=== PATIENT | male | born 1955 | race Caucasian/White ===

== ENCOUNTER → 2016-04-11 | Outpatient (CLI) | payer MEDICARE, MEDICAID ==
[2016-04-11 15:27] LABS: PROTHROMBIN TIME 29.2 SEC (11.4-15.4)
== END ==
LOC: OD 14:45
PROVIDERS: ATTEND Internal Medicine Nephrology
DX: I82.409 Acute embolism and thrombosis of unspecified deep veins of unspecified lower extremity (principal); Z86.711 Personal history of pulmonary embolism; Z92.29 Personal history of other drug therapy
CPT/HCPCS: 36415; 85610

== ENCOUNTER 2016-04-26 12:05 | Emergency (ER) | payer MEDICARE, MEDICAID ==
--- NOTE | 2016-04-26 12:10 | ER Document Report ---
ED Medical Screen (RME) - General Stated Complaint: BREATHING PROBLEM Time seen by provider: 12:09 Mode of Arrival: Wheelchair Information source: Patient Notes: 60-year-old male presents to ED for shortness of breath. He has a history of an enlarged heart with possible CHF. His father states he is noncompliant with his blood pressure cholesterol and diabetes medicine. And does not check his sugar as he is has been instructed to. I have greeted and performed a rapid initial assessment of this patient. A comprehensive ED assessment and evaluation of the patient, analysis of test results and completion of medical decision making process will be conducted by an additional ED providers. TRAVEL OUTSIDE OF THE [place] IN LAST 30 DAYS: No - Related Data Allergies/Adverse Reactions: amlodipine Allergy (Verified 01/04/16 07:57) benazepril [Benazepril] Allergy (Verified 01/04/16 07:57) clonidine Allergy (Verified 01/04/16 07:57) codeine [Codeine] Allergy (Verified 01/04/16 07:57) haloperidol [From Haldol] Allergy (Verified 01/04/16 07:57) minoxidil Allergy (Verified 01/04/16 07:57) nalbuphine Allergy (Verified 01/04/16 07:57) oxycodone Allergy (Verified 01/04/16 07:57) Penicillins Allergy (Verified 01/04/16 07:57) perphenazine Allergy (Verified 01/04/16 07:57) propoxyphene Allergy (Verified 01/04/16 07:57) Sulfa (Sulfonamide Antibiotics) Allergy (Verified 01/04/16 07:57) topiramate Allergy (Verified 01/04/16 07:57) trifluoperazine [From Stelazine] Allergy (Verified 01/04/16 07:57) Past Medical History - Past Medical History Cardiac Medical History: Reports: Hx Congestive Heart Failure, Hx Coronary Artery Disease, Hx DVT, Hx Hypercholesterolemia, Hx Hypertension, Hx Pulmonary Embolism Denies: Hx Atrial Fibrillation, Hx Heart Attack, Hx Peripheral Vascular Disease, Hx Heart Murmur Pulmonary Medical History: Reports: Hx Asthma, Hx COPD, Hx Pneumonia, Hx Sleep Apnea Denies: Hx Bronchitis, Hx Respiratory Failure, Hx Tuberculosis Neurological Medical History: Denies: Hx Cerebrovascular Accident, Hx Seizures Endocrine Medical History: Reports: Hx Diabetes Mellitus Type 2. Denies: Hx Graves' Disease, Hx Hyperthyroidism, Hx Hypothyroidism Malignancy Medical History: Denies Hx Leukemia, Denies Hx Lung Cancer GI Medical History: Reports: Hx Hiatal Hernia. Denies: Hx Crohn's Disease, Hx Gastroesophageal Reflux Disease, Hx Irritable Bowel, Hx Liver Failure, Hx Ulcer Musculoskeltal Medical History: Denies Hx Arthritis, Denies Hx Fibromyalgia, Denies Hx Muscular Dystrophy Psychiatric Medical History: Reports: Hx Anxiety, Hx Depression, Hx Post Traumatic Stress Disorder, Hx Schizophrenia Denies: Hx Bipolar Disorder Traumatic Medical History: Reports: Hx Fractures Infectious Medical History: Denies: Hx HIV Past Surgical History: Reports: Hx Abdominal Surgery - hernia repair, Hx Cardiac Catheterization - 30% blockage, Hx Genitourinary Surgery - VASECTOMY, Hx Herniorrhaphy, Hx Oral Surgery - TOOTH EXTRACTION, Hx Orthopedic Surgery - PLATE SCREWS DISC AND BONE GRAFT: NECK, Hx Tonsillectomy. Denies: Hx Appendectomy, Hx Bowel Surgery, Hx Cholecystectomy, Hx Colostomy, Hx Coronary Artery Bypass Graft, Hx Gastric Bypass Surgery, Hx Pacemaker - Immunizations Hx Diphtheria, Pertussis, Tetanus Vaccination: No
[2016-04-26] MEDS ORDERED: ASPIRIN 81 MG TABLET, CHEWABLE PO ONE (12:11)
--- NOTE | 2016-04-26 12:48 | ER Document Report ---
ED General - General Chief Complaint: Shortness Of Breath Stated Complaint: BREATHING PROBLEM Mode of Arrival: Wheelchair Notes: This is a 60-year-old male with history of schizophrenia, CHF, hypertension, hyperlipidemia, diabetes mellitus, history of PE on chronic anticoagulation who presents complaining of increased shortness of breath. He states that he ran out of his Bumex but did take 2 of his dad's Bumex tablets last night. Patient states he is most comfortable lying flat due to back problems and his very large abdominal girth. He has been able to lay flat. He denies any chest pain. No fever. No cough. He states he was feeling worse last night but is doing somewhat better today. TRAVEL OUTSIDE OF THE [place] IN LAST 30 DAYS: No - Related Data Allergies/Adverse Reactions: amlodipine Allergy (Verified 04/26/16 12:11) benazepril [Benazepril] Allergy (Verified 04/26/16 12:11) clonidine Allergy (Verified 04/26/16 12:11) codeine [Codeine] Allergy (Verified 04/26/16 12:11) haloperidol [From Haldol] Allergy (Verified 04/26/16 12:11) minoxidil Allergy (Verified 04/26/16 12:11) nalbuphine Allergy (Verified 04/26/16 12:11) oxycodone Allergy (Verified 04/26/16 12:11) Penicillins Allergy (Verified 04/26/16 12:11) perphenazine Allergy (Verified 04/26/16 12:11) propoxyphene Allergy (Verified 04/26/16 12:11) Sulfa (Sulfonamide Antibiotics) Allergy (Verified 04/26/16 12:11) topiramate Allergy (Verified 04/26/16 12:11) trifluoperazine [From Stelazine] Allergy (Verified 04/26/16 12:11) Past Medical History - General Information source: Patient - Social History Smoking Status: Unknown if Ever Smoked Frequency of alcohol use: None Drug Abuse: None Lives with: Alone - Father lives close by and checks on him Family History: Reviewed & Not Pertinent Patient has suicidal ideation: No Patient has homicidal ideation: No - Past Medical History Cardiac Medical History: Reports: Hx Congestive Heart Failure, Hx Coronary Artery Disease, Hx DVT, Hx Hypercholesterolemia, Hx Hypertension, Hx Pulmonary Embolism Denies: Hx Atrial Fibrillation, Hx Heart Attack, Hx Peripheral Vascular Disease, Hx Heart Murmur Pulmonary Medical History: Reports: Hx Asthma, Hx COPD, Hx Pneumonia, Hx Sleep Apnea Denies: Hx Bronchitis, Hx Respiratory Failure, Hx Tuberculosis Neurological Medical History: Denies: Hx Cerebrovascular Accident, Hx Seizures Endocrine Medical History: Reports: Hx Diabetes Mellitus Type 2. Denies: Hx Graves' Disease, Hx Hyperthyroidism, Hx Hypothyroidism Renal/ Medical History: Denies: Hx Peritoneal Dialysis Malignancy Medical History: Denies Hx Leukemia, Denies Hx Lung Cancer GI Medical History: Reports: Hx Hiatal Hernia. Denies: Hx Crohn's Disease, Hx Gastroesophageal Reflux Disease, Hx Irritable Bowel, Hx Liver Failure, Hx Ulcer Musculoskeltal Medical History: Denies Hx Arthritis, Denies Hx Fibromyalgia, Denies Hx Muscular Dystrophy Psychiatric Medical History: Reports: Hx Anxiety, Hx Depression, Hx Post Traumatic Stress Disorder, Hx Schizophrenia Denies: Hx Bipolar Disorder Traumatic Medical History: Reports: Hx Fractures Infectious Medical History: Denies: Hx HIV Past Surgical History: Reports: Hx Abdominal Surgery - hernia repair, Hx Cardiac Catheterization - 30% blockage, Hx Genitourinary Surgery - VASECTOMY, Hx Herniorrhaphy, Hx Oral Surgery - TOOTH EXTRACTION, Hx Orthopedic Surgery - PLATE SCREWS DISC AND BONE GRAFT: NECK, Hx Tonsillectomy. Denies: Hx Appendectomy, Hx Bowel Surgery, Hx Cholecystectomy, Hx Colostomy, Hx Coronary Artery Bypass Graft, Hx Gastric Bypass Surgery, Hx Pacemaker - Immunizations Hx Diphtheria, Pertussis, Tetanus Vaccination: No Hx Pneumococcal Vaccination: 04/07/09 Review of Systems - Review of Systems Constitutional: denies: Fever EENT: denies: Nose congestion Cardiovascular: denies: Syncope Respiratory: Short of breath Gastrointestinal: denies: Abdominal pain, Vomiting Genitourinary: denies: Flank pain Musculoskeletal: Leg swelling Hematologic/Lymphatic: Blood clots Neurological/Psychological: denies: Numbness, Tingling Physical Exam - Vital signs Vitals: Resp Pulse Ox 24 H 100 04/26/16 12:30 04/26/16 12:30 - General General appearance: Alert In distress: None - Morbidly obese male, smiling, lying completely flat on the stretcher with 100% oxygen saturation - HEENT Head: Normocephalic Pupils: PERRL Nasal: Normal Mouth/Lips: Normal Pharynx: Normal Neck: Normal - Respiratory Respiratory status: No respiratory distress Breath sounds: Normal - Cardiovascular Rhythm: Regular - Abdominal Inspection: Morbidly Obese Tenderness: Nontender - Extremities General upper extremity: Normal inspection General lower extremity: Edema - Neurological Neuro grossly intact: Yes Orientation: AAOx4 - Psychological Associated symptoms: Normal affect - Skin Skin Temperature: Warm Skin Moisture: Dry Skin Color: Normal Course - Re-evaluation Re-evalutation: 04/26/16 12:47 Pleasant obese male with history of multiple comorbidities who looks completely comfortable lying supine on the stretcher, oxygen saturations are surprisingly 100%. He does have history of PE but states he's been compliant with his Coumadin. He was out of the Bumex temporarily but did get 2 tablets last night of his father's medications. We will perform some screening laboratories and a chest x-ray. I anticipate discharge. - Vital Signs Vital signs: Temp Pulse Resp BP Pulse Ox 24 H 100 04/26/16 12:30 04/26/16 12:30 - Laboratory Result Diagrams: 04/26/16 12:50 04/26/16 12:50 Laboratory results interpreted by me: 04/26/16 04/26/16 04/26/16 12:50 12:50 12:50 RDW 14.6 H PT 18.9 H Glucose 183 H Albumin 3.3 L Discharge - Discharge Clinical Impression: Pulmonary vascular congestion Condition: Good Disposition: HOME, SELF-CARE Additional Instructions: follow up with your doctor as soon as possible. Prescriptions: Bumetanide [Bumex 1 mg Tablet] 1 mg PO BID #60 tablet
--- NOTE | 2016-04-26 13:00 | EKG REPORT ---
SEVERITY:- NORMAL ECG - SINUS RHYTHM : Confirmed by: Richard Go MD 26-Apr-2016 13:00:15
[2016-04-26 13:17] LABS: ABSOLUTE EOSINOPHILS # (AUTO) 0.3 10^3/uL (0.0-0.6); ABSOLUTE LYMPHOCYTES (AUTO) 1.5 10^3/uL (0.5-4.7); ABSOLUTE MONOCYTES (AUTO) 0.6 10^3/uL (0.1-1.4); ABSOLUTE NEUT (AUTO) 5.4 10^3/uL (1.7-8.2); BASOPHILS % (AUTO) 0.6 % (0-2); EOSINOPHILS % (AUTO) 3.3 % (0-6); HEMATOCRIT 40.6 % (37.9-51.0); HEMOGLOBIN 13.5 g/dL (13.5-17.0); HGB HCT DIFFERENCE -0.1; LYMPHOCYTES % (AUTO) 19.3 % (13-45); MEAN CORPUSCULAR HEMOGLOBIN 28.1 pg (27.0-33.4); MEAN CORPUSCULAR HGB CONC 33.1 g/dL (32.0-36.0); MEAN CORPUSCULAR VOLUME 85 fl (80-97); RED CELL DISTRIBUTION WIDTH 14.6 % (11.5-14.0); SEGMENTED NEUTROPHILS % (AUTO) 68.8 % (42-78); WHITE BLOOD COUNT 7.8 10^3/uL (4.0-10.5)
[2016-04-26 13:20] LABS: PARTIAL THROMBOPLASTIN TIME 33.9 SEC (23.5-35.8); PROTHROMBIN TIME 18.9 SEC (11.4-15.4)
[2016-04-26 13:35] LABS: ALANINE AMINOTRANSFERASE 35 U/L (21-72); ALBUMIN 3.3 g/dL (3.5-5.0); ALKALINE PHOSPHATASE 94 U/L (38-126); ANION GAP 10 (5-19); ASPARTATE AMINO TRANSFERASE 28 U/L (17-59); BILIRUBIN,TOTAL 0.5 mg/dL (0.2-1.3); BLOOD UREA NITROGEN 17 mg/dL (7-20); CALCIUM 9.1 mg/dL (8.4-10.2); CARBON DIOXIDE 27 mmol/L (22-30); CHLORIDE 102 mmol/L (98-107); CREATINE KINASE 64 U/L (55-170); CREATININE RESULT 0.66 mg/dL (0.52-1.25); GLUCOSE 183 mg/dL (75-110); MAGNESIUM 1.8 mg/dL (1.6-2.3); POTASSIUM 3.6 mmol/L (3.6-5.0); TOTAL PROTEIN 6.4 g/dL (6.3-8.2)
[2016-04-26 13:45] LABS: CREATINE KINASE MB 0.77 ng/mL (<4.55)
[2016-04-26 13:48] LABS: TROPONIN I < 0.012 ng/mL
[2016-04-26 15:39] VITALS: BP 126/74
== END 2016-04-26 15:40 | disposition home or self-care (01) ==
LOC: ER 12:05
DX: I11.0 Hypertensive heart disease with heart failure (principal); I50.9 Heart failure, unspecified; E11.9 Type 2 diabetes mellitus without complications; R09.89 Other specified symptoms and signs involving the circulatory and respiratory systems; I82.409 Acute embolism and thrombosis of unspecified deep veins of unspecified lower extremity; I26.99 Other pulmonary embolism without acute cor pulmonale; I25.10 Atherosclerotic heart disease of native coronary artery without angina pectoris; I10 Essential (primary) hypertension; J44.9 Chronic obstructive pulmonary disease, unspecified; J45.909 Unspecified asthma, uncomplicated; E66.01 Morbid (severe) obesity due to excess calories; Z79.01 Long term (current) use of anticoagulants; Z88.8 Allergy status to other drugs, medicaments and biological substances; Z88.5 Allergy status to narcotic agent; Z88.0 Allergy status to penicillin; Z88.2 Allergy status to sulfonamides; Z87.01 Personal history of pneumonia (recurrent)
CPT/HCPCS: 93005; 99285; 36415; 82553; 82550; 83735; 85025; 85610; 85730; 80053; 84484; 83880; 71020; 93010; A9270

== ENCOUNTER → 2016-07-30 | Outpatient (CLI) | payer MEDICARE, MEDICAID ==
[2016-07-30 15:19] LABS: PROTHROMBIN TIME 26.4 SEC (11.4-15.4)
[2016-07-30 15:50] LABS: ALANINE AMINOTRANSFERASE 43 U/L (21-72); ALKALINE PHOSPHATASE 130 U/L (38-126); ANION GAP 13 (5-19); ASPARTATE AMINO TRANSFERASE 25 U/L (17-59); BILIRUBIN,DIRECT 0.2 mg/dL (0.0-0.4); BILIRUBIN,TOTAL 0.5 mg/dL (0.2-1.3); BLOOD UREA NITROGEN 10 mg/dL (7-20); CALCIUM 9.4 mg/dL (8.4-10.2); CARBON DIOXIDE 29 mmol/L (22-30); CHLORIDE 97 mmol/L (98-107); CREATININE RESULT 0.72 mg/dL (0.52-1.25); GLUCOSE 282 mg/dL (75-110); POTASSIUM 3.5 mmol/L (3.6-5.0); SODIUM 139.1 mmol/L (137-145); TOTAL PROTEIN 7.2 g/dL (6.3-8.2)
== END ==
LOC: OD 13:49
PROVIDERS: ATTEND Internal Medicine Nephrology
DX: E11.9 Type 2 diabetes mellitus without complications (principal); E78.2 Mixed hyperlipidemia; Z86.711 Personal history of pulmonary embolism
CPT/HCPCS: 36415; 80053; 83036; 85610

== ENCOUNTER 2016-10-09 01:01 | Inpatient (IN) | payer MEDICARE, MEDICAID ==
[2016-10-09] MEDS ORDERED: DOXYCYCLINE HYCLATE INJ 100 MG VIAL IV ONE (06:32)
[2016-10-09] MEDS ORDERED: IPRATROPIUM/ALBUTEROL 0.5-2.5 MG/3 ML AMPUL NEB ONE ×2 (06:33→20:39)
[2016-10-09 07:14] LABS: VENOUS BLOOD BASE EXCESS -3.5 mmol/L; VENOUS BLOOD HCO3 19.2 mmol/L (20-32); VENOUS BLOOD PH 7.45 (7.30-7.42)
[2016-10-09 07:15] LABS: HEMATOCRIT 42.9 % (37.9-51.0); HEMOGLOBIN 14.3 g/dL (13.5-17.0); MEAN CORPUSCULAR HEMOGLOBIN 28.4 pg (27.0-33.4); MEAN CORPUSCULAR HGB CONC 33.3 g/dL (32.0-36.0); MEAN CORPUSCULAR VOLUME 85 fl (80-97); RED BLOOD COUNT 5.03 10^6/uL (4.35-5.55); RED CELL DISTRIBUTION WIDTH 14.4 % (11.5-14.0); WHITE BLOOD COUNT 17.8 10^3/uL (4.0-10.5)
[2016-10-09 07:33] LABS: BLOOD UREA NITROGEN 16 mg/dL (7-20); CALCIUM 9.1 mg/dL (8.4-10.2); CREATININE RESULT 0.77 mg/dL (0.52-1.25); GLUCOSE 132 mg/dL (75-110)
[2016-10-09 07:34] LABS: ANION GAP 12 (5-19); CARBON DIOXIDE 25 mmol/L (22-30); CHLORIDE 101 mmol/L (98-107); POTASSIUM 3.1 mmol/L (3.6-5.0); SODIUM 138.1 mmol/L (137-145)
[2016-10-09 07:36] LABS: BASOPHILS % (MANUAL) 1 % (0-2); EOSINOPHILS % (MANUAL) 0 % (0-6); LYMPHOCYTES % (MANUAL) 3 % (13-45); TOTAL CELLS COUNTED 100
[2016-10-09 07:42] LABS: ANISOCYTOSIS SLIGHT; PLATELET CLUMPS PRESENT; POIKILOCYTOSIS SLIGHT; POLYCHROMASIA SLIGHT; TARGET CELLS SLIGHT; TEAR DROP CELLS SLIGHT
[2016-10-09 07:43] LABS: BAND NEUTROPHILS % (MANUAL) 11 % (3-5)
[2016-10-09 07:54] LABS: PROTHROMBIN TIME 20.6 SEC (11.4-15.4)
[2016-10-09 07:55] LABS: PARTIAL THROMBOPLASTIN TIME 37.4 SEC (23.5-35.8)
--- NOTE | 2016-10-09 08:14 | EKG REPORT ---
SEVERITY:- OTHERWISE NORMAL ECG - SINUS TACHYCARDIA BORDERLINE RIGHT AXIS DEVIATION : Confirmed by: Richard Go MD 09-Oct-2016 08:13:50
--- NOTE | 2016-10-09 08:32 | RADIOLOGY REPORT (SQ) ---
EXAM DESCRIPTION: CHEST PA/LAT COMPLETED DATE/TIME: 10/09/2016 8:10 am REASON FOR STUDY: sob COMPARISON: 04/26/2016 EXAM PARAMETERS: NUMBER OF VIEWS: two views TECHNIQUE: Digital Frontal and Lateral radiographic views of the chest acquired. RADIATION DOSE: NA LIMITATIONS: Poor quality images. FINDINGS: LUNGS AND PLEURA: No opacities, masses or pneumothorax. No pleural effusion. MEDIASTINUM AND HILAR STRUCTURES: No masses or contour abnormalities. HEART AND VASCULAR STRUCTURES: Mild cardiomegaly. BONES: No acute findings. HARDWARE: Status post anterior fusion in the cervical spine. OTHER: No other significant finding. IMPRESSION: Mild cardiomegaly without evidence of acute cardiopulmonary disease. TECHNICAL DOCUMENTATION: JOB ID: [id number]- All Rights Reserved
[2016-10-09] MEDS ORDERED: VANCOMYCIN HCL INJ 1000 MG VIAL IV ONE (09:27)
[2016-10-09] MEDS ORDERED: AMPICILLIN SOD/SULBACTAM 3 GM VIAL IV ONE (09:27)
[2016-10-09] MEDS ORDERED: AZTREONAM INJ 1 GM VIAL IV ONE (09:27)
[2016-10-09] MEDS ORDERED: NORMAL SALINE 1000 ML 1,000 ML IV ONE (09:27)
[2016-10-09] MEDS ORDERED: POTASSIUM CHLORIDE 10 MEQ TABLET.SA PO ONE ×2 (09:30→16:00)
[2016-10-09] MEDS ORDERED: TEMAZEPAM 15 MG CAPSULE PO PRN (09:31)
[2016-10-09] MEDS ORDERED: OXYCODONE-ACETAMINOPHEN 5-325 MG TABLET PO PRN (09:31)
[2016-10-09] MEDS ORDERED: ONDANSETRON HCL INJ/PF 4 MG/2 ML SDV IV PRN (09:31)
--- NOTE | 2016-10-09 09:34 | ER Document Report ---
ED General - General Chief Complaint: fever, body aches, breathing difficulty Stated Complaint: BODY PAIN/CHILLS Time Seen by Provider: 10/09/16 06:10 TRAVEL OUTSIDE OF THE [place] IN LAST 30 DAYS: No - HPI Patient complains to provider of: Fever chills right leg pain Notes: Patient coming in for evaluation of fevers chills right leg pain. Patient states ongoing for approximately last 24 hours. Patient also states mild shortness of breath however did not wear CPAP at night prior to arrival. Patient is lying flat on 2 L her oxygen without any other difficulty or signs of acute respiratory distress. Patient is a diabetic states compliant with medication. Patient states redness is spreading from the right lower extremity from the ankle up to the mid thigh. States as a burning sensation. States subjective fevers not recorded T-max. - Related Data Allergies/Adverse Reactions: amlodipine Allergy (Verified 04/26/16 12:11) benazepril [Benazepril] Allergy (Verified 04/26/16 12:11) clonidine Allergy (Verified 04/26/16 12:11) codeine [Codeine] Allergy (Verified 04/26/16 12:11) haloperidol [From Haldol] Allergy (Verified 04/26/16 12:11) minoxidil Allergy (Verified 04/26/16 12:11) nalbuphine Allergy (Verified 04/26/16 12:11) oxycodone Allergy (Verified 04/26/16 12:11) Penicillins Allergy (Verified 04/26/16 12:11) perphenazine Allergy (Verified 04/26/16 12:11) propoxyphene Allergy (Verified 04/26/16 12:11) Sulfa (Sulfonamide Antibiotics) Allergy (Verified 04/26/16 12:11) topiramate Allergy (Verified 04/26/16 12:11) trifluoperazine [From Stelazine] Allergy (Verified 04/26/16 12:11) Past Medical History - Social History Smoking Status: Unknown if Ever Smoked Family History: Reviewed & Not Pertinent - Past Medical History Cardiac Medical History: Reports: Hx Congestive Heart Failure, Hx Coronary Artery Disease, Hx DVT, Hx Hypercholesterolemia, Hx Hypertension, Hx Pulmonary Embolism Denies: Hx Atrial Fibrillation, Hx Heart Attack, Hx Peripheral Vascular Disease, Hx Heart Murmur Pulmonary Medical History: Reports: Hx Asthma, Hx COPD, Hx Pneumonia, Hx Sleep Apnea Denies: Hx Bronchitis, Hx Respiratory Failure, Hx Tuberculosis Neurological Medical History: Denies: Hx Cerebrovascular Accident, Hx Seizures Endocrine Medical History: Reports: Hx Diabetes Mellitus Type 2. Denies: Hx Graves' Disease, Hx Hyperthyroidism, Hx Hypothyroidism Renal/ Medical History: Denies: Hx Peritoneal Dialysis Malignancy Medical History: Denies Hx Leukemia, Denies Hx Lung Cancer GI Medical History: Reports: Hx Hiatal Hernia. Denies: Hx Crohn's Disease, Hx Gastroesophageal Reflux Disease, Hx Irritable Bowel, Hx Liver Failure, Hx Ulcer Musculoskeltal Medical History: Denies Hx Arthritis, Denies Hx Fibromyalgia, Denies Hx Muscular Dystrophy Psychiatric Medical History: Reports: Hx Anxiety, Hx Depression, Hx Post Traumatic Stress Disorder, Hx Schizophrenia Denies: Hx Bipolar Disorder Traumatic Medical History: Reports: Hx Fractures Infectious Medical History: Denies: Hx HIV Past Surgical History: Reports: Hx Abdominal Surgery - hernia repair, Hx Cardiac Catheterization - 30% blockage, Hx Genitourinary Surgery - VASECTOMY, Hx Herniorrhaphy, Hx Oral Surgery - TOOTH EXTRACTION, Hx Orthopedic Surgery - PLATE SCREWS DISC AND BONE GRAFT: NECK, Hx Tonsillectomy. Denies: Hx Appendectomy, Hx Bowel Surgery, Hx Cholecystectomy, Hx Colostomy, Hx Coronary Artery Bypass Graft, Hx Gastric Bypass Surgery, Hx Pacemaker - Immunizations Hx Diphtheria, Pertussis, Tetanus Vaccination: No Hx Pneumococcal Vaccination: 04/07/09 Review of Systems - Review of Systems Constitutional: Chills, Fever EENT: No symptoms reported Cardiovascular: No symptoms reported Respiratory: No symptoms reported Gastrointestinal: No symptoms reported Genitourinary: No symptoms reported Male Genitourinary: No symptoms reported Musculoskeletal: Other - Erythema of the right lower extremity Skin: No symptoms reported Hematologic/Lymphatic: No symptoms reported Neurological/Psychological: No symptoms reported Physical Exam - Vital signs Vitals: Temp Pulse Resp BP Pulse Ox 98.8 F 116 H 20 198/89 H 94 10/09/16 02:05 10/09/16 02:05 10/09/16 02:05 10/09/16 02:05 10/09/16 02:05 Interpretation: Hypertensive, Tachycardic - General General appearance: Appears well, Alert - HEENT Head: Normocephalic, Atraumatic Eyes: Normal Pupils: PERRL - Respiratory Respiratory status: No respiratory distress Chest status: Nontender Breath sounds: Normal Chest palpation: Normal - Cardiovascular Rhythm: Regular Heart sounds: Normal auscultation Murmur: No - Abdominal Inspection: Normal Distension: No distension Bowel sounds: Normal Tenderness: Nontender Organomegaly: No organomegaly - Back Back: Normal, Nontender - Extremities General upper extremity: Normal inspection, Nontender, Normal color, Normal ROM , Normal temperature General lower extremity: Nontender, Normal color, Normal ROM, Normal temperature , Normal weight bearing. No: Normal inspection - Erythema to the right lower extremity consistent with cellulitis from the ankle above the knee., Zahira's sign - Neurological Neuro grossly intact: Yes Cognition: Normal Orientation: AAOx4 [place] Coma Scale Eye Opening: Spontaneous Chad Coma Scale Verbal: Oriented [place] Coma Scale Motor: Obeys Commands [place] Coma Scale Total: 15 Speech: Normal Motor strength normal: LUE, RUE, LLE, RLE Sensory: Normal - Psychological Associated symptoms: Normal affect, Normal mood - Skin Skin Temperature: Warm Skin Moisture: Dry Skin Color: Normal Course - Re-evaluation Re-evalutation: 10/09/16 14:05 Patient examinations consistent with cellulitis. Patient has elevated leukocytosis with bandemia. Concern is the patient is diabetic. Patient case was discussed with hospitalist will admit for further evaluation. - Vital Signs Vital signs: Temp Pulse Resp BP Pulse Ox 100.3 F 105 H 189 H 150/76 H 96 10/09/16 12:00 10/09/16 12:00 10/09/16 13:39 10/09/16 12:00 10/09/16 13:39 - Laboratory Result Diagrams: 10/09/16 06:58 10/09/16 06:58 Laboratory results interpreted by me: 10/09/16 10/09/16 10/09/16 06:58 06:58 06:58 WBC 17.8 H RDW 14.4 H Seg Neuts % (Manual) 79 H Band Neutrophils % 11 H Lymphocytes % (Manual) 3 L Abs Neuts (Manual) 16.0 H PT 20.6 H APTT 37.4 H VBG pH VBG pCO2 VBG HCO3 Potassium 3.1 L Glucose 132 H 10/09/16 06:58 WBC RDW Seg Neuts % (Manual) Band Neutrophils % Lymphocytes % (Manual) Abs Neuts (Manual) PT APTT VBG pH 7.45 H VBG pCO2 28.0 L VBG HCO3 19.2 L Potassium Glucose Discharge - Discharge Clinical Impression: Morbid obesity with BMI of 50.0-59.9, adult, History of pulmonary embolism, Cellulitis right lower extremity, Diabetes Condition: Good Disposition: ADMITTED INPATIENT Admitting Provider: Shanita Cordoba [facility] Unit Admitted: Telemetry
[2016-10-09] MEDS ORDERED: DEXTROSE 50%-WATER 25 GM/50 ML DISP.SYRIN IV PRN ×2 (09:39)
[2016-10-09] MEDS ORDERED: DEXTROSE 40% GEL 15 GM TUBE PO PRN ×2 (09:39)
[2016-10-09] MEDS ORDERED: GLUCAGON,HUMAN RECOMB 1 MG INJ IM PRN (09:39)
[2016-10-09] MEDS ORDERED: VANCOMYCIN HCL 0 MG in DEXTROSE 5%-WATER 250 ML IV NR (10:30)
[2016-10-09 11:54] LABS: PROTHROMBIN TIME 21.3 SEC (11.4-15.4)
--- NOTE | 2016-10-09 12:18 | PDOC H&P ---
History of Present Illness Admission Date/PCP: 10/09/16 09:34 Patient complains of: Right lower leg cellulitis History of Present Illness: KI DAVIS JR is a 60 year old male with past medical history of diabetes mellitus type 2, morbid obesity, lower extremity DVT, COPD, not on home oxygen, Schizophrenia, depression and lower extremity dermatitis. H with complaints of right lower extremity e [facility] redness and generalized body aches. He denies any fevers or chills. He states the erythema of the right lower extremity began 24 hours ago and has significantly worsened. He denies any trauma to the lower extremity. He has chronic venous stasis changes in both lower extremities as well as history of bilateral DVTs. He is presently on warfarin with subtherapeutic INR. He verbalizes no other complaints at the present time. He denies any shortness of breath or dyspnea. He denies any chest pain. Past Medical History Cardiac Medical History: Reports: Congestive Heart Failure, Coronary Artery Disease, DVT, Hyperlipidema, Hypertension, Pulmonary Embolism Denies: Atrial Fibrillation, Myocardial Infarction, Peripheral Vascular Disease, Heart Murmur Pulmonary Medical History: Reports: Asthma, Chronic Obstructive Pulmonary Disease (COPD), Pneumonia, Sleep Apnea Denies: Bronchitis, Respiratory Failure, Tuberculosis EENT Medical History: Reports: None Neurological Medical History: Denies: Seizures Endocrine Medical History: Reports: Diabetes Mellitus Type 2 Denies: Hyperthyroidism, Hypothyroidism Malignancy Medical History: Denies: Breast Cancer, Cervical Cancer, Leukemia, Lung Cancer, Ovarian Cancer GI Medical History: Reports: Hiatal Hernia Denies: Crohn's Disease, Gastroesophageal Reflux Disease Musculoskeltal Medical History: Denies: Arthritis, Fibromyalgia Psychiatric Medical History: Reports: Depression, Post Traumatic Stress Disorder Denies: Bipolar Disorder Traumatic Medical History: Reports: None Hematology: Reports: None Denies: Anemia, Hemophilia, Sickle Cell Disease Infectious Medical History: Reports: None Denies: HIV Past Surgical History Past Surgical History: Reports: Cardiac Catheterization - 30% blockage, Herniorrhaphy, Orthopedic Surgery - PLATE SCREWS DISC AND BONE GRAFT: NECK, Tonsillectomy Denies: Appendectomy, Cholecystectomy, Colostomy, Coronary Artery Bypass Graft, Gastric Bypass Surgery, Pacemaker Social History Information Source: Patient Lives with: Family Smoking Status: Never Smoker Frequency of Alcohol Use: Rare Hx Recreational Drug Use: No Hx Prescription Drug Abuse: No - Advance Directive Resuscitation Status: Full Code Surrogate healthcare decision maker:: Parents Family History Family History: DM, Hypertension Parental Family History Reviewed: Yes Children Family History Reviewed: Yes Sibling(s) Family History Reviewed.: Yes Medication/Allergy Home Medications: Aspirin [Aspirin EC] 81 mg PO BID 11/29/15 Calcium Carbonate/Vitamin D3 [Calcium 500-Vit D3 400 Tablet] 1 tab PO DAILY PRN 11/29/15 Metformin HCl [Metformin HCl ER] 1,000 mg PO BID 11/29/15 Ubidecarenone [Co Q-10] 10 mg PO DAILY 11/29/15 Vitamin B Complex [B Complex] 1 each PO DAILY 11/29/15 Diphenhydramine HCl [Wal-Dryl] 50 mg PO Q6 PRN 11/30/15 Fexofenadine HCl [Chloe] 180 mg PO DAILY 11/30/15 Fluticasone Propionate [Flonase Nasal [place] 50 Mcg/[place] 16 gm] 2 ea NASL DAILY PRN 11/30/15 Gluc 2Kcl/Chondr/[place] Hy/Hy AC [Glucosamine & Chondroitin Cap] 2 ea PO BID 11/29 [place]-3/Dha/Epa/Fish Oil [Fish Oil 1,000 mg Softgel] 2 cap PO BID 11/30/15 Cariprazine Hydrochloride [Vraylar] 3 mg PO DAILY 12/01/15 Citalopram Hydrobromide [Citalopram HBr] 20 mg PO DAILY 12/01/15 Potassium Chloride 20 meq PO BID 12/01/15 Bumetanide [Bumex 1 mg Tablet] 1 mg PO BID #60 tablet 12/04/15 Carvedilol [Coreg] 25 tab PO BID 01/02/16 Tumeric 1 tab PO DAILY 01/02/16 Warfarin Sodium 5 mg PO .TTHSS 01/02/16 Warfarin Sodium [Coumadin] 10 mg PO .MWF 01/02/16 Enoxaparin Sodium [Lovenox] 1 dose SQ BID 01/04/16 Bumetanide [Bumex 1 mg Tablet] 1 mg PO BID #60 tablet 04/26/16 Allergies/Adverse Reactions: amlodipine Allergy (Verified 04/26/16 12:11) benazepril [Benazepril] Allergy (Verified 04/26/16 12:11) clonidine Allergy (Verified 04/26/16 12:11) codeine [Codeine] Allergy (Verified 04/26/16 12:11) haloperidol [From Haldol] Allergy (Verified 04/26/16 12:11) minoxidil Allergy (Verified 04/26/16 12:11) nalbuphine Allergy (Verified 04/26/16 12:11) oxycodone Allergy (Verified 04/26/16 12:11) Penicillins Allergy (Verified 04/26/16 12:11) perphenazine Allergy (Verified 04/26/16 12:11) propoxyphene Allergy (Verified 04/26/16 12:11) Sulfa (Sulfonamide Antibiotics) Allergy (Verified 04/26/16 12:11) topiramate Allergy (Verified 04/26/16 12:11) trifluoperazine [From Stelazine] Allergy (Verified 04/26/16 12:11) Review of Systems Constitutional: PRESENT: chills Eyes: PRESENT: as per HPI Ears: ABSENT: hearing changes Cardiovascular: ABSENT: chest pain, dyspnea on exertion, edema, orthropnea, palpitations Respiratory: ABSENT: cough, hemoptysis Gastrointestinal: ABSENT: abdominal pain, constipation, diarrhea, hematemesis, hematochezia, nausea, vomiting Genitourinary: ABSENT: dysuria, hematuria Musculoskeletal: PRESENT: back pain Integumentary: PRESENT: erythema, lesions - bilateral lower extremities wounds and dermatitis, wounds Neurological: ABSENT: abnormal gait, abnormal speech, confusion, dizziness, focal weakness, syncope Psychiatric: ABSENT: anxiety, depression, homidical ideation, suicidal ideation Endocrine: ABSENT: cold intolerance, heat intolerance, polydipsia, polyuria Hematologic/Lymphatic: ABSENT: easy bleeding, easy bruising Physical Exam Vital Signs: Temp Pulse Resp BP Pulse Ox 98.0 F 94 9 L 148/80 H 97 10/09/16 10:19 10/09/16 10:19 10/09/16 10:19 10/09/16 10:19 10/09/16 10:19 General appearance: PRESENT: no acute distress, morbidly obese, well-developed, well-nourished Head exam: PRESENT: atraumatic, normocephalic Eye exam: PRESENT: conjunctiva pink, EOMI, PERRLA. ABSENT: scleral icterus Ear exam: PRESENT: normal external ear exam Mouth exam: PRESENT: moist, tongue midline Neck exam: ABSENT: carotid bruit, JVD, lymphadenopathy, thyromegaly Respiratory exam: PRESENT: clear to auscultation katie. ABSENT: rales, rhonchi, wheezes Cardiovascular exam: PRESENT: RRR. ABSENT: diastolic murmur, rubs, systolic murmur Pulses: PRESENT: normal carotid pulses, normal radial pulses Vascular exam: PRESENT: normal capillary refill GI/Abdominal exam: PRESENT: normal bowel sounds, soft Rectal exam: PRESENT: deferred Extremities exam: PRESENT: calf tenderness, full ROM, tenderness - anterior, +1 edema, +2 edema Musculoskeletal exam: PRESENT: ambulatory, full ROM - -year-old, tenderness Neurological exam: PRESENT: alert, awake, oriented to person, oriented to place , oriented to time, oriented to situation, CN II-XII grossly intact, other. ABSENT: motor sensory deficit Psychiatric exam: PRESENT: appropriate affect, normal mood. ABSENT: homicidal ideation, suicidal ideation Skin exam: PRESENT: dry, intact, warm. ABSENT: cyanosis, rash Results Impressions: Chest X-Ray 10/09/16 06:32 IMPRESSION: Mild cardiomegaly without evidence of acute cardiopulmonary disease. Assessment & Plan - Diagnosis (1) Cellulitis of right lower extremity Is this a current diagnosis for this admission?: YesPlan: Will start IV broad spectrum antibiotic coverage with Clindamycin and Vancomycin after blood cultures x 2 obtained (2) Leucocytosis Qualifiers: Leukocytosis type: bandemia Qualified Code(s): D72.825 - Bandemia Is this a current diagnosis for this admission?: YesPlan: Broad spectrum IV antibiotics, blood cultures x 2 and follow (3) Diabetes Qualifiers: Is this a current diagnosis for this admission?: YesPlan: Continue home medications and sliding scale coverage (4) Dyslipidemia Plan: Continue statin (5) Hypertension Qualifiers: Hypertension type: essential hypertension Qualified Code(s): I10 - Essential (primary) hypertension Plan: Continue antihypertensives (6) COPD (chronic obstructive pulmonary disease) Qualifiers: Emphysema type: unspecified Is this a current diagnosis for this admission?: YesPlan: Continue inhalers and nebulizer treatments (7) Diastolic CHF Qualifiers: Congestive heart failure chronicity: chronic Qualified Code(s): I50.32 - Chronic diastolic (congestive) heart failure Is this a current diagnosis for this admission?: YesPlan: Patient appears euvolemic. Will continue current medications (8) History of pulmonary embolism Is this a current diagnosis for this admission?: YesPlan: Continue warfarin will increase dose patient is not therapeutic (9) Morbid obesity with BMI of 50.0-59.9, adult Plan: Counseled (10) AUTUMN (obstructive sleep apnea) Is this a current diagnosis for this admission?: YesPlan: CPAP at HS and prn - Time Time Spent: 50 to 70 Minutes Critical Time spent with patient: 25-34 minutes Medications reviewed and adjusted accordingly: Yes Anticipated discharge: Home with Homehealth - Inpatient Certification Medical Necessity: Significant Comorbidiites Make Outpatient Treatment Too Risky , Need for IV Antibiotics, Risk of Complication if Not Cared For in Hospital
[2016-10-09] MEDS: ENOXAPARIN SODIUM INJ 40 MG/0.4 ML DISP.SYRIN SUBCUT SCH (12:44)
[2016-10-09] MEDS: DOCUSATE SODIUM 100 MG CAPSULE PO SCH ×2 (12:45→17:28)
[2016-10-09] MEDS ORDERED: CLINDAMYCIN 600 MG/D5W RTU 50 ML IV SCH (14:00)
[2016-10-09 14:08] LABS: PATH REVIEW PATHOLOGIST REVIEWED
[2016-10-09] MEDS: VANCOMYCIN HCL 2,000 MG in DEXTROSE 5%-WATER 500 ML IV SCH ×2 (15:39→21:36)
[2016-10-09] MEDS: ACETAMINOPHEN 325 MG TABLET PO PRN ×2 (15:39→21:37)
[2016-10-09] MEDS: CLINDAMYCIN 600 MG/D5W RTU 600 MG/50 ML RTUPB IV SCH (17:28)
[2016-10-09] MEDS ORDERED: IPRATROPIUM/ALBUTEROL 0.5-2.5 MG/3 ML AMPUL NEB PRN (20:36)
[2016-10-09] MEDS ORDERED: WARFARIN SODIUM 7.5 MG TABLET PO SCH (22:00)
[2016-10-09] MEDS: INSULIN LISPRO 100 UNIT/ML 3 ML VIAL SUBCUT PRN (22:36)
[2016-10-10] MEDS: CLINDAMYCIN 600 MG/D5W RTU 600 MG/50 ML RTUPB IV SCH ×3 (01:05→17:26)
[2016-10-10] MEDS: IPRATROPIUM/ALBUTEROL 0.5-2.5 MG/3 ML AMPUL NEB SCH ×4 (01:43→20:13)
[2016-10-10] MEDS: VANCOMYCIN HCL 2,000 MG in DEXTROSE 5%-WATER 500 ML IV SCH ×3 (05:13→21:13)
[2016-10-10 07:07] LABS: ABSOLUTE LYMPHOCYTES (AUTO) 0.7 10^3/uL (0.5-4.7); ABSOLUTE MONOCYTES (AUTO) 0.8 10^3/uL (0.1-1.4); ABSOLUTE NEUT (AUTO) 12.5 10^3/uL (1.7-8.2); BASOPHILS % (AUTO) 0.2 % (0-2); HEMATOCRIT 37.3 % (37.9-51.0); HEMOGLOBIN 12.5 g/dL (13.5-17.0); HGB HCT DIFFERENCE 0.2; LYMPHOCYTES % (AUTO) 5.3 % (13-45); MEAN CORPUSCULAR HEMOGLOBIN 28.4 pg (27.0-33.4); MEAN CORPUSCULAR HGB CONC 33.6 g/dL (32.0-36.0); MEAN CORPUSCULAR VOLUME 84 fl (80-97); MONOCYTES % (AUTO) 5.9 % (3-13); RED BLOOD COUNT 4.42 10^6/uL (4.35-5.55); RED CELL DISTRIBUTION WIDTH 14.9 % (11.5-14.0); SEGMENTED NEUTROPHILS % (AUTO) 88.6 % (42-78); WHITE BLOOD COUNT 14.1 10^3/uL (4.0-10.5)
[2016-10-10 07:26] LABS: ANION GAP 10 (5-19); BLOOD UREA NITROGEN 12 mg/dL (7-20); CALCIUM 8.5 mg/dL (8.4-10.2); CARBON DIOXIDE 24 mmol/L (22-30); CHLORIDE 98 mmol/L (98-107); CREATININE RESULT 0.83 mg/dL (0.52-1.25); GLUCOSE 175 mg/dL (75-110); MAGNESIUM 1.7 mg/dL (1.6-2.3); POTASSIUM 3.5 mmol/L (3.6-5.0); SODIUM 132.4 mmol/L (137-145)
[2016-10-10] MEDS: ACETAMINOPHEN 325 MG TABLET PO PRN ×2 (08:21→17:25)
[2016-10-10] MEDS: INSULIN LISPRO 100 UNIT/ML 3 ML VIAL SUBCUT PRN ×3 (08:21→22:00)
[2016-10-10] MEDS ORDERED: POTASSIUM CHLORIDE 10 MEQ TABLET.SA PO ONE (09:47)
[2016-10-10] MEDS ORDERED: (PENDING PHARMACY ID) (Citalopram Hydrobromide [Citalopram Hbr] 20 MG) PO SCH (10:00)
[2016-10-10] MEDS ORDERED: ENOXAPARIN SODIUM SQ SCH (10:00)
[2016-10-10] MEDS ORDERED: CARIPRAZINE HYDROCHLORIDE 3 MG PO SCH ×2 (10:00→13:00)
[2016-10-10] MEDS: ENOXAPARIN SODIUM INJ 40 MG/0.4 ML DISP.SYRIN SUBCUT SCH (10:03)
[2016-10-10] MEDS: DOCUSATE SODIUM 100 MG CAPSULE PO SCH ×2 (10:03→17:26)
--- NOTE | 2016-10-10 11:40 | PDOC PROGRESS REPORT ---
Subjective Progress Note for:: 10/10/16 Subjective:: Patient is seen on morning rounds. He is resting in bedside chair eating breakfast. He states he feels better than yesterday but is still having pain in the right lower leg and some low grade fevers. He denies any shortness of breath or chest pain. He denies any nausea, diarrhea or abdominal pain. He states he has chronic pain in his back but other than that has no other complaints. Physical Exam Vital Signs: Temp Pulse Resp BP Pulse Ox 102.5 F H 105 H 24 H 147/79 H 95 10/10/16 07:41 10/10/16 07:41 10/10/16 07:41 10/10/16 07:41 10/10/16 07:41 Intake & Output 10/09/16 10/10/16 10/11/16 06:59 06:59 06:59 Intake Total 1820 Output Total 650 Balance 1170 Weight 190.7 kg General appearance: PRESENT: no acute distress, morbidly obese, well-developed, well-nourished Head exam: PRESENT: atraumatic, normocephalic Eye exam: PRESENT: conjunctiva pink, EOMI, PERRLA. ABSENT: scleral icterus Ear exam: PRESENT: normal external ear exam Mouth exam: PRESENT: moist, tongue midline Neck exam: ABSENT: carotid bruit, JVD, lymphadenopathy, thyromegaly Respiratory exam: PRESENT: clear to auscultation katie, decreased breath sounds, symmetrical, unlabored Cardiovascular exam: PRESENT: RRR. ABSENT: diastolic murmur, rubs, systolic murmur Pulses: PRESENT: normal carotid pulses, normal radial pulses Vascular exam: PRESENT: normal capillary refill GI/Abdominal exam: PRESENT: normal bowel sounds, soft Rectal exam: PRESENT: deferred Extremities exam: PRESENT: calf tenderness, tenderness, +2 edema - right lower extremity, +1 left lower extremity Musculoskeletal exam: PRESENT: ambulatory, full ROM, tenderness Neurological exam: PRESENT: alert, awake, oriented to person, oriented to place , oriented to time, oriented to situation, CN II-XII grossly intact. ABSENT: motor sensory deficit Psychiatric exam: PRESENT: anxious Skin exam: PRESENT: erythema, rash - anterior shins, warm, other Results Laboratory Results: 10/10/16 06:27 10/10/16 06:27 10/10/16 10/10/16 06:27 06:27 WBC 14.1 H RBC 4.42 Hgb 12.5 L Hct 37.3 L MCV 84 MCH 28.4 MCHC 33.6 RDW 14.9 H Plt Count 168 Seg Neutrophils % 88.6 H Lymphocytes % 5.3 L Monocytes % 5.9 Eosinophils % 0.0 Basophils % 0.2 Absolute Neutrophils 12.5 H Absolute Lymphocytes 0.7 Absolute Monocytes 0.8 Absolute Eosinophils 0.0 Absolute Basophils 0.0 Sodium 132.4 L Potassium 3.5 L Chloride 98 Carbon Dioxide 24 Anion Gap 10 BUN 12 Creatinine 0.83 Est GFR ( Amer) > 60 Est GFR (Non-Af Amer) > 60 Glucose 175 H Calcium 8.5 Magnesium 1.7 Impressions: Chest X-Ray 10/09/16 06:32 IMPRESSION: Mild cardiomegaly without evidence of acute cardiopulmonary disease. Assessment & Plan - Diagnosis (1) Cellulitis of right lower extremity Is this a current diagnosis for this admission?: YesPlan: Continue current IV antibiotics. Bandemia has resolved. WBCs trending downward (2) Leucocytosis Qualifiers: Leukocytosis type: bandemia Qualified Code(s): D72.825 - Bandemia Is this a current diagnosis for this admission?: YesPlan: Broad spectrum IV antibiotics, blood cultures x 2 and follow (3) Diabetes Qualifiers: Is this a current diagnosis for this admission?: YesPlan: Continue home medications and sliding scale coverage (4) Dyslipidemia Plan: Continue statin (5) Hypertension Qualifiers: Hypertension type: essential hypertension Qualified Code(s): I10 - Essential (primary) hypertension Plan: Continue antihypertensives (6) COPD (chronic obstructive pulmonary disease) Qualifiers: Emphysema type: unspecified Is this a current diagnosis for this admission?: YesPlan: Continue inhalers and nebulizer treatments (7) Diastolic CHF Qualifiers: Congestive heart failure chronicity: chronic Qualified Code(s): I50.32 - Chronic diastolic (congestive) heart failure Is this a current diagnosis for this admission?: YesPlan: Patient appears euvolemic. Will continue current medications (8) History of pulmonary embolism Is this a current diagnosis for this admission?: YesPlan: Continue warfarin will increase dose patient is not therapeutic (9) Morbid obesity with BMI of 50.0-59.9, adult Plan: Counseled (10) AUTUMN (obstructive sleep apnea) Is this a current diagnosis for this admission?: YesPlan: CPAP at HS and prn - Time Time Spent with patient: 25-34 minutes Critical Time spent with patient: 15-24 minutes Medications reviewed and adjusted accordingly: Yes
[2016-10-10] MEDS ORDERED: DIPHENHYDRAMINE HCL 25 MG PO PRN (11:41)
[2016-10-10] MEDS ORDERED: CARVEDILOL 12.5 MG TABLET PO ONE ×2 (12:00→16:00)
[2016-10-10] MEDS ORDERED: BUMETANIDE 1 MG TABLET PO ONE ×2 (12:00→16:00)
[2016-10-10] MEDS ORDERED: DIPHENHYDRAMINE HCL 25 MG CAPSULE PO PRN (12:58)
[2016-10-10] MEDS: CITALOPRAM HYDROBROMIDE 20 MG TABLET PO SCH (15:13)
[2016-10-10] MEDS: METFORMIN HCL 500 MG TABLET PO SCH (15:14)
[2016-10-10] MEDS: GLIMEPIRIDE 1 MG TABLET PO SCH (17:24)
[2016-10-10] MEDS ORDERED: BUMETANIDE 1 MG TABLET PO SCH (18:00)
[2016-10-10] MEDS: NIFEDIPINE 30 MG TAB.ER.24 PO SCH (21:13)
[2016-10-10] MEDS: BUMETANIDE 1 MG TABLET PO SCH (21:15)
[2016-10-10] MEDS: WARFARIN SODIUM 7.5 MG TABLET PO SCH (21:15)
[2016-10-10] MEDS: CARVEDILOL 12.5 MG TABLET PO SCH (21:15)
[2016-10-10] MEDS ORDERED: (PENDING PHARMACY ID) (Nifedipine [Nifedipine Er] 90 MG) PO SCH (22:00)
[2016-10-11] MEDS: CLINDAMYCIN 600 MG/D5W RTU 600 MG/50 ML RTUPB IV SCH ×3 (01:29→17:10)
[2016-10-11] MEDS: IPRATROPIUM/ALBUTEROL 0.5-2.5 MG/3 ML AMPUL NEB SCH ×4 (02:11→20:46)
[2016-10-11 04:57] LABS: ABSOLUTE BASOPHILS # (AUTO) 0.1 10^3/uL (0.0-0.2); ABSOLUTE LYMPHOCYTES (AUTO) 1.1 10^3/uL (0.5-4.7); ABSOLUTE MONOCYTES (AUTO) 1.2 10^3/uL (0.1-1.4); BASOPHILS % (AUTO) 0.7 % (0-2); EOSINOPHILS % (AUTO) 0.1 % (0-6); HEMATOCRIT 36.1 % (37.9-51.0); HEMOGLOBIN 12.1 g/dL (13.5-17.0); HGB HCT DIFFERENCE 0.2; LYMPHOCYTES % (AUTO) 6.9 % (13-45); MEAN CORPUSCULAR HEMOGLOBIN 28.8 pg (27.0-33.4); MEAN CORPUSCULAR HGB CONC 33.6 g/dL (32.0-36.0); MEAN CORPUSCULAR VOLUME 86 fl (80-97); MONOCYTES % (AUTO) 7.6 % (3-13); RED CELL DISTRIBUTION WIDTH 14.8 % (11.5-14.0); SEGMENTED NEUTROPHILS % (AUTO) 84.7 % (42-78); WHITE BLOOD COUNT 15.4 10^3/uL (4.0-10.5)
[2016-10-11 05:13] LABS: ANION GAP 10 (5-19); BLOOD UREA NITROGEN 14 mg/dL (7-20); CALCIUM 8.7 mg/dL (8.4-10.2); CARBON DIOXIDE 26 mmol/L (22-30); CHLORIDE 97 mmol/L (98-107); CREATININE RESULT 0.91 mg/dL (0.52-1.25); GLUCOSE 140 mg/dL (75-110); POTASSIUM 4.2 mmol/L (3.6-5.0); SODIUM 132.7 mmol/L (137-145)
[2016-10-11] MEDS: VANCOMYCIN HCL 2,000 MG in DEXTROSE 5%-WATER 500 ML IV SCH ×3 (05:15→22:10)
[2016-10-11] MEDS: NIFEDIPINE 30 MG TAB.ER.24 PO SCH ×2 (09:17→22:10)
[2016-10-11] MEDS: CARVEDILOL 12.5 MG TABLET PO SCH ×2 (09:17→22:06)
[2016-10-11] MEDS: METFORMIN HCL 500 MG TABLET PO SCH ×2 (09:17→16:21)
[2016-10-11] MEDS: GLIMEPIRIDE 1 MG TABLET PO SCH ×2 (09:18→17:10)
[2016-10-11] MEDS: BUMETANIDE 1 MG TABLET PO SCH ×2 (09:22→22:06)
[2016-10-11] MEDS: DOCUSATE SODIUM 100 MG CAPSULE PO SCH ×2 (09:23→17:21)
[2016-10-11 09:25] LABS: PROTHROMBIN TIME 22.9 SEC (11.4-15.4)
[2016-10-11] MEDS ORDERED: (PENDING PHARMACY ID) (Brexpiprazole [Rexulti] 2 MG) PO SCH (10:00)
[2016-10-11] MEDS ORDERED: (PENDING PHARMACY ID) (Warfarin Sodium [Coumadin] 10 MG) PO SCH (10:00)
[2016-10-11] MEDS: INSULIN LISPRO 100 UNIT/ML 3 ML VIAL SUBCUT PRN ×2 (12:41→17:11)
[2016-10-11] MEDS: CITALOPRAM HYDROBROMIDE 20 MG TABLET PO SCH (12:41)
[2016-10-11] MEDS: NYSTATIN 500000 UNIT/5 ML UDCUP PO SCH ×3 (16:21→22:10)
--- NOTE | 2016-10-11 16:28 | PDOC PROGRESS REPORT ---
Subjective Progress Note for:: 10/11/16 Subjective:: Patient is seen on morning rounds. He is resting in bedside chair eating breakfast. He states he feels better than yesterday but is still having pain in the right lower leg and some low grade fevers. He denies any shortness of breath or chest pain. He denies any nausea, diarrhea or abdominal pain. He states he has chronic pain in his back but other than that has no other complaints. Physical Exam Vital Signs: Temp Pulse Resp BP Pulse Ox 100.6 F H 87 22 H 134/68 H 97 10/11/16 11:09 10/11/16 11:09 10/11/16 11:09 10/11/16 11:09 10/11/16 11:09 Intake & Output 10/10/16 10/11/16 10/12/16 06:59 06:59 06:59 Intake Total 1820 2880 Output Total 650 Balance 1170 2880 Weight 190.7 kg 192.4 kg General appearance: PRESENT: no acute distress, morbidly obese, well-developed, well-nourished Head exam: PRESENT: atraumatic, normocephalic Eye exam: PRESENT: conjunctiva pink, EOMI, PERRLA. ABSENT: scleral icterus Ear exam: PRESENT: normal external ear exam Mouth exam: PRESENT: moist, tongue midline Neck exam: ABSENT: carotid bruit, JVD, lymphadenopathy, thyromegaly Respiratory exam: PRESENT: clear to auscultation katie, symmetrical, unlabored. ABSENT: rales, rhonchi, wheezes Cardiovascular exam: PRESENT: RRR. ABSENT: diastolic murmur, rubs, systolic murmur Pulses: PRESENT: normal carotid pulses, normal radial pulses Vascular exam: PRESENT: other GI/Abdominal exam: PRESENT: normal bowel sounds, soft. ABSENT: distended, guarding, mass, organolmegaly, rebound, tenderness Rectal exam: PRESENT: deferred Extremities exam: PRESENT: full ROM. ABSENT: calf tenderness, clubbing, pedal edema Neurological exam: PRESENT: alert, awake, oriented to person, oriented to place , oriented to time, oriented to situation, CN II-XII grossly intact. ABSENT: motor sensory deficit Psychiatric exam: PRESENT: appropriate affect, normal mood. ABSENT: homicidal ideation, suicidal ideation Skin exam: PRESENT: dry, intact, warm. ABSENT: cyanosis, rash Results Laboratory Results: 10/11/16 04:22 10/11/16 04:22 10/11/16 10/11/16 04:22 04:22 WBC 15.4 H RBC 4.20 L Hgb 12.1 L Hct 36.1 L MCV 86 MCH 28.8 MCHC 33.6 RDW 14.8 H Plt Count 176 Seg Neutrophils % 84.7 H Lymphocytes % 6.9 L Monocytes % 7.6 Eosinophils % 0.1 Basophils % 0.7 Absolute Neutrophils 13.0 H Absolute Lymphocytes 1.1 Absolute Monocytes 1.2 Absolute Eosinophils 0.0 Absolute Basophils 0.1 Sodium 132.7 L Potassium 4.2 Chloride 97 L Carbon Dioxide 26 Anion Gap 10 BUN 14 Creatinine 0.91 Est GFR ( Amer) > 60 Est GFR (Non-Af Amer) > 60 Glucose 140 H Calcium 8.7 Impressions: Chest X-Ray 10/09/16 06:32 IMPRESSION: Mild cardiomegaly without evidence of acute cardiopulmonary disease. Assessment & Plan - Diagnosis (1) Cellulitis of right lower extremity Is this a current diagnosis for this admission?: YesPlan: Continue current IV antibiotics. Bandemia has resolved. WBCs trending downward (2) Leucocytosis Qualifiers: Leukocytosis type: bandemia Qualified Code(s): D72.825 - Bandemia Is this a current diagnosis for this admission?: YesPlan: Broad spectrum IV antibiotics, blood cultures x 2 and follow (3) Diabetes Qualifiers: Is this a current diagnosis for this admission?: YesPlan: Continue home medications and sliding scale coverage (4) Dyslipidemia Plan: Continue statin (5) Hypertension Qualifiers: Hypertension type: essential hypertension Qualified Code(s): I10 - Essential (primary) hypertension Plan: Continue antihypertensives (6) COPD (chronic obstructive pulmonary disease) Qualifiers: Emphysema type: unspecified Is this a current diagnosis for this admission?: YesPlan: Continue inhalers and nebulizer treatments (7) Diastolic CHF Qualifiers: Congestive heart failure chronicity: chronic Qualified Code(s): I50.32 - Chronic diastolic (congestive) heart failure Is this a current diagnosis for this admission?: YesPlan: Patient appears euvolemic. Will continue current medications (8) History of pulmonary embolism Is this a current diagnosis for this admission?: YesPlan: Continue warfarin will increase dose patient is not therapeutic (9) Morbid obesity with BMI of 50.0-59.9, adult Plan: Counseled (10) AUTUMN (obstructive sleep apnea) Is this a current diagnosis for this admission?: YesPlan: CPAP at HS and prn - Time Time Spent with patient: 25-34 minutes Critical Time spent with patient: 15-24 minutes Smoking Cessation Education: 3 to 10 minutes Medications reviewed and adjusted accordingly: Yes Anticipated discharge: Home - Inpatient Certification Based on my medical assessment, after consideration of the patient's comorbidities, presenting symptoms, or acuity I expect that the services needed warrant INPATIENT care.: Yes
[2016-10-11] MEDS: LACTOBACILLUS ACIDOPHILUS 250 MG TAB PO SCH (17:10)
[2016-10-11] MEDS ORDERED: WARFARIN SODIUM 5 MG TABLET PO SCH (22:00)
[2016-10-12] MEDS: CLINDAMYCIN 600 MG/D5W RTU 600 MG/50 ML RTUPB IV SCH ×3 (01:54→17:55)
[2016-10-12] MEDS: IPRATROPIUM/ALBUTEROL 0.5-2.5 MG/3 ML AMPUL NEB SCH ×4 (02:14→20:32)
[2016-10-12 05:31] LABS: ABSOLUTE BASOPHILS # (AUTO) 0.1 10^3/uL (0.0-0.2); ABSOLUTE EOSINOPHILS # (AUTO) 0.1 10^3/uL (0.0-0.6); ABSOLUTE MONOCYTES (AUTO) 1.1 10^3/uL (0.1-1.4); ABSOLUTE NEUT (AUTO) 9.3 10^3/uL (1.7-8.2); BASOPHILS % (AUTO) 0.5 % (0-2); EOSINOPHILS % (AUTO) 0.7 % (0-6); HEMOGLOBIN 11.5 g/dL (13.5-17.0); HGB HCT DIFFERENCE -0.5; LYMPHOCYTES % (AUTO) 8.6 % (13-45); MEAN CORPUSCULAR HEMOGLOBIN 27.9 pg (27.0-33.4); MEAN CORPUSCULAR HGB CONC 32.8 g/dL (32.0-36.0); MEAN CORPUSCULAR VOLUME 85 fl (80-97); MONOCYTES % (AUTO) 9.6 % (3-13); RED BLOOD COUNT 4.11 10^6/uL (4.35-5.55); SEGMENTED NEUTROPHILS % (AUTO) 80.6 % (42-78); WHITE BLOOD COUNT 11.5 10^3/uL (4.0-10.5)
[2016-10-12] MEDS: VANCOMYCIN HCL 2,000 MG in DEXTROSE 5%-WATER 500 ML IV SCH ×3 (06:13→21:49)
[2016-10-12] MEDS ORDERED: (PENDING PHARMACY ID) (Warfarin Sodium 7.5 MG) PO SCH (10:00)
[2016-10-12] MEDS: DOCUSATE SODIUM 100 MG CAPSULE PO SCH ×2 (10:04→17:56)
[2016-10-12] MEDS: CARVEDILOL 12.5 MG TABLET PO SCH ×2 (10:04→21:51)
[2016-10-12] MEDS: LACTOBACILLUS ACIDOPHILUS 250 MG TAB PO SCH ×2 (10:05→17:56)
[2016-10-12] MEDS: GLIMEPIRIDE 1 MG TABLET PO SCH ×2 (10:05→17:56)
[2016-10-12] MEDS: NYSTATIN 500000 UNIT/5 ML UDCUP PO SCH ×4 (10:05→21:49)
[2016-10-12] MEDS: NIFEDIPINE 30 MG TAB.ER.24 PO SCH ×2 (10:05→21:50)
[2016-10-12] MEDS: BUMETANIDE 1 MG TABLET PO SCH ×2 (10:07→21:50)
[2016-10-12] MEDS: METFORMIN HCL 500 MG TABLET PO SCH ×2 (10:09→16:56)
[2016-10-12] MEDS: CITALOPRAM HYDROBROMIDE 20 MG TABLET PO SCH (12:08)
[2016-10-12 15:07] LABS: CREATININE RESULT 1.01 mg/dL (0.52-1.25)
--- NOTE | 2016-10-12 16:00 | PDOC PROGRESS REPORT ---
Subjective Progress Note for:: 10/12/16 Subjective:: Patient is seen on morning rounds. He is resting in bedside chair eating breakfast. He states he feels better than yesterday but is still having pain in the right lower leg. He has not had any fevers overnight He denies any shortness of breath or chest pain. He denies any nausea, diarrhea or abdominal pain. He states he has chronic pain in his back but other than that has no other complaints. Physical Exam Vital Signs: Temp Pulse Resp BP Pulse Ox 98.0 F 86 19 127/62 H 98 10/12/16 15:13 10/12/16 15:13 10/12/16 15:13 10/12/16 15:13 10/12/16 15:13 Intake & Output 10/11/16 10/12/16 10/13/16 06:59 06:59 06:59 Intake Total 2880 2817 1080 Output Total 200 Balance 2880 2617 1080 Weight 192.4 kg 193.3 kg General appearance: PRESENT: no acute distress, morbidly obese, well-developed, well-nourished Head exam: PRESENT: atraumatic, normocephalic Eye exam: PRESENT: conjunctiva pink, EOMI, PERRLA. ABSENT: scleral icterus Ear exam: PRESENT: normal external ear exam Mouth exam: PRESENT: moist, tongue midline Neck exam: ABSENT: carotid bruit, JVD, lymphadenopathy, thyromegaly Respiratory exam: PRESENT: clear to auscultation katie. ABSENT: rales, rhonchi, wheezes Cardiovascular exam: PRESENT: RRR. ABSENT: diastolic murmur, rubs, systolic murmur Pulses: PRESENT: normal dorsalis pedis pul Vascular exam: PRESENT: normal capillary refill GI/Abdominal exam: PRESENT: normal bowel sounds, soft. ABSENT: distended, guarding, mass, organolmegaly, rebound, tenderness Rectal exam: PRESENT: deferred Extremities exam: PRESENT: full ROM. ABSENT: calf tenderness, clubbing, pedal edema Neurological exam: PRESENT: alert, awake, oriented to person, oriented to place , oriented to time, oriented to situation, CN II-XII grossly intact. ABSENT: motor sensory deficit Psychiatric exam: PRESENT: anxious Skin exam: PRESENT: erythema, rash - anterior bilateral rashes, warm Results Laboratory Results: 10/12/16 04:41 10/12/16 14:06 10/12/16 10/12/16 04:41 14:06 WBC 11.5 H RBC 4.11 L Hgb 11.5 L Hct 35.0 L MCV 85 MCH 27.9 MCHC 32.8 RDW 14.0 Plt Count 169 Seg Neutrophils % 80.6 H Lymphocytes % 8.6 L Monocytes % 9.6 Eosinophils % 0.7 Basophils % 0.5 Absolute Neutrophils 9.3 H Absolute Lymphocytes 1.0 Absolute Monocytes 1.1 Absolute Eosinophils 0.1 Absolute Basophils 0.1 Creatinine 1.01 Est GFR ( Amer) > 60 Est GFR (Non-Af Amer) > 60 Impressions: Chest X-Ray 10/09/16 06:32 IMPRESSION: Mild cardiomegaly without evidence of acute cardiopulmonary disease. Assessment & Plan - Diagnosis (1) Cellulitis of right lower extremity Is this a current diagnosis for this admission?: YesPlan: Continue current IV antibiotics. Bandemia has resolved. WBCs trending downward (2) Leucocytosis Qualifiers: Leukocytosis type: bandemia Qualified Code(s): D72.825 - Bandemia Is this a current diagnosis for this admission?: YesPlan: Resolving (3) Diabetes Qualifiers: Is this a current diagnosis for this admission?: YesPlan: Continue home medications and sliding scale coverage (4) Dyslipidemia Plan: Continue statin (5) Hypertension Qualifiers: Hypertension type: essential hypertension Qualified Code(s): I10 - Essential (primary) hypertension Plan: Continue antihypertensives (6) COPD (chronic obstructive pulmonary disease) Qualifiers: Emphysema type: unspecified Is this a current diagnosis for this admission?: YesPlan: Continue inhalers and nebulizer treatments (7) Diastolic CHF Qualifiers: Congestive heart failure chronicity: chronic Qualified Code(s): I50.32 - Chronic diastolic (congestive) heart failure Is this a current diagnosis for this admission?: YesPlan: Patient appears euvolemic. Will continue current medications (8) History of pulmonary embolism Is this a current diagnosis for this admission?: YesPlan: Continue warfarin will increase dose patient is not therapeutic (9) Morbid obesity with BMI of 50.0-59.9, adult Plan: Counseled (10) AUTUMN (obstructive sleep apnea) Is this a current diagnosis for this admission?: YesPlan: CPAP at HS and prn - Time Time Spent with patient: 25-34 minutes Critical Time spent with patient: 15-24 minutes Medications reviewed and adjusted accordingly: Yes Anticipated discharge: Home with Homehealth - Inpatient Certification Based on my medical assessment, after consideration of the patient's comorbidities, presenting symptoms, or acuity I expect that the services needed warrant INPATIENT care.: Yes
[2016-10-12] MEDS: INSULIN LISPRO 100 UNIT/ML 3 ML VIAL SUBCUT PRN (16:56)
[2016-10-12] MEDS: WARFARIN SODIUM 7.5 MG TABLET PO SCH (21:50)
[2016-10-12] MEDS: ACETAMINOPHEN 325 MG TABLET PO PRN (21:50)
[2016-10-13] MEDS: CLINDAMYCIN 600 MG/D5W RTU 600 MG/50 ML RTUPB IV SCH ×3 (01:15→18:36)
[2016-10-13] MEDS: IPRATROPIUM/ALBUTEROL 0.5-2.5 MG/3 ML AMPUL NEB SCH ×4 (02:23→19:57)
[2016-10-13] MEDS: VANCOMYCIN HCL 2,000 MG in DEXTROSE 5%-WATER 500 ML IV SCH (05:44)
[2016-10-13] MEDS: METFORMIN HCL 500 MG TABLET PO SCH ×2 (08:12→15:13)
[2016-10-13] MEDS: CARVEDILOL 12.5 MG TABLET PO SCH ×2 (09:45→22:26)
[2016-10-13] MEDS: NIFEDIPINE 30 MG TAB.ER.24 PO SCH ×2 (09:46→22:26)
[2016-10-13] MEDS: LACTOBACILLUS ACIDOPHILUS 250 MG TAB PO SCH ×2 (09:46→18:36)
[2016-10-13] MEDS: BUMETANIDE 1 MG TABLET PO SCH ×2 (09:46→22:26)
[2016-10-13] MEDS: NYSTATIN 500000 UNIT/5 ML UDCUP PO SCH ×4 (09:46→22:31)
[2016-10-13] MEDS: GLIMEPIRIDE 1 MG TABLET PO SCH ×2 (09:47→18:36)
[2016-10-13] MEDS: DOCUSATE SODIUM 100 MG CAPSULE PO SCH ×2 (09:48→18:37)
--- NOTE | 2016-10-13 10:00 | PDOC PROGRESS REPORT ---
Subjective Progress Note for:: 10/13/16 Subjective:: Patient is seen on morning rounds. He is resting in bedside chair eating breakfast. He states he slept well last night. He is still having some pain in right lower leg but it is improving. Leg is now draining some serous fluid from blisters. He has not had any fevers overnight He denies any shortness of breath or chest pain. He denies any nausea, diarrhea or abdominal pain. He states he has chronic pain in his back but other than that has no other complaints. Physical Exam Vital Signs: Temp Pulse Resp BP Pulse Ox 98.3 F 95 16 119/61 90 L 10/13/16 07:51 10/13/16 09:09 10/13/16 09:09 10/13/16 07:51 10/13/16 09:09 Intake & Output 10/12/16 10/13/16 10/14/16 06:59 06:59 06:59 Intake Total 2817 3130 Output Total 200 100 Balance 2617 3030 Weight 193.3 kg 196.4 kg General appearance: PRESENT: no acute distress, morbidly obese, well-developed, well-nourished Head exam: PRESENT: atraumatic, normocephalic Eye exam: PRESENT: conjunctiva pink, EOMI, PERRLA. ABSENT: scleral icterus Ear exam: PRESENT: normal external ear exam Mouth exam: PRESENT: moist, tongue midline Teeth exam: PRESENT: edentulous Neck exam: ABSENT: carotid bruit, JVD, lymphadenopathy, thyromegaly Respiratory exam: PRESENT: clear to auscultation katie. ABSENT: rales, rhonchi, wheezes Cardiovascular exam: PRESENT: RRR. ABSENT: diastolic murmur, rubs, systolic murmur Pulses: PRESENT: normal carotid pulses, normal radial pulses Vascular exam: PRESENT: normal capillary refill GI/Abdominal exam: PRESENT: normal bowel sounds, soft. ABSENT: distended, guarding, mass, organolmegaly, rebound, tenderness Rectal exam: PRESENT: deferred Extremities exam: PRESENT: full ROM. ABSENT: calf tenderness, clubbing, pedal edema Neurological exam: PRESENT: alert, awake, oriented to person, oriented to place , oriented to time, oriented to situation, CN II-XII grossly intact. ABSENT: motor sensory deficit Psychiatric exam: PRESENT: appropriate affect, normal mood. ABSENT: homicidal ideation, suicidal ideation Skin exam: PRESENT: dry, intact, warm. ABSENT: cyanosis, rash Results Laboratory Results: 10/12/16 04:41 10/12/16 14:06 10/12/16 14:06 Creatinine 1.01 Est GFR ( Amer) > 60 Est GFR (Non-Af Amer) > 60 Impressions: Chest X-Ray 10/09/16 06:32 IMPRESSION: Mild cardiomegaly without evidence of acute cardiopulmonary disease. Assessment & Plan - Diagnosis (1) Cellulitis of right lower extremity Is this a current diagnosis for this admission?: YesPlan: Continue current IV antibiotics. Bandemia has resolved. WBCs trending downward (2) Leucocytosis Qualifiers: Leukocytosis type: bandemia Qualified Code(s): D72.825 - Bandemia Is this a current diagnosis for this admission?: YesPlan: Resolving (3) Diabetes Qualifiers: Is this a current diagnosis for this admission?: YesPlan: Continue home medications and sliding scale coverage (4) Dyslipidemia Plan: Continue statin (5) Hypertension Qualifiers: Hypertension type: essential hypertension Qualified Code(s): I10 - Essential (primary) hypertension Plan: Continue antihypertensives (6) COPD (chronic obstructive pulmonary disease) Qualifiers: Emphysema type: unspecified Is this a current diagnosis for this admission?: Yes (7) Diastolic CHF Qualifiers: Congestive heart failure chronicity: chronic Qualified Code(s): I50.32 - Chronic diastolic (congestive) heart failure Is this a current diagnosis for this admission?: YesPlan: Patient appears euvolemic. Will continue current medications (8) History of pulmonary embolism Is this a current diagnosis for this admission?: YesPlan: Continue warfarin will increase dose patient is not therapeutic (9) Morbid obesity with BMI of 50.0-59.9, adult Plan: Counseled (10) AUTUMN (obstructive sleep apnea) Is this a current diagnosis for this admission?: YesPlan: CPAP at HS and prn - Time Time Spent with patient: 25-34 minutes Critical Time spent with patient: 15-24 minutes Medications reviewed and adjusted accordingly: Yes
[2016-10-13] MEDS: CITALOPRAM HYDROBROMIDE 20 MG TABLET PO SCH (11:49)
[2016-10-13] MEDS: VANCOMYCIN HCL 1,500 MG in DEXTROSE 5%-WATER 250 ML IV SCH (19:25)
[2016-10-13] MEDS: WARFARIN SODIUM 7.5 MG TABLET PO SCH (22:27)
[2016-10-14] MEDS: IPRATROPIUM/ALBUTEROL 0.5-2.5 MG/3 ML AMPUL NEB SCH ×4 (01:57→20:03)
[2016-10-14] MEDS: CLINDAMYCIN 600 MG/D5W RTU 600 MG/50 ML RTUPB IV SCH ×3 (02:31→17:14)
[2016-10-14] MEDS: VANCOMYCIN HCL 1,500 MG in DEXTROSE 5%-WATER 250 ML IV SCH ×3 (03:24→18:12)
[2016-10-14 06:49] LABS: HEMATOCRIT 34.6 % (37.9-51.0); HEMOGLOBIN 11.3 g/dL (13.5-17.0); HGB HCT DIFFERENCE -0.7; MEAN CORPUSCULAR HEMOGLOBIN 27.8 pg (27.0-33.4); MEAN CORPUSCULAR HGB CONC 32.6 g/dL (32.0-36.0); MEAN CORPUSCULAR VOLUME 85 fl (80-97); RED BLOOD COUNT 4.07 10^6/uL (4.35-5.55); RED CELL DISTRIBUTION WIDTH 14.5 % (11.5-14.0); WHITE BLOOD COUNT 15.5 10^3/uL (4.0-10.5)
[2016-10-14 06:55] LABS: PROTHROMBIN TIME 28.4 SEC (11.4-15.4)
[2016-10-14 06:56] LABS: ANION GAP 11 (5-19); BLOOD UREA NITROGEN 21 mg/dL (7-20); CALCIUM 8.4 mg/dL (8.4-10.2); CARBON DIOXIDE 22 mmol/L (22-30); CHLORIDE 93 mmol/L (98-107); CREATININE RESULT 0.88 mg/dL (0.52-1.25); GLUCOSE 130 mg/dL (75-110); POTASSIUM 3.8 mmol/L (3.6-5.0); SODIUM 126.3 mmol/L (137-145)
[2016-10-14 07:07] LABS: BAND NEUTROPHILS % (MANUAL) 4 % (3-5); BASOPHILS % (MANUAL) 0 % (0-2); EOSINOPHILS % (MANUAL) 0 % (0-6); LYMPHOCYTES % (MANUAL) 3 % (13-45); TOTAL CELLS COUNTED 100
[2016-10-14 07:11] LABS: TOXIC GRANULATION SLIGHT; TOXIC VACUOLATION PRESENT
[2016-10-14 07:12] LABS: ANISOCYTOSIS SLIGHT; HYPOCHROMASIA SLIGHT; POLYCHROMASIA SLIGHT
[2016-10-14] MEDS: METFORMIN HCL 500 MG TABLET PO SCH ×2 (08:52→17:14)
[2016-10-14] MEDS: GLIMEPIRIDE 1 MG TABLET PO SCH ×2 (10:09→17:15)
[2016-10-14] MEDS: DOCUSATE SODIUM 100 MG CAPSULE PO SCH ×2 (10:09→17:26)
[2016-10-14] MEDS: LACTOBACILLUS ACIDOPHILUS 250 MG TAB PO SCH ×2 (10:09→17:15)
[2016-10-14] MEDS: CARVEDILOL 12.5 MG TABLET PO SCH ×2 (10:09→21:17)
[2016-10-14] MEDS: NIFEDIPINE 30 MG TAB.ER.24 PO SCH ×2 (10:09→21:17)
[2016-10-14] MEDS: NYSTATIN 500000 UNIT/5 ML UDCUP PO SCH ×4 (10:09→21:18)
[2016-10-14] MEDS: CITALOPRAM HYDROBROMIDE 20 MG TABLET PO SCH (11:08)
[2016-10-14] MEDS ORDERED: CETIRIZINE 10 MG TABLET PO SCH (12:00)
[2016-10-14] MEDS ORDERED: FLUTICASONE NASAL SPRAY 50 MCG/SPRY 120 SPRAY/16 GM NASL SCH (12:00)
[2016-10-14] MEDS: CEFEPIME 2 GM/D5W RTU 2 GM/50 ML RTUPB IV SCH ×2 (14:57→23:02)
[2016-10-14] MEDS: ACETAMINOPHEN 325 MG TABLET PO PRN (14:59)
[2016-10-14] MEDS ORDERED: ONDANSETRON HCL INJ/PF 4 MG/2 ML SDV IV PRN (15:22)
[2016-10-14] MEDS ORDERED: TEMAZEPAM 15 MG CAPSULE PO PRN (15:23)
[2016-10-14] MEDS ORDERED: OXYCODONE-ACETAMINOPHEN 5-325 MG TABLET PO PRN (15:24)
--- NOTE | 2016-10-14 15:29 | PDOC PROGRESS REPORT ---
Subjective Progress Note for:: 10/14/16 Subjective:: Patient is seen on morning rounds. He is resting in bed on CPAP. He states he slept well last night. He is still having some pain in right lower leg but it is improving. Leg is now draining some serous fluid from blisters. He has not had any fevers overnight He denies any shortness of breath or chest pain. He denies any nausea, diarrhea or abdominal pain. He states he has chronic pain in his back but other than that has no other complaints. Physical Exam Vital Signs: Temp Pulse Resp BP Pulse Ox 98.3 F 81 18 143/69 H 96 10/14/16 11:35 10/14/16 14:00 10/14/16 14:00 10/14/16 11:35 10/14/16 14:00 Intake & Output 10/13/16 10/14/16 10/15/16 06:59 06:59 06:59 Intake Total 3130 5390 Output Total 100 2550 Balance 3030 2840 Weight 196.4 kg 196.4 kg General appearance: PRESENT: no acute distress, cooperative, morbidly obese, well-developed, well-nourished Head exam: PRESENT: atraumatic, normocephalic Eye exam: PRESENT: conjunctiva pink, EOMI, PERRLA. ABSENT: scleral icterus Ear exam: PRESENT: normal external ear exam Mouth exam: PRESENT: moist, tongue midline Neck exam: ABSENT: carotid bruit, JVD, lymphadenopathy, thyromegaly Respiratory exam: PRESENT: clear to auscultation katie, symmetrical, unlabored. ABSENT: rales, rhonchi, wheezes Cardiovascular exam: PRESENT: RRR. ABSENT: diastolic murmur, rubs, systolic murmur Pulses: PRESENT: normal carotid pulses, normal radial pulses Vascular exam: PRESENT: normal capillary refill GI/Abdominal exam: PRESENT: soft Rectal exam: PRESENT: deferred Extremities exam: PRESENT: full ROM, tenderness - +3 edema of left lower extremity, with blistered areas that are draining. Improvement of erythema an, other - Left lower extremity with several eschared areas of dermatitis and vesicles from edema that have burst and are draining.. ABSENT: calf tenderness , clubbing, pedal edema Musculoskeletal exam: PRESENT: tenderness Neurological exam: PRESENT: alert, awake, oriented to person, oriented to place , oriented to time, oriented to situation, CN II-XII grossly intact. ABSENT: motor sensory deficit Psychiatric exam: PRESENT: flat affect Skin exam: PRESENT: abrasion, erythema, skin tears, vesicles, other Results Laboratory Results: 10/14/16 05:43 10/14/16 05:43 10/14/16 10/14/16 05:43 05:43 WBC 15.5 H RBC 4.07 L Hgb 11.3 L Hct 34.6 L MCV 85 MCH 27.8 MCHC 32.6 RDW 14.5 H Plt Count 261 Seg Neutrophils % Not Reportable Lymphocytes % Not Reportable Monocytes % Not Reportable Eosinophils % Not Reportable Basophils % Not Reportable Absolute Neutrophils Not Reportable Absolute Lymphocytes Not Reportable Absolute Monocytes Not Reportable Absolute Eosinophils Not Reportable Absolute Basophils Not Reportable Sodium 126.3 L Potassium 3.8 Chloride 93 L Carbon Dioxide 22 Anion Gap 11 BUN 21 H Creatinine 0.88 Est GFR ( Amer) > 60 Est GFR (Non-Af Amer) > 60 Glucose 130 H Calcium 8.4 Impressions: Chest X-Ray 10/09/16 06:32 IMPRESSION: Mild cardiomegaly without evidence of acute cardiopulmonary disease. Assessment & Plan - Diagnosis (1) Cellulitis of right lower extremity Is this a current diagnosis for this admission?: YesPlan: Continue current IV antibiotics. Erythema has improved. Slight increase in leucocytosis today. Will continue IV antibiotics (2) Leucocytosis Qualifiers: Leukocytosis type: bandemia Qualified Code(s): D72.825 - Bandemia Is this a current diagnosis for this admission?: YesPlan: Bump up today after trending downward. Blood cultures are negative. Wound culture is pending (3) Diabetes Qualifiers: Is this a current diagnosis for this admission?: YesPlan: Continue home medications and sliding scale coverage (5) Hypertension Qualifiers: Hypertension type: essential hypertension Qualified Code(s): I10 - Essential (primary) hypertension (6) COPD (chronic obstructive pulmonary disease) Qualifiers: Emphysema type: unspecified Is this a current diagnosis for this admission?: Yes (7) Diastolic CHF Qualifiers: Congestive heart failure chronicity: chronic Qualified Code(s): I50.32 - Chronic diastolic (congestive) heart failure Is this a current diagnosis for this admission?: YesPlan: Patient appears euvolemic. Will continue current medications (8) History of pulmonary embolism Is this a current diagnosis for this admission?: YesPlan: Continue warfarin will increase dose patient is not therapeutic (9) Morbid obesity with BMI of 50.0-59.9, adult Plan: Counseled (10) AUTUMN (obstructive sleep apnea) Is this a current diagnosis for this admission?: YesPlan: CPAP at HS and prn (11) Anticoagulant long-term use Plan: On Warfarin. Hx DVTs and PE (12) Lower extremity deep venous thrombosis Qualifiers: Chronicity: chronic Laterality: bilateral Is this a current diagnosis for this admission?: YesPlan: Patient has history of bilateral lower extremity DVTs . He is anticoagulated on Warfarin with therapeutic INR (13) Hyponatremia Is this a current diagnosis for this admission?: YesPlan: Appears slightly hypovolemic secondary to infection and chronic diuretic therapy. Will hold Bumex today, recheck in am with serum osmolality - Time Time Spent with patient: 25-34 minutes Critical Time spent with patient: 15-24 minutes Medications reviewed and adjusted accordingly: Yes
[2016-10-14 18:28] LABS: CREATININE RESULT 0.94 mg/dL (0.52-1.25)
[2016-10-14] MEDS: MONTELUKAST SODIUM 10 MG TABLET PO SCH (21:18)
[2016-10-14] MEDS: WARFARIN SODIUM 7.5 MG TABLET PO SCH (21:18)
[2016-10-15] MEDS: CLINDAMYCIN 600 MG/D5W RTU 600 MG/50 ML RTUPB IV SCH ×3 (01:21→18:18)
[2016-10-15] MEDS: IPRATROPIUM/ALBUTEROL 0.5-2.5 MG/3 ML AMPUL NEB SCH ×4 (01:48→20:47)
[2016-10-15 04:53] LABS: ABSOLUTE BASOPHILS # (AUTO) 0.1 10^3/uL (0.0-0.2); ABSOLUTE EOSINOPHILS # (AUTO) 0.3 10^3/uL (0.0-0.6); ABSOLUTE LYMPHOCYTES (AUTO) 1.1 10^3/uL (0.5-4.7); ABSOLUTE MONOCYTES (AUTO) 1.4 10^3/uL (0.1-1.4); ABSOLUTE NEUT (AUTO) 12.8 10^3/uL (1.7-8.2); BASOPHILS % (AUTO) 0.8 % (0-2); EOSINOPHILS % (AUTO) 1.7 % (0-6); HEMATOCRIT 33.5 % (37.9-51.0); HEMOGLOBIN 11.3 g/dL (13.5-17.0); HGB HCT DIFFERENCE 0.4; LYMPHOCYTES % (AUTO) 6.9 % (13-45); MEAN CORPUSCULAR HEMOGLOBIN 28.1 pg (27.0-33.4); MEAN CORPUSCULAR HGB CONC 33.6 g/dL (32.0-36.0); MEAN CORPUSCULAR VOLUME 84 fl (80-97); MONOCYTES % (AUTO) 8.7 % (3-13); RED BLOOD COUNT 4.01 10^6/uL (4.35-5.55); RED CELL DISTRIBUTION WIDTH 14.7 % (11.5-14.0); SEGMENTED NEUTROPHILS % (AUTO) 81.9 % (42-78); WHITE BLOOD COUNT 15.6 10^3/uL (4.0-10.5)
[2016-10-15 05:06] LABS: ANION GAP 11 (5-19); BLOOD UREA NITROGEN 20 mg/dL (7-20); CALCIUM 8.6 mg/dL (8.4-10.2); CARBON DIOXIDE 23 mmol/L (22-30); CHLORIDE 95 mmol/L (98-107); CREATININE RESULT 0.95 mg/dL (0.52-1.25); GLUCOSE 108 mg/dL (75-110); POTASSIUM 4.1 mmol/L (3.6-5.0); SODIUM 128.6 mmol/L (137-145)
[2016-10-15] MEDS: NYSTATIN 500000 UNIT/5 ML UDCUP PO SCH ×4 (10:18→21:46)
[2016-10-15] MEDS: CARVEDILOL 12.5 MG TABLET PO SCH ×2 (10:41→21:35)
[2016-10-15] MEDS: GLIMEPIRIDE 1 MG TABLET PO SCH ×2 (10:41→18:19)
[2016-10-15] MEDS: NIFEDIPINE 30 MG TAB.ER.24 PO SCH ×2 (10:42→21:35)
[2016-10-15] MEDS: METFORMIN HCL 500 MG TABLET PO SCH (10:42)
[2016-10-15] MEDS: LACTOBACILLUS ACIDOPHILUS 250 MG TAB PO SCH ×2 (10:42→18:19)
[2016-10-15] MEDS: DOCUSATE SODIUM 100 MG CAPSULE PO SCH ×2 (10:44→18:15)
--- NOTE | 2016-10-15 11:54 | PDOC PROGRESS REPORT ---
Subjective Progress Note for:: 10/15/16 Subjective:: reason for visit: f/u cellulitis hospital course: per other's notes - "KI DAVIS JR is a 60 year old male with past medical history of diabetes mellitus type 2, morbid obesity, lower extremity DVT, COPD, not on home oxygen,Schizophrenia, depression and lower extremity dermatitis. H with complaints of right lower extremity e presents to [facility] emergency department redness and generalized body aches. He denies any fevers or chills. He states the erythema of the right lower extremity began 24 hours ago and has significantly worsened. He ( initially) denies any trauma to the lower extremity. He has chronic venous stasis changes in both lower extremities as well as history of bilateral DVTs. He is presently on warfarin with subtherapeutic INR. He verbalizes no other complaints at the present time. He denies any shortness of breath or dyspnea. He denies any chest pain." he was admitted and started on broad spectrum abx with little improvement, blisters continue to form and leg is weeping more with clear yellow, sticky fluid saturating the bed and dripping onto the floor when in dependent position. His mother confronted me in the [place] to inform me that his right foot fell through the floor of his home about a month ago leaving a deep scrape that he refused to seek treatment of, choosing instead to treat with soaks and salves at home until finally presenting to the ED this admit. he continues to c/o pain in the leg as sharp, stabbing in the calf radiating up in to his hip and down into his foot, better if left dangling, worse with palpation, constant and slightly worse than yesterday. ROS: all systems reviewed, see above, remaining systems negative. Physical Exam Vital Signs: Temp Pulse Resp BP Pulse Ox 99.0 F 82 18 146/70 H 95 10/15/16 07:28 10/15/16 09:20 10/15/16 09:20 10/15/16 07:28 10/15/16 09:20 Intake & Output 10/14/16 10/15/16 10/16/16 06:59 06:59 06:59 Intake Total 5390 2390 Output Total 2550 4150 Balance 2840 -1760 Weight 196.4 kg 183.6 kg General appearance: PRESENT: no acute distress, morbidly obese, well-developed, well-nourished Head exam: PRESENT: atraumatic, normocephalic Eye exam: PRESENT: EOMI. ABSENT: scleral icterus Mouth exam: PRESENT: moist, tongue midline Teeth exam: PRESENT: poor dentation Neck exam: PRESENT: full ROM. ABSENT: tracheal deviation Respiratory exam: PRESENT: crackles, rhonchi, unlabored, wheezes. ABSENT: accessory muscle use Cardiovascular exam: PRESENT: RRR, tachycardia Pulses: PRESENT: normal radial pulses Vascular exam: PRESENT: pallor - bilat feet GI/Abdominal exam: PRESENT: normal bowel sounds - massive pannus, soft. ABSENT : tenderness Extremities exam: PRESENT: clubbing. ABSENT: calf tenderness Musculoskeletal exam: PRESENT: ambulatory, full ROM Neurological exam: PRESENT: alert, awake, oriented to person, oriented to place , oriented to time Psychiatric exam: PRESENT: appropriate affect, normal mood Skin exam: PRESENT: rash - Right lower leg is encompassed with coalescing blisters and sloughing of skin with cool to the touch bright red erythema from top of foot to just below the knee, weeping clear yellow thin sticky fluid, no foul odor. right leg and calf a full 2-3cms larger than left., warm Results Laboratory Results: 10/15/16 04:11 10/15/16 04:11 10/14/16 10/15/16 10/15/16 17:53 04:11 04:11 WBC 15.6 H RBC 4.01 L Hgb 11.3 L Hct 33.5 L MCV 84 MCH 28.1 MCHC 33.6 RDW 14.7 H Plt Count 289 Seg Neutrophils % 81.9 H Lymphocytes % 6.9 L Monocytes % 8.7 Eosinophils % 1.7 Basophils % 0.8 Absolute Neutrophils 12.8 H Absolute Lymphocytes 1.1 Absolute Monocytes 1.4 Absolute Eosinophils 0.3 Absolute Basophils 0.1 Sodium 128.6 L Potassium 4.1 Chloride 95 L Carbon Dioxide 23 Anion Gap 11 BUN 20 Creatinine 0.94 0.95 Est GFR ( Amer) > 60 > 60 Est GFR (Non-Af Amer) > 60 > 60 Glucose 108 Serum Osmolality Calcium 8.6 Magnesium 2.0 C-Reactive Protein 10/15/16 10/15/16 04:11 04:11 WBC RBC Hgb Hct MCV MCH MCHC RDW Plt Count Seg Neutrophils % Lymphocytes % Monocytes % Eosinophils % Basophils % Absolute Neutrophils Absolute Lymphocytes Absolute Monocytes Absolute Eosinophils Absolute Basophils Sodium Potassium Chloride Carbon Dioxide Anion Gap BUN Creatinine Est GFR ( Amer) Est GFR (Non-Af Amer) Glucose Serum Osmolality 271 L Calcium Magnesium C-Reactive Protein 185.0 H culx's so far not helpful Impressions: Chest X-Ray 10/09/16 06:32 IMPRESSION: Mild cardiomegaly without evidence of acute cardiopulmonary disease. Status: Imported from PACS Assessment & Plan - Diagnosis (1) Cellulitis of right lower extremity Is this a current diagnosis for this admission?: YesPlan: this is his primary and most pressing problem and not really getting better with abx, worrisome for staph scalded skin syndrome given its appearance and apparent worsening. ck u/s leg for occlusive DVT given his hx and subTx INR at presentation. On review of the record, I do not see where we have documented actual clot in imaging, unclear how long he's been on warfarin. May need more advance imaging of the leg for deep tissue wound. trend CRP. (2) Diabetes Qualifiers: Diabetes mellitus type: type 2 Diabetes mellitus complication status: with circulatory complication Diabetes mellitus complication detail: with peripheral angiopathy without gangrene Diabetes mellitus watermaster insulin use: with watermaster use Qualified Code(s): E11.51 - Type 2 diabetes mellitus with diabetic peripheral angiopathy without gangrene; Z79.4 - termite renewal inspector (current) use of insulin Is this a current diagnosis for this admission?: YesPlan: continue current regimen but hold metformin in case we need CT of the leg with contrast (3) Hypertension Qualifiers: Hypertension type: essential hypertension Qualified Code(s): I10 - Essential (primary) hypertension Is this a current diagnosis for this admission?: YesPlan: not at goal, titrate regimen as needed to reach <125/85 (4) Hyponatremia Is this a current diagnosis for this admission?: YesPlan: slightly better today, continue to monitor (5) Anticoagulant long-term use Plan: therapeutic today, continue monitor INR. (6) COPD (chronic obstructive pulmonary disease) Qualifiers: Emphysema type: unspecified Is this a current diagnosis for this admission?: YesPlan: a little wheezing today, continue nebs (7) Diastolic CHF Qualifiers: Congestive heart failure chronicity: chronic Qualified Code(s): I50.32 - Chronic diastolic (congestive) heart failure Is this a current diagnosis for this admission?: Yes (8) History of pulmonary embolism Is this a current diagnosis for this admission?: Yes (10) AUTUMN (obstructive sleep apnea) Is this a current diagnosis for this admission?: Yes - Time Time Spent with patient: 35 or more minutes Medications reviewed and adjusted accordingly: Yes - Plan Summary Plan Summary: f/u venous dopplers and if continues to worsen then get ct leg with contrast and may need debridement if deep tissue wound noted
--- NOTE | 2016-10-15 11:57 | XCELERA REPORT ---
[address] [address] Lower Extremity Venous Evaluation Name: KI DAVIS VincentJR Age: 60 yrs Gender: Male : 1955 Patient Status: Inpatient Patient Location: 4N\S\[facility]\S\A Study Date: 10/15/2016 11:07 AM Procedure: Color flow and duplex imaging of the veins of the right lower extremity as well as the left Common Femoral vein. Reason For Study: Rt leg swelling, hx of remote DVT, subTx INR Ordering Physician: MICHELLE AVALOS Performed By: Bon Jackson Right Sided Venous Evaluation Normal vessel filling wall to wall, compression and augmentation as well as Colour flow down to the infrageniculate veins. Left Sided Venous Evaluation The left common femoral vein is fully compressible. Spontaneous and phasic flow is present in the left common femoral vein. Interpretation Summary No duplex evidence of DVT or obstruction in the right lower extremity nor in the left Common Femoral vein. : MICHELLE AVALOS > Christiano Camargo
[2016-10-15] MEDS: VANCOMYCIN HCL 1,250 MG in DEXTROSE 5%-WATER 250 ML IV SCH ×2 (13:02→21:35)
[2016-10-15] MEDS: FLUTICASONE NASAL SPRAY 50 MCG/SPRY 120 SPRAY/16 GM NASL SCH (13:11)
[2016-10-15] MEDS: CITALOPRAM HYDROBROMIDE 20 MG TABLET PO SCH (13:11)
[2016-10-15] MEDS: CETIRIZINE 10 MG TABLET PO SCH (13:11)
[2016-10-15] MEDS: CEFEPIME 2 GM/D5W RTU 2 GM/50 ML RTUPB IV SCH ×2 (13:11→23:46)
[2016-10-15] MEDS: ACETAMINOPHEN 325 MG TABLET PO PRN (15:45)
--- NOTE | 2016-10-15 18:30 | RADIOLOGY REPORT (SQ) ---
EXAM DESCRIPTION: CT RT LOWER EXTREMITY WITH COMPLETED DATE/TIME: 10/15/2016 6:10 pm REASON FOR STUDY: possible deep tissue infection, gangrene COMPARISON: None. TECHNIQUE: Axial imaging performed through the right lower extremity with reformatted coronal and sa gittal imaging windowed for bone and soft tissues. Images saved to PACS. 3D IMAGING: Were 3D images as MIP, SSD, or volume rendering performed at the work station? No All CT scanners at this facility use dose modulation, iterative reconstruction, and/or weight based d osing when appropriate to reduce radiation dose to as low as reasonably achievable (ALARA). [facility]: Dose Right [facility]: CareDose [facility]: Dose Right [facility]: Teradose 4D [facility]: [employer] LIMITATIONS: None. RADIATION DOSE: Up-to-date CT equipment and radiation dose reduction techniques were employed. CTDIv ol: 4.2 mGy. DLP: 287 mGy-cm. mGy. FINDINGS: SOFT TISSUES: There is superficial soft tissue stranding in the subcutaneous fat which cou ld represent edematous or inflammatory changes. There appears to be some associated skin thickening. The muscular fat and soft tissue planes appear well preserved. No obvious fluid collections are id entified. BONES: No acute fracture. No dislocation. No definite lytic areas or cortical erosions are identifi ed to suggest bony involvement by osteomyelitis. MINERALIZATION: Normal. OTHER: No other significant finding. IMPRESSION: There is superficial soft tissue stranding in the subcutaneous fat which could represent edematous or inflammatory changes. There appears to be some associated skin thickening. The appear ance is consistent with a cellulitis. No discrete fluid collections are identified to suggest an abs cess collection. Other findings as noted above TECHNICAL DOCUMENTATION: JOB ID: [id number] Quality ID # [id number]: Final reports with documentation of one or more dose reduction techniques (e.g., Au tomated exposure control, adjustment of the mA and/or kV according to patient size, use of iterative reconstruction technique) 2010 [employer]- All Rights Reserved
[2016-10-15] MEDS: MONTELUKAST SODIUM 10 MG TABLET PO SCH (21:35)
[2016-10-15] MEDS: BUMETANIDE 1 MG TABLET PO SCH (21:35)
[2016-10-15] MEDS: WARFARIN SODIUM 7.5 MG TABLET PO SCH (21:35)
[2016-10-16] MEDS: CLINDAMYCIN 600 MG/D5W RTU 600 MG/50 ML RTUPB IV SCH ×2 (01:30→09:59)
[2016-10-16] MEDS: IPRATROPIUM/ALBUTEROL 0.5-2.5 MG/3 ML AMPUL NEB SCH ×4 (02:22→19:40)
[2016-10-16 06:27] LABS: ABSOLUTE BASOPHILS # (AUTO) 0.1 10^3/uL (0.0-0.2); ABSOLUTE EOSINOPHILS # (AUTO) 0.2 10^3/uL (0.0-0.6); ABSOLUTE LYMPHOCYTES (AUTO) 0.9 10^3/uL (0.5-4.7); ABSOLUTE MONOCYTES (AUTO) 1.4 10^3/uL (0.1-1.4); ABSOLUTE NEUT (AUTO) 13.1 10^3/uL (1.7-8.2); BASOPHILS % (AUTO) 0.8 % (0-2); EOSINOPHILS % (AUTO) 1.1 % (0-6); HEMATOCRIT 34.3 % (37.9-51.0); HEMOGLOBIN 11.3 g/dL (13.5-17.0); HGB HCT DIFFERENCE -0.4; LYMPHOCYTES % (AUTO) 5.7 % (13-45); MEAN CORPUSCULAR HEMOGLOBIN 27.8 pg (27.0-33.4); MEAN CORPUSCULAR VOLUME 84 fl (80-97); MONOCYTES % (AUTO) 9.1 % (3-13); RED BLOOD COUNT 4.06 10^6/uL (4.35-5.55); RED CELL DISTRIBUTION WIDTH 14.5 % (11.5-14.0); SEGMENTED NEUTROPHILS % (AUTO) 83.3 % (42-78); WHITE BLOOD COUNT 15.8 10^3/uL (4.0-10.5)
[2016-10-16 06:54] LABS: ANION GAP 11 (5-19); BLOOD UREA NITROGEN 16 mg/dL (7-20); CALCIUM 8.4 mg/dL (8.4-10.2); CARBON DIOXIDE 24 mmol/L (22-30); CHLORIDE 99 mmol/L (98-107); CREATININE RESULT 0.95 mg/dL (0.52-1.25); GLUCOSE 69 mg/dL (75-110); POTASSIUM 4.4 mmol/L (3.6-5.0)
[2016-10-16 07:08] LABS: C-REACTIVE PROTEIN 161.9 mg/L (<10.0)
[2016-10-16] MEDS: BUMETANIDE 1 MG TABLET PO SCH ×2 (09:57→22:55)
[2016-10-16] MEDS: LACTOBACILLUS ACIDOPHILUS 250 MG TAB PO SCH ×2 (09:58→17:46)
[2016-10-16] MEDS: GLIMEPIRIDE 1 MG TABLET PO SCH ×2 (09:58→17:46)
[2016-10-16] MEDS: CARVEDILOL 12.5 MG TABLET PO SCH ×2 (09:58→22:55)
[2016-10-16] MEDS: DOCUSATE SODIUM 100 MG CAPSULE PO SCH ×2 (09:58→17:47)
[2016-10-16] MEDS: NIFEDIPINE 30 MG TAB.ER.24 PO SCH ×2 (09:58→22:55)
[2016-10-16] MEDS: NYSTATIN 500000 UNIT/5 ML UDCUP PO SCH ×4 (09:59→22:56)
[2016-10-16] MEDS: CEFEPIME 2 GM/D5W RTU 2 GM/50 ML RTUPB IV SCH (11:15)
--- NOTE | 2016-10-16 12:09 | PDOC PROGRESS REPORT ---
Subjective Progress Note for:: 10/16/16 Subjective:: reason for visit: f/u cellulitis hospital course: per other's notes - "KI DAVIS JR is a 60 year old male with past medical history of diabetes mellitus type 2, morbid obesity, lower extremity DVT, COPD, not on home oxygen,Schizophrenia, depression and lower extremity dermatitis. H with complaints of right lower extremity e presents to [facility] emergency department redness and generalized body aches. He denies any fevers or chills. He states the erythema of the right lower extremity began 24 hours ago and has significantly worsened. He ( initially) denies any trauma to the lower extremity. He has chronic venous stasis changes in both lower extremities as well as history of bilateral DVTs. He is presently on warfarin with subtherapeutic INR. He verbalizes no other complaints at the present time. He denies any shortness of breath or dyspnea. He denies any chest pain." he was admitted and started on broad spectrum abx with little improvement, blisters continue to form and leg is weeping more with clear yellow, sticky fluid saturating the bed and dripping onto the floor when in dependent position. His mother confronted me in the uriostegui to inform me that his right foot fell through the floor of his home about a month ago leaving a deep scrape that he refused to seek treatment of, choosing instead to treat with soaks and salves at home until finally presenting to the ED this admit. he continues to c/o pain in the leg as sharp, stabbing in the calf radiating up in to his hip and down into his foot, better if left dangling, worse with palpation, constant and slightly worse than yesterday. ROS: all systems reviewed, see above, remaining systems negative. Physical Exam Vital Signs: Temp Pulse Resp BP Pulse Ox 99.5 F 77 18 150/81 H 93 10/16/16 07:59 10/16/16 07:59 10/16/16 07:59 10/16/16 07:59 10/16/16 07:59 Intake & Output 10/15/16 10/16/16 10/17/16 06:59 06:59 06:59 Intake Total 2390 2590 Output Total 4150 3250 Balance -1760 -660 Weight 183.6 kg 186.5 kg General appearance: PRESENT: no acute distress, morbidly obese, well-developed, well-nourished Head exam: PRESENT: atraumatic, normocephalic Eye exam: PRESENT: EOMI. ABSENT: scleral icterus Mouth exam: PRESENT: moist, tongue midline Teeth exam: PRESENT: poor dentation Neck exam: PRESENT: full ROM. ABSENT: tracheal deviation Respiratory exam: PRESENT: crackles, rhonchi, unlabored, wheezes. ABSENT: accessory muscle use Cardiovascular exam: PRESENT: RRR, tachycardia Pulses: PRESENT: normal radial pulses Vascular exam: PRESENT: pallor - bilat feet GI/Abdominal exam: PRESENT: normal bowel sounds - massive pannus, soft. ABSENT : tenderness Extremities exam: PRESENT: clubbing. ABSENT: calf tenderness Musculoskeletal exam: PRESENT: ambulatory, full ROM Neurological exam: PRESENT: alert, awake, oriented to person, oriented to place , oriented to time Psychiatric exam: PRESENT: appropriate affect, normal mood Skin exam: PRESENT: rash - Right lower leg is encompassed with coalescing blisters and sloughing of skin with cool to the touch bright red erythema from top of foot to just below the knee, weeping clear yellow thin sticky fluid, no foul odor. right leg and calf a full 2-3cms larger than left., warm Results Laboratory Results: 10/16/16 05:56 10/16/16 05:56 10/16/16 10/16/16 05:56 05:56 WBC 15.8 H RBC 4.06 L Hgb 11.3 L Hct 34.3 L MCV 84 MCH 27.8 MCHC 33.0 RDW 14.5 H Plt Count 341 Seg Neutrophils % 83.3 H Lymphocytes % 5.7 L Monocytes % 9.1 Eosinophils % 1.1 Basophils % 0.8 Absolute Neutrophils 13.1 H Absolute Lymphocytes 0.9 Absolute Monocytes 1.4 Absolute Eosinophils 0.2 Absolute Basophils 0.1 Sodium 134.0 L Potassium 4.4 Chloride 99 Carbon Dioxide 24 Anion Gap 11 BUN 16 Creatinine 0.95 Est GFR ( Amer) > 60 Est GFR (Non-Af Amer) > 60 Glucose 69 L Calcium 8.4 C-Reactive Protein 161.9 H 10/13/16 10:35 Leg - Right Cellulitis Gram Stain - Final 10/13/16 10:35 Leg - Right Cellulitis Wound Culture - Final Skin Belkis Impressions: Lower Extremity CT 07/11/17 00:00 IMPRESSION: There is superficial soft tissue stranding in the subcutaneous fat which could represent edematous or inflammatory changes. There appears to be some associated skin thickening. The appearance is consistent with a cellulitis. No discrete fluid collections are identified to suggest an abscess collection. Other findings as noted above Assessment & Plan - Diagnosis (1) Cellulitis of right lower extremity Is this a current diagnosis for this admission?: YesPlan: this is his primary and most pressing problem and not really getting better with abx, worrisome for staph scalded skin syndrome given its appearance. u/s leg negative for occlusive DVT. On review of the record, I do not see where we have documented actual clot in imaging, unclear how long he's been on warfarin. ct of the leg neg deep tissue wound or abscess. trend CRP. will start "wet" dressings with aquacel qod to try and keep this skin sloughing off exposing the tissue under the dermis. (2) Hyponatremia Is this a current diagnosis for this admission?: YesPlan: slightly better again today, continue to monitor (3) Anticoagulant long-term use Plan: f/u INR in am (4) COPD (chronic obstructive pulmonary disease) Qualifiers: Emphysema type: unspecified Is this a current diagnosis for this admission?: YesPlan: a little better today, continue nebs (5) Diastolic CHF Qualifiers: Congestive heart failure chronicity: chronic Qualified Code(s): I50.32 - Chronic diastolic (congestive) heart failure Is this a current diagnosis for this admission?: Yes (6) History of pulmonary embolism Is this a current diagnosis for this admission?: Yes (8) AUTUMN (obstructive sleep apnea) Is this a current diagnosis for this admission?: Yes (9) Diabetes Qualifiers: Diabetes mellitus type: type 2 Diabetes mellitus complication status: with circulatory complication Diabetes mellitus complication detail: with peripheral angiopathy without gangrene Diabetes mellitus extermination supervisor insulin use: with group home use Qualified Code(s): E11.51 - Type 2 diabetes mellitus with diabetic peripheral angiopathy without gangrene; Z79.4 - assisted (current) use of insulin Is this a current diagnosis for this admission?: Yes (10) Hypertension Qualifiers: Hypertension type: essential hypertension Qualified Code(s): I10 - Essential (primary) hypertension Is this a current diagnosis for this admission?: Yes - Time Time Spent with patient: 15-24 minutes - Plan Summary Plan Summary: start more aggressive dressing changes and if no improvement will need transfer to higher level of care with active wound care consultative team.
[2016-10-16] MEDS: VANCOMYCIN HCL 1,250 MG in DEXTROSE 5%-WATER 250 ML IV SCH ×2 (12:15→22:55)
[2016-10-16 12:47] LABS: PROTHROMBIN TIME 30.9 SEC (11.4-15.4)
[2016-10-16] MEDS: CITALOPRAM HYDROBROMIDE 20 MG TABLET PO SCH (14:17)
[2016-10-16] MEDS: FLUTICASONE NASAL SPRAY 50 MCG/SPRY 120 SPRAY/16 GM NASL SCH (14:18)
[2016-10-16] MEDS: CETIRIZINE 10 MG TABLET PO SCH (14:18)
[2016-10-16] MEDS: ACETAMINOPHEN 325 MG TABLET PO PRN (20:53)
[2016-10-16 22:13] LABS: CREATININE RESULT 0.88 mg/dL (0.52-1.25)
[2016-10-16] MEDS: WARFARIN SODIUM 7.5 MG TABLET PO SCH (22:55)
[2016-10-16] MEDS: MONTELUKAST SODIUM 10 MG TABLET PO SCH (22:55)
[2016-10-17] MEDS: CEFEPIME 2 GM/D5W RTU 2 GM/50 ML RTUPB IV SCH ×2 (02:39→11:19)
[2016-10-17] MEDS: IPRATROPIUM/ALBUTEROL 0.5-2.5 MG/3 ML AMPUL NEB SCH ×4 (03:01→19:44)
[2016-10-17] MEDS: ACETAMINOPHEN 325 MG TABLET PO PRN (04:14)
[2016-10-17 05:00] LABS: ABSOLUTE BASOPHILS # (AUTO) 0.2 10^3/uL (0.0-0.2); ABSOLUTE EOSINOPHILS # (AUTO) 0.1 10^3/uL (0.0-0.6); ABSOLUTE LYMPHOCYTES (AUTO) 1.2 10^3/uL (0.5-4.7); ABSOLUTE MONOCYTES (AUTO) 1.4 10^3/uL (0.1-1.4); ABSOLUTE NEUT (AUTO) 11.2 10^3/uL (1.7-8.2); BASOPHILS % (AUTO) 1.4 % (0-2); EOSINOPHILS % (AUTO) 0.9 % (0-6); HEMATOCRIT 33.6 % (37.9-51.0); HEMOGLOBIN 10.9 g/dL (13.5-17.0); HGB HCT DIFFERENCE -0.9; LYMPHOCYTES % (AUTO) 8.4 % (13-45); MEAN CORPUSCULAR HEMOGLOBIN 27.7 pg (27.0-33.4); MEAN CORPUSCULAR HGB CONC 32.4 g/dL (32.0-36.0); MEAN CORPUSCULAR VOLUME 85 fl (80-97); MONOCYTES % (AUTO) 9.8 % (3-13); RED BLOOD COUNT 3.94 10^6/uL (4.35-5.55); RED CELL DISTRIBUTION WIDTH 14.9 % (11.5-14.0); SEGMENTED NEUTROPHILS % (AUTO) 79.5 % (42-78); WHITE BLOOD COUNT 14.1 10^3/uL (4.0-10.5)
[2016-10-17 05:24] LABS: ANION GAP 12 (5-19); BLOOD UREA NITROGEN 13 mg/dL (7-20); CALCIUM 8.3 mg/dL (8.4-10.2); CARBON DIOXIDE 25 mmol/L (22-30); CHLORIDE 100 mmol/L (98-107); CREATININE RESULT 0.99 mg/dL (0.52-1.25); GLUCOSE 90 mg/dL (75-110); POTASSIUM 4.3 mmol/L (3.6-5.0); SODIUM 137.3 mmol/L (137-145)
[2016-10-17 05:55] LABS: C-REACTIVE PROTEIN 161.5 mg/L (<10.0)
--- NOTE | 2016-10-17 11:14 | PDOC PROGRESS REPORT ---
Subjective Progress Note for:: 10/17/16 Subjective:: reason for visit: f/u cellulitis hospital course: per other's notes - "KI DAVIS JR is a 60 year old male with past medical history of diabetes mellitus type 2, morbid obesity, lower extremity DVT, COPD, not on home oxygen,Schizophrenia, depression and lower extremity dermatitis. H with complaints of right lower extremity e presents to [facility] emergency department redness and generalized body aches. He denies any fevers or chills. He states the erythema of the right lower extremity began 24 hours ago and has significantly worsened. He ( initially) denies any trauma to the lower extremity. He has chronic venous stasis changes in both lower extremities as well as history of bilateral DVTs. He is presently on warfarin with subtherapeutic INR. He verbalizes no other complaints at the present time. He denies any shortness of breath or dyspnea. He denies any chest pain." he was admitted and started on broad spectrum abx with little improvement, blisters continue to form and leg is weeping more with clear yellow, sticky fluid saturating the bed and dripping onto the floor when in dependent position. His mother confronted me in the uriostegui to inform me that his right foot fell through the floor of his home about a month ago leaving a deep scrape that he refused to seek treatment of, choosing instead to treat with soaks and salves at home until finally presenting to the ED this admit. he continues to c/o pain in the leg as sharp, stabbing in the calf radiating up in to his hip and down into his foot, better if left dangling, worse with palpation, constant and only slightly better than yesterday. ROS: all systems reviewed, see above, remaining systems negative. Physical Exam Vital Signs: Temp Pulse Resp BP Pulse Ox 99.4 F 81 18 147/71 H 96 10/17/16 08:00 10/17/16 08:00 10/17/16 08:00 10/17/16 08:00 10/17/16 08:00 Intake & Output 10/16/16 10/17/16 10/18/16 06:59 06:59 06:59 Intake Total 2590 2978 Output Total 3250 1000 Balance -660 1977 Weight 186.5 kg 186.5 kg General appearance: PRESENT: no acute distress, morbidly obese, well-developed, well-nourished Head exam: PRESENT: atraumatic, normocephalic Eye exam: PRESENT: EOMI. ABSENT: scleral icterus Mouth exam: PRESENT: moist, tongue midline Teeth exam: PRESENT: poor dentation Neck exam: PRESENT: full ROM. ABSENT: tracheal deviation Respiratory exam: PRESENT: crackles, unlabored, ABSENT: accessory muscle use, wheezes or rhonchi Cardiovascular exam: PRESENT: RRR, tachycardia Pulses: PRESENT: normal radial pulses Vascular exam: PRESENT: pallor - bilat feet GI/Abdominal exam: PRESENT: normal bowel sounds - massive pannus, soft. ABSENT : tenderness Extremities exam: PRESENT: clubbing. ABSENT: calf tenderness Musculoskeletal exam: PRESENT: ambulatory, full ROM Neurological exam: PRESENT: alert, awake, oriented to person, oriented to place , oriented to time Psychiatric exam: PRESENT: appropriate affect, normal mood Skin exam: PRESENT: rash - Right lower leg is encompassed with coalescing blisters and sloughing of skin with hot to the touch bright red erythema from top of foot to just below the knee, weeping clear yellow thin sticky fluid, no foul odor. right leg and calf a full 2-3cms larger than left., warm Results Laboratory Results: 10/17/16 04:46 10/17/16 04:46 10/16/16 10/17/16 10/17/16 21:47 04:46 04:46 WBC 14.1 H RBC 3.94 L Hgb 10.9 L Hct 33.6 L MCV 85 MCH 27.7 MCHC 32.4 RDW 14.9 H Plt Count 340 Seg Neutrophils % 79.5 H Lymphocytes % 8.4 L Monocytes % 9.8 Eosinophils % 0.9 Basophils % 1.4 Absolute Neutrophils 11.2 H Absolute Lymphocytes 1.2 Absolute Monocytes 1.4 Absolute Eosinophils 0.1 Absolute Basophils 0.2 Sodium 137.3 Potassium 4.3 Chloride 100 Carbon Dioxide 25 Anion Gap 12 BUN 13 Creatinine 0.88 0.99 Est GFR ( Amer) > 60 > 60 Est GFR (Non-Af Amer) > 60 > 60 Glucose 90 Calcium 8.3 L C-Reactive Protein 161.5 H 10/13/16 10:35 Leg - Right Cellulitis Gram Stain - Final 10/13/16 10:35 Leg - Right Cellulitis Wound Culture - Final Skin Belkis Impressions: Chest X-Ray 10/09/16 06:32 IMPRESSION: Mild cardiomegaly without evidence of acute cardiopulmonary disease. Lower Extremity CT 10/15/16 00:00 IMPRESSION: There is superficial soft tissue stranding in the subcutaneous fat which could represent edematous or inflammatory changes. There appears to be some associated skin thickening. The appearance is consistent with a cellulitis. No discrete fluid collections are identified to suggest an abscess collection. Other findings as noted above Assessment & Plan - Diagnosis (1) Cellulitis of right lower extremity Is this a current diagnosis for this admission?: YesPlan: this is his primary and most pressing problem and not really getting better with abx, worrisome for staph scalded skin syndrome given its appearance. u/s leg negative for occlusive DVT. ct of the leg neg deep tissue wound or abscess. trend CRP. continue "wet" dressings with algacite qod to try and keep this skin sloughing off and exposing the tissue under the dermis. if no improvement by tomorrow then may need transfer to facility with inpatient wound care and ID to help guide abx. (2) Hyponatremia Is this a current diagnosis for this admission?: Yes (4) COPD (chronic obstructive pulmonary disease) Qualifiers: Emphysema type: unspecified Is this a current diagnosis for this admission?: Yes (5) Diastolic CHF Qualifiers: Congestive heart failure chronicity: chronic Qualified Code(s): I50.32 - Chronic diastolic (congestive) heart failure Is this a current diagnosis for this admission?: Yes (6) History of pulmonary embolism Is this a current diagnosis for this admission?: Yes (8) AUTUMN (obstructive sleep apnea) Is this a current diagnosis for this admission?: Yes (9) Diabetes Qualifiers: Diabetes mellitus type: type 2 Diabetes mellitus complication status: with circulatory complication Diabetes mellitus complication detail: with peripheral angiopathy without gangrene Diabetes mellitus oysterman insulin use: with oysterman use Qualified Code(s): E11.51 - Type 2 diabetes mellitus with diabetic peripheral angiopathy without gangrene; Z79.4 - half-way (current) use of insulin Is this a current diagnosis for this admission?: Yes (10) Hypertension Qualifiers: Hypertension type: essential hypertension Qualified Code(s): I10 - Essential (primary) hypertension Is this a current diagnosis for this admission?: Yes - Time Time Spent with patient: 15-24 minutes
[2016-10-17] MEDS: LACTOBACILLUS ACIDOPHILUS 250 MG TAB PO SCH ×2 (11:19→17:08)
[2016-10-17] MEDS: GLIMEPIRIDE 1 MG TABLET PO SCH ×2 (11:20→17:08)
[2016-10-17] MEDS: CITALOPRAM HYDROBROMIDE 20 MG TABLET PO SCH (11:20)
[2016-10-17] MEDS: NIFEDIPINE 30 MG TAB.ER.24 PO SCH ×2 (11:20→21:41)
[2016-10-17] MEDS: CETIRIZINE 10 MG TABLET PO SCH (11:21)
[2016-10-17] MEDS: CARVEDILOL 12.5 MG TABLET PO SCH ×2 (11:21→21:41)
[2016-10-17] MEDS: BUMETANIDE 1 MG TABLET PO SCH ×2 (11:25→21:39)
[2016-10-17] MEDS: FLUTICASONE NASAL SPRAY 50 MCG/SPRY 120 SPRAY/16 GM NASL SCH (11:26)
[2016-10-17] MEDS: VANCOMYCIN HCL 1,250 MG in DEXTROSE 5%-WATER 250 ML IV SCH ×2 (11:26→21:41)
[2016-10-17] MEDS: NYSTATIN 500000 UNIT/5 ML UDCUP PO SCH ×4 (11:27→21:42)
[2016-10-17] MEDS: DOCUSATE SODIUM 100 MG CAPSULE PO SCH ×2 (11:27→17:08)
[2016-10-17 12:21] LABS: PROTHROMBIN TIME 29.4 SEC (11.4-15.4)
[2016-10-17] MEDS: MONTELUKAST SODIUM 10 MG TABLET PO SCH (21:40)
[2016-10-17] MEDS: WARFARIN SODIUM 7.5 MG TABLET PO SCH (21:40)
[2016-10-18] MEDS: CEFEPIME 2 GM/D5W RTU 2 GM/50 ML RTUPB IV SCH ×2 (00:58→11:31)
[2016-10-18] MEDS: IPRATROPIUM/ALBUTEROL 0.5-2.5 MG/3 ML AMPUL NEB SCH ×4 (01:59→19:58)
[2016-10-18 05:06] LABS: ABSOLUTE BASOPHILS # (AUTO) 0.1 10^3/uL (0.0-0.2); ABSOLUTE EOSINOPHILS # (AUTO) 0.1 10^3/uL (0.0-0.6); ABSOLUTE LYMPHOCYTES (AUTO) 1.3 10^3/uL (0.5-4.7); ABSOLUTE MONOCYTES (AUTO) 1.1 10^3/uL (0.1-1.4); ABSOLUTE NEUT (AUTO) 10.2 10^3/uL (1.7-8.2); BASOPHILS % (AUTO) 0.9 % (0-2); EOSINOPHILS % (AUTO) 1.1 % (0-6); HEMATOCRIT 32.6 % (37.9-51.0); HEMOGLOBIN 10.5 g/dL (13.5-17.0); HGB HCT DIFFERENCE -1.1; LYMPHOCYTES % (AUTO) 9.9 % (13-45); MEAN CORPUSCULAR HEMOGLOBIN 27.6 pg (27.0-33.4); MEAN CORPUSCULAR HGB CONC 32.4 g/dL (32.0-36.0); MEAN CORPUSCULAR VOLUME 85 fl (80-97); MONOCYTES % (AUTO) 8.3 % (3-13); RED BLOOD COUNT 3.82 10^6/uL (4.35-5.55); RED CELL DISTRIBUTION WIDTH 14.9 % (11.5-14.0); SEGMENTED NEUTROPHILS % (AUTO) 79.8 % (42-78); WHITE BLOOD COUNT 12.8 10^3/uL (4.0-10.5)
[2016-10-18] MEDS: LACTOBACILLUS ACIDOPHILUS 250 MG TAB PO SCH ×2 (09:28→17:42)
[2016-10-18] MEDS: CARVEDILOL 12.5 MG TABLET PO SCH ×2 (09:28→22:58)
[2016-10-18] MEDS: NIFEDIPINE 30 MG TAB.ER.24 PO SCH ×2 (09:28→22:58)
[2016-10-18] MEDS: VANCOMYCIN HCL 1,250 MG in DEXTROSE 5%-WATER 250 ML IV SCH ×2 (09:29→22:58)
[2016-10-18] MEDS: BUMETANIDE 1 MG TABLET PO SCH ×2 (09:29→22:58)
[2016-10-18] MEDS: GLIMEPIRIDE 1 MG TABLET PO SCH ×2 (09:29→17:42)
[2016-10-18] MEDS: DOCUSATE SODIUM 100 MG CAPSULE PO SCH ×2 (09:39→17:38)
[2016-10-18] MEDS: NYSTATIN 500000 UNIT/5 ML UDCUP PO SCH (09:39)
[2016-10-18] MEDS: CITALOPRAM HYDROBROMIDE 20 MG TABLET PO SCH (11:30)
[2016-10-18] MEDS: FLUTICASONE NASAL SPRAY 50 MCG/SPRY 120 SPRAY/16 GM NASL SCH (11:30)
[2016-10-18] MEDS: CETIRIZINE 10 MG TABLET PO SCH (11:31)
[2016-10-18 12:27] LABS: PROTHROMBIN TIME 26.6 SEC (11.4-15.4)
--- NOTE | 2016-10-18 13:41 | PDOC PROGRESS REPORT ---
Subjective Progress Note for:: 10/18/16 Subjective:: reason for visit: f/u cellulitis hospital course: per other's notes - "KI DAVIS JR is a 60 year old male with past medical history of diabetes mellitus type 2, morbid obesity, lower extremity DVT, COPD, not on home oxygen,Schizophrenia, depression and lower extremity dermatitis. H with complaints of right lower extremity e presents to [facility] emergency department redness and generalized body aches. He denies any fevers or chills. He states the erythema of the right lower extremity began 24 hours ago and has significantly worsened. He ( initially) denies any trauma to the lower extremity. He has chronic venous stasis changes in both lower extremities as well as history of bilateral DVTs. He is presently on warfarin with subtherapeutic INR. He verbalizes no other complaints at the present time. He denies any shortness of breath or dyspnea. He denies any chest pain." he was admitted and started on broad spectrum abx with little improvement, blisters continue to form and leg is weeping more with clear yellow, sticky fluid saturating the bed and dripping onto the floor when in dependent position. His mother confronted me in the uriostegui to inform me that his right foot fell through the floor of his home about a month ago leaving a deep scrape that he refused to seek treatment of, choosing instead to treat with soaks and salves at home until finally presenting to the ED this admit. he continues to c/o pain in the leg as sharp, stabbing in the calf radiating up in to his hip and down into his foot, worse with palpation, constant. his leg continues to weep, saturating several bandages per day with full thickness blisters covering most of the leg. ROS: all systems reviewed, see above, remaining systems negative. Physical Exam Vital Signs: Temp Pulse Resp BP Pulse Ox 99.1 F 89 16 139/65 H 96 10/18/16 08:00 10/18/16 08:00 10/18/16 08:00 10/18/16 08:00 10/18/16 08:00 Intake & Output 10/17/16 10/18/16 10/19/16 06:59 06:59 06:59 Intake Total 2978 3550 Output Total 1000 3025 Balance 1978 525 Weight 186.5 kg 195.6 kg General appearance: PRESENT: no acute distress, morbidly obese, well-developed, well-nourished Head exam: PRESENT: atraumatic, normocephalic Eye exam: PRESENT: EOMI. ABSENT: scleral icterus Mouth exam: PRESENT: moist, tongue midline Teeth exam: PRESENT: poor dentation Neck exam: PRESENT: full ROM. ABSENT: tracheal deviation Respiratory exam: PRESENT: crackles, unlabored, ABSENT: accessory muscle use, wheezes or rhonchi Cardiovascular exam: PRESENT: RRR, tachycardia Pulses: PRESENT: normal radial pulses Vascular exam: PRESENT: pallor - bilat feet GI/Abdominal exam: PRESENT: normal bowel sounds - massive pannus, soft. ABSENT : tenderness Extremities exam: PRESENT: clubbing. ABSENT: calf tenderness Musculoskeletal exam: PRESENT: ambulatory, full ROM Neurological exam: PRESENT: alert, awake, oriented to person, oriented to place , oriented to time Psychiatric exam: PRESENT: appropriate affect, normal mood Skin exam: PRESENT: rash - Right lower leg is encompassed with coalescing blisters and sloughing of skin with hot to the touch bright red erythema from top of foot to just below the knee, weeping clear yellow thin sticky fluid, no foul odor. right leg and calf a full 2-3cms larger than left., warm Results Laboratory Results: 10/18/16 04:05 10/17/16 04:46 10/18/16 10/18/16 04:05 04:05 WBC 12.8 H RBC 3.82 L Hgb 10.5 L Hct 32.6 L MCV 85 MCH 27.6 MCHC 32.4 RDW 14.9 H Plt Count 305 Seg Neutrophils % 79.8 H Lymphocytes % 9.9 L Monocytes % 8.3 Eosinophils % 1.1 Basophils % 0.9 Absolute Neutrophils 10.2 H Absolute Lymphocytes 1.3 Absolute Monocytes 1.1 Absolute Eosinophils 0.1 Absolute Basophils 0.1 C-Reactive Protein 155.0 H Impressions: Chest X-Ray 10/09/16 06:32 IMPRESSION: Mild cardiomegaly without evidence of acute cardiopulmonary disease. Lower Extremity CT 10/15/16 00:00 IMPRESSION: There is superficial soft tissue stranding in the subcutaneous fat which could represent edematous or inflammatory changes. There appears to be some associated skin thickening. The appearance is consistent with a cellulitis. No discrete fluid collections are identified to suggest an abscess collection. Other findings as noted above Assessment & Plan - Diagnosis (1) Cellulitis of right lower extremity Is this a current diagnosis for this admission?: YesPlan: this is his primary and most pressing problem and not really getting better with abx, worrisome for staph scalded skin syndrome given its appearance. u/s leg negative for occlusive DVT. ct of the leg neg deep tissue wound or abscess. trend CRP. apply UNNA boot or equivalent and monitor for response (2) Hyponatremia Is this a current diagnosis for this admission?: Yes (4) COPD (chronic obstructive pulmonary disease) Qualifiers: Emphysema type: unspecified Is this a current diagnosis for this admission?: Yes (5) Diastolic CHF Qualifiers: Congestive heart failure chronicity: chronic Qualified Code(s): I50.32 - Chronic diastolic (congestive) heart failure Is this a current diagnosis for this admission?: Yes (6) History of pulmonary embolism Is this a current diagnosis for this admission?: Yes (8) AUTUMN (obstructive sleep apnea) Is this a current diagnosis for this admission?: Yes (9) Diabetes Qualifiers: Diabetes mellitus type: type 2 Diabetes mellitus complication status: with circulatory complication Diabetes mellitus complication detail: with peripheral angiopathy without gangrene Diabetes mellitus penitentiary insulin use: with terminal makeup operator use Qualified Code(s): E11.51 - Type 2 diabetes mellitus with diabetic peripheral angiopathy without gangrene; Z79.4 - bed bug exterminator (current) use of insulin Is this a current diagnosis for this admission?: Yes (10) Hypertension Qualifiers: Hypertension type: essential hypertension Qualified Code(s): I10 - Essential (primary) hypertension Is this a current diagnosis for this admission?: Yes - Time Time Spent with patient: 35 or more minutes
[2016-10-18] MEDS: WARFARIN SODIUM 7.5 MG TABLET PO SCH (22:58)
[2016-10-18] MEDS: MONTELUKAST SODIUM 10 MG TABLET PO SCH (22:58)
[2016-10-19] MEDS: CEFEPIME 2 GM/D5W RTU 2 GM/50 ML RTUPB IV SCH ×3 (01:00→23:52)
[2016-10-19] MEDS: IPRATROPIUM/ALBUTEROL 0.5-2.5 MG/3 ML AMPUL NEB SCH ×4 (02:16→20:29)
[2016-10-19 05:21] LABS: ABSOLUTE BASOPHILS # (AUTO) 0.1 10^3/uL (0.0-0.2); ABSOLUTE EOSINOPHILS # (AUTO) 0.2 10^3/uL (0.0-0.6); ABSOLUTE MONOCYTES (AUTO) 0.7 10^3/uL (0.1-1.4); ABSOLUTE NEUT (AUTO) 8.4 10^3/uL (1.7-8.2); BASOPHILS % (AUTO) 0.9 % (0-2); EOSINOPHILS % (AUTO) 1.9 % (0-6); HEMATOCRIT 31.9 % (37.9-51.0); HEMOGLOBIN 10.8 g/dL (13.5-17.0); HGB HCT DIFFERENCE 0.5; LYMPHOCYTES % (AUTO) 9.6 % (13-45); MEAN CORPUSCULAR HEMOGLOBIN 28.4 pg (27.0-33.4); MEAN CORPUSCULAR HGB CONC 33.7 g/dL (32.0-36.0); MEAN CORPUSCULAR VOLUME 84 fl (80-97); MONOCYTES % (AUTO) 7.1 % (3-13); RED BLOOD COUNT 3.79 10^6/uL (4.35-5.55); SEGMENTED NEUTROPHILS % (AUTO) 80.5 % (42-78); WHITE BLOOD COUNT 10.4 10^3/uL (4.0-10.5)
[2016-10-19] MEDS: BUMETANIDE 1 MG TABLET PO SCH ×2 (10:53→22:03)
[2016-10-19] MEDS: CARVEDILOL 12.5 MG TABLET PO SCH ×2 (10:54→22:03)
[2016-10-19] MEDS: NIFEDIPINE 30 MG TAB.ER.24 PO SCH ×2 (10:55→22:03)
[2016-10-19] MEDS: LACTOBACILLUS ACIDOPHILUS 250 MG TAB PO SCH ×2 (10:55→17:06)
[2016-10-19] MEDS: GLIMEPIRIDE 1 MG TABLET PO SCH ×2 (10:55→17:07)
[2016-10-19] MEDS: VANCOMYCIN HCL 1,250 MG in DEXTROSE 5%-WATER 250 ML IV SCH ×2 (10:55→22:03)
[2016-10-19] MEDS: DOCUSATE SODIUM 100 MG CAPSULE PO SCH ×2 (11:08→17:09)
[2016-10-19] MEDS: CETIRIZINE 10 MG TABLET PO SCH (11:20)
[2016-10-19] MEDS: FLUTICASONE NASAL SPRAY 50 MCG/SPRY 120 SPRAY/16 GM NASL SCH (11:20)
[2016-10-19] MEDS: CITALOPRAM HYDROBROMIDE 20 MG TABLET PO SCH (11:20)
--- NOTE | 2016-10-19 11:40 | PDOC PROGRESS REPORT ---
Subjective Progress Note for:: 10/19/16 Subjective:: reason for visit: f/u cellulitis hospital course: per other's notes - "KI DAVIS JR is a 60 year old male with past medical history of diabetes mellitus type 2, morbid obesity, lower extremity DVT, COPD, not on home oxygen,Schizophrenia, depression and lower extremity dermatitis. H with complaints of right lower extremity e presents to [facility] emergency department redness and generalized body aches. He denies any fevers or chills. He states the erythema of the right lower extremity began 24 hours ago and has significantly worsened. He ( initially) denies any trauma to the lower extremity. He has chronic venous stasis changes in both lower extremities as well as history of bilateral DVTs. He is presently on warfarin with subtherapeutic INR. He verbalizes no other complaints at the present time. He denies any shortness of breath or dyspnea. He denies any chest pain." he was admitted and started on broad spectrum abx with little improvement, blisters continue to form and leg is weeping more with clear yellow, sticky fluid saturating the bed and dripping onto the floor when in dependent position. His mother confronted me in the uriostegui to inform me that his right foot fell through the floor of his home about a month ago leaving a deep scrape that he refused to seek treatment of, choosing instead to treat with soaks and salves at home until finally presenting to the ED this admit. he continues to c/o pain in the leg as sharp, stabbing in the calf radiating up in to his hip and down into his foot, worse with palpation, constant. his leg continues to weep, saturating several bandages per day with full thickness blisters covering most of the leg. a zinc impregnated bandage (varicex) applied yesterday afternoon by the nurse but overnight the patient states "it fell off" and nursing reports he "ripped it off" during the night. He tells me the nurse took it off last night. Bottom line is he wouldn't tolerate the dressing and so now covered in silvadine and wrapped in layers with kerlex, coban and junior wrap and currently dry and intact. he spike a fever last night to 101.8 but says he "didn't feel it" and he denies SOA, cough with phlegm, chest pain, dysuria, new rash. ROS: all systems reviewed, see above, remaining systems negative. Physical Exam Vital Signs: Temp Pulse Resp BP Pulse Ox 98.4 F 92 22 H 145/70 H 94 10/19/16 08:44 10/19/16 08:44 10/19/16 08:44 10/19/16 08:44 10/19/16 08:44 Intake & Output 10/18/16 10/19/16 10/20/16 06:59 06:59 06:59 Intake Total 3550 2653 Output Total 3025 3600 Balance 525 -947 Weight 195.6 kg 196.5 kg General appearance: PRESENT: no acute distress, morbidly obese, well-developed, well-nourished Head exam: PRESENT: atraumatic, normocephalic Eye exam: PRESENT: EOMI. ABSENT: scleral icterus Mouth exam: PRESENT: moist, tongue midline Teeth exam: PRESENT: poor dentation Neck exam: PRESENT: full ROM. ABSENT: tracheal deviation Respiratory exam: PRESENT: crackles, unlabored, ABSENT: accessory muscle use, wheezes or rhonchi Cardiovascular exam: PRESENT: RRR, no tachycardia Pulses: PRESENT: normal radial pulses Vascular exam: PRESENT: pallor - bilat feet GI/Abdominal exam: PRESENT: normal bowel sounds - massive pannus, soft. ABSENT : tenderness Extremities exam: PRESENT: clubbing. ABSENT: calf tenderness Musculoskeletal exam: PRESENT: ambulatory, full ROM Neurological exam: PRESENT: alert, awake, oriented to person, oriented to place , oriented to time Psychiatric exam: PRESENT: appropriate affect, normal mood Skin exam: PRESENT: rash - Right lower leg covered with bandage as per HPI Results Laboratory Results: 10/19/16 04:09 10/17/16 04:46 10/19/16 10/19/16 04:09 04:09 WBC 10.4 RBC 3.79 L Hgb 10.8 L Hct 31.9 L MCV 84 MCH 28.4 MCHC 33.7 RDW 15.0 H Plt Count 292 Seg Neutrophils % 80.5 H Lymphocytes % 9.6 L Monocytes % 7.1 Eosinophils % 1.9 Basophils % 0.9 Absolute Neutrophils 8.4 H Absolute Lymphocytes 1.0 Absolute Monocytes 0.7 Absolute Eosinophils 0.2 Absolute Basophils 0.1 C-Reactive Protein 76.9 H Impressions: Chest X-Ray 10/09/16 06:32 IMPRESSION: Mild cardiomegaly without evidence of acute cardiopulmonary disease. Lower Extremity CT 10/15/16 00:00 IMPRESSION: There is superficial soft tissue stranding in the subcutaneous fat which could represent edematous or inflammatory changes. There appears to be some associated skin thickening. The appearance is consistent with a cellulitis. No discrete fluid collections are identified to suggest an abscess collection. Other findings as noted above Assessment & Plan - Diagnosis (1) Fever Qualifiers: Fever type: unspecified Qualified Code(s): R50.9 - Fever, unspecified Is this a current diagnosis for this admission?: YesPlan: unclear source, possible drug effect from the abx but at risk for whole host of other sources and in spite of IV cefepime/vanc. will repeat blood cultures and urine culture, send stool for cdiff and ck cxr and monitor for recurrence (2) Cellulitis of right lower extremity Is this a current diagnosis for this admission?: YesPlan: intolerant of UNNA boot, will continue current dressing and IV abx and re-eval skin late friday. continue to trend crp and wbc's (3) Hyponatremia Is this a current diagnosis for this admission?: Yes (5) COPD (chronic obstructive pulmonary disease) Qualifiers: Emphysema type: unspecified Is this a current diagnosis for this admission?: Yes (6) Diastolic CHF Qualifiers: Congestive heart failure chronicity: chronic Qualified Code(s): I50.32 - Chronic diastolic (congestive) heart failure Is this a current diagnosis for this admission?: Yes (7) History of pulmonary embolism Is this a current diagnosis for this admission?: Yes (9) AUTUMN (obstructive sleep apnea) Is this a current diagnosis for this admission?: Yes (10) Diabetes Qualifiers: Diabetes mellitus type: type 2 Diabetes mellitus complication status: with circulatory complication Diabetes mellitus complication detail: with peripheral angiopathy without gangrene Diabetes mellitus emt intermediate insulin use: with jail use Qualified Code(s): E11.51 - Type 2 diabetes mellitus with diabetic peripheral angiopathy without gangrene; Z79.4 - snf (current) use of insulin Is this a current diagnosis for this admission?: Yes (11) Hypertension Qualifiers: Hypertension type: essential hypertension Qualified Code(s): I10 - Essential (primary) hypertension Is this a current diagnosis for this admission?: Yes - Time Time Spent with patient: 15-24 minutes
--- NOTE | 2016-10-19 12:32 | RADIOLOGY REPORT (SQ) ---
EXAM DESCRIPTION: CHEST SINGLE VIEW COMPLETED DATE/TIME: 10/19/2016 12:04 pm REASON FOR STUDY: fever COMPARISON: 10/09/2016. NUMBER OF VIEWS: One view. TECHNIQUE: Single frontal radiographic view of the chest acquired. LIMITATIONS: Limiting body habitus and portable technique. FINDINGS: LUNGS AND PLEURA: Vascular congestion. No definite developing consolidation. Minimal sub segmental atelectasis is suspected in the left base. MEDIASTINUM AND HILAR STRUCTURES: No masses. Contour normal. HEART AND VASCULAR STRUCTURES: Cardiac enlargement. BONES: Poorly assessed. HARDWARE: None in the chest. OTHER: No other significant finding. IMPRESSION: Cardiomegaly and vascular congestion. TECHNICAL DOCUMENTATION: JOB ID: [id number] [employer]- All Rights Reserved
[2016-10-19] MEDS: INSULIN LISPRO 100 UNIT/ML 3 ML VIAL SUBCUT PRN (17:06)
[2016-10-19] MEDS: WARFARIN SODIUM 7.5 MG TABLET PO SCH (22:02)
[2016-10-19] MEDS: MONTELUKAST SODIUM 10 MG TABLET PO SCH (22:03)
[2016-10-20] MEDS: IPRATROPIUM/ALBUTEROL 0.5-2.5 MG/3 ML AMPUL NEB SCH ×4 (02:35→20:48)
[2016-10-20 05:56] LABS: ABSOLUTE BASOPHILS # (AUTO) 0.1 10^3/uL (0.0-0.2); ABSOLUTE EOSINOPHILS # (AUTO) 0.2 10^3/uL (0.0-0.6); ABSOLUTE LYMPHOCYTES (AUTO) 1.1 10^3/uL (0.5-4.7); ABSOLUTE MONOCYTES (AUTO) 0.8 10^3/uL (0.1-1.4); ABSOLUTE NEUT (AUTO) 10.5 10^3/uL (1.7-8.2); BASOPHILS % (AUTO) 1.1 % (0-2); EOSINOPHILS % (AUTO) 1.9 % (0-6); HEMATOCRIT 33.8 % (37.9-51.0); HEMOGLOBIN 10.7 g/dL (13.5-17.0); HGB HCT DIFFERENCE -1.7; LYMPHOCYTES % (AUTO) 8.4 % (13-45); MEAN CORPUSCULAR HEMOGLOBIN 27.4 pg (27.0-33.4); MEAN CORPUSCULAR HGB CONC 31.7 g/dL (32.0-36.0); MEAN CORPUSCULAR VOLUME 86 fl (80-97); MONOCYTES % (AUTO) 6.4 % (3-13); RED BLOOD COUNT 3.92 10^6/uL (4.35-5.55); RED CELL DISTRIBUTION WIDTH 14.8 % (11.5-14.0); SEGMENTED NEUTROPHILS % (AUTO) 82.2 % (42-78); WHITE BLOOD COUNT 12.7 10^3/uL (4.0-10.5)
[2016-10-20] MEDS: DOCUSATE SODIUM 100 MG CAPSULE PO SCH ×2 (09:57→18:12)
[2016-10-20] MEDS ORDERED: FUROSEMIDE INJ/PF 100 MG/10 ML SDV IV ONE (11:15)
[2016-10-20] MEDS ORDERED: METHYLPREDNISOLONE INJ 125 MG/2 ML SDV IV ONE (11:15)
[2016-10-20 11:27] LABS: PROTHROMBIN TIME 24.4 SEC (11.4-15.4)
[2016-10-20 11:28] LABS: ARTERIAL BLOOD BASE EXCESS 3.5 mmol/L; ARTERIAL BLOOD O2 SATURATION 99.4 % (94-98)
--- NOTE | 2016-10-20 11:28 | RADIOLOGY REPORT (SQ) ---
EXAM DESCRIPTION: CHEST SINGLE VIEW COMPLETED DATE/TIME: 10/20/2016 11:12 am REASON FOR STUDY: dyspnea COMPARISON: 10/19/2016. NUMBER OF VIEWS: One view. TECHNIQUE: Single frontal radiographic view of the chest acquired. LIMITATIONS: None. FINDINGS: LUNGS AND PLEURA: No opacities, masses or pneumothorax. No pleural effusion. MEDIASTINUM AND HILAR STRUCTURES: No masses or contour abnormality. HEART AND VASCULATURE: Cardiac enlargement. Vascular congestion. BONES: No acute findings. HARDWARE: Hardware in the cervical spine. OTHER: No other significant finding. IMPRESSION: CARDIAC ENLARGEMENT. VASCULAR CONGESTION. NO CHANGE. TECHNICAL DOCUMENTATION: JOB ID: [id number] [employer]- All Rights Reserved
--- NOTE | 2016-10-20 11:29 | PDOC PROGRESS REPORT ---
Subjective Progress Note for:: 10/20/16 Subjective:: reason for visit: f/u cellulitis hospital course: per other's notes - "KI DAVIS JR is a 60 year old male with past medical history of diabetes mellitus type 2, morbid obesity, lower extremity DVT, COPD, not on home oxygen,Schizophrenia, depression and lower extremity dermatitis. H with complaints of right lower extremity e presents to [facility] emergency department redness and generalized body aches. He denies any fevers or chills. He states the erythema of the right lower extremity began 24 hours ago and has significantly worsened. He ( initially) denies any trauma to the lower extremity. He has chronic venous stasis changes in both lower extremities as well as history of bilateral DVTs. He is presently on warfarin with subtherapeutic INR. He verbalizes no other complaints at the present time. He denies any shortness of breath or dyspnea. He denies any chest pain." he was admitted and started on broad spectrum abx with little improvement, blisters continue to form and leg is weeping more with clear yellow, sticky fluid saturating the bed and dripping onto the floor when in dependent position. His mother confronted me in the uriostegui to inform me that his right foot fell through the floor of his home about a month ago leaving a deep scrape that he refused to seek treatment of, choosing instead to treat with soaks and salves at home until finally presenting to the ED this admit. he continues to c/o pain in the leg as sharp, stabbing in the calf radiating up in to his hip and down into his foot, worse with palpation, constant. his leg continues to weep, saturating several bandages per day with full thickness blisters covering most of the leg. a zinc impregnated bandage (varicex) applied 10/18 by the nurse but overnight the patient states "it fell off" and nursing reports he "ripped it off" during the night. He tells me the nurse took it off last night. Bottom line is he wouldn't tolerate the dressing and so now covered in silvadine and wrapped in layers with kerlex, coban and jorge wrap which remain dry and intact. he spike a fever 10/19 to 101.8 but says he "didn't feel it", repeat culxs still pending; stat cxr just showed cardiomegaly and vasc congestion. Morning of 10/20 around 10:30 he suddenly became very SOA with increased WOB that he states is because his nurse made him sit upright in the bed, he breathes better when lying flat. he has refused his scheduled nebs and refuses to come off his nasal bipap or get out of the bed for reasons that are not clear to me at this time. Nevertheless, rapid response called and I arrived to find him struggling to breathe, diaphoretic, hyperemic and panicked with sats on high flow O2 of only 71%. He was moved to the ICU and stat CXR shows worsening vascular congestion with developing pulm edema. He is resting much more comfortably on full mask BiPAP with FiO2 of only 40%, ceja placed with immediate release of 400ml and he already feels much better. he denies chest pain or palpitations, n/v/d. ROS: all systems reviewed, see above, remaining systems negative. Physical Exam Vital Signs: Temp Pulse Resp BP Pulse Ox 99.6 F 89 26 H 144/64 H 98 10/20/16 07:58 10/20/16 07:58 10/20/16 10:27 10/20/16 07:58 10/20/16 10:27 Intake & Output 10/19/16 10/20/16 10/21/16 06:59 06:59 06:59 Intake Total 2653 2360 Output Total 3600 2460 Balance -947 -100 Weight 196.5 kg 193.6 kg General appearance: PRESENT: mod acute resp distress, morbidly obese, well- developed, well-nourished Head exam: PRESENT: atraumatic, normocephalic Eye exam: PRESENT: EOMI. ABSENT: scleral icterus Mouth exam: PRESENT: moist, tongue midline Teeth exam: PRESENT: poor dentation Neck exam: PRESENT: full ROM. ABSENT: tracheal deviation Respiratory exam: PRESENT: rales at bases, increased WOB with accessory muscle use but no wheezes or rhonchi Cardiovascular exam: PRESENT: RRR, tachycardia sinus on monitor into the 110-120 's Pulses: PRESENT: normal radial pulses Vascular exam: PRESENT: pallor - bilat feet, 1-2+ asymmetric edema of the legs R >L GI/Abdominal exam: PRESENT: normal bowel sounds - massive pannus, soft. ABSENT : tenderness Extremities exam: PRESENT: clubbing. ABSENT: calf tenderness Musculoskeletal exam: PRESENT: ambulatory, full ROM Neurological exam: PRESENT: alert, awake, oriented to person, oriented to place , oriented to time Psychiatric exam: PRESENT: appropriate affect, normal mood Skin exam: PRESENT: rash - Right lower leg covered with bandage and JORGE wrap Results Laboratory Results: 10/20/16 04:52 10/17/16 04:46 10/20/16 10/20/16 04:52 04:52 WBC 12.7 H RBC 3.92 L Hgb 10.7 L Hct 33.8 L MCV 86 MCH 27.4 MCHC 31.7 L RDW 14.8 H Plt Count 329 Seg Neutrophils % 82.2 H Lymphocytes % 8.4 L Monocytes % 6.4 Eosinophils % 1.9 Basophils % 1.1 Absolute Neutrophils 10.5 H Absolute Lymphocytes 1.1 Absolute Monocytes 0.8 Absolute Eosinophils 0.2 Absolute Basophils 0.1 C-Reactive Protein 53.7 H Impressions: Lower Extremity CT 10/15/16 00:00 IMPRESSION: There is superficial soft tissue stranding in the subcutaneous fat which could represent edematous or inflammatory changes. There appears to be some associated skin thickening. The appearance is consistent with a cellulitis. No discrete fluid collections are identified to suggest an abscess collection. Other findings as noted above Chest X-Ray 10/19/16 00:00 IMPRESSION: Cardiomegaly and vascular congestion. Assessment & Plan - Diagnosis (1) Diastolic CHF Qualifiers: Congestive heart failure chronicity: acute on chronic Qualified Code (s): I50.33 - Acute on chronic diastolic (congestive) heart failure Is this a current diagnosis for this admission?: YesPlan: give dose of lasix, ceja for strict I/O's as daily weights unreliable given his massive bulk. review of the old record shows last echo 11/2015 with grade 2 diastolic dysfxn, mod LVH, RVD, DORCAS likely accounting for at least part of his chronic lymphedema. continue bumex and intermittent dosing of lasix prn (2) Fever Qualifiers: Fever type: unspecified Qualified Code(s): R50.9 - Fever, unspecified Is this a current diagnosis for this admission?: YesPlan: unclear source, possible drug effect from the abx but at risk for whole host of other sources and in spite of IV cefepime/vanc. repeat blood cultures and urine culture pending, send stool for cdiff. possibly related to atelectasis from the pulmonary edema (3) Cellulitis of right lower extremity Is this a current diagnosis for this admission?: YesPlan: intolerant of UNNA boot, will continue current dressing and IV abx and I will change dressing Friday. trend crp and wbc's improved as a whole, continue to monitor (4) Hyponatremia Is this a current diagnosis for this admission?: YesPlan: repeat now (5) Anticoagulant long-term use Plan: ck INR and continue warfarin (6) COPD (chronic obstructive pulmonary disease) Qualifiers: Emphysema type: unspecified Is this a current diagnosis for this admission?: YesPlan: he is very tight, will give a single dose of solumedrol and monitor, don't want to give scheduled due to his chronic edema but may have to if his resp status remains tenuous. ck stat ABG. (7) History of pulmonary embolism Is this a current diagnosis for this admission?: Yes (9) AUTUMN (obstructive sleep apnea) Is this a current diagnosis for this admission?: YesPlan: continue nocturnal BiPAP (10) Diabetes Qualifiers: Diabetes mellitus type: type 2 Diabetes mellitus complication status: with circulatory complication Diabetes mellitus complication detail: with peripheral angiopathy without gangrene Diabetes mellitus emt intermediate insulin use: with assisted use Qualified Code(s): E11.51 - Type 2 diabetes mellitus with diabetic peripheral angiopathy without gangrene; Z79.4 - senior care (current) use of insulin Is this a current diagnosis for this admission?: Yes (11) Hypertension Qualifiers: Hypertension type: essential hypertension Qualified Code(s): I10 - Essential (primary) hypertension Is this a current diagnosis for this admission?: Yes - Time Time Spent with patient: 35 or more minutes Medications reviewed and adjusted accordingly: Yes
[2016-10-20] MEDS: BUMETANIDE 1 MG TABLET PO SCH ×2 (11:30→22:22)
[2016-10-20] MEDS: NIFEDIPINE 30 MG TAB.ER.24 PO SCH ×2 (11:31→22:19)
[2016-10-20] MEDS: LACTOBACILLUS ACIDOPHILUS 250 MG TAB PO SCH ×2 (11:31→18:12)
[2016-10-20] MEDS: CARVEDILOL 12.5 MG TABLET PO SCH ×2 (11:31→22:19)
[2016-10-20] MEDS: GLIMEPIRIDE 1 MG TABLET PO SCH ×2 (11:31→18:12)
[2016-10-20] MEDS: CITALOPRAM HYDROBROMIDE 20 MG TABLET PO SCH (11:31)
[2016-10-20] MEDS: VANCOMYCIN HCL 1,250 MG in DEXTROSE 5%-WATER 250 ML IV SCH ×2 (11:32→22:19)
[2016-10-20] MEDS: CETIRIZINE 10 MG TABLET PO SCH (11:32)
[2016-10-20 11:33] LABS: ALANINE AMINOTRANSFERASE 51 U/L (21-72); ALBUMIN 2.9 g/dL (3.5-5.0); ALKALINE PHOSPHATASE 141 U/L (38-126); ANION GAP 9 (5-19); ASPARTATE AMINO TRANSFERASE 41 U/L (17-59); BILIRUBIN,DIRECT 0.6 mg/dL (0.0-0.4); BILIRUBIN,TOTAL 0.8 mg/dL (0.2-1.3); BLOOD UREA NITROGEN 13 mg/dL (7-20); CALCIUM 8.5 mg/dL (8.4-10.2); CARBON DIOXIDE 25 mmol/L (22-30); CHLORIDE 103 mmol/L (98-107); CREATININE RESULT 0.92 mg/dL (0.52-1.25); GLUCOSE 160 mg/dL (75-110); POTASSIUM 4.4 mmol/L (3.6-5.0); SODIUM 137.2 mmol/L (137-145); TOTAL PROTEIN 7.8 g/dL (6.3-8.2)
[2016-10-20] MEDS: FLUTICASONE NASAL SPRAY 50 MCG/SPRY 120 SPRAY/16 GM NASL SCH (11:33)
[2016-10-20] MEDS: INSULIN LISPRO 100 UNIT/ML 3 ML VIAL SUBCUT PRN ×2 (11:42→18:10)
[2016-10-20] MEDS: CEFEPIME 2 GM/D5W RTU 2 GM/50 ML RTUPB IV SCH (13:35)
--- NOTE | 2016-10-20 14:06 | EKG REPORT ---
SEVERITY:- BORDERLINE ECG - SINUS RHYTHM LOW VOLTAGE IN FRONTAL LEADS NONSPECIFIC ST-T CHANGES- INFERIOR LEADS : Confirmed by: Richard Go MD 20-Oct-2016 14:05:44
[2016-10-20 15:11] LABS: ARTERIAL BLOOD BASE EXCESS 2.3 mmol/L; ARTERIAL BLOOD O2 SATURATION 99.1 % (94-98)
--- NOTE | 2016-10-20 18:08 | PDOC CONSULTATION ---
Consultation Consult Date: 10/20/16 Attending physician:: MICHELLE AVALOS Consult reason:: resp failure History of Present Illness Admission Date/PCP: 10/09/16 09:34 History of Present Illness: KI DAVIS JR is a 60 year old male with past medical history of diabetes mellitus type 2, morbid obesity, lower extremity DVT, COPD, not on home oxygen, Schizophrenia, depression and lower extremity dermatitis. H with complaints of right lower extremity e presents to [facility] emergency department. He has chronic venous stasis changes in both lower extremities as well as history of bilateral DVTs. He ki been on warfarin with subtherapeutic INR. He is currently in ICU on BIPAP lethergic but responsive. Past Medical History Cardiac Medical History: Reports: Congestive Heart Failure, Coronary Artery Disease, DVT, Hyperlipidema, Hypertension, Pulmonary Embolism Denies: Atrial Fibrillation, Myocardial Infarction, Peripheral Vascular Disease, Heart Murmur Pulmonary Medical History: Reports: Asthma, Chronic Obstructive Pulmonary Disease (COPD), Pneumonia, Sleep Apnea Denies: Bronchitis, Respiratory Failure, Tuberculosis EENT Medical History: Reports: None Neurological Medical History: Denies: Seizures Endocrine Medical History: Reports: Diabetes Mellitus Type 2 Denies: Hyperthyroidism, Hypothyroidism Malignancy Medical History: Denies: Breast Cancer, Cervical Cancer, Leukemia, Lung Cancer, Ovarian Cancer GI Medical History: Reports: Hiatal Hernia Denies: Crohn's Disease, Gastroesophageal Reflux Disease Musculoskeltal Medical History: Denies: Arthritis, Fibromyalgia Psychiatric Medical History: Reports: Depression, Post Traumatic Stress Disorder Denies: Bipolar Disorder Traumatic Medical History: Reports: None Hematology: Reports: None Denies: Anemia, Hemophilia, Sickle Cell Disease Infectious Medical History: Reports: None Denies: HIV Past Surgical History Past Surgical History: Reports: Cardiac Catheterization - 30% blockage, Herniorrhaphy, Orthopedic Surgery - PLATE SCREWS DISC AND BONE GRAFT: NECK, Tonsillectomy Denies: Appendectomy, Cholecystectomy, Colostomy, Coronary Artery Bypass Graft, Gastric Bypass Surgery, Pacemaker Social History Information Source: Parent, [facility] Records Lives with: Family Smoking Status: Unknown if Ever Smoked Last Time Smoked: 2004 Passive smoke exposure as: Both Frequency of Alcohol Use: Rare Hx Recreational Drug Use: No Hx Prescription Drug Abuse: No Have you had any respiratory illnesses as a child?: No Have you been exposed to any sick contacts recently?: No Have you had any recent respiratory illnesses?: No Have you travelled outside of [place] in the past 12 months?: No - Advance Directive Resuscitation Status: Full Code Family History Family History: Reviewed & Not Pertinent Parental Family History Reviewed: No Children Family History Reviewed: No Sibling(s) Family History Reviewed.: No Medication/Allergy Home Medications: Aspirin [Aspirin 81 mg Chewable Tablet] 81 mg PO DAILY 10/10/16 Brexpiprazole [Rexulti] 2 mg PO DAILY 10/10/16 Bumetanide [Bumex 1 mg Tablet] 1 mg PO BID 10/10/16 Carvedilol [Coreg 25 mg Tablet] 25 mg PO Q12 10/10/16 Diphenhydramine HCl [Banophen] 25 mg PO Q6HP PRN 10/10/16 Glimepiride [Amaryl] 2 mg PO BID 10/10/16 Gluc/Andi-MSM#1/Vit C/[place]/Bor [Jgsbgjc-Valkr-Wfu Complex Cplt] 2 tab PO BID 09/21 Insulin Aspart [Novolog Flexpen] 0 unit SUBCUT .SLD SCALE 10/10/16 Ketoconazole [Ketoconazole] 1 applic TOP BIDP PRN 10/10/16 Metformin HCl [Glucophage] 1,000 mg PO BIDACBS 10/10/16 Nifedipine [Nifedipine ER] 90 mg PO Q12 10/10/16 [place]-3 Acid Ethyl Esters [Lovaza 1 gm Capsule] 2 gm PO BID 10/10/16 Turmeric Root Extract [Turmeric] 1,000 mg PO BID 10/10/16 Vitamin B Complex [B Complex] 1 cap PO BID 10/10/16 Warfarin Sodium [Coumadin 7.5 mg Tablet] 7.5 mg PO SUTUTHSA@1000 10/10/16 Warfarin Sodium [Coumadin] 10 mg PO MOWEFR@1000 10/10/16 Allergies/Adverse Reactions: amlodipine Allergy (Verified 04/26/16 12:11) benazepril [Benazepril] Allergy (Verified 04/26/16 12:11) clonidine Allergy (Verified 04/26/16 12:11) codeine [Codeine] Allergy (Verified 04/26/16 12:11) haloperidol [From Haldol] Allergy (Verified 04/26/16 12:11) minoxidil Allergy (Verified 04/26/16 12:11) nalbuphine Allergy (Verified 04/26/16 12:11) oxycodone Allergy (Verified 04/26/16 12:11) Penicillins Allergy (Verified 04/26/16 12:11) perphenazine Allergy (Verified 04/26/16 12:11) propoxyphene Allergy (Verified 04/26/16 12:11) Sulfa (Sulfonamide Antibiotics) Allergy (Verified 04/26/16 12:11) topiramate Allergy (Verified 04/26/16 12:11) trifluoperazine [From Stelazine] Allergy (Verified 04/26/16 12:11) Review of Systems ROS unobtainable: Due to mental status Physical Exam Vital Signs: Temp Pulse Resp BP Pulse Ox 99.6 F 89 17 144/64 H 96 10/20/16 07:58 10/20/16 07:58 10/20/16 11:58 10/20/16 07:58 10/20/16 11:58 Intake & Output 10/19/16 10/20/16 10/21/16 06:59 06:59 06:59 Intake Total 2653 2360 Output Total 3600 2460 Balance -947 -100 Weight 196.5 kg 193.6 kg General appearance: PRESENT: disheveled, mild distress, morbidly obese Head exam: PRESENT: atraumatic, normocephalic Eye exam: PRESENT: conjunctiva pale, EOMI Mouth exam: PRESENT: dry mucosa, neck supple, tongue midline Neck exam: ABSENT: carotid bruit, JVD, lymphadenopathy, thyromegaly Respiratory exam: PRESENT: decreased breath sounds, prolonged expiratory phas, rhonchi, symmetrical Cardiovascular exam: PRESENT: RRR, +S1, +S2 Pulses: PRESENT: normal radial pulses GI/Abdominal exam: PRESENT: diminished bowel sounds, soft. ABSENT: distended, guarding, mass, organolmegaly, rebound, tenderness Rectal exam: PRESENT: deferred Gentrourinary exam: PRESENT: indwelling catheter Musculoskeletal exam: PRESENT: normal inspection Neurological exam: PRESENT: awake Psychiatric exam: PRESENT: anxious Focused psych exam: PRESENT: restlessness Skin exam: PRESENT: dry, warm Results Laboratory Results: 10/20/16 04:52 10/20/16 11:05 10/20/16 10/20/16 10/20/16 04:52 04:52 11:05 WBC 12.7 H RBC 3.92 L Hgb 10.7 L Hct 33.8 L MCV 86 MCH 27.4 MCHC 31.7 L RDW 14.8 H Plt Count 329 Seg Neutrophils % 82.2 H Lymphocytes % 8.4 L Monocytes % 6.4 Eosinophils % 1.9 Basophils % 1.1 Absolute Neutrophils 10.5 H Absolute Lymphocytes 1.1 Absolute Monocytes 0.8 Absolute Eosinophils 0.2 Absolute Basophils 0.1 Carbonic Acid HCO3/H2CO3 Ratio ABG pH ABG pCO2 ABG pO2 ABG HCO3 ABG O2 Saturation ABG Base Excess FiO2 Sodium 137.2 Potassium 4.4 Chloride 103 Carbon Dioxide 25 Anion Gap 9 BUN 13 Creatinine 0.92 Est GFR ( Amer) > 60 Est GFR (Non-Af Amer) > 60 Glucose 160 H Calcium 8.5 Total Bilirubin 0.8 AST 41 ALT 51 Alkaline Phosphatase 141 H C-Reactive Protein 53.7 H Total Protein 7.8 Albumin 2.9 L 10/20/16 11:12 WBC RBC Hgb Hct MCV MCH MCHC RDW Plt Count Seg Neutrophils % Lymphocytes % Monocytes % Eosinophils % Basophils % Absolute Neutrophils Absolute Lymphocytes Absolute Monocytes Absolute Eosinophils Absolute Basophils Carbonic Acid 1.39 H HCO3/H2CO3 Ratio 20:1 ABG pH 7.41 ABG pCO2 46.3 H ABG pO2 198.2 H ABG HCO3 28.7 H ABG O2 Saturation 99.4 H ABG Base Excess 3.5 FiO2 50% Sodium Potassium Chloride Carbon Dioxide Anion Gap BUN Creatinine Est GFR ( Amer) Est GFR (Non-Af Amer) Glucose Calcium Total Bilirubin AST ALT Alkaline Phosphatase C-Reactive Protein Total Protein Albumin 10/20/16 11:05 Troponin I < 0.012 Impressions: Lower Extremity CT 10/15/16 00:00 IMPRESSION: There is superficial soft tissue stranding in the subcutaneous fat which could represent edematous or inflammatory changes. There appears to be some associated skin thickening. The appearance is consistent with a cellulitis. No discrete fluid collections are identified to suggest an abscess collection. Other findings as noted above Chest X-Ray 10/20/16 10:26 IMPRESSION: CARDIAC ENLARGEMENT. VASCULAR CONGESTION. NO CHANGE. Assessment & Plan - Diagnosis (1) Obesity hypoventilation syndrome Is this a current diagnosis for this admission?: YesPlan: NIPPV chronic vs tracheostomy (2) Diastolic CHF Qualifiers: Congestive heart failure chronicity: acute on chronic Qualified Code (s): I50.33 - Acute on chronic diastolic (congestive) heart failure Is this a current diagnosis for this admission?: Yes (3) History of pulmonary embolism Is this a current diagnosis for this admission?: Yes (4) Morbid obesity with BMI of 50.0-59.9, adult Is this a current diagnosis for this admission?: Yes (5) AUTUMN (obstructive sleep apnea) Is this a current diagnosis for this admission?: Yes - Time Critical Time spent with patient: 35 or more minutes - spoke with PCP,RN and family
[2016-10-20] MEDS: WARFARIN SODIUM 7.5 MG TABLET PO SCH (22:19)
[2016-10-20] MEDS: MONTELUKAST SODIUM 10 MG TABLET PO SCH (22:19)
[2016-10-21] MEDS: CEFEPIME 2 GM/D5W RTU 2 GM/50 ML RTUPB IV SCH (00:38)
[2016-10-21] MEDS: IPRATROPIUM/ALBUTEROL 0.5-2.5 MG/3 ML AMPUL NEB SCH ×4 (02:17→20:25)
[2016-10-21 04:34] LABS: ABSOLUTE BASOPHILS # (AUTO) 0.1 10^3/uL (0.0-0.2); ABSOLUTE MONOCYTES (AUTO) 0.6 10^3/uL (0.1-1.4); ABSOLUTE NEUT (AUTO) 9.9 10^3/uL (1.7-8.2); BASOPHILS % (AUTO) 0.5 % (0-2); HEMATOCRIT 32.2 % (37.9-51.0); HEMOGLOBIN 10.4 g/dL (13.5-17.0); LYMPHOCYTES % (AUTO) 8.5 % (13-45); MEAN CORPUSCULAR HEMOGLOBIN 27.7 pg (27.0-33.4); MEAN CORPUSCULAR HGB CONC 32.3 g/dL (32.0-36.0); MEAN CORPUSCULAR VOLUME 86 fl (80-97); MONOCYTES % (AUTO) 5.3 % (3-13); RED BLOOD COUNT 3.76 10^6/uL (4.35-5.55); RED CELL DISTRIBUTION WIDTH 14.9 % (11.5-14.0); SEGMENTED NEUTROPHILS % (AUTO) 85.7 % (42-78); WHITE BLOOD COUNT 11.5 10^3/uL (4.0-10.5)
[2016-10-21 04:40] LABS: ALANINE AMINOTRANSFERASE 45 U/L (21-72); ALBUMIN 2.9 g/dL (3.5-5.0); ALKALINE PHOSPHATASE 130 U/L (38-126); ANION GAP 8 (5-19); ASPARTATE AMINO TRANSFERASE 18 U/L (17-59); BILIRUBIN,DIRECT 0.4 mg/dL (0.0-0.4); BILIRUBIN,TOTAL 0.5 mg/dL (0.2-1.3); BLOOD UREA NITROGEN 20 mg/dL (7-20); C-REACTIVE PROTEIN 55.8 mg/L (<10.0); CALCIUM 8.5 mg/dL (8.4-10.2); CARBON DIOXIDE 29 mmol/L (22-30); CHLORIDE 103 mmol/L (98-107); CREATININE RESULT 0.89 mg/dL (0.52-1.25); GLUCOSE 137 mg/dL (75-110); MAGNESIUM 2.2 mg/dL (1.6-2.3); POTASSIUM 4.5 mmol/L (3.6-5.0); SODIUM 139.6 mmol/L (137-145); TOTAL PROTEIN 7.9 g/dL (6.3-8.2)
[2016-10-21 04:56] LABS: ARTERIAL BLOOD BASE EXCESS 3.9 mmol/L; ARTERIAL BLOOD O2 SATURATION 97.9 % (94-98)
--- NOTE | 2016-10-21 08:00 | RADIOLOGY REPORT (SQ) ---
EXAM DESCRIPTION: CHEST SINGLE VIEW COMPLETED DATE/TIME: 10/21/2016 7:02 am REASON FOR STUDY: resp fail COMPARISON: Chest x-ray 10/20/2016. EXAM PARAMETERS: NUMBER OF VIEWS: One view. TECHNIQUE: Single frontal radiographic view of the chest acquired. RADIATION DOSE: NA LIMITATIONS: Patient positioning. FINDINGS: LUNGS AND PLEURA: The costophrenic angles are partially excluded from the [id number]-[id number]-hkud. The patient's chin is partially obscuring the lung apices. There are bibasilar airspace opacities. No large pneumothorax. MEDIASTINUM AND HILAR STRUCTURES: Stable. HEART AND VASCULAR STRUCTURES: The heart is enlarged. There is vascular congestion. BONES: No acute findings. HARDWARE: Orthopedic hardware at the lower cervical spine. IMPRESSION: Cardiomegaly and vascular congestion. Bibasilar airspace opacities, may represent a com bination of pleural effusions and atelectasis or pneumonia. Followup chest x-ray with PA and lateral views recommended when patient condition's allows. RECOMMENDATIONS: Follow-up chest x-ray with PA and lateral views. TECHNICAL DOCUMENTATION: JOB ID: [id number]
[2016-10-21] MEDS ORDERED: SILVER SULFADIAZINE 1% CREAM 400 GM TP SCH (09:00)
[2016-10-21] MEDS ORDERED: PANTOT AC/MIN OIL/PET HY-PHL OINT 50 GM TOP SCH (09:00)
[2016-10-21] MEDS: GLIMEPIRIDE 1 MG TABLET PO SCH ×2 (10:43→17:36)
[2016-10-21] MEDS: NIFEDIPINE 30 MG TAB.ER.24 PO SCH ×2 (10:43→22:06)
[2016-10-21] MEDS: BUMETANIDE 1 MG TABLET PO SCH ×2 (10:47→22:07)
[2016-10-21] MEDS: CARVEDILOL 12.5 MG TABLET PO SCH ×2 (10:47→22:06)
[2016-10-21] MEDS: LACTOBACILLUS ACIDOPHILUS 250 MG TAB PO SCH ×2 (10:47→17:36)
[2016-10-21] MEDS: VANCOMYCIN HCL 1,250 MG in DEXTROSE 5%-WATER 250 ML IV SCH ×2 (10:48→22:09)
[2016-10-21] MEDS: DOCUSATE SODIUM 100 MG CAPSULE PO SCH ×2 (10:49→17:35)
[2016-10-21] MEDS: CITALOPRAM HYDROBROMIDE 20 MG TABLET PO SCH (14:02)
[2016-10-21] MEDS: CETIRIZINE 10 MG TABLET PO SCH (14:03)
[2016-10-21] MEDS: COLLAGENASE CLOSTRIDIUM HIST. OINT 30 GM TOP SCH (14:03)
[2016-10-21] MEDS: FLUTICASONE NASAL SPRAY 50 MCG/SPRY 120 SPRAY/16 GM NASL SCH (14:04)
--- NOTE | 2016-10-21 14:27 | PDOC PROGRESS REPORT ---
Subjective Progress Note for:: 10/21/16 Subjective:: reason for visit: f/u cellulitis, acute on chronic hypoxic and hypercapneic resp failure hospital course: per other's notes - "KI DAVIS JR is a 60 year old male with past medical history of diabetes mellitus type 2, morbid obesity, lower extremity DVT, COPD, not on home oxygen,Schizophrenia, depression and lower extremity dermatitis. H with complaints of right lower extremity e presents to [facility] emergency department redness and generalized body aches. He denies any fevers or chills. He states the erythema of the right lower extremity began 24 hours ago and has significantly worsened. He ( initially) denies any trauma to the lower extremity. He has chronic venous stasis changes in both lower extremities as well as history of bilateral DVTs. He is presently on warfarin with subtherapeutic INR. He verbalizes no other complaints at the present time. He denies any shortness of breath or dyspnea. He denies any chest pain." he was admitted and started on broad spectrum abx with little improvement, blisters continue to form and leg is weeping more with clear yellow, sticky fluid saturating the bed and dripping onto the floor when in dependent position. His mother confronted me in the uriostegui to inform me that his right foot fell through the floor of his home about a month ago leaving a deep scrape that he refused to seek treatment of, choosing instead to treat with soaks and salves at home until finally presenting to the ED this admit. he c/o pain in the leg as sharp, stabbing in the calf radiating up in to his hip and down into his foot, worse with palpation, constant. his leg continues to weep, saturating several bandages per day with full thickness blisters covering most of the leg. A zinc impregnated bandage (varicex) applied 10/18 by the nurse but overnight the patient states "it fell off" and nursing reports he "ripped it off" during the night. He tells me the nurse took it off last night. Bottom line is he wouldn't tolerate the dressing and so now covered in Santyl and wrapped in layers with tegasorb, coban and junior wrap which remain dry and intact. he spiked a fever 10/19 to 101.8 but says he "didn't feel it", repeat culxs of blood and urine show no growth; stat cxr just showed cardiomegaly and vasc congestion. Morning of 10/20 around 10:30 he suddenly became very SOA with increased WOB that he states is because his nurse made him sit upright in the bed, he "breathes better when lying flat". he has refused his scheduled nebs at times and refused to come off his nasal bipap or get out of the bed for reasons that are not clear to me. Nevertheless, rapid response called and I arrived to find him struggling to breathe, diaphoretic, hyperemic and panicked with sats on high flow O2 of only 71%. He was moved to the ICU and stat CXR showed worsening vascular congestion with developing pulm edema. he received IV lasix and diuresed about a liter of fluid. He is resting much more comfortably on full mask BiPAP with FiO2 of only 40%, ceja placed for strict I/O's. Dr Larson consulted and is recommending trach and home vent/NIPPV for his OHVS and AUTUMN. he denies chest pain or palpitations, n/v/d. states his leg itches and he wants the bandage off. I removed and debrided loose, necrotic epidermis revealing some underlying granuloma tissue but some of the tissue debrides too deeply and oozes blood. will need surgical consult for further, more controlled debridement. ROS: all systems reviewed, see above, remaining systems negative. Physical Exam Vital Signs: Temp Pulse Resp BP Pulse Ox 98.8 F 65 21 H 104/57 L 97 10/21/16 12:00 10/21/16 12:00 10/21/16 12:00 10/21/16 12:00 10/21/16 12:00 Intake & Output 10/20/16 10/21/16 10/22/16 06:59 06:59 06:59 Intake Total 2360 1715 420 Output Total 2460 6145 635 Balance -100 -1110 -215 Weight 193.6 kg 187.8 kg General appearance: PRESENT: no acute resp distress, morbidly obese, well- developed, well-nourished Head exam: PRESENT: atraumatic, normocephalic Eye exam: PRESENT: EOMI. ABSENT: scleral icterus Mouth exam: PRESENT: moist, tongue midline Teeth exam: PRESENT: poor dentation Neck exam: PRESENT: full ROM. ABSENT: tracheal deviation Respiratory exam: PRESENT: bipap mask in place, FiO2 35%, rales at bases, increased WOB with accessory muscle use but no wheezes or rhonchi Cardiovascular exam: PRESENT: RRR, no tachycardia sinus on monitor Pulses: PRESENT: normal radial pulses Vascular exam: PRESENT: pallor - bilat feet, 1-2+ asymmetric edema of the legs R >L GI/Abdominal exam: PRESENT: normal bowel sounds - massive pannus, soft. ABSENT : tenderness Extremities exam: PRESENT: clubbing. ABSENT: calf tenderness Musculoskeletal exam: PRESENT: ambulatory, full ROM Neurological exam: PRESENT: alert, awake, oriented to person, oriented to place , oriented to time Psychiatric exam: PRESENT: appropriate affect, normal mood Skin exam: PRESENT: rash - Right lower leg uncovered and epidermal layer removed with bandage exposing wet, heaped up yellow tissue some of which is easily removed with wet gauze revealing granulation tissue underneath, other more necrotic areas penetrate a bit deeper resulting in oozing of blood when removed prompting me to abort my attempts. Results Laboratory Results: 10/21/16 03:50 10/21/16 03:50 10/20/16 10/21/16 10/21/16 14:53 03:50 03:50 WBC 11.5 H RBC 3.76 L Hgb 10.4 L Hct 32.2 L MCV 86 MCH 27.7 MCHC 32.3 RDW 14.9 H Plt Count 347 Seg Neutrophils % 85.7 H Lymphocytes % 8.5 L Monocytes % 5.3 Eosinophils % 0.0 Basophils % 0.5 Absolute Neutrophils 9.9 H Absolute Lymphocytes 1.0 Absolute Monocytes 0.6 Absolute Eosinophils 0.0 Absolute Basophils 0.1 Carbonic Acid 1.45 H HCO3/H2CO3 Ratio 19:1 ABG pH 7.38 ABG pCO2 48.1 H ABG pO2 167.1 H ABG HCO3 28.0 H ABG O2 Saturation 99.1 H ABG Base Excess 2.3 FiO2 60% Sodium 139.6 Potassium 4.5 Chloride 103 Carbon Dioxide 29 Anion Gap 8 BUN 20 Creatinine 0.89 Est GFR ( Amer) > 60 Est GFR (Non-Af Amer) > 60 Glucose 137 H Calcium 8.5 Magnesium 2.2 Total Bilirubin 0.5 AST 18 ALT 45 Alkaline Phosphatase 130 H C-Reactive Protein 55.8 H Total Protein 7.9 Albumin 2.9 L 10/21/16 04:50 WBC RBC Hgb Hct MCV MCH MCHC RDW Plt Count Seg Neutrophils % Lymphocytes % Monocytes % Eosinophils % Basophils % Absolute Neutrophils Absolute Lymphocytes Absolute Monocytes Absolute Eosinophils Absolute Basophils Carbonic Acid 1.48 H HCO3/H2CO3 Ratio 20:1 ABG pH 7.40 ABG pCO2 49.2 H ABG pO2 108.5 H ABG HCO3 29.6 H ABG O2 Saturation 97.9 ABG Base Excess 3.9 FiO2 35% Sodium Potassium Chloride Carbon Dioxide Anion Gap BUN Creatinine Est GFR ( Amer) Est GFR (Non-Af Amer) Glucose Calcium Magnesium Total Bilirubin AST ALT Alkaline Phosphatase C-Reactive Protein Total Protein Albumin 10/19/16 12:40 Clean Catch Midstream Urine Culture - Final NO GROWTH 2 DAYS 10/20/16 10/20/16 10/20/16 11:05 16:48 22:52 Troponin I < 0.012 < 0.012 < 0.012 Impressions: Chest X-Ray 10/21/16 06:00 IMPRESSION: Cardiomegaly and vascular congestion. Bibasilar airspace opacities , may represent a combination of pleural effusions and atelectasis or pneumonia. Followup chest x-ray with PA and lateral views recommended when patient condition's allows. Assessment & Plan - Diagnosis (1) Obesity hypoventilation syndrome Is this a current diagnosis for this admission?: YesPlan: NIPPV under the direction of Dr Larson who believes he needs to stay in ICU until further notice. (2) Diastolic CHF Qualifiers: Congestive heart failure chronicity: acute on chronic Qualified Code (s): I50.33 - Acute on chronic diastolic (congestive) heart failure Is this a current diagnosis for this admission?: YesPlan: only midly better but not back to baseline; schedule lasix, continue ceja for strict I/O's as daily weights unreliable given his massive bulk. review of the old record shows last echo 11/2015 with grade 2 diastolic dysfxn, mod LVH, RVD, DORCAS likely accounting for at least part of his chronic lymphedema. (3) AUTUMN (obstructive sleep apnea) Is this a current diagnosis for this admission?: YesPlan: continue nocturnal BiPAP (4) Cellulitis of right lower extremity Is this a current diagnosis for this admission?: YesPlan: consult surgery for more effective debridement than I can provide; cover with Santyl and wrap with pressure bandage to help control lymphedema. (5) Anticoagulant long-term use Plan: continue warfarin and monitor INR daily; no evidence for recurrent thrombosis on u/s legs (6) COPD (chronic obstructive pulmonary disease) Qualifiers: Emphysema type: unspecified Is this a current diagnosis for this admission?: YesPlan: improved; given a single dose of solumedrol and improved but not back to baseline, don't want to give scheduled due to his chronic edema but may have to if his resp status remains tenuous. ABG shows compensated respiratory acidosis. (7) History of pulmonary embolism Is this a current diagnosis for this admission?: Yes (8) Morbid obesity with BMI of 50.0-59.9, adult Is this a current diagnosis for this admission?: Yes (9) Diabetes Qualifiers: Diabetes mellitus type: type 2 Diabetes mellitus complication status: with circulatory complication Diabetes mellitus complication detail: with peripheral angiopathy without gangrene Diabetes mellitus retirement insulin use: with retirement use Qualified Code(s): E11.51 - Type 2 diabetes mellitus with diabetic peripheral angiopathy without gangrene; Z79.4 - buttermaker continuous churn (current) use of insulin Is this a current diagnosis for this admission?: Yes (10) Hypertension Qualifiers: Hypertension type: essential hypertension Qualified Code(s): I10 - Essential (primary) hypertension Is this a current diagnosis for this admission?: Yes (11) Fever Qualifiers: Fever type: unspecified Qualified Code(s): R50.9 - Fever, unspecified Is this a current diagnosis for this admission?: Yes (12) Hyponatremia Is this a current diagnosis for this admission?: Yes - Time Time Spent with patient: 35 or more minutes Medications reviewed and adjusted accordingly: Yes
[2016-10-21] MEDS ORDERED: FUROSEMIDE INJ/PF 40 MG/4 ML SDV IV ONE (15:00)
[2016-10-21] MEDS ORDERED: FUROSEMIDE INJ/PF 40 MG/4 ML SDV IV SCH (22:00)
[2016-10-21] MEDS: WARFARIN SODIUM 7.5 MG TABLET PO SCH (22:06)
[2016-10-21] MEDS: MONTELUKAST SODIUM 10 MG TABLET PO SCH (22:07)
--- NOTE | 2016-10-21 22:38 | CONSULTATION REPORT E ---
Consultation Report NAME: KI DAVIS : 1955 AGE: 60Y DATE: 10/21/2016 607 A TO: RAFAEL HUIZAR M.D. FROM: JHONY HESTER M.D. Requesting Physician REFERRING PHYSICIAN: The patient is seen at the request of Dr. Larson. CHIEF COMPLAINT: Placement of tracheostomy tube. REPORT OF CONSULTATION: The patient is a 60-year-old white male, with history of morbid obesity, COPD, recent DVT on chronic Coumadin anticoagulation, schizophrenia, depression, who was admitted to the hospital with respiratory distress. He was brought from the floor to the intensive care unit over the weekend where he was found to have worsening pulmonary function. He is being supported by BiPAP. The patient's pulmonary function has improved with ventilatory support and diuretics and antimicrobial therapy. Past medical/surgical history, review of systems, and social history can all be found in his history and physical document as well as an extensive list of allergies. PHYSICAL EXAMINATION: GENERAL: The patient was examined in the intensive care unit on the morning of 10/21/2016. He was in no acute distress lying completely supine with a BiPAP in place. VITAL SIGNS: Stable. The patient was afebrile. NEUROLOGIC: The patient followed commands and was communicative. LUNGS: The pulmonary exam revealed rhonchi bilaterally. ABDOMEN: The abdomen is soft. No peritoneal signs. No rigidity. EXTREMITIES: The lower extremities are significant for chronic edema. DIAGNOSTIC DATA: Laboratory profile revealed white blood cell count of 11,000, hemoglobin of 10, electrolytes within normal limits. A chest x-ray portable upright revealed bilateral airspace disease with atelectasis versus pneumonia with some perihilar fullness. IMPRESSION: 1. Chronic obesity related hypoventilation syndrome with respiratory distress, clinically improved with diuretic therapy and BiPAP support. 2. Morbid obesity. 3. Schizophrenia. 4. History of DVT on Coumadin anticoagulation. DISCUSSION: At this point, the patient is not in need of endotracheal intubation. He does have multiple comorbidities, chronic, which put him at risk for further chronic pulmonary deterioration. Nonetheless, at this moment, I do not feel compelled to recommend interval tracheostomy.;Furthermore, I believe a discussion needs to be held with patient , and his support system, highlighting the demands and expectations involved in tracheostomy management. We will be available to follow the patient with you on an as needed basis. DICTATING PHYSICIAN: RAFAEL HUIZAR M.D. [id number] PHY#: [id number] ID: [id number] JOB#: [id number] ACCT: [id number] cc:RAFAEL HUIZAR M.D. > MTDD
[2016-10-22] MEDS: IPRATROPIUM/ALBUTEROL 0.5-2.5 MG/3 ML AMPUL NEB SCH ×2 (02:17→08:18)
[2016-10-22 04:38] LABS: ABSOLUTE BASOPHILS # (AUTO) 0.2 10^3/uL (0.0-0.2); ABSOLUTE EOSINOPHILS # (AUTO) 0.2 10^3/uL (0.0-0.6); ABSOLUTE LYMPHOCYTES (AUTO) 1.7 10^3/uL (0.5-4.7); ABSOLUTE MONOCYTES (AUTO) 1.2 10^3/uL (0.1-1.4); ABSOLUTE NEUT (AUTO) 8.3 10^3/uL (1.7-8.2); BASOPHILS % (AUTO) 1.5 % (0-2); EOSINOPHILS % (AUTO) 1.6 % (0-6); HEMATOCRIT 34.5 % (37.9-51.0); HEMOGLOBIN 11.4 g/dL (13.5-17.0); HGB HCT DIFFERENCE -0.3; LYMPHOCYTES % (AUTO) 14.8 % (13-45); MEAN CORPUSCULAR HEMOGLOBIN 27.9 pg (27.0-33.4); MEAN CORPUSCULAR VOLUME 85 fl (80-97); MONOCYTES % (AUTO) 10.5 % (3-13); RED BLOOD COUNT 4.08 10^6/uL (4.35-5.55); SEGMENTED NEUTROPHILS % (AUTO) 71.6 % (42-78); WHITE BLOOD COUNT 11.7 10^3/uL (4.0-10.5)
[2016-10-22 04:53] LABS: ALANINE AMINOTRANSFERASE 40 U/L (21-72); ALKALINE PHOSPHATASE 127 U/L (38-126); ANION GAP 10 (5-19); ASPARTATE AMINO TRANSFERASE 23 U/L (17-59); BILIRUBIN,DIRECT 0.4 mg/dL (0.0-0.4); BILIRUBIN,TOTAL 0.6 mg/dL (0.2-1.3); BLOOD UREA NITROGEN 19 mg/dL (7-20); CALCIUM 8.3 mg/dL (8.4-10.2); CARBON DIOXIDE 29 mmol/L (22-30); CHLORIDE 99 mmol/L (98-107); CREATININE RESULT 0.88 mg/dL (0.52-1.25); GLUCOSE 73 mg/dL (75-110); SODIUM 138.2 mmol/L (137-145); TOTAL PROTEIN 7.8 g/dL (6.3-8.2)
[2016-10-22 05:08] LABS: ARTERIAL BLOOD BASE EXCESS 10.6 mmol/L; ARTERIAL BLOOD O2 SATURATION 97.9 % (94-98)
--- NOTE | 2016-10-22 07:23 | RADIOLOGY REPORT (SQ) ---
EXAM DESCRIPTION: CHEST SINGLE VIEW COMPLETED DATE/TIME: 10/22/2016 7:02 am REASON FOR STUDY: resp failure COMPARISON: 10/21/2016. NUMBER OF VIEWS: One view. TECHNIQUE: Single frontal radiographic view of the chest acquired. LIMITATIONS: None. FINDINGS: LUNGS AND PLEURA: No opacities, masses or pneumothorax. No pleural effusion. MEDIASTINUM AND HILAR STRUCTURES: No masses or contour abnormality. HEART AND VASCULATURE: Cardiac enlargement. Vascular congestion. BONES: No acute findings. HARDWARE: Hardware in the cervical spine. OTHER: No other significant finding. IMPRESSION: NO CHANGE IN APPEARANCE OF THE CHEST. TECHNICAL DOCUMENTATION: JOB ID: [id number] [employer]- All Rights Reserved
[2016-10-22 07:40] LABS: PROTHROMBIN TIME 24.8 SEC (11.4-15.4)
[2016-10-22] MEDS ORDERED: BUMETANIDE INJ/PF 1 MG/4 ML SDV IV SCH (08:45)
[2016-10-22] MEDS: LACTOBACILLUS ACIDOPHILUS 250 MG TAB PO SCH ×2 (09:32→17:54)
[2016-10-22] MEDS: QUETIAPINE FUMARATE 25 MG TABLET PO SCH ×2 (09:32→17:55)
[2016-10-22] MEDS: GLIMEPIRIDE 1 MG TABLET PO SCH ×2 (09:32→17:56)
[2016-10-22] MEDS: NIFEDIPINE 30 MG TAB.ER.24 PO SCH ×2 (09:33→21:33)
[2016-10-22] MEDS: CARVEDILOL 12.5 MG TABLET PO SCH ×2 (09:33→23:00)
[2016-10-22] MEDS: DOCUSATE SODIUM 100 MG CAPSULE PO SCH ×2 (09:34→17:56)
[2016-10-22] MEDS: BUMETANIDE INJ/PF 1 MG/4 ML SDV IV SCH ×2 (09:34→21:33)
--- NOTE | 2016-10-22 10:05 | PDOC PROGRESS REPORT ---
Subjective Progress Note for:: 10/22/16 Subjective:: Is a follow-up visit for acute on chronic respiratory failure. The patient was seen at the bedside and states that his breathing is better with the mask. He states that he does not need it anymore. He tells me that he had 44 albuterol treatments over the course of 11 days prior to coming in. That this was absolutely too much albuterol and that this is what caused his breathing problem. He tells me that in his medical opinion he has had and that this has caused albuterol toxicity. Using any treatment whatsoever. I have tried to change out the medication to Atrovent or Xopenex alone and the patient has refused. Also tells me that his wound does not need to be dressed. He states that he does not need a trach and that he can breathe just fine. Note that he is telling me all of these things with bilevel Pap currently on. Noted that he has schizophrenia and that the patient is supposed to be taking antipsychotics. He states that he has been doing this as an outpatient. His nurse was gracious and telephoned his mother who states that he has not taken this medication in weeks. Denies any chest discomfort or worsening shortness of breath. Physical Exam Vital Signs: Temp Pulse Resp BP Pulse Ox 98.9 F 59 L 38 H 144/92 H 99 10/22/16 05:44 10/22/16 09:00 10/22/16 08:19 10/22/16 08:00 10/22/16 08:19 Intake & Output 10/21/16 10/22/16 10/23/16 06:59 06:59 06:59 Intake Total 1711 1718 Output Total 0652 0866 Balance -1110 -3039 Weight 187.8 kg 185.6 kg General: This is a well-developed, well-nourished morbidly obese white male resting in bed currently on bilevel Pap. Heart: Regular rate and rhythm no murmurs rubs or gallops. Lungs: Clear to auscultation anterior perspective. The patient has bilevel Pap in place. Abdomen: Obese, soft, nondistended. Extremities: No clubbing, cyanosis, or edema. 1+ peripheral pulses. Neuro: Awake, alert, speech is fluent. Cranial nerves are grossly intact. Skin: The patient has small ecchymoses on the right lower quadrant of the abdomen. The patient also has a right lower extremity wound. He has exfoliating dry skin on the back of his calf. On his [place] he has dermis which is now dry and composed of some sloughing skin. There is also skin that has not been unroofed. Results Laboratory Results: 10/22/16 04:13 10/22/16 04:13 10/22/16 10/22/16 10/22/16 04:13 04:13 04:50 WBC 11.7 H RBC 4.08 L Hgb 11.4 L Hct 34.5 L MCV 85 MCH 27.9 MCHC 33.0 RDW 15.0 H Plt Count 345 Seg Neutrophils % 71.6 Lymphocytes % 14.8 Monocytes % 10.5 Eosinophils % 1.6 Basophils % 1.5 Absolute Neutrophils 8.3 H Absolute Lymphocytes 1.7 Absolute Monocytes 1.2 Absolute Eosinophils 0.2 Absolute Basophils 0.2 Carbonic Acid 1.47 H HCO3/H2CO3 Ratio 24:1 ABG pH 7.48 H ABG pCO2 48.7 H ABG pO2 100.6 H ABG HCO3 35.5 H ABG O2 Saturation 97.9 ABG Base Excess 10.6 FiO2 30% Sodium 138.2 Potassium 4.0 Chloride 99 Carbon Dioxide 29 Anion Gap 10 BUN 19 Creatinine 0.88 Est GFR ( Amer) > 60 Est GFR (Non-Af Amer) > 60 Glucose 73 L Calcium 8.3 L Magnesium 2.0 Total Bilirubin 0.6 AST 23 ALT 40 Alkaline Phosphatase 127 H Total Protein 7.8 Albumin 3.0 L 10/19/16 12:40 Clean Catch Midstream Urine Culture - Final NO GROWTH 2 DAYS 10/20/16 10/20/16 10/20/16 11:05 16:48 22:52 Troponin I < 0.012 < 0.012 < 0.012 Impressions: Lower Extremity CT 10/15/16 00:00 IMPRESSION: There is superficial soft tissue stranding in the subcutaneous fat which could represent edematous or inflammatory changes. There appears to be some associated skin thickening. The appearance is consistent with a cellulitis. No discrete fluid collections are identified to suggest an abscess collection. Other findings as noted above Chest X-Ray 10/22/16 06:00 IMPRESSION: NO CHANGE IN APPEARANCE OF THE CHEST. Assessment & Plan - Diagnosis (1) Acute on chronic respiratory failure with hypoxemia Plan: Patient is currently on bilevel Pap. His respiratory failure is multifactorial from obesity hypoventilation syndrome, heart failure, underlying COPD. I have tried to reorder his nebulizer treatments of medications that are not albuterol. The patient is still refusing them. General surgery has been consulted for the possibility of a trach. Patient has already said that he will not agree to this despite telling the physics faculty member yesterday that he would agree to it (2) Leg wound, right Plan: The current antibiotics. We will try her best to continue wound care with Santyl and dressings as the patient will allow. (3) Obesity hypoventilation syndrome Is this a current diagnosis for this admission?: YesPlan: Point the patient likely needs a trach. However he is refusing this. (4) Diastolic CHF Qualifiers: Congestive heart failure chronicity: acute on chronic Qualified Code (s): I50.33 - Acute on chronic diastolic (congestive) heart failure Is this a current diagnosis for this admission?: YesPlan: Some reason the patient have both Bumex and Lasix ordered. This has been narrowed down to Bumex alone. We will continue to diuresis and see how he fares. (5) Morbid obesity with BMI of 50.0-59.9, adult Is this a current diagnosis for this admission?: YesPlan: 2 dietary changes is recommended. The patient's mother is under the impression that his antipsychotics are responsible for his obesity. Likely this can only account for few pounds. The patient's BMI is currently at 55 and not solely due to antipsychotics. Did be on a reduced calorie diet to exercise. (6) AUTUMN (obstructive sleep apnea) Is this a current diagnosis for this admission?: YesPlan: Receiving bilevel Pap. (7) Schizo-affective schizophrenia Plan: The patient has not been taking his antipsychotic medications. I have started Seroquel at 50 mg twice daily and will titrate up. - Time Time Spent with patient: 35 or more minutes - Inpatient Certification Based on my medical assessment, after consideration of the patient's comorbidities, presenting symptoms, or acuity I expect that the services needed warrant INPATIENT care.: Yes Medical Necessity: Significant Comorbidiites Make Outpatient Treatment Too Risky
--- NOTE | 2016-10-22 10:13 | PDOC PROGRESS REPORT ---
Subjective Progress Note for:: 10/21/16 Subjective:: Remains dependent on noninvasive pressure ventilation Physical Exam Vital Signs: Temp Pulse Resp BP Pulse Ox 98.1 F 75 14 113/67 97 10/21/16 08:00 10/21/16 08:11 10/21/16 08:00 10/21/16 08:00 10/21/16 08:00 Intake & Output 10/20/16 10/21/16 10/22/16 06:59 06:59 06:59 Intake Total 2360 1715 Output Total 2460 2825 135 Balance -100 -1110 -135 Weight 193.6 kg 187.8 kg General appearance: PRESENT: cooperative, disheveled, morbidly obese, well- nourished Head exam: PRESENT: atraumatic, normocephalic Eye exam: PRESENT: conjunctiva pale, EOMI Mouth exam: PRESENT: dry mucosa, neck supple Neck exam: ABSENT: carotid bruit, JVD, lymphadenopathy, thyromegaly Respiratory exam: PRESENT: decreased breath sounds, prolonged expiratory phas, rhonchi, symmetrical, wheezes Cardiovascular exam: PRESENT: RRR, +S1, +S2 Pulses: PRESENT: normal radial pulses GI/Abdominal exam: PRESENT: normal bowel sounds, soft. ABSENT: distended, guarding, mass, organolmegaly, rebound, tenderness Rectal exam: PRESENT: deferred Gentrourinary exam: PRESENT: indwelling catheter Extremities exam: PRESENT: +2 edema, other - Stasis disease bilaterally cellulitis right lower extremity Neurological exam: PRESENT: awake Psychiatric exam: PRESENT: flat affect Skin exam: PRESENT: dry, warm Results Laboratory Results: 10/21/16 03:50 10/21/16 03:50 10/20/16 10/20/16 10/20/16 11:05 11:12 14:53 WBC RBC Hgb Hct MCV MCH MCHC RDW Plt Count Seg Neutrophils % Lymphocytes % Monocytes % Eosinophils % Basophils % Absolute Neutrophils Absolute Lymphocytes Absolute Monocytes Absolute Eosinophils Absolute Basophils Carbonic Acid 1.39 H 1.45 H HCO3/H2CO3 Ratio 20:1 19:1 ABG pH 7.41 7.38 ABG pCO2 46.3 H 48.1 H ABG pO2 198.2 H 167.1 H ABG HCO3 28.7 H 28.0 H ABG O2 Saturation 99.4 H 99.1 H ABG Base Excess 3.5 2.3 FiO2 50% 60% Sodium 137.2 Potassium 4.4 Chloride 103 Carbon Dioxide 25 Anion Gap 9 BUN 13 Creatinine 0.92 Est GFR ( Amer) > 60 Est GFR (Non-Af Amer) > 60 Glucose 160 H Calcium 8.5 Magnesium Total Bilirubin 0.8 AST 41 ALT 51 Alkaline Phosphatase 141 H C-Reactive Protein Total Protein 7.8 Albumin 2.9 L 10/21/16 10/21/16 10/21/16 03:50 03:50 04:50 WBC 11.5 H RBC 3.76 L Hgb 10.4 L Hct 32.2 L MCV 86 MCH 27.7 MCHC 32.3 RDW 14.9 H Plt Count 347 Seg Neutrophils % 85.7 H Lymphocytes % 8.5 L Monocytes % 5.3 Eosinophils % 0.0 Basophils % 0.5 Absolute Neutrophils 9.9 H Absolute Lymphocytes 1.0 Absolute Monocytes 0.6 Absolute Eosinophils 0.0 Absolute Basophils 0.1 Carbonic Acid 1.48 H HCO3/H2CO3 Ratio 20:1 ABG pH 7.40 ABG pCO2 49.2 H ABG pO2 108.5 H ABG HCO3 29.6 H ABG O2 Saturation 97.9 ABG Base Excess 3.9 FiO2 35% Sodium 139.6 Potassium 4.5 Chloride 103 Carbon Dioxide 29 Anion Gap 8 BUN 20 Creatinine 0.89 Est GFR ( Amer) > 60 Est GFR (Non-Af Amer) > 60 Glucose 137 H Calcium 8.5 Magnesium 2.2 Total Bilirubin 0.5 AST 18 ALT 45 Alkaline Phosphatase 130 H C-Reactive Protein 55.8 H Total Protein 7.9 Albumin 2.9 L 10/20/16 10/20/16 10/20/16 11:05 16:48 22:52 Troponin I < 0.012 < 0.012 < 0.012 Impressions: Lower Extremity CT 10/15/16 00:00 IMPRESSION: There is superficial soft tissue stranding in the subcutaneous fat which could represent edematous or inflammatory changes. There appears to be some associated skin thickening. The appearance is consistent with a cellulitis. No discrete fluid collections are identified to suggest an abscess collection. Other findings as noted above Chest X-Ray 10/21/16 06:00 IMPRESSION: Cardiomegaly and vascular congestion. Bibasilar airspace opacities , may represent a combination of pleural effusions and atelectasis or pneumonia. Followup chest x-ray with PA and lateral views recommended when patient condition's allows. Assessment & Plan - Diagnosis (1) Obesity hypoventilation syndrome Is this a current diagnosis for this admission?: Yes (2) Diastolic CHF Qualifiers: Qualified Code(s): I50.33 - Acute on chronic diastolic (congestive) heart failure Is this a current diagnosis for this admission?: Yes (3) History of pulmonary embolism Is this a current diagnosis for this admission?: Yes (4) Morbid obesity with BMI of 50.0-59.9, adult Is this a current diagnosis for this admission?: Yes (5) AUTUMN (obstructive sleep apnea) Is this a current diagnosis for this admission?: Yes - Time Critical Time spent with patient: 35 or more minutes - 45 Minutes
--- NOTE | 2016-10-22 10:16 | PDOC PROGRESS REPORT ---
Subjective Progress Note for:: 10/22/16 Subjective:: Using his BiPAP intermittently Physical Exam Vital Signs: Temp Pulse Resp BP Pulse Ox 98.9 F 60 15 147/75 H 96 10/22/16 05:44 10/22/16 05:44 10/22/16 05:44 10/22/16 05:44 10/22/16 06:00 Intake & Output 10/21/16 10/22/16 10/23/16 06:59 06:59 06:59 Intake Total 1715 1711 Output Total 2718 2710 Balance -1110 -3039 Weight 187.8 kg 185.6 kg General appearance: PRESENT: no acute distress, disheveled, morbidly obese, well -developed Head exam: PRESENT: atraumatic, normocephalic Eye exam: PRESENT: conjunctiva pale, EOMI Mouth exam: PRESENT: moist, neck supple Neck exam: ABSENT: carotid bruit, JVD, lymphadenopathy, thyromegaly Respiratory exam: PRESENT: decreased breath sounds, prolonged expiratory phas, rhonchi, symmetrical Cardiovascular exam: PRESENT: RRR, +S1, +S2 Pulses: PRESENT: normal radial pulses GI/Abdominal exam: PRESENT: normal bowel sounds, soft. ABSENT: distended, guarding, mass, organolmegaly, rebound, tenderness Rectal exam: PRESENT: deferred Gentrourinary exam: PRESENT: indwelling catheter Extremities exam: PRESENT: +2 edema Neurological exam: PRESENT: awake Psychiatric exam: PRESENT: flat affect Skin exam: PRESENT: dry, warm Results Laboratory Results: 10/22/16 04:13 10/22/16 04:13 10/22/16 10/22/16 10/22/16 04:13 04:13 04:50 WBC 11.7 H RBC 4.08 L Hgb 11.4 L Hct 34.5 L MCV 85 MCH 27.9 MCHC 33.0 RDW 15.0 H Plt Count 345 Seg Neutrophils % 71.6 Lymphocytes % 14.8 Monocytes % 10.5 Eosinophils % 1.6 Basophils % 1.5 Absolute Neutrophils 8.3 H Absolute Lymphocytes 1.7 Absolute Monocytes 1.2 Absolute Eosinophils 0.2 Absolute Basophils 0.2 Carbonic Acid 1.47 H HCO3/H2CO3 Ratio 24:1 ABG pH 7.48 H ABG pCO2 48.7 H ABG pO2 100.6 H ABG HCO3 35.5 H ABG O2 Saturation 97.9 ABG Base Excess 10.6 FiO2 30% Sodium 138.2 Potassium 4.0 Chloride 99 Carbon Dioxide 29 Anion Gap 10 BUN 19 Creatinine 0.88 Est GFR ( Amer) > 60 Est GFR (Non-Af Amer) > 60 Glucose 73 L Calcium 8.3 L Magnesium 2.0 Total Bilirubin 0.6 AST 23 ALT 40 Alkaline Phosphatase 127 H Total Protein 7.8 Albumin 3.0 L 10/19/16 12:40 Clean Catch Midstream Urine Culture - Final NO GROWTH 2 DAYS 10/20/16 10/20/16 10/20/16 11:05 16:48 22:52 Troponin I < 0.012 < 0.012 < 0.012 Impressions: Lower Extremity CT 10/15/16 00:00 IMPRESSION: There is superficial soft tissue stranding in the subcutaneous fat which could represent edematous or inflammatory changes. There appears to be some associated skin thickening. The appearance is consistent with a cellulitis. No discrete fluid collections are identified to suggest an abscess collection. Other findings as noted above Chest X-Ray 10/22/16 06:00 IMPRESSION: NO CHANGE IN APPEARANCE OF THE CHEST. Assessment & Plan - Diagnosis (1) Obesity hypoventilation syndrome Is this a current diagnosis for this admission?: Yes (2) Diastolic CHF Qualifiers: Congestive heart failure chronicity: acute on chronic Qualified Code (s): I50.33 - Acute on chronic diastolic (congestive) heart failure Is this a current diagnosis for this admission?: Yes (3) History of pulmonary embolism Is this a current diagnosis for this admission?: Yes (4) Morbid obesity with BMI of 50.0-59.9, adult Is this a current diagnosis for this admission?: Yes (5) AUTUMN (obstructive sleep apnea) Is this a current diagnosis for this admission?: Yes (6) Acute on chronic respiratory failure with hypoxemia Is this a current diagnosis for this admission?: YesPlan: Continues to improve - Time Critical Time spent with patient: 25-34 minutes
[2016-10-22] MEDS: CITALOPRAM HYDROBROMIDE 20 MG TABLET PO SCH (11:47)
[2016-10-22] MEDS: CETIRIZINE 10 MG TABLET PO SCH (11:47)
[2016-10-22] MEDS: FLUTICASONE NASAL SPRAY 50 MCG/SPRY 120 SPRAY/16 GM NASL SCH (11:48)
[2016-10-22] MEDS: COLLAGENASE CLOSTRIDIUM HIST. OINT 30 GM TOP SCH (13:36)
[2016-10-22] MEDS: LEVALBUTEROL HCL NEB 0.63 MG/3 ML AMPUL NEB SCH ×2 (14:06→20:51)
[2016-10-22] MEDS: VANCOMYCIN HCL 1,250 MG in DEXTROSE 5%-WATER 250 ML IV SCH (17:54)
[2016-10-22] MEDS: MONTELUKAST SODIUM 10 MG TABLET PO SCH (21:33)
[2016-10-22] MEDS: WARFARIN SODIUM 7.5 MG TABLET PO SCH (21:33)
[2016-10-23] MEDS: LEVALBUTEROL HCL NEB 0.63 MG/3 ML AMPUL NEB SCH ×4 (01:42→21:18)
[2016-10-23] MEDS: VANCOMYCIN HCL 1,250 MG in DEXTROSE 5%-WATER 250 ML IV SCH ×2 (05:19→17:30)
--- NOTE | 2016-10-23 09:20 | PDOC PROGRESS REPORT ---
Subjective Progress Note for:: 10/23/16 Subjective:: Is a follow-up visit for acute on chronic respiratory failure. The patient was seen at the bedside and states that his breathing is better this morning. I reviewed the nursing notes from overnight it seems that the patient had to be placed back on bilevel Pap in the evening. He was uncooperative for certain treatment such as reverse Trendelenburg position, keeping his leg elevated on a pillow, moving over to a larger bed based on his body habitus. In speaking with the patient this morning he denies any chest pain or shortness of breath. He is able to tell me his medical history in quite some detail including date, time of day and prescribing physician with their names and locations. He insists that he does not need a trach and recalls the day in time that 2 different physicians came to speak with him about it. He also recalls the antipsychotic medication that he was on at home. He states he had been taking it. He is able to give me the name of the physician emergency room physician assistant psychologist who prescribed it. He states that he wants to get out of the ICU so that he can use the bedside commode. Physical Exam Vital Signs: Temp Pulse Resp BP Pulse Ox 97.6 F 72 20 136/80 H 93 10/23/16 07:46 10/23/16 07:46 10/23/16 07:46 10/23/16 07:46 10/23/16 07:46 Intake & Output 10/22/16 10/23/16 10/24/16 06:59 06:59 06:59 Intake Total 1711 1169 Output Total 3676 4454 480 Balance -3034 -4636 -480 Weight 185.6 kg 182.7 kg General: This is a well-developed, well-nourished morbidly obese white male resting in bed currently nasal cannula Heart: Regular rate and rhythm 2/6 MAIRA ANTONIA murmur rubs or gallops. Lungs: Clear to auscultation anterior perspective. The patient has occasional pursed lip breathing after prolonged conversation. Abdomen: Obese, soft, nondistended. Extremities: No clubbing, cyanosis. No edema in the left lower extremity. The right lower extremity has 1+ edema. 1+ peripheral pulses. Neuro: Awake, alert, oriented 3. Speech is fluent. Cranial nerves are grossly intact. Skin: The right lower extremity is dressed appropriately. Psych: Patient is quite pleasant this morning. He is cooperative with those things with which he agrees. The patient displays some understanding of his medical condition And certainly has good recall of events that has happened to him. His understanding of his disease process however is lacking. He still believes that he has albuterol toxicity and that is the reason why he cannot agree. He still subscribes to the idea that lying flat is better for his breathing despite multiple explanations that his weight is restricted to his breathing and that sitting up will allow better oxygenation. Results Laboratory Results: 10/22/16 04:13 10/22/16 04:13 10/20/16 10/20/16 10/20/16 11:05 16:48 22:52 Troponin I < 0.012 < 0.012 < 0.012 Impressions: Lower Extremity CT 10/15/16 00:00 IMPRESSION: There is superficial soft tissue stranding in the subcutaneous fat which could represent edematous or inflammatory changes. There appears to be some associated skin thickening. The appearance is consistent with a cellulitis. No discrete fluid collections are identified to suggest an abscess collection. Other findings as noted above Chest X-Ray 10/22/16 06:00 IMPRESSION: NO CHANGE IN APPEARANCE OF THE CHEST. Assessment & Plan - Diagnosis (1) Acute on chronic respiratory failure with hypoxemia Is this a current diagnosis for this admission?: YesPlan: Patient is currently on bilevel Pap. His respiratory failure is multifactorial from obesity hypoventilation syndrome, heart failure, underlying COPD. the patient is still refusing breathing treatments. Pulmonology is following. (2) Leg wound, right Plan: The current antibiotics. We will try her best to continue wound care with Santyl and dressings as the patient will allow. (3) Obesity hypoventilation syndrome Is this a current diagnosis for this admission?: YesPlan: the patient likely needs a trach. However he is refusing this. (4) Diastolic CHF Qualifiers: Congestive heart failure chronicity: acute on chronic Qualified Code (s): I50.33 - Acute on chronic diastolic (congestive) heart failure Is this a current diagnosis for this admission?: YesPlan: Continue Bumex as ordered.. He has diuresed 2.5 L overnight. (5) Morbid obesity with BMI of 50.0-59.9, adult Is this a current diagnosis for this admission?: YesPlan: 2 dietary changes is recommended. The patient's mother is under the impression that his antipsychotics are responsible for his obesity. Likely this can only account for few pounds. The patient's BMI is currently at 55 and not solely due to antipsychotics. Did be on a reduced calorie diet to exercise. (6) AUTUMN (obstructive sleep apnea) Is this a current diagnosis for this admission?: YesPlan: Receiving bilevel Pap. (7) Schizo-affective schizophrenia Plan: The patient has not been taking his antipsychotic medications. I have started Seroquel at 50 mg twice daily. Plans are to titrate up on this. The patient however does state that his father brought in his medication last night. I will need to verify this with the nursing staff in the pharmacy. If the patient has his medication here today we can simply restart that. Otherwise, I will need to titrate up the Seroquel today. Also, I am going to consult psychiatry to evaluate him for this capacity. The patient is oriented and certainly can give me times and dates as well as diagnoses and medications however he seems to lack insight in the core reason as to why he cannot breathe. I have concerns about making decisions for himself. - Time Time Spent with patient: 25-34 minutes - Inpatient Certification I certify that my determination is in accordance with my understanding of Medicare's requirements for reasonable and necessary INPATIENT services [42 CFR 412.3e].: Yes Medical Necessity: Need Close Monitoring Due to Risk of Patient Decompensation
[2016-10-23] MEDS: LACTOBACILLUS ACIDOPHILUS 250 MG TAB PO SCH ×2 (10:56→17:32)
[2016-10-23] MEDS: BREXPIPRAZOLE 2 MG PO SCH (10:56)
[2016-10-23] MEDS: GLIMEPIRIDE 1 MG TABLET PO SCH ×2 (10:56→17:32)
[2016-10-23] MEDS: CARVEDILOL 12.5 MG TABLET PO SCH ×2 (10:56→22:07)
[2016-10-23] MEDS: NIFEDIPINE 30 MG TAB.ER.24 PO SCH ×2 (10:57→21:42)
[2016-10-23] MEDS: BUMETANIDE INJ/PF 1 MG/4 ML SDV IV SCH ×2 (10:57→21:38)
[2016-10-23] MEDS: DOCUSATE SODIUM 100 MG CAPSULE PO SCH ×2 (10:58→17:28)
--- NOTE | 2016-10-23 11:17 | PDOC PROGRESS REPORT ---
Subjective Progress Note for:: 10/23/16 Subjective:: Using his BiPAP intermittently Physical Exam Vital Signs: Temp Pulse Resp BP Pulse Ox 98.5 F 59 L 19 144/78 H 95 10/23/16 04:00 10/23/16 01:43 10/23/16 06:30 10/23/16 05:56 10/23/16 06:30 Intake & Output 10/22/16 10/23/16 10/24/16 06:59 06:59 06:59 Intake Total 1711 1169 Output Total 4750 0777 Balance -3039 -7972 Weight 185.6 kg 182.7 kg General appearance: PRESENT: no acute distress, disheveled, morbidly obese, well -developed Head exam: PRESENT: atraumatic, normocephalic Eye exam: PRESENT: conjunctiva pink, EOMI Mouth exam: PRESENT: dry mucosa, neck supple, tongue midline Neck exam: ABSENT: carotid bruit, JVD, lymphadenopathy, thyromegaly Respiratory exam: PRESENT: decreased breath sounds, prolonged expiratory phas, rhonchi, unlabored Cardiovascular exam: PRESENT: RRR, +S1, +S2 Pulses: PRESENT: normal radial pulses GI/Abdominal exam: PRESENT: normal bowel sounds, soft. ABSENT: distended, guarding, mass, organolmegaly, rebound, tenderness Rectal exam: PRESENT: deferred Extremities exam: PRESENT: +2 edema Neurological exam: PRESENT: awake Psychiatric exam: PRESENT: normal mood Skin exam: PRESENT: dry, warm Results Laboratory Results: 10/22/16 04:13 10/22/16 04:13 10/20/16 10/20/16 10/20/16 11:05 16:48 22:52 Troponin I < 0.012 < 0.012 < 0.012 Impressions: Lower Extremity CT 10/15/16 00:00 IMPRESSION: There is superficial soft tissue stranding in the subcutaneous fat which could represent edematous or inflammatory changes. There appears to be some associated skin thickening. The appearance is consistent with a cellulitis. No discrete fluid collections are identified to suggest an abscess collection. Other findings as noted above Chest X-Ray 10/22/16 06:00 IMPRESSION: NO CHANGE IN APPEARANCE OF THE CHEST. Assessment & Plan - Diagnosis (1) Obesity hypoventilation syndrome Is this a current diagnosis for this admission?: YesPlan: NIPPV chronic vs tracheostomy (2) Diastolic CHF Qualifiers: Congestive heart failure chronicity: acute on chronic Qualified Code (s): I50.33 - Acute on chronic diastolic (congestive) heart failure Is this a current diagnosis for this admission?: Yes (3) History of pulmonary embolism Is this a current diagnosis for this admission?: Yes (4) Morbid obesity with BMI of 50.0-59.9, adult Is this a current diagnosis for this admission?: Yes (5) AUTUMN (obstructive sleep apnea) Is this a current diagnosis for this admission?: Yes (6) Acute on chronic respiratory failure with hypoxemia Is this a current diagnosis for this admission?: Yes - Time Critical Time spent with patient: 25-34 minutes
[2016-10-23] MEDS: COLLAGENASE CLOSTRIDIUM HIST. OINT 30 GM TOP SCH (13:59)
[2016-10-23] MEDS: CETIRIZINE 10 MG TABLET PO SCH (14:00)
[2016-10-23] MEDS: CITALOPRAM HYDROBROMIDE 20 MG TABLET PO SCH (14:00)
[2016-10-23] MEDS: FLUTICASONE NASAL SPRAY 50 MCG/SPRY 120 SPRAY/16 GM NASL SCH (14:01)
[2016-10-23] MEDS: WARFARIN SODIUM 7.5 MG TABLET PO SCH (21:42)
[2016-10-23] MEDS: MONTELUKAST SODIUM 10 MG TABLET PO SCH (21:43)
[2016-10-24] MEDS: LEVALBUTEROL HCL NEB 0.63 MG/3 ML AMPUL NEB SCH ×4 (02:41→20:14)
[2016-10-24 03:54] LABS: ARTERIAL BLOOD BASE EXCESS 9.6 mmol/L; ARTERIAL BLOOD O2 SATURATION 98.2 % (94-98)
[2016-10-24] MEDS: VANCOMYCIN HCL 1,250 MG in DEXTROSE 5%-WATER 250 ML IV SCH ×2 (06:15→18:36)
[2016-10-24 06:29] LABS: ANION GAP 9 (5-19); BLOOD UREA NITROGEN 16 mg/dL (7-20); CALCIUM 8.9 mg/dL (8.4-10.2); CARBON DIOXIDE 32 mmol/L (22-30); CHLORIDE 98 mmol/L (98-107); CREATININE RESULT 0.98 mg/dL (0.52-1.25); GLUCOSE 116 mg/dL (75-110); POTASSIUM 3.8 mmol/L (3.6-5.0); SODIUM 139.1 mmol/L (137-145)
[2016-10-24 06:36] LABS: ABSOLUTE BASOPHILS # (AUTO) 0.2 10^3/uL (0.0-0.2); ABSOLUTE EOSINOPHILS # (AUTO) 0.3 10^3/uL (0.0-0.6); ABSOLUTE LYMPHOCYTES (AUTO) 1.3 10^3/uL (0.5-4.7); ABSOLUTE MONOCYTES (AUTO) 0.8 10^3/uL (0.1-1.4); ABSOLUTE NEUT (AUTO) 5.6 10^3/uL (1.7-8.2); BASOPHILS % (AUTO) 2.1 % (0-2); EOSINOPHILS % (AUTO) 4.1 % (0-6); HEMATOCRIT 34.5 % (37.9-51.0); HEMOGLOBIN 11.5 g/dL (13.5-17.0); LYMPHOCYTES % (AUTO) 15.7 % (13-45); MEAN CORPUSCULAR HEMOGLOBIN 28.1 pg (27.0-33.4); MEAN CORPUSCULAR HGB CONC 33.2 g/dL (32.0-36.0); MEAN CORPUSCULAR VOLUME 85 fl (80-97); MONOCYTES % (AUTO) 9.3 % (3-13); RED BLOOD COUNT 4.08 10^6/uL (4.35-5.55); SEGMENTED NEUTROPHILS % (AUTO) 68.8 % (42-78); WHITE BLOOD COUNT 8.1 10^3/uL (4.0-10.5)
--- NOTE | 2016-10-24 09:11 | PDOC PROGRESS REPORT ---
Subjective Progress Note for:: 10/24/16 Subjective:: This a follow-up visit for acute on chronic respiratory failure. The patient was seen at the bedside and states that his breathing is better this morning. Patient had a good night overnight. No acute events. He denies any chest discomfort or current shortness of breath. He is ready to be transferred out of the ICU did not go because of that situation. He still is asking for bedside commode once he gets to his new room. Physical Exam Vital Signs: Temp Pulse Resp BP Pulse Ox 98.0 F 68 15 143/73 H 98 10/24/16 08:00 10/24/16 08:22 10/24/16 08:00 10/24/16 08:00 10/24/16 08:00 Intake & Output 10/23/16 10/24/16 10/25/16 06:59 06:59 06:59 Intake Total 1169 2462 Output Total 0884 5934 Balance -0867 -0230 Weight 182.7 kg 181.9 kg General: This is a well-developed, well-nourished morbidly obese white male resting in bed currently nasal cannula Heart: Regular rate and rhythm 2/6 MARIA ANTONIA murmur rubs or gallops. Lungs: Clear to auscultation anterior perspective. Abdomen: Obese, soft, nondistended. Extremities: No clubbing, cyanosis. No edema in the left lower extremity. The right lower extremity has 1+ edema. 1+ peripheral pulses. Neuro: Awake, alert, oriented 3. Speech is fluent. Cranial nerves are grossly intact. Skin: The right lower extremity is dressed appropriately. Psych: Unchanged. Cooperative and friendly. Poor insight into his disease pathology. Results Laboratory Results: 10/24/16 04:08 10/24/16 04:08 10/24/16 10/24/16 10/24/16 03:45 04:08 04:08 WBC 8.1 RBC 4.08 L Hgb 11.5 L Hct 34.5 L MCV 85 MCH 28.1 MCHC 33.2 RDW 15.0 H Plt Count 341 Seg Neutrophils % 68.8 Lymphocytes % 15.7 Monocytes % 9.3 Eosinophils % 4.1 Basophils % 2.1 H Absolute Neutrophils 5.6 Absolute Lymphocytes 1.3 Absolute Monocytes 0.8 Absolute Eosinophils 0.3 Absolute Basophils 0.2 Carbonic Acid 1.49 H HCO3/H2CO3 Ratio 23:1 ABG pH 7.46 H ABG pCO2 49.5 H ABG pO2 110.6 H ABG HCO3 34.7 H ABG O2 Saturation 98.2 H ABG Base Excess 9.6 FiO2 30% Sodium 139.1 Potassium 3.8 Chloride 98 Carbon Dioxide 32 H Anion Gap 9 BUN 16 Creatinine 0.98 Est GFR ( Amer) > 60 Est GFR (Non-Af Amer) > 60 Glucose 116 H Calcium 8.9 Magnesium 2.0 10/20/16 10/20/16 10/20/16 11:05 16:48 22:52 Troponin I < 0.012 < 0.012 < 0.012 Impressions: Lower Extremity CT 10/15/16 00:00 IMPRESSION: There is superficial soft tissue stranding in the subcutaneous fat which could represent edematous or inflammatory changes. There appears to be some associated skin thickening. The appearance is consistent with a cellulitis. No discrete fluid collections are identified to suggest an abscess collection. Other findings as noted above Chest X-Ray 10/22/16 06:00 IMPRESSION: NO CHANGE IN APPEARANCE OF THE CHEST. Assessment & Plan - Diagnosis (1) Acute on chronic respiratory failure with hypoxemia Is this a current diagnosis for this admission?: YesPlan: Patient is currently on bilevel Pap. His respiratory failure is multifactorial from obesity hypoventilation syndrome, heart failure, underlying COPD. the patient is still refusing breathing treatments. Pulmonology is following. (2) Leg wound, right Plan: The current antibiotics. The patient was cooperative with his dressing change yesterday and weaning off of his wound. (3) Obesity hypoventilation syndrome Is this a current diagnosis for this admission?: YesPlan: the patient likely needs a trach. However he is refusing this. (4) Diastolic CHF Qualifiers: Congestive heart failure chronicity: acute on chronic Qualified Code (s): I50.33 - Acute on chronic diastolic (congestive) heart failure Is this a current diagnosis for this admission?: YesPlan: Continue Bumex as ordered. The patient diuresed 5 L overnight. His kidneys seem to be tolerating diuresis quite well. Continue to monitor. (5) Morbid obesity with BMI of 50.0-59.9, adult Is this a current diagnosis for this admission?: YesPlan: 2 dietary changes is recommended. The patient's mother is under the impression that his antipsychotics are responsible for his obesity. Likely this can only account for few pounds. The patient's BMI is currently at 55 and not solely due to antipsychotics. Did be on a reduced calorie diet to exercise. (6) AUTUMN (obstructive sleep apnea) Is this a current diagnosis for this admission?: YesPlan: Receiving bilevel Pap. (7) Schizo-affective schizophrenia Plan: Continue home medications. These have been verified by the pharmacy. - Time Time Spent with patient: 25-34 minutes Anticipated discharge: Home - Inpatient Certification Medical Necessity: Need Close Monitoring Due to Risk of Patient Decompensation
[2016-10-24] MEDS: BREXPIPRAZOLE 2 MG PO SCH (09:41)
[2016-10-24] MEDS: CARVEDILOL 12.5 MG TABLET PO SCH ×2 (09:42→22:26)
[2016-10-24] MEDS: LACTOBACILLUS ACIDOPHILUS 250 MG TAB PO SCH ×2 (09:42→18:37)
[2016-10-24] MEDS: NIFEDIPINE 30 MG TAB.ER.24 PO SCH ×2 (09:42→22:25)
[2016-10-24] MEDS: GLIMEPIRIDE 1 MG TABLET PO SCH ×2 (09:42→18:38)
[2016-10-24] MEDS: BUMETANIDE INJ/PF 1 MG/4 ML SDV IV SCH ×2 (09:43→22:24)
[2016-10-24] MEDS: DOCUSATE SODIUM 100 MG CAPSULE PO SCH ×2 (09:43→18:39)
[2016-10-24] MEDS: COLLAGENASE CLOSTRIDIUM HIST. OINT 30 GM TOP SCH (12:22)
[2016-10-24] MEDS: CETIRIZINE 10 MG TABLET PO SCH (12:23)
[2016-10-24] MEDS: FLUTICASONE NASAL SPRAY 50 MCG/SPRY 120 SPRAY/16 GM NASL SCH (12:23)
[2016-10-24] MEDS: CITALOPRAM HYDROBROMIDE 20 MG TABLET PO SCH (12:23)
[2016-10-24] MEDS ORDERED: BUMETANIDE INJ/PF 1 MG/4 ML SDV ONE (22:22)
[2016-10-24] MEDS: WARFARIN SODIUM 7.5 MG TABLET PO SCH (22:25)
[2016-10-24] MEDS: MONTELUKAST SODIUM 10 MG TABLET PO SCH (22:25)
[2016-10-25] MEDS: LEVALBUTEROL HCL NEB 0.63 MG/3 ML AMPUL NEB SCH ×5 (01:40→22:39)
[2016-10-25 04:54] LABS: ABSOLUTE BASOPHILS # (AUTO) 0.1 10^3/uL (0.0-0.2); ABSOLUTE EOSINOPHILS # (AUTO) 0.3 10^3/uL (0.0-0.6); ABSOLUTE LYMPHOCYTES (AUTO) 1.3 10^3/uL (0.5-4.7); ABSOLUTE MONOCYTES (AUTO) 0.7 10^3/uL (0.1-1.4); ABSOLUTE NEUT (AUTO) 5.4 10^3/uL (1.7-8.2); BASOPHILS % (AUTO) 1.4 % (0-2); EOSINOPHILS % (AUTO) 3.6 % (0-6); HEMATOCRIT 34.4 % (37.9-51.0); HEMOGLOBIN 11.5 g/dL (13.5-17.0); HGB HCT DIFFERENCE 0.1; LYMPHOCYTES % (AUTO) 16.8 % (13-45); MEAN CORPUSCULAR HEMOGLOBIN 28.1 pg (27.0-33.4); MEAN CORPUSCULAR HGB CONC 33.5 g/dL (32.0-36.0); MEAN CORPUSCULAR VOLUME 84 fl (80-97); MONOCYTES % (AUTO) 9.1 % (3-13); RED CELL DISTRIBUTION WIDTH 14.9 % (11.5-14.0); SEGMENTED NEUTROPHILS % (AUTO) 69.1 % (42-78); WHITE BLOOD COUNT 7.9 10^3/uL (4.0-10.5)
[2016-10-25 05:17] LABS: ANION GAP 9 (5-19); BLOOD UREA NITROGEN 19 mg/dL (7-20); CALCIUM 8.8 mg/dL (8.4-10.2); CARBON DIOXIDE 31 mmol/L (22-30); CHLORIDE 98 mmol/L (98-107); CREATININE RESULT 0.85 mg/dL (0.52-1.25); GLUCOSE 86 mg/dL (75-110); POTASSIUM 3.8 mmol/L (3.6-5.0); SODIUM 138.1 mmol/L (137-145)
[2016-10-25] MEDS: VANCOMYCIN HCL 1,250 MG in DEXTROSE 5%-WATER 250 ML IV SCH ×2 (05:40→17:13)
[2016-10-25 06:44] LABS: ARTERIAL BLOOD BASE EXCESS 8.1 mmol/L
[2016-10-25] MEDS: NIFEDIPINE 30 MG TAB.ER.24 PO SCH ×2 (10:01→22:02)
[2016-10-25] MEDS: CARVEDILOL 12.5 MG TABLET PO SCH ×2 (10:02→22:02)
[2016-10-25] MEDS: DOCUSATE SODIUM 100 MG CAPSULE PO SCH ×2 (10:03→17:12)
[2016-10-25] MEDS: LACTOBACILLUS ACIDOPHILUS 250 MG TAB PO SCH ×2 (10:03→17:12)
[2016-10-25] MEDS: BREXPIPRAZOLE 2 MG PO SCH (10:03)
[2016-10-25] MEDS: GLIMEPIRIDE 1 MG TABLET PO SCH ×2 (10:03→17:13)
[2016-10-25] MEDS: CETIRIZINE 10 MG TABLET PO SCH (13:24)
[2016-10-25] MEDS: CITALOPRAM HYDROBROMIDE 20 MG TABLET PO SCH (13:25)
[2016-10-25] MEDS: BUMETANIDE INJ/PF 1 MG/4 ML SDV IV SCH ×2 (13:25→22:02)
[2016-10-25] MEDS: FLUTICASONE NASAL SPRAY 50 MCG/SPRY 120 SPRAY/16 GM NASL SCH (13:29)
--- NOTE | 2016-10-25 15:27 | PDOC PROGRESS REPORT ---
Subjective Progress Note for:: 10/25/16 Subjective:: This is a follow-up visit for acute on chronic respiratory failure. Patient has no complaints of morning other than Arambula catheter is getting to be irritating. He denies any chest pain or shortness of breath. Physical Exam Vital Signs: Temp Pulse Resp BP Pulse Ox 98.1 F 72 20 133/60 H 97 10/25/16 11:44 10/25/16 11:44 10/25/16 11:44 10/25/16 11:44 10/25/16 11:44 Intake & Output 10/24/16 10/25/16 10/26/16 06:59 06:59 06:59 Intake Total 2462 2130 903 Output Total 7605 2330 1500 Balance -5143 -200 -597 Weight 181.9 kg 182.7 kg General: This is a well-developed, well-nourished morbidly obese white male resting in bed currently nasal cannula Heart: Regular rate and rhythm 2/6 MARIA ANTONIA murmur rubs or gallops. Lungs: Clear to auscultation anterior perspective. The patient has occasional pursed lip breathing after prolonged conversation. Abdomen: Obese, soft, nondistended. Extremities: No clubbing, cyanosis. No edema in the left lower extremity. The right lower extremity has 1+ edema. 1+ peripheral pulses. Neuro: Awake, alert, oriented 3. Speech is fluent. Cranial nerves are grossly intact. Skin: The right lower extremity is dressed appropriately. Psych: Unchanged Results Laboratory Results: 10/25/16 03:57 10/25/16 03:57 10/25/16 10/25/16 10/25/16 03:57 03:57 06:25 WBC 7.9 RBC 4.10 L Hgb 11.5 L Hct 34.4 L MCV 84 MCH 28.1 MCHC 33.5 RDW 14.9 H Plt Count 361 Seg Neutrophils % 69.1 Lymphocytes % 16.8 Monocytes % 9.1 Eosinophils % 3.6 Basophils % 1.4 Absolute Neutrophils 5.4 Absolute Lymphocytes 1.3 Absolute Monocytes 0.7 Absolute Eosinophils 0.3 Absolute Basophils 0.1 Carbonic Acid 1.43 H HCO3/H2CO3 Ratio 23:1 ABG pH 7.46 H ABG pCO2 47.5 H ABG pO2 78.1 L ABG HCO3 33.0 H ABG O2 Saturation 96.0 ABG Base Excess 8.1 FiO2 ROOM AIR Sodium 138.1 Potassium 3.8 Chloride 98 Carbon Dioxide 31 H Anion Gap 9 BUN 19 Creatinine 0.85 Est GFR ( Amer) > 60 Est GFR (Non-Af Amer) > 60 Glucose 86 Calcium 8.8 10/19/16 13:20 Blood Blood Culture - Final NO GROWTH IN 5 DAYS 10/19/16 12:15 Blood Blood Culture - Final NO GROWTH IN 5 DAYS 10/20/16 10/20/16 10/20/16 11:05 16:48 22:52 Troponin I < 0.012 < 0.012 < 0.012 Impressions: Lower Extremity CT 10/15/16 00:00 IMPRESSION: There is superficial soft tissue stranding in the subcutaneous fat which could represent edematous or inflammatory changes. There appears to be some associated skin thickening. The appearance is consistent with a cellulitis. No discrete fluid collections are identified to suggest an abscess collection. Other findings as noted above Chest X-Ray 10/22/16 06:00 IMPRESSION: NO CHANGE IN APPEARANCE OF THE CHEST. Assessment & Plan - Diagnosis (1) Acute on chronic respiratory failure with hypoxemia Is this a current diagnosis for this admission?: YesPlan: Patient is currently on room air. his respiratory failure is multifactorial from obesity hypoventilation syndrome, heart failure, underlying COPD. the patient is still refusing breathing treatments. He is now refusing oxygen. Pulmonology is following. (2) Leg wound, right Plan: The current antibiotics. We will try her best to continue wound care with Santyl and dressings as the patient will allow. (3) Obesity hypoventilation syndrome Is this a current diagnosis for this admission?: YesPlan: the patient likely needs a trach. However he is refusing this. (4) Diastolic CHF Qualifiers: Congestive heart failure chronicity: acute on chronic Qualified Code (s): I50.33 - Acute on chronic diastolic (congestive) heart failure Is this a current diagnosis for this admission?: YesPlan: Continue Bumex as ordered. Change Bumex to p.o. (5) Morbid obesity with BMI of 50.0-59.9, adult Is this a current diagnosis for this admission?: YesPlan: 2 dietary changes is recommended. The patient's mother is under the impression that his antipsychotics are responsible for his obesity. Likely this can only account for few pounds. The patient's BMI is currently at 55 and not solely due to antipsychotics. Did be on a reduced calorie diet to exercise. (6) AUTUMN (obstructive sleep apnea) Is this a current diagnosis for this admission?: YesPlan: Receiving bilevel Pap. (7) Schizo-affective schizophrenia Plan: The patient has not been taking his antipsychotic medications. Continue antipsychotic. Psych consult was placed for evaluation of mental capacity. - Time Time Spent with patient: 15-24 minutes - Inpatient Certification Medical Necessity: Significant Comorbidiites Make Outpatient Treatment Too Risky
[2016-10-25] MEDS: COLLAGENASE CLOSTRIDIUM HIST. OINT 30 GM TOP SCH (17:12)
[2016-10-25] MEDS: WARFARIN SODIUM 7.5 MG TABLET PO SCH (22:02)
[2016-10-25] MEDS: MONTELUKAST SODIUM 10 MG TABLET PO SCH (22:02)
[2016-10-26] MEDS: VANCOMYCIN HCL 1,250 MG in DEXTROSE 5%-WATER 250 ML IV SCH ×2 (06:13→17:12)
[2016-10-26 07:44] LABS: CREATININE RESULT 0.81 mg/dL (0.52-1.25)
[2016-10-26] MEDS: LEVALBUTEROL HCL NEB 0.63 MG/3 ML AMPUL NEB SCH (08:48)
[2016-10-26] MEDS ORDERED: LEVALBUTEROL HCL NEB 0.63 MG/3 ML AMPUL NEB PRN (09:58)
[2016-10-26] MEDS: BUMETANIDE INJ/PF 1 MG/4 ML SDV IV SCH (10:55)
[2016-10-26] MEDS: CARVEDILOL 12.5 MG TABLET PO SCH ×2 (10:56→21:31)
[2016-10-26] MEDS: GLIMEPIRIDE 1 MG TABLET PO SCH ×2 (10:56→17:11)
[2016-10-26] MEDS: LACTOBACILLUS ACIDOPHILUS 250 MG TAB PO SCH ×2 (10:57→17:10)
[2016-10-26] MEDS: NIFEDIPINE 30 MG TAB.ER.24 PO SCH ×2 (10:57→21:30)
[2016-10-26] MEDS: DOCUSATE SODIUM 100 MG CAPSULE PO SCH ×2 (10:58→17:12)
[2016-10-26] MEDS: BREXPIPRAZOLE 2 MG PO SCH (11:02)
[2016-10-26] MEDS: FLUTICASONE NASAL SPRAY 50 MCG/SPRY 120 SPRAY/16 GM NASL SCH (11:14)
[2016-10-26] MEDS: CITALOPRAM HYDROBROMIDE 20 MG TABLET PO SCH (11:14)
[2016-10-26] MEDS: CETIRIZINE 10 MG TABLET PO SCH (11:15)
[2016-10-26] MEDS: COLLAGENASE CLOSTRIDIUM HIST. OINT 30 GM TOP SCH (13:33)
--- NOTE | 2016-10-26 15:47 | PDOC PROGRESS REPORT ---
Subjective Progress Note for:: 10/26/16 Subjective:: This is a follow-up visit for acute on chronic respiratory failure. No acute overnight. He denies any chest pain or shortness of breath. Physical Exam Vital Signs: Temp Pulse Resp BP Pulse Ox 98.3 F 60 24 H 148/61 H 95 10/26/16 11:09 10/26/16 14:00 10/26/16 11:09 10/26/16 11:09 10/26/16 11:09 Intake & Output 10/25/16 10/26/16 10/27/16 06:59 06:59 06:59 Intake Total 2130 3397 820 Output Total 2330 1500 Balance -200 1897 820 Weight 182.7 kg 181.4 kg General: This is a well-developed, well-nourished morbidly obese white male resting in bed currently on CPAP Heart: Regular rate and rhythm 2/6 MARIA ANTONIA murmur rubs or gallops. Lungs: Clear to auscultation anterior perspective. Abdomen: Obese, soft, nondistended. Extremities: No clubbing, cyanosis. Edema is resolved. 1+ peripheral pulses. Neuro: Awake, alert, oriented 3. Speech is fluent. Cranial nerves are grossly intact. Skin: The right lower extremity dressings are usp off.. Results Laboratory Results: 10/25/16 03:57 10/26/16 06:00 10/26/16 06:00 Creatinine 0.81 Est GFR ( Amer) > 60 Est GFR (Non-Af Amer) > 60 10/20/16 10/20/16 10/20/16 11:05 16:48 22:52 Troponin I < 0.012 < 0.012 < 0.012 Impressions: Lower Extremity CT 10/15/16 00:00 IMPRESSION: There is superficial soft tissue stranding in the subcutaneous fat which could represent edematous or inflammatory changes. There appears to be some associated skin thickening. The appearance is consistent with a cellulitis. No discrete fluid collections are identified to suggest an abscess collection. Other findings as noted above Chest X-Ray 10/22/16 06:00 IMPRESSION: NO CHANGE IN APPEARANCE OF THE CHEST. Assessment & Plan - Diagnosis (1) Acute on chronic respiratory failure with hypoxemia Is this a current diagnosis for this admission?: YesPlan: Patient is currently on room air. his respiratory failure is multifactorial from obesity hypoventilation syndrome, heart failure, underlying COPD. the patient is still refusing breathing treatments. He is now refusing oxygen. Pulmonology is following. (2) Leg wound, right Plan: The current antibiotics. We will try her best to continue wound care with Santyl and dressings as the patient will allow. (3) Obesity hypoventilation syndrome Is this a current diagnosis for this admission?: YesPlan: the patient likely needs a trach. However he is refusing this. (4) Diastolic CHF Qualifiers: Congestive heart failure chronicity: acute on chronic Qualified Code (s): I50.33 - Acute on chronic diastolic (congestive) heart failure Is this a current diagnosis for this admission?: YesPlan: Continue Bumex as ordered. (5) Morbid obesity with BMI of 50.0-59.9, adult Is this a current diagnosis for this admission?: YesPlan: 2 dietary changes is recommended. The patient's mother is under the impression that his antipsychotics are responsible for his obesity. Likely this can only account for few pounds. The patient's BMI is currently at 55 and not solely due to antipsychotics. Did be on a reduced calorie diet to exercise. (6) AUTUMN (obstructive sleep apnea) Is this a current diagnosis for this admission?: YesPlan: Receiving bilevel Pap. (7) Schizo-affective schizophrenia Plan: The patient has not been taking his antipsychotic medications. Continue antipsychotic. Psych consult was placed for evaluation of mental capacity. - Time Time Spent with patient: 15-24 minutes Anticipated discharge: SNF - Inpatient Certification Medical Necessity: Need Close Monitoring Due to Risk of Patient Decompensation
[2016-10-26] MEDS: BUMETANIDE 1 MG TABLET PO SCH (17:10)
[2016-10-26] MEDS: INSULIN LISPRO 100 UNIT/ML 3 ML VIAL SUBCUT PRN (17:19)
[2016-10-26] MEDS: MONTELUKAST SODIUM 10 MG TABLET PO SCH (21:30)
[2016-10-26] MEDS: WARFARIN SODIUM 7.5 MG TABLET PO SCH (21:31)
[2016-10-27] MEDS: VANCOMYCIN HCL 1,250 MG in DEXTROSE 5%-WATER 250 ML IV SCH (05:12)
[2016-10-27] MEDS: NIFEDIPINE 30 MG TAB.ER.24 PO SCH ×2 (09:34→21:11)
[2016-10-27] MEDS: CARVEDILOL 12.5 MG TABLET PO SCH ×2 (09:35→21:10)
[2016-10-27] MEDS: LACTOBACILLUS ACIDOPHILUS 250 MG TAB PO SCH ×2 (09:35→18:31)
[2016-10-27] MEDS: GLIMEPIRIDE 1 MG TABLET PO SCH ×2 (09:36→18:30)
[2016-10-27] MEDS: BREXPIPRAZOLE 2 MG PO SCH (09:38)
[2016-10-27] MEDS: BUMETANIDE 1 MG TABLET PO SCH ×2 (09:39→18:30)
[2016-10-27] MEDS: DOCUSATE SODIUM 100 MG CAPSULE PO SCH ×2 (09:40→18:32)
[2016-10-27] MEDS: FLUTICASONE NASAL SPRAY 50 MCG/SPRY 120 SPRAY/16 GM NASL SCH (12:23)
[2016-10-27] MEDS: COLLAGENASE CLOSTRIDIUM HIST. OINT 30 GM TOP SCH (12:24)
[2016-10-27] MEDS: CITALOPRAM HYDROBROMIDE 20 MG TABLET PO SCH (12:24)
[2016-10-27] MEDS: CETIRIZINE 10 MG TABLET PO SCH (12:24)
--- NOTE | 2016-10-27 13:19 | PDOC PROGRESS REPORT ---
Subjective Progress Note for:: 10/27/16 Subjective:: This is a follow-up visit for acute on chronic respiratory failure. No acute events overnight. He denies any chest pain or shortness of breath. Physical Exam Vital Signs: Temp Pulse Resp BP Pulse Ox 98.5 F 69 19 121/59 L 96 10/27/16 08:17 10/27/16 08:17 10/27/16 08:17 10/27/16 08:17 10/27/16 08:17 Intake & Output 10/26/16 10/27/16 10/28/16 06:59 06:59 06:59 Intake Total 3397 3852 Output Total 1500 Balance 1897 3852 Weight 181.4 kg 181.2 kg General: This is a well-developed, well-nourished morbidly obese white male resting in bed currently on CPAP Heart: Regular rate and rhythm 2/6 MARIA ANTONIA murmur rubs or gallops. Lungs: Clear to auscultation anterior perspective. Abdomen: Obese, soft, nondistended. Extremities: No clubbing, cyanosis. Edema is resolved. 1+ peripheral pulses. Neuro: Awake, alert, oriented 3. Speech is fluent. Cranial nerves are grossly intact. Skin: Dressings are rewrapped in the room. Results Laboratory Results: 10/25/16 03:57 10/26/16 06:00 10/20/16 10/20/16 10/20/16 11:05 16:48 22:52 Troponin I < 0.012 < 0.012 < 0.012 Impressions: Lower Extremity CT 10/15/16 00:00 IMPRESSION: There is superficial soft tissue stranding in the subcutaneous fat which could represent edematous or inflammatory changes. There appears to be some associated skin thickening. The appearance is consistent with a cellulitis. No discrete fluid collections are identified to suggest an abscess collection. Other findings as noted above Chest X-Ray 10/22/16 06:00 IMPRESSION: NO CHANGE IN APPEARANCE OF THE CHEST. Assessment & Plan - Diagnosis (1) Acute on chronic respiratory failure with hypoxemia Is this a current diagnosis for this admission?: YesPlan: his respiratory failure is multifactorial from obesity hypoventilation syndrome , heart failure, underlying COPD. the patient is still refusing breathing treatments. He is now refusing oxygen. Pulmonology is following. (2) Leg wound, right Plan: Change current antibiotics to clindamycin.. We will try her best to continue wound care with Santyl and dressings as the patient will allow. (3) Obesity hypoventilation syndrome Is this a current diagnosis for this admission?: YesPlan: the patient likely needs a trach. However he is refusing this. (4) Diastolic CHF Qualifiers: Congestive heart failure chronicity: acute on chronic Qualified Code (s): I50.33 - Acute on chronic diastolic (congestive) heart failure Is this a current diagnosis for this admission?: YesPlan: Continue Bumex as ordered. (5) Morbid obesity with BMI of 50.0-59.9, adult Is this a current diagnosis for this admission?: YesPlan: 2 dietary changes is recommended. The patient's mother is under the impression that his antipsychotics are responsible for his obesity. Likely this can only account for few pounds. The patient's BMI is currently at 55 and not solely due to antipsychotics. Did be on a reduced calorie diet to exercise. (6) AUTUMN (obstructive sleep apnea) Is this a current diagnosis for this admission?: YesPlan: Receiving bilevel Pap. (7) Schizo-affective schizophrenia Plan: The patient has not been taking his antipsychotic medications. Continue antipsychotic. Psych consult was placed for evaluation of mental capacity. - Time Time Spent with patient: 15-24 minutes Anticipated discharge: SNF Within: within 48 hours - Inpatient Certification Medical Necessity: Need Close Monitoring Due to Risk of Patient Decompensation
[2016-10-27] MEDS: CLINDAMYCIN HCL 150 MG CAPSULE PO SCH ×2 (14:10→21:10)
[2016-10-27] MEDS: INSULIN LISPRO 100 UNIT/ML 3 ML VIAL SUBCUT PRN (18:29)
[2016-10-27] MEDS: MONTELUKAST SODIUM 10 MG TABLET PO SCH (21:10)
[2016-10-27] MEDS: WARFARIN SODIUM 7.5 MG TABLET PO SCH (21:10)
[2016-10-28] MEDS: CLINDAMYCIN HCL 150 MG CAPSULE PO SCH ×2 (05:13→13:47)
[2016-10-28 08:24] LABS: PROTHROMBIN TIME 26.6 SEC (11.4-15.4)
[2016-10-28] MEDS: BREXPIPRAZOLE 2 MG PO SCH (09:50)
[2016-10-28] MEDS: NIFEDIPINE 30 MG TAB.ER.24 PO SCH (09:50)
[2016-10-28] MEDS: CARVEDILOL 12.5 MG TABLET PO SCH (09:50)
[2016-10-28] MEDS: GLIMEPIRIDE 1 MG TABLET PO SCH ×2 (09:51→17:38)
[2016-10-28] MEDS: LACTOBACILLUS ACIDOPHILUS 250 MG TAB PO SCH ×2 (09:51→17:38)
[2016-10-28] MEDS: DOCUSATE SODIUM 100 MG CAPSULE PO SCH ×2 (09:52→17:37)
[2016-10-28] MEDS: BUMETANIDE 1 MG TABLET PO SCH ×2 (09:52→17:38)
--- NOTE | 2016-10-28 11:20 | PDOC DISCHARGE SUMMARY ---
General - Admit/Disc Date/PCP Admission Date/Primary Care Provider: 10/09/16 09:34 Discharge Date: 10/28/16 - Discharge Diagnosis (1) Acute on chronic respiratory failure with hypoxemia Is this a current diagnosis for this admission?: Yes Summary: Resolved. Although the patient is at risk for bouncing back. We believe that he is in need of a trach because of his respiratory failure and obesity hypoventilation syndrome. However, the patient has respectfully declined. He was evaluated by the pulmonology service as well as the surgical service for this procedure. The patient has refused to continue any nebulizer treatments. Hopefully he will at least take his various inhalers that have been prescribed. 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 (2) Leg wound, right Summary: Continue wound care with Santyl and daily dressings. (3) Obesity hypoventilation syndrome Is this a current diagnosis for this admission?: Yes Summary: Weight loss through dietary changes is recommended. Management of pulmonary status as per #1. (4) Diastolic CHF Is this a current diagnosis for this admission?: Yes Summary: Continue diuresis. (5) Morbid obesity with BMI of 50.0-59.9, adult Is this a current diagnosis for this admission?: Yes Summary: Weight loss through dietary changes and exercise as tolerated. (6) AUTUMN (obstructive sleep apnea) Is this a current diagnosis for this admission?: Yes Summary: Continue nightly CPAP/bilevel Pap. (7) Schizo-affective schizophrenia Summary: Continue antipsychotic. (8) Generalized weakness Summary: The patient received physical therapy here. He will need continued physical therapy at the snf. - Additional Information Resuscitation Status: Full Code Discharge Diet: Diabetic - Plan probably contaminate you for gram-positive or gram-negative probably a contaminant so on the blood culture so okay of the blood cultures no is still has a mid Discharge Activity: Activity As Tolerated, Balance Activity w/Rest, Weigh Daily Home Medications: Aspirin [Aspirin 81 mg Chewable Tablet] 81 mg PO DAILY 10/10/16 Brexpiprazole [Rexulti] 2 mg PO DAILY 10/10/16 Bumetanide [Bumex 1 mg Tablet] 1 mg PO BID 10/10/16 Diphenhydramine HCl [Banophen] 25 mg PO Q6HP PRN 10/10/16 Glimepiride [Amaryl] 2 mg PO BID 10/10/16 Gluc/Andi-MSM#1/Vit C/[place]/Bor [Gqvctdk-Djfvb-BCP Complex Cplt] 2 tab PO BID 09/21 Insulin Aspart [Novolog Flexpen] 0 unit SUBCUT .SLD SCALE 10/10/16 Ketoconazole 1 applic TOP BIDP PRN 10/10/16 Metformin HCl [Glucophage] 1,000 mg PO BIDACBS 10/10/16 Nifedipine [Nifedipine ER] 90 mg PO Q12 10/10/16 [place]-3 Acid Ethyl Esters [Lovaza 1 gm Capsule] 2 gm PO BID 10/10/16 Turmeric/Turmeric Root Extract [Turmeric 500 mg Capsule] 1,000 mg PO BID Vitamin B Complex [B Complex] 1 cap PO BID 10/10/16 Carvedilol [Coreg 12.5 mg Tablet] 12.5 mg PO Q12 #60 tablet 10/28/16 Citalopram Hydrobromide [Celexa 20 mg Tablet] 20 mg PO NOON tablet 10/28/16 Clindamycin HCl [Cleocin 150 mg Capsule] 300 mg PO Q8 #21 capsule 10/28/16 Collagenase Clostridium Hist. [Santyl Ointment 30 gm] 1 applic TOP DAILY@1300 # 1 tube 10/28/16 Docusate Sodium [Colace 100 mg Capsule] 100 mg PO BID capsule 10/28/16 Fluticasone Propionate [Flonase Nasal [place] 50 Mcg/[place] 16 gm] 2 spray NASL NOON #1 spray.pump 10/28/16 Montelukast Sodium [Singulair 10 mg Tablet] 10 mg PO QHS #30 tablet 10/28/16 Warfarin Sodium [Coumadin 7.5 mg Tablet] 7.5 mg PO QHS 30 Days tablet 10/28/16 History of Present Illness History of Present Illness: HPI as per admitting physician: History of Present Illness Admission Date/PCP: 10/09/16 09:34 Patient complains of: Right lower leg cellulitis History of Present Illness: KI Vincent DAVIS JR is a 60 year old male with past medical history of diabetes mellitus type 2, morbid obesity, lower extremity DVT, COPD, not on home oxygen, Schizophrenia, depression and lower extremity dermatitis. H with complaints of right lower extremity e presents to [facility] emergency department redness and generalized body aches. He denies any fevers or chills. He states the erythema of the right lower extremity began 24 hours ago and has significantly worsened. He denies any trauma to the lower extremity. He has chronic venous stasis changes in both lower extremities as well as history of bilateral DVTs. He is presently on warfarin with subtherapeutic INR. He verbalizes no other complaints at the present time. He denies any shortness of breath or dyspnea. He denies any chest pain. Hospital course as per Dr. Odom: hospital course: per other's notes - "KI DAVIS JR is a 60 year old male with past medical history of diabetes mellitus type 2, morbid obesity, lower extremity DVT, COPD, not on home oxygen,Schizophrenia, depression and lower extremity dermatitis. H with complaints of right lower extremity e presents to [facility] emergency department redness and generalized body aches. He denies any fevers or chills. He states the erythema of the right lower extremity began 24 hours ago and has significantly worsened. He ( initially) denies any trauma to the lower extremity. He has chronic venous stasis changes in both lower extremities as well as history of bilateral DVTs. He is presently on warfarin with subtherapeutic INR. He verbalizes no other complaints at the present time. He denies any shortness of breath or dyspnea. He denies any chest pain." he was admitted and started on broad spectrum abx with little improvement, blisters continue to form and leg is weeping more with clear yellow, sticky fluid saturating the bed and dripping onto the floor when in dependent position. His mother confronted me in the uriostegui to inform me that his right foot fell through the floor of his home about a month ago leaving a deep scrape that he refused to seek treatment of, choosing instead to treat with soaks and salves at home until finally presenting to the ED this admit. he c/o pain in the leg as sharp, stabbing in the calf radiating up in to his hip and down into his foot, worse with palpation, constant. his leg continues to weep, saturating several bandages per day with full thickness blisters covering most of the leg. A zinc impregnated bandage (varicex) applied 10/18 by the nurse but overnight the patient states "it fell off" and nursing reports he "ripped it off" during the night. He tells me the nurse took it off last night. Bottom line is he wouldn't tolerate the dressing and so now covered in Santyl and wrapped in layers with tegasorb, coban and junior wrap which remain dry and intact. he spiked a fever 10/19 to 101.8 but says he "didn't feel it", repeat culxs of blood and urine show no growth; stat cxr just showed cardiomegaly and vasc congestion. Morning of 10/20 around 10:30 he suddenly became very SOA with increased WOB that he states is because his nurse made him sit upright in the bed, he "breathes better when lying flat". he has refused his scheduled nebs at times and refused to come off his nasal bipap or get out of the bed for reasons that are not clear to me. Nevertheless, rapid response called and I arrived to find him struggling to breathe, diaphoretic, hyperemic and panicked with sats on high flow O2 of only 71%. He was moved to the ICU and stat CXR showed worsening vascular congestion with developing pulm edema. he received IV lasix and diuresed about a liter of fluid. He is resting much more comfortably on full mask BiPAP with FiO2 of only 40%, ceja placed for strict I/O's. Dr Larson consulted and is recommending trach and home vent/NIPPV for his OHVS and AUTUMN. he denies chest pain or palpitations, n/v/d. states his leg itches and he wants the bandage off. I removed and debrided loose, necrotic epidermis revealing some underlying granuloma tissue but some of the tissue debrides too deeply and oozes blood. will need surgical consult for further, more controlled debridement. ROS: all systems reviewed, see above, remaining systems negative. Hospital Course Hospital Course: Continued hospital course: The patient was admitted to the hospital. Ultimately he was admitted to the ICU for acute on chronic respiratory failure. He required bilevel Pap. It was recommended that the patient undergo trach. However, he declined this. The patient also was not very cooperative about taking breathing treatments. He felt that the breathing treatments were the reason why he ended up in the hospital with respiratory distress in the first place. He stated that he had taken 44 breathing treatments over the period of 11 days and that this is why he could not breathe. The patient also declined being placed in reverse Trendelenburg to help with his respiratory status stating that he breathes much better in a supine position. The patient inevitably was able to be weaned off of bilevel Pap during the day. While here he received aggressive diuresis. Surgical consult was also placed for the possibility of trach but again the patient declined. It was noted that the patient was not taking his antipsychotic medications while here in the hospital. There is discrepancy as to whether or not he was taking it at all at home. The patient states that he was however his family has doubts about that. His father brought in his antipsychotic medication and the patient was provided with this for the last week of his stay here. He was able to be transitioned to [facility] level care. There he was maintained on nightly BiPAP. He did well working with physical therapy. He is currently stable and fit to be discharged to SNF. The patient prior to this was living alone in a home owned by his parents and next door to where his parents live. They were watching after him. His parents are in their 80s and at this point they feel it is unsafe for him to be in the home. They are in agreement with him going to rehab prior to going back home. Physical Exam Vital Signs: Temp Pulse Resp BP Pulse Ox 98.1 F 65 16 149/69 H 97 10/28/16 07:18 10/28/16 07:18 10/28/16 07:18 10/28/16 07:18 10/28/16 07:18 Intake & Output 10/27/16 10/28/16 10/29/16 06:59 06:59 06:59 Intake Total 3852 2996 Balance 3852 2996 Weight 181.2 kg 182.1 kg General: This is a well-developed, well-nourished morbidly obese white male resting in bed currently on CPAP Heart: Regular rate and rhythm 2/6 MARIA ANTONIA murmur rubs or gallops. Lungs: Clear to auscultation anterior perspective. Abdomen: Obese, soft, nondistended. Extremities: No clubbing, cyanosis. No edema. 1+ peripheral pulses. Neuro: Awake, alert, oriented 3. Speech is fluent. Cranial nerves are grossly intact. Skin: Dressings are slouched down and need to be rewrapped. But the wound looks clean and dry. Results Laboratory Results: 10/25/16 03:57 10/26/16 06:00 10/20/16 10/20/16 10/20/16 11:05 16:48 22:52 Troponin I < 0.012 < 0.012 < 0.012 Impressions: Lower Extremity CT 10/15/16 00:00 IMPRESSION: There is superficial soft tissue stranding in the subcutaneous fat which could represent edematous or inflammatory changes. There appears to be some associated skin thickening. The appearance is consistent with a cellulitis. No discrete fluid collections are identified to suggest an abscess collection. Other findings as noted above Chest X-Ray 10/22/16 06:00 IMPRESSION: NO CHANGE IN APPEARANCE OF THE CHEST. Qualifiers PATEINT BEING DISCHARGED WITH ANY OF THE FOLLOWING DIAGNOSIS?: No Plan Time Spent: Greater than 30 Minutes
[2016-10-28] MEDS: FLUTICASONE NASAL SPRAY 50 MCG/SPRY 120 SPRAY/16 GM NASL SCH (12:58)
[2016-10-28] MEDS: CETIRIZINE 10 MG TABLET PO SCH (12:58)
[2016-10-28] MEDS: CITALOPRAM HYDROBROMIDE 20 MG TABLET PO SCH (12:58)
[2016-10-28] MEDS: COLLAGENASE CLOSTRIDIUM HIST. OINT 30 GM TOP SCH (12:58)
--- NOTE | 2016-10-28 15:51 | PDOC PROGRESS REPORT ---
Subjective Progress Note for:: 10/24/16 Subjective:: doing well per patient Physical Exam Vital Signs: Temp Pulse Resp BP Pulse Ox 98.4 F 68 17 143/73 H 98 10/24/16 03:51 10/23/16 19:49 10/24/16 06:30 10/24/16 06:03 10/24/16 03:51 Intake & Output 10/23/16 10/24/16 10/25/16 06:59 06:59 06:59 Intake Total 1167 9412 Output Total 5391 1888 Balance -1459 -7176 Weight 182.7 kg 181.9 kg General appearance: PRESENT: no acute distress, cooperative, disheveled, morbidly obese, well-developed Head exam: PRESENT: atraumatic, normocephalic Eye exam: PRESENT: conjunctiva pale, EOMI Mouth exam: PRESENT: dry mucosa, neck supple, tongue midline Neck exam: ABSENT: carotid bruit, JVD, lymphadenopathy, thyromegaly Respiratory exam: PRESENT: decreased breath sounds, prolonged expiratory phas, rhonchi, symmetrical, unlabored Cardiovascular exam: PRESENT: RRR, +S1, +S2 Pulses: PRESENT: normal radial pulses GI/Abdominal exam: PRESENT: normal bowel sounds, soft. ABSENT: distended, guarding, mass, organolmegaly, rebound, tenderness Rectal exam: PRESENT: deferred Extremities exam: PRESENT: +2 edema Neurological exam: PRESENT: alert, awake Psychiatric exam: PRESENT: flat affect Skin exam: PRESENT: dry, warm Results Laboratory Results: 10/24/16 04:08 10/24/16 04:08 10/24/16 10/24/16 10/24/16 03:45 04:08 04:08 WBC 8.1 RBC 4.08 L Hgb 11.5 L Hct 34.5 L MCV 85 MCH 28.1 MCHC 33.2 RDW 15.0 H Plt Count 341 Seg Neutrophils % 68.8 Lymphocytes % 15.7 Monocytes % 9.3 Eosinophils % 4.1 Basophils % 2.1 H Absolute Neutrophils 5.6 Absolute Lymphocytes 1.3 Absolute Monocytes 0.8 Absolute Eosinophils 0.3 Absolute Basophils 0.2 Carbonic Acid 1.49 H HCO3/H2CO3 Ratio 23:1 ABG pH 7.46 H ABG pCO2 49.5 H ABG pO2 110.6 H ABG HCO3 34.7 H ABG O2 Saturation 98.2 H ABG Base Excess 9.6 FiO2 30% Sodium 139.1 Potassium 3.8 Chloride 98 Carbon Dioxide 32 H Anion Gap 9 BUN 16 Creatinine 0.98 Est GFR ( Amer) > 60 Est GFR (Non-Af Amer) > 60 Glucose 116 H Calcium 8.9 Magnesium 2.0 10/20/16 10/20/16 10/20/16 11:05 16:48 22:52 Troponin I < 0.012 < 0.012 < 0.012 Impressions: Lower Extremity CT 10/15/16 00:00 IMPRESSION: There is superficial soft tissue stranding in the subcutaneous fat which could represent edematous or inflammatory changes. There appears to be some associated skin thickening. The appearance is consistent with a cellulitis. No discrete fluid collections are identified to suggest an abscess collection. Other findings as noted above Chest X-Ray 10/22/16 06:00 IMPRESSION: NO CHANGE IN APPEARANCE OF THE CHEST. Assessment & Plan - Diagnosis (1) Obesity hypoventilation syndrome Is this a current diagnosis for this admission?: Yes (2) Diastolic CHF Qualifiers: Congestive heart failure chronicity: acute on chronic Qualified Code (s): I50.33 - Acute on chronic diastolic (congestive) heart failure Is this a current diagnosis for this admission?: Yes (3) History of pulmonary embolism Is this a current diagnosis for this admission?: Yes (4) Morbid obesity with BMI of 50.0-59.9, adult Is this a current diagnosis for this admission?: Yes (5) AUTUMN (obstructive sleep apnea) Is this a current diagnosis for this admission?: Yes (6) Acute on chronic respiratory failure with hypoxemia Is this a current diagnosis for this admission?: Yes
--- NOTE | 2016-10-28 15:52 | PDOC PROGRESS REPORT ---
Subjective Progress Note for:: 10/28/16 Subjective:: Electively wearing his BiPAP at this time Physical Exam Vital Signs: Temp Pulse Resp BP Pulse Ox 98.1 F 65 16 149/69 H 97 10/28/16 07:18 10/28/16 07:18 10/28/16 07:18 10/28/16 07:18 10/28/16 07:18 Intake & Output 10/27/16 10/28/16 10/29/16 06:59 06:59 06:59 Intake Total 3852 2996 Balance 3852 2996 Weight 181.2 kg 182.1 kg General appearance: PRESENT: no acute distress, cooperative, disheveled, morbidly obese, well-developed Head exam: PRESENT: atraumatic, normocephalic Eye exam: PRESENT: conjunctiva pale Mouth exam: PRESENT: dry mucosa, neck supple, tongue midline Neck exam: ABSENT: carotid bruit, JVD, lymphadenopathy, thyromegaly Respiratory exam: PRESENT: decreased breath sounds, prolonged expiratory phas, symmetrical Cardiovascular exam: PRESENT: RRR, +S1, +S2 Pulses: PRESENT: normal radial pulses GI/Abdominal exam: PRESENT: normal bowel sounds, soft. ABSENT: distended, guarding, mass, organolmegaly, rebound, tenderness Rectal exam: PRESENT: deferred Extremities exam: PRESENT: +2 edema Neurological exam: PRESENT: alert, awake Psychiatric exam: PRESENT: normal mood Skin exam: PRESENT: dry, warm Results Laboratory Results: 10/25/16 03:57 10/26/16 06:00 10/20/16 10/20/16 10/20/16 11:05 16:48 22:52 Troponin I < 0.012 < 0.012 < 0.012 Impressions: Lower Extremity CT 10/15/16 00:00 IMPRESSION: There is superficial soft tissue stranding in the subcutaneous fat which could represent edematous or inflammatory changes. There appears to be some associated skin thickening. The appearance is consistent with a cellulitis. No discrete fluid collections are identified to suggest an abscess collection. Other findings as noted above Chest X-Ray 10/22/16 06:00 IMPRESSION: NO CHANGE IN APPEARANCE OF THE CHEST. Assessment & Plan - Diagnosis (1) Obesity hypoventilation syndrome Is this a current diagnosis for this admission?: Yes (2) Diastolic CHF Qualifiers: Congestive heart failure chronicity: acute on chronic Qualified Code (s): I50.33 - Acute on chronic diastolic (congestive) heart failure Is this a current diagnosis for this admission?: Yes (3) History of pulmonary embolism Is this a current diagnosis for this admission?: Yes (4) Morbid obesity with BMI of 50.0-59.9, adult Is this a current diagnosis for this admission?: Yes (5) AUTUMN (obstructive sleep apnea) Is this a current diagnosis for this admission?: Yes (6) Acute on chronic respiratory failure with hypoxemia Is this a current diagnosis for this admission?: Yes
[2016-10-28 16:21] VITALS: BP 141/70
--- NOTE | 2016-10-28 19:53 | PSYCHOLOGICAL NOTE ---
Psych Note - Psych Note Psych Note: Note: This is a Capacity Evaluation Patient is a 60-year-old male who presented to the [facility] emergency department on 10/09/2016 via EMS for fever, chills, and lower right leg pain. He was subsequently admitted for cellulitis of right lower extremity, leukocytosis, diabetes mellitus type II, dyslipidemia, hypertension, chronic obstructive pulmonary disease, diastolic congestive heart failure, history of pulmonary embolism, morbid obesity with BMI 50.0-59.9 Adult, and obstructive sleep apnea. His current problem list included 26 items. Patients medical insurance is Medicaid. Patient resides at his parents mobile home, they live next door to him. Patients parents identified the home needing fixed and cleaned before patient can return to it. They note he fell through the floor and scraped his leg so there is a hole in the floor. Parents denied being payee, having power of contract attorney or guardianship over patient. They stated they have tried to avoid that and are now well into their 80s so are tending to their own medical issues. Parents noted patient is and his ex- and daughter reside in [place]. Review of chart revealed Patients medical history is positive for diabetes mellitus II, congestive heart failure, coronary artery disease, deep vein thrombosis lower extremities (history of bilateral, chronic venous stasis), hypercholesterolemia, hypertension, pulmonary embolism, asthma, chronic obstructive pulmonary disease (no home oxygen), pneumonia, sleep apnea, hiatal hernia (abdominal surgery/hernia repair), vasectomy, oral surgery, orthopedic surgery (plate, screws, disc, bone graft on neck), tonsillectomy, anxiety, depression, posttraumatic stress disorder, and schizophrenia. Home medications include a list of 16 with Rexulti 2MG daily being the only psychiatric medication. While in the hospital he has been administered 24 medications. Of that the psychiatric medications include Rexulti 2MG daily and Celexa 20MG daily. He has been coming to [facility] since 2010, many appointments were for labs or REQ. He did have a possible overdose 12/31/2013. At that time, the Behavioral Health gift consultant conducted psychiatric evaluations and it was noted his mother stated patient had been diagnosed with schizophrenia since age 20. Patient reported he has been hospitalized 67 times for experimental reasons, the last time was at [facility] 2 years ago. A capacity evaluation was requested by the hospitalist due to medical staff ( refused tracheotomy) and parents (living conditions in the home, not tending to his medical issue of diabetes via poor eating) concerns for patients ability to live independently and care for self. The role of a capacity evaluation is to assess and measure a Patients abstract/rational level of thinking, executive functioning/planning/sequencing, executive functioning/ switching, attention, orientation, safety/problem solving, memory, ability to complete daily living activities, and safety awareness. During the capacity evaluation patient presented calm and cooperative. He answered questions when addressed. He remained lying in bed until the clock drawing exercise at which point he could move himself from a lying position into a sitting position on the side of the bed. He appeared restless as evidenced by his shaking leg. He was alert and oriented to person, place, time, and circumstance. Mood was euthymic with congruent affect. Patient denied current suicidal / homicidal ideations and no statements or gestures were made regarding suicidal and homicidal intent or plan. He did not appear to be responding to internal stimuli as evidenced by fair eye contact, answering questions with appropriate responses, and staying on topic. Thought processes were linear, logical, organized, and abstract. Conversational speech was low in tone, and within normal limits for rate and prosody. Intellectual abilities were estimated within the average range. Insight, judgment, and impulse control were fair as evidenced by his knowledge of his medications and medical conditions. Patient correctly answered 9 of 11 orientation questions. He incorrectly answered date as the and day of the week as . He was a day off on each, however he has been in the hospital since 10/09/2016. Patient correctly answered 3 of 3 higher cortical abstract reasoning questions in which Patient is required to describe how two items are similar. These results suggested grossly intact abstract thinking abilities with the capacity to employ skills necessary to navigate the nuances of conversation and activities. Patient repeated the name of 3-common objects after examiner instruction, and could recall 2 of the 3 items after both 1 and 5-minute delays (car, [place], and then referenced a word from a latter task). He accurately spelled the word world forward but not backwards since he said [id number] however he recognized immediately that he mixed up the o and r. Patients problem solving for questions regarding personal safety or the safety of others was fair given he had 50% accuracy. He stated he would pull the plunger if he came home and found his bathroom flooding. He stated he would call 9-1-1 if he saw smoke coming from his neighbors house. The Patient was administered the Clock Drawing Test, a standardized and peer reviewed measure of dementia. He was given instructions to draw the face of a clock with all its numbers and place the hands at 10 minutes before 11. He rhett a medium [place] in the upper center portion of the page (portrait layout). He used anchor numbers starting with 12, 6, 3, and then 9. He then began putting in the other numbers starting with 1 and going clockwise. He put the hands at an appropriate position with one slightly longer than the other. He was quick to complete this task. He began before verbal instructions were concluded. In terms of his ability to complete tasks of everyday living (e.g., mobility, bathing, cooking, grocery shopping, taking medications appropriately, etc.), the clinician observed Patient position himself from a lying position to a sitting position. He stated he has been walking to the restroom and today walked down the hallway for physical therapy. He identified he had a rolling walker but had to hold it so it would not be in the way. Patient reported he can dress and bathe himself. He identified he takes showers at least twice a week, Saturdays and Wednesdays. Patient could manipulate a pen for the clock drawing (similar to eating utensil manipulation). 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 He stated he could cook for himself, identified the last thing he cooked was a microwavable sausage, egg and cheese croissant. He reported he often eats microwavable meals. Patient could provide medication names, often both the generic and name brand of the medication, what they were meant to treat, and was adamant he takes his medications everyday as prescribed. His parents reported patient is currently in debt, has no money in his bank, recently had his electricity shut off due to non-payment, and father paid the electricity bill. Impression: The Patient is a 60-year-old male with a history of Schizophrenia, which is considered a Serious Persistent Mental Illness (SPMI). He has been to the [facility] Emergency Department (ED) 5 times this year mainly for labs, once for breathing problems, and currently for cellulitis. Patient stated he was a heavy drinker ( drank a 6 pack of beer for breakfast, each day over the weekend would drink 25- 30 beers) until age 19 when he was prescribed Thorazine which took away his desire to drink. He reported taking Geodon from 1989 until last year when his doctor said he didnt need to take it any longer. He reported JEFE Hall at [facility] is his provider for medication management and he is currently prescribed Rexulti, an antidepressant that is also a mild antipsychotic. He talked about communist regimes and how it relates to the Bible and democracy when questioned about mental health. He stated mental health is about external forces. This language and perseverative thinking suggests managed delusions which are not interfering with his ability to care for self, and are often seen in medication compliant patients with Schizophrenia. Concerns center around his physical ability to care for self per parents reports of being in debt, falling through the floor of the home causing a hole in the floor and a scrape on patients leg which now has cellulitis, his unmanaged diabetes (per patient, parents, and lab work), and multiple medical issues. Overall, results of the current evaluation revealed good orientation to present and items of knowledge, abstract thinking patterns, fair memory, good sequencing , good organizational abilities, fair safety and problem solving, and an inability to complete own ADLs. He has a chronic mental health diagnosis of Schizophrenia that can be managed with medication. Subsequently, when medicated the patients insight, judgment, and impulse control are manageable and at a baseline where he can safely navigate his environment or make decisions that are in his best interest. It is with a reasonable degree of medical and clinical certainty, the Patient would benefit from a responsible and reliable payee to manage his medical, financial, legal, and personal affairs. His reported diagnosis of Schizophrenia along with multiple medical issues that are currently managed well, will likely deteriorate as he ages and negatively impact his overall abilities to manage independently and remain safe in his home. Thus, it is recommended the patient have In-Home Health to assist with everyday living and needs, and a responsible Payee to manage his finances. The following diagnoses are offered: DIAGNOSES: 1. 295.90 (F20.9) Schizophrenia 2. Cellulitis of lower right extremity 3. Leukocytosis 4. R/O Unspecified Neurocognitive Disorder RECOMMENDATIONS: 1. A responsible and reliable payee is recommended to manage the Patients financial affairs. 2. Continued psychiatric consultation with a provider is recommended to manage reported and documented Schizophrenia Disorder. 3. Head CT if possible given patients obesity and airway restriction. 4. Neurological consultation with a provider is recommended since prolonged use of medications utilized to treat SPMI can result in neurodegenerative processes, as well as Patients chronic and significant consumption of alcohol over time. 5. Patient would benefit from In-Home Health where he can maintain independence while ensuring his basic needs are being met. Consulted with Dr. Hirsch regarding this capacity evaluation and she is in agreement with the findings and recommendations.
== END 2016-10-28 18:30 | DRG 602 ==
LOC: ER 01:01 → EH 09:34 → UNDOADMIN 09:42 → EH 09:42 → 4N 11:47 → ICU 10-20 10:31 → 3N 10-24 16:28
PROVIDERS: ADMIT Family Medicine; ATTEND Family Medicine
PROC: 5A09357 Assistance with Respiratory Ventilation, Less than 24 Consecutive Hours, Continuous Positive Airway Pressure (ICD-10-PCS; principal; 2016-10-09)
PROC: 3E0F73Z Introduction of Anti-inflammatory into Respiratory Tract, Via Natural or Artificial Opening (ICD-10-PCS; 2016-10-09)
DX: L03.115 Cellulitis of right lower limb (principal); J96.21 Acute and chronic respiratory failure with hypoxia; I50.33 Acute on chronic diastolic (congestive) heart failure; E66.2 Morbid (severe) obesity with alveolar hypoventilation; Z68.43 Body mass index [BMI] 50.0-59.9, adult; E87.1 Hypo-osmolality and hyponatremia; I11.0 Hypertensive heart disease with heart failure; F25.9 Schizoaffective disorder, unspecified; E11.9 Type 2 diabetes mellitus without complications; J44.9 Chronic obstructive pulmonary disease, unspecified; I87.8 Other specified disorders of veins; R79.1 Abnormal coagulation profile; K44.9 Diaphragmatic hernia without obstruction or gangrene; F32.9 Major depressive disorder, single episode, unspecified; F43.10 Post-traumatic stress disorder, unspecified; E11.51 Type 2 diabetes mellitus with diabetic peripheral angiopathy without gangrene; F41.9 Anxiety disorder, unspecified; Z53.29 Procedure and treatment not carried out because of patient's decision for other reasons; Z86.718 Personal history of other venous thrombosis and embolism; Z79.82 Long term (current) use of aspirin; Z79.01 Long term (current) use of anticoagulants; Z79.4 Long term (current) use of insulin; Z79.899 Other long term (current) drug therapy; Z86.711 Personal history of pulmonary embolism; Z88.8 Allergy status to other drugs, medicaments and biological substances; Z88.6 Allergy status to analgesic agent; Z88.0 Allergy status to penicillin; Z88.2 Allergy status to sulfonamides; Z83.3 Family history of diabetes mellitus; Z82.49 Family history of ischemic heart disease and other diseases of the circulatory system
CPT/HCPCS: 36415; 71010; 71020; 80048; 80053; 80202; 82550; 82565; 82803; 82962; 83735; 83930; 84484; 85025; 85610; 85730; 86140; 87040; 87070; 87086; 87205; 93005; 93010; 93971; 94640; 94660; 96365; 99285; G8978-GP; G8979-GP; J0692; J1650; J1815; J1940; J2930; J3370; J3490; J7030; J7060; J7614; J7620

== ENCOUNTER → 2016-12-05 | Outpatient (CLI) | payer MEDICARE, MEDICAID ==
[2016-12-05 09:03] LABS: APPEARANCE,URINE CLEAR; BILIRUBIN,URINE NEGATIVE (NEGATIVE); GLUCOSE, URINE NEGATIVE (NEGATIVE); KETONES,URINE NEGATIVE (NEGATIVE); LEUKOCYTE ESTERASE,URINE TRACE (NEGATIVE); NITRITE,URINE NEGATIVE (NEGATIVE); PROTEIN,URINE NEGATIVE (NEGATIVE); URINE SPECIFIC GRAVITY 1.009; UROBILINOGEN,URINE NEGATIVE mg/dL (<2.0)
[2016-12-05 09:04] LABS: PROTHROMBIN TIME 13.4 SEC (11.4-15.4)
[2016-12-05 09:23] LABS: ALANINE AMINOTRANSFERASE 40 U/L (21-72); ALBUMIN 4.1 g/dL (3.5-5.0); ALKALINE PHOSPHATASE 96 U/L (38-126); ANION GAP 14 (5-19); ASPARTATE AMINO TRANSFERASE 27 U/L (17-59); BILIRUBIN,DIRECT 0.5 mg/dL (0.0-0.4); BILIRUBIN,TOTAL 0.8 mg/dL (0.2-1.3); BLOOD UREA NITROGEN 39 mg/dL (7-20); CALCIUM 10.1 mg/dL (8.4-10.2); CARBON DIOXIDE 33 mmol/L (22-30); CHLORIDE 94 mmol/L (98-107); CREATININE RESULT 1.23 mg/dL (0.52-1.25); Direct HDL 47 mg/dL (>40); GLUCOSE 138 mg/dL (75-110); POTASSIUM 3.4 mmol/L (3.6-5.0); SODIUM 140.6 mmol/L (137-145); TOTAL PROTEIN 8.1 g/dL (6.3-8.2); TRIGLYCERIDES 128 mg/dL (<150)
[2016-12-05 09:33] LABS: DIRECT LDL 107 mg/dL (<100)
[2016-12-06 11:40] LABS: CREATININE URINE 66.7 mg/dL (Not Estab.); MICROALBUMIN URINE 27.1 ug/mL (Not Estab.)
== END ==
LOC: OD 07:14
PROVIDERS: ATTEND Internal Medicine Nephrology
DX: E11.9 Type 2 diabetes mellitus without complications (principal); E78.2 Mixed hyperlipidemia; I82.409 Acute embolism and thrombosis of unspecified deep veins of unspecified lower extremity
CPT/HCPCS: 36415; 80053; 80061; 81001; 82043; 82570; 83036; 85610

== ENCOUNTER → 2016-12-11 | Outpatient (CLI) | payer MEDICARE, MEDICAID ==
[2016-12-11 15:56] LABS: PROTHROMBIN TIME 15.2 SEC (11.4-15.4)
== END ==
LOC: OD 14:45
PROVIDERS: ATTEND Internal Medicine Nephrology
DX: I82.409 Acute embolism and thrombosis of unspecified deep veins of unspecified lower extremity (principal); Z92.29 Personal history of other drug therapy; Z86.711 Personal history of pulmonary embolism
CPT/HCPCS: 36415; 85610

== ENCOUNTER → 2016-12-17 | Outpatient (CLI) | payer MEDICARE, MEDICAID ==
[2016-12-17 14:12] LABS: PROTHROMBIN TIME 18.3 SEC (11.4-15.4)
== END ==
LOC: OD 12:36
PROVIDERS: ATTEND Internal Medicine Nephrology
DX: I82.409 Acute embolism and thrombosis of unspecified deep veins of unspecified lower extremity (principal); Z86.711 Personal history of pulmonary embolism; Z92.29 Personal history of other drug therapy
CPT/HCPCS: 36415; 85610

== ENCOUNTER → 2016-12-17 | Outpatient (CLI) | payer MEDICARE, MEDICAID ==
--- NOTE | 2016-12-20 09:59 | XCELERA REPORT ---
[address] [address] Lower Extremity Arterial Evaluation Name: KI DAVIS JR Age: 61 yrs Gender: Male : 1955 Patient Status: Outpatient Patient Location: Study Date: 12/17/2016 10:05 AM Procedure: A color flow and duplex scan of the lower extremity arteries was performed bilaterally with velocity and waveform anaylsis. Reason For Study: ULCER Ordering Physician: EDGARDO BRO Performed By: Rosemarie Garcia Measurements and Calculations Right Left ANIMAL NURSE PSV 127.5 155.4 cm/sec Prox PFA PSV -84.4 93.2 cm/sec Prox SFA PSV 112.5 114.1 cm/sec Mid SFA PSV -105.3 -125.2 cm/sec Dist SFA PSV -75.5 cm/sec Prox Pop A PSV 36.2 95.4 cm/sec Dist MIKEY PSV 91.9 86.0 cm/sec Dist INSPECTOR [employer]CH[employer]ED [employer]S PSV 69.5 40.7 cm/sec Max Pedis PSV 84.7 86.9 cm/sec Right Side Arterial Evaluation Normal velocity and triphasic waveforms noted from the Common Femoral artery to the Anterior and Posterior Tibial arteries. Biphasic in the Dorsalis Pedis. 0-19% stenosis at the Dorsalis Pedis artery. Ankle Brachial index was not obtainable, the patient could not tolerate it. Left Side Arterial Evaluation Normal velocity and triphasic waveforms noted from the Common Femoral artery to the infrageniculate vessels. 0 % stenosis noted. Ankle Brachial index was Not done, the patient could not tolerate the pressure.. Interpretation Summary Mild hemodynamically significant lesions in the right lower extremity only, on duplex imaging, at rest. No hemodynamically significant lesions in the left lower extremity only, on duplex imaging, at rest. : EDGARDO BRO > Christiano Camargo
--- NOTE | 2016-12-20 10:01 | XCELERA REPORT ---
[address] [address] Lower Extremity Venous Evaluation Name: KI DAVIS Vincent JR Age: 61 yrs Gender: Male : 1955 Patient Status: Outpatient Patient Location: Study Date: 12/17/2016 10:40 AM Procedure: A bilateral duplex scan of the lower extremity veins was performed. The evaluation included responses to compression and other maneuvers with patient in the supine and standing positions to assess venous insufficiency. Reason For Study: ULCER Ordering Physician: EDGARDO BRO Performed By: Rosemarie Garcia Right Sided Venous Evaluation Deep venous system evaluatiion shows patent veins with no obstruction or significant reflux identified. Sapheno Femoral junction: no reflux. Femoral vein reflux: no reflux. Greater Saphenous vein, Proximal thigh: reflux: no reflux. Greater Saphenous vein, Distal thigh: reflux: no reflux. Greater Saphenous vein, Proximal below knee: reflux: no reflux. No significant Perforators identified. Left Sided Venous Evaluation Deep venous system evaluatiion shows patent veins with no obstruction or significant reflux identified. Sapheno Femoral junction: no reflux. Femoral vein reflux: no reflux. Greater Saphenous vein, Proximal thigh: reflux: no reflux. Greater Saphenous vein, Distal thigh: reflux: no reflux. Greater Saphenous vein, Proximal below knee: reflux: no reflux. No significant Perforators identified. Interpretation Summary No duplex evidence of DVT or obstruction in the bilateral lower extremities. No deep or superficial reflux identified, on evaluation. : EDGARDO BRO [place]
== END ==
LOC: SP 09:56
PROVIDERS: ATTEND Nurse Practitioner Family
DX: L97.212 Non-pressure chronic ulcer of right calf with fat layer exposed (principal)
CPT/HCPCS: 93925; 93970

== ENCOUNTER 2017-01-23 02:13 | Emergency (ER) | payer MEDICARE, MEDICAID ==
--- NOTE | 2017-01-23 04:38 | ER Document Report ---
ED Medical Screen (RME) - General Chief Complaint: Leg Pain Stated Complaint: RIGHT LEG PAIN Time Seen by Provider: 01/23/17 04:17 Notes: 61-year-old male, chief complaint of discomfort to his right lower leg, swelling to both legs, swelling to the abdomen, general shortness of breath for the past few days. Denies chest pain, fever. States he has had cellulitis of the lower extremity several times. Denies pain into the leg but states it is itchy and starting to become red. He is on Coumadin, has a history of PE and DVT, states he just had an ultrasound. TRAVEL OUTSIDE OF THE [place] IN LAST 30 DAYS: No - Related Data Allergies/Adverse Reactions: amlodipine Allergy (Verified 04/26/16 12:11) benazepril [Benazepril] Allergy (Verified 04/26/16 12:11) clonidine Allergy (Verified 04/26/16 12:11) codeine [Codeine] Allergy (Verified 04/26/16 12:11) haloperidol [From Haldol] Allergy (Verified 04/26/16 12:11) minoxidil Allergy (Verified 04/26/16 12:11) nalbuphine Allergy (Verified 04/26/16 12:11) oxycodone Allergy (Verified 04/26/16 12:11) Penicillins Allergy (Verified 04/26/16 12:11) perphenazine Allergy (Verified 04/26/16 12:11) propoxyphene Allergy (Verified 04/26/16 12:11) Sulfa (Sulfonamide Antibiotics) Allergy (Verified 04/26/16 12:11) topiramate Allergy (Verified 04/26/16 12:11) trifluoperazine [From Stelazine] Allergy (Verified 04/26/16 12:11) Past Medical History - Past Medical History Cardiac Medical History: Reports: Hx Congestive Heart Failure, Hx Coronary Artery Disease, Hx DVT, Hx Hypercholesterolemia, Hx Hypertension, Hx Pulmonary Embolism Denies: Hx Atrial Fibrillation, Hx Heart Attack, Hx Peripheral Vascular Disease, Hx Heart Murmur Pulmonary Medical History: Reports: Hx Asthma, Hx COPD, Hx Pneumonia, Hx Sleep Apnea Denies: Hx Bronchitis, Hx Respiratory Failure, Hx Tuberculosis Neurological Medical History: Denies: Hx Cerebrovascular Accident, Hx Seizures Endocrine Medical History: Reports: Hx Diabetes Mellitus Type 2. Denies: Hx Graves' Disease, Hx Hyperthyroidism, Hx Hypothyroidism Renal/ Medical History: Denies: Hx Peritoneal Dialysis Malignancy Medical History: Denies Hx Leukemia, Denies Hx Lung Cancer GI Medical History: Reports: Hx Hiatal Hernia. Denies: Hx Crohn's Disease, Hx Gastroesophageal Reflux Disease, Hx Irritable Bowel, Hx Liver Failure, Hx Pancreatitis, Hx Ulcer Musculoskeltal Medical History: Denies Hx Arthritis, Denies Hx Fibromyalgia, Denies Hx Muscular Dystrophy Psychiatric Medical History: Reports: Hx Anxiety, Hx Depression, Hx Post Traumatic Stress Disorder, Hx Schizophrenia Denies: Hx Bipolar Disorder Traumatic Medical History: Reports: Hx Fractures Infectious Medical History: Denies: Hx HIV Past Surgical History: Reports: Hx Abdominal Surgery - hernia repair, Hx Cardiac Catheterization - 30% blockage, Hx Genitourinary Surgery - VASECTOMY, Hx Herniorrhaphy, Hx Oral Surgery - TOOTH EXTRACTION, Hx Orthopedic Surgery - PLATE SCREWS DISC AND BONE GRAFT: NECK, Hx Tonsillectomy. Denies: Hx Appendectomy, Hx Bowel Surgery, Hx Cholecystectomy, Hx Colostomy, Hx Coronary Artery Bypass Graft, Hx Gastric Bypass Surgery, Hx Pacemaker - Immunizations Hx Diphtheria, Pertussis, Tetanus Vaccination: No Physical Exam - Vital signs Vitals: Temp Pulse Resp BP Pulse Ox 99.2 F 66 20 148/77 H 97 01/23/17 02:21 01/23/17 02:21 01/23/17 02:21 01/23/17 02:21 01/23/17 02:21 - Respiratory Respiratory status: No respiratory distress Breath sounds: No: Decreased air movement, Wheezing - Extremities General lower extremity: Other - Warty appearance to both lower extremities with what appears to be chronic edema, there is some erythema on the right leg with excoriations and papules. No tenderness noted. Course - Vital Signs Vital signs: Temp Pulse Resp BP Pulse Ox 99.2 F 66 20 148/77 H 97 01/23/17 02:21 01/23/17 02:21 01/23/17 02:21 01/23/17 02:21 01/23/17 02:21
--- NOTE | 2017-01-23 05:01 | RADIOLOGY REPORT (SQ) ---
EXAM DESCRIPTION: CHEST SINGLE VIEW COMPLETED DATE/TIME: 01/23/2017 4:53 am REASON FOR STUDY: shortness of breath COMPARISON: Chest x-ray 10/22/2016. EXAM PARAMETERS: NUMBER OF VIEWS: One view. TECHNIQUE: Single frontal radiographic view of the chest acquired. RADIATION DOSE: NA LIMITATIONS: None. FINDINGS: LUNGS AND PLEURA: No consolidation, pneumothorax or pleural effusion. MEDIASTINUM AND HILAR STRUCTURES: No masses. Contour normal. HEART AND VASCULAR STRUCTURES: The heart is limit in size. No overt vascular congestion. BONES: No acute findings. HARDWARE: Orthopedic hardware at the lower cervical spine. IMPRESSION: No acute radiographic finding in the chest. TECHNICAL DOCUMENTATION: JOB ID: [id number]
[2017-01-23 05:17] LABS: ABSOLUTE BASOPHILS # (AUTO) 0.2 10^3/uL (0.0-0.2); ABSOLUTE EOSINOPHILS # (AUTO) 0.3 10^3/uL (0.0-0.6); ABSOLUTE LYMPHOCYTES (AUTO) 2.1 10^3/uL (0.5-4.7); ABSOLUTE MONOCYTES (AUTO) 0.7 10^3/uL (0.1-1.4); ABSOLUTE NEUT (AUTO) 5.4 10^3/uL (1.7-8.2); BASOPHILS % (AUTO) 1.8 % (0-2); EOSINOPHILS % (AUTO) 3.2 % (0-6); HEMOGLOBIN 13.2 g/dL (13.5-17.0); HGB HCT DIFFERENCE 2.6; LYMPHOCYTES % (AUTO) 23.9 % (13-45); MEAN CORPUSCULAR HEMOGLOBIN 29.2 pg (27.0-33.4); MEAN CORPUSCULAR HGB CONC 35.9 g/dL (32.0-36.0); MEAN CORPUSCULAR VOLUME 82 fl (80-97); MONOCYTES % (AUTO) 8.3 % (3-13); RED BLOOD COUNT 4.53 10^6/uL (4.35-5.55); RED CELL DISTRIBUTION WIDTH 15.5 % (11.5-14.0); SEGMENTED NEUTROPHILS % (AUTO) 62.8 % (42-78); WHITE BLOOD COUNT 8.6 10^3/uL (4.0-10.5)
[2017-01-23 05:25] LABS: PROTHROMBIN TIME 21.3 SEC (11.4-15.4)
[2017-01-23 06:28] LABS: ALANINE AMINOTRANSFERASE 40 U/L (21-72); ALBUMIN 4.1 g/dL (3.5-5.0); ALKALINE PHOSPHATASE 80 U/L (38-126); ANION GAP 13 (5-19); ASPARTATE AMINO TRANSFERASE 23 U/L (17-59); BILIRUBIN,DIRECT 0.4 mg/dL (0.0-0.4); BILIRUBIN,TOTAL 0.5 mg/dL (0.2-1.3); BLOOD UREA NITROGEN 28 mg/dL (7-20); CALCIUM 10.3 mg/dL (8.4-10.2); CARBON DIOXIDE 32 mmol/L (22-30); CHLORIDE 95 mmol/L (98-107); CREATINE KINASE 86 U/L (55-170); CREATININE RESULT 1.16 mg/dL (0.52-1.25); GLUCOSE 95 mg/dL (75-110); SODIUM 139.6 mmol/L (137-145); TOTAL PROTEIN 7.7 g/dL (6.3-8.2)
[2017-01-23 06:29] LABS: POTASSIUM 2.8 mmol/L (3.6-5.0)
[2017-01-23] MEDS ORDERED: POTASSIUM CHLORIDE 10 MEQ TABLET.SA PO ONE (06:31)
[2017-01-23] MEDS ORDERED: POTASSI CL 20 MEQ/50 ML RIDER 20 MEQ/50 ML RTUPB IV SCH (06:32)
[2017-01-23 06:39] LABS: CREATINE KINASE MB 0.82 ng/mL (<4.55)
[2017-01-23 06:40] LABS: TROPONIN I < 0.012 ng/mL
[2017-01-23] MEDS ORDERED: CLINDAMYCIN 300 MG/D5W RTU 300 MG/50 ML RTUPB IV ONE (07:51)
--- NOTE | 2017-01-23 07:54 | ER Document Report ---
ED General - General Chief Complaint: Leg Pain Stated Complaint: RIGHT LEG PAIN Time Seen by Provider: 01/23/17 04:17 Mode of Arrival: Medic Information source: Patient Notes: 61 yr old male presents with complaints of right lower extremity edema. Pt noted to have hx of cellulitis, chf and dvt. Pt denies any fevers or chills. denies any nausea or vomiting. TRAVEL OUTSIDE OF THE [place] IN LAST 30 DAYS: No - HPI Onset: Yesterday Onset/Duration: Sudden Quality of pain: Achy Severity: Mild Pain Level: 1 Associated symptoms: Leg swelling Exacerbated by: Denies Relieved by: Denies Similar symptoms previously: Yes Recently seen / treated by doctor: Yes - Related Data Allergies/Adverse Reactions: amlodipine Allergy (Verified 04/26/16 12:11) benazepril [Benazepril] Allergy (Verified 04/26/16 12:11) clonidine Allergy (Verified 04/26/16 12:11) codeine [Codeine] Allergy (Verified 04/26/16 12:11) haloperidol [From Haldol] Allergy (Verified 04/26/16 12:11) minoxidil Allergy (Verified 04/26/16 12:11) nalbuphine Allergy (Verified 04/26/16 12:11) oxycodone Allergy (Verified 04/26/16 12:11) Penicillins Allergy (Verified 04/26/16 12:11) perphenazine Allergy (Verified 04/26/16 12:11) propoxyphene Allergy (Verified 04/26/16 12:11) Sulfa (Sulfonamide Antibiotics) Allergy (Verified 04/26/16 12:11) topiramate Allergy (Verified 04/26/16 12:11) trifluoperazine [From Stelazine] Allergy (Verified 04/26/16 12:11) Past Medical History - Social History Smoking Status: Never Smoker Cigarette use (# per day): No Chew tobacco use (# tins/day): No Smoking Education Provided: No Frequency of alcohol use: None Drug Abuse: None Family History: Reviewed & Not Pertinent Patient has suicidal ideation: No Patient has homicidal ideation: No - Past Medical History Cardiac Medical History: Reports: Hx Congestive Heart Failure, Hx Coronary Artery Disease, Hx DVT, Hx Hypercholesterolemia, Hx Hypertension, Hx Pulmonary Embolism Denies: Hx Atrial Fibrillation, Hx Heart Attack, Hx Peripheral Vascular Disease, Hx Heart Murmur Pulmonary Medical History: Reports: Hx Asthma, Hx COPD, Hx Pneumonia, Hx Sleep Apnea Denies: Hx Bronchitis, Hx Respiratory Failure, Hx Tuberculosis Neurological Medical History: Denies: Hx Cerebrovascular Accident, Hx Seizures Endocrine Medical History: Reports: Hx Diabetes Mellitus Type 2. Denies: Hx Graves' Disease, Hx Hyperthyroidism, Hx Hypothyroidism Renal/ Medical History: Denies: Hx Peritoneal Dialysis Malignancy Medical History: Denies Hx Leukemia, Denies Hx Lung Cancer GI Medical History: Reports: Hx Hiatal Hernia. Denies: Hx Crohn's Disease, Hx Gastroesophageal Reflux Disease, Hx Irritable Bowel, Hx Liver Failure, Hx Pancreatitis, Hx Ulcer Musculoskeltal Medical History: Denies Hx Arthritis, Denies Hx Fibromyalgia, Denies Hx Muscular Dystrophy Psychiatric Medical History: Reports: Hx Anxiety, Hx Depression, Hx Post Traumatic Stress Disorder, Hx Schizophrenia Denies: Hx Bipolar Disorder Traumatic Medical History: Reports: Hx Fractures Infectious Medical History: Denies: Hx HIV Past Surgical History: Reports: Hx Abdominal Surgery - hernia repair, Hx Cardiac Catheterization - 30% blockage, Hx Genitourinary Surgery - VASECTOMY, Hx Herniorrhaphy, Hx Oral Surgery - TOOTH EXTRACTION, Hx Orthopedic Surgery - PLATE SCREWS DISC AND BONE GRAFT: NECK, Hx Tonsillectomy. Denies: Hx Appendectomy, Hx Bowel Surgery, Hx Cholecystectomy, Hx Colostomy, Hx Coronary Artery Bypass Graft, Hx Gastric Bypass Surgery, Hx Pacemaker - Immunizations Hx Diphtheria, Pertussis, Tetanus Vaccination: No Hx Pneumococcal Vaccination: 04/07/09 Review of Systems - Review of Systems Notes: REVIEW OF SYSTEMS: CONSTITUTIONAL : Denies fever, chills, or sweats. Denies recent illness. EENT: Denies eye, ear, throat, or mouth pain or symptoms. Denies nasal or sinus congestion or discharge. Denies throat, tongue, or mouth swelling or difficulty swallowing. CARDIOVASCULAR: Denies chest pain. Denies palpitations or racing or irregular heart beat. admits to edema RESPIRATORY: Denies cough, cold, or chest congestion. Denies shortness of breath, difficulty breathing, or wheezing. GASTROINTESTINAL: Denies abdominal pain or distention. Denies nausea, vomiting , or diarrhea. Denies blood in vomitus, stools, or per rectum. Denies black, tarry stools. Denies constipation. GENITOURINARY: Denies difficulty urinating, painful urination, burning, frequency, blood in urine, or discharge. MUSCULOSKELETAL: bilateral lower extremity edema SKIN: admits to redness of the right anterior felton . HEMATOLOGIC : Denies easy bruising or bleeding. LYMPHATIC: Denies swollen, enlarged glands. NEUROLOGICAL: Denies confusion or altered mental status. Denies passing out or loss of consciousness. Denies dizziness or lightheadedness. Denies headache. Denies weakness or paralysis or loss of use of either side. Denies problems with gait or speech. Denies sensory loss, numbness, or tingling. Denies seizures. PSYCHIATRIC: Denies anxiety or stress. Denies depression, suicidal ideation, or homicidal ideation. ALL OTHER SYSTEMS REVIEWED AND NEGATIVE. Dictation was performed using [employer] voice recognition software PHYSICAL EXAMINATION: GENERAL: Well-appearing, well-nourished and in no acute distress. HEAD: Atraumatic, normocephalic. EYES: Pupils equal round and reactive to light, extraocular movements intact, sclera anicteric, conjunctiva are normal. ENT: Nares patent, oropharynx clear without exudates. Moist mucous membranes. NECK: Normal range of motion, supple without lymphadenopathy LUNGS: Breath sounds clear to auscultation bilaterally and equal. No wheezes rales or rhonchi. HEART: Regular rate and rhythm without murmurs ABDOMEN: Soft, nontender, nondistended abdomen. No guarding, no rebound. No masses appreciated. Musculoskeletal: bilateral lower extremity edema +3 , there is mild erythema of the anterior felton, no streaking no abscesses noted. NEUROLOGICAL: Cranial nerves grossly intact. Normal speech, normal gait. Normal sensory, motor exams PSYCH: Normal mood, normal affect. SKIN: Warm, Dry, normal turgor, no rashes or lesions noted. Physical Exam - Vital signs Vitals: Temp Pulse Resp BP Pulse Ox 99.2 F 66 20 148/77 H 97 01/23/17 02:21 01/23/17 02:21 01/23/17 02:21 01/23/17 02:21 01/23/17 02:21 Course - Re-evaluation Re-evalutation: 01/23/17 11:40 Patient has a history of hypokalemia, he already takes 20 milliequivalents of potassium. Ultrasound noted no signs of DVT, there is no significant sign of infection. Patient was given oral potassium and IV potassium and IV antibiotics , Doppler was negative. Patient will be treated as cellulitis and looks well at this time, however very strict return precautions have been provided since he has had a history of cellulitis requiring long-term admission and care After performing a Medical Screening Examination, I estimate there is LOW risk for OPEN FRACTURE, COMPARTMENT SYNDROME, TENDON RUPTURE, ACUTE NEUROVASCULAR INJURY, or RETAINED FOREIGN BODY, thus I consider the discharge disposition reasonable. Also, there is no evidence or peritonitis, sepsis, or toxicity. I have reevaluated this patient multiple times and no significant life threatening changes are noted. The patient and I have discussed the diagnosis and risks, and we agree with discharging home with close follow-up with the understanding that symptoms and presentations can change. We also discussed returning to the Emergency Department immediately if new or worsening symptoms occur. We have discussed the symptoms which are most concerning (e.g., changing or worsening pain, fever, numbness, weakness, cool or painful digits) that necessitate immediate return. - Vital Signs Vital signs: Temp Pulse Resp BP Pulse Ox 99.2 F 66 17 130/65 H 99 01/23/17 02:21 01/23/17 02:21 01/23/17 06:00 01/23/17 10:02 01/23/17 10:02 - Laboratory Result Diagrams: 01/23/17 05:00 01/23/17 06:02 Laboratory results interpreted by me: 01/23/17 01/23/17 01/23/17 05:00 05:00 06:02 Hgb 13.2 L Hct 37.0 L RDW 15.5 H PT 21.3 H Potassium 2.8 L* Chloride 95 L Carbon Dioxide 32 H BUN 28 H Calcium 10.3 H Critical Care Note - Critical Care Note Total time excluding time spent on procedures (mins): 34 Comments: 34 minutes of critical care time spent in direct contact evaluating and reevaluating the patient, treating symptoms, reviewing labs and studies and speaking with family and consultants excluding any procedures Discharge - Discharge Clinical Impression: Hypokalemia Cellulitis Qualifiers: Site of cellulitis: extremity Site of cellulitis of extremity: lower extremity Laterality: right Qualified Code(s): L03.115 - Cellulitis of right lower limb Condition: Stable Disposition: HOME, SELF-CARE Instructions: Edema, Peripheral ([facility]) Prescriptions: Clindamycin HCl 300 mg PO Q6 #40 capsule
[2017-01-23 13:18] VITALS: BP 148/71
--- NOTE | 2017-01-23 16:20 | XCELERA REPORT ---
[address] [address] Lower Extremity Venous Evaluation Name: KI DAVIS VincentJR Age: 61 yrs Gender: Male : 1955 Patient Status: Emergency Patient Location: ER Study Date: 01/23/2017 09:58 AM Procedure: Color flow and duplex imaging of the veins of the right lower extremity as well as the left Common Femoral vein. Reason For Study: right lower extremity Ordering Physician: HELENA ALCANTARA Performed By: Bon Jackson Right Sided Venous Evaluation Normal vessel filling wall to wall, compression and augmentation as well as Colour flow down to the infrageniculate veins. Left Sided Venous Evaluation The left common femoral vein is fully compressible. Spontaneous and phasic flow is present in the left common femoral vein. Interpretation Summary No duplex evidence of DVT or obstruction in the right lower extremity nor in the left Common Femoral vein. : HELENA ALCANTARA > Christiano Camargo
--- NOTE | 2017-01-23 20:25 | EKG REPORT ---
SEVERITY:- NORMAL ECG - SINUS RHYTHM : Confirmed by: Leticia Garcia MD 23-Jan-2017 20:24:36
== END 2017-01-23 13:22 | disposition home or self-care (01) ==
LOC: ER 02:13
DX: E87.6 Hypokalemia (principal); L03.115 Cellulitis of right lower limb; M79.604 Pain in right leg; I50.9 Heart failure, unspecified; I25.10 Atherosclerotic heart disease of native coronary artery without angina pectoris; E78.00 Pure hypercholesterolemia, unspecified; I11.0 Hypertensive heart disease with heart failure; E11.9 Type 2 diabetes mellitus without complications; Z86.718 Personal history of other venous thrombosis and embolism; Z86.711 Personal history of pulmonary embolism; Z88.2 Allergy status to sulfonamides; Z88.0 Allergy status to penicillin; Z88.6 Allergy status to analgesic agent
CPT/HCPCS: 93005; 99291; 96365; 96366; 96368; 36415; 87040; 82553; 82550; 83735; 85025; 85610; 87077; 80053; 84484; 85379; 83880; 93971 ×2; 71010; 93010; J3490; J3480; A9270; 87186

== ENCOUNTER 2017-02-15 19:17 | Emergency (ER) | payer MEDICARE, MEDICAID ==
[2017-02-15 19:50] LABS: PROTHROMBIN TIME 21.4 SEC (11.4-15.4)
[2017-02-15 19:52] LABS: ABSOLUTE BASOPHILS # (AUTO) 0.1 10^3/uL (0.0-0.2); ABSOLUTE EOSINOPHILS # (AUTO) 0.2 10^3/uL (0.0-0.6); ABSOLUTE LYMPHOCYTES (AUTO) 1.7 10^3/uL (0.5-4.7); ABSOLUTE MONOCYTES (AUTO) 0.7 10^3/uL (0.1-1.4); ABSOLUTE NEUT (AUTO) 5.1 10^3/uL (1.7-8.2); BASOPHILS % (AUTO) 0.9 % (0-2); EOSINOPHILS % (AUTO) 2.4 % (0-6); HEMATOCRIT 36.9 % (37.9-51.0); HEMOGLOBIN 12.7 g/dL (13.5-17.0); HGB HCT DIFFERENCE 1.2; LYMPHOCYTES % (AUTO) 21.5 % (13-45); MEAN CORPUSCULAR HEMOGLOBIN 28.5 pg (27.0-33.4); MEAN CORPUSCULAR HGB CONC 34.4 g/dL (32.0-36.0); MEAN CORPUSCULAR VOLUME 83 fl (80-97); MONOCYTES % (AUTO) 8.9 % (3-13); RED BLOOD COUNT 4.45 10^6/uL (4.35-5.55); RED CELL DISTRIBUTION WIDTH 15.2 % (11.5-14.0); SEGMENTED NEUTROPHILS % (AUTO) 66.3 % (42-78); WHITE BLOOD COUNT 7.7 10^3/uL (4.0-10.5)
[2017-02-15] MEDS ORDERED: ACETAMINOPHEN 325 MG TABLET PO ONE (20:01)
--- NOTE | 2017-02-15 20:03 | ER Document Report ---
ED Cardiac - General Chief Complaint: Chest Pressure Stated Complaint: CHEST PRESSURE,HEADACHE Time Seen by Provider: 02/15/17 19:21 Mode of Arrival: Medic Information source: Patient Notes: Patient states that he recently had his blood pressure medication changed and started taking lisinopril yesterday. She states that whenever he took his blood pressure medication today 2 PM that his blood pressure started to go up. States that his blood pressure around 2 PM systolically was 168 and then 3 hours later increased to 190/94. Patient states that around 5 PM he started to have some upper chest pressure, neck pain and headache pain. Patient denies any difficulty breathing. Patient did have some nausea. Patient without any vomiting or diarrhea. Patient states that he does take aspirin daily and his artery had aspirin today even though he does take Coumadin as well. Patient states that his chest pain presently is resolved. TRAVEL OUTSIDE OF THE [place] IN LAST 30 DAYS: No - HPI Patient complains to provider of: Chest pain. denies: Shortness of breath Was the onset of pain: Gradual Quality of pain: Pressure Chest pain radiation location: Neck Severity now: Mild Pain level currently: Denies Cardiac risk factors: Hypertension, Dyslipidemia Associated symptoms: Nausea/vomiting, Neck pain. denies: Back pain, Dizziness, Heartburn, Palpitations, Shortness of breath Exacerbated by: Denies Relieved by: Nothing Similar symptoms previously: No Recently seen / treated by doctor: No - Related Data Allergies/Adverse Reactions: amlodipine Allergy (Verified 02/16/17 00:57) benazepril [Benazepril] Allergy (Verified 02/16/17 00:57) clonidine Allergy (Verified 02/16/17 00:57) codeine [Codeine] Allergy (Verified 02/16/17 00:57) haloperidol [From Haldol] Allergy (Verified 02/16/17 00:57) minoxidil Allergy (Verified 02/16/17 00:57) nalbuphine Allergy (Verified 02/16/17 00:57) oxycodone Allergy (Verified 02/16/17 00:57) Penicillins Allergy (Verified 02/16/17 00:57) perphenazine Allergy (Verified 02/16/17 00:57) propoxyphene Allergy (Verified 02/16/17 00:57) Sulfa (Sulfonamide Antibiotics) Allergy (Verified 02/16/17 00:57) topiramate Allergy (Verified 02/16/17 00:57) trifluoperazine [From Stelazine] Allergy (Verified 02/16/17 00:57) Past Medical History - General Information source: Patient - Social History Smoking Status: Never Smoker Chew tobacco use (# tins/day): No Frequency of alcohol use: None Drug Abuse: None Occupation: none Lives with: Alone Family History: Reviewed & Not Pertinent - Past Medical History Cardiac Medical History: Reports: Hx Congestive Heart Failure, Hx Coronary Artery Disease, Hx DVT, Hx Hypercholesterolemia, Hx Hypertension, Hx Pulmonary Embolism Denies: Hx Atrial Fibrillation, Hx Heart Attack, Hx Peripheral Vascular Disease, Hx Heart Murmur Pulmonary Medical History: Reports: Hx Asthma, Hx COPD, Hx Pneumonia, Hx Sleep Apnea Denies: Hx Bronchitis, Hx Respiratory Failure, Hx Tuberculosis Neurological Medical History: Denies: Hx Cerebrovascular Accident, Hx Seizures Endocrine Medical History: Reports: Hx Diabetes Mellitus Type 2. Denies: Hx Graves' Disease, Hx Hyperthyroidism, Hx Hypothyroidism Renal/ Medical History: Denies: Hx Peritoneal Dialysis Malignancy Medical History: Denies Hx Leukemia, Denies Hx Lung Cancer GI Medical History: Reports: Hx Hiatal Hernia. Denies: Hx Crohn's Disease, Hx Gastroesophageal Reflux Disease, Hx Irritable Bowel, Hx Liver Failure, Hx Pancreatitis, Hx Ulcer Musculoskeltal Medical History: Denies Hx Arthritis, Denies Hx Fibromyalgia, Denies Hx Muscular Dystrophy Psychiatric Medical History: Reports: Hx Anxiety, Hx Depression, Hx Post Traumatic Stress Disorder, Hx Schizophrenia Denies: Hx Bipolar Disorder Traumatic Medical History: Reports: Hx Fractures Infectious Medical History: Denies: Hx HIV Past Surgical History: Reports: Hx Abdominal Surgery - hernia repair, Hx Cardiac Catheterization - 30% blockage, Hx Genitourinary Surgery - VASECTOMY, Hx Herniorrhaphy, Hx Oral Surgery - TOOTH EXTRACTION, Hx Orthopedic Surgery - PLATE SCREWS DISC AND BONE GRAFT: NECK, Hx Tonsillectomy. Denies: Hx Appendectomy, Hx Bowel Surgery, Hx Cholecystectomy, Hx Colostomy, Hx Coronary Artery Bypass Graft, Hx Gastric Bypass Surgery, Hx Pacemaker - Immunizations Hx Diphtheria, Pertussis, Tetanus Vaccination: No Hx Pneumococcal Vaccination: 04/07/09 Review of Systems - Review of Systems Constitutional: No symptoms reported. denies: Fever, Recent illness EENT: No symptoms reported Cardiovascular: Chest pain. denies: Syncope, Dizziness Respiratory: No symptoms reported. denies: Cough, Short of breath Gastrointestinal: Nausea. denies: Abdominal pain, Diarrhea, Vomiting Genitourinary: No symptoms reported Male Genitourinary: No symptoms reported Musculoskeletal: Neck pain. denies: Back pain Skin: No symptoms reported Hematologic/Lymphatic: No symptoms reported Neurological/Psychological: No symptoms reported Physical Exam - Vital signs Vitals: Temp Pulse Resp BP Pulse Ox 98.3 F 68 18 150/76 H 97 02/15/17 19:25 02/15/17 19:25 02/15/17 19:25 02/15/17 19:25 02/15/17 19:25 - General General appearance: Appears well, Alert In distress: None - HEENT Head: Normocephalic, Atraumatic Eyes: Normal Conjunctiva: Normal Pupils: PERRL Ears: Normal External canal: Normal Nasal: Normal Mouth/Lips: Normal Mucous membranes: Normal Pharynx: Normal. No: Erythema, Exudate Neck: Supple, Other - tenderness to neck. No: Lymphadenopathy, Meningismus - Respiratory Respiratory status: No respiratory distress Chest status: Nontender Breath sounds: Other - diminished bilat Chest palpation: Normal - Cardiovascular Rhythm: Regular Heart sounds: S1 appreciated, S2 appreciated Murmur: No - Abdominal Inspection: Morbidly Obese Distension: No distension Tenderness: Nontender - Back Back: Normal. No: CVA tenderness - Extremities General upper extremity: Normal inspection, Normal ROM General lower extremity: Edema, Normal ROM - Neurological Neuro grossly intact: Yes Cognition: Normal [place] Coma Scale Eye Opening: Spontaneous [place] Coma Scale Verbal: Oriented [place] Coma Scale Motor: Obeys Commands Chad Coma Scale Total: 15 - Psychological Associated symptoms: Normal affect, Normal mood - Skin Skin Temperature: Warm Skin Moisture: Dry Skin Color: Normal Course - Re-evaluation Re-evalutation: 02/15/17 21:06 Patient's blood pressure 145/81. Patient continues to deny any chest discomfort. Patient states that his headache pain is resolved at this time as well. 02/15/17 22:[address] Mccauley regarding patient presentation, discussed patient' s presentation, diagnostic tests as well as history. Recommends consultation with hospitalist for admission consideration. Consult with Dr. Downing who declines admitting patient at this time and request that a repeat troponin be performed. 02/15/17 23:25 Patient continues to deny any complaints at this time. Patient states his last heart catheterization was in 2009 and that they did not find any blockages. Patient states that he typically takes his Coumadin at midnight each night. 02/16/17 00:38 Patient continues to deny any chest discomfort or headache symptoms. Patient's blood pressure continues 139/79. Patient concerned that he may be having an adverse reaction to his lisinopril. Patient is concerned that he had an episode of diarrhea today that he attributes to his lisinopril and also is worried that his blood pressure medication initially because his blood pressure to go up although he has since had a normalized blood pressure this evening. Patient advised that these are not allergic reactions to blood pressure medications. Provider attempted to reassure patient as he had taken the blood pressure medication yesterday without any blood pressure/reaction concerns. Consulted with Dr. Mccauley regarding patient's concern and plan for discharge. Dr. Mccauley agrees with plan for discharge and advises follow-up with patient's primary doctor on Friday to discuss his hypertensive management. 02/16/17 00:51 The patient has atypical chest pain as the patient's chest pain is not suggestive of pulmonary embolus, cardiac ischemia, aortic dissection, or other serious etiology. Given the extremely low risk of these diagnoses for the test in evaluation for these possibilities does not appear to be indicated at this time. Patient has been instructed to return if the symptoms worsen or change in any way. - Vital Signs Vital signs: Temp Pulse Resp BP Pulse Ox 97.7 F 68 17 144/95 H 96 02/16/17 00:59 02/15/17 19:25 02/16/17 01:00 02/16/17 00:59 02/16/17 00:58 - Laboratory Result Diagrams: 02/15/17 19:25 02/15/17 20:55 Laboratory results interpreted by me: 02/15/17 02/15/17 02/15/17 19:25 19:25 20:55 Hgb 12.7 L Hct 36.9 L RDW 15.2 H PT 21.4 H Carbon Dioxide 31 H 02/16/17 00:38 Labs- Entire Visit 02/15/17 02/15/17 02/15/17 19:25 19:25 19:25 WBC 7.7 RBC 4.45 Hgb 12.7 L Hct 36.9 L MCV 83 MCH 28.5 MCHC 34.4 RDW 15.2 H Plt Count 213 Seg Neutrophils % 66.3 Lymphocytes % 21.5 Monocytes % 8.9 Eosinophils % 2.4 Basophils % 0.9 Absolute Neutrophils 5.1 Absolute Lymphocytes 1.7 Absolute Monocytes 0.7 Absolute Eosinophils 0.2 Absolute Basophils 0.1 PT 21.4 H INR 1.74 Sodium Cancelled Potassium Cancelled Chloride Cancelled Carbon Dioxide Cancelled Anion Gap Cancelled BUN Cancelled Creatinine Cancelled Est GFR ( Amer) Cancelled Est GFR (Non-Af Amer) Cancelled Glucose Cancelled Calcium Cancelled Magnesium Cancelled Total Bilirubin Cancelled Direct Bilirubin Cancelled Indirect Bilirubin Cancelled Neonat Total Bilirubin Cancelled AST Cancelled ALT Cancelled Alkaline Phosphatase Cancelled Creatine Kinase Cancelled CK-MB (CK-2) Troponin I NT-Pro-B Natriuret Pep Total Protein Cancelled Albumin Cancelled 02/15/17 02/15/17 02/15/17 19:25 19:55 20:55 WBC RBC Hgb Hct MCV MCH MCHC RDW Plt Count Seg Neutrophils % Lymphocytes % Monocytes % Eosinophils % Basophils % Absolute Neutrophils Absolute Lymphocytes Absolute Monocytes Absolute Eosinophils Absolute Basophils PT INR Sodium Cancelled 144.6 Potassium Cancelled 3.9 Chloride Cancelled 104 Carbon Dioxide Cancelled 31 H Anion Gap Cancelled 10 BUN Cancelled 19 Creatinine Cancelled 1.09 Est GFR ( Amer) Cancelled > 60 Est GFR (Non-Af Amer) Cancelled > 60 Glucose Cancelled 84 Calcium Cancelled 9.5 Magnesium Cancelled 2.1 Total Bilirubin Cancelled 0.5 Direct Bilirubin Cancelled 0.3 Indirect Bilirubin Cancelled Not Reportable Neonat Total Bilirubin Cancelled Not Reportable AST Cancelled 21 ALT Cancelled 36 Alkaline Phosphatase Cancelled 80 Creatine Kinase Cancelled 61 CK-MB (CK-2) 0.59 Troponin I < 0.012 NT-Pro-B Natriuret Pep Total Protein Cancelled 7.1 Albumin Cancelled 3.7 02/15/17 02/15/17 20:55 23:00 WBC RBC Hgb Hct MCV MCH MCHC RDW Plt Count Seg Neutrophils % Lymphocytes % Monocytes % Eosinophils % Basophils % Absolute Neutrophils Absolute Lymphocytes Absolute Monocytes Absolute Eosinophils Absolute Basophils PT INR Sodium Potassium Chloride Carbon Dioxide Anion Gap BUN Creatinine Est GFR ( Amer) Est GFR (Non-Af Amer) Glucose Calcium Magnesium Total Bilirubin Direct Bilirubin Indirect Bilirubin Neonat Total Bilirubin AST ALT Alkaline Phosphatase Creatine Kinase CK-MB (CK-2) Troponin I < 0.012 NT-Pro-B Natriuret Pep 249 Total Protein Albumin - Diagnostic Test Radiology reviewed: Reports reviewed - EKG Interpretation by Me EKG shows normal: Sinus rhythm Rate: Normal Discharge - Discharge Clinical Impression: Chest pressure Head ache Qualifiers: Headache type: unspecified Headache chronicity pattern: acute headache Intractability: not intractable Qualified Code(s): R51 - Headache Condition: Stable Disposition: HOME, SELF-CARE Instructions: Acetaminophen, Chest Pain of Unclear Cause ([facility]), Headache ([facility]) Additional Instructions: Return immediately for any new or worsening symptoms Followup with Rebeka tomorrow for recheck. She can advise you as far as adjusting her blood pressure medications then. Follow up with a director electronics for a recheck, call Friday for an appointment. Referrals: YOSI HIGHTOWER MD [ACTIVE STAFF] - Follow up tomorrow ISIS RAMOS MD [ACTIVE STAFF] - Follow up tomorrow
[2017-02-15 20:08] LABS: CREATINE KINASE MB 0.59 ng/mL (<4.55)
[2017-02-15 20:10] LABS: TROPONIN I < 0.012 ng/mL
--- NOTE | 2017-02-15 20:25 | RADIOLOGY REPORT (SQ) ---
EXAM DESCRIPTION: CT HEAD WITHOUT COMPLETED DATE/TIME: 02/15/2017 8:16 pm REASON FOR STUDY: [facility] COMPARISON: 07/29/2009 TECHNIQUE: Axial images acquired through the brain without intravenous contrast. Images reviewed wi th bone, brain and subdural windows. Images stored on PACS. All CT scanners at this facility use dose modulation, iterative reconstruction, and/or weight based d osing when appropriate to reduce radiation dose to as low as reasonably achievable (ALARA). [facility]: Dose Right [facility]: CareDose [facility]: Dose Right [facility]: Teradose 4D [facility]: [employer] RADIATION DOSE: Up-to-date CT equipment and radiation dose reduction techniques were employed. CTDIv ol: 64.6 mGy. DLP: 1292 mGy-cm.mGy. LIMITATIONS: None. FINDINGS: VENTRICLES: Prominent. CEREBRUM: No masses. No hemorrhage. No midline shift. Areas of low density in the white matter mos t likely due to chronic micro-vascular ischemic change. No evidence for acute infarction. CEREBELLUM: No masses. No hemorrhage. No alteration of density. No evidence for acute infarction. EXTRAAXIAL SPACES: Age-related involutional change. No fluid collections. No masses. ORBITS AND GLOBE: No intra- or extraconal masses. Normal contour of globe without masses. CALVARIUM: No fracture. PARANASAL SINUSES: No fluid or mucosal thickening. SOFT TISSUES: No mass or hematoma. OTHER: No other significant finding. IMPRESSION: CHRONIC CHANGES OF ATROPHY AND MICROVASCULAR ISCHEMIA. NO ACUTE PROCESS. EVIDENCE OF ACUTE STROKE: NO. TECHNICAL DOCUMENTATION: JOB ID: [id number] Quality ID # [id number]: Final reports with documentation of one or more dose reduction techniques (e.g., Au tomated exposure control, adjustment of the mA and/or kV according to patient size, use of iterative reconstruction technique) 2010 [employer]- All Rights Reserved
--- NOTE | 2017-02-15 20:52 | RADIOLOGY REPORT (SQ) ---
EXAM DESCRIPTION: CHEST PA/LAT COMPLETED DATE/TIME: 02/15/2017 8:35 pm REASON FOR STUDY: cp COMPARISON: 10/09/2016 EXAM PARAMETERS: NUMBER OF VIEWS: two views TECHNIQUE: Digital Frontal and Lateral radiographic views of the chest acquired. RADIATION DOSE: NA LIMITATIONS: none FINDINGS: LUNGS AND PLEURA: No opacities, masses or pneumothorax. No pleural effusion. MEDIASTINUM AND HILAR STRUCTURES: No masses or contour abnormalities. HEART AND VASCULAR STRUCTURES: Cardiomegaly with pulmonary vascular congestion. BONES: No acute findings. HARDWARE: Lower cervical ACDF hardware. OTHER: No other significant finding. IMPRESSION: Constellation of findings consistent with early CHF exacerbation. TECHNICAL DOCUMENTATION: JOB ID: [id number] [employer]- All Rights Reserved
--- NOTE | 2017-02-15 21:20 | EKG REPORT ---
SEVERITY:- NORMAL ECG - SINUS RHYTHM : Confirmed by: Richard Go MD 15-Feb-2017 21:19:54
[2017-02-15 22:04] LABS: ALANINE AMINOTRANSFERASE 36 U/L (21-72); ALBUMIN 3.7 g/dL (3.5-5.0); ALKALINE PHOSPHATASE 80 U/L (38-126); ANION GAP 10 (5-19); ASPARTATE AMINO TRANSFERASE 21 U/L (17-59); BILIRUBIN,DIRECT 0.3 mg/dL (0.0-0.4); BILIRUBIN,TOTAL 0.5 mg/dL (0.2-1.3); BLOOD UREA NITROGEN 19 mg/dL (7-20); CALCIUM 9.5 mg/dL (8.4-10.2); CARBON DIOXIDE 31 mmol/L (22-30); CHLORIDE 104 mmol/L (98-107); CREATINE KINASE 61 U/L (55-170); CREATININE RESULT 1.09 mg/dL (0.52-1.25); GLUCOSE 84 mg/dL (75-110); MAGNESIUM 2.1 mg/dL (1.6-2.3); POTASSIUM 3.9 mmol/L (3.6-5.0); SODIUM 144.6 mmol/L (137-145); TOTAL PROTEIN 7.1 g/dL (6.3-8.2)
[2017-02-15] MEDS ORDERED: WARFARIN SODIUM 7.5 MG TABLET PO ONE (23:24)
[2017-02-15] MEDS ORDERED: WARFARIN SODIUM 5 MG TABLET ONE (23:57)
[2017-02-15] MEDS ORDERED: WARFARIN SODIUM 2.5 MG TABLET ONE (23:58)
[2017-02-16 01:10] VITALS: BP 144/95
== END 2017-02-16 00:58 | disposition home or self-care (01) ==
LOC: ER 19:17
DX: R07.9 Chest pain, unspecified (principal); R51 Headache; R11.2 Nausea with vomiting, unspecified; M54.2 Cervicalgia; I50.9 Heart failure, unspecified; I25.10 Atherosclerotic heart disease of native coronary artery without angina pectoris; E78.00 Pure hypercholesterolemia, unspecified; E11.9 Type 2 diabetes mellitus without complications; J44.9 Chronic obstructive pulmonary disease, unspecified; Z88.0 Allergy status to penicillin; Z88.2 Allergy status to sulfonamides; Z86.718 Personal history of other venous thrombosis and embolism; Z86.711 Personal history of pulmonary embolism
CPT/HCPCS: 93005; 99285; 36415; 82553; 82550; 83735; 85025; 85610; 80053; 84484; 83880; 71020; 70450; 93010; A9270 ×3; J3490

== ENCOUNTER → 2017-03-13 | Outpatient (CLI) | payer MEDICARE, MEDICAID | LOC: OD 14:17 | PROVIDERS: ATTEND Internal Medicine Nephrology | DX: I82.409 Acute embolism and thrombosis of unspecified deep veins of unspecified lower extremity (principal); Z86.711 Personal history of pulmonary embolism; Z92.29 Personal history of other drug therapy | CPT/HCPCS: 36415; 85610 ==

== ENCOUNTER 2017-04-15 19:15 | Emergency (ER) | payer MEDICARE, MEDICAID ==
[2017-04-15 19:31] VITALS: BP 152/67
[2017-04-15] MEDS ORDERED: IPRATROPIUM/ALBUTEROL 0.5-2.5 MG/3 ML AMPUL NEB ONE (21:35)
[2017-04-15] MEDS ORDERED: PREDNISONE 20 MG TABLET PO ONE (21:35)
[2017-04-15] MEDS ORDERED: ALBUTEROL SULFATE 0.083% NEB 2.5 MG/3 ML AMPUL NEB SCH (21:50)
== END 2017-04-15 22:09 | disposition left against medical advice (07) ==
LOC: ER 19:15
DX: Z53.21 Procedure and treatment not carried out due to patient leaving prior to being seen by health care provider (principal)

== ENCOUNTER → 2017-05-13 | Outpatient (CLI) | payer MEDICARE, MEDICAID ==
[2017-05-13 10:41] LABS: ABSOLUTE BASOPHILS # (AUTO) 0.1 10^3/uL (0.0-0.2); ABSOLUTE EOSINOPHILS # (AUTO) 0.4 10^3/uL (0.0-0.6); ABSOLUTE LYMPHOCYTES (AUTO) 2.1 10^3/uL (0.5-4.7); ABSOLUTE MONOCYTES (AUTO) 0.7 10^3/uL (0.1-1.4); ABSOLUTE NEUT (AUTO) 4.6 10^3/uL (1.7-8.2); BASOPHILS % (AUTO) 0.9 % (0-2); EOSINOPHILS % (AUTO) 4.7 % (0-6); HEMATOCRIT 40.7 % (37.9-51.0); HEMOGLOBIN 13.7 g/dL (13.5-17.0); LYMPHOCYTES % (AUTO) 26.8 % (13-45); MEAN CORPUSCULAR HEMOGLOBIN 27.7 pg (27.0-33.4); MEAN CORPUSCULAR HGB CONC 33.7 g/dL (32.0-36.0); MEAN CORPUSCULAR VOLUME 83 fl (80-97); MONOCYTES % (AUTO) 9.2 % (3-13); PLATELET COUNT 264 10^3/uL (150-450); RED BLOOD COUNT 4.93 10^6/uL (4.35-5.55); SEGMENTED NEUTROPHILS % (AUTO) 58.4 % (42-78); TOTAL CELLS COUNTED % (AUTO) 100 %; WHITE BLOOD COUNT 7.8 10^3/uL (4.0-10.5)
[2017-05-13 10:48] LABS: APPEARANCE,URINE CLEAR; BILIRUBIN,URINE NEGATIVE (NEGATIVE); COLOR,URINE YELLOW; GLUCOSE, URINE NEGATIVE (NEGATIVE); KETONES,URINE NEGATIVE (NEGATIVE); LEUKOCYTE ESTERASE,URINE SMALL (NEGATIVE); NITRITE,URINE NEGATIVE (NEGATIVE); PROTEIN,URINE NEGATIVE (NEGATIVE); URINE SPECIFIC GRAVITY 1.008; UROBILINOGEN,URINE NEGATIVE mg/dL (<2.0)
[2017-05-13 11:01] LABS: ALANINE AMINOTRANSFERASE 31 U/L (21-72); ALBUMIN 4.6 g/dL (3.5-5.0); ALKALINE PHOSPHATASE 86 U/L (38-126); ANION GAP 14 (5-19); ASPARTATE AMINO TRANSFERASE 27 U/L (17-59); BILIRUBIN,DIRECT 0.2 mg/dL (0.0-0.4); BILIRUBIN,TOTAL 0.4 mg/dL (0.2-1.3); BLOOD UREA NITROGEN 32 mg/dL (7-20); CALCIUM 9.9 mg/dL (8.4-10.2); CARBON DIOXIDE 39 mmol/L (22-30); CHLORIDE 89 mmol/L (98-107); GLUCOSE 126 mg/dL (75-110); POTASSIUM 3.3 mmol/L (3.6-5.0); SODIUM 142.4 mmol/L (137-145); TOTAL PROTEIN 7.9 g/dL (6.3-8.2); TRIGLYCERIDES 163 mg/dL (<150)
[2017-05-13 11:12] LABS: DIRECT LDL 122 mg/dL (<100)
[2017-05-13 11:14] LABS: VLDL CHOLESTEROL 32.6 mg/dL (10-31)
[2017-05-14 13:39] LABS: CREATININE URINE 52.9 mg/dL (Not Estab.); MICROALBUMIN URINE 10.2 ug/mL (Not Estab.)
== END ==
LOC: OD 09:56
PROVIDERS: ATTEND Internal Medicine Nephrology
DX: E11.9 Type 2 diabetes mellitus without complications (principal); E78.2 Mixed hyperlipidemia; R80.9 Proteinuria, unspecified; Z86.711 Personal history of pulmonary embolism
CPT/HCPCS: 36415; 80053; 80061; 81001; 82043; 82570; 83036; 85025; 85610

== ENCOUNTER 2017-05-27 12:05 | Emergency (ER) | payer MEDICARE, MEDICAID ==
--- NOTE | 2017-05-27 12:58 | RADIOLOGY REPORT (SQ) ---
EXAM DESCRIPTION: CHEST SINGLE VIEW COMPLETED DATE/TIME: 05/27/2017 12:36 pm REASON FOR STUDY: SOB CHF COMPARISON: Chest films 02/15/2017, 01/23/2017, 10/20/2016, 11/29/2015 CT chest 11/29/2015 EXAM PARAMETERS: NUMBER OF VIEWS: One view. TECHNIQUE: Single frontal radiographic view of the chest acquired. RADIATION DOSE: NA LIMITATIONS: Obese patient, portable lordotic technique FINDINGS: LUNGS AND PLEURA: No opacities, masses or pneumothorax. No pleural effusion. MEDIASTINUM AND HILAR STRUCTURES: No masses. Contour normal. HEART AND VASCULAR STRUCTURES: Stable mild cardiomegaly. BONES: No acute findings. HARDWARE: Lower cervical fusion plate OTHER: No other significant finding. IMPRESSION: Cardiomegaly. No acute findings TECHNICAL DOCUMENTATION: JOB ID: [id number]- All Rights Reserved
[2017-05-27 13:03] LABS: ABSOLUTE BASOPHILS # (AUTO) 0.1 10^3/uL (0.0-0.2); ABSOLUTE EOSINOPHILS # (AUTO) 0.1 10^3/uL (0.0-0.6); ABSOLUTE LYMPHOCYTES (AUTO) 1.1 10^3/uL (0.5-4.7); ABSOLUTE MONOCYTES (AUTO) 0.5 10^3/uL (0.1-1.4); ABSOLUTE NEUT (AUTO) 4.8 10^3/uL (1.7-8.2); BASOPHILS % (AUTO) 0.9 % (0-2); EOSINOPHILS % (AUTO) 2.1 % (0-6); HEMATOCRIT 42.4 % (37.9-51.0); HEMOGLOBIN 14.2 g/dL (13.5-17.0); LYMPHOCYTES % (AUTO) 16.3 % (13-45); MEAN CORPUSCULAR HEMOGLOBIN 27.6 pg (27.0-33.4); MEAN CORPUSCULAR HGB CONC 33.5 g/dL (32.0-36.0); MEAN CORPUSCULAR VOLUME 82 fl (80-97); MONOCYTES % (AUTO) 7.6 % (3-13); PLATELET COUNT 257 10^3/uL (150-450); RED BLOOD COUNT 5.14 10^6/uL (4.35-5.55); RED CELL DISTRIBUTION WIDTH 16.6 % (11.5-14.0); SEGMENTED NEUTROPHILS % (AUTO) 73.1 % (42-78); TOTAL CELLS COUNTED % (AUTO) 100 %; WHITE BLOOD COUNT 6.6 10^3/uL (4.0-10.5)
[2017-05-27 13:08] LABS: INTERNATIONAL RATION (INR) 1.26; PROTHROMBIN TIME 16.6 SEC (11.4-15.4)
[2017-05-27 13:28] LABS: ANION GAP 14 (5-19); BLOOD UREA NITROGEN 21 mg/dL (7-20); CALCIUM 9.8 mg/dL (8.4-10.2); CARBON DIOXIDE 25 mmol/L (22-30); CHLORIDE 103 mmol/L (98-107); GLUCOSE 122 mg/dL (75-110); POTASSIUM 3.9 mmol/L (3.6-5.0); SODIUM 141.6 mmol/L (137-145)
[2017-05-27 13:37] LABS: NT PRO BNP 185 pg/mL (5-900); TROPONIN I < 0.012 ng/mL
[2017-05-27] MEDS ORDERED: ENOXAPARIN SODIUM INJ 150 MG/1 ML DISP.SYRIN SUBCUT ONE (13:46)
--- NOTE | 2017-05-27 13:52 | ER Document Report ---
ED General - General Chief Complaint: Shortness Of Breath Stated Complaint: DIFFICULTY BREATHING Time Seen by Provider: 05/27/17 12:11 Notes: 61-year-old man with COPD CHF and pulmonary embolus last diagnosed in 2006 currently on Coumadin presents with shortness of breath which was acute onset and resolved within 20 minutes. No chest process pain or pressure. Similar to past episodes. No change in leg swelling. Took an inhaler but that did not help. Brought in by EMS. EKG normal. Currently at baseline in terms of chronic shortness of breath. TRAVEL OUTSIDE OF THE [place] IN LAST 30 DAYS: No - Related Data Allergies/Adverse Reactions: amlodipine Allergy (Verified 02/16/17 00:57) benazepril [Benazepril] Allergy (Verified 02/16/17 00:57) clonidine Allergy (Verified 02/16/17 00:57) codeine [Codeine] Allergy (Verified 02/16/17 00:57) haloperidol [From Haldol] Allergy (Verified 02/16/17 00:57) minoxidil Allergy (Verified 02/16/17 00:57) nalbuphine Allergy (Verified 02/16/17 00:57) oxycodone Allergy (Verified 02/16/17 00:57) Penicillins Allergy (Verified 02/16/17 00:57) perphenazine Allergy (Verified 02/16/17 00:57) propoxyphene Allergy (Verified 02/16/17 00:57) Sulfa (Sulfonamide Antibiotics) Allergy (Verified 02/16/17 00:57) topiramate Allergy (Verified 02/16/17 00:57) trifluoperazine [From Stelazine] Allergy (Verified 02/16/17 00:57) Past Medical History - Social History Smoking Status: Former Smoker Chew tobacco use (# tins/day): No Drug Abuse: None Family History: Reviewed & Not Pertinent Patient has suicidal ideation: No Patient has homicidal ideation: No - Past Medical History Cardiac Medical History: Reports: Hx Congestive Heart Failure, Hx Coronary Artery Disease, Hx DVT, Hx Hypercholesterolemia, Hx Hypertension, Hx Pulmonary Embolism Denies: Hx Atrial Fibrillation, Hx Heart Attack, Hx Peripheral Vascular Disease, Hx Heart Murmur Pulmonary Medical History: Reports: Hx Asthma, Hx COPD, Hx Pneumonia, Hx Sleep Apnea Denies: Hx Bronchitis, Hx Respiratory Failure, Hx Tuberculosis Neurological Medical History: Denies: Hx Cerebrovascular Accident, Hx Seizures Endocrine Medical History: Reports: Hx Diabetes Mellitus Type 2. Denies: Hx Graves' Disease, Hx Hyperthyroidism, Hx Hypothyroidism Renal/ Medical History: Denies: Hx Peritoneal Dialysis Malignancy Medical History: Denies Hx Leukemia, Denies Hx Lung Cancer GI Medical History: Reports: Hx Hiatal Hernia. Denies: Hx Crohn's Disease, Hx Gastroesophageal Reflux Disease, Hx Irritable Bowel, Hx Liver Failure, Hx Pancreatitis, Hx Ulcer Musculoskeltal Medical History: Denies Hx Arthritis, Denies Hx Fibromyalgia, Denies Hx Muscular Dystrophy Psychiatric Medical History: Reports: Hx Anxiety, Hx Depression, Hx Post Traumatic Stress Disorder, Hx Schizophrenia Denies: Hx Bipolar Disorder Traumatic Medical History: Reports: Hx Fractures Infectious Medical History: Denies: Hx HIV Past Surgical History: Reports: Hx Abdominal Surgery - hernia repair, Hx Cardiac Catheterization - 30% blockage, Hx Genitourinary Surgery - VASECTOMY, Hx Herniorrhaphy, Hx Oral Surgery - TOOTH EXTRACTION, Hx Orthopedic Surgery - PLATE SCREWS DISC AND BONE GRAFT: NECK, Hx Tonsillectomy. Denies: Hx Appendectomy, Hx Bowel Surgery, Hx Cholecystectomy, Hx Colostomy, Hx Coronary Artery Bypass Graft, Hx Gastric Bypass Surgery, Hx Pacemaker - Immunizations Hx Diphtheria, Pertussis, Tetanus Vaccination: No Hx Pneumococcal Vaccination: 04/07/09 Review of Systems - Review of Systems Notes: REVIEW OF SYSTEMS GEN: Denies fever, chills, weight loss ENT: Denies sore throat, nasal discharge, ear pain EYES: Denies blurry vision, eye pain, discharge CV: Denies chest pain, palpitations, edema RESP: D illness of breath morbidly obese. G GI: Denies abdominal pain, nausea, vomiting, diarrhea MSK: Denies joint pain/swelling, edema, SKIN: Denies rash, skin lesions LYMPH: Denies swollen glands/lymph nodes NEURO: Denies headache, focal weakness or numbness, dizziness PSYCH: Denies depression, suicidal or homicidal ideation PHYSICAL EXAMINATION General: Chronic severe bilateral leg edema symmetric no acute distress, well- nourished Head: Atraumatic, normocephalic ENT: Mouth normal, oropharynx moist, no exudates or tonsillar enlargement Eyes: Conjunctiva normal, pupils equal, lids normal Neck: No JVD, supple, no guarding CVS: Normal rate, regular rhythm, no murmurs Resp: No resp distress, equal and normal breath sounds bilaterally GI: Nondistended, soft, no tenderness to palpation, no rebound or guarding Ext: No deformities, no edema, normal range of motion in upper and lower ext Back: No CVA or midline TTP Skin: No rash, warm Lymphatic: No lymphadeopathy noted Neuro: Awake, alert. Face symmetric. GCS 15. Physical Exam - Vital signs Vitals: Resp 18 05/27/17 12:05 Course - Re-evaluation Re-evalutation: 05/27/17 14:01 Acute shortness of breath in a patient with reactive airway disease CHF and history of PE. As well as morbid obesity. Clinical exam does not reveal cause. EKG is unchanged. Sent chest x-ray which is negative. BNP is also normal which makes heart failure less likely. Possible etiologies include baseline obesity and deconditioning versus small pulmonary embolus. Patient's INR is subtherapeutic. 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 Spoke with him and his primary Dr. Hightower who agreed to do Lovenox for a week increase Coumadin to 10 per day, and will get his labs checked on Friday. Even if he has a small pulmonary embolus he looks well I think is stable for discharge home. I have discussed with the patient there likely diagnosis, aftercare plan, follow-up plans and my usual and customary return precautions. They verbalized understanding of this. - Vital Signs Vital signs: Temp Pulse Resp BP Pulse Ox 18 05/27/17 12:05 - Laboratory Result Diagrams: 05/27/17 12:38 05/27/17 12:38 Laboratory results interpreted by me: 05/27/17 05/27/17 05/27/17 12:38 12:38 12:38 RDW 16.6 H PT 16.6 H BUN 21 H Glucose 122 H - Diagnostic Test Radiology reviewed: Image reviewed, Reports reviewed - EKG Interpretation by Me EKG shows normal: Sinus rhythm Rate: Normal When compared to previous EKG there are: No significant change Discharge - Discharge Clinical Impression: Shortness of breath Condition: Good Disposition: HOME, SELF-CARE Additional Instructions: We are treating her presumptively for a blood clot in your lung with Lovenox. Your Coumadin level was too low so please start taking 10 mg per day for the next week. Dr. Hightower would like you to have your blood checked on Friday and she will see you in the office after that. Prescriptions: Enoxaparin Sodium [Lovenox Inj 100 mg/1 ml Disp.syrin] 100 mg SUBCUT Q12 #14 disp.syrin Referrals: YOSI HIGHTOWER MD [ACTIVE STAFF] - Follow up in 3-5 days
[2017-05-27 15:51] VITALS: BP 156/91
--- NOTE | 2017-05-27 18:51 | EKG REPORT ---
SEVERITY:- ABNORMAL ECG - SINUS RHYTHM NONSPECIFIC ST-T CHANGES ANTEROSEPTAL LEADS. : Confirmed by: Richard Go MD 27-May-2017 18:50:50
== END 2017-05-27 15:51 | disposition home or self-care (01) ==
LOC: ER 12:05
DX: R06.02 Shortness of breath (principal); J44.9 Chronic obstructive pulmonary disease, unspecified; I50.9 Heart failure, unspecified; Z79.01 Long term (current) use of anticoagulants; Z86.711 Personal history of pulmonary embolism; Z87.891 Personal history of nicotine dependence
CPT/HCPCS: 93005; 99285; 96372; 36415; 85025; 85610; 85730; 80048; 84484; 83880; 71045; 93010; J3490

== ENCOUNTER → 2017-05-30 | Outpatient (CLI) | payer MEDICARE, MEDICAID ==
[2017-05-30 11:33] LABS: INTERNATIONAL RATION (INR) 1.36; PROTHROMBIN TIME 17.6 SEC (11.4-15.4)
== END ==
LOC: OD 10:42
PROVIDERS: ATTEND Internal Medicine Nephrology
DX: I82.409 Acute embolism and thrombosis of unspecified deep veins of unspecified lower extremity (principal); Z86.711 Personal history of pulmonary embolism
CPT/HCPCS: 36415; 85610

== ENCOUNTER → 2017-06-03 | Outpatient (CLI) | payer MEDICARE, MEDICAID ==
[2017-06-03 13:22] LABS: INTERNATIONAL RATION (INR) 2.21; PROTHROMBIN TIME 25.7 SEC (11.4-15.4)
== END ==
LOC: OD 12:37
PROVIDERS: ATTEND Internal Medicine Nephrology
DX: I82.409 Acute embolism and thrombosis of unspecified deep veins of unspecified lower extremity (principal); Z86.711 Personal history of pulmonary embolism
CPT/HCPCS: 36415; 85610

== ENCOUNTER → 2017-06-10 | Outpatient (CLI) | payer MEDICARE, MEDICAID ==
[2017-06-10 14:15] LABS: INTERNATIONAL RATION (INR) 2.21; PROTHROMBIN TIME 25.7 SEC (11.4-15.4)
== END ==
LOC: OD 13:10
PROVIDERS: ATTEND Internal Medicine Nephrology
DX: I82.409 Acute embolism and thrombosis of unspecified deep veins of unspecified lower extremity (principal); Z86.711 Personal history of pulmonary embolism
CPT/HCPCS: 36415; 85610

== ENCOUNTER → 2017-06-13 | Outpatient (CLI) | payer MEDICARE, MEDICAID ==
[2017-06-13 09:24] LABS: INTERNATIONAL RATION (INR) 1.45; PROTHROMBIN TIME 18.5 SEC (11.4-15.4)
== END ==
LOC: OD 08:34
PROVIDERS: ATTEND Internal Medicine Nephrology
DX: I82.409 Acute embolism and thrombosis of unspecified deep veins of unspecified lower extremity (principal); Z86.711 Personal history of pulmonary embolism
CPT/HCPCS: 36415; 85610

== ENCOUNTER 2017-06-17 07:38 | Emergency (ER) | payer MEDICAID, MEDICARE ==
[2017-06-17 08:02] LABS: ABSOLUTE BASOPHILS # (AUTO) 0.1 10^3/uL (0.0-0.2); ABSOLUTE EOSINOPHILS # (AUTO) 0.3 10^3/uL (0.0-0.6); ABSOLUTE MONOCYTES (AUTO) 0.7 10^3/uL (0.1-1.4); ABSOLUTE NEUT (AUTO) 5.9 10^3/uL (1.7-8.2); BASOPHILS % (AUTO) 0.8 % (0-2); EOSINOPHILS % (AUTO) 3.6 % (0-6); HEMATOCRIT 40.3 % (37.9-51.0); HEMOGLOBIN 13.3 g/dL (13.5-17.0); LYMPHOCYTES % (AUTO) 22.4 % (13-45); MEAN CORPUSCULAR HEMOGLOBIN 27.8 pg (27.0-33.4); MEAN CORPUSCULAR HGB CONC 33.2 g/dL (32.0-36.0); MEAN CORPUSCULAR VOLUME 84 fl (80-97); PLATELET COUNT 275 10^3/uL (150-450); RED BLOOD COUNT 4.79 10^6/uL (4.35-5.55); RED CELL DISTRIBUTION WIDTH 16.5 % (11.5-14.0); SEGMENTED NEUTROPHILS % (AUTO) 65.2 % (42-78); TOTAL CELLS COUNTED % (AUTO) 100 %
--- NOTE | 2017-06-17 08:14 | ER Document Report ---
ED General - General Chief Complaint: Shortness Of Breath Stated Complaint: SHORTNESS OF BREATH Time Seen by Provider: 06/17/17 07:43 Notes: Patient is a 61-year-old male who presents to the emergency department with a chief complaint of shortness of breath for the past 12 hours. Patient states that he stayed up all evening playing on the computer and he had shortness of breath which he feels got worse over the past 6 hours. He states that he did to his home Pro Air which helped but did not completely relieve his shortness of breath. EMS states that they gave albuterol, Atrovent and Solu-Medrol with significant improving in wheezing that they noted on their exam. He was satting 94% on room air now 99-100% At this time patient states that his shortness of breath is improved but he still does not feel at his baseline. Admits to shortness of breath, dyspnea on exertion but denies any chest pain, chest pressure. He admits to weight gain, shortness of breath, nonproductive dry cough. Past medical history significant for diabetes, hyperlipidemia, coronary disease , BiPAP for sleep apnea, PE in 2006 on Eliquis, DVT in the right leg, hypertension, COPD, CHF. States that he ran out of his home Bumex which she is taking 4 mg twice daily as well as his home Advair. Primary care is with Dr. Hightower and follows with Dr. Lorenzo for pulmonology TRAVEL OUTSIDE OF THE [place] IN LAST 30 DAYS: No - Related Data Allergies/Adverse Reactions: amlodipine Allergy (Verified 02/16/17 00:57) benazepril [Benazepril] Allergy (Verified 02/16/17 00:57) clonidine Allergy (Verified 02/16/17 00:57) codeine [Codeine] Allergy (Verified 02/16/17 00:57) haloperidol [From Haldol] Allergy (Verified 02/16/17 00:57) minoxidil Allergy (Verified 02/16/17 00:57) nalbuphine Allergy (Verified 02/16/17 00:57) oxycodone Allergy (Verified 02/16/17 00:57) Penicillins Allergy (Verified 02/16/17 00:57) perphenazine Allergy (Verified 02/16/17 00:57) propoxyphene Allergy (Verified 02/16/17 00:57) Sulfa (Sulfonamide Antibiotics) Allergy (Verified 02/16/17 00:57) topiramate Allergy (Verified 02/16/17 00:57) trifluoperazine [From Stelazine] Allergy (Verified 02/16/17 00:57) Past Medical History - Social History Smoking Status: Current Every Day Smoker Family History: Reviewed & Not Pertinent - Past Medical History Cardiac Medical History: Reports: Hx Congestive Heart Failure, Hx Coronary Artery Disease, Hx DVT, Hx Hypercholesterolemia, Hx Hypertension, Hx Pulmonary Embolism Denies: Hx Atrial Fibrillation, Hx Heart Attack, Hx Peripheral Vascular Disease, Hx Heart Murmur Pulmonary Medical History: Reports: Hx Asthma, Hx COPD, Hx Pneumonia, Hx Sleep Apnea Denies: Hx Bronchitis, Hx Respiratory Failure, Hx Tuberculosis Neurological Medical History: Denies: Hx Cerebrovascular Accident, Hx Seizures Endocrine Medical History: Reports: Hx Diabetes Mellitus Type 2. Denies: Hx Graves' Disease, Hx Hyperthyroidism, Hx Hypothyroidism Renal/ Medical History: Denies: Hx Peritoneal Dialysis Malignancy Medical History: Denies Hx Leukemia, Denies Hx Lung Cancer GI Medical History: Reports: Hx Hiatal Hernia. Denies: Hx Crohn's Disease, Hx Gastroesophageal Reflux Disease, Hx Irritable Bowel, Hx Liver Failure, Hx Pancreatitis, Hx Ulcer Musculoskeltal Medical History: Denies Hx Arthritis, Denies Hx Fibromyalgia, Denies Hx Muscular Dystrophy Psychiatric Medical History: Reports: Hx Anxiety, Hx Depression, Hx Post Traumatic Stress Disorder, Hx Schizophrenia Denies: Hx Bipolar Disorder Traumatic Medical History: Reports: Hx Fractures Infectious Medical History: Denies: Hx HIV Past Surgical History: Reports: Hx Abdominal Surgery - hernia repair, Hx Cardiac Catheterization - 30% blockage, Hx Genitourinary Surgery - VASECTOMY, Hx Herniorrhaphy, Hx Oral Surgery - TOOTH EXTRACTION, Hx Orthopedic Surgery - PLATE SCREWS DISC AND BONE GRAFT: NECK, Hx Tonsillectomy. Denies: Hx Appendectomy, Hx Bowel Surgery, Hx Cholecystectomy, Hx Colostomy, Hx Coronary Artery Bypass Graft, Hx Gastric Bypass Surgery, Hx Pacemaker - Immunizations Hx Diphtheria, Pertussis, Tetanus Vaccination: No Hx Pneumococcal Vaccination: 04/07/09 Review of Systems - Review of Systems Notes: REVIEW OF SYSTEMS: CONSTITUTIONAL : Denies fever, chills, or sweats. Denies recent illness. EENT: Denies eye, ear, throat, or mouth pain or symptoms. Denies nasal or sinus congestion or discharge. Denies throat, tongue, or mouth swelling or difficulty swallowing. CARDIOVASCULAR: Denies chest pain. Denies palpitations or racing or irregular heart beat. h/o b/l chronic Ankle edema. RESPIRATORY: See HPI Denies cough, cold, or chest congestion. GASTROINTESTINAL: Denies abdominal pain or distention. Denies nausea, vomiting , or diarrhea. Denies blood in vomitus, stools, or per rectum. Denies black, tarry stools. Denies constipation. GENITOURINARY: Denies difficulty urinating, painful urination, burning, frequency, blood in urine, or discharge. FEMALE GENITOURINARY: Denies vaginal bleeding, heavy or abnormal periods, irregular periods. Denies vaginal discharge or odor. MUSCULOSKELETAL: Denies any muscle spasms, difficulty walking, extremity pain SKIN: Denies rash, lesions or sores. HEMATOLOGIC : Denies easy bruising or bleeding. LYMPHATIC: Denies swollen, enlarged glands. NEUROLOGICAL: Denies confusion or altered mental status. Denies passing out or loss of consciousness. Denies dizziness or lightheadedness. Denies headache. Denies weakness or paralysis or loss of use of either side. Denies problems with gait or speech. Denies sensory loss, numbness, or tingling. Denies seizures. PSYCHIATRIC: Denies anxiety or stress. Denies depression, suicidal ideation, or homicidal ideation. ALL OTHER SYSTEMS REVIEWED AND NEGATIVE. Dictation was performed using [facility] voice recognition software Physical Exam - Vital signs Vitals: Temp Pulse Resp BP Pulse Ox 97.9 F 71 16 149/72 H 99 06/17/17 07:55 06/17/17 07:55 06/17/17 07:55 06/17/17 07:55 06/17/17 07:55 - Notes Notes: PHYSICAL EXAM GENERAL: Alert, interacts well. HEAD: Normocephalic, atraumatic. EYES: Pupils equal, round, and reactive to light. Extraocular movements intact. ENT: Oral mucosa moist, tongue midline. NECK: Full range of motion. Supple. Trachea midline. LUNGS: Bilateral expiratory wheezes without rales or rhonchi. No respiratory distress. HEART: Regular rate and rhythm. No murmurs, gallops, or rubs. ABDOMEN: Soft, obese, nondistended, nontender. No guarding, rebound, or rigidity.. Bowel sounds present in all 4 quadrants. EXTREMITIES: Moves all 4 extremities spontaneously. Bilateral chronic edema, radial and dorsalis pedis pulses 2/4 bilaterally. No cyanosis. NEUROLOGICAL: Alert and oriented x4. Normal speech. PSYCH: Normal affect, normal mood. SKIN: Warm, dry, normal turgor. No rashes or lesions noted. Course - Re-evaluation Re-evalutation: 06/17/17 08:49 Patient is a 61-year-old male who is hemodynamically stable, no acute distress and afebrile. Patient clinically improved after breathing treatment was ambulated he was tachypneic satting 94% on room air with audible wheezing. presentation is consistent with a COPD exacerbation. There is no evidence of pneumonia, vascular congestion on chest x-ray. BNP is stable. Troponin stable. No evidence of EKG changes. Low clinical suspicion for any ACS, PE given absence of tachycardia, chest pain, hypoxia. Patient to receive IV Lasix and DuoNeb and will ambulate again. 06/17/17 10:12 Patient states he feels much better after Lasix and DuoNeb treatment. Ambulated around the department satting 98% on room air without any evidence of tachycardia or tachypnea. given the patient has been out of his Bumex and unchanged clear on dose, did discuss with Dr. Hightower's office who states that they will follow-up with him today to set up a follow-up appointment to review his home medications. Did discuss with him to take 2 mg twice daily of Bumex at home and to touch base with Dr. Hightower's office upon discharge. Patient agrees with plan and is stable for discharge home - Vital Signs Vital signs: Temp Pulse Resp BP Pulse Ox 98.0 F 76 20 170/77 H 96 06/17/17 11:08 06/17/17 11:08 06/17/17 11:08 06/17/17 11:08 06/17/17 11:08 - Laboratory Result Diagrams: 06/17/17 07:09 06/17/17 07:09 Laboratory results interpreted by me: 06/17/17 06/17/17 07:09 07:09 Hgb 13.3 L RDW 16.5 H Glucose 139 H Direct Bilirubin 0.5 H Total Protein 8.3 H - Diagnostic Test Radiology reviewed: Image reviewed, Reports reviewed - EKG Interpretation by Me EKG shows normal: Sinus rhythm Rate: Normal Rhythm: NSR When compared to previous EKG there are: No significant change Discharge - Discharge Clinical Impression: Morbid obesity with BMI of 50.0-59.9, adult COPD (chronic obstructive pulmonary disease) Qualifiers: COPD type: unspecified COPD Qualified Code(s): J44.9 - Chronic obstructive pulmonary disease, unspecified CHF (congestive heart failure) Qualifiers: Heart failure type: unspecified Heart failure chronicity: chronic Qualified Code(s): I50.9 - Heart failure, unspecified Condition: Good Disposition: HOME, SELF-CARE Additional Instructions: Chronic Obstructive Lung Disease You have chronic obstructive lung disease (COPD). The symptoms come from emphysema (damage to small airways, with trapping of air in large sacks in the lung) and chronic bronchitis (repeated infection and damage to larger airways). The cause is almost always cigarette smoking, although dust exposure, asthma, and infections contribute. You should avoid fumes, dust, and smoke (especially tobacco smoke). Your condition will flare from time to time. There is no cure, but the symptoms can be treated. Bronchodilators (asthma medicine) are often helpful. Antibiotics help when infection is present. When shortness of breath is severe, we may prescribe cortisone medication. If medicine doesn't help enough, we can arrange for you to have an oxygen tank at home. Notify your doctor at once if sputum becomes thick, foul, or bloody, if you develop a fever or chest pain, or if your shortness of breath worsens. STEROID MEDICATION: You have been given an injection of or oral medicine of the cortisone/ steroid class. This medication is used to control inflammation or allergy. Sebastián t is usually only given for a short period of time, until the acute process subsides. There are usually no side effects from short-term use of cortisone-like medications. Some persons feel an increased sense of well-being and are not sleepy at bedtime. Long-term use of cortisone medications is best avoided, unless required for a severe condition. If your condition does not remit, or relapses after the course of corticosteroid medication, you should consult your physician. INHALED BRONCHODILATORS: You have received treatment(s) of and/or prescription for an inhaled bronchodilator -- a medication which stimulates the airways in the lung to dilate. This improves the flow of air in asthma, bronchitis, and emphysema. These medicines have some similarity to adrenaline, and can cause similar side effects: shakiness, racing heart, and a sense of nervousness. These side effects decrease with time. Contact your doctor if these side effects are severe. Do not over-use the medicine. Too-frequent use of the inhaler may make it ineffective. Call your doctor if the inhaler is not controlling your symptoms at the prescribed doses. FOLLOW-UP CARE: If you have been referred to a physician for follow-up care, call the physician s office for an appointment as you were instructed or within the next two days. If you experience worsening or a significant change in your symptoms, notify the physician immediately or return to the Emergency Department at any time for re-evaluation. Prescriptions: Prednisone [Deltasone 20 mg Tablet] 3 tab PO DAILY 5 Days tablet Referrals: YOSI HIGHTOWER MD [Primary Care Provider] - Follow up tomorrow
[2017-06-17 08:20] LABS: ALANINE AMINOTRANSFERASE 35 U/L (21-72); ALBUMIN 4.2 g/dL (3.5-5.0); ALKALINE PHOSPHATASE 76 U/L (38-126); ANION GAP 7 (5-19); ASPARTATE AMINO TRANSFERASE 27 U/L (17-59); BILIRUBIN,DIRECT 0.5 mg/dL (0.0-0.4); BILIRUBIN,TOTAL 0.5 mg/dL (0.2-1.3); BLOOD UREA NITROGEN 15 mg/dL (7-20); CALCIUM 9.3 mg/dL (8.4-10.2); CARBON DIOXIDE 30 mmol/L (22-30); CHLORIDE 105 mmol/L (98-107); CREATINE KINASE 63 U/L (55-170); GLUCOSE 139 mg/dL (75-110); POTASSIUM 3.9 mmol/L (3.6-5.0); SODIUM 142.4 mmol/L (137-145); TOTAL PROTEIN 8.3 g/dL (6.3-8.2)
[2017-06-17 08:22] LABS: APPEARANCE,URINE CLEAR; BILIRUBIN,URINE NEGATIVE (NEGATIVE); COLOR,URINE STRAW; GLUCOSE, URINE NEGATIVE (NEGATIVE); KETONES,URINE NEGATIVE (NEGATIVE); LEUKOCYTE ESTERASE,URINE NEGATIVE (NEGATIVE); NITRITE,URINE NEGATIVE (NEGATIVE); PROTEIN,URINE NEGATIVE (NEGATIVE); URINE SPECIFIC GRAVITY 1.004; UROBILINOGEN,URINE NEGATIVE mg/dL (<2.0)
[2017-06-17 08:32] LABS: CREATINE KINASE MB 0.87 ng/mL (<4.55); NT PRO BNP 249 pg/mL (5-900)
[2017-06-17 08:34] LABS: TROPONIN I < 0.012 ng/mL
--- NOTE | 2017-06-17 08:40 | RADIOLOGY REPORT (SQ) ---
EXAM DESCRIPTION: CHEST SINGLE VIEW COMPLETED DATE/TIME: 06/17/2017 8:32 am REASON FOR STUDY: cough, SOB COMPARISON: 05/27/2017 EXAM PARAMETERS: NUMBER OF VIEWS: One view. TECHNIQUE: Single frontal radiographic view of the chest acquired. RADIATION DOSE: NA LIMITATIONS: None. FINDINGS: LUNGS AND PLEURA: No opacities, masses or pneumothorax. No pleural effusion. MEDIASTINUM AND HILAR STRUCTURES: No masses. Contour normal. HEART AND VASCULAR STRUCTURES: Stable cardiomegaly BONES: No acute findings. HARDWARE: None in the chest. OTHER: No other significant finding. IMPRESSION: NO ACUTE RADIOGRAPHIC FINDING IN THE CHEST. Stable cardiomegaly. TECHNICAL DOCUMENTATION: JOB ID: [id number] [employer]- All Rights Reserved Reading location - IP/workstation name: [email or web address]
[2017-06-17] MEDS ORDERED: ALBUTEROL SULFATE 0.083% NEB 2.5 MG/3 ML AMPUL NEB ONE (08:42)
[2017-06-17] MEDS ORDERED: FUROSEMIDE INJ/PF 20 MG/2 ML SDV IV ONE (08:49)
[2017-06-17] MEDS ORDERED: IPRATROPIUM/ALBUTEROL 0.5-2.5 MG/3 ML AMPUL NEB ONE (09:24)
[2017-06-17 11:09] VITALS: BP 170/77
--- NOTE | 2017-06-17 12:43 | EKG REPORT ---
SEVERITY:- NORMAL ECG - SINUS RHYTHM : Confirmed by: Richard Go MD 17-Jun-2017 12:43:01
== END 2017-06-17 11:05 | disposition home or self-care (01) ==
LOC: ER 07:38
DX: J44.9 Chronic obstructive pulmonary disease, unspecified (principal); T48.6X6A Underdosing of antiasthmatics, initial encounter; I11.0 Hypertensive heart disease with heart failure; I50.9 Heart failure, unspecified; T50.1X6A Underdosing of loop [high-ceiling] diuretics, initial encounter; Z91.128 Patient's intentional underdosing of medication regimen for other reason; Z91.14 Patient's other noncompliance with medication regimen; R06.02 Shortness of breath; R05 Cough; E66.01 Morbid (severe) obesity due to excess calories; Z68.43 Body mass index [BMI] 50.0-59.9, adult; E11.9 Type 2 diabetes mellitus without complications; I25.10 Atherosclerotic heart disease of native coronary artery without angina pectoris; F17.200 Nicotine dependence, unspecified, uncomplicated; Z86.711 Personal history of pulmonary embolism; Z86.718 Personal history of other venous thrombosis and embolism; Z79.01 Long term (current) use of anticoagulants; Z88.8 Allergy status to other drugs, medicaments and biological substances; Z88.5 Allergy status to narcotic agent; Z88.0 Allergy status to penicillin; Z88.2 Allergy status to sulfonamides; Z87.01 Personal history of pneumonia (recurrent)
CPT/HCPCS: 93005; 94640 ×2; 99285; 96374; 36415; 82553; 82550; 85025; 80053; 81001; 84484; 83880; 71045; 93010; J1940; A9270 ×2; J7620

== ENCOUNTER 2017-06-19 21:11 | Emergency (ER) | payer MEDICARE, MEDICAID ==
[2017-06-19 21:51] LABS: APPEARANCE,URINE CLEAR; BILIRUBIN,URINE NEGATIVE (NEGATIVE); COLOR,URINE RED; GLUCOSE, URINE NEGATIVE (NEGATIVE); KETONES,URINE NEGATIVE (NEGATIVE); LEUKOCYTE ESTERASE,URINE NEGATIVE (NEGATIVE); NITRITE,URINE NEGATIVE (NEGATIVE); PROTEIN,URINE 30 mg/dL (NEGATIVE); URINE SPECIFIC GRAVITY 1.004; UROBILINOGEN,URINE NEGATIVE mg/dL (<2.0)
--- NOTE | 2017-06-19 21:57 | ER Document Report ---
ED GI/ - General Chief Complaint: Urinary Problem Stated Complaint: BLOOD IN URINE Time Seen by Provider: 06/19/17 21:30 Notes: Patient is a 61-year-old male that comes emergency department for chief complaint of hematuria. He also states that he has pain in his back, seems to be on both sides, this started today. He denies bleeding without urination, however the last 4 times he has urinated today he is seen blood. He is on Eliquis, he was started on this on Friday, previously he was on Coumadin, he states he has a DVT that he is being treated for currently. He denies any nausea vomiting, fever or chills. He denies any other complaints. Past medical history includes CAD, type 2 diabetes, PE. TRAVEL OUTSIDE OF THE [place] IN LAST 30 DAYS: No - Related Data Allergies/Adverse Reactions: amlodipine Allergy (Verified 02/16/17 00:57) benazepril [Benazepril] Allergy (Verified 02/16/17 00:57) clonidine Allergy (Verified 02/16/17 00:57) codeine [Codeine] Allergy (Verified 02/16/17 00:57) haloperidol [From Haldol] Allergy (Verified 02/16/17 00:57) minoxidil Allergy (Verified 02/16/17 00:57) nalbuphine Allergy (Verified 02/16/17 00:57) oxycodone Allergy (Verified 02/16/17 00:57) Penicillins Allergy (Verified 02/16/17 00:57) perphenazine Allergy (Verified 02/16/17 00:57) propoxyphene Allergy (Verified 02/16/17 00:57) Sulfa (Sulfonamide Antibiotics) Allergy (Verified 02/16/17 00:57) topiramate Allergy (Verified 02/16/17 00:57) trifluoperazine [From Stelazine] Allergy (Verified 02/16/17 00:57) Past Medical History - General Information source: Patient - Social History Smoking Status: Former Smoker Frequency of alcohol use: None Drug Abuse: None Lives with: Family Family History: Reviewed & Not Pertinent - Past Medical History Cardiac Medical History: Reports: Hx Congestive Heart Failure, Hx Coronary Artery Disease, Hx DVT, Hx Hypercholesterolemia, Hx Hypertension, Hx Pulmonary Embolism Denies: Hx Atrial Fibrillation, Hx Heart Attack, Hx Peripheral Vascular Disease, Hx Heart Murmur Pulmonary Medical History: Reports: Hx Asthma, Hx COPD, Hx Pneumonia, Hx Sleep Apnea Denies: Hx Bronchitis, Hx Respiratory Failure, Hx Tuberculosis Neurological Medical History: Denies: Hx Cerebrovascular Accident, Hx Seizures Endocrine Medical History: Reports: Hx Diabetes Mellitus Type 2. Denies: Hx Graves' Disease, Hx Hyperthyroidism, Hx Hypothyroidism Renal/ Medical History: Denies: Hx Peritoneal Dialysis Malignancy Medical History: Denies Hx Leukemia, Denies Hx Lung Cancer GI Medical History: Reports: Hx Hiatal Hernia. Denies: Hx Crohn's Disease, Hx Gastroesophageal Reflux Disease, Hx Irritable Bowel, Hx Liver Failure, Hx Pancreatitis, Hx Ulcer Musculoskeltal Medical History: Denies Hx Arthritis, Denies Hx Fibromyalgia, Denies Hx Muscular Dystrophy Psychiatric Medical History: Reports: Hx Anxiety, Hx Depression, Hx Post Traumatic Stress Disorder, Hx Schizophrenia Denies: Hx Bipolar Disorder Traumatic Medical History: Reports: Hx Fractures Infectious Medical History: Denies: Hx HIV Past Surgical History: Reports: Hx Abdominal Surgery - hernia repair, Hx Cardiac Catheterization - 30% blockage, Hx Genitourinary Surgery - VASECTOMY, Hx Herniorrhaphy, Hx Oral Surgery - TOOTH EXTRACTION, Hx Orthopedic Surgery - PLATE SCREWS DISC AND BONE GRAFT: NECK, Hx Tonsillectomy. Denies: Hx Appendectomy, Hx Bowel Surgery, Hx Cholecystectomy, Hx Colostomy, Hx Coronary Artery Bypass Graft, Hx Gastric Bypass Surgery, Hx Pacemaker - Immunizations Hx Diphtheria, Pertussis, Tetanus Vaccination: No Hx Pneumococcal Vaccination: 04/07/09 Review of Systems - Review of Systems Constitutional: No symptoms reported EENT: No symptoms reported Cardiovascular: See HPI Respiratory: No symptoms reported Gastrointestinal: See HPI Genitourinary: See HPI Male Genitourinary: See HPI Musculoskeletal: No symptoms reported Skin: No symptoms reported Hematologic/Lymphatic: No symptoms reported Neurological/Psychological: No symptoms reported Physical Exam - Vital signs Vitals: Resp Pulse Ox 22 H 96 06/19/17 21:21 06/19/17 21:21 Interpretation: Normal - General General appearance: Appears well, Alert In distress: None - HEENT Head: Normocephalic, Atraumatic Eyes: Normal Pupils: PERRL - Respiratory Respiratory status: Tachypnea. No: Respiratory distress Breath sounds: Decreased air movement - Cardiovascular Rhythm: Regular. No: Tachycardia Heart sounds: Normal auscultation, S1 appreciated, S2 appreciated Murmur: No - Abdominal Inspection: Normal Distension: No distension Bowel sounds: Normal Tenderness: Nontender. No: Tender, Guarding Organomegaly: No organomegaly - Genitourinary Inspection: Normal Tenderness: Nontender Cremasteric reflex: Normal Scrotum: Normal Notes: Ivone Goel RN present at bedside - Back Back: Normal, Nontender. No: Tender, CVA tenderness - Extremities General upper extremity: Normal inspection, Nontender, Normal color, Normal ROM , Normal temperature General lower extremity: Normal inspection, Nontender, Normal color, Normal ROM , Normal temperature, Normal weight bearing. No: Zahira's sign - Neurological Neuro grossly intact: Yes Cognition: Normal Orientation: AAOx4 [place] Coma Scale Eye Opening: Spontaneous [place] Coma Scale Verbal: Oriented [place] Coma Scale Motor: Obeys Commands [place] Coma Scale Total: 15 Speech: Normal Motor strength normal: LUE, RUE, LLE, RLE Sensory: Normal - Psychological Associated symptoms: Normal affect, Normal mood - Skin Skin Temperature: Warm Skin Moisture: Dry Skin Color: Normal Course - Re-evaluation Re-evalutation: Patient does have some tachypnea on exam, however he states his breathing is much better than before and he is currently being treated for it, evaluated a couple of days ago, declines evaluation for this. Abdomen soft, genital exam is unremarkable, patient is not hypotensive or tachycardic. No bleeding unless he urinates. Urine does show hematuria but no infection. CBC does not show concerning hemoglobin, chemistry shows normal renal functioning. CAT scan shows 9 mm right-sided proximal ureterolithiasis. Suggests that this is the cause of the hematuria. Discussed with patient, provided a copy of the report. Patient rarely has any pain, no vomiting, no fever, no infection evidence. However because of his bleeding, Eliquis use, and large stone urology was contacted for follow-up. I spoke with Dr. Gong, urology offset plate preparation supervisor, after discussion of the patient she recommends the patient follow up in the office tomorrow at [facility]. - Vital Signs Vital signs: Temp Pulse Resp BP Pulse Ox 97.2 F 21 H 165/91 H 96 06/20/17 00:45 06/20/17 00:00 06/19/17 23:31 06/19/17 23:18 - Laboratory Result Diagrams: 06/19/17 22:05 06/19/17 22:05 Laboratory results interpreted by me: 06/19/17 06/19/17 06/19/17 21:20 22:05 22:05 WBC 10.7 H Hgb 13.3 L RDW 16.5 H Absolute Neutrophils 8.3 H Glucose 194 H Urine Protein 30 H Urine Blood LARGE H Discharge - Discharge Clinical Impression: Flank pain, Ureterolithiasis Hematuria Qualifiers: Hematuria type: gross Qualified Code(s): R31.0 - Gross hematuria Condition: Stable Disposition: HOME, SELF-CARE Additional Instructions: Your blood counts do not suggest significant blood loss, however your workup shows a 9 mm kidney stone on the right side that his passing in the ureter. You must have close urology follow-up for evaluation and treatment of this. I spoke with Dr. Beltran soliz, please follow-up with [facility] , call tomorrow morning after 8 AM, see the number and details listed below. Return immediately if you worsen including worsening pain, fever of 100.4 or greater, uncontrolled vomiting, or any other concerning symptoms. [facility] [address] [place] , [facility] [address] Prescriptions: Morphine Sulfate [Morphine Ir 15 Mg Tablet] 15 mg PO Q4HP PRN #15 tablet PRN Reason: Docusate Sodium [Colace 100 mg Capsule] 100 mg PO DAILY #30 capsule Ondansetron [Zofran Odt 4 mg Tablet] 1 - 2 tab PO Q4H PRN #15 tab.rapdis PRN Reason: For Nausea/Vomiting
[2017-06-19 22:40] LABS: ALANINE AMINOTRANSFERASE 48 U/L (21-72); ALBUMIN 4.2 g/dL (3.5-5.0); ALKALINE PHOSPHATASE 65 U/L (38-126); ANION GAP 10 (5-19); ASPARTATE AMINO TRANSFERASE 25 U/L (17-59); BILIRUBIN,DIRECT 0.2 mg/dL (0.0-0.4); BILIRUBIN,TOTAL 0.3 mg/dL (0.2-1.3); BLOOD UREA NITROGEN 19 mg/dL (7-20); CARBON DIOXIDE 29 mmol/L (22-30); CHLORIDE 101 mmol/L (98-107); GLUCOSE 194 mg/dL (75-110); POTASSIUM 4.1 mmol/L (3.6-5.0); SODIUM 140.1 mmol/L (137-145); TOTAL PROTEIN 7.1 g/dL (6.3-8.2)
[2017-06-19 22:57] LABS: ABSOLUTE BASOPHILS # (AUTO) 0.1 10^3/uL (0.0-0.2); ABSOLUTE LYMPHOCYTES (AUTO) 1.7 10^3/uL (0.5-4.7); ABSOLUTE MONOCYTES (AUTO) 0.7 10^3/uL (0.1-1.4); ABSOLUTE NEUT (AUTO) 8.3 10^3/uL (1.7-8.2); BASOPHILS % (AUTO) 0.5 % (0-2); EOSINOPHILS % (AUTO) 0.4 % (0-6); HEMATOCRIT 39.9 % (37.9-51.0); HEMOGLOBIN 13.3 g/dL (13.5-17.0); LYMPHOCYTES % (AUTO) 15.7 % (13-45); MEAN CORPUSCULAR HEMOGLOBIN 27.8 pg (27.0-33.4); MEAN CORPUSCULAR HGB CONC 33.3 g/dL (32.0-36.0); MEAN CORPUSCULAR VOLUME 84 fl (80-97); MONOCYTES % (AUTO) 6.6 % (3-13); PLATELET COUNT 270 10^3/uL (150-450); RED BLOOD COUNT 4.78 10^6/uL (4.35-5.55); RED CELL DISTRIBUTION WIDTH 16.5 % (11.5-14.0); SEGMENTED NEUTROPHILS % (AUTO) 76.8 % (42-78); TOTAL CELLS COUNTED % (AUTO) 100 %; WHITE BLOOD COUNT 10.7 10^3/uL (4.0-10.5)
--- NOTE | 2017-06-19 23:32 | RADIOLOGY REPORT (SQ) ---
EXAM DESCRIPTION: CT LTD RENAL STONE PROTOCOL ON CLINICAL HISTORY: 61 years Male, flank pain, hematuria COMPARISON: None. TECHNIQUE: No contrast. Coronal and sagittal reformat. This exam was performed according to our departmental dose-optimization program, which includes automated exposure control, adjustment of the mA and/or kV according to patient size and/or use of iterative reconstruction technique. Limitation: As below. FINDINGS: 0.9 cm right ureteral pelvic junction stone with minimal right hydronephrosis. Moderate inflamed mesenteric fat of the mid abdomen, nonspecific. 3.3 cm right adrenal adenoma, -22HU. The anterolateral right upper quadrant is minimally clipped off the field of imaging due to body habitus. Mild disc desiccation and spondylosis. Small cholelithiasis. Normal appendix. Mild intervertebral wedging at the thoracolumbar junction levels. Unenhanced inferior chest, abdominopelvic structures, and musculoskeleton appear otherwise grossly unremarkable. Impression: 1. A 0.9 cm right UPJ stone with low-grade obstruction. 2. Cholelithiasis.
[2017-06-20 00:37] VITALS: BP 165/91
== END 2017-06-20 00:47 | disposition home or self-care (01) ==
LOC: ER 21:11
DX: N13.2 Hydronephrosis with renal and ureteral calculous obstruction (principal); R31.0 Gross hematuria; I25.10 Atherosclerotic heart disease of native coronary artery without angina pectoris; E11.9 Type 2 diabetes mellitus without complications; I82.409 Acute embolism and thrombosis of unspecified deep veins of unspecified lower extremity; I10 Essential (primary) hypertension; J44.9 Chronic obstructive pulmonary disease, unspecified; R06.82 Tachypnea, not elsewhere classified; Z88.8 Allergy status to other drugs, medicaments and biological substances; Z88.5 Allergy status to narcotic agent; Z88.0 Allergy status to penicillin; Z88.2 Allergy status to sulfonamides; Z88.6 Allergy status to analgesic agent; Z87.891 Personal history of nicotine dependence
CPT/HCPCS: 36415; 76380; 80053; 81001; 85025; 99284

== ENCOUNTER 2017-07-30 21:06 | Emergency (ER) | payer MEDICARE, MEDICAID ==
[2017-07-30] MEDS ORDERED: ASPIRIN 325 MG TABLET PO ONE (21:20)
[2017-07-30] MEDS ORDERED: NITROGLYCERIN 0.4 MG/TAB 25 TAB/BOTTLE SL PRN (21:20)
--- NOTE | 2017-07-30 21:21 | ER Document Report ---
ED Respiratory Problem - General Chief Complaint: Shortness Of Breath Stated Complaint: TROUBLE BREATHING Time Seen by Provider: 07/30/17 21:19 Notes: The patient is a 61-year-old male, past medical history CHF, COPD, PE (on Eliquiis), presents with 2 days of worsening shortness of breath and dyspnea on exertion. He is also noticing increased bilateral leg swelling. He had mild chest pain when he takes deep breaths, but this is unchanged for the past several months when he was diagnosed with a PE. He takes Bumex 2 mg twice a day. He denies cough, hemoptysis, fevers, nausea, vomiting, abdominal pain, calf pain, back pain or syncope. TRAVEL OUTSIDE OF THE [place] IN LAST 30 DAYS: No - Related Data Allergies/Adverse Reactions: amlodipine Allergy (Verified 02/16/17 00:57) benazepril [Benazepril] Allergy (Verified 02/16/17 00:57) clonidine Allergy (Verified 02/16/17 00:57) codeine [Codeine] Allergy (Verified 02/16/17 00:57) haloperidol [From Haldol] Allergy (Verified 02/16/17 00:57) minoxidil Allergy (Verified 02/16/17 00:57) nalbuphine Allergy (Verified 02/16/17 00:57) oxycodone Allergy (Verified 02/16/17 00:57) Penicillins Allergy (Verified 02/16/17 00:57) perphenazine Allergy (Verified 02/16/17 00:57) propoxyphene Allergy (Verified 02/16/17 00:57) Sulfa (Sulfonamide Antibiotics) Allergy (Verified 02/16/17 00:57) topiramate Allergy (Verified 02/16/17 00:57) trifluoperazine [From Stelazine] Allergy (Verified 02/16/17 00:57) Past Medical History - General Information source: Patient - Social History Smoking Status: Former Smoker - 40 year smoker, quit 2004 Family History: Reviewed & Not Pertinent - Past Medical History Cardiac Medical History: Reports: Hx Congestive Heart Failure, Hx Coronary Artery Disease, Hx DVT, Hx Hypercholesterolemia, Hx Hypertension, Hx Pulmonary Embolism Denies: Hx Atrial Fibrillation, Hx Heart Attack, Hx Peripheral Vascular Disease, Hx Heart Murmur Pulmonary Medical History: Reports: Hx Asthma, Hx COPD, Hx Pneumonia, Hx Sleep Apnea Denies: Hx Bronchitis, Hx Respiratory Failure, Hx Tuberculosis Neurological Medical History: Denies: Hx Cerebrovascular Accident, Hx Seizures Endocrine Medical History: Reports: Hx Diabetes Mellitus Type 2. Denies: Hx Graves' Disease, Hx Hyperthyroidism, Hx Hypothyroidism Renal/ Medical History: Denies: Hx Peritoneal Dialysis Malignancy Medical History: Denies Hx Leukemia, Denies Hx Lung Cancer GI Medical History: Reports: Hx Hiatal Hernia. Denies: Hx Crohn's Disease, Hx Gastroesophageal Reflux Disease, Hx Irritable Bowel, Hx Liver Failure, Hx Pancreatitis, Hx Ulcer Musculoskeltal Medical History: Denies Hx Arthritis, Denies Hx Fibromyalgia, Denies Hx Muscular Dystrophy Psychiatric Medical History: Reports: Hx Anxiety, Hx Depression, Hx Post Traumatic Stress Disorder, Hx Schizophrenia Denies: Hx Bipolar Disorder Traumatic Medical History: Reports: Hx Fractures Infectious Medical History: Denies: Hx HIV Past Surgical History: Reports: Hx Abdominal Surgery - hernia repair, Hx Cardiac Catheterization - 30% blockage, Hx Genitourinary Surgery - VASECTOMY, Hx Herniorrhaphy, Hx Oral Surgery - TOOTH EXTRACTION, Hx Orthopedic Surgery - PLATE SCREWS DISC AND BONE GRAFT: NECK, Hx Tonsillectomy. Denies: Hx Appendectomy, Hx Bowel Surgery, Hx Cholecystectomy, Hx Colostomy, Hx Coronary Artery Bypass Graft, Hx Gastric Bypass Surgery, Hx Pacemaker - Immunizations Hx Diphtheria, Pertussis, Tetanus Vaccination: No Hx Pneumococcal Vaccination: 04/07/09 Review of Systems - Review of Systems Notes: REVIEW OF SYSTEMS: CONSTITUTIONAL: -fevers, -chills EENT: -eye pain, -difficulty swallowing, -nasal congestion CARDIOVASCULAR: -chest pain, -syncope. RESPIRATORY: -cough, +SOB GASTROINTESTINAL: -abdominal pain, -nausea, -vomiting, -diarrhea GENITOURINARY: -dysuria, -hematuria MUSCULOSKELETAL: -back pain, -neck pain SKIN: -rash or skin lesions. HEMATOLOGIC: -easy bruising or bleeding. LYMPHATIC: -swollen, enlarged glands. NEUROLOGICAL: -altered mental status or loss of consciousness, -headache, - neurologic symptoms PSYCHIATRIC: -anxiety, -depression. ALL OTHER SYSTEMS REVIEWED AND NEGATIVE. Physical Exam - Vital signs Vitals: Pulse Ox 92 07/30/17 21:13 - Notes Notes: PHYSICAL EXAMINATION: GENERAL: Well-appearing, well-nourished and in no acute distress. HEAD: Atraumatic, normocephalic. EYES: Pupils equal round and reactive to light, extraocular movements intact, sclera anicteric, conjunctiva are normal. ENT: nares patent, oropharynx clear without exudates. Moist mucous membranes. NECK: Normal range of motion, supple without lymphadenopathy LUNGS: Speaking in full sentences, mild tachypnea, rales in bilateral bases. HEART: Regular rate and rhythm without murmurs ABDOMEN: Soft, nontender, normoactive bowel sounds. No guarding, no rebound. No masses appreciated. EXTREMITIES: 3+ pitting edema in bilateral legs NEUROLOGICAL: Cranial nerves grossly intact. Normal speech, normal gait. Normal sensory and motor exams. PSYCH: Normal mood, normal affect. SKIN: Warm, Dry, normal turgor, no rashes or lesions noted. Course - Re-evaluation Re-evalutation: Patient mildly tachypneic on arrival, but he was never hypoxic. His initial chest x-ray showed some pulmonary vascular congestion, but no overt CHF. CTA ordered due to his history of PEs, but this showed no evidence of a PE. It only showed a small pleural effusion. After 2 mg IV Bumex, he urinated a large amount and is feeling much better. He was ambulated without any hypoxia or increased work of breathing. Instructed patient to follow-up with his primary care physician tomorrow for recheck of his symptoms and possible adjustments of his medications. - Vital Signs Vital signs: Temp Pulse Resp BP Pulse Ox 23 H 183/99 H 95 07/30/17 21:16 07/30/17 21:16 07/30/17 21:16 - Laboratory Result Diagrams: 07/30/17 21:24 07/30/17 21:24 Laboratory results interpreted by me: 07/30/17 07/30/17 07/30/17 21:24 21:24 21:24 Hgb 13.3 L RDW 16.4 H APTT 36.4 H VBG HCO3 Sodium 146.4 H Carbon Dioxide 31 H Creatinine 1.26 H Est GFR (Non-Af Amer) 58 L 07/30/17 21:26 Hgb RDW APTT VBG HCO3 32.3 H Sodium Carbon Dioxide Creatinine Est GFR (Non-Af Amer) - Diagnostic Test Radiology reviewed: Image reviewed, Reports reviewed Radiology results interpreted by me: CXR: Cardiomegaly with pulmonary vascular congestion but no hill CHF. CTA Chest: - EKG Interpretation by Me EKG shows normal: Sinus rhythm, [place], Intervals, QRS Complexes, ST-T Waves Rate: Normal Discharge - Discharge Clinical Impression: Shortness of breath, Pulmonary vascular congestion Condition: Stable Disposition: HOME, SELF-CARE Additional Instructions: Take your blood pressure medications and nighttime Bumex when you get home. Follow-up with your primary care physician tomorrow for a recheck of your symptoms and to see if you need any medication adjustments. CAT scan did not show any evidence of a pulmonary embolism or pneumonia. Continue your Eliquis. SHORTNESS OF BREATH OR DYSPNEA: You were evaluated for shortness of breath, or dyspnea. Dyspnea has many causes, and some are more serious than others. Sometimes it's impossible to diagnose the cause of dyspnea with the tests that are available on an emergency basis. Based on our evaluation today, you do not need hospitalization now. We found no evidence of pneumonia, collapsed lung, blood clots in the lung, tumors , or heart failure. Causes of non-specific dyspnea can include asthma or bronchospasm, hyperventilation, emotional distress, heart disease, emphysema, fibrosis of the lung, and stiffness of the chest wall. In healthy individuals with a single episode, it's sometimes reasonable to do nothing but wait to see if the problem occurs again. Additional tests used to evaluate dyspnea can include cardiac stress testing, echocardiography, pulmonary function testing, CAT scan of the chest, bronchoscopy or pulmonary biopsy. Return if shortness of breath persists or worsens, or if you develop chest pain, fever, cough, confusion, or fainting. FOLLOW-UP CARE: If you have been referred to a physician for follow-up care, call the physician s office for an appointment as you were instructed or within the next two days. If you experience worsening or a significant change in your symptoms, notify the physician immediately or return to the Emergency Department at any time for re-evaluation. Congestive Heart Failure You have been diagnosed as having congestive heart failure (CHF). CHF occurs when the heart is unable to pump blood efficiently, leading to fluid buildup in the veins and lungs. Typical symptoms are swelling of the legs, shortness of breath on minor exertion, and fatigue. CHF is treated with salt restriction, medicine to eliminate excess water and salt from the body, and medication to help the heart contract more efficiently. Eliminate added salt and salty foods in your diet. Decrease your activity until excess fluid has been eliminated. It will also be helpful to raise the head of your bed so you can sleep more easily. Keep a daily record of your weight. This will help your physician monitor your progress. Once extra water has been eliminated, light aerobic exercise daily -- such as walking -- will be helpful (unless your physician has told you to restrict activity for other reasons). Be sure to follow up with the physician as instructed. Contact the doctor at once if you worsen in any way. Forms: Elevated Blood Pressure Referrals: YOSI HIGHTOWER MD [Primary Care Provider] - Follow up as needed
[2017-07-30 21:43] LABS: INTERNATIONAL RATION (INR) 1.02; PARTIAL THROMBOPLASTIN TIME 36.4 SEC (23.5-35.8); PROTHROMBIN TIME 13.9 SEC (11.4-15.4)
--- NOTE | 2017-07-30 21:45 | RADIOLOGY REPORT (SQ) ---
EXAM DESCRIPTION: CHEST SINGLE VIEW COMPLETED DATE/TIME: 07/30/2017 9:29 pm REASON FOR STUDY: SOB COMPARISON: 06/17/2017 EXAM PARAMETERS: NUMBER OF VIEWS: One view. TECHNIQUE: Single frontal radiographic view of the chest acquired. RADIATION DOSE: NA LIMITATIONS: None. FINDINGS: LUNGS AND PLEURA: No opacities, masses or pneumothorax. No pleural effusion. MEDIASTINUM AND HILAR STRUCTURES: No masses. Contour normal. HEART AND VASCULAR STRUCTURES: Cardiomegaly with mild pulmonary vascular congestion but no hill fail ure. BONES: No acute findings. HARDWARE: None in the chest. OTHER: No other significant finding. IMPRESSION: Cardiomegaly with pulmonary vascular congestion but no hill CHF. TECHNICAL DOCUMENTATION: JOB ID: [id number] [employer]- All Rights Reserved Reading location - IP/workstation name: [email or web address]
[2017-07-30 21:47] LABS: ABSOLUTE BASOPHILS # (AUTO) 0.1 10^3/uL (0.0-0.2); ABSOLUTE EOSINOPHILS # (AUTO) 0.3 10^3/uL (0.0-0.6); ABSOLUTE LYMPHOCYTES (AUTO) 1.6 10^3/uL (0.5-4.7); ABSOLUTE MONOCYTES (AUTO) 0.6 10^3/uL (0.1-1.4); ABSOLUTE NEUT (AUTO) 6.8 10^3/uL (1.7-8.2); BASOPHILS % (AUTO) 0.7 % (0-2); EOSINOPHILS % (AUTO) 3.2 % (0-6); HEMATOCRIT 40.5 % (37.9-51.0); HEMOGLOBIN 13.3 g/dL (13.5-17.0); MEAN CORPUSCULAR HEMOGLOBIN 27.4 pg (27.0-33.4); MEAN CORPUSCULAR HGB CONC 32.9 g/dL (32.0-36.0); MEAN CORPUSCULAR VOLUME 83 fl (80-97); MONOCYTES % (AUTO) 6.2 % (3-13); PLATELET COUNT 242 10^3/uL (150-450); RED BLOOD COUNT 4.86 10^6/uL (4.35-5.55); RED CELL DISTRIBUTION WIDTH 16.4 % (11.5-14.0); SEGMENTED NEUTROPHILS % (AUTO) 72.9 % (42-78); TOTAL CELLS COUNTED % (AUTO) 100 %; WHITE BLOOD COUNT 9.3 10^3/uL (4.0-10.5)
[2017-07-30 21:49] LABS: VENOUS BLOOD BASE EXCESS 5.1 mmol/L; VENOUS BLOOD HCO3 32.3 mmol/L (20-32); VENOUS BLOOD PCO2 59.2 mmHg (35-63); VENOUS BLOOD PH 7.36 (7.30-7.42)
[2017-07-30 21:55] LABS: ALANINE AMINOTRANSFERASE 32 U/L (21-72); ALBUMIN 4.3 g/dL (3.5-5.0); ALKALINE PHOSPHATASE 70 U/L (38-126); ANION GAP 13 (5-19); ASPARTATE AMINO TRANSFERASE 19 U/L (17-59); BILIRUBIN,DIRECT 0.3 mg/dL (0.0-0.4); BILIRUBIN,TOTAL 0.3 mg/dL (0.2-1.3); BLOOD UREA NITROGEN 15 mg/dL (7-20); CALCIUM 9.8 mg/dL (8.4-10.2); CARBON DIOXIDE 31 mmol/L (22-30); CHLORIDE 102 mmol/L (98-107); CREATINE KINASE 71 U/L (55-170); GLUCOSE 108 mg/dL (75-110); SODIUM 146.4 mmol/L (137-145); TOTAL PROTEIN 7.8 g/dL (6.3-8.2)
[2017-07-30] MEDS ORDERED: BUMETANIDE INJ/PF 1 MG/4 ML SDV IV ONE (22:00)
[2017-07-30 22:07] LABS: NT PRO BNP 406 pg/mL (5-900); TROPONIN I < 0.012 ng/mL
--- NOTE | 2017-07-30 22:46 | RADIOLOGY REPORT (SQ) ---
EXAM DESCRIPTION: CTA CHEST COMPLETED DATE/TIME: 07/30/2017 10:30 pm REASON FOR STUDY: Hx PE, worsening SOB COMPARISON: Chest x-ray 07/30/2017 TECHNIQUE: CT scan of the chest performed using helical scanning technique with dynamic intravenous contrast injection. Images reviewed with lung, soft tissue and bone windows. Reconstructed coronal and sagittal MPR images reviewed. Additional 3 dimensional post-processing performed to develop Maximal Intensity Projection images ([place] P). All images stored on PACS. All CT scanners at this facility use dose modulation, iterative reconstruction, and/or weight based d osing when appropriate to reduce radiation dose to as low as reasonably achievable (ALARA). [facility]: Dose Right [facility]: CareDose [facility]: Dose Right [facility]: Teradose 4D [facility]: Pro V&V CONTRAST TYPE AND DOSE: contrast/concentration: Isovue 370.00 mg/ml; Total Contrast Delivered: 100.0 ml; Total Saline Delivered: 40.0 ml Contrast bolus optimized for the pulmonary arteries. Not diagnostic for the aorta. RENAL FUNCTION: Creatinine 1.26 RADIATION DOSE: CT Rad equipment meets quality standard of care and radiation dose reduction techniq ues were employed. CTDIvol: 55.8 mGy. DLP: 1844 mGy-cm. . LIMITATIONS: None. FINDINGS: LUNGS AND PLEURA: Small right pleural effusion AORTA AND GREAT VESSELS: No aneurysm. Contrast bolus not optimized for the aorta. HEART: Cardiomegaly. No pericardial effusion. Moderate coronary artery calcifications. PULMONARY ARTERIES: No emboli visualized in the main pulmonary arteries or the segmental branches. HILAR AND MEDIASTINAL STRUCTURES: No identified masses or abnormal nodes. HARDWARE: None in the chest. UPPER ABDOMEN: Low-density 18 mm right adrenal nodule. THYROID AND OTHER SOFT TISSUES: No masses. No adenopathy. BONES: No acute or significant finding. 3D MIPS: Confirm above findings. OTHER: No other significant finding. IMPRESSION: 1. There is no evidence of pulmonary embolus. 2. Small right pleural effusion. 3. Small right adrenal nodule. This is stable compared to the CT renal stone dated 06/19/2017 COMMENT: Quality ID # [id number]: Final reports with documentation of one or more dose reduction techniques (e.g., Automated exposure control, adjustment of the mA and/or kV according to patient size, use of iterative reconstruction technique) TECHNICAL DOCUMENTATION: JOB ID: [id number]- All Rights Reserved Reading location - IP/workstation name: [email or web address]
[2017-07-30 23:23] VITALS: BP 156/88
--- NOTE | 2017-07-31 07:58 | EKG REPORT ---
SEVERITY:- BORDERLINE ECG - SINUS RHYTHM PROBABLE LEFT ATRIAL ABNORMALITY : Confirmed by: Richard Go MD 31-Jul-2017 07:58:04
== END 2017-07-30 23:30 | disposition home or self-care (01) ==
LOC: ER 21:06
DX: J44.9 Chronic obstructive pulmonary disease, unspecified (principal); J90 Pleural effusion, not elsewhere classified; I51.7 Cardiomegaly; R60.0 Localized edema; R06.02 Shortness of breath; R07.1 Chest pain on breathing; I25.10 Atherosclerotic heart disease of native coronary artery without angina pectoris; I10 Essential (primary) hypertension; E11.9 Type 2 diabetes mellitus without complications; Z86.711 Personal history of pulmonary embolism; Z79.01 Long term (current) use of anticoagulants; Z79.899 Other long term (current) drug therapy; Z87.01 Personal history of pneumonia (recurrent); Z88.2 Allergy status to sulfonamides; Z88.8 Allergy status to other drugs, medicaments and biological substances; Z88.5 Allergy status to narcotic agent; Z88.0 Allergy status to penicillin; Z87.891 Personal history of nicotine dependence; R09.89 Other specified symptoms and signs involving the circulatory and respiratory systems
CPT/HCPCS: 93005; 99285; 96374; 36415; 87040; 82550; 83605; 85025; 85610; 85730; 80053; 84484; 82803; 83880; 71045; 71275; 93010; A9270; J3490

== ENCOUNTER 2017-07-31 15:37 | Emergency (ER) | payer MEDICARE, MEDICAID ==
[2017-07-31 16:22] LABS: ABSOLUTE BASOPHILS # (AUTO) 0.1 10^3/uL (0.0-0.2); ABSOLUTE EOSINOPHILS # (AUTO) 0.3 10^3/uL (0.0-0.6); ABSOLUTE LYMPHOCYTES (AUTO) 1.1 10^3/uL (0.5-4.7); ABSOLUTE MONOCYTES (AUTO) 0.6 10^3/uL (0.1-1.4); ABSOLUTE NEUT (AUTO) 6.2 10^3/uL (1.7-8.2); EOSINOPHILS % (AUTO) 3.2 % (0-6); HEMATOCRIT 40.1 % (37.9-51.0); HEMOGLOBIN 13.5 g/dL (13.5-17.0); LYMPHOCYTES % (AUTO) 13.4 % (13-45); MEAN CORPUSCULAR HEMOGLOBIN 27.6 pg (27.0-33.4); MEAN CORPUSCULAR HGB CONC 33.6 g/dL (32.0-36.0); MEAN CORPUSCULAR VOLUME 82 fl (80-97); MONOCYTES % (AUTO) 7.7 % (3-13); PLATELET COUNT 241 10^3/uL (150-450); RED BLOOD COUNT 4.87 10^6/uL (4.35-5.55); RED CELL DISTRIBUTION WIDTH 16.4 % (11.5-14.0); SEGMENTED NEUTROPHILS % (AUTO) 74.7 % (42-78); TOTAL CELLS COUNTED % (AUTO) 100 %; WHITE BLOOD COUNT 8.3 10^3/uL (4.0-10.5)
--- NOTE | 2017-07-31 16:45 | ER Document Report ---
ED General - General Chief Complaint: Shortness Of Breath Stated Complaint: SHORTNESS OF BREATH Time Seen by Provider: 07/31/17 15:44 Mode of Arrival: Medic Information source: Patient, [facility] Records Notes: 61-year-old male history of CHF COPD who is not on oxygen at home presents with complaints of sensation that his nasal passages were swelling his tongue was swelling that his throat was swelling that his lungs were swelling just prior to arrival. Patient was seen here yesterday CTA was performed small pleural effusion was noted, patient states he felt fine but then the swelling happened all of a sudden today which has since now resolved. Patient currently is asymptomatic satting 96% on room air while laying flat TRAVEL OUTSIDE OF THE [place] IN LAST 30 DAYS: No - HPI Onset: Just prior to arrival Onset/Duration: Sudden Quality of pain: No pain Severity: Mild Pain Level: Denies Context: Patient notes he began hyperventilating when the symptoms occurred Associated symptoms: Shortness of breath Exacerbated by: Denies Relieved by: Denies Similar symptoms previously: Yes Recently seen / treated by doctor: Yes - Related Data Allergies/Adverse Reactions: amlodipine Allergy (Verified 02/16/17 00:57) benazepril [Benazepril] Allergy (Verified 02/16/17 00:57) clonidine Allergy (Verified 02/16/17 00:57) codeine [Codeine] Allergy (Verified 02/16/17 00:57) haloperidol [From Haldol] Allergy (Verified 02/16/17 00:57) minoxidil Allergy (Verified 02/16/17 00:57) nalbuphine Allergy (Verified 02/16/17 00:57) oxycodone Allergy (Verified 02/16/17 00:57) Penicillins Allergy (Verified 02/16/17 00:57) perphenazine Allergy (Verified 02/16/17 00:57) propoxyphene Allergy (Verified 02/16/17 00:57) Sulfa (Sulfonamide Antibiotics) Allergy (Verified 02/16/17 00:57) topiramate Allergy (Verified 02/16/17 00:57) trifluoperazine [From Stelazine] Allergy (Verified 02/16/17 00:57) Past Medical History - Social History Smoking Status: Former Smoker Cigarette use (# per day): No Chew tobacco use (# tins/day): No Smoking Education Provided: No Frequency of alcohol use: None Drug Abuse: None Family History: Reviewed & Not Pertinent Patient has suicidal ideation: No Patient has homicidal ideation: No - Past Medical History Cardiac Medical History: Reports: Hx Congestive Heart Failure, Hx Coronary Artery Disease, Hx DVT, Hx Hypercholesterolemia, Hx Hypertension, Hx Pulmonary Embolism Denies: Hx Atrial Fibrillation, Hx Heart Attack, Hx Peripheral Vascular Disease, Hx Heart Murmur Pulmonary Medical History: Reports: Hx Asthma, Hx COPD, Hx Pneumonia, Hx Sleep Apnea Denies: Hx Bronchitis, Hx Respiratory Failure, Hx Tuberculosis Neurological Medical History: Denies: Hx Cerebrovascular Accident, Hx Seizures Endocrine Medical History: Reports: Hx Diabetes Mellitus Type 2. Denies: Hx Graves' Disease, Hx Hyperthyroidism, Hx Hypothyroidism Renal/ Medical History: Denies: Hx Peritoneal Dialysis Malignancy Medical History: Denies Hx Leukemia, Denies Hx Lung Cancer GI Medical History: Reports: Hx Hiatal Hernia. Denies: Hx Crohn's Disease, Hx Gastroesophageal Reflux Disease, Hx Irritable Bowel, Hx Liver Failure, Hx Pancreatitis, Hx Ulcer Musculoskeltal Medical History: Denies Hx Arthritis, Denies Hx Fibromyalgia, Denies Hx Muscular Dystrophy Psychiatric Medical History: Reports: Hx Anxiety, Hx Depression, Hx Post Traumatic Stress Disorder, Hx Schizophrenia Denies: Hx Bipolar Disorder Traumatic Medical History: Reports: Hx Fractures Infectious Medical History: Denies: Hx HIV Past Surgical History: Reports: Hx Abdominal Surgery - hernia repair, Hx Cardiac Catheterization - 30% blockage, Hx Genitourinary Surgery - VASECTOMY, Hx Herniorrhaphy, Hx Oral Surgery - TOOTH EXTRACTION, Hx Orthopedic Surgery - PLATE SCREWS DISC AND BONE GRAFT: NECK, Hx Tonsillectomy. Denies: Hx Appendectomy, Hx Bowel Surgery, Hx Cholecystectomy, Hx Colostomy, Hx Coronary Artery Bypass Graft, Hx Gastric Bypass Surgery, Hx Pacemaker - Immunizations Hx Diphtheria, Pertussis, Tetanus Vaccination: No Hx Pneumococcal Vaccination: 04/07/09 Review of Systems - Review of Systems Notes: REVIEW OF SYSTEMS: CONSTITUTIONAL : Denies fever, chills, or sweats. Denies recent illness. EENT: Denies eye, ear, throat, or mouth pain or symptoms. Denies nasal or sinus congestion or discharge. Denies throat, tongue, or mouth swelling or difficulty swallowing. CARDIOVASCULAR: Denies chest pain. Denies palpitations or racing or irregular heart beat. Denies ankle edema. RESPIRATORY: Admits to shortness of breath difficulty breathing. GASTROINTESTINAL: Denies abdominal pain or distention. Denies nausea, vomiting , or diarrhea. Denies blood in vomitus, stools, or per rectum. Denies black, tarry stools. Denies constipation. GENITOURINARY: Denies difficulty urinating, painful urination, burning, frequency, blood in urine, or discharge. MUSCULOSKELETAL: Denies back or neck pain or stiffness. Denies joint pain or swelling. SKIN: Denies rash, lesions or sores. HEMATOLOGIC : Denies easy bruising or bleeding. LYMPHATIC: Denies swollen, enlarged glands. NEUROLOGICAL: Denies confusion or altered mental status. Denies passing out or loss of consciousness. Denies dizziness or lightheadedness. Denies headache. Denies weakness or paralysis or loss of use of either side. Denies problems with gait or speech. Denies sensory loss, numbness, or tingling. Denies seizures. PSYCHIATRIC: Denies anxiety or stress. Denies depression, suicidal ideation, or homicidal ideation. ALL OTHER SYSTEMS REVIEWED AND NEGATIVE. Dictation was performed using [employer] voice recognition software PHYSICAL EXAMINATION: GENERAL: Morbidly obese male in no acute distress resting comfortably satting well HEAD: Atraumatic, normocephalic. EYES: Pupils equal round and reactive to light, extraocular movements intact, sclera anicteric, conjunctiva are normal. ENT: Nares patent, oropharynx clear without exudates. Moist mucous membranes. NECK: Normal range of motion, supple without lymphadenopathy LUNGS: Breath sounds clear to auscultation bilaterally and equal. No wheezes rales or rhonchi. HEART: Regular rate and rhythm without murmurs ABDOMEN: Soft, nontender, nondistended abdomen. No guarding, no rebound. No masses appreciated. Musculoskeletal: Normal range of motion, no pitting or edema. No cyanosis. NEUROLOGICAL: Cranial nerves grossly intact. Normal speech, normal gait. Normal sensory, motor exams PSYCH: Normal mood, normal affect. SKIN: Warm, Dry, normal turgor, no rashes or lesions noted. Physical Exam - Vital signs Vitals: BP 157/83 H 07/31/17 15:47 Course - Re-evaluation Re-evalutation: 07/31/17 16:45 Patient is absolutely no distress, his symptoms are more consistent with a panic attack, I do not believe he has swelling of his lungs or his airway at this time, 08/01/17 08:46 Pt lab work imaging noted no changes since yesterday, he had a cta chest at that time , he was satting 95% while on the visit here , will dc home to ofllow up with his own pcp. After performing a Medical Screening Examination, I estimate there is LOW risk for ACUTE CORONARY SYNDROME, PULMONARY EMBOLI, RESPIRATORY FAILURE, SEPSIS OR MENINGITIS, thus I consider the discharge disposition reasonable. I have reevaluated this patient multiple times and no significant life threatening changes are noted. The patient and I have discussed the diagnosis and risks, and we agree with discharging home with close follow-up. We also discussed returning to the Emergency Department immediately if new or worsening symptoms occur. We have discussed the symptoms which are most concerning (e.g., changing or worsening pain, trouble swallowing or breathing, neck stiffness, fever) that necessitate immediate return. - Vital Signs Vital signs: Temp Pulse Resp BP Pulse Ox 97.8 F 71 20 165/84 H 93 07/31/17 18:11 07/31/17 18:11 07/31/17 18:11 07/31/17 18:11 07/31/17 18:11 - Laboratory Result Diagrams: 07/31/17 16:06 07/31/17 16:06 Laboratory results interpreted by me: 07/31/17 07/31/17 16:06 16:06 RDW 16.4 H Carbon Dioxide 31 H Glucose 158 H - Diagnostic Test Radiology reviewed: Image reviewed - chest xray 2 view noted no new changes, Reports reviewed Discharge - Discharge Clinical Impression: Dyspnea Qualifiers: Dyspnea type: unspecified Qualified Code(s): R06.00 - Dyspnea, unspecified Diastolic CHF Qualifiers: Heart failure chronicity: chronic Qualified Code(s): I50.32 - Chronic diastolic (congestive) heart failure Condition: Stable Disposition: HOME, SELF-CARE Instructions: Dyspnea, Nonspecific ([facility]) Referrals: YOSI HIGHTOWER MD [Primary Care Provider] - Follow up tomorrow
--- NOTE | 2017-07-31 16:47 | RADIOLOGY REPORT (SQ) ---
EXAM DESCRIPTION: CHEST SINGLE VIEW COMPLETED DATE/TIME: 07/31/2017 4:39 pm REASON FOR STUDY: dyspnea COMPARISON: 07/30/2017. NUMBER OF VIEWS: One view. TECHNIQUE: Single frontal radiographic view of the chest acquired. LIMITATIONS: None. FINDINGS: LUNGS AND PLEURA: No opacities, masses or pneumothorax. No pleural effusion. MEDIASTINUM AND HILAR STRUCTURES: No masses or contour abnormality. HEART AND VASCULATURE: Cardiac enlargement. Mild vascular congestion. BONES: No acute findings. HARDWARE: Hardware in the cervical spine. OTHER: No other significant finding. IMPRESSION: CARDIAC ENLARGEMENT. MILD VASCULAR CONGESTION. NO CHANGE FROM THE PRIOR STUDY. TECHNICAL DOCUMENTATION: JOB ID: [id number] [employer]- All Rights Reserved Reading location - IP/workstation name: [email or web address]
[2017-07-31 16:56] LABS: ALANINE AMINOTRANSFERASE 23 U/L (21-72); ALBUMIN 4.2 g/dL (3.5-5.0); ALKALINE PHOSPHATASE 74 U/L (38-126); ANION GAP 14 (5-19); ASPARTATE AMINO TRANSFERASE 19 U/L (17-59); BILIRUBIN,DIRECT 0.4 mg/dL (0.0-0.4); BILIRUBIN,TOTAL 0.5 mg/dL (0.2-1.3); BLOOD UREA NITROGEN 16 mg/dL (7-20); CALCIUM 9.7 mg/dL (8.4-10.2); CARBON DIOXIDE 31 mmol/L (22-30); CHLORIDE 100 mmol/L (98-107); CREATINE KINASE 69 U/L (55-170); GLUCOSE 158 mg/dL (75-110); POTASSIUM 3.9 mmol/L (3.6-5.0); TOTAL PROTEIN 7.4 g/dL (6.3-8.2)
[2017-07-31 17:07] LABS: NT PRO BNP 335 pg/mL (5-900)
[2017-07-31 17:13] LABS: TROPONIN I < 0.012 ng/mL
[2017-07-31 17:26] LABS: APPEARANCE,URINE CLEAR; BILIRUBIN,URINE NEGATIVE (NEGATIVE); COLOR,URINE YELLOW; GLUCOSE, URINE NEGATIVE (NEGATIVE); KETONES,URINE NEGATIVE (NEGATIVE); LEUKOCYTE ESTERASE,URINE NEGATIVE (NEGATIVE); NITRITE,URINE NEGATIVE (NEGATIVE); PROTEIN,URINE NEGATIVE (NEGATIVE); URINE SPECIFIC GRAVITY 1.009; UROBILINOGEN,URINE NEGATIVE mg/dL (<2.0)
[2017-07-31 18:12] VITALS: BP 165/84
--- NOTE | 2017-07-31 18:56 | EKG REPORT ---
SEVERITY:- NORMAL ECG - SINUS RHYTHM : Confirmed by: Richard Go MD 31-Jul-2017 18:55:50
== END 2017-07-31 18:13 | disposition home or self-care (01) ==
LOC: ER 15:37
DX: I50.32 Chronic diastolic (congestive) heart failure (principal); R06.00 Dyspnea, unspecified; J44.9 Chronic obstructive pulmonary disease, unspecified; R22.0 Localized swelling, mass and lump, head; Z87.891 Personal history of nicotine dependence; I25.10 Atherosclerotic heart disease of native coronary artery without angina pectoris; I10 Essential (primary) hypertension; E11.9 Type 2 diabetes mellitus without complications
CPT/HCPCS: 36415; 71045; 80053; 81001; 82550; 82553; 83880; 84484; 85025; 93005; 93010; 99285

== ENCOUNTER → 2017-08-07 | Outpatient (CLI) | payer MEDICARE, MEDICAID ==
--- NOTE | 2017-08-07 10:47 | RADIOLOGY REPORT (SQ) ---
EXAM DESCRIPTION: CT ABD/PELVIS COMBO COMPLETED DATE/TIME: 08/07/2017 10:01 am REASON FOR STUDY: HEMATURIA (R31.29) R31.29 OTHER MICROSCOPIC HEMATURIA COMPARISON: CT angio chest 11/29/2015, 08/02/2017 CT abdomen pelvis 06/19/2017 TECHNIQUE: CT scan of the abdomen and pelvis performed with and without intravenous contrast, and wi thout oral contrast. Contrasted imaging performed helical scanning technique and dynamic intravenous contrast injection. Images reviewed with lung, soft tissue, and bone windows. Reconstructed coronal a nd sagittal MPR images reviewed. Delayed images for evaluation of the urinary system also acquired. A ll images stored on PACS. All CT scanners at this facility use dose modulation, iterative reconstruction, and/or weight based d osing when appropriate to reduce radiation dose to as low as reasonably achievable (ALARA). [facility]: Dose Right [facility]: CareDose [facility]: Dose Right [facility]: Teradose 4D [facility]: [employer] CONTRAST TYPE AND DOSE: contrast/concentration: Isovue 370.00 mg/ml; Total Contrast Delivered: 100.0 ml; Total Saline Delivered: 72.0 ml RENAL FUNCTION: Creatinine 0.9 RADIATION DOSE: CT Rad equipment meets quality standard of care and radiation dose reduction techniq ues were employed. CTDIvol: 27.0 - 31.6 mGy. DLP: 5064 mGy-cm. . LIMITATIONS: Large patient FINDINGS: NON-CONTRASTED IMAGIN mm right lower pole intrarenal stone, lower pole. Calculus rissa ures 600 Hounsfield units in density. There are calcified gallstones without gallbladder wall thickening or pericholecystic fluid. POST-CONTRASTED IMAGING: LOWER CHEST: Small hiatal hernia. Moderate cardiomegaly. LIVER: Normal size. No masses. No dilated ducts. SPLEEN: Normal size. No focal lesions. PANCREAS: No masses. No significant calcifications. No adjacent inflammation or peripancreatic fluid collections. Pancreatic duct not dilated. GALLBLADDER: Calcified gallstones. No gallbladder wall thickening or pericholecystic fluid. ADRENAL GLANDS: 3.5 x 2.5 cm benign fatty density right adrenal nodule similar compared to previous s tudies. Left adrenal gland unremarkable RIGHT KIDNEY AND URETER: No solid masses. 8 mm right lower pole intrarenal nonobstructive stone, 60 0 Hounsfield units in density No hydronephrosis or hydroureter. LEFT KIDNEY AND URETER: No solid masses. No significant calcifications. No hydronephrosis or hydr oureter. AORTA AND VESSELS: No aneurysm. No dissection. Renal arteries, SMA, celiac without stenosis. RETROPERITONEUM: No retroperitoneal adenopathy, hemorrhage or masses. BOWEL AND PERITONEAL CAVITY: No masses or inflammatory changes. No free fluid or peritoneal masses. APPENDIX: Normal. PELVIS: No mass. No free fluid. Normal bladder. ABDOMINAL WALL: No masses. No hernias. BONES: No significant or acute findings. OTHER: No other significant finding. IMPRESSION: 8 mm right lower pole intrarenal nonobstructive kidney stone. Gallstones without gallbladder wall thickening or pericholecystic fluid. Benign 3.5 cm fatty right adrenal tumor TECHNICAL DOCUMENTATION: JOB ID: [id number] Quality ID # [id number]: Final reports with documentation of one or more dose reduction techniques (e.g., Au tomated exposure control, adjustment of the mA and/or kV according to patient size, use of iterative reconstruction technique) 2010 [employer]- All Rights Reserved Reading location - IP/workstation name: [email or web address]
== END ==
LOC: RAD 08:42
PROVIDERS: ATTEND Urology
DX: N20.0 Calculus of kidney (principal); K80.80 Other cholelithiasis without obstruction
CPT/HCPCS: 74178; 82565

== ENCOUNTER → 2017-08-07 | Outpatient (CLI) | payer MEDICARE, MEDICAID ==
[2017-08-07 13:26] LABS: ALBUMIN 4.5 g/dL (3.5-5.0); ANION GAP 14 (5-19); ASPARTATE AMINO TRANSFERASE 24 U/L (17-59); BLOOD UREA NITROGEN 14 mg/dL (7-20); CARBON DIOXIDE 30 mmol/L (22-30); CHLORIDE 101 mmol/L (98-107); GLUCOSE 175 mg/dL (75-110); SODIUM 145.2 mmol/L (137-145)
[2017-08-07 13:27] LABS: ALANINE AMINOTRANSFERASE 35 U/L (21-72); ALKALINE PHOSPHATASE 80 U/L (38-126); BILIRUBIN,DIRECT 0.4 mg/dL (0.0-0.4); BILIRUBIN,TOTAL 0.7 mg/dL (0.2-1.3); TOTAL PROTEIN 8.3 g/dL (6.3-8.2)
[2017-08-08 11:40] LABS: CREATININE URINE 41.9 mg/dL (Not Estab.)
== END ==
LOC: OD 12:10
PROVIDERS: ATTEND Internal Medicine Nephrology
DX: E11.9 Type 2 diabetes mellitus without complications (principal); E87.6 Hypokalemia; N28.9 Disorder of kidney and ureter, unspecified; E78.2 Mixed hyperlipidemia
CPT/HCPCS: 36415; 80053; 82043; 82570; 83036

== ENCOUNTER 2017-08-30 10:21 | Emergency (ER) | payer MEDICARE, MEDICAID ==
--- NOTE | 2017-08-30 10:48 | ER Document Report ---
ED Medical Screen (RME) - General Chief Complaint: Leg Swelling Stated Complaint: SWELLING OF RIGHT LEG Time Seen by Provider: 08/30/17 10:42 Notes: RAPID MEDICAL EVALUATION DISCLOSURE I have seen this patient as part of a Rapid Medical Evaluation and, if applicable, placed any initially appropriate orders. The patient will be seen and fully evaluated, including a full history and physical exam, by a provider ( in Main ED or Fast Track) when a room becomes available. 61-year-old male here with complaints of right leg swelling and redness that has been ongoing for the past 3 months but progressively worsening. He reports fevers of 101 Fahrenheit. He denies any drainage. He reports that his outpatient white blood cell count was 19,000. He denies being on antibiotics for this. EXAM Mild right leg erythema TRAVEL OUTSIDE OF THE [place] IN LAST 30 DAYS: No - Related Data Allergies/Adverse Reactions: benztropine [From Cogentin] Allergy (Verified 08/30/17 10:42) codeine [Codeine] Allergy (Verified 08/30/17 10:42) Penicillins Allergy (Verified 08/30/17 10:42) Past Medical History - Past Medical History Cardiac Medical History: Reports: Hx Congestive Heart Failure, Hx Coronary Artery Disease, Hx DVT, Hx Hypercholesterolemia, Hx Hypertension, Hx Pulmonary Embolism Denies: Hx Atrial Fibrillation, Hx Heart Attack, Hx Peripheral Vascular Disease, Hx Heart Murmur Pulmonary Medical History: Reports: Hx Asthma, Hx COPD, Hx Pneumonia, Hx Sleep Apnea Denies: Hx Bronchitis, Hx Respiratory Failure, Hx Tuberculosis Neurological Medical History: Denies: Hx Cerebrovascular Accident, Hx Seizures Endocrine Medical History: Reports: Hx Diabetes Mellitus Type 2. Denies: Hx Graves' Disease, Hx Hyperthyroidism, Hx Hypothyroidism Renal/ Medical History: Denies: Hx Peritoneal Dialysis Malignancy Medical History: Denies Hx Leukemia, Denies Hx Lung Cancer GI Medical History: Reports: Hx Hiatal Hernia. Denies: Hx Crohn's Disease, Hx Gastroesophageal Reflux Disease, Hx Irritable Bowel, Hx Liver Failure, Hx Pancreatitis, Hx Ulcer Musculoskeltal Medical History: Denies Hx Arthritis, Denies Hx Fibromyalgia, Denies Hx Muscular Dystrophy Psychiatric Medical History: Reports: Hx Anxiety, Hx Depression, Hx Post Traumatic Stress Disorder, Hx Schizophrenia Denies: Hx Bipolar Disorder Traumatic Medical History: Reports: Hx Fractures Infectious Medical History: Denies: Hx HIV Past Surgical History: Reports: Hx Abdominal Surgery - hernia repair, Hx Cardiac Catheterization - 30% blockage, Hx Genitourinary Surgery - VASECTOMY, Hx Herniorrhaphy, Hx Oral Surgery - TOOTH EXTRACTION, Hx Orthopedic Surgery - PLATE SCREWS DISC AND BONE GRAFT: NECK, Hx Tonsillectomy. Denies: Hx Appendectomy, Hx Bowel Surgery, Hx Cholecystectomy, Hx Colostomy, Hx Coronary Artery Bypass Graft, Hx Gastric Bypass Surgery, Hx Pacemaker - Immunizations Hx Diphtheria, Pertussis, Tetanus Vaccination: No Physical Exam - Vital signs Vitals: Temp Pulse Resp BP Pulse Ox 98.4 F 86 22 H 159/78 H 95 08/30/17 10:27 08/30/17 10:27 08/30/17 10:27 08/30/17 10:27 08/30/17 10:27 Course - Vital Signs Vital signs: Temp Pulse Resp BP Pulse Ox 98.4 F 86 22 H 159/78 H 95 08/30/17 10:27 08/30/17 10:27 08/30/17 10:27 08/30/17 10:27 08/30/17 10:27
--- NOTE | 2017-08-30 11:20 | ER Document Report ---
ED Extremity Problem, Lower - General Chief Complaint: Leg Swelling Stated Complaint: SWELLING OF RIGHT LEG Time Seen by Provider: 08/30/17 10:42 Notes: Chief complaint: Right leg swelling History of complain:( obtained from-patient) 61 years old male with chronic history of stasis dermatosis of both lower extremity, with thickening of the skin, repeated episodes of cellulitis presents today with redness and warmth and episode of fever. He was on antibiotic recently for an abdominal cyst which was discontinued a week ago. The cyst has completely healed. He also has a history of congestive heart failure currently has no shortness of breath no chest pain. Denies any current fever chills Onset: Gradual Severity: Mild to moderate Quality: Dull Context: History of congestive heart failure and stasis dermatosis Exacerbating factor and relieving factors: Sitting for a long time increases the swelling, laying down in the morning is less. REVIEW OF SYSTEMS: CONSTITUTIONAL : Denies fever, chills, or sweats. Denies recent illness. EENT: Denies eye, ear, throat, or mouth pain or symptoms. Denies nasal or sinus congestion or discharge. Denies throat, tongue, or mouth swelling or difficulty swallowing. CARDIOVASCULAR: Denies chest pain. Denies palpitations or racing or irregular heart beat. Denies ankle edema. RESPIRATORY: Denies cough, cold, or chest congestion. Denies shortness of breath, difficulty breathing, or wheezing. GASTROINTESTINAL: Denies distention. Denies nausea, vomiting, or diarrhea. Denies blood in vomitus, stools, or per rectum. Denies black, tarry stools. Denies constipation. GENITOURINARY: Denies difficulty urinating, painful urination, burning, frequency, blood in urine, or discharge. FEMALE GENITOURINARY: Denies vaginal bleeding, heavy or abnormal periods, irregular periods. Denies vaginal discharge or odor. MUSCULOSKELETAL: Denies back or neck pain or stiffness. Denies joint pain or swelling. SKIN: Denies rash, lesions or sores. HEMATOLOGIC : Denies easy bruising or bleeding. LYMPHATIC: Denies swollen, enlarged glands. NEUROLOGICAL: Denies confusion or altered mental status. Denies passing out or loss of consciousness. Denies dizziness or lightheadedness. Denies headache. Denies weakness or paralysis or loss of use of either side. Denies problems with gait or speech. Denies sensory loss, numbness, or tingling. Denies seizures. PSYCHIATRIC: Denies anxiety or stress. Denies depression, suicidal ideation, or homicidal ideation. ALL OTHER SYSTEMS REVIEWED AND NEGATIVE. PHYSICAL EXAMINATION: GENERAL: Well-appearing, well-nourished and in no acute distress. Morbid obesity HEAD: Atraumatic, normocephalic. EYES: Pupils equal round and reactive to light, extraocular movements intact, conjunctiva are normal. ENT: Nares patent, oropharynx clear without exudates. Moist mucous membranes. NECK: Normal range of motion, supple without lymphadenopathy LUNGS: Breath sounds clear to auscultation bilaterally and equal. No wheezes rales or rhonchi. HEART: Regular rate and rhythm without murmurs ABDOMEN: Soft, nontender, nondistended abdomen. No guarding, no rebound. No masses appreciated. Examination of genitals-deferred Musculoskeletal: Examination of both lower extremities, shows stasis dermatosis with irregular thickened skin. Almost appeared like elephantiasis, with chronic lymphedema. Right lower leg has scattered erythema which is warm to touch. Nontender. No pitting edema noted. NEUROLOGICAL: Cranial nerves grossly intact. Normal speech, normal gait. Normal sensory, motor exams PSYCH: Normal mood, normal affect. SKIN: Warm, Dry, normal turgor, no rashes or lesions noted. Dictation was performed using [employer] voice recognition software TRAVEL OUTSIDE OF THE [place] IN LAST 30 DAYS: No - Related Data Allergies/Adverse Reactions: benztropine [From Cogentin] Allergy (Verified 08/30/17 10:42) codeine [Codeine] Allergy (Verified 08/30/17 10:42) Penicillins Allergy (Verified 08/30/17 10:42) Past Medical History - Social History Smoking Status: Never Smoker Chew tobacco use (# tins/day): No Frequency of alcohol use: None Drug Abuse: None Family History: Reviewed & Not Pertinent Patient has suicidal ideation: No Patient has homicidal ideation: No - Past Medical History Cardiac Medical History: Reports: Hx Congestive Heart Failure, Hx Coronary Artery Disease, Hx DVT, Hx Hypercholesterolemia, Hx Hypertension, Hx Pulmonary Embolism Denies: Hx Atrial Fibrillation, Hx Heart Attack, Hx Peripheral Vascular Disease, Hx Heart Murmur Pulmonary Medical History: Reports: Hx Asthma, Hx COPD, Hx Pneumonia, Hx Sleep Apnea Denies: Hx Bronchitis, Hx Respiratory Failure, Hx Tuberculosis Neurological Medical History: Denies: Hx Cerebrovascular Accident, Hx Seizures Endocrine Medical History: Reports: Hx Diabetes Mellitus Type 2. Denies: Hx Graves' Disease, Hx Hyperthyroidism, Hx Hypothyroidism Renal/ Medical History: Denies: Hx Peritoneal Dialysis Malignancy Medical History: Denies Hx Leukemia, Denies Hx Lung Cancer GI Medical History: Reports: Hx Hiatal Hernia. Denies: Hx Crohn's Disease, Hx Gastroesophageal Reflux Disease, Hx Irritable Bowel, Hx Liver Failure, Hx Pancreatitis, Hx Ulcer Musculoskeltal Medical History: Denies Hx Arthritis, Denies Hx Fibromyalgia, Denies Hx Muscular Dystrophy Psychiatric Medical History: Reports: Hx Anxiety, Hx Depression, Hx Post Traumatic Stress Disorder, Hx Schizophrenia Denies: Hx Bipolar Disorder Traumatic Medical History: Reports: Hx Fractures Infectious Medical History: Denies: Hx HIV Past Surgical History: Reports: Hx Abdominal Surgery - hernia repair, Hx Cardiac Catheterization - 30% blockage, Hx Genitourinary Surgery - VASECTOMY, Hx Herniorrhaphy, Hx Oral Surgery - TOOTH EXTRACTION, Hx Orthopedic Surgery - PLATE SCREWS DISC AND BONE GRAFT: NECK, Hx Tonsillectomy. Denies: Hx Appendectomy, Hx Bowel Surgery, Hx Cholecystectomy, Hx Colostomy, Hx Coronary Artery Bypass Graft, Hx Gastric Bypass Surgery, Hx Pacemaker - Immunizations Hx Diphtheria, Pertussis, Tetanus Vaccination: No Hx Pneumococcal Vaccination: 04/07/09 Review of Systems - Review of Systems Notes: Dictated Physical Exam - Vital signs Vitals: Temp Pulse Resp BP Pulse Ox 98.4 F 86 22 H 159/78 H 95 08/30/17 10:27 08/30/17 10:27 08/30/17 10:27 08/30/17 10:27 08/30/17 10:27 - Notes Notes: Dictated Course - Vital Signs Vital signs: Temp Pulse Resp BP Pulse Ox 98.4 F 86 22 H 159/78 H 95 08/30/17 10:27 08/30/17 10:27 08/30/17 10:27 08/30/17 10:27 08/30/17 10:27 - Laboratory Result Diagrams: 08/30/17 11:44 08/30/17 11:44 Laboratory results interpreted by me: 08/30/17 08/30/17 11:44 11:44 Hgb 13.4 L RDW 16.6 H Glucose 157 H Discharge - Discharge Clinical Impression: Cellulitis of right lower extremity, Morbid obesity with BMI of 50.0-59.9, adult, Stasis dermatitis of both legs Condition: Fair Instructions: Cellulitis ([facility]) Prescriptions: Ciprofloxacin HCl [Cipro 500 mg Tablet] 500 mg PO BID #20 tablet Referrals: YOSI HIGHTOWER MD [Primary Care Provider] - Follow up as needed
[2017-08-30 12:15] LABS: ABSOLUTE BASOPHILS # (AUTO) 0.1 10^3/uL (0.0-0.2); ABSOLUTE EOSINOPHILS # (AUTO) 0.2 10^3/uL (0.0-0.6); ABSOLUTE MONOCYTES (AUTO) 0.7 10^3/uL (0.1-1.4); ABSOLUTE NEUT (AUTO) 5.4 10^3/uL (1.7-8.2); BASOPHILS % (AUTO) 0.7 % (0-2); EOSINOPHILS % (AUTO) 2.8 % (0-6); HEMATOCRIT 40.3 % (37.9-51.0); HEMOGLOBIN 13.4 g/dL (13.5-17.0); LYMPHOCYTES % (AUTO) 14.1 % (13-45); MEAN CORPUSCULAR HEMOGLOBIN 27.9 pg (27.0-33.4); MEAN CORPUSCULAR HGB CONC 33.3 g/dL (32.0-36.0); MEAN CORPUSCULAR VOLUME 84 fl (80-97); MONOCYTES % (AUTO) 9.1 % (3-13); PLATELET COUNT 252 10^3/uL (150-450); RED BLOOD COUNT 4.81 10^6/uL (4.35-5.55); RED CELL DISTRIBUTION WIDTH 16.6 % (11.5-14.0); SEGMENTED NEUTROPHILS % (AUTO) 73.3 % (42-78); TOTAL CELLS COUNTED % (AUTO) 100 %; WHITE BLOOD COUNT 7.3 10^3/uL (4.0-10.5)
[2017-08-30 12:28] LABS: ANION GAP 10 (5-19); BLOOD UREA NITROGEN 18 mg/dL (7-20); CALCIUM 9.8 mg/dL (8.4-10.2); CARBON DIOXIDE 28 mmol/L (22-30); CHLORIDE 103 mmol/L (98-107); GLUCOSE 157 mg/dL (75-110); POTASSIUM 3.9 mmol/L (3.6-5.0); SODIUM 141.3 mmol/L (137-145)
[2017-08-30 14:54] VITALS: BP 145/88
== END 2017-08-30 14:50 | disposition home or self-care (01) ==
LOC: ER 10:21
DX: L03.115 Cellulitis of right lower limb (principal); I87.2 Venous insufficiency (chronic) (peripheral); E66.01 Morbid (severe) obesity due to excess calories; Z68.43 Body mass index [BMI] 50.0-59.9, adult; I25.10 Atherosclerotic heart disease of native coronary artery without angina pectoris; I10 Essential (primary) hypertension; J44.9 Chronic obstructive pulmonary disease, unspecified; E11.9 Type 2 diabetes mellitus without complications; Z88.8 Allergy status to other drugs, medicaments and biological substances; Z88.5 Allergy status to narcotic agent; Z88.0 Allergy status to penicillin
CPT/HCPCS: 36415; 80048; 85025; 87040; 99283

== ENCOUNTER → 2017-09-10 | Outpatient (CLI) | payer MEDICARE, MEDICAID ==
[2017-09-10 10:17] LABS: INTERNATIONAL RATION (INR) 1.04; PROTHROMBIN TIME 14.1 SEC (11.4-15.4)
[2017-09-10 10:32] LABS: CHOLESTEROL 187.68 mg/dL (0-200); TRIGLYCERIDES 129 mg/dL (<150)
[2017-09-10 10:44] LABS: DIRECT LDL 102 mg/dL (<100)
[2017-09-12 17:27] LABS: RENIN ACTIVITY 0.735 ng/mL/hr (0.167-5.38)
[2017-09-12 18:37] LABS: NORMETANEPHRINE 126 pg/mL (0-145)
[2017-09-13 15:18] LABS: METANEPHRINE <10 pg/mL (0-62)
== END ==
LOC: OD 09:04
PROVIDERS: ATTEND Internal Medicine Nephrology
DX: I82.409 Acute embolism and thrombosis of unspecified deep veins of unspecified lower extremity (principal); I10 Essential (primary) hypertension; E78.2 Mixed hyperlipidemia; D35.01 Benign neoplasm of right adrenal gland; Z86.711 Personal history of pulmonary embolism
CPT/HCPCS: 36415; 80061; 82088; 82533; 83835; 84244; 85610

== ENCOUNTER 2017-10-31 00:04 | Emergency (ER) | payer MEDICARE, MEDICAID ==
[2017-10-31 01:32] LABS: ABSOLUTE BASOPHILS # (AUTO) 0.1 10^3/uL (0.0-0.2); ABSOLUTE EOSINOPHILS # (AUTO) 0.2 10^3/uL (0.0-0.6); ABSOLUTE LYMPHOCYTES (AUTO) 1.3 10^3/uL (0.5-4.7); ABSOLUTE MONOCYTES (AUTO) 0.7 10^3/uL (0.1-1.4); ABSOLUTE NEUT (AUTO) 7.7 10^3/uL (1.7-8.2); BASOPHILS % (AUTO) 0.5 % (0-2); EOSINOPHILS % (AUTO) 2.1 % (0-6); HEMATOCRIT 39.2 % (37.9-51.0); HEMOGLOBIN 13.2 g/dL (13.5-17.0); LYMPHOCYTES % (AUTO) 12.7 % (13-45); MEAN CORPUSCULAR HEMOGLOBIN 28.1 pg (27.0-33.4); MEAN CORPUSCULAR HGB CONC 33.6 g/dL (32.0-36.0); MEAN CORPUSCULAR VOLUME 84 fl (80-97); PLATELET COUNT 250 10^3/uL (150-450); RED BLOOD COUNT 4.69 10^6/uL (4.35-5.55); SEGMENTED NEUTROPHILS % (AUTO) 77.7 % (42-78); TOTAL CELLS COUNTED % (AUTO) 100 %; WHITE BLOOD COUNT 9.9 10^3/uL (4.0-10.5)
[2017-10-31 01:36] LABS: INTERNATIONAL RATION (INR) 0.99; PROTHROMBIN TIME 13.6 SEC (11.4-15.4)
[2017-10-31 01:38] LABS: APPEARANCE,URINE CLEAR; BILIRUBIN,URINE NEGATIVE (NEGATIVE); COLOR,URINE STRAW; GLUCOSE, URINE NEGATIVE (NEGATIVE); KETONES,URINE NEGATIVE (NEGATIVE); LEUKOCYTE ESTERASE,URINE NEGATIVE (NEGATIVE); NITRITE,URINE NEGATIVE (NEGATIVE); PROTEIN,URINE NEGATIVE (NEGATIVE); URINE SPECIFIC GRAVITY 1.004; UROBILINOGEN,URINE NEGATIVE mg/dL (<2.0)
--- NOTE | 2017-10-31 01:43 | RADIOLOGY REPORT (SQ) ---
EXAM DESCRIPTION: XR CHEST 2 VIEWS COMPLETED DATE/TME: 10/31/2017 00:00 CLINICAL HISTORY: sob COMPARISON: 07/21/2017 FINDINGS: Frontal and lateral views of the chest. Megaly. Pulmonary vascular congestion. No large effusion or pneumothorax. Leads overlie the chest. Postoperative change partially visualized of the cervical spine. Degenerative change of the spine. Upper abdominal soft tissues are unremarkable. IMPRESSION: 1. Cardia megaly with pulmonary vascular congestion.
[2017-10-31 01:46] LABS: ALANINE AMINOTRANSFERASE 27 U/L (21-72); ALBUMIN 4.1 g/dL (3.5-5.0); ALKALINE PHOSPHATASE 100 U/L (38-126); ANION GAP 15 (5-19); ASPARTATE AMINO TRANSFERASE 16 U/L (17-59); BILIRUBIN,DIRECT 0.3 mg/dL (0.0-0.4); BILIRUBIN,TOTAL 0.4 mg/dL (0.2-1.3); BLOOD UREA NITROGEN 15 mg/dL (7-20); CALCIUM 9.3 mg/dL (8.4-10.2); CARBON DIOXIDE 26 mmol/L (22-30); CHLORIDE 104 mmol/L (98-107); CREATINE KINASE 62 U/L (55-170); GLUCOSE 96 mg/dL (75-110); POTASSIUM 4.3 mmol/L (3.6-5.0); SODIUM 144.5 mmol/L (137-145); TOTAL PROTEIN 7.4 g/dL (6.3-8.2)
[2017-10-31] MEDS ORDERED: BUMETANIDE INJ/PF 1 MG/4 ML SDV IV ONE (02:01)
--- NOTE | 2017-10-31 02:02 | ER Document Report ---
ED General - General Chief Complaint: Shortness Of Breath Stated Complaint: SHORTNESS OF BREATH Time Seen by Provider: 10/31/17 01:41 Mode of Arrival: Ambulatory Information source: Patient Notes: 61-year-old male with congestive heart failure, COPD, coronary artery disease, hyperlipidemia, hypertension, diabetes presents with complaint of shortness of breath with exertion, increased leg swelling that started this evening. Patient states that he walked to his mother's house for dinner and became very short of breath and lightheaded. Patient states that he felt like he was going to pass out but did not. He states he ate dinner and felt better but the shortness of breath returned. Patient does take Bumex 2 mg daily. He has not missed any of his medications. He denies any chest pain, nausea, diaphoresis. TRAVEL OUTSIDE OF THE [place] IN LAST 30 DAYS: No - HPI Onset: Just prior to arrival Onset/Duration: Sudden Quality of pain: No pain Associated symptoms: Shortness of breath. denies: Chest pain, Nausea, Sweating Exacerbated by: Movement Relieved by: Remaining still Similar symptoms previously: Yes Recently seen / treated by doctor: Yes - Related Data Allergies/Adverse Reactions: benztropine [From Cogentin] Allergy (Verified 08/30/17 10:42) codeine [Codeine] Allergy (Verified 08/30/17 10:42) Penicillins Allergy (Verified 08/30/17 10:42) Past Medical History - General Information source: Patient - Social History Smoking Status: Never Smoker Frequency of alcohol use: None Drug Abuse: None Lives with: Alone Family History: Reviewed & Not Pertinent - Past Medical History Cardiac Medical History: Reports: Hx Congestive Heart Failure, Hx Coronary Artery Disease, Hx DVT, Hx Hypercholesterolemia, Hx Hypertension, Hx Pulmonary Embolism Denies: Hx Atrial Fibrillation, Hx Heart Attack, Hx Peripheral Vascular Disease, Hx Heart Murmur Pulmonary Medical History: Reports: Hx Asthma, Hx COPD, Hx Pneumonia, Hx Sleep Apnea Denies: Hx Bronchitis, Hx Respiratory Failure, Hx Tuberculosis Neurological Medical History: Denies: Hx Cerebrovascular Accident, Hx Seizures Endocrine Medical History: Reports: Hx Diabetes Mellitus Type 2. Denies: Hx Graves' Disease, Hx Hyperthyroidism, Hx Hypothyroidism Renal/ Medical History: Denies: Hx Peritoneal Dialysis Malignancy Medical History: Denies Hx Leukemia, Denies Hx Lung Cancer GI Medical History: Reports: Hx Hiatal Hernia. Denies: Hx Crohn's Disease, Hx Gastroesophageal Reflux Disease, Hx Irritable Bowel, Hx Liver Failure, Hx Pancreatitis, Hx Ulcer Musculoskeletal Medical History: Denies Hx Arthritis, Denies Hx Fibromyalgia, Denies Hx Muscular Dystrophy Psychiatric Medical History: Reports: Hx Anxiety, Hx Depression, Hx Post Traumatic Stress Disorder, Hx Schizophrenia Denies: Hx Bipolar Disorder Traumatic Medical History: Reports: Hx Fractures Infectious Medical History: Denies: Hx HIV Past Surgical History: Reports: Hx Abdominal Surgery - hernia repair, Hx Cardiac Catheterization - 30% blockage, Hx Genitourinary Surgery - VASECTOMY, Hx Herniorrhaphy, Hx Oral Surgery - TOOTH EXTRACTION, Hx Orthopedic Surgery - PLATE SCREWS DISC AND BONE GRAFT: NECK, Hx Tonsillectomy. Denies: Hx Appendectomy, Hx Bowel Surgery, Hx Cholecystectomy, Hx Colostomy, Hx Coronary Artery Bypass Graft, Hx Gastric Bypass Surgery, Hx Pacemaker - Immunizations Hx Diphtheria, Pertussis, Tetanus Vaccination: No Hx Pneumococcal Vaccination: 04/07/09 Review of Systems - Review of Systems Constitutional: denies: Fever, Weakness EENT: denies: Blurred vision Cardiovascular: Dizziness, Lightheaded. denies: Chest pain Respiratory: Short of breath. denies: Cough Gastrointestinal: Abdomen distended Genitourinary: denies: Flank pain Male Genitourinary: No symptoms reported Musculoskeletal: No symptoms reported Skin: No symptoms reported Hematologic/Lymphatic: No symptoms reported Neurological/Psychological: denies: Weakness, Lost consciousness -: Yes All other systems reviewed and negative Physical Exam - Vital signs Vitals: Resp Pulse Ox 15 96 10/31/17 00:38 10/31/17 00:38 - Notes Notes: PHYSICAL EXAMINATION: GENERAL: Morbidly obese ,well-appearing, well-nourished and in no acute distress. HEAD: Atraumatic, normocephalic. EYES: Pupils equal round and reactive to light, extraocular movements intact, sclera anicteric, conjunctiva are normal. ENT: Nares patent, oropharynx clear without exudates. Moist mucous membranes. NECK: Normal range of motion, supple without lymphadenopathy LUNGS: Diminished breath sounds HEART: Regular rate and rhythm without murmurs ABDOMEN: Soft, nontender, nondistended abdomen. No guarding, no rebound. No masses appreciated. Musculoskeletal: Normal range of motion, 2 + edema. No cyanosis. NEUROLOGICAL: Cranial nerves grossly intact. Normal speech, normal gait. Normal sensory, motor exams PSYCH: Normal mood, normal affect. SKIN: Warm, Dry, normal turgor, no rashes or lesions noted. Course - Re-evaluation Re-evalutation: 10/31/17 05:15 Laboratory 10/31/17 10/31/17 10/31/17 00:39 00:39 00:39 WBC 9.9 RBC 4.69 Hgb 13.2 L Hct 39.2 MCV 84 MCH 28.1 MCHC 33.6 RDW 16.0 H Plt Count 250 Seg Neutrophils % 77.7 Lymphocytes % 12.7 L Monocytes % 7.0 Eosinophils % 2.1 Basophils % 0.5 Absolute Neutrophils 7.7 Absolute Lymphocytes 1.3 Absolute Monocytes 0.7 Absolute Eosinophils 0.2 Absolute Basophils 0.1 PT 13.6 INR 0.99 VBG pH VBG pCO2 VBG HCO3 VBG Base Excess Sodium 144.5 Potassium 4.3 Chloride 104 Carbon Dioxide 26 Anion Gap 15 BUN 15 Creatinine 1.26 H Est GFR ( Amer) > 60 Est GFR (Non-Af Amer) 58 L Glucose 96 Calcium 9.3 Total Bilirubin 0.4 Direct Bilirubin 0.3 Neonat Total Bilirubin Not Reportable Neonat Direct Bilirubin Not Reportable Neonat Indirect Bili Not Reportable AST 16 L ALT 27 Alkaline Phosphatase 100 Creatine Kinase 62 CK-MB (CK-2) Troponin I NT-Pro-B Natriuret Pep Total Protein 7.4 Albumin 4.1 Urine Color Urine Appearance Urine pH Ur Specific [place] Urine Protein Urine Glucose (UA) Urine Ketones Urine Blood Urine Nitrite Urine Bilirubin Urine Urobilinogen Ur Leukocyte Esterase Urine WBC (Auto) Urine Mucus (Auto) Urine Ascorbic Acid 10/31/17 10/31/17 10/31/17 00:39 00:39 00:39 WBC RBC Hgb Hct MCV MCH MCHC RDW Plt Count Seg Neutrophils % Lymphocytes % Monocytes % Eosinophils % Basophils % Absolute Neutrophils Absolute Lymphocytes Absolute Monocytes Absolute Eosinophils Absolute Basophils PT INR VBG pH VBG pCO2 VBG HCO3 VBG Base Excess Sodium Potassium Chloride Carbon Dioxide Anion Gap BUN Creatinine Est GFR ( Amer) Est GFR (Non-Af Amer) Glucose Calcium Total Bilirubin Direct Bilirubin Neonat Total Bilirubin Neonat Direct Bilirubin Neonat Indirect Bili AST ALT Alkaline Phosphatase Creatine Kinase CK-MB (CK-2) 0.77 Troponin I < 0.012 NT-Pro-B Natriuret Pep 144 Total Protein Albumin Urine Color STRAW Urine Appearance CLEAR Urine pH 7.0 Ur Specific [place] 1.004 Urine Protein NEGATIVE Urine Glucose (UA) NEGATIVE Urine Ketones NEGATIVE Urine Blood NEGATIVE Urine Nitrite NEGATIVE Urine Bilirubin NEGATIVE Urine Urobilinogen NEGATIVE Ur Leukocyte Esterase NEGATIVE Urine WBC (Auto) 1 Urine Mucus (Auto) RARE Urine Ascorbic Acid NEGATIVE 10/31/17 03:30 WBC RBC Hgb Hct MCV MCH MCHC RDW Plt Count Seg Neutrophils % Lymphocytes % Monocytes % Eosinophils % Basophils % Absolute Neutrophils Absolute Lymphocytes Absolute Monocytes Absolute Eosinophils Absolute Basophils PT INR VBG pH 7.38 VBG pCO2 49.4 VBG HCO3 28.6 VBG Base Excess 2.7 Sodium Potassium Chloride Carbon Dioxide Anion Gap BUN Creatinine Est GFR ( Amer) Est GFR (Non-Af Amer) Glucose Calcium Total Bilirubin Direct Bilirubin Neonat Total Bilirubin Neonat Direct Bilirubin Neonat Indirect Bili AST ALT Alkaline Phosphatase Creatine Kinase CK-MB (CK-2) Troponin I NT-Pro-B Natriuret Pep Total Protein Albumin Urine Color Urine Appearance Urine pH Ur Specific [place] Urine Protein Urine Glucose (UA) Urine Ketones Urine Blood Urine Nitrite Urine Bilirubin Urine Urobilinogen Ur Leukocyte Esterase Urine WBC (Auto) Urine Mucus (Auto) Urine Ascorbic Acid Chest X-Ray 10/31/17 00:00 IMPRESSION: 1. Cardia megaly with pulmonary vascular congestion. Chest/Abdomen CTA 10/31/17 02:51 IMPRESSION: 1. No pulmonary embolus identified. 2. Hepatic steatosis. 3. Coronary artery atherosclerosis. This exam was performed according to our departmental dose-optimization program, which includes automated exposure control, adjustment of the mA and/or kV according to patient size and/or use of iterative reconstruction technique. 61-year-old morbidly obese male with congestive heart failure presents with complaint of increasing shortness of breath and leg swelling that started just prior to arrival. Upon arrival vitals reviewed and within normal limits. Patient is not hypoxic or in respiratory distress. Patient did receive 2 mg of Bumex IV and has had a large amount of urinary output. Chest x-ray does show cardiomegaly with pulmonary vascular congestion. CTA was obtained and showed no evidence of PE. I did discuss admission of the patient with hospitalist who agrees that she sees no reason or advantage for admission at this time. Patient has a normal blood gas, BNP and cardiac enzymes. He is not requiring additional oxygen. Patient was advised to cut down on his fluid and Patient provided the opportunity to ask questions, and express concerns. Discharge instructions discussed. Patient is agreeable with discharge home. Return indications explained and discussed with the patient who displays understanding. Patient encouraged to return to the emergency department immediately with any concerns. Salt intake. Patient does have an upcoming appointment with Dr. Rubi on November 03 at 3 PM. 10/31/17 12:56 - Vital Signs Vital signs: Temp Pulse Resp BP Pulse Ox 14 139/79 H 95 10/31/17 04:00 10/31/17 01:01 10/31/17 04:00 - Laboratory Result Diagrams: 10/31/17 00:39 10/31/17 00:39 Laboratory results interpreted by me: 10/31/17 10/31/17 00:39 00:39 Hgb 13.2 L RDW 16.0 H Lymphocytes % 12.7 L Creatinine 1.26 H Est GFR (Non-Af Amer) 58 L AST 16 L - Diagnostic Test Radiology reviewed: Image reviewed, Reports reviewed Discharge - Discharge Clinical Impression: Morbid obesity with BMI of 50.0-59.9, adult, Obesity hypoventilation syndrome Dyspnea Qualifiers: Dyspnea type: dyspnea on exertion Qualified Code(s): R06.09 - Other forms of dyspnea CHF (congestive heart failure) Qualifiers: Heart failure type: unspecified Heart failure chronicity: chronic Qualified Code(s): I50.9 - Heart failure, unspecified Condition: Good Disposition: HOME, SELF-CARE Instructions: Congestive Heart Failure ([facility]), Dyspnea, Nonspecific ([facility]) Additional Instructions: Please keep your already scheduled appointment with Dr. Rubi Friday. Please limit your fluid intake. Please limit foods that are high in salt. Please return with any concerns. Forms: Elevated Blood Pressure Referrals: YOSI HIGHTOWER MD [Primary Care Provider] - Follow up as needed
[2017-10-31 02:19] LABS: CREATINE KINASE MB 0.77 ng/mL (<4.55)
[2017-10-31 02:20] LABS: TROPONIN I < 0.012 ng/mL
[2017-10-31 03:44] LABS: VENOUS BLOOD BASE EXCESS 2.7 mmol/L; VENOUS BLOOD HCO3 28.6 mmol/L (20-32); VENOUS BLOOD PCO2 49.4 mmHg (35-63); VENOUS BLOOD PH 7.38 (7.30-7.42)
[2017-10-31 04:36] VITALS: BP 139/79
--- NOTE | 2017-10-31 04:55 | RADIOLOGY REPORT (SQ) ---
EXAM DESCRIPTION: CT CHEST ANGIOGRAPHY WITH IV CONTRAST COMPLETED DATE/TME: 10/31/2017 02:51 CLINICAL HISTORY: sob COMPARISON: 07/30/2017 TECHNIQUE: CTA of the chest obtained following the uncomplicated intravenous administration of 100 mL Isovue-370. 3-D/MIP reformatted images of the chest available for evaluation. DLP: 1886.18 mGycm FINDINGS: Chest: Pulmonary arteries: Contrast bolus is adequate.No filling defects identified in the pulmonary arteries to suggest pulmonary embolus. Thyroid:No abnormalities of the visualized thyroid. Great Vessels:Great vessels have normal anatomic configuration. Thoracic Aorta: Atherosclerotic calcification of the thoracic aorta. Heart: Coronary artery atherosclerosis. No pericardial effusion or cardiomegaly. Lymph Nodes:No enlarged mediastinal lymph nodes identified. Esophagus:No abnormalities of the esophagus identified. Other:No additional findings. Lungs:No alveolar or interstitial airspace opacities identified. Pleura:No pleural effusion or pneumothorax. Trachea/Airways:No abnormalities of the visualized trachea or airways. Bones:No destructive osseous lesions. Degenerative change of the spine. Upper Abdomen:Limited images of the upper abdomen demonstrate no definite abnormalities of visualized portions of the pancreas, spleen, or kidneys. 3.0 cm lipid rich right adrenal adenoma is stable. Decreased density throughout the liver. IMPRESSION: 1. No pulmonary embolus identified. 2. Hepatic steatosis. 3. Coronary artery atherosclerosis. This exam was performed according to our departmental dose-optimization program, which includes automated exposure control, adjustment of the mA and/or kV according to patient size and/or use of iterative reconstruction technique.
--- NOTE | 2017-10-31 09:17 | EKG REPORT ---
SEVERITY:- BORDERLINE ECG - SINUS RHYTHM ATRIAL PREMATURE COMPLEX PROBABLE LEFT ATRIAL ABNORMALITY : Confirmed by: Leticia Garcia MD 31-Oct-2017 09:16:55
== END 2017-10-31 05:34 | disposition home or self-care (01) ==
LOC: ER 00:04
DX: I11.0 Hypertensive heart disease with heart failure (principal); I50.9 Heart failure, unspecified; E66.2 Morbid (severe) obesity with alveolar hypoventilation; Z68.43 Body mass index [BMI] 50.0-59.9, adult; I25.10 Atherosclerotic heart disease of native coronary artery without angina pectoris; K76.0 Fatty (change of) liver, not elsewhere classified; I51.7 Cardiomegaly; J44.9 Chronic obstructive pulmonary disease, unspecified; R14.0 Abdominal distension (gaseous); R09.89 Other specified symptoms and signs involving the circulatory and respiratory systems; E11.9 Type 2 diabetes mellitus without complications; R06.09 Other forms of dyspnea; R06.02 Shortness of breath; R42 Dizziness and giddiness; Z88.0 Allergy status to penicillin; Z88.8 Allergy status to other drugs, medicaments and biological substances; Z88.5 Allergy status to narcotic agent; Z79.899 Other long term (current) drug therapy
CPT/HCPCS: 93005; 99285; 96374; 36415; 82553; 82550; 85025; 85610; 80053; 81001; 84484; 82803; 83880; 71046; 71275; 93010; J3490

== ENCOUNTER 2017-12-07 17:27 | Emergency (ER) | payer MEDICARE, MEDICAID ==
--- NOTE | 2017-12-07 18:07 | ER Document Report ---
ED Medical Screen (RME) - General Chief Complaint: Weakness Stated Complaint: WEAKNESS Time Seen by Provider: 12/07/17 17:56 TRAVEL OUTSIDE OF THE [place] IN LAST 30 DAYS: No - HPI Notes: 12/07/17 18:06 Patient is morbidly obese complaining of weakness along with multiple other complaints - Related Data Allergies/Adverse Reactions: benztropine [From Cogentin] Allergy (Verified 08/30/17 10:42) codeine [Codeine] Allergy (Verified 08/30/17 10:42) Penicillins Allergy (Verified 08/30/17 10:42) Past Medical History - Social History Chew tobacco use (# tins/day): No Frequency of alcohol use: None Drug Abuse: None - Past Medical History Cardiac Medical History: Reports: Hx Congestive Heart Failure, Hx Coronary Artery Disease, Hx DVT, Hx Hypercholesterolemia, Hx Hypertension, Hx Pulmonary Embolism Denies: Hx Atrial Fibrillation, Hx Heart Attack, Hx Peripheral Vascular Disease, Hx Heart Murmur Pulmonary Medical History: Reports: Hx Asthma, Hx COPD, Hx Pneumonia, Hx Sleep Apnea Denies: Hx Bronchitis, Hx Respiratory Failure, Hx Tuberculosis Neurological Medical History: Denies: Hx Cerebrovascular Accident, Hx Seizures Endocrine Medical History: Reports: Hx Diabetes Mellitus Type 2. Denies: Hx Graves' Disease, Hx Hyperthyroidism, Hx Hypothyroidism Renal/ Medical History: Denies: Hx Peritoneal Dialysis Malignancy Medical History: Denies Hx Leukemia, Denies Hx Lung Cancer GI Medical History: Reports: Hx Hiatal Hernia. Denies: Hx Crohn's Disease, Hx Gastroesophageal Reflux Disease, Hx Irritable Bowel, Hx Liver Failure, Hx Pancreatitis, Hx Ulcer Musculoskeltal Medical History: Denies Hx Arthritis, Denies Hx Fibromyalgia, Denies Hx Muscular Dystrophy Psychiatric Medical History: Reports: Hx Anxiety, Hx Depression, Hx Post Traumatic Stress Disorder, Hx Schizophrenia Denies: Hx Bipolar Disorder Traumatic Medical History: Reports: Hx Fractures Infectious Medical History: Denies: Hx HIV Past Surgical History: Reports: Hx Abdominal Surgery - hernia repair, Hx Cardiac Catheterization - 30% blockage, Hx Genitourinary Surgery - VASECTOMY, Hx Herniorrhaphy, Hx Oral Surgery - TOOTH EXTRACTION, Hx Orthopedic Surgery - PLATE SCREWS DISC AND BONE GRAFT: NECK, Hx Tonsillectomy. Denies: Hx Appendectomy, Hx Bowel Surgery, Hx Cholecystectomy, Hx Colostomy, Hx Coronary Artery Bypass Graft, Hx Gastric Bypass Surgery, Hx Pacemaker - Immunizations Hx Diphtheria, Pertussis, Tetanus Vaccination: No Review of Systems - Review of Systems Constitutional: Weakness Physical Exam - Vital signs Vitals: Temp Pulse Resp BP Pulse Ox 97.8 F 72 16 182/76 H 96 12/07/17 17:34 12/07/17 17:34 12/07/17 17:34 12/07/17 17:34 12/07/17 17:34 - HEENT Head: Normocephalic Eyes: Normal - Cardiovascular Rhythm: Regular Heart sounds: Normal auscultation Course - Vital Signs Vital signs: Temp Pulse Resp BP Pulse Ox 97.8 F 72 16 182/76 H 96 18 17:34 12/07/17 17:34 12/07/17 17:34 12/07/17 17:34 12/07/17 17:34 Doctor's Discharge - Discharge Referrals: YOSI HIGHTOWER MD [Primary Care Provider] - Follow up as needed
[2017-12-07 18:43] LABS: ABSOLUTE BASOPHILS # (AUTO) 0.1 10^3/uL (0.0-0.2); ABSOLUTE EOSINOPHILS # (AUTO) 0.2 10^3/uL (0.0-0.6); ABSOLUTE LYMPHOCYTES (AUTO) 1.2 10^3/uL (0.5-4.7); ABSOLUTE MONOCYTES (AUTO) 0.7 10^3/uL (0.1-1.4); ABSOLUTE NEUT (AUTO) 6.2 10^3/uL (1.7-8.2); BASOPHILS % (AUTO) 0.7 % (0-2); EOSINOPHILS % (AUTO) 1.9 % (0-6); HEMATOCRIT 41.6 % (37.9-51.0); HEMOGLOBIN 14.2 g/dL (13.5-17.0); LYMPHOCYTES % (AUTO) 13.9 % (13-45); MEAN CORPUSCULAR HEMOGLOBIN 28.6 pg (27.0-33.4); MEAN CORPUSCULAR VOLUME 84 fl (80-97); MONOCYTES % (AUTO) 8.9 % (3-13); PLATELET COUNT 232 10^3/uL (150-450); RED BLOOD COUNT 4.96 10^6/uL (4.35-5.55); SEGMENTED NEUTROPHILS % (AUTO) 74.6 % (42-78); TOTAL CELLS COUNTED % (AUTO) 100 %; WHITE BLOOD COUNT 8.3 10^3/uL (4.0-10.5)
[2017-12-07 18:52] LABS: INTERNATIONAL RATION (INR) 0.97; PROTHROMBIN TIME 13.4 SEC (11.4-15.4)
[2017-12-07 19:08] LABS: ALANINE AMINOTRANSFERASE 26 U/L (21-72); ALBUMIN 4.2 g/dL (3.5-5.0); ALKALINE PHOSPHATASE 96 U/L (38-126); ANION GAP 13 (5-19); ASPARTATE AMINO TRANSFERASE 26 U/L (17-59); BILIRUBIN,DIRECT 0.4 mg/dL (0.0-0.4); BILIRUBIN,TOTAL 0.5 mg/dL (0.2-1.3); BLOOD UREA NITROGEN 19 mg/dL (7-20); CALCIUM 9.7 mg/dL (8.4-10.2); CARBON DIOXIDE 30 mmol/L (22-30); CHLORIDE 96 mmol/L (98-107); CREATINE KINASE 70 U/L (55-170); GLUCOSE 158 mg/dL (75-110); LIPASE 337.2 U/L (23-300); POTASSIUM 3.5 mmol/L (3.6-5.0); SODIUM 139.2 mmol/L (137-145); TOTAL PROTEIN 8.1 g/dL (6.3-8.2)
--- NOTE | 2017-12-07 19:11 | EKG REPORT ---
SEVERITY:- ABNORMAL ECG - SINUS RHYTHM LEO, CONSIDER BIATRIAL ABNORMALITIES : Confirmed by: Richard Go MD 07-Dec-2017 19:10:36
[2017-12-07 19:20] LABS: CREATINE KINASE MB 0.63 ng/mL (<4.55); NT PRO BNP 69 pg/mL (5-900)
[2017-12-07 19:20] LABS: APPEARANCE,URINE SLIGHTLY-CLOUDY; BILIRUBIN,URINE NEGATIVE (NEGATIVE); COLOR,URINE YELLOW; GLUCOSE, URINE NEGATIVE (NEGATIVE); KETONES,URINE NEGATIVE (NEGATIVE); LEUKOCYTE ESTERASE,URINE LARGE (NEGATIVE); NITRITE,URINE NEGATIVE (NEGATIVE); PROTEIN,URINE NEGATIVE (NEGATIVE); URINE SPECIFIC GRAVITY 1.005; UROBILINOGEN,URINE NEGATIVE mg/dL (<2.0)
[2017-12-07 19:21] LABS: TROPONIN I < 0.012 ng/mL
--- NOTE | 2017-12-07 19:35 | ER Document Report ---
ED General - General Chief Complaint: Weakness Stated Complaint: WEAKNESS Time Seen by Provider: 12/07/17 17:56 Mode of Arrival: Stretcher Information source: Patient Notes: 62-year-old male patient presents to the emergency department stating he feels weaker than normal. Pt was started on Metolazone 2 days ago and since patient stated that he feels as though he is "more swollen than normal." Patient states he usually walks 30 yards to his parents house, and can normally make the walk with out issues. Patient stated in the last few days he has had to make multiple stops while walking and gets short of breath upon exertion. Patient is also complaining of bilateral flank pain and right upper quadrant pain, has a history of kidney stones and gallstones. Patient denies nausea, vomiting, diarrhea, fever, or URI symptoms. Patient denies smoking, illicit drugs, EtOH. Patient is very soft-spoken and at times during questioning and exam begins to cry. Patient denies the crying is due to pain states he just feels weak. TRAVEL OUTSIDE OF THE [place] IN LAST 30 DAYS: No - Related Data Allergies/Adverse Reactions: benztropine [From Cogentin] Allergy (Verified 12/07/17 19:42) codeine [Codeine] Allergy (Verified 12/07/17 19:42) Penicillins Allergy (Verified 12/07/17 19:42) Past Medical History - General Information source: Patient - Social History Smoking Status: Former Smoker Chew tobacco use (# tins/day): No Frequency of alcohol use: None Drug Abuse: None Lives with: Alone Family History: Reviewed & Not Pertinent Patient has suicidal ideation: No Patient has homicidal ideation: No - Past Medical History Cardiac Medical History: Reports: Hx Congestive Heart Failure, Hx Coronary Artery Disease, Hx DVT, Hx Hypercholesterolemia, Hx Hypertension, Hx Pulmonary Embolism Denies: Hx Atrial Fibrillation, Hx Heart Attack, Hx Peripheral Vascular Disease, Hx Heart Murmur Pulmonary Medical History: Reports: Hx Asthma, Hx COPD, Hx Pneumonia, Hx Sleep Apnea Denies: Hx Bronchitis, Hx Respiratory Failure, Hx Tuberculosis Neurological Medical History: Denies: Hx Cerebrovascular Accident, Hx Seizures Endocrine Medical History: Reports: Hx Diabetes Mellitus Type 2. Denies: Hx Graves' Disease, Hx Hyperthyroidism, Hx Hypothyroidism Renal/ Medical History: Denies: Hx Peritoneal Dialysis Malignancy Medical History: Denies Hx Leukemia, Denies Hx Lung Cancer GI Medical History: Reports: Hx Hiatal Hernia. Denies: Hx Crohn's Disease, Hx Gastroesophageal Reflux Disease, Hx Irritable Bowel, Hx Liver Failure, Hx Pancreatitis, Hx Ulcer Musculoskeletal Medical History: Denies Hx Arthritis, Denies Hx Fibromyalgia, Denies Hx Muscular Dystrophy Psychiatric Medical History: Reports: Hx Anxiety, Hx Depression, Hx Post Traumatic Stress Disorder, Hx Schizophrenia Denies: Hx Bipolar Disorder Traumatic Medical History: Reports: Hx Fractures Infectious Medical History: Denies: Hx HIV Past Surgical History: Reports: Hx Abdominal Surgery - hernia repair, Hx Cardiac Catheterization - 30% blockage, Hx Genitourinary Surgery - VASECTOMY, Hx Herniorrhaphy, Hx Oral Surgery - TOOTH EXTRACTION, Hx Orthopedic Surgery - PLATE SCREWS DISC AND BONE GRAFT: NECK, Hx Tonsillectomy. Denies: Hx Appendectomy, Hx Bowel Surgery, Hx Cholecystectomy, Hx Colostomy, Hx Coronary Artery Bypass Graft, Hx Gastric Bypass Surgery, Hx Pacemaker - Immunizations Hx Diphtheria, Pertussis, Tetanus Vaccination: No Hx Pneumococcal Vaccination: 04/07/09 Review of Systems - Review of Systems Constitutional: See HPI EENT: No symptoms reported Cardiovascular: See HPI Respiratory: See HPI Gastrointestinal: See HPI. denies: Abdomen distended Genitourinary: denies: Burning, Dysuria, Frequency, Hematuria Male Genitourinary: No symptoms reported Musculoskeletal: See HPI Skin: See HPI Hematologic/Lymphatic: See HPI Neurological/Psychological: See HPI Physical Exam - Vital signs Vitals: Temp Pulse Resp BP Pulse Ox 97.8 F 72 16 182/76 H 96 12/07/17 17:34 12/07/17 17:34 12/07/17 17:34 12/07/17 17:34 12/07/17 17:34 - Notes Notes: GENERAL: Alert, interacts well. No acute distress. HEAD: Normocephalic, atraumatic. EYES: Pupils equal, round, and reactive to light. Extraocular movements intact. ENT: Oral mucosa moist, tongue midline. NECK: Full range of motion. Supple. Trachea midline. LUNGS: Clear to auscultation bilaterally, no wheezes, rales, or rhonchi. No respiratory distress while lying in hospital bed. HEART: Regular rate and rhythm. No murmur ABDOMEN: Soft, non-tender. Non-distended. Bowel sounds present in all 4 quadrants. No CVA tenderness. No Schilling sign tenderness. EXTREMITIES: Moves all 4 extremities spontaneously. BACK: no cervical, thoracic, lumbar midline tenderness. No saddle anesthesia, normal distal neurovascular exam. NEUROLOGICAL: Alert and oriented x3. Normal speech. - Extremities Ankle: Edema Foot: Edema - Psychological Associated symptoms: Depressed - Skin Skin Temperature: Warm Skin Moisture: Dry Skin Color: Normal Skin Turgor: Edematous Irregularity with: Swelling. negative: Tenderness, Warmth, Weeping Course - Re-evaluation Re-evalutation: Abdominal exam benign. Patient denies any pain upon palpation all 4 quadrants. No CVA tenderness. urinalysis reveal urinary tract infection, will treat for same. Patient able to sit on the edge of bed and stand without respiratory issues. Reviewed lab results with patient patient understands need for follow- up with primary care within 24-48 hours. Return precautions given. - Vital Signs Vital signs: Temp Pulse Resp BP Pulse Ox 98.1 F 74 20 143/72 H 97 12/07/17 20:41 12/07/17 20:30 12/07/17 20:30 12/07/17 20:30 12/07/17 20:30 - Laboratory Result Diagrams: 12/07/17 18:30 12/07/17 18:30 Laboratory results interpreted by me: 12/07/17 12/07/17 12/07/17 18:30 18:30 18:55 RDW 16.0 H Potassium 3.5 L Chloride 96 L Glucose 158 H Lipase 337.2 H Ur Leukocyte Esterase LARGE H Discharge - Discharge Clinical Impression: Weakness, Hypokalemia Urinary tract infection Qualifiers: Urinary tract infection type: acute cystitis Hematuria presence: without hematuria Qualified Code(s): N30.00 - Acute cystitis without hematuria Condition: Stable Disposition: HOME, SELF-CARE Additional Instructions: Your workup shows mild low potassium. You have been supplemented with potassium in the emergency department. Your urine shows signs of infection, he will be treated with a medication called Keflex. Take as prescribed. Should you develop fever, vomiting, or any other concerning symptoms please return to the emergency department. Follow-up with primary care within 24 hours. Prescriptions: Cephalexin Monohydrate [Keflex 500 mg Capsule] 500 mg PO BID 5 Days #10 capsule Referrals: YOSI HIGHTOWER MD [Primary Care Provider] - Follow up as needed
--- NOTE | 2017-12-07 20:00 | RADIOLOGY REPORT (SQ) ---
EXAM DESCRIPTION: CHEST SINGLE VIEW COMPLETED DATE/TIME: 12/07/2017 7:38 pm REASON FOR STUDY: CHF COMPARISON: 10/31/2017 NUMBER OF VIEWS: One view. TECHNIQUE: Single frontal radiographic view of the chest acquired. LIMITATIONS: None. FINDINGS: LUNGS AND PLEURA: Unchanged mild vascular congestion. No developing infiltrates. No pneu mothorax or significant pleural fluid. MEDIASTINUM AND HILAR STRUCTURES: Stable contours. HEART AND VASCULAR STRUCTURES: Cardiac enlargement. BONES: No acute findings. HARDWARE: None in the chest. OTHER: No other significant finding. IMPRESSION: Unchanged cardiomegaly with vascular congestion. TECHNICAL DOCUMENTATION: JOB ID: [id number] Charge Payment- All Rights Reserved Reading location - IP/workstation name: [email or web address]
[2017-12-07] MEDS ORDERED: POTASSIUM CHLORIDE 10 MEQ CAPSULE.ER PO ONE (20:14)
[2017-12-07 20:32] VITALS: BP 143/72
== END 2017-12-07 20:52 | disposition home or self-care (01) ==
LOC: ER 17:27
DX: N30.00 Acute cystitis without hematuria (principal); E87.6 Hypokalemia; I11.0 Hypertensive heart disease with heart failure; I50.9 Heart failure, unspecified; E11.9 Type 2 diabetes mellitus without complications; R53.1 Weakness; J44.9 Chronic obstructive pulmonary disease, unspecified; I25.10 Atherosclerotic heart disease of native coronary artery without angina pectoris; Z88.8 Allergy status to other drugs, medicaments and biological substances; Z88.5 Allergy status to narcotic agent; Z88.0 Allergy status to penicillin; Z87.891 Personal history of nicotine dependence
CPT/HCPCS: 93005; 99285; 36415; 82553; 82550; 83690; 85025; 85610; 80053; 81001; 84484; 83880; 71045; 93010; A9270

== ENCOUNTER → 2018-01-09 | Outpatient (CLI) | payer MEDICARE, MEDICAID ==
[2018-01-09 11:34] LABS: PROTHROMBIN TIME 13.7 SEC (11.4-15.4)
== END ==
LOC: OD 10:35
PROVIDERS: ATTEND Internal Medicine Nephrology
DX: I82.409 Acute embolism and thrombosis of unspecified deep veins of unspecified lower extremity (principal); Z86.711 Personal history of pulmonary embolism
CPT/HCPCS: 36415; 85610

== ENCOUNTER → 2018-01-13 | Outpatient (CLI) | payer MEDICARE, MEDICAID ==
[2018-01-13 17:44] LABS: ABSOLUTE EOSINOPHILS # (AUTO) 0.2 10^3/uL (0.0-0.6); ABSOLUTE LYMPHOCYTES (AUTO) 1.3 10^3/uL (0.5-4.7); ABSOLUTE MONOCYTES (AUTO) 0.6 10^3/uL (0.1-1.4); ABSOLUTE NEUT (AUTO) 4.3 10^3/uL (1.7-8.2); BASOPHILS % (AUTO) 0.8 % (0-2); EOSINOPHILS % (AUTO) 2.5 % (0-6); HEMATOCRIT 38.9 % (37.9-51.0); HEMOGLOBIN 13.1 g/dL (13.5-17.0); LYMPHOCYTES % (AUTO) 19.9 % (13-45); MEAN CORPUSCULAR HEMOGLOBIN 28.2 pg (27.0-33.4); MEAN CORPUSCULAR HGB CONC 33.6 g/dL (32.0-36.0); MEAN CORPUSCULAR VOLUME 84 fl (80-97); MONOCYTES % (AUTO) 9.3 % (3-13); PLATELET COUNT 208 10^3/uL (150-450); RED BLOOD COUNT 4.64 10^6/uL (4.35-5.55); RED CELL DISTRIBUTION WIDTH 14.9 % (11.5-14.0); SEGMENTED NEUTROPHILS % (AUTO) 67.5 % (42-78); TOTAL CELLS COUNTED % (AUTO) 100 %; WHITE BLOOD COUNT 6.4 10^3/uL (4.0-10.5)
[2018-01-13 17:48] LABS: APPEARANCE,URINE CLEAR; BILIRUBIN,URINE NEGATIVE (NEGATIVE); COLOR,URINE YELLOW; GLUCOSE, URINE NEGATIVE (NEGATIVE); KETONES,URINE NEGATIVE (NEGATIVE); LEUKOCYTE ESTERASE,URINE NEGATIVE (NEGATIVE); NITRITE,URINE NEGATIVE (NEGATIVE); PROTEIN,URINE NEGATIVE (NEGATIVE); UROBILINOGEN,URINE NEGATIVE mg/dL (<2.0)
[2018-01-13 17:53] LABS: URINE SPECIFIC GRAVITY 1.016
[2018-01-13 17:59] LABS: ALANINE AMINOTRANSFERASE 28 U/L (21-72); ALBUMIN 3.6 g/dL (3.5-5.0); ALKALINE PHOSPHATASE 88 U/L (38-126); ANION GAP 5 (5-19); ASPARTATE AMINO TRANSFERASE 20 U/L (17-59); BILIRUBIN,DIRECT 0.3 mg/dL (0.0-0.4); BILIRUBIN,TOTAL 0.4 mg/dL (0.2-1.3); BLOOD UREA NITROGEN 23 mg/dL (7-20); CALCIUM 9.1 mg/dL (8.4-10.2); CARBON DIOXIDE 30 mmol/L (22-30); CHLORIDE 105 mmol/L (98-107); CHOLESTEROL 177.31 mg/dL (0-200); GLUCOSE 170 mg/dL (75-110); POTASSIUM 4.7 mmol/L (3.6-5.0); SODIUM 139.8 mmol/L (137-145); TOTAL PROTEIN 6.8 g/dL (6.3-8.2); TRIGLYCERIDES 133 mg/dL (<150)
[2018-01-13 18:10] LABS: DIRECT LDL 124 mg/dL (<100)
[2018-01-15 12:38] LABS: CREATININE URINE 88.6 mg/dL (Not Estab.); MICROALBUMIN URINE 30.5 ug/mL (Not Estab.)
== END ==
LOC: OD 17:03
PROVIDERS: ATTEND Internal Medicine Nephrology
DX: E11.9 Type 2 diabetes mellitus without complications (principal); E78.2 Mixed hyperlipidemia; R80.9 Proteinuria, unspecified
CPT/HCPCS: 36415; 80053; 80061; 81001; 82043; 82570; 83036; 85025

== ENCOUNTER 2018-01-14 20:36 | Emergency (ER) | payer MEDICARE, MEDICAID ==
[2018-01-14] MEDS ORDERED: BUMETANIDE INJ/PF 1 MG/4 ML SDV IV ONE (21:28)
[2018-01-14 21:59] LABS: ABSOLUTE BASOPHILS # (AUTO) 0.1 10^3/uL (0.0-0.2); ABSOLUTE EOSINOPHILS # (AUTO) 0.2 10^3/uL (0.0-0.6); ABSOLUTE LYMPHOCYTES (AUTO) 1.6 10^3/uL (0.5-4.7); ABSOLUTE MONOCYTES (AUTO) 0.7 10^3/uL (0.1-1.4); ABSOLUTE NEUT (AUTO) 5.4 10^3/uL (1.7-8.2); BASOPHILS % (AUTO) 0.9 % (0-2); HEMATOCRIT 38.6 % (37.9-51.0); HEMOGLOBIN 13.1 g/dL (13.5-17.0); LYMPHOCYTES % (AUTO) 19.7 % (13-45); MEAN CORPUSCULAR HEMOGLOBIN 28.4 pg (27.0-33.4); MEAN CORPUSCULAR HGB CONC 33.8 g/dL (32.0-36.0); MEAN CORPUSCULAR VOLUME 84 fl (80-97); MONOCYTES % (AUTO) 9.1 % (3-13); PLATELET COUNT 233 10^3/uL (150-450); RED CELL DISTRIBUTION WIDTH 15.1 % (11.5-14.0); SEGMENTED NEUTROPHILS % (AUTO) 67.3 % (42-78); TOTAL CELLS COUNTED % (AUTO) 100 %
[2018-01-14 22:13] LABS: ALANINE AMINOTRANSFERASE 34 U/L (21-72); ALKALINE PHOSPHATASE 86 U/L (38-126); ANION GAP 10 (5-19); ASPARTATE AMINO TRANSFERASE 30 U/L (17-59); BILIRUBIN,DIRECT 0.2 mg/dL (0.0-0.4); BILIRUBIN,TOTAL 0.5 mg/dL (0.2-1.3); BLOOD UREA NITROGEN 19 mg/dL (7-20); CARBON DIOXIDE 31 mmol/L (22-30); CHLORIDE 99 mmol/L (98-107); CREATINE KINASE 92 U/L (55-170); GLUCOSE 153 mg/dL (75-110); POTASSIUM 3.6 mmol/L (3.6-5.0); SODIUM 139.5 mmol/L (137-145); TOTAL PROTEIN 7.6 g/dL (6.3-8.2)
[2018-01-14 22:13] LABS: VENOUS BLOOD BASE EXCESS 4.2 mmol/L; VENOUS BLOOD HCO3 28.4 mmol/L (20-32); VENOUS BLOOD PCO2 40.8 mmHg (35-63); VENOUS BLOOD PH 7.46 (7.30-7.42)
[2018-01-14 22:26] LABS: CREATINE KINASE MB 1.32 ng/mL (<4.55); NT PRO BNP 592 pg/mL (5-900); TROPONIN I < 0.012 ng/mL
--- NOTE | 2018-01-14 22:53 | RADIOLOGY REPORT (SQ) ---
EXAM DESCRIPTION: XR CHEST 2 VIEWS COMPLETED DATE/TME: 01/14/2018 21:28 CLINICAL HISTORY: 62 years Male, sob COMPARISON: 9.2.18. CR October 31, 2017, July 31, 2017. CT report October 31 2016, November 29, 2015. FINDINGS: Adequate lung volume, prominent interstitium, pulmonary vascular congestion, normal cardiac silhouette, moderate vertebral height loss at the thoracolumbar junction, and spinal hardware. Stable. IMPRESSION: No acute cardiopulmonary findings.
--- NOTE | 2018-01-15 00:32 | ER Document Report ---
ED General - General Chief Complaint: Chest Pain Stated Complaint: CHEST PAIN Time Seen by Provider: 01/14/18 20:55 TRAVEL OUTSIDE OF THE [place] IN LAST 30 DAYS: No - HPI Patient complains to provider of: Shortness of breath chest pain Notes: Patient coming in for shortness of breath and chest pain. When asked to identify the area pain patient points to the epigastric region of the stomach. Patient states that he is on Bumex however for the last few days has not been taking the Bumex. Patient not give a good reason was able to explain why he did not take it. Patient otherwise is lying flat resting comfortably. Patient states he feels like he is full of fluid. Denies any fevers chills nausea vomiting diarrhea. States history of PE states he has been compliant with his Eliquis - Related Data Allergies/Adverse Reactions: benztropine [From Cogentin] Allergy (Verified 12/07/17 19:42) codeine [Codeine] Allergy (Verified 12/07/17 19:42) Penicillins Allergy (Verified 12/07/17 19:42) Past Medical History - Social History Smoking Status: Never Smoker Frequency of alcohol use: None Drug Abuse: None Family History: Reviewed & Not Pertinent Patient has suicidal ideation: No Patient has homicidal ideation: No - Past Medical History Cardiac Medical History: Reports: Hx Congestive Heart Failure, Hx Coronary Artery Disease, Hx DVT, Hx Hypercholesterolemia, Hx Hypertension, Hx Pulmonary Embolism Denies: Hx Atrial Fibrillation, Hx Heart Attack, Hx Peripheral Vascular Disease, Hx Heart Murmur Pulmonary Medical History: Reports: Hx Asthma, Hx COPD, Hx Pneumonia, Hx Sleep Apnea Denies: Hx Bronchitis, Hx Respiratory Failure, Hx Tuberculosis Neurological Medical History: Denies: Hx Cerebrovascular Accident, Hx Seizures Endocrine Medical History: Reports: Hx Diabetes Mellitus Type 2. Denies: Hx Graves' Disease, Hx Hyperthyroidism, Hx Hypothyroidism Renal/ Medical History: Denies: Hx Peritoneal Dialysis Malignancy Medical History: Denies Hx Leukemia, Denies Hx Lung Cancer GI Medical History: Reports: Hx Hiatal Hernia. Denies: Hx Crohn's Disease, Hx Gastroesophageal Reflux Disease, Hx Irritable Bowel, Hx Liver Failure, Hx Pancreatitis, Hx Ulcer Musculoskeletal Medical History: Denies Hx Arthritis, Denies Hx Fibromyalgia, Denies Hx Muscular Dystrophy Psychiatric Medical History: Reports: Hx Anxiety, Hx Depression, Hx Post Traumatic Stress Disorder, Hx Schizophrenia Denies: Hx Bipolar Disorder Traumatic Medical History: Reports: Hx Fractures Infectious Medical History: Denies: Hx HIV Past Surgical History: Reports: Hx Abdominal Surgery - hernia repair, Hx Cardiac Catheterization - 30% blockage, Hx Genitourinary Surgery - VASECTOMY, Hx Herniorrhaphy, Hx Oral Surgery - TOOTH EXTRACTION, Hx Orthopedic Surgery - PLATE SCREWS DISC AND BONE GRAFT: NECK, Hx Tonsillectomy. Denies: Hx Appendectomy, Hx Bowel Surgery, Hx Cholecystectomy, Hx Colostomy, Hx Coronary Artery Bypass Graft, Hx Gastric Bypass Surgery, Hx Pacemaker - Immunizations Hx Diphtheria, Pertussis, Tetanus Vaccination: No Hx Pneumococcal Vaccination: 04/07/09 Review of Systems - Review of Systems Constitutional: No symptoms reported EENT: No symptoms reported Cardiovascular: No symptoms reported Respiratory: Short of breath Gastrointestinal: Abdominal pain Genitourinary: No symptoms reported Male Genitourinary: No symptoms reported Musculoskeletal: No symptoms reported Skin: No symptoms reported Hematologic/Lymphatic: No symptoms reported Neurological/Psychological: No symptoms reported -: Yes All other systems reviewed and negative Physical Exam - Vital signs Vitals: Temp Pulse Resp BP Pulse Ox 98.7 F 73 18 157/77 H 97 01/14/18 20:48 01/14/18 20:48 01/14/18 20:48 01/14/18 20:48 01/14/18 20:48 Interpretation: Normal - General General appearance: Appears well, Alert - HEENT Head: Normocephalic, Atraumatic Eyes: Normal Pupils: PERRL - Respiratory Respiratory status: No respiratory distress Chest status: Nontender Breath sounds: Normal Chest palpation: Normal - Cardiovascular Rhythm: Regular Heart sounds: Normal auscultation Murmur: No - Abdominal Inspection: Normal, Morbidly Obese Distension: No distension Bowel sounds: Normal Tenderness: Tender - Mild epigastric tenderness. No: McBurney's point, Schilling' s sign, Guarding, Rebound Organomegaly: No organomegaly - Back Back: Normal, Nontender - Extremities General upper extremity: Normal inspection, Nontender, Normal color, Normal ROM , Normal temperature General lower extremity: Normal inspection, Nontender, Normal color, Normal ROM , Normal temperature, Normal weight bearing. No: Zahira's sign - Neurological Neuro grossly intact: Yes Cognition: Normal Orientation: AAOx4 Chad Coma Scale Eye Opening: Spontaneous Waucoma Coma Scale Verbal: Oriented Chad Coma Scale Motor: Obeys Commands Chad Coma Scale Total: 15 Speech: Normal Motor strength normal: LUE, RUE, LLE, RLE Sensory: Normal - Psychological Associated symptoms: Normal affect, Normal mood - Skin Skin Temperature: Warm Skin Moisture: Dry Skin Color: Normal Course - Re-evaluation Re-evalutation: 01/15/18 04:07 Patient was given a dose of Bumex IV laboratory studies repeat troponins not show any signs of cardiac ischemia or cardiac damage. Patient feeling much better after good diuresis. States patient to be compliant with all of his medications. Patient states understanding patient was discharged home follow- up primary care physician. The patient has atypical chest pain as the patient' s chest pain is not suggestive of pulmonary embolus, cardiac ischemia, aortic dissection, or other serious etiology. Given the extremely low risk of these diagnoses further testing and evaluation for these possibilities does not appear to be indicated at this time. The patient has been instructed to return if the symptoms worsen or change in any way. The patient presents with abdominal pain without signs of peritonitis or other life-threatening or serious etiology. The patient appears stable for discharge and has been instructed to return immediately if the symptoms worsen in any way, or in 8- 12hr if not improved for re-evaluation. The patient has been instructed to return if the symptoms worsen or change in any way. - Vital Signs Vital signs: Temp Pulse Resp BP Pulse Ox 98.3 F 66 18 178/78 H 96 01/15/18 00:52 01/15/18 00:52 01/14/18 20:48 01/15/18 00:52 01/15/18 00:52 - Laboratory Result Diagrams: 01/14/18 21:45 01/14/18 21:45 Laboratory results interpreted by me: 01/14/18 01/14/18 01/14/18 21:45 21:45 22:05 Hgb 13.1 L RDW 15.1 H VBG pH 7.46 H Carbon Dioxide 31 H Glucose 153 H Discharge - Discharge Clinical Impression: Morbid obesity with BMI of 50.0-59.9, adult, Chest heaviness, Anticoagulant long-term use, Non compliance with medical treatment, Epigastric pain CHF (congestive heart failure) Qualifiers: Heart failure type: unspecified Heart failure chronicity: unspecified Qualified Code(s): I50.9 - Heart failure, unspecified Dyspnea Qualifiers: Dyspnea type: unspecified Qualified Code(s): R06.00 - Dyspnea, unspecified Condition: Good Disposition: HOME, SELF-CARE Instructions: Abdominal Pain ([facility]), Chest Pain of Unclear Cause ([facility]), Dyspnea , Nonspecific ([facility]) Additional Instructions: Please take your medications as previously prescribed. Laboratory studies today show no signs of fluid within your lungs no signs of heart strain heart attack no signs of infection. I will highly recommend that you follow-up with your primary care physician. Take all your medications as previously prescribed.
[2018-01-15 00:53] VITALS: BP 178/78
--- NOTE | 2018-01-15 06:48 | EKG REPORT ---
SEVERITY:- NORMAL ECG - SINUS RHYTHM : Confirmed by: Leticia Garcia MD 15-Jan-2018 06:47:42
== END 2018-01-15 00:53 | disposition home or self-care (01) ==
LOC: ER 20:36
DX: E66.01 Morbid (severe) obesity due to excess calories (principal); R07.9 Chest pain, unspecified; R06.02 Shortness of breath; R06.00 Dyspnea, unspecified; R10.13 Epigastric pain; I50.9 Heart failure, unspecified; I25.10 Atherosclerotic heart disease of native coronary artery without angina pectoris; E78.00 Pure hypercholesterolemia, unspecified; I11.0 Hypertensive heart disease with heart failure; Z79.01 Long term (current) use of anticoagulants; Z88.6 Allergy status to analgesic agent; Z88.0 Allergy status to penicillin; I25.2 Old myocardial infarction; Z86.718 Personal history of other venous thrombosis and embolism; Z68.43 Body mass index [BMI] 50.0-59.9, adult; Z91.14 Patient's other noncompliance with medication regimen
CPT/HCPCS: 93005; 99285; 96374; 36415; 82553; 82550; 83690; 85025; 80053; 84484; 82803; 83880; 71046; 93010; J3490

== ENCOUNTER 2018-01-18 20:56 | Emergency (ER) | payer MEDICARE, MEDICAID ==
--- NOTE | 2018-01-18 22:32 | RADIOLOGY REPORT (SQ) ---
XR CHEST 1 VIEW HISTORY: shortness of breath. COMPARISON: 12/07/2017 FINDINGS/IMPRESSION: Cardiomegaly with pulmonary vascular congestion. Query pulmonary edema. Lungs are clear. No large pleural effusions.
[2018-01-18 23:11] LABS: APPEARANCE,URINE CLEAR; BILIRUBIN,URINE NEGATIVE (NEGATIVE); COLOR,URINE YELLOW; GLUCOSE, URINE NEGATIVE (NEGATIVE); KETONES,URINE NEGATIVE (NEGATIVE); LEUKOCYTE ESTERASE,URINE TRACE (NEGATIVE); NITRITE,URINE NEGATIVE (NEGATIVE); PROTEIN,URINE NEGATIVE (NEGATIVE); URINE SPECIFIC GRAVITY 1.005; UROBILINOGEN,URINE NEGATIVE mg/dL (<2.0)
[2018-01-18 23:18] LABS: ABSOLUTE BASOPHILS # (AUTO) 0.1 10^3/uL (0.0-0.2); ABSOLUTE EOSINOPHILS # (AUTO) 0.1 10^3/uL (0.0-0.6); ABSOLUTE LYMPHOCYTES (AUTO) 1.5 10^3/uL (0.5-4.7); ABSOLUTE MONOCYTES (AUTO) 0.7 10^3/uL (0.1-1.4); ABSOLUTE NEUT (AUTO) 5.8 10^3/uL (1.7-8.2); BASOPHILS % (AUTO) 0.7 % (0-2); EOSINOPHILS % (AUTO) 1.8 % (0-6); HEMATOCRIT 40.7 % (37.9-51.0); HEMOGLOBIN 13.8 g/dL (13.5-17.0); LYMPHOCYTES % (AUTO) 18.4 % (13-45); MEAN CORPUSCULAR HEMOGLOBIN 28.5 pg (27.0-33.4); MEAN CORPUSCULAR VOLUME 84 fl (80-97); MONOCYTES % (AUTO) 8.8 % (3-13); PLATELET COUNT 262 10^3/uL (150-450); RED BLOOD COUNT 4.86 10^6/uL (4.35-5.55); RED CELL DISTRIBUTION WIDTH 15.2 % (11.5-14.0); SEGMENTED NEUTROPHILS % (AUTO) 70.3 % (42-78); TOTAL CELLS COUNTED % (AUTO) 100 %; WHITE BLOOD COUNT 8.2 10^3/uL (4.0-10.5)
[2018-01-18 23:41] LABS: ALANINE AMINOTRANSFERASE 26 U/L (21-72); ALBUMIN 3.9 g/dL (3.5-5.0); ALKALINE PHOSPHATASE 94 U/L (38-126); ANION GAP 6 (5-19); ASPARTATE AMINO TRANSFERASE 23 U/L (17-59); BILIRUBIN,DIRECT 0.3 mg/dL (0.0-0.4); BILIRUBIN,TOTAL 0.5 mg/dL (0.2-1.3); BLOOD UREA NITROGEN 21 mg/dL (7-20); CALCIUM 9.4 mg/dL (8.4-10.2); CARBON DIOXIDE 31 mmol/L (22-30); CHLORIDE 102 mmol/L (98-107); GLUCOSE 137 mg/dL (75-110); POTASSIUM 3.7 mmol/L (3.6-5.0); SODIUM 139.3 mmol/L (137-145); TOTAL PROTEIN 7.7 g/dL (6.3-8.2)
[2018-01-18] MEDS ORDERED: BUMETANIDE INJ/PF 1 MG/4 ML SDV IV ONE (23:45)
[2018-01-19] MEDS ORDERED: ALBUTEROL SULFATE 0.083% NEB 2.5 MG/3 ML AMPUL NEB ONE (00:06)
--- NOTE | 2018-01-19 00:22 | ER Document Report ---
ED General - General Chief Complaint: Breathing Difficulty Stated Complaint: SHORTNESS OF BREATH Time Seen by Provider: 01/18/18 22:16 Notes: 62-year-old male with a history of congestive heart failure presents the emergency department complaining of a 2-day history of dyspnea on exertion, extreme shortness of breath when walking, feeling like he is full of fluid for the past 2 days and centralized substernal chest pain that started this evening. Patient states he just feels full and like there is a lot of pressure. Patient states he was seen here 2 days ago, given Bumex and urinated over a gallon while in the emergency department and then was discharged home, states he started feeling badly again yesterday. He does not track his weight at home , does not know if he is gained any weight. States he feels better when laying flat. Has not missed his Bumex or his metolazone. Patient does have a history of DVT and PE. Still taking Eliquis. History of PE is remote. TRAVEL OUTSIDE OF THE [place] IN LAST 30 DAYS: No - Related Data Allergies/Adverse Reactions: benztropine [From Cogentin] Allergy (Verified 12/07/17 19:42) codeine [Codeine] Allergy (Verified 12/07/17 19:42) Penicillins Allergy (Verified 12/07/17 19:42) Past Medical History - General Information source: Patient - Social History Smoking Status: Former Smoker Chew tobacco use (# tins/day): No Frequency of alcohol use: None Drug Abuse: None Family History: Reviewed & Not Pertinent - Past Medical History Cardiac Medical History: Reports: Hx Congestive Heart Failure, Hx Coronary Artery Disease, Hx DVT, Hx Hypercholesterolemia, Hx Hypertension, Hx Pulmonary Embolism Denies: Hx Atrial Fibrillation, Hx Heart Attack, Hx Peripheral Vascular Disease, Hx Heart Murmur Pulmonary Medical History: Reports: Hx Asthma, Hx COPD, Hx Pneumonia, Hx Sleep Apnea Denies: Hx Bronchitis, Hx Respiratory Failure, Hx Tuberculosis Neurological Medical History: Denies: Hx Cerebrovascular Accident, Hx Seizures Endocrine Medical History: Reports: Hx Diabetes Mellitus Type 2. Denies: Hx Graves' Disease, Hx Hyperthyroidism, Hx Hypothyroidism Renal/ Medical History: Denies: Hx Peritoneal Dialysis Malignancy Medical History: Denies Hx Leukemia, Denies Hx Lung Cancer GI Medical History: Reports: Hx Hiatal Hernia. Denies: Hx Crohn's Disease, Hx Gastroesophageal Reflux Disease, Hx Irritable Bowel, Hx Liver Failure, Hx Pancreatitis, Hx Ulcer Musculoskeletal Medical History: Denies Hx Arthritis, Denies Hx Fibromyalgia, Denies Hx Muscular Dystrophy Psychiatric Medical History: Reports: Hx Anxiety, Hx Depression, Hx Post Traumatic Stress Disorder, Hx Schizophrenia Denies: Hx Bipolar Disorder Traumatic Medical History: Reports: Hx Fractures Infectious Medical History: Denies: Hx HIV Past Surgical History: Reports: Hx Abdominal Surgery - hernia repair, Hx Cardiac Catheterization - 30% blockage, Hx Genitourinary Surgery - VASECTOMY, Hx Herniorrhaphy, Hx Oral Surgery - TOOTH EXTRACTION, Hx Orthopedic Surgery - PLATE SCREWS DISC AND BONE GRAFT: NECK, Hx Tonsillectomy. Denies: Hx Appendectomy, Hx Bowel Surgery, Hx Cholecystectomy, Hx Colostomy, Hx Coronary Artery Bypass Graft, Hx Gastric Bypass Surgery, Hx Pacemaker - Immunizations Hx Diphtheria, Pertussis, Tetanus Vaccination: No Hx Pneumococcal Vaccination: 04/07/09 Review of Systems - Review of Systems Constitutional: See HPI, Weakness EENT: No symptoms reported Cardiovascular: See HPI Respiratory: See HPI Gastrointestinal: No symptoms reported Musculoskeletal: See HPI, Leg swelling, Ankle swelling Skin: No symptoms reported -: Yes All other systems reviewed and negative Physical Exam - Vital signs Vitals: Temp Pulse Resp BP Pulse Ox 98.3 F 81 18 172/75 H 97 01/18/18 21:17 01/18/18 21:17 01/18/18 21:17 01/18/18 21:17 01/18/18 21:17 Interpretation: Hypertensive - Notes Notes: GENERAL: Alert, interacts well. No acute distress. Morbidly obese, lying flat in the bed. HEAD: Normocephalic, atraumatic EYES: Pupils equal, round and reactive to light, extraocular movements intact. ENT: Oral mucosa moist, tongue midline. NECK: Full range of motion, supple, trachea midline. LUNGS: Diffuse expiratory wheezing, no rales or rhonchi, no respiratory distress , no tachypnea. HEART: Regular rate and rhythm, no murmurs, gallops, rubs. ABDOMEN: Soft, nontender, nondistended, bowel sounds present in all 4 quadrants. EXTREMITIES: Moves all 4 extremities spontaneously, right leg is larger than the left leg, chronically thickened skin, woody edema as well and is 1+ pitting edema bilaterally, no erythema, no evidence of cellulitis, radial and dorsalis pedis pulses 2/4 bilaterally. No cyanosis. NEUROLOGICAL: Alert and oriented x3, normal speech. PSYCH: Normal mood, normal affect. SKIN: Warm, Dry. Course - Re-evaluation Re-evalutation: 01/19/18 01:27 CBC unremarkable, CMP shows slightly elevated BUN and slightly elevated glucose at 137, cardiac enzymes negative, proBNP at 78 points away from active heart failure, urinalysis shows trace leukocyte esterase, 2 WBCs, no symptoms of urinary tract infection, chest x-ray shows pulmonary vascular congestion, query pulmonary edema. No large pleural effusions. After breathing treatments lungs are clear, patient was ambulated around the emergency department without any difficulty, lowest his oxygen saturation went was 94% on room air, heart rate did go up to 122 but normalized as soon as he sat back down. Patient still states that he has quite a bit of shortness of breath though I cannot reproduce this. Patient will have a CT angiogram of the chest performed given his continued complaints of shortness of breath and his history of PE and chronic DVT. 01/19/18 04:19 CT of the chest reveals no acute process, there is a 3 cm right adrenal adenoma only needs routine follow-up. Patient has urinated quite a bit, is feeling better, still oxygenating well, currently sitting up on the side of the bed without any difficulty. Patient will be discharged home. 01/19/18 04:19 - Vital Signs Vital signs: Temp Pulse Resp BP Pulse Ox 98.3 F 81 8 L 148/81 H 97 01/18/18 21:17 01/18/18 21:17 01/19/18 03:00 01/19/18 04:00 01/19/18 04:01 - Laboratory Result Diagrams: 01/18/18 23:03 01/18/18 23:03 Laboratory results interpreted by me: 01/18/18 01/18/18 01/18/18 23:00 23:03 23:03 RDW 15.2 H Carbon Dioxide 31 H BUN 21 H Glucose 137 H Ur Leukocyte Esterase TRACE H - EKG Interpretation by Me Additional EKG results interpreted by me: 01/19/18 04:20 EKG shows sinus rhythm at a rate of 80, normal normal intervals, no ST segment elevate no T wave inversions per my interpretation. Discharge - Discharge Clinical Impression: BAKER (dyspnea on exertion), Morbid obesity with BMI of 60.0-69.9, adult Condition: Stable Disposition: HOME, SELF-CARE Additional Instructions: Tonight we gave you an extra dose of your Bumex. Please consider weighing yourself every day to track your weights. Please discuss with Dr. Hightower your concerns that you may need to take your metolazone more than 3 times a week. Please also track how your weight does with a 2 L fluid restriction. Referrals: YOSI HIGHTOWER MD [Primary Care Provider] - Follow up as needed
[2018-01-19 00:34] LABS: CREATINE KINASE MB 0.97 ng/mL (<4.55)
[2018-01-19 00:36] LABS: TROPONIN I < 0.012 ng/mL
--- NOTE | 2018-01-19 03:05 | RADIOLOGY REPORT (SQ) ---
EXAM DESCRIPTION: CT CHEST ANGIOGRAPHY WITHOUT THEN WITH IV CONTRAST COMPLETED DATE/TME: 01/19/2018 01:19 CLINICAL HISTORY: 62 years Male, SOB, h/o PE, eval PE Comparison: None. Technique: IV contrast. Coronal and sagittal reformat. 3d reconstruction. This exam was performed according to our departmental dose-optimization program, which includes automated exposure control, adjustment of the mA and/or kV according to patient size and/or use of iterative reconstruction technique.[facility]: Dose Right [facility]: CareDose [facility]: Dose Right [facility]: Teradose 4D [facility]: Smart [place] LIMITATIONS: Quality of pulmonary arteriogram: Suboptimal. Findings: No pulmonary embolus. No right ventricular strain. Ectatic pulmonary outflow tract. Clear lungs. Hepatic steatosis. 3 cm right adrenal adenoma, no routine follow-up imaging recommended. Coronary arterial calcification. Atherosclerosis. Degenerative disc disease. Inferior neck, axillae, mediastinum, airway, lymphatics, heart, vasculature, upper abdomen, and musculoskeleton appear otherwise unremarkable. Impression: No pulmonary embolus. No acute cardiopulmonary findings.
[2018-01-19 04:14] VITALS: BP 148/81
--- NOTE | 2018-01-19 07:57 | EKG REPORT ---
SEVERITY:- NORMAL ECG - SINUS RHYTHM : Confirmed by: Richard Go MD 19-Jan-2018 07:57:21
== END 2018-01-19 04:52 | disposition home or self-care (01) ==
LOC: ER 20:56
DX: R06.00 Dyspnea, unspecified (principal); I50.9 Heart failure, unspecified; R07.9 Chest pain, unspecified; Z79.01 Long term (current) use of anticoagulants; Z79.899 Other long term (current) drug therapy; Z87.891 Personal history of nicotine dependence; I25.10 Atherosclerotic heart disease of native coronary artery without angina pectoris; I10 Essential (primary) hypertension; J44.9 Chronic obstructive pulmonary disease, unspecified; E11.9 Type 2 diabetes mellitus without complications; E66.01 Morbid (severe) obesity due to excess calories; Z68.44 Body mass index [BMI] 60.0-69.9, adult; Z86.718 Personal history of other venous thrombosis and embolism; Z86.711 Personal history of pulmonary embolism
CPT/HCPCS: 93005; 94640; 99285; 96374; 36415; 82553; 82550; 85025; 80053; 81001; 84484; 83880; 71045; 71275; 93010; J3490; A9270

== ENCOUNTER 2018-04-27 04:16 | Emergency (ER) | payer MEDICARE, MEDICAID ==
[2018-04-27] MEDS ORDERED: ASPIRIN 81 MG TABLET, CHEWABLE PO ONE (04:44)
[2018-04-27] MEDS ORDERED: ALBUTEROL SULFATE 0.083% NEB 2.5 MG/3 ML AMPUL NEB ONE (04:55)
[2018-04-27 05:00] LABS: ABSOLUTE BASOPHILS # (AUTO) 0.1 10^3/uL (0.0-0.2); ABSOLUTE EOSINOPHILS # (AUTO) 0.2 10^3/uL (0.0-0.6); ABSOLUTE LYMPHOCYTES (AUTO) 1.7 10^3/uL (0.5-4.7); ABSOLUTE MONOCYTES (AUTO) 0.7 10^3/uL (0.1-1.4); ABSOLUTE NEUT (AUTO) 6.6 10^3/uL (1.7-8.2); BASOPHILS % (AUTO) 0.6 % (0-2); HEMATOCRIT 40.3 % (37.9-51.0); HEMOGLOBIN 13.7 g/dL (13.5-17.0); LYMPHOCYTES % (AUTO) 18.9 % (13-45); MEAN CORPUSCULAR HEMOGLOBIN 29.1 pg (27.0-33.4); MEAN CORPUSCULAR HGB CONC 34.1 g/dL (32.0-36.0); MEAN CORPUSCULAR VOLUME 85 fl (80-97); MONOCYTES % (AUTO) 7.4 % (3-13); PLATELET COUNT 257 10^3/uL (150-450); RED BLOOD COUNT 4.71 10^6/uL (4.35-5.55); RED CELL DISTRIBUTION WIDTH 15.5 % (11.5-14.0); SEGMENTED NEUTROPHILS % (AUTO) 71.1 % (42-78); TOTAL CELLS COUNTED % (AUTO) 100 %; WHITE BLOOD COUNT 9.2 10^3/uL (4.0-10.5)
[2018-04-27 05:06] LABS: INTERNATIONAL RATION (INR) 1.01; PROTHROMBIN TIME 13.8 SEC (11.4-15.4)
[2018-04-27 05:14] LABS: VENOUS BLOOD BASE EXCESS 1.4 mmol/L; VENOUS BLOOD HCO3 26.1 mmol/L (20-32); VENOUS BLOOD PCO2 41.3 mmHg (35-63); VENOUS BLOOD PH 7.42 (7.30-7.42)
[2018-04-27 05:19] LABS: ALANINE AMINOTRANSFERASE 35 U/L (21-72); ALBUMIN 4.4 g/dL (3.5-5.0); ALKALINE PHOSPHATASE 90 U/L (38-126); ANION GAP 10 (5-19); ASPARTATE AMINO TRANSFERASE 24 U/L (17-59); BILIRUBIN,DIRECT 0.3 mg/dL (0.0-0.4); BILIRUBIN,TOTAL 0.6 mg/dL (0.2-1.3); BLOOD UREA NITROGEN 13 mg/dL (7-20); CALCIUM 9.8 mg/dL (8.4-10.2); CARBON DIOXIDE 29 mmol/L (22-30); CHLORIDE 100 mmol/L (98-107); CREATINE KINASE 65 U/L (55-170); GLUCOSE 150 mg/dL (75-110); POTASSIUM 3.9 mmol/L (3.6-5.0); SODIUM 138.9 mmol/L (137-145); TOTAL PROTEIN 7.6 g/dL (6.3-8.2)
[2018-04-27 05:26] LABS: CREATINE KINASE MB 0.55 ng/mL (<4.55); NT PRO BNP 208 pg/mL (5-900)
[2018-04-27 05:49] LABS: TROPONIN I < 0.012 ng/mL
[2018-04-27 05:53] LABS: APPEARANCE,URINE CLEAR; BILIRUBIN,URINE NEGATIVE (NEGATIVE); COLOR,URINE YELLOW; GLUCOSE, URINE NEGATIVE (NEGATIVE); KETONES,URINE NEGATIVE (NEGATIVE); LEUKOCYTE ESTERASE,URINE NEGATIVE (NEGATIVE); NITRITE,URINE NEGATIVE (NEGATIVE); PROTEIN,URINE NEGATIVE (NEGATIVE); URINE SPECIFIC GRAVITY 1.006; UROBILINOGEN,URINE NEGATIVE mg/dL (<2.0)
--- NOTE | 2018-04-27 05:59 | RADIOLOGY REPORT (SQ) ---
EXAM DESCRIPTION: XR CHEST 1 VIEW COMPLETED DATE/TME: 04/27/2018 04:44 CLINICAL HISTORY: 62 years Male, CP COMPARISON: January 30, 2018. CTA, January 19, 2018. NUMBER OF VIEWS/TECHNIQUE: 1/AP FINDINGS: Increased lung volume, prominent interstitium, mildly enlarged cardiac silhouette, atherosclerosis, and cervical spinal hardware. IMPRESSION: Mild cardiac enlargement.
--- NOTE | 2018-04-27 06:39 | ER Document Report ---
ED General - General TRAVEL OUTSIDE OF THE [place] IN LAST 30 DAYS: No <HEIDY SMITH - Last Filed: 04/27/18 07:07> <MARTÍN PEREZ - Last Filed: 04/27/18 07:44> - General Chief Complaint: Chest Pain > 30 Stated Complaint: CHEST PAIN Time Seen by Provider: 04/27/18 04:21 Primary Care Provider: YOSI HIGHTOWER MD [Primary Care Provider] - Follow up as needed Notes: Patient is a 62-year-old male presents to the emergency department via EMS chief complaint chest heaviness, forehead pressure and respiratory distress. Patient states around 1800 hrs. last evening he developed a pressure in his forehead and a heaviness in the center of his chest. Patient states at that time he realized that he was more short of breath. Patient states he was walking around his house. Patient states around 3:00 in the morning he checked his blood pressure and it was 170/75 which is why he and inevitably called 911. EMS gave the patient 324 mg of aspirin and 4 sublingual nitroglycerin. Patient states that has not helped the pressure in his chest at all. States he feels as though it is hard to take a deep breath. Patient is admitting to a generalized cough and congestion for the last couple of days, denying fever. Patient is morbidly obese at 195 kg Past medical history: Congestive heart failure, hypertension, diabetes, COPD Medications: Metolazone, Bumex, hydralazine, clonidine, albuterol, Symbicort Allergies: Codeine, penicillin (HEIDY SMITH) - Related Data Allergies/Adverse Reactions: benztropine [From Cogentin] Allergy (Verified 12/07/17 19:42) codeine [Codeine] Allergy (Verified 12/07/17 19:42) Penicillins Allergy (Verified 12/07/17 19:42) Past Medical History - General Information source: Patient - Social History Smoking Status: Unknown if Ever Smoked Family History: Reviewed & Not Pertinent Patient has suicidal ideation: No Patient has homicidal ideation: No - Past Medical History Cardiac Medical History: Reports: Hx Congestive Heart Failure, Hx Coronary Artery Disease, Hx DVT, Hx Hypercholesterolemia, Hx Hypertension, Hx Pulmonary Embolism Denies: Hx Atrial Fibrillation, Hx Heart Attack, Hx Peripheral Vascular Disease, Hx Heart Murmur Pulmonary Medical History: Reports: Hx Asthma, Hx COPD, Hx Pneumonia, Hx Sleep Apnea Denies: Hx Bronchitis, Hx Respiratory Failure, Hx Tuberculosis Neurological Medical History: Denies: Hx Cerebrovascular Accident, Hx Seizures Endocrine Medical History: Reports: Hx Diabetes Mellitus Type 2. Denies: Hx Gr aves' Disease, Hx Hyperthyroidism, Hx Hypothyroidism Renal/ Medical History: Denies: Hx Peritoneal Dialysis Malignancy Medical History: Denies Hx Leukemia, Denies Hx Lung Cancer GI Medical History: Reports: Hx Hiatal Hernia. Denies: Hx Crohn's Disease, Hx Gastroesophageal Reflux Disease, Hx Irritable Bowel, Hx Liver Failure, Hx Pancreatitis, Hx Ulcer Musculoskeletal Medical History: Denies Hx Arthritis, Denies Hx Fibromyalgia, Denies Hx Muscular Dystrophy Psychiatric Medical History: Reports: Hx Anxiety, Hx Depression, Hx Post Traumatic Stress Disorder, Hx Schizophrenia Denies: Hx Bipolar Disorder Traumatic Medical History: Reports: Hx Fractures Infectious Medical History: Denies: Hx HIV Past Surgical History: Reports: Hx Abdominal Surgery - hernia repair, Hx Cardiac Catheterization - 30% blockage, Hx Genitourinary Surgery - VASECTOMY, Hx Herniorrhaphy, Hx Oral Surgery - TOOTH EXTRACTION, Hx Orthopedic Surgery - PLATE SCREWS DISC AND BONE GRAFT: NECK, Hx Tonsillectomy. Denies: Hx Appendectomy, Hx Bowel Surgery, Hx Cholecystectomy, Hx Colostomy, Hx Coronary Artery Bypass Graft, Hx Gastric Bypass Surgery, Hx Pacemaker - Immunizations Hx Diphtheria, Pertussis, Tetanus Vaccination: No Hx Pneumococcal Vaccination: 04/07/09 <HEIDY SMITH - Last Filed: 04/27/18 07:07> Review of Systems - Review of Systems Constitutional: See HPI EENT: See HPI Cardiovascular: See HPI Respiratory: See HPI Gastrointestinal: No symptoms reported Genitourinary: No symptoms reported Male Genitourinary: No symptoms reported Musculoskeletal: No symptoms reported Skin: No symptoms reported Hematologic/Lymphatic: No symptoms reported Neurological/Psychological: See HPI <HEIDY SMITH - Last Filed: 04/27/18 07:07> Physical Exam <HEIDY SMITH - Last Filed: 04/27/18 07:07> - Vital signs Vitals: Temp Resp Pulse Ox 97.6 F 22 H 100 04/27/18 04:26 04/27/18 04:26 04/27/18 04:26 - Notes Notes: GENERAL: Morbidly obese alert, interacts well. Tachypneic HEAD: Normocephalic, atraumatic. No frontal or maxillary sinus tenderness EYES: Pupils equal, round, and reactive to light. Extraocular movements intact. ENT: Oral mucosa moist, tongue midline. Nares patent, TM's intact, nonerythematous, nonbulging bilaterally. Pharynx nonerythematous, no palatal petechiae or exudate noted NECK: Full range of motion. Supple. Trachea midline. LUNGS: Diminished to auscultation bilaterally, no discernible wheezes, rales, or rhonchi. Tachypneic HEART: Regular rate and rhythm. No murmur ABDOMEN: Obese soft, non-tender. Non-distended. Bowel sounds present in all 4 quadrants. EXTREMITIES: Moves all 4 extremities spontaneously. Nonpitting edema noted to bilateral calves, normal radial and dorsalis pedis pulses bilaterally. No cyanosis. BACK: no cervical, thoracic, lumbar midline tenderness. No saddle anesthesia, normal distal neurovascular exam. NEUROLOGICAL: Alert and oriented x3. Normal speech. cranial nerves II through XII grossly intact PSYCH: Normal affect, normal mood. SKIN: Warm, dry, normal turgor. No rashes or lesions noted. (HEIDY SMITH) Course - Laboratory Result Diagrams: 04/27/18 04:45 04/27/18 04:45 <HEIDY SMITH - Last Filed: 04/27/18 07:07> - Laboratory Result Diagrams: 04/27/18 04:45 04/27/18 04:45 <MARTÍN PEREZ - Last Filed: 04/27/18 07:44> - Re-evaluation Re-evalutation: 04/27/18 06:33 Upon initial examination patient is lying supine in lot. He does appear to be tachypneic and the excess abdominal weight does appear to be pressing on his chest. Patient states he is unable to sit with his legs elevated due to a previous back injury. States he can sit on the side of the bed if needed but has to lay flat if he is in a hospital bed. Discussed with patient that he appears to be tachypneic while laying flat and he states it is harder to breathe. Patient was sat on the edge of the bed. Pulse ox is 98% but patient does continue to appear tachypneic. Patient states he typically uses BiPAP at night or when he lays flat. Patient is requesting to lay flat again due to his chronic back pain. Discussed placing the patient on BiPAP if he must lay flat in the emergency room. Patient agrees. Patient was given albuterol treatments and placed on BiPAP. After reassessment of the patient's lung sounds do appear to be less diminished in all roper. Patient's chest x-ray reveals no signs of pneumonia, pneumothorax, rib fracture. Patient states he overall feels better after albuterol treatments. Patient is now complaining of generalized pressure And his entire head and in lateral aspects bilaterally in his neck. Patient states "it feels like when my carotids were blocked." In attempting to ask the patient about his history he states that he had "carotid Roto-Rooter" but is unable to tell me when or where. At this time patient is denying any chest pain/pressure/heaviness. States after albuterol treatments his respiratory distress has decreased. His only complaint at this time is generalized head pressure "all over" and pressure on bilateral lateral neck. Discussed case with Dr. Calderón who recommends CTA head and neck. EKG shows sinus rhythm at a rate of 70, QTc 458, no ST segment elevations or depressions noted. 04/27/18 06:50 Patient's labs show no signs of leukocytosis, no signs of anemia, no signs of electrolyte abnormalities, patient's venous blood gas is within normal limits. Patient's urine shows no signs of infection. Patient continues to states he no longer has any chest tightness after breathing treatments and states that his breathing is better overall. (VIRGIE SMITH) 04/27/18 07:43 CTA head/neck unremarkable. Vitals acceptable Pt has no new concerns or complaints and is feeling well. Pt stable for discharge. (MARTÍN PEREZ) - Vital Signs Vital signs: Temp Pulse Resp BP Pulse Ox 97.6 F 61 20 150/75 H 95 04/27/18 07:34 04/27/18 07:34 04/27/18 07:34 04/27/18 07:34 04/27/18 07:34 - Laboratory Laboratory results interpreted by me: 04/27/18 04/27/18 04/27/18 04:45 04:45 05:05 RDW 15.5 H Glucose 150 H Urine Blood MODERATE H Discharge <HEIDY SMITH - Last Filed: 04/27/18 07:07> <CHRISMARTÍN KAPOOR - Last Filed: 04/27/18 07:44> - Discharge Clinical Impression: Shortness of breath, Morbid obesity with BMI of 50.0-59.9, adult, AUTUMN (obstructive sleep apnea), Tachypnea Condition: Stable Disposition: HOME, SELF-CARE Instructions: Sinusitis ([facility]), Upper Respiratory Illness ([facility]) Additional Instructions: As we discussed you have been seen and treated in the emergency department for your generalized shortness of breath, and chest pressure. Your labs revealed no signs of abnormalities. Your chest x-ray reveals no signs of pneumonia. You should use [id number] Tylenol Motrin for your generalized headaches and take prescription nasal sprays for your sinus congestion. Please also take [id number] Coricidin HBP. It is a cold medicines specifically for people with high blood pressure like yourself. Please follow-up with your primary care provider in the next 24-48 hours. Please return to the emergency room for any other concerning symptoms. Prescriptions: Mometasone Furoate [Nasonex] 2 spray NS Q12 #1 spray.pump Referrals: YOSI HIGHTOWER MD [Primary Care Provider] - Follow up as needed
[2018-04-27] MEDS ORDERED: ACETAMINOPHEN 325 MG TABLET PO ONE (06:41)
--- NOTE | 2018-04-27 07:03 | EKG REPORT ---
SEVERITY:- NORMAL ECG - SINUS RHYTHM : Confirmed by: Ying Rubi 27-Apr-2018 07:02:40
--- NOTE | 2018-04-27 07:14 | RADIOLOGY REPORT (SQ) ---
EXAM DESCRIPTION: CT NECK ANGIOGRAPHY WITHOUT THEN WITH IV CONTRAST, CT HEAD ANGIOGRAPHY WITHOUT THEN WITH IV CONTRAST COMPLETED DATE/TME: 04/27/2018 04:55 CLINICAL HISTORY: 62 years Male, headache, pressure Comparison: February 15, 2017. Technique: IV contrast. Coronal and sagittal reformat. 3d reconstruction. This exam was performed according to our departmental dose-optimization program, which includes automated exposure control, adjustment of the mA and/or kV according to patient size and/or use of iterative reconstruction technique. [facility]: Dose Right [facility]: CareDose [facility]: Dose Right [facility]: Teradose 4D [facility]: VoloMetrix LIMITATIONS: None Findings: CTA, head: Intact [place]. Diminutive right A1 anterior cerebral artery segmental variant. No aneurysm. No occlusion. No enhancement abnormality. CTA, neck: Intact carotid and vertebral arterial system. Atherosclerosis includes mural calcification and tortuosity of the right vertebral artery and basilar artery. No internal carotid arterial stenosis/occlusion based on NASCET (or similar) criteria.No vasculitides. CT head without contrast: Moderate white matter microangiopathy, mild parenchymal volume loss, atherosclerosis. No mass, mass effect, or midline shift. No hemorrhage or infarct. Minimal right inferior maxillary mucosal thickening. Else, intact cranium. Other: Coronary arterial calcification. Mild bilateral cervical and buccal lymphadenopathy. Atherosclerotic vascular disease. Anterior C6-C7 hardware fusion. Impression: No acute findings.
--- NOTE | 2018-04-27 07:14 | RADIOLOGY REPORT (SQ) ---
EXAM DESCRIPTION: CT NECK ANGIOGRAPHY WITHOUT THEN WITH IV CONTRAST, CT HEAD ANGIOGRAPHY WITHOUT THEN WITH IV CONTRAST COMPLETED DATE/TME: 04/27/2018 04:55 CLINICAL HISTORY: 62 years Male, headache, pressure Comparison: February 15, 2017. Technique: IV contrast. Coronal and sagittal reformat. 3d reconstruction. This exam was performed according to our departmental dose-optimization program, which includes automated exposure control, adjustment of the mA and/or kV according to patient size and/or use of iterative reconstruction technique. [facility]: Dose Right [facility]: CareDose [facility]: Dose Right [facility]: Teradose 4D [facility]: Enpirion LIMITATIONS: None Findings: CTA, head: Intact [place]. Diminutive right A1 anterior cerebral artery segmental variant. No aneurysm. No occlusion. No enhancement abnormality. CTA, neck: Intact carotid and vertebral arterial system. Atherosclerosis includes mural calcification and tortuosity of the right vertebral artery and basilar artery. No internal carotid arterial stenosis/occlusion based on NASCET (or similar) criteria.No vasculitides. CT head without contrast: Moderate white matter microangiopathy, mild parenchymal volume loss, atherosclerosis. No mass, mass effect, or midline shift. No hemorrhage or infarct. Minimal right inferior maxillary mucosal thickening. Else, intact cranium. Other: Coronary arterial calcification. Mild bilateral cervical and buccal lymphadenopathy. Atherosclerotic vascular disease. Anterior C6-C7 hardware fusion. Impression: No acute findings.
[2018-04-27 07:35] VITALS: BP 150/75
== END 2018-04-27 07:55 | disposition home or self-care (01) ==
LOC: ER 04:16
DX: R06.82 Tachypnea, not elsewhere classified (principal); G47.33 Obstructive sleep apnea (adult) (pediatric); E66.01 Morbid (severe) obesity due to excess calories; Z68.43 Body mass index [BMI] 50.0-59.9, adult; R07.9 Chest pain, unspecified; I50.9 Heart failure, unspecified; I11.0 Hypertensive heart disease with heart failure; J44.9 Chronic obstructive pulmonary disease, unspecified; Z79.899 Other long term (current) drug therapy
CPT/HCPCS: 93005; 94640; 99285; 36415; 82553; 82550; 85025; 85610; 80053; 81001; 84484; 82803; 83880; 71045; 70496; 70498; 93010; 94660; A9270 ×2

== ENCOUNTER → 2018-05-04 | Outpatient (CLI) | payer MEDICARE, MEDICAID ==
[2018-05-04 16:29] LABS: ABSOLUTE BASOPHILS # (AUTO) 0.1 10^3/uL (0.0-0.2); ABSOLUTE EOSINOPHILS # (AUTO) 0.1 10^3/uL (0.0-0.6); ABSOLUTE LYMPHOCYTES (AUTO) 1.3 10^3/uL (0.5-4.7); ABSOLUTE MONOCYTES (AUTO) 0.7 10^3/uL (0.1-1.4); ABSOLUTE NEUT (AUTO) 5.5 10^3/uL (1.7-8.2); BASOPHILS % (AUTO) 0.7 % (0-2); EOSINOPHILS % (AUTO) 1.9 % (0-6); HEMATOCRIT 40.9 % (37.9-51.0); HEMOGLOBIN 14.3 g/dL (13.5-17.0); MEAN CORPUSCULAR HEMOGLOBIN 29.3 pg (27.0-33.4); MEAN CORPUSCULAR HGB CONC 35.1 g/dL (32.0-36.0); MEAN CORPUSCULAR VOLUME 83 fl (80-97); MONOCYTES % (AUTO) 8.9 % (3-13); PLATELET COUNT 274 10^3/uL (150-450); RED CELL DISTRIBUTION WIDTH 15.3 % (11.5-14.0); SEGMENTED NEUTROPHILS % (AUTO) 71.5 % (42-78); TOTAL CELLS COUNTED % (AUTO) 100 %; WHITE BLOOD COUNT 7.7 10^3/uL (4.0-10.5)
[2018-05-04 16:40] LABS: ALANINE AMINOTRANSFERASE 38 U/L (21-72); ALBUMIN 4.6 g/dL (3.5-5.0); ALKALINE PHOSPHATASE 94 U/L (38-126); ANION GAP 10 (5-19); ASPARTATE AMINO TRANSFERASE 27 U/L (17-59); BILIRUBIN,DIRECT 0.2 mg/dL (0.0-0.4); BILIRUBIN,TOTAL 0.5 mg/dL (0.2-1.3); BLOOD UREA NITROGEN 26 mg/dL (7-20); CALCIUM 9.8 mg/dL (8.4-10.2); CARBON DIOXIDE 31 mmol/L (22-30); CHLORIDE 97 mmol/L (98-107); GLUCOSE 188 mg/dL (75-110); POTASSIUM 3.8 mmol/L (3.6-5.0); SODIUM 137.9 mmol/L (137-145); TOTAL PROTEIN 7.7 g/dL (6.3-8.2)
== END ==
LOC: OD 14:59
PROVIDERS: ATTEND Internal Medicine Nephrology
DX: I10 Essential (primary) hypertension (principal); E78.2 Mixed hyperlipidemia; E11.9 Type 2 diabetes mellitus without complications; D64.9 Anemia, unspecified
CPT/HCPCS: 36415; 80053; 83036; 85025

== ENCOUNTER 2018-06-05 16:09 | Emergency (ER) | payer MEDICARE, MEDICAID ==
--- NOTE | 2018-06-05 16:47 | ER Document Report ---
ED Medical Screen (RME) - General Chief Complaint: Shortness Of Breath Stated Complaint: DIFFICULTY BREATHING Time Seen by Provider: 06/05/18 16:41 Primary Care Provider: YOSI HIGHTOWER MD [Primary Care Provider] - Follow up as needed Notes: Patient says he has been having difficulty breathing since about 1:30 PM today. He had done some light activity prior to the onset of his symptoms. He is noticed swelling of his ankles has increased during this past week. He has a history of congestive heart failure. Also has a history of pulmonary embolus in 2004 and another one in 2006. He was on Coumadin for many years but switched to Eliquis about a year or so ago. History of COPD. Denies any chest pains. Denies fever. TRAVEL OUTSIDE OF THE [place] IN LAST 30 DAYS: No - Related Data Allergies/Adverse Reactions: benztropine [From Cogentin] Allergy (Verified 12/07/17 19:42) codeine [Codeine] Allergy (Verified 12/07/17 19:42) Penicillins Allergy (Verified 12/07/17 19:42) Past Medical History - Social History Chew tobacco use (# tins/day): No Frequency of alcohol use: None Drug Abuse: None - Past Medical History Cardiac Medical History: Reports: Hx Congestive Heart Failure, Hx Coronary Artery Disease, Hx DVT, Hx Hypercholesterolemia, Hx Hypertension, Hx Pulmonary Embolism Denies: Hx Atrial Fibrillation, Hx Heart Attack, Hx Peripheral Vascular Disease, Hx Heart Murmur Pulmonary Medical History: Reports: Hx Asthma, Hx COPD, Hx Pneumonia, Hx Sleep Apnea Denies: Hx Bronchitis, Hx Respiratory Failure, Hx Tuberculosis Neurological Medical History: Denies: Hx Cerebrovascular Accident, Hx Seizures Endocrine Medical History: Reports: Hx Diabetes Mellitus Type 2. Denies: Hx Graves' Disease, Hx Hyperthyroidism, Hx Hypothyroidism Renal/ Medical History: Denies: Hx Peritoneal Dialysis Malignancy Medical History: Denies Hx Leukemia, Denies Hx Lung Cancer GI Medical History: Reports: Hx Hiatal Hernia. Denies: Hx Crohn's Disease, Hx Gastroesophageal Reflux Disease, Hx Irritable Bowel, Hx Liver Failure, Hx Pancreatitis, Hx Ulcer Musculoskeltal Medical History: Denies Hx Arthritis, Denies Hx Fibromyalgia, Denies Hx Muscular Dystrophy Psychiatric Medical History: Reports: Hx Anxiety, Hx Depression, Hx Post Traumatic Stress Disorder, Hx Schizophrenia Denies: Hx Bipolar Disorder Traumatic Medical History: Reports: Hx Fractures Infectious Medical History: Denies: Hx HIV Past Surgical History: Reports: Hx Abdominal Surgery - hernia repair, Hx Cardiac Catheterization - 30% blockage, Hx Genitourinary Surgery - VASECTOMY, Hx Herniorrhaphy, Hx Oral Surgery - TOOTH EXTRACTION, Hx Orthopedic Surgery - PLATE SCREWS DISC AND BONE GRAFT: NECK, Hx Tonsillectomy. Denies: Hx Appendectomy, Hx Bowel Surgery, Hx Cholecystectomy, Hx Colostomy, Hx Coronary Artery Bypass Graft, Hx Gastric Bypass Surgery, Hx Pacemaker - Immunizations Hx Diphtheria, Pertussis, Tetanus Vaccination: No Physical Exam - Vital signs Vitals: Temp Pulse Resp BP Pulse Ox 99.0 F 83 24 H 167/85 H 96 06/05/18 16:17 06/05/18 16:17 06/05/18 16:17 06/05/18 16:17 06/05/18 16:17 Course - Vital Signs Vital signs: Temp Pulse Resp BP Pulse Ox 99.0 F 83 24 H 167/85 H 96 06/05/18 16:17 06/05/18 16:17 06/05/18 16:17 06/05/18 16:17 06/05/18 16:17 Doctor's Discharge - Discharge Referrals: YOSI HIGHTOWER MD [Primary Care Provider] - Follow up as needed
[2018-06-05 17:11] LABS: ABSOLUTE BASOPHILS # (AUTO) 0.1 10^3/uL (0.0-0.2); ABSOLUTE EOSINOPHILS # (AUTO) 0.2 10^3/uL (0.0-0.6); ABSOLUTE LYMPHOCYTES (AUTO) 1.1 10^3/uL (0.5-4.7); ABSOLUTE MONOCYTES (AUTO) 0.6 10^3/uL (0.1-1.4); ABSOLUTE NEUT (AUTO) 8.1 10^3/uL (1.7-8.2); BASOPHILS % (AUTO) 1.2 % (0-2); EOSINOPHILS % (AUTO) 2.2 % (0-6); HEMATOCRIT 41.7 % (37.9-51.0); HEMOGLOBIN 14.4 g/dL (13.5-17.0); LYMPHOCYTES % (AUTO) 10.9 % (13-45); MEAN CORPUSCULAR HEMOGLOBIN 29.2 pg (27.0-33.4); MEAN CORPUSCULAR HGB CONC 34.5 g/dL (32.0-36.0); MEAN CORPUSCULAR VOLUME 85 fl (80-97); MONOCYTES % (AUTO) 6.2 % (3-13); PLATELET COUNT 248 10^3/uL (150-450); RED BLOOD COUNT 4.92 10^6/uL (4.35-5.55); RED CELL DISTRIBUTION WIDTH 15.2 % (11.5-14.0); SEGMENTED NEUTROPHILS % (AUTO) 79.5 % (42-78); TOTAL CELLS COUNTED % (AUTO) 100 %; WHITE BLOOD COUNT 10.2 10^3/uL (4.0-10.5)
[2018-06-05 17:16] LABS: APPEARANCE,URINE CLEAR; BILIRUBIN,URINE NEGATIVE (NEGATIVE); COLOR,URINE STRAW; GLUCOSE, URINE NEGATIVE (NEGATIVE); KETONES,URINE NEGATIVE (NEGATIVE); LEUKOCYTE ESTERASE,URINE NEGATIVE (NEGATIVE); NITRITE,URINE NEGATIVE (NEGATIVE); PROTEIN,URINE NEGATIVE (NEGATIVE); URINE SPECIFIC GRAVITY 1.006; UROBILINOGEN,URINE NEGATIVE mg/dL (<2.0)
[2018-06-05 17:19] LABS: INTERNATIONAL RATION (INR) 0.93; PROTHROMBIN TIME 12.9 SEC (11.4-15.4)
[2018-06-05 17:32] LABS: ALANINE AMINOTRANSFERASE 35 U/L (21-72); ALBUMIN 4.4 g/dL (3.5-5.0); ALKALINE PHOSPHATASE 99 U/L (38-126); ANION GAP 12 (5-19); ASPARTATE AMINO TRANSFERASE 23 U/L (17-59); BILIRUBIN,DIRECT 0.2 mg/dL (0.0-0.4); BILIRUBIN,TOTAL 0.4 mg/dL (0.2-1.3); BLOOD UREA NITROGEN 24 mg/dL (7-20); CALCIUM 10.2 mg/dL (8.4-10.2); CARBON DIOXIDE 31 mmol/L (22-30); CHLORIDE 98 mmol/L (98-107); GLUCOSE 206 mg/dL (75-110); SODIUM 140.9 mmol/L (137-145); TOTAL PROTEIN 7.8 g/dL (6.3-8.2)
--- NOTE | 2018-06-05 17:44 | RADIOLOGY REPORT (SQ) ---
EXAM DESCRIPTION: CHEST 2 VIEWS COMPLETED DATE/TIME: 06/05/2018 5:18 pm REASON FOR STUDY: Difficulty breathing and shortness of breath COMPARISON: 04/27/2018 TECHNIQUE: Frontal and lateral radiographic views of the chest acquired. NUMBER OF VIEWS: Two view. LIMITATIONS: None. FINDINGS: LUNGS AND PLEURA: No pneumothorax. No consolidation or pleural effusion. MEDIASTINUM AND HILAR STRUCTURES: Stable. HEART AND VASCULAR STRUCTURES: Stable. BONES: No acute findings. HARDWARE: None in the chest. OTHER: No other significant finding. IMPRESSION: NO ACUTE FINDINGS. TECHNICAL DOCUMENTATION: JOB ID: [id number] All Rights Reserved Reading location - IP/workstation name: [email or web address]
[2018-06-05 17:56] LABS: NT PRO BNP 212 pg/mL (5-900)
[2018-06-05 18:08] LABS: TROPONIN I < 0.012 ng/mL
[2018-06-05] MEDS ORDERED: IPRATROPIUM/ALBUTEROL 0.5-2.5 MG/3 ML AMPUL NEB ONE (20:01)
--- NOTE | 2018-06-05 20:03 | ER Document Report ---
ED Respiratory Problem - General Chief Complaint: Shortness Of Breath Stated Complaint: DIFFICULTY BREATHING Time Seen by Provider: 06/05/18 16:41 Primary Care Provider: YOSI HIGHTOWER MD [Primary Care Provider] - Follow up as needed Notes: Patient is a 62-year-old male that comes to the patient shortness of breath. He states that he has had difficulty getting his breath ever since he cleaned out of the freezer earlier this evening. It is worse with exertion. He denies any pain including chest pain. Denies fever or chills. He does have some increased lower extremity swelling bilaterally, he does have a history of CHF, he is on Bumex. He does have a history of COPD well, uses inhalers, does not wear home oxygen. He also has a history of pulmonary embolism, he is currently on Eliquis. He reports compliance with all his medications. He does admit to increased salt intake recently. TRAVEL OUTSIDE OF THE [place] IN LAST 30 DAYS: No - Related Data Allergies/Adverse Reactions: benztropine [From Cogentin] Allergy (Verified 12/07/17 19:42) codeine [Codeine] Allergy (Verified 12/07/17 19:42) Penicillins Allergy (Verified 12/07/17 19:42) Past Medical History - General Information source: Patient - Social History Smoking Status: Former Smoker Chew tobacco use (# tins/day): No Frequency of alcohol use: None Drug Abuse: None Lives with: Family Family History: Reviewed & Not Pertinent Patient has suicidal ideation: No Patient has homicidal ideation: No - Past Medical History Cardiac Medical History: Reports: Hx Congestive Heart Failure, Hx Coronary Artery Disease, Hx DVT, Hx Hypercholesterolemia, Hx Hypertension, Hx Pulmonary Embolism Denies: Hx Atrial Fibrillation, Hx Heart Attack, Hx Peripheral Vascular Disease, Hx Heart Murmur Pulmonary Medical History: Reports: Hx Asthma, Hx COPD, Hx Pneumonia, Hx Sleep Apnea Denies: Hx Bronchitis, Hx Respiratory Failure, Hx Tuberculosis Neurological Medical History: Denies: Hx Cerebrovascular Accident, Hx Seizures Endocrine Medical History: Reports: Hx Diabetes Mellitus Type 2. Denies: Hx Graves' Disease, Hx Hyperthyroidism, Hx Hypothyroidism Renal/ Medical History: Denies: Hx Peritoneal Dialysis Malignancy Medical History: Denies Hx Leukemia, Denies Hx Lung Cancer GI Medical History: Reports: Hx Hiatal Hernia. Denies: Hx Crohn's Disease, Hx Gastroesophageal Reflux Disease, Hx Irritable Bowel, Hx Liver Failure, Hx Pancreatitis, Hx Ulcer Musculoskeletal Medical History: Denies Hx Arthritis, Denies Hx Fibromyalgia, Denies Hx Muscular Dystrophy Psychiatric Medical History: Reports: Hx Anxiety, Hx Depression, Hx Post Traumatic Stress Disorder, Hx Schizophrenia Denies: Hx Bipolar Disorder Traumatic Medical History: Reports: Hx Fractures Infectious Medical History: Denies: Hx HIV Past Surgical History: Reports: Hx Abdominal Surgery - hernia repair, Hx Cardiac Catheterization - 30% blockage, Hx Genitourinary Surgery - VASECTOMY, Hx Herniorrhaphy, Hx Oral Surgery - TOOTH EXTRACTION, Hx Orthopedic Surgery - PLATE SCREWS DISC AND BONE GRAFT: NECK, Hx Tonsillectomy. Denies: Hx Appendectomy, Hx Bowel Surgery, Hx Cholecystectomy, Hx Colostomy, Hx Coronary Artery Bypass Graft, Hx Gastric Bypass Surgery, Hx Pacemaker - Immunizations Hx Diphtheria, Pertussis, Tetanus Vaccination: No Hx Pneumococcal Vaccination: 04/07/09 Review of Systems - Review of Systems Constitutional: No symptoms reported EENT: No symptoms reported Cardiovascular: No symptoms reported Respiratory: See HPI Gastrointestinal: No symptoms reported Genitourinary: No symptoms reported Male Genitourinary: No symptoms reported Musculoskeletal: No symptoms reported Skin: No symptoms reported Hematologic/Lymphatic: No symptoms reported Neurological/Psychological: No symptoms reported Physical Exam - Vital signs Vitals: Temp Pulse Resp BP Pulse Ox 99.0 F 83 24 H 167/85 H 96 06/05/18 16:17 06/05/18 16:17 06/05/18 16:17 06/05/18 16:17 06/05/18 16:17 - Notes Notes: GENERAL: Alert, interacts well. No acute distress. HEAD: Normocephalic, atraumatic. EYES: Pupils equal, round, and reactive to light. Extraocular movements intact. ENT: Oral mucosa moist, tongue midline. Oropharynx unremarkable. Airway patent. Nares patent, no nasal septal hematoma, TM's intact. NECK: Full range of motion. Supple. Trachea midline. LUNGS: Patient does have expiratory wheezes heard throughout. Still hear good lung sounds. No rales or rhonchi noted. Patient speaking in full sentences and is not in distress on my evaluation. HEART: Regular rate and rhythm. No murmur ABDOMEN: Soft, non-tender. Non-distended. Bowel sounds present in all 4 quadrants. GENITOURINARY: Deferred EXTREMITIES: Lower extremity showing 2+ pitting edema bilaterally, skin is woody, no abnormal rhythm or heat, no weeping fluid, normal distal neurovascular exam. Upper extremities unremarkable. BACK: no cervical, thoracic, lumbar midline tenderness. No saddle anesthesia, normal distal neurovascular exam. NEUROLOGICAL: Alert and oriented x3. Normal speech. [cranial nerves II through XII grossly intact]. PSYCH: Normal affect, normal mood. SKIN: Warm, dry, normal turgor. No rashes or lesions noted. Course - Re-evaluation Re-evalutation: Patient is a morbidly obese 62-year-old male with a history of COPD, CHF, and pulmonary embolism. No fever or cough suggesting pneumonia, no chest pain, he is not tachycardic and he is currently on Eliquis, he does have expiratory wheezes on exam. He has no tachypnea, signs of distress, or hypoxia. Chest x- ray unremarkable, BNP is not elevated. Appears to have some right heart failure with swelling of the lower extremities although this could be chronic venous insufficiency. Blood pressure was rechecked and unremarkable. Troponin negative. Remaining workup unremarkable. After 1 DuoNeb treatment the small amount of wheezing completely resolved. Patient was given a dose of IV Bumex after discussion. I did discuss steroids at home for COPD exacerbation but this was declined, I feel this is reasonable given his very mild wheezing on presentation and him having access to treatments at home. Patient ambulates without difficulty or hypoxia. Patient will be discharged with close follow-up instructions and return precautions which were discussed in detail. Patient states satisfaction and agreement with plan. - Vital Signs Vital signs: Temp Pulse Resp BP Pulse Ox 98.1 F 83 16 154/89 H 97 06/05/18 21:02 06/05/18 16:17 06/05/18 21:02 06/05/18 21:02 06/05/18 21:02 - Laboratory Result Diagrams: 06/05/18 16:58 06/05/18 16:58 Laboratory results interpreted by me: 06/05/18 06/05/18 16:58 16:58 RDW 15.2 H Seg Neutrophils % 79.5 H Lymphocytes % 10.9 L Carbon Dioxide 31 H BUN 24 H Glucose 206 H Discharge - Discharge Clinical Impression: Shortness of breath, Bilateral lower extremity edema Condition: Stable Disposition: HOME, SELF-CARE Additional Instructions: Your workup does not show any concerning findings, there is no noted fluid in your lungs, on exam you had some wheezing which went away with the DuoNeb treatment. You have been given a dose of Bumex IV for your lower external swelling. Reduce salt in your diet, elevate your legs, continue current medications, follow-up very closely with your primary care provider. Return if you worsen including return to worsening difficulty breathing, fever, pain in your chest, or any other concerning symptoms. Referrals: YOSI HIGHTOWER MD [Primary Care Provider] - Follow up as needed
[2018-06-05] MEDS ORDERED: BUMETANIDE INJ/PF 1 MG/4 ML SDV IV ONE (20:46)
[2018-06-05 21:07] VITALS: BP 154/89
--- NOTE | 2018-06-05 22:08 | EKG REPORT ---
SEVERITY:- NORMAL ECG - SINUS RHYTHM : Confirmed by: Ying Rubi 05-Jun-2018 22:07:37
== END 2018-06-05 21:15 | disposition home or self-care (01) ==
LOC: ER 16:09
DX: R60.0 Localized edema (principal); R06.02 Shortness of breath; J44.9 Chronic obstructive pulmonary disease, unspecified; Z86.711 Personal history of pulmonary embolism; Z79.01 Long term (current) use of anticoagulants; Z87.891 Personal history of nicotine dependence; I50.9 Heart failure, unspecified; I25.10 Atherosclerotic heart disease of native coronary artery without angina pectoris; I11.0 Hypertensive heart disease with heart failure; E11.9 Type 2 diabetes mellitus without complications
CPT/HCPCS: 93005; 94640; 99285; 96374; 36415; 82553; 85025; 85610; 80053; 81001; 84484; 83880; 71046; 93010; J3490; A9270; J7620

== ENCOUNTER 2018-06-26 08:05 | Day surgery (SDC) | payer MEDICARE, MEDICAID ==
[2018-06-26] MEDS ORDERED: PROPOFOL INJ 200 MG/20 ML VIAL IV ONE ×2 (08:24→10:40)
[2018-06-26 11:24] VITALS: BP 169/82
--- NOTE | 2018-06-26 11:31 | Operative Report ---
Operative Report DATE OF SURGERY: 06/26/18 Operative Report: The risks, benefits and alternatives of the procedure including the risk of bleeding, perforation requiring surgery have been explained to the patient in detail and informed consent has been obtained. The patient is taken back to the endoscopy suite and placed in a left, lateral decubital position. Timeout was called. Propofol medication is administered. A rectal examination is done which did not reveal any masses, tears or fissures. An Olympus videoscope was introduced into the patient's rectum. It is carefully advanced all the way to the cecum. Cecum was identified by the usual anatomical landmarks including the ileocecal valve as well as appendiceal office. Photodocumentation was obtained. Scope was then sequentially pulled back via the various segments of the colon including the ascending colon, hepatic flexure, transverse colon, splenic flexure, descending colon and finally into the rectosigmoid portions of the colon. Retroflexion maneuver was performed. PREOPERATIVE DIAGNOSIS: Personal history of polyp POSTOPERATIVE DIAGNOSIS: Small cecal polyp that was removed via biopsy forceps. Internal hemorrhoids OPERATION: Colonoscopy with biopsy SURGEON: MARYANN RAMIRES ANESTHESIA: LMAC TISSUE REMOVED OR ALTERED: As noted above. COMPLICATIONS: None. ESTIMATED BLOOD LOSS: None. INTRAOPERATIVE FINDINGS: As noted above. PROCEDURE: Patient tolerated the procedure well. No immediate postprocedure comp occasions are noted. Patient discharged in good condition. Discharge date 06/26/2018. Discharge diet: Regular. Discharge activity: Regular. 2-3-week follow-up to discuss findings. 3-5-year surveillance colonoscopy depending on the pathology of the polyp. Patient is instructed call the office or proceed to the emergency room should there be any further proximal questions. We will wait on the pathology.
== END 2018-06-26 11:44 | disposition home or self-care (01) ==
LOC: OROUT 08:05
PROVIDERS: ATTEND Internal Medicine Gastroenterology
DX: Z12.11 Encounter for screening for malignant neoplasm of colon (principal); D12.0 Benign neoplasm of cecum; K64.8 Other hemorrhoids; Z86.010 Personal history of colon polyps; F17.210 Nicotine dependence, cigarettes, uncomplicated; I10 Essential (primary) hypertension; E11.9 Type 2 diabetes mellitus without complications; I25.2 Old myocardial infarction; R01.1 Cardiac murmur, unspecified; E66.01 Morbid (severe) obesity due to excess calories; Z68.43 Body mass index [BMI] 50.0-59.9, adult
CPT/HCPCS: 45380; 82962; 88305 ×2; J2704; 811

== ENCOUNTER 2018-08-11 08:14 | Day surgery (SDC) | payer MEDICARE, MEDICAID ==
[~2018-08-11 08:14] MED LIST: BUPIVACAINE HCL 0.75% INJ/PF (7.5 MG/1 ML) 10 ML SDV OD PRN; CHONDR SU A NA/HYALUR INTRAOC KIT (SURGICARE) ONE; EPINEPHRINE INJ/PF 1 MG/1 ML AMPULE ONE; KETOROLAC TROMETHAMINE 0.45% 4 DROP/0.4 ML DROPERETTE OD PRN; LIDOCAINE 1% INJ-PF (10 MG/ML) 30 ML SDV ONE; LIDOCAINE 4% INJ/PF (40 MG/ML) 5 ML AMPUL OD PRN
[2018-08-11] MEDS: CYCLOPENTOLATE 0.2%/PHENYLEPHRINE 1% OPH SOLN 2 ML OD PRN ×3 (09:05→09:32)
[2018-08-11] MEDS: TROPICAMIDE 1% OPH SOLN 3 ML OD PRN ×3 (09:05→09:32)
[2018-08-11] MEDS: BESIFLOXACIN HCL 0.6% OPH SUSP 5 ML BOTTLE OD PRN ×4 (09:06→10:17)
[2018-08-11] MEDS: TETRACAINE HCL 0.5% OPH SOLN 0.6 ML DROPERETTE OD PRN ×2 (09:07→09:33)
[2018-08-11] MEDS ORDERED: MIDAZOLAM 2 MG/2 ML INJ ONE (09:20)
[2018-08-11] MEDS ORDERED: FENTANYL CITRATE INJ/PF 100 MCG/2 ML AMPUL ONE (09:20)
[2018-08-11] MEDS: DORZOLAMIDE HCL 2%/TIMOLOL MALEAT 0.5% OPH SOLN 10 ML OD PRN ×2 (10:05→10:17)
--- NOTE | 2018-08-11 10:49 | [facility] DISCHARGE SUMMARY E ---
[facility] Discharge Summary NAME: KI DAVIS JR AGE: 62Y ADMITTED: 08/11/2018 DISCHARGED: FINAL DIAGNOSIS: Cataract, right eye. PROCEDURE PERFORMED: Phacoemulsification with posterior chamber intraocular lens, right eye. HOSPITAL COURSE: The patient is a 62-year-old gentleman who underwent uneventful cataract extraction with intraocular lens implant, right eye, on 08/11/2018. He will be discharged to home. He is instructed to resume preoperative medications; to take Tylenol as needed for discomfort; to keep his eye shielded; to use Durezol, Prolensa, and Besivance at 3 p.m. and 8 p.m.; to follow up in my office in 1 day. DICTATING PHYSICIAN: OSCAR ROUSE M.D. [id number] PHY#: [id number] ID: [id number] JOB#: [id number] ACCT: [id number] cc:OSCAR ROUSE M.D. >
--- NOTE | 2018-08-11 10:53 | [facility] OPERATIVE REPORT E ---
[facility] Operative Report NAME: KI DAVIS JR AGE: 62Y DATE OF SURGERY: 08/11/2018 ROOM: PREOPERATIVE DIAGNOSIS: Cataract, right eye. POSTOPERATIVE DIAGNOSIS: Cataract, right eye. PROCEDURE PERFORMED: Phacoemulsification with posterior chamber intraocular lens, right eye. SURGEON: OSCAR ROSUE M.D. ANESTHESIA: Topical with MAC. INDICATIONS FOR SURGERY: Glare and difficulty driving at night. PROCEDURE: The patient was brought to the operating room and placed on the operating table. Topical anesthesia was administered. This consisted of instrument wipe pledgets soaked in a solution of 4% Xylocaine mixed with 0.75% Marcaine in a 1:2 ratio. A 2 x 1 cm pledget was placed in the superior fornix. A 1 x 1 cm pledget was placed in the inferior fornix. The eye was patched shut for 5 minutes. The patch and pledgets were removed. The eye was sterilely prepped and draped in the usual manner. A lid speculum was placed in the eye. A 4-0 black silk suture was placed around the superior and inferior rectus muscles to use as traction. A conjunctival peritomy was made at the 10 o'clock position. Hemostasis was attained with bipolar cautery. A posterior limbal groove was created using a crescent knife and dissected anteriorly towards the cornea. A sharp point blade was used to create a paracentesis site at the 2 o'clock position. A 2.4 mm keratome was used to enter the anterior chamber through the groove. Then 0.5 mL of 1% nonpreserved lidocaine was injected into the anterior chamber. Viscoelastic was injected into the anterior chamber. . An anterior capsulotomy was performed using Utrata forceps in a capsulorrhexis fashion. Hydrodissection and hydrodelineation were performed. Phacoemulsification was performed in a [id number] technique. Total phaco time 41 seconds. Following this, the I/A unit was used to remove residual cortex. Viscoelastic was injected into the capsular bag. Intraocular lens model [id number], 20.5 diopters, serial number [id number] was placed in the capsular bag. The I/A unit was used to remove residual viscoelastic. The wound was seen to be watertight under high and low pressure and no sutures were placed. The 4-0 black silk sutures and lid speculum were removed. The eye was shielded after Besivance drops were placed. The patient tolerated the procedure well and was sent to the recovery room in good condition. A drop of Cosopt was placed in the eye at the end of surgery. DICTATING PHYSICIAN: OSCAR ROUSE M.D. [id number] PHY#: [id number] ID: [id number] JOB#: [id number] ACCT: [id number] cc:OSCAR ROUSE M.D. > MTDD
== END 2018-08-11 11:10 | disposition home or self-care (01) ==
LOC: SC 08:14
PROVIDERS: ATTEND Ophthalmology
DX: H25.813 Combined forms of age-related cataract, bilateral (principal); H35.363 Drusen (degenerative) of macula, bilateral; E11.9 Type 2 diabetes mellitus without complications; G47.30 Sleep apnea, unspecified; E66.01 Morbid (severe) obesity due to excess calories; Z68.43 Body mass index [BMI] 50.0-59.9, adult; Z88.5 Allergy status to narcotic agent; Z88.0 Allergy status to penicillin; Z88.8 Allergy status to other drugs, medicaments and biological substances; Z86.711 Personal history of pulmonary embolism; Z79.82 Long term (current) use of aspirin; Z79.01 Long term (current) use of anticoagulants; Z79.4 Long term (current) use of insulin; Z79.899 Other long term (current) drug therapy; Z79.51 Long term (current) use of inhaled steroids
CPT/HCPCS: 66984; 82962; V2632; J2250; J3490 ×4; A9270; J0171; J3010; 142

== ENCOUNTER 2018-08-17 17:44 | Emergency (ER) | payer MEDICARE, MEDICAID ==
[2018-08-17] MEDS ORDERED: ASPIRIN 81 MG TABLET, CHEWABLE PO ONE (18:13)
--- NOTE | 2018-08-17 18:15 | ER Document Report ---
ED Medical Screen (RME) - General Chief Complaint: Breathing Difficulty Stated Complaint: DIFFICULTY BREATHING Time Seen by Provider: 08/17/18 18:12 Primary Care Provider: YOSI HIGHTOWER MD [Primary Care Provider] - Follow up as needed Mode of Arrival: Wheelchair Information source: Patient Notes: 62-year-old male presented to ED for complaint of extreme shortness of breath hard to get his breath worse when he walks talks or eats. He is a 448 pound male who has a history of pulmonary emboli and is on Eliquis coronary artery disease cholesterol high blood pressure and diabetes. He is a former smoker but does not smoke any or more. He has had a bone graft in his neck. He states he had a heart catheterization and they states he had no blockage in any of his arteries. He states he quit taking all of his blood pressure medications because he had to use a nursing school and he did not need them so he quit taking them. He states he was not recommended by the doctor to stop he decided to stop drinking itself. I have greeted and performed a rapid initial assessment of this patient. A comprehensive ED assessment and evaluation of the patient, analysis of test results and completion of medical decision making process will be conducted by an additional ED providers. Dictation of this chart was performed using voice recognition software; therefore, there may be some unintended grammatical errors. TRAVEL OUTSIDE OF THE [place] IN LAST 30 DAYS: No - Related Data Allergies/Adverse Reactions: benztropine [From Cogentin] Allergy (Severe, Verified 08/17/18 17:53) Anaphylaxis codeine [Codeine] Allergy (Severe, Verified 08/17/18 17:53) HYPERACTIVE Penicillins Allergy (Mild, Verified 08/17/18 17:53) RASH Past Medical History - Social History Chew tobacco use (# tins/day): No Frequency of alcohol use: None Drug Abuse: None - Past Medical History Cardiac Medical History: Reports: Hx Congestive Heart Failure, Hx DVT, Hx Hypercholesterolemia, Hx Hypertension, Hx Pulmonary Embolism Denies: Hx Atrial Fibrillation, Hx Coronary Artery Disease, Hx Heart Attack, Hx Peripheral Vascular Disease, Hx Heart Murmur Pulmonary Medical History: Reports: Hx Asthma, Hx COPD, Hx Pneumonia, Hx Sleep Apnea Denies: Hx Bronchitis, Hx Respiratory Failure, Hx Tuberculosis Neurological Medical History: Denies: Hx Cerebrovascular Accident, Hx Seizures Endocrine Medical History: Reports: Hx Diabetes Mellitus Type 2. Denies: Hx Graves' Disease, Hx Hyperthyroidism, Hx Hypothyroidism Renal/ Medical History: Denies: Hx Peritoneal Dialysis Malignancy Medical History: Denies Hx Leukemia, Denies Hx Lung Cancer GI Medical History: Reports: Hx Hiatal Hernia. Denies: Hx Crohn's Disease, Hx Gastroesophageal Reflux Disease, Hx Hepatitis, Hx Irritable Bowel, Hx Liver Failure, Hx Pancreatitis, Hx Ulcer Musculoskeltal Medical History: Reports Hx Arthritis, Denies Hx Fibromyalgia, Denies Hx Muscular Dystrophy, Denies Hx Systemic Lupus Erythematosus Psychiatric Medical History: Reports: Hx Anxiety, Hx Depression, Hx Post Traumatic Stress Disorder, Hx Schizophrenia Denies: Hx Bipolar Disorder Traumatic Medical History: Reports: Hx Fractures Infectious Medical History: Denies: Hx Hepatitis, Hx HIV Past Surgical History: Reports: Hx Abdominal Surgery - hernia repair, Hx Cardiac Catheterization - 30% blockage, Hx Genitourinary Surgery - VASECTOMY, Hx Herniorrhaphy, Hx Oral Surgery - TOOTH EXTRACTION, Hx Orthopedic Surgery - PLATE SCREWS DISC AND BONE GRAFT: NECK, Hx Tonsillectomy. Denies: Hx Appendectomy, Hx Bowel Surgery, Hx Cholecystectomy, Hx Colostomy, Hx Coronary Artery Bypass Graft, Hx Gastric Bypass Surgery, Hx Open Heart Surgery, Hx Pacemaker - Immunizations Hx Diphtheria, Pertussis, Tetanus Vaccination: No Physical Exam - Vital signs Vitals: Temp Pulse Resp BP Pulse Ox 99.2 F 73 24 H 174/152 H 97 08/17/18 17:53 08/17/18 17:53 08/17/18 17:53 08/17/18 17:53 08/17/18 17:53 Course - Vital Signs Vital signs: Temp Pulse Resp BP Pulse Ox 99.2 F 73 24 H 174/152 H 97 08/17/18 17:53 08/17/18 17:53 08/17/18 17:53 08/17/18 17:53 08/17/18 17:53 Doctor's Discharge - Discharge Referrals: YOSI HIGHTOWER MD [Primary Care Provider] - Follow up as needed
--- NOTE | 2018-08-17 18:36 | RADIOLOGY REPORT (SQ) ---
EXAM DESCRIPTION: CHEST 2 VIEWS COMPLETED DATE/TIME: 08/17/2018 6:25 pm REASON FOR STUDY: short of breath hard to get breath COMPARISON: 06/05/2018. EXAM PARAMETERS: NUMBER OF VIEWS: two views TECHNIQUE: Digital Frontal and Lateral radiographic views of the chest acquired. RADIATION DOSE: NA LIMITATIONS: none FINDINGS: LUNGS AND PLEURA: No opacities, masses or pneumothorax. No pleural effusion. MEDIASTINUM AND HILAR STRUCTURES: No masses or contour abnormalities. HEART AND VASCULAR STRUCTURES: Heart upper limits of normal size. No evidence for failure. BONES: No acute findings. HARDWARE: Hardware in the cervical spine. OTHER: No other significant finding. IMPRESSION: NO ACUTE RADIOGRAPHIC FINDING IN THE CHEST. TECHNICAL DOCUMENTATION: JOB ID: [id number] [employer]- All Rights Reserved Reading location - IP/workstation name: [email or web address]
[2018-08-17 18:50] LABS: ABSOLUTE BASOPHILS # (AUTO) 0.1 10^3/uL (0.0-0.2); ABSOLUTE EOSINOPHILS # (AUTO) 0.2 10^3/uL (0.0-0.6); ABSOLUTE LYMPHOCYTES (AUTO) 1.3 10^3/uL (0.5-4.7); ABSOLUTE MONOCYTES (AUTO) 0.6 10^3/uL (0.1-1.4); ABSOLUTE NEUT (AUTO) 5.3 10^3/uL (1.7-8.2); BASOPHILS % (AUTO) 0.7 % (0-2); EOSINOPHILS % (AUTO) 2.4 % (0-6); HEMATOCRIT 44.3 % (37.9-51.0); HEMOGLOBIN 14.7 g/dL (13.5-17.0); LYMPHOCYTES % (AUTO) 17.8 % (13-45); MEAN CORPUSCULAR HEMOGLOBIN 28.4 pg (27.0-33.4); MEAN CORPUSCULAR HGB CONC 33.1 g/dL (32.0-36.0); MEAN CORPUSCULAR VOLUME 86 fl (80-97); MONOCYTES % (AUTO) 8.2 % (3-13); PLATELET COUNT 232 10^3/uL (150-450); RED BLOOD COUNT 5.16 10^6/uL (4.35-5.55); RED CELL DISTRIBUTION WIDTH 15.4 % (11.5-14.0); SEGMENTED NEUTROPHILS % (AUTO) 70.9 % (42-78); TOTAL CELLS COUNTED % (AUTO) 100 %; WHITE BLOOD COUNT 7.4 10^3/uL (4.0-10.5)
--- NOTE | 2018-08-17 18:58 | EKG REPORT ---
SEVERITY:- NORMAL ECG - SINUS RHYTHM : Confirmed by: Richard Go MD 17-Aug-2018 18:57:07
[2018-08-17 19:10] LABS: ALANINE AMINOTRANSFERASE 40 U/L (21-72); ALBUMIN 3.9 g/dL (3.5-5.0); ALKALINE PHOSPHATASE 103 U/L (38-126); ANION GAP 9 (5-19); ASPARTATE AMINO TRANSFERASE 21 U/L (17-59); BILIRUBIN,DIRECT 0.3 mg/dL (0.0-0.4); BILIRUBIN,TOTAL 0.4 mg/dL (0.2-1.3); BLOOD UREA NITROGEN 19 mg/dL (7-20); CALCIUM 9.9 mg/dL (8.4-10.2); CARBON DIOXIDE 30 mmol/L (22-30); CHLORIDE 102 mmol/L (98-107); GLUCOSE 193 mg/dL (75-110); LIPASE 255.8 U/L (23-300); POTASSIUM 4.5 mmol/L (3.6-5.0); SODIUM 141.4 mmol/L (137-145); TOTAL PROTEIN 7.2 g/dL (6.3-8.2)
[2018-08-17 19:38] LABS: CREATINE KINASE MB 0.85 ng/mL (<4.55); NT PRO BNP 270 pg/mL (5-900); TROPONIN I < 0.012 ng/mL
[2018-08-17 21:38] LABS: APPEARANCE,URINE SLIGHTLY-CLOUDY; BILIRUBIN,URINE NEGATIVE (NEGATIVE); COLOR,URINE YELLOW; GLUCOSE, URINE NEGATIVE (NEGATIVE); KETONES,URINE NEGATIVE (NEGATIVE); LEUKOCYTE ESTERASE,URINE SMALL (NEGATIVE); NITRITE,URINE NEGATIVE (NEGATIVE); PROTEIN,URINE NEGATIVE (NEGATIVE); URINE SPECIFIC GRAVITY 1.015; UROBILINOGEN,URINE NEGATIVE mg/dL (<2.0)
--- NOTE | 2018-08-17 21:59 | ER Document Report ---
ED General - General Chief Complaint: Breathing Difficulty Stated Complaint: DIFFICULTY BREATHING Time Seen by Provider: 08/17/18 18:12 Primary Care Provider: YOSI HIGHTOWER MD [Primary Care Provider] - Follow up as needed Mode of Arrival: Wheelchair Notes: Patient is a 62-year-old male who presents with complaint of dyspnea. Says is been gradually worsening over the last several weeks. He does admit that he is gained more weight the last 6 months. He is currently well over 400 pounds. Denies any chest pain. No fevers. He is a diabetic. He says he cut back on his insulin mix he feels that he does not need it anymore. Sugar today was 197. He says that he considers this a good number being that he just ate before coming in. Patient also says he decrease his Bumex. He says he reads about his medications online and does not like some of the side effects and feels that he does not need as much Bumex as he was on. He denies any fevers. He does see a family physician. Patient does live next door to his parents. His parents said that he comes over and visits every day. They said that when he walks over the house he becomes short of breath. Patient has chronic edema in his lower extremities which she says fluctuates. TRAVEL OUTSIDE OF THE [place] IN LAST 30 DAYS: No - Related Data Allergies/Adverse Reactions: benztropine [From Cogentin] Allergy (Severe, Verified 08/17/18 17:53) Anaphylaxis codeine [Codeine] Allergy (Severe, Verified 08/17/18 17:53) HYPERACTIVE Penicillins Allergy (Mild, Verified 08/17/18 17:53) RASH Past Medical History - General Information source: Patient - Social History Smoking Status: Former Smoker Chew tobacco use (# tins/day): No Frequency of alcohol use: None Drug Abuse: None Family History: Reviewed & Not Pertinent Patient has suicidal ideation: No Patient has homicidal ideation: No - Past Medical History Cardiac Medical History: Reports: Hx Congestive Heart Failure, Hx DVT, Hx Hypercholesterolemia, Hx Hypertension, Hx Pulmonary Embolism Denies: Hx Atrial Fibrillation, Hx Coronary Artery Disease, Hx Heart Attack, Hx Peripheral Vascular Disease, Hx Heart Murmur Pulmonary Medical History: Reports: Hx Asthma, Hx COPD, Hx Pneumonia, Hx Sleep Apnea Denies: Hx Bronchitis, Hx Respiratory Failure, Hx Tuberculosis Neurological Medical History: Denies: Hx Cerebrovascular Accident, Hx Seizures Endocrine Medical History: Reports: Hx Diabetes Mellitus Type 2. Denies: Hx Graves' Disease, Hx Hyperthyroidism, Hx Hypothyroidism Renal/ Medical History: Denies: Hx Peritoneal Dialysis Malignancy Medical History: Denies Hx Leukemia, Denies Hx Lung Cancer GI Medical History: Reports: Hx Hiatal Hernia. Denies: Hx Crohn's Disease, Hx Gastroesophageal Reflux Disease, Hx Hepatitis, Hx Irritable Bowel, Hx Liver Fa ilure, Hx Pancreatitis, Hx Ulcer Musculoskeletal Medical History: Reports Hx Arthritis, Denies Hx Fibromyalgia, Denies Hx Muscular Dystrophy, Denies Hx Systemic Lupus Erythematosus Psychiatric Medical History: Reports: Hx Anxiety, Hx Depression, Hx Post Traumatic Stress Disorder, Hx Schizophrenia Denies: Hx Bipolar Disorder Traumatic Medical History: Reports: Hx Fractures Infectious Medical History: Denies: Hx Hepatitis, Hx HIV Past Surgical History: Reports: Hx Abdominal Surgery - hernia repair, Hx Cardiac Catheterization - 30% blockage, Hx Genitourinary Surgery - VASECTOMY, Hx Herniorrhaphy, Hx Oral Surgery - TOOTH EXTRACTION, Hx Orthopedic Surgery - PLATE SCREWS DISC AND BONE GRAFT: NECK, Hx Tonsillectomy. Denies: Hx Appendectomy, Hx Bowel Surgery, Hx Cholecystectomy, Hx Colostomy, Hx Coronary Artery Bypass Graft, Hx Gastric Bypass Surgery, Hx Open Heart Surgery, Hx Pacemaker - Immunizations Hx Diphtheria, Pertussis, Tetanus Vaccination: No Hx Pneumococcal Vaccination: 04/07/09 Review of Systems - Review of Systems Notes: My Normal Review Basic REVIEW OF SYSTEMS: CONSTITUTIONAL : Denies fever, chills, or sweats. Denies recent illness. EENT: Denies eye, ear, throat, or mouth pain or symptoms. Denies nasal or sinus congestion. CARDIOVASCULAR: Denies chest pain. RESPIRATORY: Dyspnea GASTROINTESTINAL: Denies abdominal pain. Denies nausea, vomiting, or diarrhea. GENITOURINARY: Denies difficulty urinating, painful urination, burning, frequency, or blood in urine. MUSCULOSKELETAL: Denies neck or back pain or joint pain or swelling. SKIN: Denies rash or skin lesions. NEUROLOGICAL: Denies altered mental status or loss of consciousness. Denies headache. Denies weakness or paralysis or loss of use of either side. Denies problems with gait or speech. Denies sensory or motor loss. ALL OTHER SYSTEMS REVIEWED AND NEGATIVE. Physical Exam - Vital signs Vitals: Temp Pulse Resp BP Pulse Ox 99.2 F 73 24 H 174/152 H 97 08/17/18 17:53 08/17/18 17:53 08/17/18 17:53 08/17/18 17:53 08/17/18 17:53 - Notes Notes: General Appearance: Well nourished, alert, cooperative, no acute distress, no obvious discomfort. Vitals: reviewed, See vital signs table. Eyes: PERRL, EOMI, Conjuctiva clear Mouth: No decreasd moisture Lungs: No wheezing, No rales, No rhonci, No accessory muscle use, good air exchange bilaterally. Heart: Normal rate, Regular rythm, No murmur, no rub Abdomen: Normal BS, soft, No rigidity, No abdominal tenderness, No guarding, no rebound Extremities: good pulses in all extremities, no swelling or tenderness in the extremities, patient's legs have signs of chronic edema. He has hardening of the skin from previous cellulitis. He has firmness from chronic edema. Skin: warm, dry, appropriate color, no rash Neuro: speech clear, oriented x 3, normal affect, responds appropriately to questions. Course - Re-evaluation Re-evalutation: 08/19/18 04:05 I suspect the patient's dyspnea is related to the fact that he is so overweight. He admits that he has gained significant amount of weight last couple months and his parents also admit the same thing. He said that he has been sitting on a computer most the day and not getting any exercise. He denies any chest pain. He denies being diaphoretic. I do not think that his dyspnea is related to coronary disease I think is more related to the fact that he is extremely overweight. I informed him and his parents that he needs to start exercising. I informed him that he should start taking his medications as prescribed. I encouraged him to return to ER immediately if he has any chest pain or worsening difficulty breathing or if he feels that he is worsening in any way. Patient agrees with plan and will be discharged home. Dictation of this chart was performed using voice recognition software; therefore, there may be some unintended grammatical errors. - Vital Signs Vital signs: Temp Pulse Resp BP Pulse Ox 99.2 F 73 29 H 149/66 H 95 08/17/18 17:53 08/17/18 17:53 08/17/18 22:02 08/17/18 22:02 08/17/18 22:02 - Laboratory Result Diagrams: 08/17/18 18:30 08/17/18 18:30 Laboratory results interpreted by me: 08/17/18 08/17/18 08/17/18 18:30 18:30 21:10 RDW 15.4 H Glucose 193 H Urine Blood SMALL H Ur Leukocyte Esterase SMALL H - EKG Interpretation by Me Additional EKG results interpreted by me: 08/17/18 21:58 EKG is reviewed and interpreted by me. EKG shows sinus rhythm with a rate of [address] segment elevation or depression. No ischemic T wave inversions. MO interval, QRS duration, QT intervals are within normal range. Old EKG for comparison is from June 05, 2018. Discharge - Discharge Clinical Impression: Morbid obesity with BMI of 50.0-59.9, adult Dyspnea Qualifiers: Dyspnea type: unspecified Qualified Code(s): R06.00 - Dyspnea, unspecified Condition: Good Disposition: HOME, SELF-CARE Additional Instructions: Your laboratory evaluation is unremarkable. I suspect that your shortness of breath is related to you being very obese. You really must lose weight. Losing weight will lead to improvements in your blood sugar as well as improvements in your shortness of breath. You should still have a low threshold to return to the ER if you have chest pain, fevers, or worsening difficulty breathing. Please follow-up with your doctor within a week to discuss your medication regimen to discuss weight loss plans as well. Referrals: YOSI HIGHTOWER MD [Primary Care Provider] - Follow up as needed
[2018-08-18 04:47] VITALS: BP 149/66
== END 2018-08-17 22:10 | disposition home or self-care (01) ==
LOC: ER 17:44
DX: E66.01 Morbid (severe) obesity due to excess calories (principal); Z68.43 Body mass index [BMI] 50.0-59.9, adult; J44.9 Chronic obstructive pulmonary disease, unspecified; I11.0 Hypertensive heart disease with heart failure; I50.9 Heart failure, unspecified; T50.1X6A Underdosing of loop [high-ceiling] diuretics, initial encounter; Z91.128 Patient's intentional underdosing of medication regimen for other reason; E11.9 Type 2 diabetes mellitus without complications; T38.3X6A Underdosing of insulin and oral hypoglycemic [antidiabetic] drugs, initial encounter; Z88.8 Allergy status to other drugs, medicaments and biological substances; Z88.5 Allergy status to narcotic agent; Z88.0 Allergy status to penicillin; Z87.891 Personal history of nicotine dependence; Z86.711 Personal history of pulmonary embolism
CPT/HCPCS: 93005; 99285; 36415; 82553; 83690; 85025; 80053; 81001; 84484; 83880; 71046; 93010; A9270

== ENCOUNTER 2018-08-20 14:13 | Emergency (ER) | payer MEDICARE, MEDICAID ==
[2018-08-20] MEDS ORDERED: ALBUTEROL SULFATE 0.083% NEB 2.5 MG/3 ML AMPUL NEB ONE (14:32)
--- NOTE | 2018-08-20 14:34 | ER Document Report ---
ED Medical Screen (RME) - General Chief Complaint: Breathing Difficulty Stated Complaint: DIFFICULTY BREATHING Time Seen by Provider: 08/20/18 14:31 Primary Care Provider: YOSI HIGHTOWER MD [Primary Care Provider] - Follow up as needed Mode of Arrival: Wheelchair Information source: Patient Notes: Morbidly obese 62-year-old male patient presents to ED for severe shortness of breath. He states he had cataract surgery a week ago and is been in bed 20 hours a day because he has been sleeping. He states he was seen here on Friday night for similar symptoms and has continued to be in the bed. Patient has a history of elevated blood pressure. His blood pressure is elevated now. Lung sounds are diminished. Labs chest x-ray and albuterol nebulizer ordered I have greeted and performed a rapid initial assessment of this patient. A comprehensive ED assessment and evaluation of the patient, analysis of test results and completion of medical decision making process will be conducted by an additional ED providers. Dictation of this chart was performed using voice recognition software; therefore, there may be some unintended grammatical errors. TRAVEL OUTSIDE OF THE [place] IN LAST 30 DAYS: No - Related Data Allergies/Adverse Reactions: benztropine [From Cogentin] Allergy (Severe, Verified 08/20/18 14:14) Anaphylaxis codeine [Codeine] Allergy (Severe, Verified 08/20/18 14:14) HYPERACTIVE Penicillins Allergy (Mild, Verified 08/20/18 14:14) RASH Past Medical History - Past Medical History Cardiac Medical History: Reports: Hx Congestive Heart Failure, Hx DVT, Hx Hypercholesterolemia, Hx Hypertension, Hx Pulmonary Embolism Denies: Hx Atrial Fibrillation, Hx Coronary Artery Disease, Hx Heart Attack, Hx Peripheral Vascular Disease, Hx Heart Murmur Pulmonary Medical History: Reports: Hx Asthma, Hx COPD, Hx Pneumonia, Hx Sleep Apnea Denies: Hx Bronchitis, Hx Respiratory Failure, Hx Tuberculosis Neurological Medical History: Denies: Hx Cerebrovascular Accident, Hx Seizures Endocrine Medical History: Reports: Hx Diabetes Mellitus Type 2. Denies: Hx Graves' Disease, Hx Hyperthyroidism, Hx Hypothyroidism Renal/ Medical History: Denies: Hx Peritoneal Dialysis Malignancy Medical History: Denies Hx Leukemia, Denies Hx Lung Cancer GI Medical History: Reports: Hx Hiatal Hernia. Denies: Hx Crohn's Disease, Hx Gastroesophageal Reflux Disease, Hx Hepatitis, Hx Irritable Bowel, Hx Liver Failure, Hx Pancreatitis, Hx Ulcer Musculoskeltal Medical History: Reports Hx Arthritis, Denies Hx Fibromyalgia, Denies Hx Muscular Dystrophy, Denies Hx Systemic Lupus Erythematosus Psychiatric Medical History: Reports: Hx Anxiety, Hx Depression, Hx Post Traumatic Stress Disorder, Hx Schizophrenia Denies: Hx Bipolar Disorder Traumatic Medical History: Reports: Hx Fractures Infectious Medical History: Denies: Hx Hepatitis, Hx HIV Past Surgical History: Reports: Hx Abdominal Surgery - hernia repair, Hx Cardiac Catheterization - 30% blockage, Hx Genitourinary Surgery - VASECTOMY, Hx Herniorrhaphy, Hx Oral Surgery - TOOTH EXTRACTION, Hx Orthopedic Surgery - PLATE SCREWS DISC AND BONE GRAFT: NECK, Hx Tonsillectomy. Denies: Hx Appendectomy, Hx Bowel Surgery, Hx Cholecystectomy, Hx Colostomy, Hx Coronary Artery Bypass Graft, Hx Gastric Bypass Surgery, Hx Open Heart Surgery, Hx Pacemaker - Immunizations Hx Diphtheria, Pertussis, Tetanus Vaccination: No Physical Exam - Vital signs Vitals: Temp Pulse Resp BP Pulse Ox 98.2 F 87 20 176/89 H 97 08/20/18 14:20 08/20/18 14:20 08/20/18 14:20 08/20/18 14:20 08/20/18 14:20 Course - Vital Signs Vital signs: Temp Pulse Resp BP Pulse Ox 98.2 F 87 20 176/89 H 97 08/20/18 14:20 08/20/18 14:20 08/20/18 14:20 08/20/18 14:20 08/20/18 14:20 Doctor's Discharge - Discharge Referrals: YOSI HIGHTOWER MD [Primary Care Provider] - Follow up as needed
--- NOTE | 2018-08-20 14:56 | ER Document Report ---
ED Respiratory Problem - General Chief Complaint: Breathing Difficulty Stated Complaint: DIFFICULTY BREATHING Time Seen by Provider: 08/20/18 14:31 Primary Care Provider: YOSI HIGHTOWER MD [Primary Care Provider] - Follow up as needed Mode of Arrival: Wheelchair Notes: This is a morbidly obese 62-year-old male complaining of worsening shortness of breath as he describes as having a (hyperventilation episode). Patient states that he has a large heart but this is not a "enlarged heart". 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 Once again of note patient is morbidly obese 62-year-old male. States that he stopped all of his medication recently because he had cataract surgery. He was on significant amount of diuretic medication as well as Ranexa. States that he has felt better since getting off of the medication. Was seen here 2 days ago for the same thing. Nothing was found abnormal at that particular visit. Patient's elderly mother and father are in the room. Patient's mother is concerned because he is laying to flat in the bed. Patient is followed by Dr. Rubi's office for cardiology, Dr. Chang office for pulmonology. States that the shortness of breath is worse with with exertion but he feels better l aying completely flat. Currently his vital signs are normal. TRAVEL OUTSIDE OF THE [place] IN LAST 30 DAYS: No - HPI Patient complains to provider of: Short of breath Onset: Yesterday Duration: Better Initiating Event: Exertion Severity: Mild Pain Level: Denies Context: Hx CHF - Related Data Allergies/Adverse Reactions: benztropine [From Cogentin] Allergy (Severe, Verified 08/20/18 14:14) Anaphylaxis codeine [Codeine] Allergy (Severe, Verified 08/20/18 14:14) HYPERACTIVE Penicillins Allergy (Mild, Verified 08/20/18 14:14) RASH Past Medical History - General Information source: Patient - Social History Smoking Status: Former Smoker Frequency of alcohol use: None Drug Abuse: None Lives with: Family Family History: Reviewed & Not Pertinent Patient has suicidal ideation: No Patient has homicidal ideation: No - Past Medical History Cardiac Medical History: Reports: Hx Congestive Heart Failure, Hx DVT, Hx Hypercholesterolemia, Hx Hypertension, Hx Pulmonary Embolism Denies: Hx Atrial Fibrillation, Hx Coronary Artery Disease, Hx Heart Attack, Hx Peripheral Vascular Disease, Hx Heart Murmur Pulmonary Medical History: Reports: Hx Asthma, Hx COPD, Hx Pneumonia, Hx Sleep Apnea Denies: Hx Bronchitis, Hx Respiratory Failure, Hx Tuberculosis Neurological Medical History: Denies: Hx Cerebrovascular Accident, Hx Seizures Endocrine Medical History: Reports: Hx Diabetes Mellitus Type 2. Denies: Hx Graves' Disease, Hx Hyperthyroidism, Hx Hypothyroidism Renal/ Medical History: Denies: Hx Peritoneal Dialysis Malignancy Medical History: Denies Hx Leukemia, Denies Hx Lung Cancer GI Medical History: Reports: Hx Hiatal Hernia. Denies: Hx Crohn's Disease, Hx Gastroesophageal Reflux Disease, Hx Hepatitis, Hx Irritable Bowel, Hx Liver Failure, Hx Pancreatitis, Hx Ulcer Musculoskeletal Medical History: Reports Hx Arthritis, Denies Hx Fibromyalgia, Denies Hx Muscular Dystrophy, Denies Hx Systemic Lupus Erythematosus Psychiatric Medical History: Reports: Hx Anxiety, Hx Depression, Hx Post Traumatic Stress Disorder, Hx Schizophrenia Denies: Hx Bipolar Disorder Traumatic Medical History: Reports: Hx Fractures Infectious Medical History: Denies: Hx Hepatitis, Hx HIV Past Surgical History: Reports: Hx Abdominal Surgery - hernia repair, Hx Cardiac Catheterization - 30% blockage, Hx Genitourinary Surgery - VASECTOMY, Hx Herniorrhaphy, Hx Oral Surgery - TOOTH EXTRACTION, Hx Orthopedic Surgery - PLATE SCREWS DISC AND BONE GRAFT: NECK, Hx Tonsillectomy. Denies: Hx Appendectomy, Hx Bowel Surgery, Hx Cholecystectomy, Hx Colostomy, Hx Coronary Artery Bypass Graft, Hx Gastric Bypass Surgery, Hx Open Heart Surgery, Hx Pacemaker - Immunizations Hx Diphtheria, Pertussis, Tetanus Vaccination: No Hx Pneumococcal Vaccination: 04/07/09 Review of Systems - Review of Systems Notes: Constitutional: denies: Chills, Diaphoresis, Fever, Malaise, Weakness EENT: denies: Eye discharge, Blurred vision, Tearing, Double vision, Nose congestion, Nose discharge, Throat swelling, Mouth pain Cardiovascular: denies: Palpitations, Heart racing, Orthopnea, +Dyspnea, -Chest pain Respiratory: denies: Cough, Hurts to breathe, Wheezing, +Shortness of breath Gastrointestinal: denies: Abdominal pain, Diarrhea, Nausea, Vomiting, Black stools, bright red blood in stool Genitourinary: denies: Burning, Dysuria, Discharge, Frequency, Flank pain, Hematuria Musculoskeletal: denies: Joint pain, Joint swelling, Muscle pain, Muscle stiffness, back pain Hematologic/Lymphatic: denies: Anemia, Easy bleeding, Easy bruising, Blood clots Neurological/Psychological: denies: Confusion, Dementia, Depression, Loss of consciousness Skin: No lesions, no masses, no skin breakdown, no abscesses Physical Exam - Vital signs Vitals: Temp Pulse Resp BP Pulse Ox 98.2 F 87 20 176/89 H 97 08/20/18 14:20 08/20/18 14:20 08/20/18 14:20 08/20/18 14:20 08/20/18 14:20 Interpretation: Normal - Notes Notes: Orbitally obese 62-year-old male - General General appearance: Appears well, Alert - HEENT Head: Normocephalic, Atraumatic Eyes: Normal Pupils: PERRL Neck: Supple, Other - No JVD. No subcutaneous emphysema - Respiratory Respiratory status: No respiratory distress Chest status: Nontender Breath sounds: Normal Chest palpation: Normal - Cardiovascular Rhythm: Regular Heart sounds: Normal auscultation Murmur: No - Abdominal Inspection: Normal Distension: No distension Bowel sounds: Normal Tenderness: Nontender Organomegaly: No organomegaly - Back Back: Normal, Nontender - Extremities General upper extremity: Normal inspection, Nontender, Normal color, Normal ROM, Normal temperature General lower extremity: Normal inspection, Nontender, Edema - 1+ pitting edema to the bilateral anterior tibias. There is no significant edema to the feet., Normal color, Normal ROM, Normal temperature. No: Zahira's sign - Neurological Neuro grossly intact: Yes Cognition: Normal Orientation: AAOx4 Chad Coma Scale Eye Opening: Spontaneous Chad Coma Scale Verbal: Oriented Hamel Coma Scale Motor: Obeys Commands Chad Coma Scale Total: 15 Speech: Normal Motor strength normal: LUE, RUE, LLE, RLE Sensory: Normal - Psychological Associated symptoms: Normal affect, Normal mood - Skin Skin Temperature: Warm Skin Moisture: Dry Skin Color: Normal Course - Re-evaluation Re-evalutation: 08/20/18 18:14 Laboratory 08/20/18 08/20/18 08/20/18 15:00 15:00 15:00 WBC 7.9 RBC 4.90 Hgb 14.0 Hct 41.8 MCV 85 MCH 28.5 MCHC 33.5 RDW 15.5 H Plt Count 218 Seg Neutrophils % 78.0 Lymphocytes % 13.3 Monocytes % 6.0 Eosinophils % 2.0 Basophils % 0.7 Absolute Neutrophils 6.2 Absolute Lymphocytes 1.1 Absolute Monocytes 0.5 Absolute Eosinophils 0.2 Absolute Basophils 0.1 Sodium 139.8 Potassium 3.9 Chloride 101 Carbon Dioxide 32 H Anion Gap 7 BUN 17 Creatinine 0.86 Est GFR ( Amer) > 60 Est GFR (Non-Af Amer) > 60 Glucose 238 H Calcium 9.4 Total Bilirubin 0.6 Direct Bilirubin 0.3 Neonat Total Bilirubin Not Reportable Neonat Direct Bilirubin Not Reportable Neonat Indirect Bili Not Reportable AST 26 ALT 45 Alkaline Phosphatase 96 Troponin I NT-Pro-B Natriuret Pep 229 Total Protein 6.7 Albumin 3.7 08/20/18 15:00 WBC RBC Hgb Hct MCV MCH MCHC RDW Plt Count Seg Neutrophils % Lymphocytes % Monocytes % Eosinophils % Basophils % Absolute Neutrophils Absolute Lymphocytes Absolute Monocytes Absolute Eosinophils Absolute Basophils Sodium Potassium Chloride Carbon Dioxide Anion Gap BUN Creatinine Est GFR ( Amer) Est GFR (Non-Af Amer) Glucose Calcium Total Bilirubin Direct Bilirubin Neonat Total Bilirubin Neonat Direct Bilirubin Neonat Indirect Bili AST ALT Alkaline Phosphatase Troponin I < 0.012 NT-Pro-B Natriuret Pep Total Protein Albumin Chest X-Ray 08/20/18 14:31 IMPRESSION: Cardiomegaly without acute abnormality of the lungs in frontal projection. Long discussion had with patient with regards to his morbid obesity. Patient realizes he has a major problem. Was on weight loss plan before. 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 I did speak with Dr. Rubi who is seeing him with cardiology. He states that he can actually see the patient tomorrow if he would like to come in. Dr. Rubi is also an obesity specialist as well as a er registrar. I have advised the patient that a lot of his respiratory problems seem to be from his abdominal obesity and that he will likely benefit from losing approximately 200 pounds. This will require a lot of work and commitment and the care of a physician. Patient is willing to give this a try again. At this time his labs do not reveal that he is in congestive heart failure. He does have cardiomegaly but this is old. His EKG is normal. His labs are completely unremarkable. I feel comfortable discharging at this time in stable condition. - Vital Signs Vital signs: Temp Pulse Resp BP Pulse Ox 98.2 F 87 13 140/76 H 96 08/20/18 14:20 08/20/18 14:20 08/20/18 15:11 08/20/18 15:11 08/20/18 15:11 - Laboratory Result Diagrams: 08/20/18 15:00 08/20/18 15:00 Laboratory results interpreted by me: 08/20/18 08/20/18 15:00 15:00 RDW 15.5 H Carbon Dioxide 32 H Glucose 238 H - EKG Interpretation by Me EKG shows normal: Sinus rhythm, Robins, Intervals, QRS Complexes, ST-T Waves Rate: Normal When compared to previous EKG there are: No significant change Additional EKG results interpreted by me: 08/20/18 15:02 Normal EKG Discharge - Discharge Clinical Impression: Dyspnea Qualifiers: Dyspnea type: other forms of dyspnea Qualified Code(s): R06.09 - Other forms of dyspnea Obesity Qualifiers: Obesity type: unspecified obesity type Obesity classification: adult class 3 (BMI >= 40) Serious obesity comorbidity presence: with serious comorbidity Body mass index: BMI 50.0-59.9 Qualified Code(s): E66.01 - Morbid (severe) obesity due to excess calories; Z68.43 - Body mass index (BMI) 50-59.9, adult Condition: Good Disposition: HOME, SELF-CARE Instructions: Dyspnea, Nonspecific ([facility]) Additional Instructions: Please follow-up with Dr. Rubi and discuss weight loss options at this time. Return for worsening symptoms or concerns. Referrals: YOSI HIGHTOWER MD [Primary Care Provider] - Follow up as needed
[2018-08-20 15:15] VITALS: BP 140/76
[2018-08-20 15:24] LABS: ABSOLUTE BASOPHILS # (AUTO) 0.1 10^3/uL (0.0-0.2); ABSOLUTE EOSINOPHILS # (AUTO) 0.2 10^3/uL (0.0-0.6); ABSOLUTE LYMPHOCYTES (AUTO) 1.1 10^3/uL (0.5-4.7); ABSOLUTE MONOCYTES (AUTO) 0.5 10^3/uL (0.1-1.4); ABSOLUTE NEUT (AUTO) 6.2 10^3/uL (1.7-8.2); BASOPHILS % (AUTO) 0.7 % (0-2); HEMATOCRIT 41.8 % (37.9-51.0); LYMPHOCYTES % (AUTO) 13.3 % (13-45); MEAN CORPUSCULAR HEMOGLOBIN 28.5 pg (27.0-33.4); MEAN CORPUSCULAR HGB CONC 33.5 g/dL (32.0-36.0); MEAN CORPUSCULAR VOLUME 85 fl (80-97); PLATELET COUNT 218 10^3/uL (150-450); RED CELL DISTRIBUTION WIDTH 15.5 % (11.5-14.0); TOTAL CELLS COUNTED % (AUTO) 100 %; WHITE BLOOD COUNT 7.9 10^3/uL (4.0-10.5)
--- NOTE | 2018-08-20 15:34 | RADIOLOGY REPORT (SQ) ---
EXAM DESCRIPTION: CHEST SINGLE VIEW COMPLETED DATE/TIME: 08/20/2018 3:19 pm REASON FOR STUDY: Short of breath history of COPD COMPARISON: 08/17/2018 EXAM PARAMETERS: NUMBER OF VIEWS: One view. TECHNIQUE: Single frontal radiographic view of the chest acquired. RADIATION DOSE: NA LIMITATIONS: None. FINDINGS: LUNGS AND PLEURA: No opacities, masses or pneumothorax. No pleural effusion. MEDIASTINUM AND HILAR STRUCTURES: No masses. Contour normal. HEART AND VASCULAR STRUCTURES: Cardiomegaly. BONES: No acute findings. HARDWARE: None in the chest. OTHER: No other significant finding. IMPRESSION: Cardiomegaly without acute abnormality of the lungs in frontal projection. TECHNICAL DOCUMENTATION: JOB ID: [id number] [employer]- All Rights Reserved Reading location - IP/workstation name: [email or web address]
[2018-08-20 15:43] LABS: ALANINE AMINOTRANSFERASE 45 U/L (21-72); ALBUMIN 3.7 g/dL (3.5-5.0); ALKALINE PHOSPHATASE 96 U/L (38-126); ANION GAP 7 (5-19); ASPARTATE AMINO TRANSFERASE 26 U/L (17-59); BILIRUBIN,DIRECT 0.3 mg/dL (0.0-0.4); BILIRUBIN,TOTAL 0.6 mg/dL (0.2-1.3); BLOOD UREA NITROGEN 17 mg/dL (7-20); CALCIUM 9.4 mg/dL (8.4-10.2); CARBON DIOXIDE 32 mmol/L (22-30); CHLORIDE 101 mmol/L (98-107); GLUCOSE 238 mg/dL (75-110); POTASSIUM 3.9 mmol/L (3.6-5.0); SODIUM 139.8 mmol/L (137-145); TOTAL PROTEIN 6.7 g/dL (6.3-8.2)
--- NOTE | 2018-08-21 07:44 | EKG REPORT ---
SEVERITY:- NORMAL ECG - SINUS RHYTHM : Confirmed by: Richard Go MD 21-Aug-2018 07:43:05
== END 2018-08-20 19:37 | disposition home or self-care (01) ==
LOC: ER 14:13
DX: E66.01 Morbid (severe) obesity due to excess calories (principal); Z68.43 Body mass index [BMI] 50.0-59.9, adult; I11.9 Hypertensive heart disease without heart failure; J44.9 Chronic obstructive pulmonary disease, unspecified; R06.02 Shortness of breath; E11.9 Type 2 diabetes mellitus without complications; Z88.8 Allergy status to other drugs, medicaments and biological substances; Z88.5 Allergy status to narcotic agent; Z88.0 Allergy status to penicillin; Z87.891 Personal history of nicotine dependence; Z86.711 Personal history of pulmonary embolism; Z86.718 Personal history of other venous thrombosis and embolism
CPT/HCPCS: 93005; 94640; 99284; 36415; 85025; 80053; 84484; 83880; 71045; 93010; A9270

== ENCOUNTER 2018-09-12 15:26 | Inpatient (IN) | payer MEDICARE, MEDICAID ==
--- NOTE | 2018-09-12 16:46 | ER Document Report ---
ED Medical Screen (RME) - General Chief Complaint: Breathing Difficulty Stated Complaint: SHORTNESS OF BREATH Time Seen by Provider: 09/12/18 16:29 Primary Care Provider: YOSI HIGHTOWER MD [Primary Care Provider] - Follow up as needed Notes: Patient is a morbidly obese 62-year-old male presents to the emergency department for generalized respiratory distress. Patient initially states he stopped his Klonopin 4 weeks ago and his Rexulti 1 week ago. States he thinks he is "withdrawing." Patient then glanced to state that he feels as though he was hyperventilating and both of his feet and hands are more swollen than normal. Patient's father is in the room who then goes on to state that the patient has more respiratory distress upon exertion which is been going on for the last year. Patient continues to change his story back and forth between respiratory distress, hyperventilating, currently feeling fine, chest pain. Patient's elderly father is in the room stating the patient has had respiratory distress for a year" nobody can figure out what is going on." Patient is morbidly obese in a wheelchair unable to walk. GENERAL: Alert, interacts well. No acute distress. EXTREMITIES: Moves all 4 extremities spontaneously. edema noted bilateral lower extremities. I have greeted and performed a rapid initial assessment of this patient. A comprehensive ED assessment and evaluation of the patient, analysis of test results and completion of the medical decision making process will be conducted by additional ED providers. This medical record was dictated with voice recognizing software. There may be grammatical, syntax errors that are unintended. TRAVEL OUTSIDE OF THE [place] IN LAST 30 DAYS: No - Related Data Allergies/Adverse Reactions: benztropine [From Cogentin] Allergy (Severe, Verified 09/12/18 15:27) Anaphylaxis codeine [Codeine] Allergy (Severe, Verified 09/12/18 15:27) HYPERACTIVE Penicillins Allergy (Mild, Verified 09/12/18 15:27) RASH Past Medical History - Social History Frequency of alcohol use: None Drug Abuse: None - Past Medical History Cardiac Medical History: Reports: Hx Congestive Heart Failure, Hx DVT, Hx Hypercholesterolemia, Hx Hypertension, Hx Pulmonary Embolism Denies: Hx Atrial Fibrillation, Hx Coronary Artery Disease, Hx Heart Attack, Hx Peripheral Vascular Disease, Hx Heart Murmur Pulmonary Medical History: Reports: Hx Asthma, Hx COPD, Hx Pneumonia, Hx Sleep Apnea Denies: Hx Bronchitis, Hx Respiratory Failure, Hx Tuberculosis Neurological Medical History: Denies: Hx Cerebrovascular Accident, Hx Seizures Endocrine Medical History: Reports: Hx Diabetes Mellitus Type 2. Denies: Hx Graves' Disease, Hx Hyperthyroidism, Hx Hypothyroidism Renal/ Medical History: Denies: Hx Peritoneal Dialysis Malignancy Medical History: Denies Hx Leukemia, Denies Hx Lung Cancer GI Medical History: Reports: Hx Hiatal Hernia. Denies: Hx Crohn's Disease, Hx Gastroesophageal Reflux Disease, Hx Hepatitis, Hx Irritable Bowel, Hx Liver Failure, Hx Pancreatitis, Hx Ulcer Musculoskeltal Medical History: Reports Hx Arthritis, Denies Hx Fibromyalgia, Denies Hx Muscular Dystrophy, Denies Hx Systemic Lupus Erythematosus Psychiatric Medical History: Reports: Hx Anxiety, Hx Depression, Hx Post Traumatic Stress Disorder, Hx Schizophrenia Denies: Hx Bipolar Disorder Traumatic Medical History: Reports: Hx Fractures Infectious Medical History: Denies: Hx Hepatitis, Hx HIV Past Surgical History: Reports: Hx Abdominal Surgery - hernia repair, Hx Cardiac Catheterization - 30% blockage, Hx Genitourinary Surgery - VASECTOMY, Hx Herniorrhaphy, Hx Oral Surgery - TOOTH EXTRACTION, Hx Orthopedic Surgery - PLATE SCREWS DISC AND BONE GRAFT: NECK, Hx Tonsillectomy. Denies: Hx Appendectomy, Hx Bowel Surgery, Hx Cholecystectomy, Hx Colostomy, Hx Coronary Artery Bypass Graft, Hx Gastric Bypass Surgery, Hx Open Heart Surgery, Hx Pacemaker - Immunizations Hx Diphtheria, Pertussis, Tetanus Vaccination: No Physical Exam - Vital signs Vitals: Temp Pulse Resp BP Pulse Ox 98.1 F 111 H 28 H 143/91 H 96 09/12/18 15:29 09/12/18 15:29 09/12/18 15:29 09/12/18 15:29 09/12/18 15:29 Course - Vital Signs Vital signs: Temp Pulse Resp BP Pulse Ox 98.1 F 111 H 28 H 143/91 H 96 09/12/18 15:29 09/12/18 15:29 09/12/18 15:29 09/12/18 15:29 09/12/18 15:29 Doctor's Discharge - Discharge Referrals: YOSI HIGHTOWER MD [Primary Care Provider] - Follow up as needed
--- NOTE | 2018-09-12 17:50 | RADIOLOGY REPORT (SQ) ---
EXAM DESCRIPTION: CHEST 2 VIEWS COMPLETED DATE/TIME: 09/12/2018 5:30 pm REASON FOR STUDY: SOB COMPARISON: 08/20/2018 EXAM PARAMETERS: NUMBER OF VIEWS: two views TECHNIQUE: Digital Frontal and Lateral radiographic views of the chest acquired. RADIATION DOSE: NA LIMITATIONS: none FINDINGS: LUNGS AND PLEURA: Minimal diffuse interstitial pulmonary opacity. MEDIASTINUM AND HILAR STRUCTURES: No masses or contour abnormalities. HEART AND VASCULAR STRUCTURES: Cardiomegaly. BONES: No acute findings. HARDWARE: None in the chest. OTHER: No other significant finding. IMPRESSION: Minimal diffuse interstitial pulmonary opacity, likely edema in the setting of cardiomeg tasneem. There is no focal airspace opacity. TECHNICAL DOCUMENTATION: JOB ID: [id number] [employer]- All Rights Reserved Reading location - IP/workstation name: [email or web address]
[2018-09-12 18:02] LABS: ABSOLUTE BASOPHILS # (AUTO) 0.1 10^3/uL (0.0-0.2); ABSOLUTE EOSINOPHILS # (AUTO) 0.1 10^3/uL (0.0-0.6); ABSOLUTE LYMPHOCYTES (AUTO) 0.8 10^3/uL (0.5-4.7); ABSOLUTE MONOCYTES (AUTO) 0.7 10^3/uL (0.1-1.4); EOSINOPHILS % (AUTO) 0.6 % (0-6); HEMATOCRIT 38.6 % (37.9-51.0); HEMOGLOBIN 13.2 g/dL (13.5-17.0); LYMPHOCYTES % (AUTO) 8.5 % (13-45); MEAN CORPUSCULAR HEMOGLOBIN 28.8 pg (27.0-33.4); MEAN CORPUSCULAR HGB CONC 34.3 g/dL (32.0-36.0); MEAN CORPUSCULAR VOLUME 84 fl (80-97); MONOCYTES % (AUTO) 7.1 % (3-13); PLATELET COUNT 321 10^3/uL (150-450); RED BLOOD COUNT 4.59 10^6/uL (4.35-5.55); SEGMENTED NEUTROPHILS % (AUTO) 82.8 % (42-78); TOTAL CELLS COUNTED % (AUTO) 100 %; WHITE BLOOD COUNT 9.7 10^3/uL (4.0-10.5)
[2018-09-12 18:22] LABS: ALANINE AMINOTRANSFERASE 24 U/L (21-72); ALBUMIN 3.4 g/dL (3.5-5.0); ALKALINE PHOSPHATASE 102 U/L (38-126); ANION GAP 12 (5-19); ASPARTATE AMINO TRANSFERASE 15 U/L (17-59); BILIRUBIN,DIRECT 0.4 mg/dL (0.0-0.4); BILIRUBIN,TOTAL 0.5 mg/dL (0.2-1.3); BLOOD UREA NITROGEN 33 mg/dL (7-20); CALCIUM 9.2 mg/dL (8.4-10.2); CARBON DIOXIDE 29 mmol/L (22-30); CHLORIDE 92 mmol/L (98-107); GLUCOSE 390 mg/dL (75-110); POTASSIUM 4.7 mmol/L (3.6-5.0); SODIUM 132.9 mmol/L (137-145); TOTAL PROTEIN 6.6 g/dL (6.3-8.2)
[2018-09-12 18:33] LABS: NT PRO BNP 798 pg/mL (5-900); TROPONIN I < 0.012 ng/mL
[2018-09-12] MEDS ORDERED: FUROSEMIDE INJ/PF 40 MG/4 ML SDV IV ONE (18:43)
--- NOTE | 2018-09-12 19:17 | ER Document Report ---
ED General - General Chief Complaint: Breathing Difficulty Stated Complaint: SHORTNESS OF BREATH Time Seen by Provider: 09/12/18 16:29 Primary Care Provider: YOSI HIGHTOWER MD [Primary Care Provider] - Follow up as needed Notes: Patient is a 62-year-old male with CHF, and history of PE that presents to the emergency department for chief complaint of shortness of breath and difficulty breathing. Patient reports that this is been progressing over the past few weeks, he states he was recently taking off of his diuretics including metolazone, and reduced on his Bumex, and taken off his spironolactone he is not sure why he was taken off these medicines he thinks they are just try to be weaned off. He denies having any associated chest pain. He states he can now only walk 5 to 10 feet without getting severely short of breath. He was out with family today, and got to the point where he decided come back to the emergency department. He was seen recently in the past few weeks, and was discharged home from the emergency department. He states that his legs seem like they are more swollen than usual and feels that his hands are swollen as well, which is more than usual, he states that his legs are typically swollen to a degree, but it has been worse. Past Medical History: Bipolar disorder, chronic kidney disease, CHF, history of PE, on Eliquis, obstructive sleep apnea Past Surgical History: Left heart catheterization, without stenting or intervention Social History: Denies tobacco, alcohol or illicit drug use. Family History: Reviewed and noncontributory for presenting illness Allergies: Reviewed, see documented allergy list. REVIEW OF SYSTEMS: Other than noted above, the 12 point review of systems was reviewed with the patient and were negative, all pertinent findings are included in the HPI. PHYSICAL EXAMINATION: Vital signs reviewed, nursing noted reviewed. GENERAL: Morbidly obese male, appears to be in a degree of respiratory distress, increased work of breathing, conversationally dyspneic HEAD: Atraumatic, normocephalic. EYES: Eyes appear normal, extraocular movements intact, sclera anicteric, conjunctiva are normal. ENT: nares patent, oropharynx clear without exudates. Moist mucous membranes. NECK: Normal range of motion, supple without lymphadenopathy LUNGS: Diminished lung sounds throughout all lung roper, conversational dyspnea, mild degree of respiratory distress. HEART: Regular rate and rhythm without murmurs ABDOMEN: Soft, obese, nontender, normoactive bowel sounds. No rebound, guarding, or rigidity. No masses appreciated. EXTREMITIES: Nontender, good range of motion, diffuse bilateral lower extremity edema, to the proximal tibias, 3+. NEUROLOGICAL: No focal neurological deficits. Moves all extremities spontaneously Motor and sensory grossly intact on exam. PSYCH: Normal mood, normal affect. SKIN: Warm, Dry, normal turgor, no rashes or lesions noted on exposed skin TRAVEL OUTSIDE OF THE [place] IN LAST 30 DAYS: No - Related Data Allergies/Adverse Reactions: benztropine [From Cogentin] Allergy (Severe, Verified 09/12/18 15:27) Anaphylaxis codeine [Codeine] Allergy (Severe, Verified 09/12/18 15:27) HYPERACTIVE Penicillins Allergy (Mild, Verified 09/12/18 15:27) RASH Past Medical History - Social History Smoking Status: Former Smoker Frequency of alcohol use: None Drug Abuse: None Family History: Reviewed & Not Pertinent Patient has suicidal ideation: No Patient has homicidal ideation: No - Past Medical History Cardiac Medical History: Reports: Hx Congestive Heart Failure, Hx DVT, Hx Hypercholesterolemia, Hx Hypertension, Hx Pulmonary Embolism Denies: Hx Atrial Fibrillation, Hx Coronary Artery Disease, Hx Heart Attack, Hx Peripheral Vascular Disease, Hx Heart Murmur Pulmonary Medical History: Reports: Hx Asthma, Hx COPD, Hx Pneumonia, Hx Sleep Apnea Denies: Hx Bronchitis, Hx Respiratory Failure, Hx Tuberculosis Neurological Medical History: Denies: Hx Cerebrovascular Accident, Hx Seizures Endocrine Medical History: Reports: Hx Diabetes Mellitus Type 2. Denies: Hx Graves' Disease, Hx Hyperthyroidism, Hx Hypothyroidism Renal/ Medical History: Denies: Hx Peritoneal Dialysis Malignancy Medical History: Denies Hx Leukemia, Denies Hx Lung Cancer GI Medical History: Reports: Hx Hiatal Hernia. Denies: Hx Crohn's Disease, Hx Gastroesophageal Reflux Disease, Hx Hepatitis, Hx Irritable Bowel, Hx Liver Failure, Hx Pancreatitis, Hx Ulcer Musculoskeletal Medical History: Reports Hx Arthritis, Denies Hx Fibromyalgia, Denies Hx Muscular Dystrophy, Denies Hx Systemic Lupus Erythematosus Psychiatric Medical History: Reports: Hx Anxiety, Hx Depression, Hx Post Traumatic Stress Disorder, Hx Schizophrenia Denies: Hx Bipolar Disorder Traumatic Medical History: Reports: Hx Fractures Infectious Medical History: Denies: Hx Hepatitis, Hx HIV Past Surgical History: Reports: Hx Abdominal Surgery - hernia repair, Hx Cardiac Catheterization - 30% blockage, Hx Genitourinary Surgery - VASECTOMY, Hx Herniorrhaphy, Hx Oral Surgery - TOOTH EXTRACTION, Hx Orthopedic Surgery - PLATE SCREWS DISC AND BONE GRAFT: NECK, Hx Tonsillectomy. Denies: Hx Appendectomy, Hx Bowel Surgery, Hx Cholecystectomy, Hx Colostomy, Hx Coronary Artery Bypass Graft, Hx Gastric Bypass Surgery, Hx Open Heart Surgery, Hx Pacemaker - Immunizations Hx Diphtheria, Pertussis, Tetanus Vaccination: No Hx Pneumococcal Vaccination: 04/07/09 Physical Exam - Vital signs Vitals: Temp Pulse Resp BP Pulse Ox 98.1 F 111 H 28 H 143/91 H 96 09/12/18 15:29 09/12/18 15:29 09/12/18 15:29 09/12/18 15:29 09/12/18 15:29 Course - Re-evaluation Re-evalutation: Patient seen and examined vital signs reviewed. Laboratory data and imaging were ordered as appropriate for the patient's presenting symptoms and complaint, with consideration of any critical or life threatening conditions that may be associated with their obtained history and exam as noted above. Patient was treated with Lasix, 40 mg, and placed on BiPAP Results were reviewed when available and demonstrated chest x-ray demonstrated pulmonary edema, patient was in acute renal failure, with mild hyponatremia, in my opinion this is likely secondary to volume overload, and caused by cardiorenal syndrome type II, and therefore the patient does need diuretics to improve his overall renal dysfunction. The patient was re-evaluated and was improved on BiPAP, stating he felt much more comfortable from a respiratory standpoint. His UA came back, signs of possible urinary tract infection, will add for culture, patient was asymptomatic, therefore will hold on antibiotics at this time, and leave that decision up to the admitting team. Evaluation was most consistent with acute on chronic CHF, pulmonary edema, acute renal failure Results were discussed with the patient at this point after careful consideration I feel that that patient should be admitted to the hospital. This was discussed with the patient that it is in the best interest for their care to be admitted for further evaluation and management. Patient agreed with this plan of care. A call was placed to the admitted physician, Dr. Downing who graciously accepted the patient onto their service. *Note is created using voice recognition software and may contain spelling, syntax or grammatical errors. Laboratory 09/12/18 09/12/18 09/12/18 17:45 17:45 17:45 WBC 9.7 RBC 4.59 Hgb 13.2 L Hct 38.6 MCV 84 MCH 28.8 MCHC 34.3 RDW 15.0 H Plt Count 321 Seg Neutrophils % 82.8 H Lymphocytes % 8.5 L Monocytes % 7.1 Eosinophils % 0.6 Basophils % 1.0 Absolute Neutrophils 8.0 Absolute Lymphocytes 0.8 Absolute Monocytes 0.7 Absolute Eosinophils 0.1 Absolute Basophils 0.1 Sodium 132.9 L Potassium 4.7 Chloride 92 L Carbon Dioxide 29 Anion Gap 12 BUN 33 H Creatinine 1.96 H Est GFR ( Amer) 42 L Est GFR (Non-Af Amer) 35 L Glucose 390 H Calcium 9.2 Total Bilirubin 0.5 Direct Bilirubin 0.4 Neonat Total Bilirubin Not Reportable Neonat Direct Bilirubin Not Reportable Neonat Indirect Bili Not Reportable AST 15 L ALT 24 Alkaline Phosphatase 102 Troponin I < 0.012 NT-Pro-B Natriuret Pep 798 Total Protein 6.6 Albumin 3.4 L TSH 09/12/18 17:45 WBC RBC Hgb Hct MCV MCH MCHC RDW Plt Count Seg Neutrophils % Lymphocytes % Monocytes % Eosinophils % Basophils % Absolute Neutrophils Absolute Lymphocytes Absolute Monocytes Absolute Eosinophils Absolute Basophils Sodium Potassium Chloride Carbon Dioxide Anion Gap BUN Creatinine Est GFR ( Amer) Est GFR (Non-Af Amer) Glucose Calcium Total Bilirubin Direct Bilirubin Neonat Total Bilirubin Neonat Direct Bilirubin Neonat Indirect Bili AST ALT Alkaline Phosphatase Troponin I NT-Pro-B Natriuret Pep Total Protein Albumin TSH 0.88 Chest X-Ray 09/12/18 16:41 IMPRESSION: Minimal diffuse interstitial pulmonary opacity, likely edema in the setting of cardiomegaly. There is no focal airspace opacity. - Vital Signs Vital signs: Temp Pulse Resp BP Pulse Ox 98.1 F 111 H 21 H 143/91 H 97 09/12/18 15:29 09/12/18 15:29 09/12/18 19:50 09/12/18 15:29 09/12/18 19:50 - Laboratory Result Diagrams: 09/12/18 17:45 09/12/18 17:45 Laboratory results interpreted by me: 09/12/18 09/12/18 09/12/18 17:45 17:45 21:09 Hgb 13.2 L RDW 15.0 H Seg Neutrophils % 82.8 H Lymphocytes % 8.5 L ABG pO2 61.8 L ABG HCO3 29.7 H ABG Total CO2 31.0 H ABG O2 Saturation 92.5 L Sodium 132.9 L Chloride 92 L BUN 33 H Creatinine 1.96 H Est GFR ( Amer) 42 L Est GFR (Non-Af Amer) 35 L Glucose 390 H AST 15 L Albumin 3.4 L Urine Protein Urine Blood Ur Leukocyte Esterase 09/12/18 21:12 Hgb RDW Seg Neutrophils % Lymphocytes % ABG pO2 ABG HCO3 ABG Total CO2 ABG O2 Saturation Sodium Chloride BUN Creatinine Est GFR ( Amer) Est GFR (Non-Af Amer) Glucose AST Albumin Urine Protein 30 H Urine Blood SMALL H Ur Leukocyte Esterase LARGE H - EKG Interpretation by Me Additional EKG results interpreted by me: EKG demonstrates sinus rhythm with a ventricular rate of 77 bpm, normal axis, normal intervals, no evidence of acute ischemia, there is no ST elevation, EKG is compared with one from 08/20/2018, without significant change. Discharge - Discharge Clinical Impression: Acute kidney injury, Morbid obesity with BMI of 50.0-59.9, adult, AUTUMN (obstructive sleep apnea) Pulmonary edema Qualifiers: Chronicity: acute Qualified Code(s): J81.0 - Acute pulmonary edema Condition: Stable Disposition: ADMITTED OBSERVATION Admitting Provider: Chang (Hospitalist) Unit Admitted: Telemetry Referrals: YOSI HIGHTOWER MD [Primary Care Provider] - Follow up as needed
[2018-09-12 21:30] LABS: APPEARANCE,URINE CLOUDY; BILIRUBIN,URINE NEGATIVE (NEGATIVE); GLUCOSE, URINE NEGATIVE (NEGATIVE); KETONES,URINE NEGATIVE (NEGATIVE); LEUKOCYTE ESTERASE,URINE LARGE (NEGATIVE); NITRITE,URINE NEGATIVE (NEGATIVE); PROTEIN,URINE 30 mg/dL (NEGATIVE); URINE SPECIFIC GRAVITY 1.013; UROBILINOGEN,URINE NEGATIVE mg/dL (<2.0)
[2018-09-12 21:31] LABS: COLOR,URINE YELLOW
[2018-09-12 21:33] LABS: ARTERIAL BLOOD H2CO3 1.32 mmol/L (1.05-1.35); ARTERIAL BLOOD HCO3 29.7 mmol/L (20-24); ARTERIAL BLOOD O2 SATURATION 92.5 % (94-98); ARTERIAL BLOOD PCO2 43.9 mmHg (35-45); ARTERIAL BLOOD PH 7.45 (7.35-7.45); ARTERIAL BLOOD PO2 61.8 mmHg (80-100)
[2018-09-12 21:42] LABS: ARTERIAL BLOOD FIO2 24%
--- NOTE | 2018-09-12 21:56 | EKG REPORT ---
SEVERITY:- NORMAL ECG - SINUS RHYTHM : Confirmed by: Richard Go MD 12-Sep-2018 21:55:34
[2018-09-12] MEDS ORDERED: ACETAMINOPHEN 325 MG TABLET PO PRN (22:12)
[2018-09-12] MEDS ORDERED: IPRATROPIUM/ALBUTEROL 0.5-2.5 MG/3 ML AMPUL NEB PRN (22:12)
[2018-09-12] MEDS ORDERED: INSULIN ASPART 9 UNIT SUBCUT SCH (22:45)
[2018-09-12] MEDS ORDERED: AZITHROMYCIN INJ 500 MG VIAL IV ONE (22:53)
[2018-09-12] MEDS: CEFTRIAXONE 1 GM/D5W RTU 1 GM/50 ML RTUPB IV SCH (23:00)
[2018-09-12] MEDS: AZITHROMYCIN 500 MG in DEXTROSE 5%-WATER 250 ML IV SCH (23:28)
[2018-09-12] MEDS: CARVEDILOL 12.5 MG TABLET PO SCH (23:31)
[2018-09-13] MEDS: IPRATROPIUM/ALBUTEROL 0.5-2.5 MG/3 ML AMPUL NEB SCH ×3 (01:14→15:33)
[2018-09-13 04:24] LABS: ABSOLUTE EOSINOPHILS # (AUTO) 0.1 10^3/uL (0.0-0.6); ABSOLUTE LYMPHOCYTES (AUTO) 0.8 10^3/uL (0.5-4.7); ABSOLUTE MONOCYTES (AUTO) 0.9 10^3/uL (0.1-1.4); ABSOLUTE NEUT (AUTO) 8.2 10^3/uL (1.7-8.2); BASOPHILS % (AUTO) 0.5 % (0-2); HEMATOCRIT 35.2 % (37.9-51.0); LYMPHOCYTES % (AUTO) 7.9 % (13-45); MEAN CORPUSCULAR HEMOGLOBIN 28.9 pg (27.0-33.4); MEAN CORPUSCULAR HGB CONC 34.2 g/dL (32.0-36.0); MEAN CORPUSCULAR VOLUME 84 fl (80-97); MONOCYTES % (AUTO) 8.7 % (3-13); PLATELET COUNT 305 10^3/uL (150-450); RED BLOOD COUNT 4.17 10^6/uL (4.35-5.55); RED CELL DISTRIBUTION WIDTH 14.8 % (11.5-14.0); SEGMENTED NEUTROPHILS % (AUTO) 81.9 % (42-78); TOTAL CELLS COUNTED % (AUTO) 100 %
[2018-09-13 04:37] LABS: ANION GAP 11 (5-19); BLOOD UREA NITROGEN 34 mg/dL (7-20); CALCIUM 8.8 mg/dL (8.4-10.2); CARBON DIOXIDE 30 mmol/L (22-30); CHLORIDE 94 mmol/L (98-107); GLUCOSE 301 mg/dL (75-110); POTASSIUM 4.1 mmol/L (3.6-5.0); SODIUM 135.1 mmol/L (137-145)
[2018-09-13] MEDS: HEPARIN SOD (PORCINE) 5,000 UNIT/ML 1 ML SYRINGE SUBCUT SCH ×2 (05:09→13:17)
--- NOTE | 2018-09-13 06:05 | PDOC H&P ---
History of Present Illness Admission Date/PCP: 09/12/18 22:30 YOSI HIGHTOWER MD Patient complains of: Shortness of breath History of Present Illness: KI DAVIS JR is a 62 year old male with a past medical history of diabetes, congestive heart failure, DVT on Eliquis, schizophrenia, morbid obesity will evaluate for metabolic cause with evaluation of thyroid function and dietitian consultation, hypoventilation syndrome and obstructive sleep apnea. He presents with several days of shortness of breath with wheeze and a nonproductive cough prompting him to seek evaluation in the emergency room where he is found to have acute renal failure, urinary tract infection and atypical pneumonia with global wheeze, tachypnea, retractions with hypoxia with a PO2 of 61. He is started on oxygen, BiPAP and referred to the hospitalist for admission. He denies infectious contacts. Medications recently changed include a reduction of Bumex and Aldactone. Past Medical History Cardiac Medical History: Reports: Congestive Heart Failure, DVT, Hyperlipidema, Hypertension, Pulmonary Embolism Denies: Atrial Fibrillation, Coronary Artery Disease, Myocardial Infarction, Peripheral Vascular Disease, Heart Murmur Pulmonary Medical History: Reports: Asthma, Bronchitis, Chronic Obstructive Pulmonary Disease (COPD), Pneumonia, Sleep Apnea Denies: Respiratory Failure, Tuberculosis Neurological Medical History: Denies: Seizures Endocrine Medical History: Reports: Diabetes Mellitus Type 2 Denies: Hyperthyroidism, Hypothyroidism Renal/ Medical History: Denies: End Stage Renal Disease Malignancy Medical History: Denies: Breast Cancer, Cervical Cancer, Leukemia, Lung Cancer, Ovarian Cancer GI Medical History: Reports: Hiatal Hernia Denies: Cirrhosis, Crohn's Disease, Gastroesophageal Reflux Disease, Hepatitis Musculoskeltal Medical History: Reports: Arthritis Denies: Fibromyalgia Psychiatric Medical History: Reports: Depression, Post Traumatic Stress Disorder, Schizoaffective Disorder Denies: Alcohol Dependency, Bipolar Disorder, Tobacco Dependency Hematology: Denies: Anemia, Hemophilia, Sickle Cell Disease, Bleeding Tendencies Infectious Medical History: Denies: HIV Past Surgical History Past Surgical History: Reports: Cardiac Catheterization - 30% blockage, Herniorrhaphy, Orthopedic Surgery - PLATE SCREWS DISC AND BONE GRAFT: NECK, Tonsillectomy Denies: Appendectomy, Cholecystectomy, Colostomy, Coronary Artery Bypass Graft, Gastric Bypass Surgery, Pacemaker Social History Information Source: Patient Smoking Status: Former Smoker Frequency of Alcohol Use: Rare Hx Recreational Drug Use: No Drugs: None Hx Prescription Drug Abuse: No - Advance Directive Resuscitation Status: Full Code Family History Family History: COPD, Hypertension Parental Family History Reviewed: Yes Children Family History Reviewed: Yes Sibling(s) Family History Reviewed.: Yes Medication/Allergy Home Medications: Bumetanide [Bumex 1 mg Tablet] 1 mg PO BID 10/10/16 Insulin Aspart [Novolog Flexpen] 9 unit SUBCUT .SLD SCALE 10/10/16 Kenney-3 Acid Ethyl Esters [Lovaza 1 gm Capsule] 2 gm PO BID 10/10/16 Turmeric/Turmeric Root Extract [Turmeric 500 mg Capsule] 1,000 mg PO BID 10/10/16 Vitamin B Complex [B Complex] 1 cap PO BID 10/10/16 Citalopram Hydrobromide [Celexa 20 mg Tablet] 20 mg PO NOON tablet 10/28/16 Ubidecarenone [Coq-10] 400 mg PO DAILY 08/30/17 Apixaban [Eliquis 5 mg Tablet] 5 mg PO BID 06/26/18 Aspirin [Ecotrin 81 mg EC Tablet] 81 mg PO DAILY 06/26/18 Albuterol Sulfate [Proair Hfa Inhalation Aerosol 8.5 gm Mdi] 1 puff IH Q4 PRN 08/07/18 Budesonide/Formoterol Fumarate [Symbicort Hfa 160-4.5 Mcg Inhaler 6 gm] 2 puff IH Q12 08/07/18 Carvedilol [Coreg 12.5 mg Tablet] 25 mg PO Q12 08/07/18 Potassium Chloride 20 meq PO BID 08/07/18 Allergies/Adverse Reactions: benztropine [From Cogentin] Allergy (Severe, Verified 09/12/18 15:27) Anaphylaxis codeine [Codeine] Allergy (Severe, Verified 09/12/18 15:27) HYPERACTIVE Penicillins Allergy (Mild, Verified 09/12/18 15:27) RASH Review of Systems ROS unobtainable: Due to mental status - Patient answers affirmatively to all questions and felt to be an unreliable historian Physical Exam Vital Signs: Temp Pulse Resp BP Pulse Ox 100.4 F 81 12 148/81 H 95 09/13/18 01:09 09/13/18 02:00 09/13/18 04:00 09/13/18 01:09 09/13/18 04:00 Intake & Output 09/11/18 09/12/18 09/13/18 11:59 11:59 11:59 Intake Total 300 Balance 300 Weight 193.1 kg General appearance: PRESENT: cooperative, disheveled, morbidly obese Head exam: PRESENT: atraumatic, normocephalic Eye exam: PRESENT: conjunctiva pink, EOMI, PERRLA. ABSENT: scleral icterus Ear exam: PRESENT: normal external ear exam Mouth exam: PRESENT: moist, tongue midline Neck exam: ABSENT: carotid bruit, JVD, lymphadenopathy, thyromegaly Respiratory exam: PRESENT: accessory muscle use, crackles, prolonged expiratory phas, retraction, symmetrical, tachypnea, wheezes. ABSENT: rhonchi Cardiovascular exam: PRESENT: RRR. ABSENT: diastolic murmur, rubs, systolic murmur Pulses: PRESENT: normal dorsalis pedis pul Vascular exam: PRESENT: normal capillary refill GI/Abdominal exam: PRESENT: normal bowel sounds, soft. ABSENT: distended, guarding, mass, organolmegaly, rebound, tenderness Rectal exam: PRESENT: deferred Extremities exam: PRESENT: +1 edema. ABSENT: calf tenderness, clubbing, pedal edema, tenderness Neurological exam: PRESENT: alert, awake, oriented to person, oriented to place, oriented to time, oriented to situation, CN II-XII grossly intact. ABSENT: motor sensory deficit Psychiatric exam: PRESENT: appropriate affect, normal mood. ABSENT: homicidal ideation, suicidal ideation Skin exam: PRESENT: dry, intact, warm. ABSENT: cyanosis, rash Results Laboratory Results: 09/13/18 03:40 09/13/18 03:40 09/12/18 09/12/18 09/12/18 17:45 17:45 17:45 WBC 9.7 RBC 4.59 Hgb 13.2 L Hct 38.6 MCV 84 MCH 28.8 MCHC 34.3 RDW 15.0 H Plt Count 321 Seg Neutrophils % 82.8 H Lymphocytes % 8.5 L Monocytes % 7.1 Eosinophils % 0.6 Basophils % 1.0 Absolute Neutrophils 8.0 Absolute Lymphocytes 0.8 Absolute Monocytes 0.7 Absolute Eosinophils 0.1 Absolute Basophils 0.1 Carbonic Acid HCO3/H2CO3 Ratio ABG pH ABG pCO2 ABG pO2 ABG HCO3 ABG O2 Saturation ABG Base Excess FiO2 Sodium 132.9 L Potassium 4.7 Chloride 92 L Carbon Dioxide 29 Anion Gap 12 BUN 33 H Creatinine 1.96 H Est GFR ( Amer) 42 L Est GFR (Non-Af Amer) 35 L Glucose 390 H Calcium 9.2 Total Bilirubin 0.5 AST 15 L ALT 24 Alkaline Phosphatase 102 Total Protein 6.6 Albumin 3.4 L TSH 0.88 Urine Color Urine Appearance Urine pH Ur Specific [place] Urine Protein Urine Glucose (UA) Urine Ketones Urine Blood Urine Nitrite Ur Leukocyte Esterase Urine WBC (Auto) Urine RBC (Auto) 09/12/18 09/12/18 09/13/18 21:09 21:12 03:40 WBC 10.0 RBC 4.17 L Hgb 12.0 L Hct 35.2 L MCV 84 MCH 28.9 MCHC 34.2 RDW 14.8 H Plt Count 305 Seg Neutrophils % 81.9 H Lymphocytes % 7.9 L Monocytes % 8.7 Eosinophils % 1.0 Basophils % 0.5 Absolute Neutrophils 8.2 Absolute Lymphocytes 0.8 Absolute Monocytes 0.9 Absolute Eosinophils 0.1 Absolute Basophils 0.0 Carbonic Acid 1.32 HCO3/H2CO3 Ratio 22:1 ABG pH 7.45 ABG pCO2 43.9 ABG pO2 61.8 L ABG HCO3 29.7 H ABG O2 Saturation 92.5 L ABG Base Excess 5.0 FiO2 24% Sodium Potassium Chloride Carbon Dioxide Anion Gap BUN Creatinine Est GFR ( Amer) Est GFR (Non-Af Amer) Glucose Calcium Total Bilirubin AST ALT Alkaline Phosphatase Total Protein Albumin TSH Urine Color YELLOW Urine Appearance CLOUDY Urine pH 5.0 Ur Specific [place] 1.013 Urine Protein 30 H Urine Glucose (UA) NEGATIVE Urine Ketones NEGATIVE Urine Blood SMALL H Urine Nitrite NEGATIVE Ur Leukocyte Esterase LARGE H Urine WBC (Auto) >182 Urine RBC (Auto) 13 09/13/18 03:40 WBC RBC Hgb Hct MCV MCH MCHC RDW Plt Count Seg Neutrophils % Lymphocytes % Monocytes % Eosinophils % Basophils % Absolute Neutrophils Absolute Lymphocytes Absolute Monocytes Absolute Eosinophils Absolute Basophils Carbonic Acid HCO3/H2CO3 Ratio ABG pH ABG pCO2 ABG pO2 ABG HCO3 ABG O2 Saturation ABG Base Excess FiO2 Sodium 135.1 L Potassium 4.1 Chloride 94 L Carbon Dioxide 30 Anion Gap 11 BUN 34 H Creatinine 1.69 H Est GFR ( Amer) 50 L Est GFR (Non-Af Amer) 41 L Glucose 301 H Calcium 8.8 Total Bilirubin AST ALT Alkaline Phosphatase Total Protein Albumin TSH Urine Color Urine Appearance Urine pH Ur Specific [place] Urine Protein Urine Glucose (UA) Urine Ketones Urine Blood Urine Nitrite Ur Leukocyte Esterase Urine WBC (Auto) Urine RBC (Auto) 09/12/18 17:45 Troponin I < 0.012 NT-Pro-B Natriuret Pep 798 Impressions: Chest X-Ray 09/12/18 16:41 IMPRESSION: Minimal diffuse interstitial pulmonary opacity, likely edema in the setting of cardiomegaly. There is no focal airspace opacity. Assessment and Plan - Diagnosis (1) Atypical pneumonia Is this a current diagnosis for this admission?: Yes Plan: Pneumonia care set deployed, azithromycin and Rocephin initiated. Albuterol and Atrovent, incentive spirometry and BiPAP. Follow-up CBC and blood culture (2) Urinary tract infection Is this a current diagnosis for this admission?: Yes Plan: Rocephin initiated follow-up CBC blood and urine culture (3) Acute renal failure Is this a current diagnosis for this admission?: Yes Plan: Somewhat prerenal, cautiously resume diuretics. Consider 2D echo, follow-up chemistry (4) Morbid obesity with alveolar hypoventilation Is this a current diagnosis for this admission?: Yes Plan: Avoid sedation, BiPAP while sleeping (5) Schizo-affective schizophrenia Is this a current diagnosis for this admission?: Yes Plan: Multiple nursing complaints of inappropriate innuendo and chatter. Patient warned this behavior would not be tolerated. Resume outpatient regiment with antipsychotic PRN - Time Time Spent with patient: 35 or more minutes - Inpatient Certification Medical Necessity: Need Close Monitoring Due to Risk of Patient Decompensation
[2018-09-13] MEDS: ASPIRIN 81 MG TABLET, ENT COATED PO SCH (09:42)
[2018-09-13] MEDS: APIXABAN 5 MG TABLET PO SCH ×2 (09:42→17:36)
[2018-09-13] MEDS: CARVEDILOL 12.5 MG TABLET PO SCH ×2 (09:43→21:33)
[2018-09-13] MEDS: ARIPIPRAZOLE 5 MG TABLET PO SCH (09:43)
[2018-09-13] MEDS: BUMETANIDE 1 MG TABLET PO SCH ×2 (09:43→17:36)
[2018-09-13] MEDS ORDERED: CEFTRIAXONE 1 GM/D5W RTU 1 GM/50 ML RTUPB IV SCH (10:00)
[2018-09-13] MEDS: FLUTICASONE/VILANTEROL 200-25 MCG/DOSE IH SCH (10:08)
[2018-09-13] MEDS: CITALOPRAM HYDROBROMIDE 20 MG TABLET PO SCH (12:17)
[2018-09-13] MEDS ORDERED: DEXTROSE 40% GEL 15 GM TUBE PO PRN ×2 (16:47)
[2018-09-13] MEDS ORDERED: DEXTROSE 50%-WATER 25 GM/50 ML DISP.SYRIN IV PRN ×2 (16:47)
[2018-09-13] MEDS ORDERED: GLUCAGON,HUMAN RECOMB 1 MG INJ IM PRN (16:47)
[2018-09-13] MEDS ORDERED: FLUTICASONE/VILANTEROL 200-25 MCG/DOSE IH SCH (17:00)
[2018-09-13] MEDS ORDERED: INSULIN LISPRO 100 UNIT/ML 3 ML VIAL SUBCUT ONE (17:30)
[2018-09-13] MEDS: CALCIUM CARBONATE 250 MG/VITAMIN D3 125 UNIT TABLET PO SCH (17:36)
[2018-09-13] MEDS: POTASSIUM CHLORIDE 10 MEQ CAPSULE.ER PO SCH (17:36)
[2018-09-13] MEDS ORDERED: CEFTRIAXONE 1 GM/D5W RTU 1 GM/50 ML RTUPB IV ONE (17:44)
[2018-09-13] MEDS ORDERED: ZIPRASIDONE HCL 60 MG CAPSULE PO ONE (17:46)
[2018-09-13] MEDS: ZIPRASIDONE HCL 60 MG CAPSULE PO SCH (17:54)
[2018-09-13] MEDS: CEFTRIAXONE 1 GM/D5W RTU 1 GM/50 ML RTUPB IV SCH (17:55)
[2018-09-13] MEDS ORDERED: (PENDING PHARMACY ID) (Vitamin B Complex [Vitamin B Complex] 1 EACH) PO SCH (18:00)
[2018-09-13] MEDS ORDERED: APIXABAN 5 MG TABLET PO SCH (18:00)
--- NOTE | 2018-09-13 18:29 | PDOC PROGRESS REPORT ---
Subjective Progress Note for:: 09/13/18 Subjective:: KI DAVIS JR is a 62 year old male with a past medical history of diabetes, congestive heart failure, DVT on Eliquis, schizophrenia, morbid obesity, hypoventilation syndrome and obstructive sleep apnea who was admitted 09/12/2018 with atypical pneumonia, urinary tract infection. Patient was seen on morning rounds. He was found sitting up to the edge of the bed comfortably on room air. He reports that he is feeling much better as compared to yesterday with decrease dyspnea, orthopnea, and dependent edema. He further denies fever, chills, chest pain, palpitations, cough, abdominal pain, nausea and vomiting. He has no specific questions or concerns at this time. Nursing advises the patient is insulin-dependent; insulin order set with hypoglycemia protocol placed. Reason For Visit: PNEUMONIA,UTI Physical Exam Vital Signs: Temp Pulse Resp BP Pulse Ox 98.3 F 79 18 126/79 H 95 09/13/18 16:00 09/13/18 16:00 09/13/18 16:00 09/13/18 16:00 09/13/18 16:00 Intake & Output 09/12/18 09/13/18 09/14/18 06:59 06:59 06:59 Intake Total 1125 1602 Output Total 600 Balance 525 1602 Weight 193.1 kg General appearance: PRESENT: no acute distress, disheveled, morbidly obese, well-developed, well-nourished Head exam: PRESENT: atraumatic, normocephalic Eye exam: PRESENT: conjunctiva pink, EOMI, PERRLA. ABSENT: scleral icterus Ear exam: PRESENT: normal external ear exam Mouth exam: PRESENT: moist, tongue midline Neck exam: ABSENT: carotid bruit, JVD, lymphadenopathy, thyromegaly Respiratory exam: PRESENT: clear to auscultation katie, decreased breath sounds - Throughout; secondary to body habitus and poor inspiratory effort, prolonged expiratory phas, symmetrical, unlabored. ABSENT: rales, rhonchi, wheezes Cardiovascular exam: PRESENT: RRR. ABSENT: diastolic murmur, rubs, systolic murmur Pulses: PRESENT: normal dorsalis pedis pul Vascular exam: PRESENT: normal capillary refill GI/Abdominal exam: PRESENT: normal bowel sounds, soft. ABSENT: distended, guarding, mass, organolmegaly, rebound, tenderness Rectal exam: PRESENT: deferred Extremities exam: PRESENT: full ROM, pedal edema - +1 bilaterally. ABSENT: calf tenderness, clubbing Neurological exam: PRESENT: alert, awake, oriented to person, oriented to place, oriented to time, oriented to situation, CN II-XII grossly intact. ABSENT: motor sensory deficit Psychiatric exam: PRESENT: normal mood, unusual affect. ABSENT: homicidal ideation, suicidal ideation Skin exam: PRESENT: dry, intact, warm. ABSENT: cyanosis, rash Results Laboratory Results: 09/13/18 03:40 09/13/18 03:40 09/12/18 09/12/18 09/12/18 17:45 17:45 21:09 WBC RBC Hgb Hct MCV MCH MCHC RDW Plt Count Seg Neutrophils % Lymphocytes % Monocytes % Eosinophils % Basophils % Absolute Neutrophils Absolute Lymphocytes Absolute Monocytes Absolute Eosinophils Absolute Basophils Carbonic Acid 1.32 HCO3/H2CO3 Ratio 22:1 ABG pH 7.45 ABG pCO2 43.9 ABG pO2 61.8 L ABG HCO3 29.7 H ABG O2 Saturation 92.5 L ABG Base Excess 5.0 FiO2 24% Sodium 132.9 L Potassium 4.7 Chloride 92 L Carbon Dioxide 29 Anion Gap 12 BUN 33 H Creatinine 1.96 H Est GFR ( Amer) 42 L Est GFR (Non-Af Amer) 35 L Glucose 390 H Calcium 9.2 Total Bilirubin 0.5 AST 15 L ALT 24 Alkaline Phosphatase 102 Total Protein 6.6 Albumin 3.4 L TSH 0.88 Urine Color Urine Appearance Urine pH Ur Specific [place] Urine Protein Urine Glucose (UA) Urine Ketones Urine Blood Urine Nitrite Ur Leukocyte Esterase Urine WBC (Auto) Urine RBC (Auto) 09/12/18 09/13/18 09/13/18 21:12 03:40 03:40 WBC 10.0 RBC 4.17 L Hgb 12.0 L Hct 35.2 L MCV 84 MCH 28.9 MCHC 34.2 RDW 14.8 H Plt Count 305 Seg Neutrophils % 81.9 H Lymphocytes % 7.9 L Monocytes % 8.7 Eosinophils % 1.0 Basophils % 0.5 Absolute Neutrophils 8.2 Absolute Lymphocytes 0.8 Absolute Monocytes 0.9 Absolute Eosinophils 0.1 Absolute Basophils 0.0 Carbonic Acid HCO3/H2CO3 Ratio ABG pH ABG pCO2 ABG pO2 ABG HCO3 ABG O2 Saturation ABG Base Excess FiO2 Sodium 135.1 L Potassium 4.1 Chloride 94 L Carbon Dioxide 30 Anion Gap 11 BUN 34 H Creatinine 1.69 H Est GFR ( Amer) 50 L Est GFR (Non-Af Amer) 41 L Glucose 301 H Calcium 8.8 Total Bilirubin AST ALT Alkaline Phosphatase Total Protein Albumin TSH Urine Color YELLOW Urine Appearance CLOUDY Urine pH 5.0 Ur Specific [place] 1.013 Urine Protein 30 H Urine Glucose (UA) NEGATIVE Urine Ketones NEGATIVE Urine Blood SMALL H Urine Nitrite NEGATIVE Ur Leukocyte Esterase LARGE H Urine WBC (Auto) >182 Urine RBC (Auto) 13 09/12/18 17:45 Troponin I < 0.012 NT-Pro-B Natriuret Pep 798 Impressions: Chest X-Ray 09/12/18 16:41 IMPRESSION: Minimal diffuse interstitial pulmonary opacity, likely edema in the setting of cardiomegaly. There is no focal airspace opacity. Assessment and Plan - Diagnosis (1) Atypical pneumonia Is this a current diagnosis for this admission?: Yes Plan: Patient is admitted to the medical floor on continuous cardiac telemetry. Blood and sputum cultures are pending. Empirically placed on IV azithromycin and Rocephin. Supplemental oxygen BiPAP as needed. Scheduled and as needed nebulizer treatments. Mucinex twice daily. Incentive spirometer and flutter valve to bedside. (2) Acute renal failure Is this a current diagnosis for this admission?: Yes Plan: Baseline creatinine of 0.86; admitted with a creatinine of 1.96. This is improved slightly to 1.69. Acute renal failure likely secondary to CHF exacerbation. Will optimize cardiac medications as below. Daily weights with strict I&O's. Daily chemistries. Avoid nephrotoxic medications as able. (3) Urinary tract infection Is this a current diagnosis for this admission?: Yes Plan: Urine culture has no growth at 1 day. Continue IV Rocephin. (4) Schizo-affective schizophrenia Is this a current diagnosis for this admission?: Yes Plan: Continue home dose Celexa and Geodon. Continue Abilify. (5) Morbid obesity with BMI of 50.0-59.9, adult Is this a current diagnosis for this admission?: Yes Plan: Dietary discretion is advised. He is placed on a cardiac and consistent carb diet. Registered dietitian is consulted. (6) Morbid obesity with alveolar hypoventilation Is this a current diagnosis for this admission?: Yes Plan: TSH is normal. Avoid sedation, BiPAP while sleeping - Time Time Spent with patient: 15-24 minutes Medications reviewed and adjusted accordingly: Yes Anticipated discharge: Home Within: within 72 hours
[2018-09-13] MEDS: AZITHROMYCIN 500 MG in DEXTROSE 5%-WATER 250 ML IV SCH (21:32)
[2018-09-13] MEDS: NIFEDIPINE 30 MG TAB.ER.24 PO SCH (21:32)
[2018-09-13] MEDS: INSULIN LISPRO 100 UNIT/ML 3 ML VIAL SUBCUT SCH (21:34)
[2018-09-13] MEDS: HYDRALAZINE HCL 50 MG TABLET PO SCH (21:34)
[2018-09-13] MEDS ORDERED: CARVEDILOL 12.5 MG TABLET PO SCH (22:00)
[2018-09-13] MEDS: FLUTICASONE NASAL SPRAY 50 MCG/SPRY 120 SPRAY/16 GM NASL SCH (23:18)
[2018-09-14] MEDS: IPRATROPIUM/ALBUTEROL 0.5-2.5 MG/3 ML AMPUL NEB SCH ×4 (00:08→23:46)
[2018-09-14 05:14] LABS: HEMATOCRIT 35.4 % (37.9-51.0); HEMOGLOBIN 11.9 g/dL (13.5-17.0); MEAN CORPUSCULAR HEMOGLOBIN 28.3 pg (27.0-33.4); MEAN CORPUSCULAR HGB CONC 33.6 g/dL (32.0-36.0); MEAN CORPUSCULAR VOLUME 84 fl (80-97); PLATELET COUNT 316 10^3/uL (150-450); RED CELL DISTRIBUTION WIDTH 14.8 % (11.5-14.0); WHITE BLOOD COUNT 8.3 10^3/uL (4.0-10.5)
[2018-09-14 05:36] LABS: ANION GAP 9 (5-19); BLOOD UREA NITROGEN 25 mg/dL (7-20); CALCIUM 8.7 mg/dL (8.4-10.2); CARBON DIOXIDE 31 mmol/L (22-30); CHLORIDE 98 mmol/L (98-107); GLUCOSE 261 mg/dL (75-110); POTASSIUM 4.3 mmol/L (3.6-5.0); SODIUM 137.9 mmol/L (137-145)
[2018-09-14] MEDS: INSULIN LISPRO 100 UNIT/ML 3 ML VIAL SUBCUT SCH ×4 (08:24→22:19)
[2018-09-14] MEDS: CALCIUM CARBONATE 250 MG/VITAMIN D3 125 UNIT TABLET PO SCH ×2 (09:15→17:24)
[2018-09-14] MEDS: ASPIRIN 81 MG TABLET, ENT COATED PO SCH (09:15)
[2018-09-14] MEDS: MULTIVITAMIN TABLET PO SCH (09:15)
[2018-09-14] MEDS: POTASSIUM CHLORIDE 10 MEQ CAPSULE.ER PO SCH ×2 (09:15→17:23)
[2018-09-14] MEDS: HYDRALAZINE HCL 50 MG TABLET PO SCH ×2 (09:15→22:17)
[2018-09-14] MEDS: APIXABAN 5 MG TABLET PO SCH ×2 (09:16→17:23)
[2018-09-14] MEDS: BUMETANIDE 1 MG TABLET PO SCH ×2 (09:16→17:23)
[2018-09-14] MEDS: NIFEDIPINE 30 MG TAB.ER.24 PO SCH ×2 (09:16→22:17)
[2018-09-14] MEDS: ARIPIPRAZOLE 5 MG TABLET PO SCH (09:17)
[2018-09-14] MEDS: CARVEDILOL 12.5 MG TABLET PO SCH ×2 (09:17→22:18)
[2018-09-14] MEDS: FLUTICASONE NASAL SPRAY 50 MCG/SPRY 120 SPRAY/16 GM NASL SCH ×2 (09:18→22:28)
[2018-09-14] MEDS: FLUTICASONE/VILANTEROL 200-25 MCG/DOSE IH SCH (09:19)
[2018-09-14] MEDS: CITALOPRAM HYDROBROMIDE 20 MG TABLET PO SCH (12:00)
--- NOTE | 2018-09-14 13:41 | PDOC PROGRESS REPORT ---
Subjective Progress Note for:: 09/14/18 Subjective:: KI DAVIS JR is a 62 year old male with a past medical history of diabetes, congestive heart failure, DVT on Eliquis, schizophrenia, morbid obesity, hypoventilation syndrome and obstructive sleep apnea who was admitted 09/12/2018 with atypical pneumonia, urinary tract infection. Patient was seen on morning rounds. He was found sitting up to the edge of the bed comfortably on room air. He reports that he is feeling much better and asks about timing for discharge to home. He denies fever, chills, chest pain, palpitations, dyspnea, orthopnea, cough, abdominal pain, nausea and vomiting. He does continue to have BLE edema. He reports he has been ambulating in the halls without difficulty. He has no other questions or concerns at this time. No concerns per nursing. Reason For Visit: PNEUMONIA,UTI Physical Exam Vital Signs: Temp Pulse Resp BP Pulse Ox 99.0 F 81 18 153/71 H 99 09/14/18 12:00 09/14/18 12:00 09/14/18 12:00 09/14/18 12:00 09/14/18 12:00 Intake & Output 09/13/18 09/14/18 09/15/18 06:59 06:59 06:59 Intake Total 1125 2672 Output Total 600 Balance 525 2672 Weight 193.1 kg 195.9 kg General appearance: PRESENT: no acute distress, disheveled, morbidly obese, well-developed, well-nourished Head exam: PRESENT: atraumatic, normocephalic Eye exam: PRESENT: conjunctiva pink, EOMI, PERRLA. ABSENT: scleral icterus Mouth exam: PRESENT: moist, tongue midline Neck exam: ABSENT: carotid bruit, JVD, lymphadenopathy, thyromegaly Respiratory exam: PRESENT: clear to auscultation katie, decreased breath sounds - Throughout; secondary to body habitus and poor respiratory effort, prolonged expiratory phas, symmetrical, unlabored. ABSENT: rales, rhonchi, wheezes Cardiovascular exam: PRESENT: RRR. ABSENT: diastolic murmur, rubs, systolic murmur Pulses: PRESENT: normal dorsalis pedis pul Vascular exam: PRESENT: normal capillary refill GI/Abdominal exam: PRESENT: normal bowel sounds, soft. ABSENT: distended, guarding, mass, organolmegaly, rebound, tenderness Rectal exam: PRESENT: deferred Extremities exam: PRESENT: full ROM, pedal edema - +1 bilaterally. ABSENT: calf tenderness, clubbing Neurological exam: PRESENT: alert, awake, oriented to person, oriented to place, oriented to time, oriented to situation, CN II-XII grossly intact. ABSENT: motor sensory deficit Psychiatric exam: PRESENT: normal mood, unusual affect. ABSENT: homicidal ideation, suicidal ideation Skin exam: PRESENT: dry, intact, warm. ABSENT: cyanosis, rash Results Laboratory Results: 09/14/18 04:01 09/14/18 04:01 09/14/18 09/14/18 04:01 04:01 WBC 8.3 RBC 4.20 L Hgb 11.9 L Hct 35.4 L MCV 84 MCH 28.3 MCHC 33.6 RDW 14.8 H Plt Count 316 Sodium 137.9 Potassium 4.3 Chloride 98 Carbon Dioxide 31 H Anion Gap 9 BUN 25 H Creatinine 1.50 H Est GFR ( Amer) 57 L Est GFR (Non-Af Amer) 47 L Glucose 261 H Calcium 8.7 09/12/18 22:29 Clean Catch Midstream Urine Culture - Final NO GROWTH 2 DAYS 09/12/18 17:45 Troponin I < 0.012 NT-Pro-B Natriuret Pep 798 Impressions: Chest X-Ray 09/12/18 16:41 IMPRESSION: Minimal diffuse interstitial pulmonary opacity, likely edema in the setting of cardiomegaly. There is no focal airspace opacity. Assessment and Plan - Diagnosis (1) Atypical pneumonia Is this a current diagnosis for this admission?: Yes Plan: Improved; patient denies symptoms; ambulatory on room air, WBCs are normal, and afebrile (T-max 99.2 last 24 hours). Sputum culture is pending; patient states he does not have a productive cough. Blood cultures negative at 24 hours. Patient is admitted to the medical floor on continuous cardiac telemetry. Empirically placed on IV azithromycin and Rocephin; Rocephin is discontinued today and IV azithromycin changed to p.o. Supplemental oxygen BiPAP as needed. Scheduled and as needed nebulizer treatments. Mucinex twice daily. Incentive spirometer and flutter valve to bedside. (2) Acute renal failure Is this a current diagnosis for this admission?: Yes Plan: Baseline creatinine of 0.86; admitted with a creatinine of 1.96. Continues to improve; Cr 1.96-> 1.69-> 1.50 Acute renal failure likely secondary to CHF exacerbation. Will optimize cardiac medications as below. Daily weights with strict I&O's. Daily chemistries. Avoid nephrotoxic medications as able. (3) Urinary tract infection Is this a current diagnosis for this admission?: Yes Plan: Ruled out. Final urine culture has no growth IV Rocephin is discontinued. (4) Schizo-affective schizophrenia Is this a current diagnosis for this admission?: Yes Plan: Continue home dose Celexa and Geodon. Continue Abilify. (5) Morbid obesity with BMI of 50.0-59.9, adult Is this a current diagnosis for this admission?: Yes Plan: Dietary discretion is advised. He is placed on a cardiac and consistent carb diet. Registered dietitian is consulted. (6) Morbid obesity with alveolar hypoventilation Is this a current diagnosis for this admission?: Yes Plan: TSH is normal. Avoid sedation, BiPAP while sleeping - Time Time Spent with patient: 15-24 minutes Medications reviewed and adjusted accordingly: Yes Anticipated discharge: Home Within: within 24 hours - Pending creatinine; ARMEN nearly resolved.
[2018-09-14] MEDS: ZIPRASIDONE HCL 60 MG CAPSULE PO SCH (17:25)
[2018-09-14] MEDS: AZITHROMYCIN 250 MG TABLET PO SCH (22:17)
[2018-09-15 06:03] LABS: ANION GAP 7 (5-19); BLOOD UREA NITROGEN 20 mg/dL (7-20); CALCIUM 9.2 mg/dL (8.4-10.2); CARBON DIOXIDE 34 mmol/L (22-30); CHLORIDE 100 mmol/L (98-107); GLUCOSE 161 mg/dL (75-110); POTASSIUM 4.2 mmol/L (3.6-5.0); SODIUM 140.7 mmol/L (137-145)
[2018-09-15 06:05] LABS: HEMATOCRIT 40.4 % (37.9-51.0); HEMOGLOBIN 13.7 g/dL (13.5-17.0); MEAN CORPUSCULAR HEMOGLOBIN 28.7 pg (27.0-33.4); MEAN CORPUSCULAR VOLUME 84 fl (80-97); PLATELET COUNT 273 10^3/uL (150-450); RED BLOOD COUNT 4.79 10^6/uL (4.35-5.55); WHITE BLOOD COUNT 7.3 10^3/uL (4.0-10.5)
[2018-09-15] MEDS: IPRATROPIUM/ALBUTEROL 0.5-2.5 MG/3 ML AMPUL NEB SCH ×3 (07:32→23:53)
[2018-09-15] MEDS: INSULIN LISPRO 100 UNIT/ML 3 ML VIAL SUBCUT SCH ×4 (08:28→21:16)
[2018-09-15] MEDS: MULTIVIT-STRESS FORMULA/ZINC TABLET PO SCH (09:17)
[2018-09-15] MEDS: NIFEDIPINE 30 MG TAB.ER.24 PO SCH ×2 (09:17→21:14)
[2018-09-15] MEDS: ASPIRIN 81 MG TABLET, ENT COATED PO SCH (09:18)
[2018-09-15] MEDS: CALCIUM CARBONATE 250 MG/VITAMIN D3 125 UNIT TABLET PO SCH ×2 (09:18→17:27)
[2018-09-15] MEDS: FLUTICASONE NASAL SPRAY 50 MCG/SPRY 120 SPRAY/16 GM NASL SCH ×2 (09:18→21:15)
[2018-09-15] MEDS: POTASSIUM CHLORIDE 10 MEQ CAPSULE.ER PO SCH ×2 (09:18→17:27)
[2018-09-15] MEDS: HYDRALAZINE HCL 50 MG TABLET PO SCH ×2 (09:18→21:15)
[2018-09-15] MEDS: BUMETANIDE 1 MG TABLET PO SCH ×2 (09:19→17:28)
[2018-09-15] MEDS: FLUTICASONE/VILANTEROL 200-25 MCG/DOSE IH SCH (09:19)
[2018-09-15] MEDS: CARVEDILOL 12.5 MG TABLET PO SCH ×2 (09:19→21:14)
[2018-09-15] MEDS: MULTIVITAMIN TABLET PO SCH (09:19)
[2018-09-15] MEDS: APIXABAN 5 MG TABLET PO SCH ×2 (09:20→17:28)
[2018-09-15] MEDS: ARIPIPRAZOLE 5 MG TABLET PO SCH (09:20)
[2018-09-15] MEDS: CITALOPRAM HYDROBROMIDE 20 MG TABLET PO SCH (12:23)
--- NOTE | 2018-09-15 15:14 | PDOC PROGRESS REPORT ---
Subjective Progress Note for:: 09/15/18 Subjective:: 62 year old male with a past medical history of diabetes, congestive heart failure, DVT on Eliquis, schizophrenia, morbid obesity, hypoventilation syndrome and obstructive sleep apnea who was admitted 09/12/2018 with atypical pneumonia, urinary tract infection. Patient was seen on morning rounds. He was found sitting up to the edge of the bed comfortably on room air. He reports that he is feeling much better and asks about timing for discharge to home. He denies fever, chills, chest pain, palpitations, dyspnea, orthopnea, cough, abdominal pain, nausea and vomiting. He does continue to have BLE edema. He reports he has been ambulating in the halls without difficulty. He has no other questions or concerns at this time. No concerns per nursing. 09/15/[id number]-yqzh-old male with history of morbid obesity with hypoventilation syndrome and obstructive sleep apnea, DVT on Eliquis, schizophrenia, congestive heart failure, diabetes mellitus admitted on 09/12/2018 with atypical pneumonia and UTI. Patient is comfortable in the bed using the CPAP machine. Requesting physical therapy and home health. Other than that he said he is doing well. Reason For Visit: PNEUMONIA,UTI Physical Exam Vital Signs: Temp Pulse Resp BP Pulse Ox 98.3 F 66 16 134/72 H 100 09/15/18 12:00 09/15/18 12:00 09/15/18 12:00 09/15/18 12:00 09/15/18 12:00 Intake & Output 09/14/18 09/15/18 09/16/18 06:59 06:59 06:59 Intake Total 2672 1400 Balance 2672 1400 Weight 195.9 kg 194.7 kg General appearance: PRESENT: morbidly obese Head exam: PRESENT: atraumatic Eye exam: PRESENT: PERRLA Mouth exam: PRESENT: dry mucosa Teeth exam: PRESENT: poor dentation Neck exam: ABSENT: carotid bruit, JVD, lymphadenopathy, thyromegaly Respiratory exam: PRESENT: decreased breath sounds Cardiovascular exam: PRESENT: RRR. ABSENT: diastolic murmur, rubs, systolic murmur GI/Abdominal exam: PRESENT: normal bowel sounds, soft. ABSENT: distended, guarding, mass, organolmegaly, rebound, tenderness Rectal exam: PRESENT: deferred Extremities exam: PRESENT: other - Chronic changes in the lower extremities present. Neurological exam: PRESENT: alert, awake, oriented to person, oriented to place, oriented to time, oriented to situation, CN II-XII grossly intact. ABSENT: motor sensory deficit Psychiatric exam: PRESENT: appropriate affect, normal mood. ABSENT: homicidal ideation, suicidal ideation Results Laboratory Results: 09/15/18 05:34 09/15/18 05:34 09/15/18 09/15/18 05:34 05:34 WBC 7.3 RBC 4.79 Hgb 13.7 Hct 40.4 MCV 84 MCH 28.7 MCHC 34.0 RDW 15.0 H Plt Count 273 Sodium 140.7 Potassium 4.2 Chloride 100 Carbon Dioxide 34 H Anion Gap 7 BUN 20 Creatinine 1.36 H Est GFR ( Amer) > 60 Est GFR (Non-Af Amer) 53 L Glucose 161 H Calcium 9.2 09/12/18 17:45 Troponin I < 0.012 NT-Pro-B Natriuret Pep 798 Impressions: Chest X-Ray 09/12/18 16:41 IMPRESSION: Minimal diffuse interstitial pulmonary opacity, likely edema in the setting of cardiomegaly. There is no focal airspace opacity. Assessment and Plan - Diagnosis (1) Atypical pneumonia Is this a current diagnosis for this admission?: Yes Plan: Improved; patient denies symptoms; ambulatory on room air, WBCs are normal, and afebrile (T-max 99.2 last 24 hours). Sputum culture is pending; patient states he does not have a productive cough. Blood cultures negative at 24 hours. Patient is admitted to the medical floor on continuous cardiac telemetry. Empirically placed on IV azithromycin and Rocephin; Rocephin is discontinued today and IV azithromycin changed to p.o. Supplemental oxygen BiPAP as needed. Scheduled and as needed nebulizer treatments. Mucinex twice daily. Incentive spirometer and flutter valve to bedside. 09/14/2018-morbidly obese male comfortably in the bed CPAP. WBC count is 7300 within normal limits. T-max is 98.3. Blood cultures are negative urine cultures are negative. Plan is to continue incentive spirometry and flutter valve therapy, scheduled and as needed nebulizations. (2) Acute renal failure Is this a current diagnosis for this admission?: Yes Plan: Baseline creatinine of 0.86; admitted with a creatinine of 1.96. Continues to improve; Cr 1.96-> 1.69-> 1.50 Acute renal failure likely secondary to CHF exacerbation. Will optimize cardiac medications as below. Daily weights with strict I&O's. Daily chemistries. Avoid nephrotoxic medications as able. 09/15/2018-patient admitted with acute renal failure and baseline creatinine is around 0.8 at the time of admission it was 1.96. Latest creatinine is 1.36 continue to improve. Acute renal failure may be secondary to prerenal causes. Requested the nurse to document strict input output chart. (3) Urinary tract infection Is this a current diagnosis for this admission?: Yes Plan: Ruled out. Final urine culture has no growth IV Rocephin is discontinued. 09/15/2018-UTI is resolved urine cultures are negative. (4) Schizo-affective schizophrenia Is this a current diagnosis for this admission?: Yes Plan: Continue home dose Celexa and Geodon. Continue Abilify. 09/15/2018-patient has history of schizoaffective disorder presently on Celexa and Geodon and Abilify. (5) Morbid obesity with BMI of 50.0-59.9, adult Is this a current diagnosis for this admission?: Yes Plan: Dietary discretion is advised. He is placed on a cardiac and consistent carb diet. Registered dietitian is consulted. 09/15/2018-patient's BMI is 58. Diet exercise weight loss lifestyle modifications are discussed with the patient. (6) Morbid obesity with alveolar hypoventilation Is this a current diagnosis for this admission?: Yes Plan: TSH is normal. Avoid sedation, BiPAP while sleeping 09/15/2018-patient is presently using BiPAP while sleeping. Plan is to continue the same with treatment.
[2018-09-15] MEDS: OMEGA-3 ACID ETHYL ESTERS 1 GM CAPSULE PO SCH (17:27)
[2018-09-15] MEDS: ZIPRASIDONE HCL 60 MG CAPSULE PO SCH (17:28)
[2018-09-15] MEDS: AZITHROMYCIN 250 MG TABLET PO SCH (21:15)
[2018-09-15] MEDS ORDERED: DIPHENHYDRAMINE HCL 25 MG CAPSULE PO SCH (22:00)
[2018-09-15] MEDS ORDERED: (PENDING PHARMACY ID) (Difluprednate [Durezol] 1 DROP) OD SCH (22:00)
[2018-09-16] MEDS: IPRATROPIUM/ALBUTEROL 0.5-2.5 MG/3 ML AMPUL NEB SCH (07:47)
[2018-09-16] MEDS: INSULIN LISPRO 100 UNIT/ML 3 ML VIAL SUBCUT SCH ×2 (08:20→12:35)
[2018-09-16] MEDS: NIFEDIPINE 30 MG TAB.ER.24 PO SCH (09:33)
[2018-09-16] MEDS: OMEGA-3 ACID ETHYL ESTERS 1 GM CAPSULE PO SCH (09:34)
[2018-09-16] MEDS: FLUTICASONE NASAL SPRAY 50 MCG/SPRY 120 SPRAY/16 GM NASL SCH (09:34)
[2018-09-16] MEDS: HYDRALAZINE HCL 50 MG TABLET PO SCH (09:35)
[2018-09-16] MEDS: CARVEDILOL 12.5 MG TABLET PO SCH (09:35)
[2018-09-16] MEDS: POTASSIUM CHLORIDE 10 MEQ CAPSULE.ER PO SCH (09:35)
[2018-09-16] MEDS: FLUTICASONE/VILANTEROL 200-25 MCG/DOSE IH SCH (09:35)
[2018-09-16] MEDS: ASPIRIN 81 MG TABLET, ENT COATED PO SCH (09:35)
[2018-09-16] MEDS: MULTIVIT-STRESS FORMULA/ZINC TABLET PO SCH (09:36)
[2018-09-16] MEDS: BUMETANIDE 1 MG TABLET PO SCH (09:36)
[2018-09-16] MEDS: MULTIVITAMIN TABLET PO SCH (09:36)
[2018-09-16] MEDS: APIXABAN 5 MG TABLET PO SCH (09:36)
[2018-09-16] MEDS: CALCIUM CARBONATE 250 MG/VITAMIN D3 125 UNIT TABLET PO SCH (09:36)
[2018-09-16] MEDS: ARIPIPRAZOLE 5 MG TABLET PO SCH (09:36)
--- NOTE | 2018-09-16 12:20 | PDOC DISCHARGE SUMMARY ---
General - Admit/Disc Date/PCP Admission Date/Primary Care Provider: 09/13/18 12:32 YOSI HIGHTOWER MD Discharge Date: 09/16/18 - Discharge Diagnosis (1) Atypical pneumonia Is this a current diagnosis for this admission?: Yes Summary: Improved; patient denies symptoms; ambulatory on room air, WBCs are normal, and afebrile (T-max 99.2 last 24 hours). Sputum culture is pending; patient states he does not have a productive cough. Blood cultures negative at 24 hours. Patient is admitted to the medical floor on continuous cardiac telemetry. Empirically placed on IV azithromycin and Rocephin; Rocephin is discontinued today and IV azithromycin changed to p.o. Supplemental oxygen BiPAP as needed. Scheduled and as needed nebulizer treatments. Mucinex twice daily. Incentive spirometer and flutter valve to bedside. 09/14/2018-morbidly obese male comfortably in the bed CPAP. WBC count is 7300 within normal limits. T-max is 98.3. Blood cultures are negative urine cultures are negative. Plan is to continue incentive spirometry and flutter valve therapy, scheduled and as needed nebulizations. 09/16/[id number]-gbhk-old male morbidly obese admitted with atypical pneumonia and h e has also has obesity associated hypoventilation syndrome he is still on CPAP. WBC count is 7.3 today stable. Pulse oxes are 2% on room air. Patient is going home on levo floxacillin 400 mg p.o. daily for 5 days. Patient is advised to follow-up with her primary care physician and also with the telecom network manager as an outpatient. The cultures are negative during the hospital stay. (2) Acute renal failure Is this a current diagnosis for this admission?: Yes Summary: Baseline creatinine of 0.86; admitted with a creatinine of 1.96. Continues to improve; Cr 1.96-> 1.69-> 1.50 Acute renal failure likely secondary to CHF exacerbation. Will optimize cardiac medications as below. Daily weights with strict I&O's. Daily chemistries. Avoid nephrotoxic medications as able. 09/15/2018-patient admitted with acute renal failure and baseline creatinine is around 0.8 at the time of admission it was 1.96. Latest creatinine is 1.36 continue to improve. Acute renal failure may be secondary to prerenal causes. Requested the nurse to document strict input output chart. 09/16/2018-patient was admitted with acute renal failure, baseline creatinine is around 0.8. Latest creatinine is 1.36 continue to show recovery. We will plan is to repeat the labs tomorrow but the patient is expressing desire to go home today. (3) Urinary tract infection Is this a current diagnosis for this admission?: Yes Summary: Ruled out. Final urine culture has no growth IV Rocephin is discontinued. 09/15/2018-UTI is resolved urine cultures are negative. (4) Schizo-affective schizophrenia Is this a current diagnosis for this admission?: Yes Summary: Continue home dose Celexa and Geodon. Continue Abilify. 09/15/2018-patient has history of schizoaffective disorder presently on Celexa and Geodon and Abilify. 09/16/2018-patient has history of seizure affective disorder presently on Celexa, Geodon and Abilify patient was advised to continue those medications except Celexa and follow-up with psychiatrist as an outpatient. (5) Morbid obesity with BMI of 50.0-59.9, adult Is this a current diagnosis for this admission?: Yes (6) Morbid obesity with alveolar hypoventilation Is this a current diagnosis for this admission?: Yes - Additional Information Resuscitation Status: Full Code Discharge Diet: Diabetic Discharge Activity: Activity As Tolerated Prescriptions: Levofloxacin 500 mg PO DAILY #5 ml Home Medications: Albuterol Sulfate [Proair HFA Inhalation Aerosol 8.5 gm MDI] 1 puff IH Q4HP PRN 09/13/18 Apixaban [Eliquis 5 mg Tablet] 5 mg PO BID 09/13/18 Aspirin [Ecotrin] 81 mg PO DAILY 09/13/18 Budesonide/Formoterol Fumarate [Symbicort HFA 160-4.5 mcg Inhaler 6 gm] 2 puff IH Q12 09/13/18 Bumetanide [Bumex 1 mg Tablet] 1 tab PO DAILY 09/13/18 Calcium Carbonate/Vitamin D3 [Calcium 500-Vit D3 400 Tablet] 1 each PO BID 09/13/18 Carvedilol [Coreg 25 mg Tablet] 1 tab PO Q12 09/13/18 Citalopram Hydrobromide [Celexa 20 mg Tablet] 20 mg PO DAILY 09/13/18 Difluprednate [Durezol] 1 drop OD QHS 09/13/18 Diphenhydramine HCl [Benadryl 25 mg Capsule] 25 mg PO QHS 09/13/18 Fluticasone Propionate [Flonase Nasal [place] 50 Mcg/[place] 16 gm] 2 sprays NASL Q12 09/13/18 Hydralazine HCl [Apresoline 50 mg Tablet] 50 mg PO Q12 09/13/18 Insulin Aspart [Novolog Insulin (Aspart) 100 unit/mL] 0 unit SUBCUT .SLD SCALE 09/13/18 Multivitamin [Tab-A-Landry (Multiple Vitamin) Tablet] 1 tab PO DAILY 09/13/18 Nepafenac [Ilevro] 1 drop OD DAILY 09/13/18 Nifedipine [Nifedipine ER] 90 mg PO Q12 09/13/18 [place]-3 Acid Ethyl Esters [Lovaza 1 gm Capsule] 3 gm PO BID 09/13/18 Potassium Chloride [Klor-Con 10 Meq Capsule ER] 30 meq PO BID 09/13/18 Vitamin B Complex 1 each PO BID 09/13/18 Ziprasidone HCl [Geodon 60 mg Capsule] 60 mg PO WSUPPER 09/13/18 Apixaban [Eliquis 5 mg Tablet] 2.5 mg PO BID tablet 09/16/18 Aspirin [Ecotrin 81 mg EC Tablet] 81 mg PO DAILY tabec 09/16/18 Bumetanide [Bumex 1 mg Tablet] 1 mg PO BID tablet 09/16/18 Levofloxacin 500 mg PO DAILY #5 ml 09/16/18 History of Present Illness History of Present Illness: KI DAVIS is a 62 year old male 62 year old male with a past medical history of diabetes, congestive heart failure, DVT on Eliquis, schizophrenia, morbid obesity will evaluate for metabol ic cause with evaluation of thyroid function and dietitian consultation, hypoventilation syndrome and obstructive sleep apnea. He presents with several days of shortness of breath with wheeze and a nonproductive cough prompting him to seek evaluation in the emergency room where he is found to have acute renal failure, urinary tract infection and atypical pneumonia with global wheeze, tachypnea, retractions with hypoxia with a PO2 of 61. He is started on oxygen, BiPAP and referred to the hospitalist for admission. He denies infectious contacts. Medications recently changed include a reduction of Bumex and Aldactone. Hospital Course Hospital Course: 32-year-old male with history of morbid obesity, hypoventilation syndrome admitted with atypical pneumonia and UTI UTI was ruled out he was treated with azithromycin presently afebrile pulse ox on room air is 100% no complications during the hospital stay patient requested for PT and home health does services are provided dietary consult also provided because of morbid obesity patient is expressing desire to go home today I strongly advised him to follow-up with primary care physician in 1 to 2 weeks time and also with the telecom network manager and psychiatrist to adjust her medications. Physical Exam Vital Signs: Temp Pulse Resp BP Pulse Ox 98.0 F 70 24 H 147/77 H 100 09/16/18 08:00 09/16/18 08:00 09/16/18 08:00 09/16/18 08:00 09/16/18 08:00 Intake & Output 09/15/18 09/16/18 09/17/18 06:59 06:59 06:59 Intake Total 1400 1868 Balance 1400 1868 Weight 194.7 kg 198.8 kg General appearance: PRESENT: morbidly obese Head exam: PRESENT: atraumatic Eye exam: PRESENT: PERRLA Mouth exam: PRESENT: moist, tongue midline Neck exam: ABSENT: carotid bruit, JVD, lymphadenopathy, thyromegaly Respiratory exam: PRESENT: decreased breath sounds Cardiovascular exam: PRESENT: RRR. ABSENT: diastolic murmur, rubs, systolic mur mur GI/Abdominal exam: PRESENT: normal bowel sounds, soft. ABSENT: distended, guarding, mass, organolmegaly, rebound, tenderness Rectal exam: PRESENT: deferred Extremities exam: PRESENT: full ROM. ABSENT: calf tenderness, clubbing, pedal edema Neurological exam: PRESENT: alert, awake, oriented to person, oriented to place, oriented to time, oriented to situation, CN II-XII grossly intact. ABSENT: motor sensory deficit Psychiatric exam: PRESENT: appropriate affect, normal mood. ABSENT: homicidal ideation, suicidal ideation Results Laboratory Results: 09/15/18 05:34 09/15/18 05:34 09/12/18 17:45 Troponin I < 0.012 NT-Pro-B Natriuret Pep 798 Impressions: Chest X-Ray 09/12/18 16:41 IMPRESSION: Minimal diffuse interstitial pulmonary opacity, likely edema in the setting of cardiomegaly. There is no focal airspace opacity. Qualifiers - * PATIENT BEING DISCHARGED WITH ANY OF THE FOLLOWING DIAGNOSIS: No VTE patient discharged on overlapping Therapy?: No Acute Heart Failure - Is this a Heart Failure Patient?: No
[2018-09-16] MEDS: CITALOPRAM HYDROBROMIDE 20 MG TABLET PO SCH (12:32)
[2018-09-16 12:46] VITALS: BP 125/66
== END 2018-09-16 13:19 | disposition home health service (06) | DRG 194 ==
LOC: ER 15:26 → EH 22:30 → 5 09-13 00:50 → OBSVTOIN 09-13 12:32
PROVIDERS: ADMIT Internal Medicine; ATTEND Internal Medicine
DX: J18.9 Pneumonia, unspecified organism (principal); Z68.43 Body mass index [BMI] 50.0-59.9, adult; E66.2 Morbid (severe) obesity with alveolar hypoventilation; N17.9 Acute kidney failure, unspecified; N39.0 Urinary tract infection, site not specified; E11.9 Type 2 diabetes mellitus without complications; F25.9 Schizoaffective disorder, unspecified; I11.0 Hypertensive heart disease with heart failure; I50.9 Heart failure, unspecified; J44.9 Chronic obstructive pulmonary disease, unspecified; Z79.01 Long term (current) use of anticoagulants; Z86.718 Personal history of other venous thrombosis and embolism; Z87.891 Personal history of nicotine dependence; Z79.4 Long term (current) use of insulin; Z79.82 Long term (current) use of aspirin; Z79.899 Other long term (current) drug therapy; Z88.0 Allergy status to penicillin; Z88.6 Allergy status to analgesic agent; Z88.8 Allergy status to other drugs, medicaments and biological substances
CPT/HCPCS: 36415; 71046; 80048; 80053; 81001; 82803; 82962; 83880; 84443; 84484; 85025; 85027; 87040; 87086; 93005; 93010; 94660; 96365; 96366; 96368; 96375; 99291; G0378; J0456; J0696; J1644; J1815; J1940; J3490; J7060; J7620

== ENCOUNTER 2018-10-05 14:28 | Emergency (ER) | payer MEDICARE, MEDICAID ==
--- NOTE | 2018-10-05 15:08 | RADIOLOGY REPORT (SQ) ---
EXAM DESCRIPTION: CHEST SINGLE VIEW COMPLETED DATE/TIME: 10/05/2018 2:48 pm REASON FOR STUDY: SOB COMPARISON: 09/12/2018 NUMBER OF VIEWS: One view. TECHNIQUE: Single frontal radiographic view of the chest acquired. LIMITATIONS: None. FINDINGS: LUNGS AND PLEURA: No opacities, masses or pneumothorax. No pleural effusion. MEDIASTINUM AND HILAR STRUCTURES: No masses or contour abnormality. HEART AND VASCULATURE: Cardiac enlargement. Vascular congestion. BONES: No acute findings. HARDWARE: None in the chest. OTHER: No other significant finding. IMPRESSION: CARDIAC ENLARGEMENT. VASCULAR CONGESTION. TECHNICAL DOCUMENTATION: JOB ID: [id number] [employer]- All Rights Reserved Reading location - IP/workstation name: [email or web address]
[2018-10-05 15:13] LABS: ABSOLUTE EOSINOPHILS # (AUTO) 0.3 10^3/uL (0.0-0.6); ABSOLUTE LYMPHOCYTES (AUTO) 0.9 10^3/uL (0.5-4.7); ABSOLUTE MONOCYTES (AUTO) 0.5 10^3/uL (0.1-1.4); ABSOLUTE NEUT (AUTO) 3.8 10^3/uL (1.7-8.2); BASOPHILS % (AUTO) 0.8 % (0-2); EOSINOPHILS % (AUTO) 4.7 % (0-6); HEMATOCRIT 35.8 % (37.9-51.0); HEMOGLOBIN 12.1 g/dL (13.5-17.0); LYMPHOCYTES % (AUTO) 17.3 % (13-45); MEAN CORPUSCULAR HEMOGLOBIN 28.8 pg (27.0-33.4); MEAN CORPUSCULAR HGB CONC 33.8 g/dL (32.0-36.0); MEAN CORPUSCULAR VOLUME 85 fl (80-97); MONOCYTES % (AUTO) 8.4 % (3-13); PLATELET COUNT 195 10^3/uL (150-450); RED CELL DISTRIBUTION WIDTH 15.6 % (11.5-14.0); SEGMENTED NEUTROPHILS % (AUTO) 68.8 % (42-78); TOTAL CELLS COUNTED % (AUTO) 100 %; WHITE BLOOD COUNT 5.5 10^3/uL (4.0-10.5)
[2018-10-05 15:35] LABS: ALANINE AMINOTRANSFERASE 39 U/L (21-72); ALBUMIN 3.8 g/dL (3.5-5.0); ALKALINE PHOSPHATASE 94 U/L (38-126); ANION GAP 6 (5-19); ASPARTATE AMINO TRANSFERASE 25 U/L (17-59); BILIRUBIN,DIRECT 0.3 mg/dL (0.0-0.4); BILIRUBIN,TOTAL 0.5 mg/dL (0.2-1.3); BLOOD UREA NITROGEN 17 mg/dL (7-20); CALCIUM 8.7 mg/dL (8.4-10.2); CARBON DIOXIDE 33 mmol/L (22-30); CHLORIDE 100 mmol/L (98-107); GLUCOSE 182 mg/dL (75-110); POTASSIUM 3.5 mmol/L (3.6-5.0); SODIUM 139.3 mmol/L (137-145); TOTAL PROTEIN 7.4 g/dL (6.3-8.2)
[2018-10-05 15:41] LABS: APPEARANCE,URINE CLEAR; BILIRUBIN,URINE NEGATIVE (NEGATIVE); COLOR,URINE STRAW; GLUCOSE, URINE NEGATIVE (NEGATIVE); KETONES,URINE NEGATIVE (NEGATIVE); LEUKOCYTE ESTERASE,URINE NEGATIVE (NEGATIVE); NITRITE,URINE NEGATIVE (NEGATIVE); PROTEIN,URINE NEGATIVE (NEGATIVE); URINE SPECIFIC GRAVITY 1.005; UROBILINOGEN,URINE NEGATIVE mg/dL (<2.0)
[2018-10-05 16:04] LABS: CREATINE KINASE 92 U/L (55-170)
[2018-10-05 16:18] LABS: NT PRO BNP 306 pg/mL (5-900)
[2018-10-05 16:19] LABS: TROPONIN I < 0.012 ng/mL
--- NOTE | 2018-10-05 16:39 | ER Document Report ---
Entered by AJITH SHARMA SCRIBE 10/05/18 1604 Acting as scribe for:JENNIFER JARA MD ED General - General Chief Complaint: Shortness Of Breath Stated Complaint: BREATHING PROBLEM Time Seen by Provider: 10/05/18 15:25 Primary Care Provider: YOSI HIGHTOWER MD [Primary Care Provider] - Follow up as needed Notes: Patient is a 62-year-old male presenting to the emergency department complaining of shortness of breath. Patient states that today he went to take a routine pulmonary function test. Patient states that he was diagnosed with bronchitis, ear infection, and a sore throat. Patient states that he was recently taking Rexulti and Klonopin, but he was taken off of them 2 months ago. Patient states that he has a prescription for Bumex, he takes 1 mg at midnight and 3 mg at noon. The patient is asking for an IV dose of Lasix. He comes here looking for that to solve his respiratory problems. He states that is what he usually gets and it helps. He was taken off Lasix sometime ago and takes Bumex daily. TRAVEL OUTSIDE OF THE [place] IN LAST 30 DAYS: No - Related Data Allergies/Adverse Reactions: benztropine [From Cogentin] Allergy (Severe, Verified 09/12/18 15:27) Anaphylaxis codeine [Codeine] Allergy (Severe, Verified 09/12/18 15:27) HYPERACTIVE Penicillins Allergy (Mild, Verified 09/12/18 15:27) RASH Past Medical History - General Information source: Patient - Social History Smoking Status: Former Smoker Cigarette use (# per day): No Chew tobacco use (# tins/day): No Frequency of alcohol use: None Drug Abuse: None Family History: COPD, Hypertension Patient has suicidal ideation: No Patient has homicidal ideation: No - Past Medical History Cardiac Medical History: Reports: Hx Congestive Heart Failure, Hx DVT, Hx Hypercholesterolemia, Hx Hypertension, Hx Pulmonary Embolism Pulmonary Medical History: Reports: Hx Asthma, Hx Bronchitis, Hx COPD, Hx Pneumonia, Hx Sleep Apnea Endocrine Medical History: Reports: Hx Diabetes Mellitus Type 2 GI Medical History: Reports: Hx Hiatal Hernia Musculoskeletal Medical History: Reports Hx Arthritis Psychiatric Medical History: Reports: Hx Anxiety, Hx Depression, Hx Post Traumatic Stress Disorder, Hx Schizoaffective Disorder, Hx Schizophrenia Traumatic Medical History: Reports: Hx Fractures Past Surgical History: Reports: Hx Abdominal Surgery - hernia repair, Hx Cardiac Catheterization - 30% blockage, Hx Genitourinary Surgery - VASECTOMY, Hx He rniorrhaphy, Hx Oral Surgery - TOOTH EXTRACTION, Hx Orthopedic Surgery - PLATE SCREWS DISC AND BONE GRAFT: NECK, Hx Tonsillectomy - Immunizations Hx Diphtheria, Pertussis, Tetanus Vaccination: No Hx Pneumococcal Vaccination: 04/07/09 Review of Systems - Review of Systems Constitutional: No symptoms reported EENT: No symptoms reported Cardiovascular: No symptoms reported Respiratory: See HPI, Short of breath Gastrointestinal: No symptoms reported Genitourinary: No symptoms reported Male Genitourinary: No symptoms reported Musculoskeletal: No symptoms reported Skin: No symptoms reported Hematologic/Lymphatic: No symptoms reported Neurological/Psychological: No symptoms reported -: Yes All other systems reviewed and negative Physical Exam - Vital signs Vitals: Pulse Ox 93 10/05/18 14:34 - Notes Notes: Physical Exam: General: Alert, morbidly obese. HEENT: Normocephalic. Atraumatic. PERRL. Extraocular movements intact. Posterior pharynx has some erythema, and slight edema to the uvula. The TMs are unremarkable appearing, however there is a fair amount of wax occluding the view for the most part on both sides. Neck: Supple. Non-tender. Respiratory:Faint expiratory wheezes, patient states that it is from his bronchitis. Cardiovascular: Regular rate and rhythm. Abdominal: Normal Inspection. Non-tender. No distension. Normal Bowel Sounds. Back: Non-tender. No deformity or step off. Extremities: Moves all four extremities. Upper extremities: Normal inspection. Normal ROM. Lower extremities: Lower extremities have chronic edema. Right lower extremity has more edema present. Bottom of patient's feet are black from walking around barefoot. Normal ROM. Neurological: Normal cognition. AAOx4. Normal speech. Psychological: Normal affect. Normal Mood. Skin: Warm. Dry. Normal color. Course - Re-evaluation Re-evalutation: 10/05/18 16:55 The patient's BNP is not elevated. Reviewing his lab work it never is. The patient's creatinine is around his baseline. I think it would be difficult to convince the patient he is okay to go home without giving him a dose of Lasix so he will be given a 20 mg dose of Lasix IV and discharged home. - Vital Signs Vital signs: Temp Pulse Resp BP Pulse Ox 98.1 F 143/66 H 93 10/05/18 16:01 10/05/18 16:01 10/05/18 14:34 - Laboratory Result Diagrams: 10/05/18 15:01 10/05/18 15:01 Laboratory results interpreted by me: 10/05/18 10/05/18 15:01 15:01 RBC 4.20 L Hgb 12.1 L Hct 35.8 L RDW 15.6 H Potassium 3.5 L Carbon Dioxide 33 H Glucose 182 H - Diagnostic Test Radiology reviewed: Image reviewed, Reports reviewed - Portable chest x-ray and this 440 pound patient is read as cardiomegaly with pulmonary vascular congestion. His BNP is actually quite low and I suspect the pulmonary vascular congestion read is related to his chest diameter and not due to engorged blood vessels. Discharge - Discharge Clinical Impression: Bronchitis, Sore throat, Earache Condition: Stable Disposition: HOME, SELF-CARE Additional Instructions: Bronchitis You have acute bronchitis. This disease is an infection or inflammation of the air passageways in your lungs. Symptoms usually include cough, low grade fever, shortness of breath, and wheezing. The cough usually persists for a couple of weeks. Most cases of bronchitis get better without antibiotics. We prescribe antibiotics when we believe bacteria are damaging your airways, or if there's high risk the bronchitis will worsen into pneumonia. Increase your fluid intake. A cool mist humidifier may make your lungs more comfortable. An expectorant (cough medicine that loosens phlegm) can help. If you smoke, STOP!!! Recovery from bronchitis can be somewhat slow, but you should see improvement within a day or two. Repeated episodes of bronchitis may result in lung damage -- for example, chronic bronchitis, recurrent pneumonias, or emphysema. Call the doctor if you develop increasing fever, shortness of breath, chest pain, bloody sputum, or otherwise worsen. If you have not improved at all after several days, contact the physician. Take the medications that were prescribed to you today in addition to your regular medications. Get plenty of rest. Follow-up with your doctor if not improving. RETURN TO THE EMERGENCY ROOM IF ANY NEW OR WORSENING SYMPTOMS. Referrals: YOSI HIGHTOWER MD [Primary Care Provider] - Follow up as needed Scribe Attestation: 10/05/18 16:57 I personally performed the services described in the documentation, reviewed and edited the documentation which was dictated to the scribe in my presence, and it accurately records my words and actions. I personally performed the services described in the documentation, reviewed and edited the documentation which was dictated to the scribe in my presence, and it accurately records my words and actions.
[2018-10-05] MEDS ORDERED: FUROSEMIDE INJ/PF 20 MG/2 ML SDV IV ONE (16:47)
[2018-10-05 17:33] VITALS: BP 151/86
--- NOTE | 2018-10-06 00:40 | EKG REPORT ---
SEVERITY:- NORMAL ECG - SINUS RHYTHM : Confirmed by: Ying Rubi 06-Oct-2018 00:39:13
== END 2018-10-05 17:30 | disposition home or self-care (01) ==
LOC: ER 14:28
DX: J40 Bronchitis, not specified as acute or chronic (principal); J02.9 Acute pharyngitis, unspecified; H92.09 Otalgia, unspecified ear; I50.9 Heart failure, unspecified; E66.01 Morbid (severe) obesity due to excess calories; E78.00 Pure hypercholesterolemia, unspecified; I11.0 Hypertensive heart disease with heart failure; E11.9 Type 2 diabetes mellitus without complications; Z88.0 Allergy status to penicillin; Z86.718 Personal history of other venous thrombosis and embolism; Z88.6 Allergy status to analgesic agent
CPT/HCPCS: 93005; 99285; 96374; 36415; 82550; 85025; 80053; 81001; 84484; 83880; 71045; 93010; J1940

== ENCOUNTER → 2018-10-14 | Outpatient (CLI) | payer MEDICARE, MEDICAID ==
[2018-10-14 15:48] LABS: ABSOLUTE BASOPHILS # (AUTO) 0.1 10^3/uL (0.0-0.2); ABSOLUTE EOSINOPHILS # (AUTO) 0.2 10^3/uL (0.0-0.6); ABSOLUTE LYMPHOCYTES (AUTO) 1.4 10^3/uL (0.5-4.7); ABSOLUTE MONOCYTES (AUTO) 0.4 10^3/uL (0.1-1.4); ABSOLUTE NEUT (AUTO) 4.7 10^3/uL (1.7-8.2); BASOPHILS % (AUTO) 0.8 % (0-2); EOSINOPHILS % (AUTO) 2.8 % (0-6); HEMATOCRIT 39.6 % (37.9-51.0); HEMOGLOBIN 13.3 g/dL (13.5-17.0); LYMPHOCYTES % (AUTO) 20.6 % (13-45); MEAN CORPUSCULAR HEMOGLOBIN 28.7 pg (27.0-33.4); MEAN CORPUSCULAR HGB CONC 33.7 g/dL (32.0-36.0); MEAN CORPUSCULAR VOLUME 85 fl (80-97); MONOCYTES % (AUTO) 6.6 % (3-13); PLATELET COUNT 230 10^3/uL (150-450); RED BLOOD COUNT 4.65 10^6/uL (4.35-5.55); RED CELL DISTRIBUTION WIDTH 16.4 % (11.5-14.0); SEGMENTED NEUTROPHILS % (AUTO) 69.2 % (42-78); TOTAL CELLS COUNTED % (AUTO) 100 %; WHITE BLOOD COUNT 6.7 10^3/uL (4.0-10.5)
[2018-10-14 15:48] LABS: APPEARANCE,URINE CLEAR; BILIRUBIN,URINE NEGATIVE (NEGATIVE); COLOR,URINE YELLOW; GLUCOSE, URINE NEGATIVE (NEGATIVE); KETONES,URINE NEGATIVE (NEGATIVE); LEUKOCYTE ESTERASE,URINE TRACE (NEGATIVE); NITRITE,URINE NEGATIVE (NEGATIVE); PROTEIN,URINE NEGATIVE (NEGATIVE); URINE SPECIFIC GRAVITY 1.006; UROBILINOGEN,URINE NEGATIVE mg/dL (<2.0)
[2018-10-14 16:14] LABS: ALANINE AMINOTRANSFERASE 31 U/L (21-72); ALBUMIN 4.1 g/dL (3.5-5.0); ALKALINE PHOSPHATASE 89 U/L (38-126); ANION GAP 8 (5-19); ASPARTATE AMINO TRANSFERASE 22 U/L (17-59); BILIRUBIN,DIRECT 0.3 mg/dL (0.0-0.4); BILIRUBIN,TOTAL 0.6 mg/dL (0.2-1.3); BLOOD UREA NITROGEN 20 mg/dL (7-20); CALCIUM 8.9 mg/dL (8.4-10.2); CARBON DIOXIDE 30 mmol/L (22-30); CHLORIDE 103 mmol/L (98-107); CHOLESTEROL 187.89 mg/dL (0-200); GLUCOSE 123 mg/dL (75-110); SODIUM 141.4 mmol/L (137-145); TRIGLYCERIDES 146 mg/dL (<150)
[2018-10-14 16:25] LABS: DIRECT LDL 119 mg/dL (<100)
[2018-10-16 12:36] LABS: CREATININE URINE 24.1 mg/dL (Not Estab.); MICROALBUMIN URINE 18.1 ug/mL (Not Estab.)
== END ==
LOC: OD 14:32
PROVIDERS: ATTEND Internal Medicine Nephrology
DX: E11.9 Type 2 diabetes mellitus without complications (principal); I10 Essential (primary) hypertension; R80.9 Proteinuria, unspecified
CPT/HCPCS: 36415; 80053; 80061; 81001; 82043; 82570; 83036; 85025

== ENCOUNTER 2019-02-20 16:36 | Emergency (ER) | payer MEDICARE, MEDICAID ==
--- NOTE | 2019-02-20 16:42 | ER Document Report ---
ED Medical Screen (RME) - General Chief Complaint: Low Back Pain Stated Complaint: BLOOD IN URINE,LOW BACK PAIN Time Seen by Provider: 02/20/19 16:41 Primary Care Provider: YOSI HIGHTOWER MD [Primary Care Provider] - Follow up as needed Mode of Arrival: Ambulatory Information source: Patient Notes: 63-year-old male with history of kidney stones presents today with complaints of bilateral low back pain. Also reports blood in urine. Reports he does have a history of kidney stone which is 9 mm and his urologist will not do anything about it. Patient complains of pain with void. Denies fever vomiting diarrhea. I have greeted and performed a rapid initial assessment of this patient. A comprehensive ED assessment and evaluation of the patient, analysis of test results and completion of the medical decision making process will be conducted by additional ED providers. Dictation of this chart was performed using voice recognition software; therefore, there may be some unintended grammatical errors. TRAVEL OUTSIDE OF THE [place] IN LAST 30 DAYS: No - Related Data Allergies/Adverse Reactions: benztropine [From Cogentin] Allergy (Severe, Verified 09/12/18 15:27) Anaphylaxis codeine [Codeine] Allergy (Severe, Verified 09/12/18 15:27) HYPERACTIVE Penicillins Allergy (Mild, Verified 09/12/18 15:27) RASH Past Medical History - Past Medical History Cardiac Medical History: Reports: Hx Congestive Heart Failure, Hx DVT, Hx Hypercholesterolemia, Hx Hypertension, Hx Pulmonary Embolism Denies: Hx Atrial Fibrillation, Hx Coronary Artery Disease, Hx Heart Attack, Hx Peripheral Vascular Disease, Hx Heart Murmur Pulmonary Medical History: Reports: Hx Asthma, Hx Bronchitis, Hx COPD, Hx Pneumonia, Hx Sleep Apnea Denies: Hx Respiratory Failure, Hx Tuberculosis Neurological Medical History: Denies: Hx Cerebrovascular Accident, Hx Seizures, Hx Parkinson's Disease Endocrine Medical History: Reports: Hx Diabetes Mellitus Type 2. Denies: Hx Gr aves' Disease, Hx Hyperthyroidism, Hx Hypothyroidism Renal/ Medical History: Denies: Hx Benign Prostatic Hyperplasia, Hx End Stage Renal Disease, Hx Kidney Stones, Hx Peritoneal Dialysis Malignancy Medical History: Denies Hx Leukemia, Denies Hx Lung Cancer GI Medical History: Reports: Hx Hiatal Hernia. Denies: Hx Cirrhosis, Hx Crohn's Disease, Hx Gastroesophageal Reflux Disease, Hx Hepatitis, Hx Irritable Bowel, Hx Liver Failure, Hx Pancreatitis, Hx Ulcer Musculoskeltal Medical History: Reports Hx Arthritis, Denies Hx Fibromyalgia, Denies Hx Multiple Sclerosis, Denies Hx Muscular Dystrophy, Denies Hx Systemic Lupus Erythematosus Psychiatric Medical History: Reports: Hx Anxiety, Hx Depression, Hx Post Traumatic Stress Disorder, Hx Schizoaffective Disorder, Hx Schizophrenia Denies: Hx Bipolar Disorder Traumatic Medical History: Reports: Hx Fractures Infectious Medical History: Denies: Hx Hepatitis, Hx HIV Past Surgical History: Reports: Hx Abdominal Surgery - hernia repair, Hx Cardiac Catheterization - 30% blockage, Hx Genitourinary Surgery - VASECTOMY, Hx Herniorrhaphy, Hx Oral Surgery - TOOTH EXTRACTION, Hx Orthopedic Surgery - PLATE SCREWS DISC AND BONE GRAFT: NECK, Hx Tonsillectomy. Denies: Hx Appendectomy, Hx Bowel Surgery, Hx Cholecystectomy, Hx Colostomy, Hx Coronary Artery Bypass Graft, Hx Gastric Bypass Surgery, Hx Open Heart Surgery, Hx Pacemaker - Immunizations Hx Diphtheria, Pertussis, Tetanus Vaccination: No Doctor's Discharge - Discharge Referrals: YOSI HIGHTOWER MD [Primary Care Provider] - Follow up as needed
[2019-02-20 17:31] LABS: ABSOLUTE BASOPHILS # (AUTO) 0.1 10^3/uL (0.0-0.2); ABSOLUTE EOSINOPHILS # (AUTO) 0.5 10^3/uL (0.0-0.6); ABSOLUTE LYMPHOCYTES (AUTO) 1.5 10^3/uL (0.5-4.7); ABSOLUTE MONOCYTES (AUTO) 0.5 10^3/uL (0.1-1.4); BASOPHILS % (AUTO) 1.1 % (0-2); HEMATOCRIT 42.5 % (37.9-51.0); HEMOGLOBIN 14.5 g/dL (13.5-17.0); LYMPHOCYTES % (AUTO) 19.5 % (13-45); MEAN CORPUSCULAR HEMOGLOBIN 30.5 pg (27.0-33.4); MEAN CORPUSCULAR HGB CONC 34.1 g/dL (32.0-36.0); MEAN CORPUSCULAR VOLUME 90 fl (80-97); PLATELET COUNT 237 10^3/uL (150-450); RED BLOOD COUNT 4.74 10^6/uL (4.35-5.55); RED CELL DISTRIBUTION WIDTH 14.4 % (11.5-14.0); SEGMENTED NEUTROPHILS % (AUTO) 65.4 % (42-78); TOTAL CELLS COUNTED % (AUTO) 100 %; WHITE BLOOD COUNT 7.6 10^3/uL (4.0-10.5)
[2019-02-20 17:59] LABS: ALBUMIN 4.3 g/dL (3.5-5.0); ALKALINE PHOSPHATASE 92 U/L (38-126); ANION GAP 11 (5-19); ASPARTATE AMINO TRANSFERASE 24 U/L (17-59); BILIRUBIN,DIRECT 0.2 mg/dL (0.0-0.4); BILIRUBIN,TOTAL 0.4 mg/dL (0.2-1.3); BLOOD UREA NITROGEN 25 mg/dL (7-20); CALCIUM 9.6 mg/dL (8.4-10.2); CARBON DIOXIDE 29 mmol/L (22-30); CHLORIDE 99 mmol/L (98-107); GLUCOSE 377 mg/dL (75-110); TOTAL PROTEIN 7.9 g/dL (6.3-8.2)
--- NOTE | 2019-02-20 18:05 | ER Document Report ---
ED General - General Chief Complaint: Flank Pain Stated Complaint: BLOOD IN URINE,LOW BACK PAIN Time Seen by Provider: 02/20/19 16:41 Primary Care Provider: YOSI HIGHTOWER MD [Primary Care Provider] - Follow up in 3-5 days DANNY GREWAL MD [NO LOCAL MD] - Follow up as needed AJITH JENKINS MD [[facility]] - Follow up as needed Mode of Arrival: Ambulatory Notes: 63-year-old male with past medical history of kidney stones presents with bilateral flank pain and hematuria that started yesterday. Patient states he has "a little" nausea/vomiting. Patient states he was seen by urologist in [place] multiple times. Patient states he has a 9 mm kidney stone that the urologist will do nothing about. Patient denies fevers, chills, abdominal pain, diarrhea, constipation, dysuria. Patient is requesting a referral to a different urologist. TRAVEL OUTSIDE OF THE [place] IN LAST 30 DAYS: No - Related Data Allergies/Adverse Reactions: benztropine [From Cogentin] Allergy (Severe, Verified 02/20/19 16:48) Anaphylaxis codeine [Codeine] Allergy (Severe, Verified 02/20/19 16:48) HYPERACTIVE Penicillins Allergy (Mild, Verified 02/20/19 16:48) RASH Home Medications: nifedipine. geodon. eliquis. benadryl. celexa. unknown BP medications. bumex. multivitamin. b complex. asa 81. omega 3 fatty acids. glucosamine chondrotion. coq10. adair. vitamin d. dandelion Past Medical History - General Information source: Patient - Social History Smoking Status: Former Smoker Chew tobacco use (# tins/day): No Frequency of alcohol use: None Drug Abuse: None Family History: COPD, Hypertension Patient has suicidal ideation: No Patient has homicidal ideation: No - Past Medical History Cardiac Medical History: Reports: Hx Congestive Heart Failure, Hx DVT, Hx Hypercholesterolemia, Hx Hypertension, Hx Pulmonary Embolism Denies: Hx Atrial Fibrillation, Hx Coronary Artery Disease, Hx Heart Attack, Hx Peripheral Vascular Disease, Hx Heart Murmur Pulmonary Medical History: Reports: Hx Asthma, Hx Bronchitis, Hx COPD, Hx Pneumonia, Hx Sleep Apnea Denies: Hx Respiratory Failure, Hx Tuberculosis Neurological Medical History: Denies: Hx Cerebrovascular Accident, Hx Seizures, Hx Parkinson's Disease Endocrine Medical History: Reports: Hx Diabetes Mellitus Type 2. Denies: Hx Graves' Disease, Hx Hyperthyroidism, Hx Hypothyroidism Renal/ Medical History: Denies: Hx Benign Prostatic Hyperplasia, Hx End Stage Renal Disease, Hx Kidney Stones, Hx Peritoneal Dialysis Malignancy Medical History: Denies Hx Leukemia, Denies Hx Lung Cancer GI Medical History: Reports: Hx Hiatal Hernia. Denies: Hx Cirrhosis, Hx Crohn's Disease, Hx Gastroesophageal Reflux Disease, Hx Hepatitis, Hx Irritable Bowel, Hx Liver Failure, Hx Pancreatitis, Hx Ulcer Musculoskeletal Medical History: Reports Hx Arthritis, Denies Hx Fibromyalgia, D enies Hx Multiple Sclerosis, Denies Hx Muscular Dystrophy, Denies Hx Systemic Lupus Erythematosus Psychiatric Medical History: Reports: Hx Anxiety, Hx Depression, Hx Post Trau matic Stress Disorder, Hx Schizoaffective Disorder, Hx Schizophrenia Denies: Hx Bipolar Disorder Traumatic Medical History: Reports: Hx Fractures Infectious Medical History: Denies: Hx Hepatitis, Hx HIV Past Surgical History: Reports: Hx Abdominal Surgery - hernia repair, Hx Cardiac Catheterization - 30% blockage, Hx Genitourinary Surgery - VASECTOMY, Hx Herniorrhaphy, Hx Oral Surgery - TOOTH EXTRACTION, Hx Orthopedic Surgery - PLATE SCREWS DISC AND BONE GRAFT: NECK, Hx Tonsillectomy. Denies: Hx Appendectomy, Hx Bowel Surgery, Hx Cholecystectomy, Hx Colostomy, Hx Coronary Artery Bypass Graft, Hx Gastric Bypass Surgery, Hx Open Heart Surgery, Hx Pacemaker - Immunizations Hx Diphtheria, Pertussis, Tetanus Vaccination: No Hx Pneumococcal Vaccination: 04/07/09 Review of Systems - Review of Systems Notes: Constitutional: Negative for fever. HENT: Negative for sore throat. Eyes: Negative for visual changes. Cardiovascular: Negative for chest pain. Respiratory: Negative for shortness of breath. Gastrointestinal: Positive for flank pain. Negative for abdominal pain or diarrhea. Genitourinary: Positive for hematuria. Negative for dysuria. Musculoskeletal: Negative for back pain. Skin: Negative for rash. Neurological: Negative for headaches, weakness or numbness. 10 point ROS negative except as marked above and in HPI. Physical Exam - Vital signs Vitals: Temp Pulse Resp BP Pulse Ox 98.2 F 77 32 H 188/79 H 98 02/20/19 16:38 02/20/19 16:38 02/20/19 16:38 02/20/19 16:38 02/20/19 16:38 - Notes Notes: GENERAL: Well-appearing, well-nourished and in no acute distress. Morbidly obese. HEAD: Atraumatic, normocephalic. EYES: Extraocular movements intact, sclera anicteric, conjunctiva are normal. NECK: Normal range of motion, supple without lymphadenopathy or JVD. LUNGS: Breath sounds clear to auscultation bilaterally and equal. No wheezes ra les or rhonchi. Currently on home O2. HEART: Regular rate and rhythm without murmurs, rubs or gallops. ABDOMEN: Soft, nontender. No guarding, no rebound. No masses appreciated. No CVA tenderness bilaterally. EXTREMITIES: Normal range of motion, no pitting or edema. No clubbing or cyanosis. NEUROLOGICAL: Cranial nerves II through XII grossly intact. Normal speech, normal gait. PSYCH: Normal mood, normal affect. SKIN: Warm, Dry, normal turgor, no rashes or lesions noted. Course - Re-evaluation Re-evalutation: 02/20/19 63-year-old male with bilateral flank pain and hematuria. Patient has a history of kidney stones. CT abdomen/pelvis without contrast was ordered to rule out kidney stones. Nontoxic in appearance well-appearing no acute distress abdomen soft nontender. No CVA tenderness bilaterally. 02/20/19 19:[address] Gutierrez, attending, who states to have pt follow up with urologist outpatient. Discussed CT results with pt and pt's father at bedside. Pt offered referral to urologist at [facility]. Pt would like to be referred to both. Return precautions discussed/given. All questions/concerns addressed prior to discharge. - Vital Signs Vital signs: Temp Pulse Resp BP Pulse Ox 98.2 F 77 22 H 188/79 H 96 02/20/19 16:38 02/20/19 16:38 02/20/19 18:06 02/20/19 16:38 02/20/19 18:06 - Laboratory Result Diagrams: 02/20/19 17:20 02/20/19 17:20 Laboratory results interpreted by me: 02/20/19 02/20/19 02/20/19 17:20 17:20 17:20 RDW 14.4 H Eos % (Auto) 7.0 H BUN 25 H Glucose 377 H POC Glucose Urine Protein 30 H Urine Glucose (UA) 150 H Urine Blood LARGE H Ur Leukocyte Esterase TRACE H 02/20/19 17:25 RDW Eos % (Auto) BUN Glucose POC Glucose 366 H Urine Protein Urine Glucose (UA) Urine Blood Ur Leukocyte Esterase Discharge - Discharge Clinical Impression: Flank pain Hematuria Qualifiers: Hematuria type: unspecified type Qualified Code(s): R31.9 - Hematuria, unspecified Condition: Stable Disposition: HOME, SELF-CARE Instructions: Flank Pain ([facility]), Hematuria ([facility]) Additional Instructions: Please follow up with urologist as referred. Follow up with your primary care doctor in 3-5 days. Return to ER for any worsening symptoms, including fever, worsening blood in urine, pain when urinating, not being able to urinate, or any other worsening symptoms. Referrals: YOSI HIGHTOWER MD [Primary Care Provider] - Follow up in 3-5 days DANNY GREWAL MD [NO LOCAL MD] - Follow up as needed AJITH JENKINS MD [[facility]] - Follow up as needed
[2019-02-20 18:12] LABS: APPEARANCE,URINE SLIGHTLY-CLOUDY; BILIRUBIN,URINE NEGATIVE (NEGATIVE); COLOR,URINE YELLOW; GLUCOSE, URINE 150 mg/dL (NEGATIVE); KETONES,URINE NEGATIVE (NEGATIVE); LEUKOCYTE ESTERASE,URINE TRACE (NEGATIVE); NITRITE,URINE NEGATIVE (NEGATIVE); PROTEIN,URINE 30 mg/dL (NEGATIVE); URINE SPECIFIC GRAVITY 1.011; UROBILINOGEN,URINE NEGATIVE mg/dL (<2.0)
--- NOTE | 2019-02-20 18:53 | RADIOLOGY REPORT (SQ) ---
EXAM DESCRIPTION: CT ABDOMEN NO ORAL OR IV COMPLETED DATE/TIME: 02/20/2019 6:05 pm REASON FOR STUDY: flank pain, hematuria, dysuria, hx kidney stone COMPARISON: None. TECHNIQUE: CT scan of the abdomen performed without intravenous contrast and without oral contrast. Images reviewed with lung, soft tissue, and bone windows. Reconstructed coronal and sagittal MPR im ages reviewed. All images stored on PACS. All CT scanners at this facility use dose modulation, iterative reconstruction, and/or weight based d osing when appropriate to reduce radiation dose to as low as reasonably achievable (ALARA). [facility]: Dose Right [facility]: CareDose [facility]: Dose Right [facility]: Teradose 4D [facility]: Smart rPath RADIATION DOSE: CT Rad equipment meets quality standard of care and radiation dose reduction techniq ues were employed. CTDIvol: 30.0 mGy. DLP: 1725 mGy-cm.mGy. LIMITATIONS: None. FINDINGS: LOWER CHEST: No significant findings. No nodules or infiltrates. NONCONTRASTED LIVER, SPLEEN, ADRENALS: Evaluation limited by lack of IV contrast. No identified sign ificant masses. PANCREAS: No masses. No peripancreatic inflammatory changes. GALLBLADDER: No identified stones by CT criteria. No inflammatory changes to suggest cholecystitis. RIGHT KIDNEY AND URETER: No suspicious masses. Assessment limited by lack of IV contrast. No signif icant calcifications. No hydronephrosis or hydroureter. LEFT KIDNEY AND URETER: No suspicious masses. Assessment limited by lack of IV contrast. No signifi cant calcifications. No hydronephrosis or hydroureter. AORTA AND RETROPERITONEUM: No aneurysm. No retroperitoneal masses or adenopathy. BOWEL AND PERITONEAL CAVITY: No obvious masses or inflammatory changes. No free fluid. APPENDIX: Normal. ABDOMINAL WALL: No abdominal wall hernias. BONES: No significant findings. OTHER: No other significant finding. IMPRESSION: NO SIGNIFICANT OR ACUTE ABDOMINAL PROCESS. TECHNICAL DOCUMENTATION: JOB ID: [id number] Quality ID # [id number]: Final reports with documentation of one or more dose reduction techniques (e.g., Au tomated exposure control, adjustment of the mA and/or kV according to patient size, use of iterative reconstruction technique) 2010 [employer]- All Rights Reserved Reading location - IP/workstation name: [email or web address]
[2019-02-20 19:52] VITALS: BP 162/78
== END 2019-02-20 20:02 | disposition home or self-care (01) ==
LOC: ER 16:36
DX: R10.9 Unspecified abdominal pain (principal); R31.9 Hematuria, unspecified; R11.2 Nausea with vomiting, unspecified; M54.5 Low back pain; I50.9 Heart failure, unspecified; E78.00 Pure hypercholesterolemia, unspecified; I11.0 Hypertensive heart disease with heart failure; E11.9 Type 2 diabetes mellitus without complications; Z86.711 Personal history of pulmonary embolism; Z86.718 Personal history of other venous thrombosis and embolism; Z88.0 Allergy status to penicillin; Z79.01 Long term (current) use of anticoagulants; Z88.6 Allergy status to analgesic agent
CPT/HCPCS: 36415; 74150; 80053; 81001; 82962; 85025; 99284

== ENCOUNTER 2019-04-08 21:56 | Emergency (ER) | payer MEDICARE, MEDICAID ==
[2019-04-08] MEDS ORDERED: PREDNISONE 20 MG TABLET PO ONE (22:57)
[2019-04-08] MEDS ORDERED: IPRATROPIUM/ALBUTEROL 0.5-2.5 MG/3 ML AMPUL NEB ONE (22:57)
--- NOTE | 2019-04-08 23:01 | ER Document Report ---
ED Medical Screen (RME) - General Chief Complaint: Shortness Of Breath Stated Complaint: DIFFICULTY BREATHING Time Seen by Provider: 04/08/19 22:57 Primary Care Provider: YOSI HIGHTOWER MD [Primary Care Provider] - Follow up as needed Mode of Arrival: Wheelchair Information source: Patient Notes: Patient presents complaining of difficulty breathing this evening that has started to improve. Patient does report dyspnea on exertion but states that his symptoms improve if he is able to rest. Patient denies any fever, cough or chest pain. Patient does report a history of asthma, COPD, and hypertension. Patient does wear oxygen as needed at home. I have greeted and performed a rapid initial assessment of this patient. A comprehensive ED assessment and evaluation of the patient, analysis of test results and completion of the medical decision making process will be conducted by additional ED providers. TRAVEL OUTSIDE OF THE [place] IN LAST 30 DAYS: No - Related Data Allergies/Adverse Reactions: benztropine [From Cogentin] Allergy (Severe, Verified 04/08/19 22:51) Anaphylaxis codeine [Codeine] Allergy (Severe, Verified 04/08/19 22:51) HYPERACTIVE Penicillins Allergy (Mild, Verified 04/08/19 22:51) RASH Past Medical History - Past Medical History Cardiac Medical History: Reports: Hx Congestive Heart Failure, Hx DVT, Hx Hypercholesterolemia, Hx Hypertension, Hx Pulmonary Embolism Denies: Hx Atrial Fibrillation, Hx Coronary Artery Disease, Hx Heart Attack, Hx Peripheral Vascular Disease, Hx Heart Murmur Pulmonary Medical History: Reports: Hx Asthma, Hx Bronchitis, Hx COPD, Hx Pneumo chantel, Hx Sleep Apnea Denies: Hx Respiratory Failure, Hx Tuberculosis Neurological Medical History: Denies: Hx Cerebrovascular Accident, Hx Seizures, Hx Parkinson's Disease Endocrine Medical History: Reports: Hx Diabetes Mellitus Type 2. Denies: Hx Graves' Disease, Hx Hyperthyroidism, Hx Hypothyroidism Renal/ Medical History: Denies: Hx Benign Prostatic Hyperplasia, Hx End Stage Renal Disease, Hx Kidney Stones, Hx Peritoneal Dialysis Malignancy Medical History: Denies Hx Leukemia, Denies Hx Lung Cancer GI Medical History: Reports: Hx Hiatal Hernia. Denies: Hx Cirrhosis, Hx Crohn's Disease, Hx Gastroesophageal Reflux Disease, Hx Hepatitis, Hx Irritable Bowel, Hx Liver Failure, Hx Pancreatitis, Hx Ulcer Musculoskeltal Medical History: Reports Hx Arthritis, Denies Hx Fibromyalgia, Denies Hx Multiple Sclerosis, Denies Hx Muscular Dystrophy, Denies Hx Systemic Lupus Erythematosus Psychiatric Medical History: Reports: Hx Anxiety, Hx Depression, Hx Post Traumatic Stress Disorder, Hx Schizoaffective Disorder, Hx Schizophrenia Denies: Hx Bipolar Disorder Traumatic Medical History: Reports: Hx Fractures Infectious Medical History: Denies: Hx Hepatitis, Hx HIV Past Surgical History: Reports: Hx Abdominal Surgery - hernia repair, Hx Cardiac Catheterization - 30% blockage, Hx Genitourinary Surgery - VASECTOMY, Hx Herniorrhaphy, Hx Oral Surgery - TOOTH EXTRACTION, Hx Orthopedic Surgery - PLATE SCREWS DISC AND BONE GRAFT: NECK, Hx Tonsillectomy. Denies: Hx Appendectomy, Hx Bowel Surgery, Hx Cholecystectomy, Hx Colostomy, Hx Coronary Artery Bypass Graft, Hx Gastric Bypass Surgery, Hx Open Heart Surgery, Hx Pacemaker - Immunizations Hx Diphtheria, Pertussis, Tetanus Vaccination: No Physical Exam - Vital signs Vitals: Temp Pulse Resp BP Pulse Ox 97.8 F 90 17 154/77 H 99 04/08/19 22:16 04/08/19 22:16 04/08/19 22:16 04/08/19 22:16 04/08/19 22:16 - Respiratory Respiratory status: No respiratory distress. No: Tachypnea Breath sounds: Wheezing Course - Vital Signs Vital signs: Temp Pulse Resp BP Pulse Ox 97.8 F 90 17 154/77 H 99 04/08/19 22:16 04/08/19 22:16 04/08/19 22:16 04/08/19 22:16 04/08/19 22:16 Doctor's Discharge - Discharge Referrals: YOSI HIGHTOWER MD [Primary Care Provider] - Follow up as needed
[2019-04-08 23:23] LABS: ABSOLUTE BASOPHILS # (AUTO) 0.1 10^3/uL (0.0-0.2); ABSOLUTE EOSINOPHILS # (AUTO) 0.5 10^3/uL (0.0-0.6); ABSOLUTE LYMPHOCYTES (AUTO) 1.6 10^3/uL (0.5-4.7); ABSOLUTE MONOCYTES (AUTO) 0.6 10^3/uL (0.1-1.4); ABSOLUTE NEUT (AUTO) 6.2 10^3/uL (1.7-8.2); BASOPHILS % (AUTO) 0.7 % (0-2); EOSINOPHILS % (AUTO) 5.1 % (0-6); HEMATOCRIT 42.8 % (37.9-51.0); HEMOGLOBIN 14.7 g/dL (13.5-17.0); LYMPHOCYTES % (AUTO) 17.5 % (13-45); MEAN CORPUSCULAR HEMOGLOBIN 30.1 pg (27.0-33.4); MEAN CORPUSCULAR HGB CONC 34.3 g/dL (32.0-36.0); MEAN CORPUSCULAR VOLUME 88 fl (80-97); MONOCYTES % (AUTO) 6.7 % (3-13); PLATELET COUNT 225 10^3/uL (150-450); RED BLOOD COUNT 4.87 10^6/uL (4.35-5.55); TOTAL CELLS COUNTED % (AUTO) 100 %; WHITE BLOOD COUNT 8.9 10^3/uL (4.0-10.5)
[2019-04-08 23:42] LABS: ALBUMIN 4.4 g/dL (3.5-5.0); ALKALINE PHOSPHATASE 100 U/L (38-126); ANION GAP 12 (5-19); ASPARTATE AMINO TRANSFERASE 24 U/L (17-59); BILIRUBIN,DIRECT 0.3 mg/dL (0.0-0.4); BILIRUBIN,TOTAL 0.4 mg/dL (0.2-1.3); BLOOD UREA NITROGEN 32 mg/dL (7-20); CALCIUM 9.8 mg/dL (8.4-10.2); CARBON DIOXIDE 29 mmol/L (22-30); CHLORIDE 97 mmol/L (98-107); GLUCOSE 181 mg/dL (75-110); POTASSIUM 3.8 mmol/L (3.6-5.0); TOTAL PROTEIN 8.1 g/dL (6.3-8.2)
[2019-04-08 23:54] LABS: NT PRO BNP 76 pg/mL (<125); TROPONIN I < 0.012 ng/mL
--- NOTE | 2019-04-09 00:48 | RADIOLOGY REPORT (SQ) ---
EXAM DESCRIPTION: XR CHEST 2 VIEWS COMPLETED DATE/TME: 04/08/2019 22:58 CLINICAL HISTORY: 63 years, Male, sob COMPARISON: None. NUMBER OF VIEWS: TECHNIQUE: LIMITATIONS: None. FINDINGS: There may be cephalization of pulmonary blood flow, raising the possibility of mild pulmonary vascular congestion. The heart is normal in size. No evidence of pulmonary infiltrate or pleural effusion. There are postoperative changes in the lower cervical spine. IMPRESSION: Possible mild pulmonary vascular congestion. copyright 2010 [employer]- All Rights Reserved
--- NOTE | 2019-04-09 05:12 | ER Document Report ---
ED General - General Chief Complaint: Shortness Of Breath Stated Complaint: DIFFICULTY BREATHING Time Seen by Provider: 04/08/19 22:57 Primary Care Provider: MALDONADO GARCIA MD [Primary Care Provider] - Follow up as needed Mode of Arrival: Wheelchair TRAVEL OUTSIDE OF THE [place] IN LAST 30 DAYS: No - Related Data Allergies/Adverse Reactions: benztropine [From Cogentin] Allergy (Severe, Verified 04/08/19 22:51) Anaphylaxis codeine [Codeine] Allergy (Severe, Verified 04/08/19 22:51) HYPERACTIVE Penicillins Allergy (Mild, Verified 04/08/19 22:51) RASH Past Medical History - General Information source: Patient - Social History Smoking Status: Former Smoker Frequency of alcohol use: None Drug Abuse: None Lives with: Family Family History: COPD, Hypertension Patient has suicidal ideation: No Patient has homicidal ideation: No - Past Medical History Cardiac Medical History: Reports: Hx Congestive Heart Failure, Hx DVT, Hx Hypercholesterolemia, Hx Hypertension, Hx Pulmonary Embolism Pulmonary Medical History: Reports: Hx Asthma, Hx Bronchitis, Hx COPD, Hx Pneumonia, Hx Sleep Apnea EENT Medical History: Reports: None Neurological Medical History: Reports: None Endocrine Medical History: Reports: Hx Diabetes Mellitus Type 2 Renal/ Medical History: Reports: None Malignancy Medical History: Reports None GI Medical History: Reports: None, Hx Hiatal Hernia Musculoskeletal Medical History: Reports Hx Arthritis Skin Medical History: Reports None Psychiatric Medical History: Reports: Hx Anxiety, Hx Depression, Hx Post Traumatic Stress Disorder, Hx Schizoaffective Disorder, Hx Schizophrenia Traumatic Medical History: Reports: Hx Fractures Infectious Medical History: Reports: None Past Surgical History: Reports: Hx Abdominal Surgery - hernia repair, Hx Cardiac Catheterization - 30% blockage, Hx Genitourinary Surgery - VASECTOMY, Hx Herniorrhaphy, Hx Oral Surgery - TOOTH EXTRACTION, Hx Orthopedic Surgery - PLATE SCREWS DISC AND BONE GRAFT: NECK, Hx Tonsillectomy - Immunizations Hx Diphtheria, Pertussis, Tetanus Vaccination: No Hx Pneumococcal Vaccination: 04/07/09 Review of Systems - Review of Systems Constitutional: No symptoms reported EENT: No symptoms reported Cardiovascular: No symptoms reported Respiratory: Short of breath Gastrointestinal: No symptoms reported Genitourinary: No symptoms reported Male Genitourinary: No symptoms reported Musculoskeletal: No symptoms reported Skin: No symptoms reported Hematologic/Lymphatic: No symptoms reported Neurological/Psychological: No symptoms reported -: Yes All other systems reviewed and negative Physical Exam - Vital signs Vitals: Temp Pulse Resp BP Pulse Ox 97.8 F 90 17 154/77 H 99 04/08/19 22:16 04/08/19 22:16 04/08/19 22:16 04/08/19 22:16 04/08/19 22:16 Interpretation: Normal Notes: O2 sat 98% pulse 94 blood pressure 147/82 after walking back to the room respirations were 28 to begin with and went down to 20 - General General appearance: Appears well, Alert - HEENT Head: Normocephalic, Atraumatic Eyes: Normal Pupils: PERRL - Respiratory Respiratory status: No respiratory distress Chest status: Nontender Breath sounds: Normal Chest palpation: Normal - Cardiovascular Rhythm: Regular Heart sounds: Normal auscultation Murmur: No - Abdominal Inspection: Normal Distension: No distension Bowel sounds: Normal Tenderness: Nontender Organomegaly: No organomegaly - Back Back: Normal, Nontender - Extremities General upper extremity: Normal inspection, Nontender, Normal color, Normal ROM, Normal temperature General lower extremity: Normal inspection, Nontender, Normal color, Normal ROM, Normal temperature, Normal weight bearing. No: Zahira's sign - Neurological Neuro grossly intact: Yes Cognition: Normal Orientation: AAOx4 Avella Coma Scale Eye Opening: Spontaneous Avella Coma Scale Verbal: Oriented Chad Coma Scale Motor: Obeys Commands Chad Coma Scale Total: 15 Speech: Normal Motor strength normal: LUE, RUE, LLE, RLE Sensory: Normal - Psychological Associated symptoms: Normal affect, Normal mood - Skin Skin Temperature: Warm Skin Moisture: Dry Skin Color: Normal Course - Re-evaluation Re-evalutation: 04/09/19 10:51 Discussed labs chest x-ray with Dr. Osei. He did go in and examined the patient before patient was discharged. Patient is a known schizophrenic with history of CHF morbidly obese. Patient has been to the emergency room for similar symptoms multiple times. Dr. Osei agreed patient could be discharged home. - Vital Signs Vital signs: Temp Pulse Resp BP Pulse Ox 98.8 F 97 20 147/82 H 98 04/09/19 02:19 04/09/19 05:17 04/09/19 05:17 04/09/19 05:17 04/09/19 05:17 - Laboratory Result Diagrams: 04/08/19 23:05 04/08/19 23:05 Laboratory results interpreted by me: 04/08/19 23:05 Chloride 97 L BUN 32 H Glucose 181 H - Diagnostic Test Radiology reviewed: Image reviewed, Reports reviewed Discharge - Discharge Clinical Impression: Morbid obesity with BMI of 50.0-59.9, adult, dyspnea after large meal Condition: Stable Disposition: HOME, SELF-CARE Additional Instructions: You were seen today for shortness of breath difficulty breathing after you ate for cheeseburgers at [employer]. He states he did not eat the bread. He states as the evening has progressed the dyspnea has gotten much better he does get very short of breath when you exert yourself. You state this is relieved when you rest. You denied any fevers cough or chest pain. You do have an extensive history that would cause you to be short of breath when you walk or eat a lot of food at 1 time. Please call your primary doctor to follow-up in the morning. Please decrease your intake of cheeseburgers at one time. FOLLOW-UP CARE: If you have been referred to a physician for follow-up care, call the physicians office for an appointment as you were instructed or within the next two days. If you experience worsening or a significant change in your symptoms, notify the physician immediately or return to the Emergency Department at any time for re-evaluation. Forms: Elevated Blood Pressure Referrals: MALDONADO GARCIA MD [Primary Care Provider] - Follow up as needed
[2019-04-09 05:18] VITALS: BP 147/82
== END 2019-04-09 05:23 | disposition home or self-care (01) ==
LOC: ER 21:56
DX: J44.9 Chronic obstructive pulmonary disease, unspecified (principal); E66.01 Morbid (severe) obesity due to excess calories; Z68.43 Body mass index [BMI] 50.0-59.9, adult; R06.02 Shortness of breath; E11.9 Type 2 diabetes mellitus without complications; I10 Essential (primary) hypertension; Z87.01 Personal history of pneumonia (recurrent); Z87.891 Personal history of nicotine dependence; Z86.711 Personal history of pulmonary embolism; Z86.718 Personal history of other venous thrombosis and embolism; Z87.892 Personal history of anaphylaxis; Z88.8 Allergy status to other drugs, medicaments and biological substances; Z88.6 Allergy status to analgesic agent; Z88.5 Allergy status to narcotic agent; Z88.0 Allergy status to penicillin
CPT/HCPCS: 36415; 71046; 80053; 83880; 84484; 85025; 99285

== ENCOUNTER 2019-05-05 19:43 | Emergency (ER) | payer MEDICARE, MEDICAID ==
--- NOTE | 2019-05-05 20:14 | ER Document Report ---
ED Medical Screen (RME) - General Chief Complaint: Shortness Of Breath Stated Complaint: CHEST PAIN,NAUSEA Time Seen by Provider: 05/05/19 20:03 Primary Care Provider: MALDONADO GARCIA MD [Primary Care Provider] - Follow up as needed Mode of Arrival: Wheelchair Information source: Patient Notes: 63-year-old male patient with multiple comorbidities presenting to the emergency department complaints of chest pain and elevated blood pressure. That he had some chest pressure a few days ago so he decided to stop taking few of his blood pressure medications because he read up on them and they had side effects of "heart stopping capabilities". Patient reports that he doubled up on 1 of his other blood pressure medications which worked for the last few days however today his blood pressure has elevated significantly. Patient reports he is having "heart spasms". He states this feels like a pressure in the middle of his chest. He does report a history of multiple cardiac issues although patient reports he does not have a primary care provider or a labor contract analyst at this time. He does report that he is with the [facility]. Patient does say that he is seen by a psychiatrist. Heart sounds S1-S2 present, normal rate, normal rhythm. Lung sounds clear and equal bilaterally. I have greeted and performed a rapid initial assessment of this patient. A comprehensive ED assessment and evaluation of the patient, analysis of test results and completion of the medical decision making process will be conducted by additional ED providers. I have specifically instructed the patient or family members with the patient to immediately return to any nursing staff should anything change in the patient's condition or with their chief complaint. TRAVEL OUTSIDE OF THE [place] IN LAST 30 DAYS: No - Related Data Allergies/Adverse Reactions: benztropine [From Cogentin] Allergy (Severe, Verified 04/08/19 22:51) Anaphylaxis codeine [Codeine] Allergy (Severe, Verified 04/08/19 22:51) HYPERACTIVE Penicillins Allergy (Mild, Verified 04/08/19 22:51) RASH Past Medical History - Past Medical History Cardiac Medical History: Reports: Hx Congestive Heart Failure, Hx DVT, Hx Hypercholesterolemia, Hx Hypertension, Hx Pulmonary Embolism Denies: Hx Atrial Fibrillation, Hx Coronary Artery Disease, Hx Heart Attack, Hx Peripheral Vascular Disease, Hx Heart Murmur Pulmonary Medical History: Reports: Hx Asthma, Hx Bronchitis, Hx COPD, Hx Pneumonia, Hx Sleep Apnea Denies: Hx Respiratory Failure, Hx Tuberculosis Neurological Medical History: Denies: Hx Cerebrovascular Accident, Hx Seizures, Hx Parkinson's Disease Endocrine Medical History: Reports: Hx Diabetes Mellitus Type 2. Denies: Hx Graves' Disease, Hx Hyperthyroidism, Hx Hypothyroidism Renal/ Medical History: Denies: Hx Benign Prostatic Hyperplasia, Hx End Stage Renal Disease, Hx Kidney Stones, Hx Peritoneal Dialysis Malignancy Medical History: Denies Hx Leukemia, Denies Hx Lung Cancer GI Medical History: Reports: Hx Hiatal Hernia. Denies: Hx Cirrhosis, Hx Crohn's Disease, Hx Gastroesophageal Reflux Disease, Hx Hepatitis, Hx Irritable Bowel, Hx Liver Failure, Hx Pancreatitis, Hx Ulcer Musculoskeltal Medical History: Reports Hx Arthritis, Denies Hx Fibromyalgia, Denies Hx Multiple Sclerosis, Denies Hx Muscular Dystrophy, Denies Hx Systemic Lupus Erythematosus Psychiatric Medical History: Reports: Hx Anxiety, Hx Depression, Hx Post Traumatic Stress Disorder, Hx Schizoaffective Disorder, Hx Schizophrenia Denies: Hx Bipolar Disorder Traumatic Medical History: Reports: Hx Fractures Infectious Medical History: Denies: Hx Hepatitis, Hx HIV Past Surgical History: Reports: Hx Abdominal Surgery - hernia repair, Hx Cardiac Catheterization - 30% blockage, Hx Genitourinary Surgery - VASECTOMY, Hx Herniorrhaphy, Hx Oral Surgery - TOOTH EXTRACTION, Hx Orthopedic Surgery - PLATE SCREWS DISC AND BONE GRAFT: NECK, Hx Tonsillectomy. Denies: Hx Appendectomy, Hx Bowel Surgery, Hx Cholecystectomy, Hx Colostomy, Hx Coronary Artery Bypass Graft, Hx Gastric Bypass Surgery, Hx Open Heart Surgery, Hx Pacemaker - Immunizations Hx Diphtheria, Pertussis, Tetanus Vaccination: No Physical Exam - Vital signs Vitals: Temp Pulse Resp BP Pulse Ox 98.1 F 62 14 185/96 H 97 05/05/19 20:03 05/05/19 20:03 05/05/19 20:03 05/05/19 20:03 05/05/19 20:03 Course - Vital Signs Vital signs: Temp Pulse Resp BP Pulse Ox 98.1 F 62 14 185/96 H 97 05/05/19 20:03 05/05/19 20:03 05/05/19 20:03 05/05/19 20:03 05/05/19 20:03 Doctor's Discharge - Discharge Referrals: MALDONADO GARCIA MD [Primary Care Provider] - Follow up as needed
--- NOTE | 2019-05-05 20:41 | RADIOLOGY REPORT (SQ) ---
XR CHEST 1 VIEW CLINICAL STATEMENT: chest pain COMPARISON: 04/08/2019 FINDINGS: Heart is moderately enlarged. Aorta is within normal limits. There is no focal lung consolidation or pleural effusion. No evidence of pulmonary edema or pneumothorax. IMPRESSION: No acute cardiopulmonary disease.
--- NOTE | 2019-05-05 21:20 | ER Document Report ---
ED General - General Chief Complaint: Shortness Of Breath Stated Complaint: CHEST PAIN,NAUSEA Time Seen by Provider: 05/05/19 20:03 Primary Care Provider: MALDONADO GARCIA MD [EMERITUS] - Follow up as needed Mode of Arrival: Wheelchair Information source: Patient TRAVEL OUTSIDE OF THE [place] IN LAST 30 DAYS: No - HPI Onset: Other - over the last 4 days Onset/Duration: Gradual Quality of pain: Pressure, Throbbing Severity: Mild Pain Level: 1 Context: patient says he stopped taking 2 of his blood pressure medications since he read they can cause your heart to stop Associated symptoms: Other - palpitations Exacerbated by: Denies Relieved by: Denies Similar symptoms previously: Yes - many times Recently seen / treated by doctor: Yes - has been seen in this ER for various reasons recently Notes: 63 year old male with a history of Schizophrenia, PE/DVT on Eliquis, DM, CHF, Obesity here for 4 days of chest pain which he says started when he stopped taking 2 of his blood pressure medications. The patient says he stopped taking the 2 blood pressure medications since he read on [employer] they can cause your heart to stop. The patient says his heart has been racing some and he has noticed his blood pressure has been high as well. The patient denies fevers, sweats, radiation of chest pain, vomiting, shortness of breath, cough but he has had some nausea and chills. The patient says he had a stress test which was normal in the last [address]ber [address]. Go. The patient says he had a cath about 10 years ago which showed no significant CAD. - Related Data Allergies/Adverse Reactions: benztropine [From Cogentin] Allergy (Severe, Verified 04/08/19 22:51) Anaphylaxis codeine [Codeine] Allergy (Severe, Verified 04/08/19 22:51) HYPERACTIVE Penicillins Allergy (Mild, Verified 04/08/19 22:51) RASH Past Medical History - General Information source: Patient - Social History Smoking Status: Former Smoker Frequency of alcohol use: None Drug Abuse: None Family History: COPD, Hypertension Patient has suicidal ideation: No Patient has homicidal ideation: No - Past Medical History Cardiac Medical History: Reports: Hx Congestive Heart Failure, Hx DVT, Hx Hypercholesterolemia, Hx Hypertension, Hx Pulmonary Embolism Denies: Hx Atrial Fibrillation, Hx Coronary Artery Disease, Hx Heart Attack, Hx Peripheral Vascular Disease, Hx Heart Murmur Pulmonary Medical History: Reports: Hx Asthma, Hx Bronchitis, Hx COPD, Hx Pneumonia, Hx Sleep Apnea Denies: Hx Respiratory Failure, Hx Tuberculosis Neurological Medical History: Denies: Hx Cerebrovascular Accident, Hx Seizures, Hx Parkinson's Disease Endocrine Medical History: Reports: Hx Diabetes Mellitus Type 2. Denies: Hx Graves' Disease, Hx Hyperthyroidism, Hx Hypothyroidism Renal/ Medical History: Denies: Hx Benign Prostatic Hyperplasia, Hx End Stage Renal Disease, Hx Kidney Stones, Hx Peritoneal Dialysis Malignancy Medical History: Denies Hx Leukemia, Denies Hx Lung Cancer GI Medical History: Reports: Hx Hiatal Hernia. Denies: Hx Cirrhosis, Hx Crohn's Disease, Hx Gastroesophageal Reflux Disease, Hx Hepatitis, Hx Irritable Bowel, Hx Liver Failure, Hx Pancreatitis, Hx Ulcer Musculoskeletal Medical History: Reports Hx Arthritis, Denies Hx Fibromyalgia, Denies Hx Multiple Sclerosis, Denies Hx Muscular Dystrophy, Denies Hx Systemic Lupus Erythematosus Psychiatric Medical History: Reports: Hx Anxiety, Hx Depression, Hx Post Traumatic Stress Disorder, Hx Schizoaffective Disorder, Hx Schizophrenia Denies: Hx Bipolar Disorder Traumatic Medical History: Reports: Hx Fractures Infectious Medical History: Denies: Hx Hepatitis, Hx HIV Past Surgical History: Reports: Hx Abdominal Surgery - hernia repair, Hx Cardiac Catheterization - 30% blockage, Hx Genitourinary Surgery - VASECTOMY, Hx Herniorrhaphy, Hx Oral Surgery - TOOTH EXTRACTION, Hx Orthopedic Surgery - PLATE SCREWS DISC AND BONE GRAFT: NECK, Hx Tonsillectomy. Denies: Hx Appendectomy, Hx Bowel Surgery, Hx Cholecystectomy, Hx Colostomy, Hx Coronary Artery Bypass Graft, Hx Gastric Bypass Surgery, Hx Open Heart Surgery, Hx Pacemaker - Immunizations Hx Diphtheria, Pertussis, Tetanus Vaccination: No Hx Pneumococcal Vaccination: 04/07/09 Review of Systems - Review of Systems Constitutional: No symptoms reported EENT: No symptoms reported Cardiovascular: Chest pain, Palpitations, Heart racing Respiratory: No symptoms reported Gastrointestinal: No symptoms reported Genitourinary: No symptoms reported Physical Exam - Vital signs Vitals: Temp Pulse Resp BP Pulse Ox 98.1 F 62 14 185/96 H 97 05/05/19 20:03 05/05/19 20:03 05/05/19 20:03 05/05/19 20:03 05/05/19 20:03 - Notes Notes: GENERAL: Obese but otherwise well-appearing and in no acute distress. HEAD: Atraumatic, normocephalic. EYES: Pupils equal round and reactive to light, extraocular movements intact, sclera anicteric, conjunctiva are normal. ENT: Nares patent, oropharynx clear without exudates. Moist mucous membranes. NECK: Normal range of motion, supple without lymphadenopathy or JVD. LUNGS: Breath sounds clear to auscultation bilaterally and equal. No wheezes rales or rhonchi. HEART: Regular rate and rhythm without murmurs, rubs or gallops. ABDOMEN: Soft, nontender, normoactive bowel sounds. No guarding, no rebound. No masses appreciated. EXTREMITIES: Normal range of motion, no pitting or edema. No clubbing or cyanosis. NEUROLOGICAL: Cranial nerves II through XII grossly intact. Normal speech, normal gait. PSYCH: Normal mood, normal affect. Patient is slightly tangential in his thoughts. SKIN: Warm, Dry, normal turgor, no rashes or lesions noted. Course - Re-evaluation Re-evalutation: 05/05/19 23:22 The patient is here for chest pain for 4 days. He tells me he has had a negative stress test in the last 3 years. Patient also tells me he stopped taking 2 of his blood pressure medications since he read online they could stop his heart. I explained that he needs to take his BP meds as prescribed and he needs to follow up with his PCP and [facility]. Patient's chest pain does not sound concerning for ACS based on his description. Patient told to have a repeat outpatient stress test nonetheless. Patient's Trop and EKG unremarkable. - Vital Signs Vital signs: Temp Pulse Resp BP Pulse Ox 98.1 F 62 14 150/99 H 97 05/05/19 20:03 05/05/19 20:03 05/05/19 21:59 05/05/19 21:12 05/05/19 22:35 - Laboratory Result Diagrams: 05/05/19 21:53 05/05/19 21:53 Laboratory results interpreted by me: 05/05/19 05/05/19 05/05/19 21:53 21:53 21:53 RDW 14.1 H Carbon Dioxide 31 H Glucose 141 H NT-Pro-B Natriuret Pep 302 H - EKG Interpretation by Me EKG shows normal: Sinus rhythm, [place], Intervals, QRS Complexes, ST-T Waves Rate: Normal Discharge - Discharge Clinical Impression: Chest pain Qualifiers: Chest pain type: unspecified Qualified Code(s): R07.9 - Chest pain, unspecified Hypertension Qualifiers: Hypertension type: unspecified Qualified Code(s): I10 - Essential (primary) hypertension Condition: Stable Disposition: HOME, SELF-CARE Instructions: Chest Pain of Unclear Cause ([facility]), High Blood Pressure ([facility]) Additional Instructions: Follow up with your primary care doctor and with your software consultant and tell them about your ER visit today for chest pains. You and your doctors should go over your blood pressure medications to decide which are best for you. You and your doctors should also consider having a repeat cardiac stress test. Referrals: MALDONADO GARCIA MD [EMERITUS] - Follow up as needed
[2019-05-05 22:13] LABS: ABSOLUTE BASOPHILS # (AUTO) 0.1 10^3/uL (0.0-0.2); ABSOLUTE EOSINOPHILS # (AUTO) 0.3 10^3/uL (0.0-0.6); ABSOLUTE LYMPHOCYTES (AUTO) 1.1 10^3/uL (0.5-4.7); ABSOLUTE MONOCYTES (AUTO) 0.6 10^3/uL (0.1-1.4); ABSOLUTE NEUT (AUTO) 5.6 10^3/uL (1.7-8.2); BASOPHILS % (AUTO) 0.7 % (0-2); EOSINOPHILS % (AUTO) 4.3 % (0-6); HEMATOCRIT 40.2 % (37.9-51.0); HEMOGLOBIN 13.9 g/dL (13.5-17.0); MEAN CORPUSCULAR HEMOGLOBIN 30.5 pg (27.0-33.4); MEAN CORPUSCULAR HGB CONC 34.5 g/dL (32.0-36.0); MEAN CORPUSCULAR VOLUME 88 fl (80-97); MONOCYTES % (AUTO) 7.4 % (3-13); PLATELET COUNT 190 10^3/uL (150-450); RED BLOOD COUNT 4.55 10^6/uL (4.35-5.55); RED CELL DISTRIBUTION WIDTH 14.1 % (11.5-14.0); SEGMENTED NEUTROPHILS % (AUTO) 73.6 % (42-78); TOTAL CELLS COUNTED % (AUTO) 100 %; WHITE BLOOD COUNT 7.6 10^3/uL (4.0-10.5)
[2019-05-05 22:34] LABS: ALBUMIN 4.2 g/dL (3.5-5.0); ALKALINE PHOSPHATASE 93 U/L (38-126); ANION GAP 10 (5-19); ASPARTATE AMINO TRANSFERASE 27 U/L (17-59); BILIRUBIN,DIRECT 0.3 mg/dL (0.0-0.4); BILIRUBIN,TOTAL 0.4 mg/dL (0.2-1.3); BLOOD UREA NITROGEN 19 mg/dL (7-20); CALCIUM 9.3 mg/dL (8.4-10.2); CARBON DIOXIDE 31 mmol/L (22-30); CHLORIDE 99 mmol/L (98-107); GLUCOSE 141 mg/dL (75-110); POTASSIUM 3.9 mmol/L (3.6-5.0); TOTAL PROTEIN 7.9 g/dL (6.3-8.2)
[2019-05-05 22:47] LABS: NT PRO BNP 302 pg/mL (<125)
[2019-05-05 22:57] LABS: TROPONIN I < 0.012 ng/mL
[2019-05-06 00:23] VITALS: BP 187/94
--- NOTE | 2019-05-06 09:20 | EKG REPORT ---
SEVERITY:- NORMAL ECG - SINUS RHYTHM : Confirmed by: Ying Rubi 06-May-2019 09:18:46
== END 2019-05-06 00:23 | disposition home or self-care (01) ==
LOC: ER 19:43
DX: R07.9 Chest pain, unspecified (principal); I11.0 Hypertensive heart disease with heart failure; I50.9 Heart failure, unspecified; R06.02 Shortness of breath; R11.0 Nausea; E66.9 Obesity, unspecified; R11.10 Vomiting, unspecified; Z87.891 Personal history of nicotine dependence; J44.9 Chronic obstructive pulmonary disease, unspecified; E11.9 Type 2 diabetes mellitus without complications
CPT/HCPCS: 36415; 71045; 80053; 83880; 84484; 85025; 93005; 93010; 99285

== ENCOUNTER 2019-05-20 02:26 | Emergency (ER) | payer MEDICARE, MEDICAID ==
[2019-05-20] MEDS ORDERED: ALBUTEROL SULFATE 0.083% NEB 2.5 MG/3 ML AMPUL NEB ONE (03:10)
--- NOTE | 2019-05-20 03:10 | ER Document Report ---
ED General - General Chief Complaint: Shortness Of Breath Stated Complaint: SHORTNESS OF BREATH Time Seen by Provider: 05/20/19 03:05 Mode of Arrival: Medic Information source: Patient TRAVEL OUTSIDE OF THE [place] IN LAST 30 DAYS: No - HPI Onset: This morning Onset/Duration: Sudden Quality of pain: No pain Severity: Moderate Pain Level: Denies Associated symptoms: Nonproductive cough, Shortness of breath, Sweating, Other - wheezing Exacerbated by: Other - patient thinks Amlodipine caused the symptoms Relieved by: Other - Duoneb and Solumedrol from EMS Similar symptoms previously: Yes - when he previously took Amlodipine Recently seen / treated by doctor: Yes Notes: 63 year old male with a history of Morbid Obesity, Schizophrenia, PE/DVT, CHF, ATUUMN, COPD on 3L O2 at home and Bipap at night brought in by EMS for shortness of breath and increased work of breathing which the patient says started shortly after taking Amlodipine. The patient says he has had this reaction to Amlodipine in the past and he tells me he needed to be hospitalized in the ICU when he had his last bad reaction to that medication. The patient tells me he recently started back on Amlodipine due to poorly controlled blood pressure. The patient denies recent fevers, chills, productive cough. The patient apparenty was somew hat hypoxic and wheezing a fair amount with EMS. EMS administered nebs and Solumedrol and the patient says he improved and EMS thought his work of breathing improved as well. The patient never had a rash. - Related Data Allergies/Adverse Reactions: benztropine [From Cogentin] Allergy (Severe, Verified 04/08/19 22:51) Anaphylaxis codeine [Codeine] Allergy (Severe, Verified 04/08/19 22:51) HYPERACTIVE Penicillins Allergy (Mild, Verified 04/08/19 22:51) RASH Past Medical History - General Information source: Patient - Social History Smoking Status: Former Smoker Frequency of alcohol use: None Drug Abuse: None Lives with: Family Family History: COPD, Hypertension Patient has suicidal ideation: No Patient has homicidal ideation: No - Past Medical History Cardiac Medical History: Reports: Hx Congestive Heart Failure, Hx DVT, Hx Hypercholesterolemia, Hx Hypertension, Hx Pulmonary Embolism Denies: Hx Atrial Fibrillation, Hx Coronary Artery Disease, Hx Heart Attack, Hx Peripheral Vascular Disease, Hx Heart Murmur Pulmonary Medical History: Reports: Hx Asthma, Hx Bronchitis, Hx COPD, Hx Pneumonia, Hx Sleep Apnea Denies: Hx Respiratory Failure, Hx Tuberculosis Neurological Medical History: Denies: Hx Cerebrovascular Accident, Hx Seizures, Hx Parkinson's Disease Endocrine Medical History: Reports: Hx Diabetes Mellitus Type 2. Denies: Hx Graves' Disease, Hx Hyperthyroidism, Hx Hypothyroidism Renal/ Medical History: Denies: Hx Benign Prostatic Hyperplasia, Hx End Stage Renal Disease, Hx Kidney Stones, Hx Peritoneal Dialysis Malignancy Medical History: Denies Hx Leukemia, Denies Hx Lung Cancer GI Medical History: Reports: Hx Hiatal Hernia. Denies: Hx Cirrhosis, Hx Crohn's Disease, Hx Gastroesophageal Reflux Disease, Hx Hepatitis, Hx Irritable Bowel, Hx Liver Failure, Hx Pancreatitis, Hx Ulcer Musculoskeletal Medical History: Reports Hx Arthritis, Denies Hx Fibromyalgia, Denies Hx Multiple Sclerosis, Denies Hx Muscular Dystrophy, Denies Hx Systemic Lupus Erythematosus Psychiatric Medical History: Reports: Hx Anxiety, Hx Depression, Hx Post Traumatic Stress Disorder, Hx Schizoaffective Disorder, Hx Schizophrenia Denies: Hx Bipolar Disorder Traumatic Medical History: Reports: Hx Fractures Infectious Medical History: Denies: Hx Hepatitis, Hx HIV Past Surgical History: Reports: Hx Abdominal Surgery - hernia repair, Hx Cardiac Catheterization - 30% blockage, Hx Genitourinary Surgery - VASECTOMY, Hx Herniorrhaphy, Hx Oral Surgery - TOOTH EXTRACTION, Hx Orthopedic Surgery - PLATE SCREWS DISC AND BONE GRAFT: NECK, Hx Tonsillectomy. Denies: Hx Appendectomy, Hx Bowel Surgery, Hx Cholecystectomy, Hx Colostomy, Hx Coronary Artery Bypass Graft, Hx Gastric Bypass Surgery, Hx Open Heart Surgery, Hx Pacemaker - Immunizations Hx Diphtheria, Pertussis, Tetanus Vaccination: No Hx Pneumococcal Vaccination: 04/07/09 Review of Systems - Review of Systems Constitutional: No symptoms reported EENT: No symptoms reported Cardiovascular: No symptoms reported Respiratory: Cough, Short of breath, Wheezing Gastrointestinal: No symptoms reported Genitourinary: No symptoms reported Male Genitourinary: No symptoms reported Musculoskeletal: No symptoms reported Skin: Other - sweating Hematologic/Lymphatic: No symptoms reported Neurological/Psychological: No symptoms reported -: Yes All other systems reviewed and negative Physical Exam - Vital signs Vitals: Pulse Ox 100 05/20/19 02:33 - Notes Notes: GENERAL: Morbidly Obese, Chronically ill-appearing, well-nourished and in no acute distress. HEAD: Atraumatic, normocephalic. EYES: Pupils equal round and reactive to light, extraocular movements intact, sclera anicteric, conjunctiva are normal. ENT: TMs normal, nares patent, oropharynx clear without exudates. Moist mucous membranes. NECK: Normal range of motion, supple without lymphadenopathy or JVD. LUNGS: Mild diffuse wheezing. No rales or rhonchi. No increased work of breathing. HEART: Regular rate and rhythm without murmurs, rubs or gallops. ABDOMEN: Soft, nontender, normoactive bowel sounds. No guarding, no rebound. No masses appreciated. EXTREMITIES: Normal range of motion, no pitting or edema. No clubbing or cyano sis. NEUROLOGICAL: Cranial nerves II through XII grossly intact. Normal speech, normal gait. PSYCH: Normal mood, normal affect. SKIN: Warm, Dry, normal turgor, no rashes or lesions noted. Course - Re-evaluation Re-evalutation: 05/20/19 06:01 The patient was short of breath and had audible wheezing. The patient says his symptoms started after taking Amlodipine and he claims these symptoms have happened to him before when taking Amlodipine. The patient unlikely had an allergic reaction but it would be hard to know since the patient was treated with Solumedrol prior to ER arrival. The patient has many reasons to be short of breath since he has COPD, CHF, AUTUMN and he is morbidly obese. Patient felt better after treatment with EMS and in the ER. Patient had an unremarkable blood gas and clear chest xray and he is not desating on his home O2 requirement of 3L. Patient has bipap at home so he requested bipap while he was here in the ER. Patient is safe for outpatient follow up. - Vital Signs Vital signs: Temp Pulse Resp BP Pulse Ox 98.4 F 20 164/80 H 98 05/20/19 02:37 05/20/19 03:36 05/20/19 04:01 05/20/19 04:01 - Laboratory Result Diagrams: 05/20/19 02:55 05/20/19 02:55 Laboratory results interpreted by me: 05/20/19 05/20/19 05/20/19 02:55 02:55 02:55 RDW 14.2 H Potassium 3.5 L Carbon Dioxide 32 H Glucose 286 H Urine Protein 100 H Urine Glucose (UA) >=500 H - Diagnostic Test Radiology reviewed: Image reviewed, Reports reviewed - EKG Interpretation by Me EKG shows normal: Sinus rhythm, Sabin, Intervals, QRS Complexes Rate: Normal Rhythm: NSR When compared to previous EKG there are: No significant change Discharge - Discharge Clinical Impression: Shortness of breath COPD (chronic obstructive pulmonary disease) Qualifiers: COPD type: unspecified COPD Qualified Code(s): J44.9 - Chronic obstructive pulmonary disease, unspecified Condition: Stable Disposition: HOME, SELF-CARE Instructions: Chronic Obstructive Lung Disease ([facility]) Additional Instructions: Use your Nebulizer Treatments, Bipap, and Oxygen at home as needed. Follow up with your primary care doctor and tell him/her about your ER visit. If you feel that you are having adverse reactions to Amlodipine, stop taking this medication and speak with your primary care doctor about an alternate blood pressure medication.
[2019-05-20 03:15] LABS: ABSOLUTE EOSINOPHILS # (AUTO) 0.4 10^3/uL (0.0-0.6); ABSOLUTE LYMPHOCYTES (AUTO) 1.7 10^3/uL (0.5-4.7); ABSOLUTE MONOCYTES (AUTO) 0.6 10^3/uL (0.1-1.4); ABSOLUTE NEUT (AUTO) 5.3 10^3/uL (1.7-8.2); BASOPHILS % (AUTO) 0.6 % (0-2); EOSINOPHILS % (AUTO) 4.6 % (0-6); HEMATOCRIT 40.6 % (37.9-51.0); HEMOGLOBIN 13.9 g/dL (13.5-17.0); LYMPHOCYTES % (AUTO) 21.3 % (13-45); MEAN CORPUSCULAR HGB CONC 34.2 g/dL (32.0-36.0); MEAN CORPUSCULAR VOLUME 88 fl (80-97); MONOCYTES % (AUTO) 7.3 % (3-13); PLATELET COUNT 215 10^3/uL (150-450); RED BLOOD COUNT 4.63 10^6/uL (4.35-5.55); RED CELL DISTRIBUTION WIDTH 14.2 % (11.5-14.0); SEGMENTED NEUTROPHILS % (AUTO) 66.2 % (42-78); TOTAL CELLS COUNTED % (AUTO) 100 %
[2019-05-20 03:22] LABS: APPEARANCE,URINE SLIGHTLY-CLOUDY; BILIRUBIN,URINE NEGATIVE (NEGATIVE); COLOR,URINE YELLOW; GLUCOSE, URINE >=500 mg/dL (NEGATIVE); KETONES,URINE NEGATIVE (NEGATIVE); LEUKOCYTE ESTERASE,URINE NEGATIVE (NEGATIVE); NITRITE,URINE NEGATIVE (NEGATIVE); PROTEIN,URINE 100 mg/dL (NEGATIVE); URINE SPECIFIC GRAVITY 1.005; UROBILINOGEN,URINE NEGATIVE mg/dL (<2.0)
[2019-05-20 03:29] LABS: ALKALINE PHOSPHATASE 87 U/L (38-126); ANION GAP 9 (5-19); ASPARTATE AMINO TRANSFERASE 22 U/L (17-59); BILIRUBIN,DIRECT 0.3 mg/dL (0.0-0.4); BILIRUBIN,TOTAL 0.4 mg/dL (0.2-1.3); BLOOD UREA NITROGEN 19 mg/dL (7-20); CALCIUM 9.7 mg/dL (8.4-10.2); CARBON DIOXIDE 32 mmol/L (22-30); CHLORIDE 99 mmol/L (98-107); GLUCOSE 286 mg/dL (75-110); POTASSIUM 3.5 mmol/L (3.6-5.0); TOTAL PROTEIN 7.6 g/dL (6.3-8.2)
[2019-05-20 04:01] LABS: NT PRO BNP 103 pg/mL (<125)
[2019-05-20 04:03] LABS: TROPONIN I < 0.012 ng/mL
--- NOTE | 2019-05-20 04:09 | RADIOLOGY REPORT (SQ) ---
Chest one view on 05/20/2019 3:52 AM CLINICAL INDICATION: Shortness of breath COMPARISON: 05/05/2019 FINDINGS: Heart is upper limits normal for size. The lungs are clear. Hilar and mediastinal contours are within normal limits. Pulmonary vascularity is within normal limits. IMPRESSION: No acute disease.
[2019-05-20 05:43] LABS: VENOUS BLOOD BASE EXCESS 2.3 mmol/L; VENOUS BLOOD HCO3 29.2 mmol/L (20-32); VENOUS BLOOD PCO2 54.9 mmHg (35-63); VENOUS BLOOD PH 7.34 (7.30-7.42)
[2019-05-20 07:02] VITALS: BP 193/88
--- NOTE | 2019-05-20 09:05 | EKG REPORT ---
SEVERITY:- BORDERLINE ECG - SINUS RHYTHM NONSPECIFIC ST-T CHANGES LATERAL LEADS, NEW CHANGE SINCE 05/05/19 EKG, CLINICAL CORRELATION NEEDED. : Confirmed by: Richard Go MD 20-May-2019 07:09:49
== END 2019-05-20 06:51 | disposition home or self-care (01) ==
LOC: ER 02:26
DX: J44.9 Chronic obstructive pulmonary disease, unspecified (principal); E66.01 Morbid (severe) obesity due to excess calories; I11.0 Hypertensive heart disease with heart failure; I50.9 Heart failure, unspecified; R06.02 Shortness of breath; R61 Generalized hyperhidrosis; R05 Cough; E11.9 Type 2 diabetes mellitus without complications; G47.33 Obstructive sleep apnea (adult) (pediatric); Z99.89 Dependence on other enabling machines and devices; Z99.81 Dependence on supplemental oxygen; Z88.6 Allergy status to analgesic agent; Z88.5 Allergy status to narcotic agent; Z88.0 Allergy status to penicillin; Z87.891 Personal history of nicotine dependence; Z87.01 Personal history of pneumonia (recurrent)
CPT/HCPCS: 36415; 71045; 80053; 81001; 82803; 83880; 84484; 85025; 93005; 93010; 94640; 94660; 99285

== ENCOUNTER 2019-06-13 04:12 | Emergency (ER) | payer MEDICARE, MEDICAID ==
[2019-06-13] MEDS ORDERED: HYDRALAZINE HCL INJ/PF 20 MG/1 ML SDV IV ONE (08:01)
[2019-06-13 10:39] VITALS: BP 171/86
--- NOTE | 2019-06-13 14:18 | ER Document Report ---
Entered by WILFREDO HAWK SCRIBE 06/13/19 0642 Acting as scribe for:NIMCO STEELE MD ED Blood Pressure Problem - General Chief Complaint: Blood Pressure Problem Stated Complaint: HIGH BLOOD PRESSURE Time Seen by Provider: 06/13/19 06:41 Primary Care Provider: MARILOU MASON DO [Primary Care Provider] - Follow up as needed Mode of Arrival: Ambulatory Information source: Patient Notes: This 63 year old schizophrenic male patient presents to the emergency department today for complaints of elevated blood pressures. 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 Patient states after this "experiment" concluded he was put on 50 mg of losartan but it had a "reverse effect", stating that 50 mg of losartan once daily is "raising his blood pressure". Patient is an incredibly poor historian so history is limited. TRAVEL OUTSIDE OF THE [place] IN LAST 30 DAYS: No - Related Data Allergies/Adverse Reactions: benztropine [From Cogentin] Allergy (Severe, Verified 04/08/19 22:51) Anaphylaxis codeine [Codeine] Allergy (Severe, Verified 04/08/19 22:51) HYPERACTIVE Penicillins Allergy (Mild, Verified 04/08/19 22:51) RASH Past Medical History - General Information source: Patient - Social History Smoking Status: Never Smoker Cigarette use (# per day): No Chew tobacco use (# tins/day): No Frequency of alcohol use: None Drug Abuse: None Family History: COPD, Hypertension Patient has suicidal ideation: No Patient has homicidal ideation: No - Past Medical History Cardiac Medical History: Reports: Hx Congestive Heart Failure, Hx DVT, Hx Hypercholesterolemia, Hx Hypertension, Hx Pulmonary Embolism Pulmonary Medical History: Reports: Hx Asthma, Hx Bronchitis, Hx COPD, Hx Pneumonia, Hx Sleep Apnea Endocrine Medical History: Reports: Hx Diabetes Mellitus Type 2 GI Medical History: Reports: Hx Hiatal Hernia Musculoskeletal Medical History: Reports Hx Arthritis Psychiatric Medical History: Reports: Hx Anxiety, Hx Depression, Hx Post Traumatic Stress Disorder, Hx Schizoaffective Disorder, Hx Schizophrenia Traumatic Medical History: Reports: Hx Fractures Past Surgical History: Reports: Hx Abdominal Surgery - hernia repair, Hx Cardiac Catheterization - 30% blockage, Hx Genitourinary Surgery - VASECTOMY, Hx Herniorrhaphy, Hx Oral Surgery - TOOTH EXTRACTION, Hx Orthopedic Surgery - PLATE SCREWS DISC AND BONE GRAFT: NECK, Hx Tonsillectomy - Immunizations Hx Diphtheria, Pertussis, Tetanus Vaccination: No Hx Pneumococcal Vaccination: 04/07/09 Review of Systems - Review of Systems Constitutional: See HPI, Other - elevated blood pressures EENT: No symptoms reported Cardiovascular: denies: Chest pain Respiratory: denies: Short of breath Gastrointestinal: No symptoms reported Genitourinary: No symptoms reported Male Genitourinary: No symptoms reported Musculoskeletal: No symptoms reported Skin: No symptoms reported Hematologic/Lymphatic: No symptoms reported Neurological/Psychological: No symptoms reported -: Yes All other systems reviewed and negative Physical Exam - Vital signs Vitals: Temp Pulse Resp BP Pulse Ox 98.3 F 81 22 H 192/102 H 96 06/13/19 04:47 06/13/19 04:47 06/13/19 04:47 06/13/19 04:47 06/13/19 04:47 - Notes Notes: Physical Exam: General: Alert, morbidly obese, non-toxic appearing. HEENT: Normocephalic. Atraumatic. PERRL. Extraocular movements intact. Oropharynx clear. Neck: Supple. Non-tender. Respiratory: No respiratory distress. Distant breath sounds due to body habitus. Clear and equal breath sounds bilaterally. Cardiovascular: Regular rate and rhythm. Abdominal: Morbidly obese. No distension. Normal Bowel Sounds. Back: No gross abnormalities. Extremities: Moves all four extremities. Upper extremities: Normal inspection. Normal ROM. Lower extremities: Normal inspection. No edema. Normal ROM. Neurological: Normal cognition. AAOx4. Normal speech. Psychological: At baseline Skin: Warm. Dry. Normal color. Course - Re-evaluation Re-evalutation: 06/13/19 14:14 Patient alert and oriented showing no signs of acute distress patient's blood pressure has improved after IV hydralazine. Patient is placed on antihypertensive medication lisinopril/HCTZ to further control his hypertension. - Vital Signs Vital signs: Temp Pulse Resp BP Pulse Ox 98.7 F 81 18 171/86 H 95 06/13/19 07:33 06/13/19 04:47 06/13/19 07:33 06/13/19 10:30 06/13/19 09:01 Discharge - Discharge Clinical Impression: Hypertension, Morbid obesity with BMI of 50.0-59.9, adult Disposition: HOME, SELF-CARE Prescriptions: Lisinopril/Hydrochlorothiazide [Lisinopril-Hctz 20-25 mg Tab] 1 each PO DAILY #30 tablet Forms: Elevated Blood Pressure Referrals: MARILOU MASON DO [Primary Care Provider] - Follow up as needed I personally performed the services described in the documentation, reviewed and edited the documentation which was dictated to the scribe in my presence, and it accurately records my words and actions.
== END 2019-06-13 10:40 | disposition home or self-care (01) ==
LOC: ER 04:12
DX: I10 Essential (primary) hypertension (principal); Z79.899 Other long term (current) drug therapy; E66.01 Morbid (severe) obesity due to excess calories; Z68.43 Body mass index [BMI] 50.0-59.9, adult; J44.9 Chronic obstructive pulmonary disease, unspecified; E11.9 Type 2 diabetes mellitus without complications; Z87.892 Personal history of anaphylaxis; Z88.8 Allergy status to other drugs, medicaments and biological substances; Z88.6 Allergy status to analgesic agent; Z88.5 Allergy status to narcotic agent; Z88.0 Allergy status to penicillin
CPT/HCPCS: 99283; 96374; J0360

== ENCOUNTER 2019-06-15 13:11 | Emergency (ER) | payer MEDICARE, MEDICAID ==
--- NOTE | 2019-06-15 14:15 | ER Document Report ---
ED Medical Screen (RME) - General Chief Complaint: Possible Kidney Stone Stated Complaint: POSSIBLE KIDNEY STONE Time Seen by Provider: 06/15/19 14:12 Primary Care Provider: MARILOU MASON DO [Primary Care Provider] - Follow up as needed Mode of Arrival: Ambulatory Information source: Patient Notes: 63-year-old male presented to ED for complaint of possible kidney stones. He states Dr. Mullins sent him straight over to the hospital to get a CT but he did not give you a paper an order for the CT. States he saw Dr. Link last week and was told to go to the ER in a week and get a CT. I have greeted and performed a rapid initial assessment of this patient. A comprehensive ED assessment and evaluation of the patient, analysis of test results and completion of medical decision making process will be conducted by an additional ED providers. TRAVEL OUTSIDE OF THE [place] IN LAST 30 DAYS: No - Related Data Allergies/Adverse Reactions: benztropine [From Cogentin] Allergy (Severe, Verified 06/15/19 14:08) Anaphylaxis codeine [Codeine] Allergy (Severe, Verified 06/15/19 14:08) HYPERACTIVE Penicillins Allergy (Mild, Verified 06/15/19 14:08) RASH Past Medical History - Past Medical History Cardiac Medical History: Reports: Hx Congestive Heart Failure, Hx DVT, Hx Hypercholesterolemia, Hx Hypertension, Hx Pulmonary Embolism Denies: Hx Atrial Fibrillation, Hx Coronary Artery Disease, Hx Heart Attack, Hx Peripheral Vascular Disease, Hx Heart Murmur Pulmonary Medical History: Reports: Hx Asthma, Hx Bronchitis, Hx COPD, Hx Pneumonia, Hx Sleep Apnea Denies: Hx Respiratory Failure, Hx Tuberculosis Neurological Medical History: Denies: Hx Cerebrovascular Accident, Hx Seizures, Hx Parkinson's Disease Endocrine Medical History: Reports: Hx Diabetes Mellitus Type 2. Denies: Hx Graves' Disease, Hx Hyperthyroidism, Hx Hypothyroidism Renal/ Medical History: Denies: Hx Benign Prostatic Hyperplasia, Hx End Stage Renal Disease, Hx Kidney Stones, Hx Peritoneal Dialysis Malignancy Medical History: Denies Hx Leukemia, Denies Hx Lung Cancer GI Medical History: Reports: Hx Hiatal Hernia. Denies: Hx Cirrhosis, Hx Crohn's Disease, Hx Gastroesophageal Reflux Disease, Hx Hepatitis, Hx Irritable Bowel, Hx Liver Failure, Hx Pancreatitis, Hx Ulcer Musculoskeltal Medical History: Reports Hx Arthritis, Denies Hx Fibromyalgia, Denies Hx Multiple Sclerosis, Denies Hx Muscular Dystrophy, Denies Hx Systemic Lupus Erythematosus Psychiatric Medical History: Reports: Hx Anxiety, Hx Depression, Hx Post Traumatic Stress Disorder, Hx Schizoaffective Disorder, Hx Schizophrenia Denies: Hx Bipolar Disorder Traumatic Medical History: Reports: Hx Fractures Infectious Medical History: Denies: Hx Hepatitis, Hx HIV Past Surgical History: Reports: Hx Abdominal Surgery - hernia repair, Hx Cardiac Catheterization - 30% blockage, Hx Genitourinary Surgery - VASECTOMY, Hx Herniorrhaphy, Hx Oral Surgery - TOOTH EXTRACTION, Hx Orthopedic Surgery - PLATE SCREWS DISC AND BONE GRAFT: NECK, Hx Tonsillectomy. Denies: Hx Appendectomy, Hx Bowel Surgery, Hx Cholecystectomy, Hx Colostomy, Hx Coronary Artery Bypass Graft, Hx Gastric Bypass Surgery, Hx Open Heart Surgery, Hx Pacemaker - Immunizations Hx Diphtheria, Pertussis, Tetanus Vaccination: No Physical Exam - Vital signs Vitals: Temp Pulse Resp BP Pulse Ox 98.0 F 76 18 211/102 H 94 06/15/19 13:17 06/15/19 13:17 06/15/19 13:17 06/15/19 13:17 06/15/19 13:17 Course - Vital Signs Vital signs: Temp Pulse Resp BP Pulse Ox 98.0 F 76 18 211/102 H 94 06/15/19 13:17 06/15/19 13:17 06/15/19 13:17 06/15/19 13:17 06/15/19 13:17 Doctor's Discharge - Discharge Referrals: MARILOU MASON, [Primary Care Provider] - Follow up as needed
[2019-06-15] MEDS ORDERED: CLONIDINE HCL 0.1 MG TABLET PO ONE (14:54)
--- NOTE | 2019-06-15 14:58 | ER Document Report ---
ED General - General Chief Complaint: Possible Kidney Stone Stated Complaint: POSSIBLE KIDNEY STONE Time Seen by Provider: 06/15/19 14:12 Primary Care Provider: MARILOU MASON DO [NO LOCAL MD] - Follow up as needed Mode of Arrival: Ambulatory TRAVEL OUTSIDE OF THE [place] IN LAST 30 DAYS: No - HPI Notes: Patient is a 63-year-old male with a history of hypertension presents complaining of having a 9 mm kidney stone unsure of which side and requesting CT scan. Patient states that he was sent by Dr. Link, urology, for CT scan as he has a follow-up later this week with him to get the stone taken care of. Patient states that on occasion he does notice some hematuria. He does have bilateral low back pain, but always has back pain and is not sure if this is stone related or not. Patient states that the pain is otherwise bearable. He is able to eat and drink without difficulty. He is having normal bowel movements. No other concerns or complaints. Patient states that he does take his blood pressure medicine at midnight every day. He was restarted on new blood pressure medicine 2 days ago from the ED. Denies any headache, fever, URI, sore throat, chest pain, palpitations, syncope, cough, shortness of breath, wheeze, dyspnea, abdominal pain, nausea/vomiting/diarrhea, urinary retention, dysuria, loss of control of bowel or bladder, numbness/tingling, saddle anesthesia, muscle paralysis/weakness, or rash. - Related Data Allergies/Adverse Reactions: benztropine [From Cogentin] Allergy (Severe, Verified 06/15/19 14:08) Anaphylaxis codeine [Codeine] Allergy (Severe, Verified 06/15/19 14:08) HYPERACTIVE Penicillins Allergy (Mild, Verified 06/15/19 14:08) RASH Past Medical History - General Information source: Patient - Social History Smoking Status: Former Smoker Family History: COPD, Hypertension Patient has suicidal ideation: No Patient has homicidal ideation: No - Past Medical History Cardiac Medical History: Reports: Hx Congestive Heart Failure, Hx DVT, Hx Hypercholesterolemia, Hx Hypertension, Hx Pulmonary Embolism Denies: Hx Atrial Fibrillation, Hx Coronary Artery Disease, Hx Heart Attack, Hx Peripheral Vascular Disease, Hx Heart Murmur Pulmonary Medical History: Reports: Hx Asthma, Hx Bronchitis, Hx COPD, Hx Pneumonia, Hx Sleep Apnea Denies: Hx Respiratory Failure, Hx Tuberculosis Neurological Medical History: Denies: Hx Cerebrovascular Accident, Hx Seizures, Hx Parkinson's Disease Endocrine Medical History: Reports: Hx Diabetes Mellitus Type 2. Denies: Hx Graves' Disease, Hx Hyperthyroidism, Hx Hypothyroidism Renal/ Medical History: Denies: Hx Benign Prostatic Hyperplasia, Hx End Stage Renal Disease, Hx Kidney Stones, Hx Peritoneal Dialysis Malignancy Medical History: Denies Hx Leukemia, Denies Hx Lung Cancer GI Medical History: Reports: Hx Hiatal Hernia. Denies: Hx Cirrhosis, Hx Crohn's Disease, Hx Gastroesophageal Reflux Disease, Hx Hepatitis, Hx Irritable Bowel, Hx Liver Failure, Hx Pancreatitis, Hx Ulcer Musculoskeletal Medical History: Reports Hx Arthritis, Denies Hx Fibromyalgia, Denies Hx Multiple Sclerosis, Denies Hx Muscular Dystrophy, Denies Hx Systemic Lupus Erythematosus Psychiatric Medical History: Reports: Hx Anxiety, Hx Depression, Hx Post Traumatic Stress Disorder, Hx Schizoaffective Disorder, Hx Schizophrenia Denies: Hx Bipolar Disorder Traumatic Medical History: Reports: Hx Fractures Infectious Medical History: Denies: Hx Hepatitis, Hx HIV Past Surgical History: Reports: Hx Abdominal Surgery - hernia repair, Hx Cardiac Catheterization - 30% blockage, Hx Genitourinary Surgery - VASECTOMY, Hx Herniorrhaphy, Hx Oral Surgery - TOOTH EXTRACTION, Hx Orthopedic Surgery - PLATE SCREWS DISC AND BONE GRAFT: NECK, Hx Tonsillectomy. Denies: Hx Appendectomy, Hx Bowel Surgery, Hx Cholecystectomy, Hx Colostomy, Hx Coronary Artery Bypass Graft, Hx Gastric Bypass Surgery, Hx Open Heart Surgery, Hx Pacemaker - Immunizations Hx Diphtheria, Pertussis, Tetanus Vaccination: No Hx Pneumococcal Vaccination: 04/07/09 Review of Systems - Review of Systems -: Yes All other systems reviewed and negative Physical Exam - Vital signs Vitals: Temp Pulse Resp BP Pulse Ox 98.0 F 76 18 211/102 H 94 06/15/19 13:17 06/15/19 13:17 06/15/19 13:17 06/15/19 13:17 06/15/19 13:17 - Notes Notes: PHYSICAL EXAMINATION: GENERAL: Well-appearing, well-nourished and in no acute distress. HEAD: Atraumatic, normocephalic. EYES: Pupils equal round and reactive to light, extraocular movements intact, sclera anicteric, conjunctiva are normal. ENT: Nares patent and without discharge. oropharynx clear without exudates. No tonsilar hypertrophy or erythema. Moist mucous membranes. NECK: Normal range of motion, supple without lymphadenopathy LUNGS: Breath sounds clear to auscultation bilaterally and equal. No wheezes rales or rhonchi. HEART: Regular rate and rhythm without murmurs, rubs, gallops. ABDOMEN: Soft, nontender, nondistended abdomen. No guarding, no rebound. Normal bowel sounds present. No CVA tenderness bilaterally. Morbid obesity. Musculoskeletal: FROM to passive/active. Strength 5+/5. Extremities: No cyanosis, clubbing, or edema b/l. Peripheral pulses 2+. Capillary refill less than 3 seconds. NEUROLOGICAL: Normal speech, normal gait. PSYCH: Normal mood, normal affect. SKIN: Warm, Dry, normal turgor, no rashes or lesions noted. Course - Re-evaluation Re-evalutation: 06/15/19 16:28 Patient is an afebrile, well-hydrated, 63-year-old male who presents to the ED with b/l back pain, suspect benign. Vitals are acceptable. PE is otherwise unremarkable for any focal neurological deficits. Labs/imaging unremarkable aside from gallstones (pt currently asymptomatic). Pt's abd is soft and non- tender. He has no significant tachycardia, tachypnea, or hypoxia. He is nontoxic-appearing and is tolerating p.o. without difficulties. There are no signs of infection. No other red flag symptoms noted. No other labs or imaging warranted at this time based on H&P. Low suspicion for acute appendicitis, bowel obstruction, acute cholecystitis, perforated diverticulitis, incarcerated hernia, pancreatitis, perforated ulcer, peritonitis, sepsis, testicular torsion, meningitis, fracture, expanding/ruptured AAA, cauda equina syndrome, epidural mass lesion/abscess, herniated disc causing severe spinal stenosis, or other systemic infection at this time. Patient is aware that his condition can change from initial presentation and that he needs monitor symptoms closely for any acute changes. BP precautions reviewed. Pt given one dose of clonidine here. Conservative measures otherwise for symptoms. Recheck with your PCM in 3-5 days. Schedule consult with general surgery. Return to the ED with any worsening/concerning symptoms otherwise as reviewed discharge. Patient is in agreement. - Vital Signs Vital signs: Temp Pulse Resp BP Pulse Ox 98.0 F 76 18 175/109 H 94 06/15/19 13:17 06/15/19 13:17 06/15/19 13:17 06/15/19 16:01 06/15/19 13:17 - Laboratory Result Diagrams: 06/15/19 15:10 06/15/19 15:10 Laboratory results interpreted by me: 06/15/19 06/15/19 15:10 15:10 RDW 14.3 H Carbon Dioxide 32 H BUN 24 H Glucose 216 H Calcium 11.6 H Discharge - Discharge Clinical Impression: Bilateral back pain Qualifiers: Back pain location: low back pain Chronicity: unspecified Sciatica presence: without sciatica Qualified Code(s): M54.5 - Low back pain Condition: Stable Disposition: HOME, SELF-CARE Additional Instructions: Rest, Ice Tylenol/ibuprofen as needed Light stretches daily Strength exercises as able Moist heat and massage may help Monitor blood pressure daily and continue taking blood pressure medications as directed. Low-sodium/low-fat diet F/u with your PCP in 3-5 days for a recheck Consider consult(s) with Orthopedics/physical therapy for ongoing/worsening symptoms Schedule appointment with general surgery for further evaluation and management of your gallstones Return to the ED with any worsening symptoms and/or development of fever, headache, chest pain, palpitations, syncope, shortness of breath, trouble breathing, abdominal pain, n/v/d, blood in stool/urine, loss of control of bowel/bladder, urinary retention, muscle weakness/paralysis, saddle anesthesia, numbness/tingling, or other worsening symptoms that are concerning to you. Forms: Elevated Blood Pressure Referrals: MARILOU MASON DO [NO LOCAL MD] - Follow up as needed CHRIS MCCULLOUGH MD [ACTIVE STAFF] - Follow up as needed
[2019-06-15 15:16] LABS: APPEARANCE,URINE CLEAR; BILIRUBIN,URINE NEGATIVE (NEGATIVE); COLOR,URINE YELLOW; GLUCOSE, URINE NEGATIVE (NEGATIVE); KETONES,URINE NEGATIVE (NEGATIVE); PROTEIN,URINE NEGATIVE (NEGATIVE); URINE SPECIFIC GRAVITY 1.006; UROBILINOGEN,URINE NEGATIVE mg/dL (<2.0)
[2019-06-15 15:31] LABS: ABSOLUTE BASOPHILS # (AUTO) 0.1 10^3/uL (0.0-0.2); ABSOLUTE EOSINOPHILS # (AUTO) 0.4 10^3/uL (0.0-0.6); ABSOLUTE LYMPHOCYTES (AUTO) 1.3 10^3/uL (0.5-4.7); ABSOLUTE MONOCYTES (AUTO) 0.5 10^3/uL (0.1-1.4); ABSOLUTE NEUT (AUTO) 5.3 10^3/uL (1.7-8.2); BASOPHILS % (AUTO) 0.7 % (0-2); EOSINOPHILS % (AUTO) 4.8 % (0-6); HEMATOCRIT 47.4 % (37.9-51.0); LYMPHOCYTES % (AUTO) 17.7 % (13-45); MEAN CORPUSCULAR HEMOGLOBIN 29.4 pg (27.0-33.4); MEAN CORPUSCULAR HGB CONC 33.8 g/dL (32.0-36.0); MEAN CORPUSCULAR VOLUME 87 fl (80-97); MONOCYTES % (AUTO) 6.6 % (3-13); PLATELET COUNT 230 10^3/uL (150-450); RED BLOOD COUNT 5.45 10^6/uL (4.35-5.55); RED CELL DISTRIBUTION WIDTH 14.3 % (11.5-14.0); SEGMENTED NEUTROPHILS % (AUTO) 70.2 % (42-78); TOTAL CELLS COUNTED % (AUTO) 100 %; WHITE BLOOD COUNT 7.5 10^3/uL (4.0-10.5)
--- NOTE | 2019-06-15 15:37 | RADIOLOGY REPORT (SQ) ---
EXAM DESCRIPTION: CT ABD/PELVIS NO ORAL OR IV COMPLETED DATE/TIME: 06/15/2019 3:06 pm REASON FOR STUDY: bilateral flank pain COMPARISON: 02/20/2019 TECHNIQUE: CT scan of the abdomen and pelvis performed without intravenous or oral contrast. Images reviewed with lung, soft tissue, and bone windows. Reconstructed coronal and sagittal MPR images revi ewed. All images stored on PACS. All CT scanners at this facility use dose modulation, iterative reconstruction, and/or weight based d osing when appropriate to reduce radiation dose to as low as reasonably achievable (ALARA). [facility]: Dose Right [facility]: CareDose [facility]: Dose Right [facility]: Teradose 4D [facility]: Smart [employer] RADIATION DOSE: CT Rad equipment meets quality standard of care and radiation dose reduction techniq ues were employed. CTDIvol: 30.0 mGy. DLP: 1635 mGy-cm.mGy. LIMITATIONS: None. FINDINGS: LOWER CHEST: No significant findings. No nodules or infiltrates. NON-CONTRASTED LIVER, SPLEEN, ADRENALS: Stable right adrenal nodule measuring -18 HU consistent with adenoma. PANCREAS: No masses. No peripancreatic inflammatory changes. GALLBLADDER: Gallstones. No inflammatory changes to suggest cholecystitis. RIGHT KIDNEY AND URETER: No suspicious masses. Assessment limited by lack of IV contrast. No signif icant calcifications. No hydronephrosis or hydroureter. LEFT KIDNEY AND URETER: No suspicious masses. Assessment limited by lack of IV contrast. No signifi cant calcifications. No hydronephrosis or hydroureter. AORTA AND RETROPERITONEUM: No aneurysm. No retroperitoneal masses or adenopathy. BOWEL AND PERITONEAL CAVITY: No obvious masses or inflammatory changes. No free fluid. APPENDIX: Normal. PELVIS, BLADDER, AND ABDOMINAL WALL:No abnormal masses. No free fluid. Bladder normal. BONES: No significant findings. OTHER: No other significant finding. IMPRESSION: 1. Cholelithiasis without evidence of cholecystitis. 2. Right adrenal adenoma. COMMENT: Quality ID # [id number]: Final reports with documentation of one or more dose reduction techniques (e.g., Automated exposure control, adjustment of the mA and/or kV according to patient size, use of iterative reconstruction technique) TECHNICAL DOCUMENTATION: JOB ID: [id number] 2010 [employer]- All Rights Reserved Reading location - IP/workstation name: [email or web address]
[2019-06-15 15:41] LABS: HYALINE CASTS, URINE 0-1 /LPF
[2019-06-15 15:51] LABS: ALBUMIN 4.2 g/dL (3.5-5.0); ALKALINE PHOSPHATASE 94 U/L (38-126); ANION GAP 8 (5-19); ASPARTATE AMINO TRANSFERASE 21 U/L (17-59); BILIRUBIN,DIRECT 0.1 mg/dL (0.0-0.4); BILIRUBIN,TOTAL 0.6 mg/dL (0.2-1.3); BLOOD UREA NITROGEN 24 mg/dL (7-20); CALCIUM 11.6 mg/dL (8.4-10.2); CARBON DIOXIDE 32 mmol/L (22-30); CHLORIDE 99 mmol/L (98-107); GLUCOSE 216 mg/dL (75-110); POTASSIUM 3.8 mmol/L (3.6-5.0); TOTAL PROTEIN 7.8 g/dL (6.3-8.2)
[2019-06-15 16:06] VITALS: BP 175/109
== END 2019-06-15 16:51 | disposition home or self-care (01) ==
LOC: ER 13:11
DX: M54.5 Low back pain (principal); R31.0 Gross hematuria; K80.20 Calculus of gallbladder without cholecystitis without obstruction; I10 Essential (primary) hypertension; J44.9 Chronic obstructive pulmonary disease, unspecified; E11.9 Type 2 diabetes mellitus without complications; Z88.8 Allergy status to other drugs, medicaments and biological substances; Z88.6 Allergy status to analgesic agent; Z88.5 Allergy status to narcotic agent; Z88.0 Allergy status to penicillin; Z87.891 Personal history of nicotine dependence
CPT/HCPCS: 99284; 36415; 85025; 80053; 81001; 74176; A9270

== ENCOUNTER 2019-12-06 14:00 | Emergency (ER) | payer MEDICARE, MEDICAID ==
--- NOTE | 2019-12-06 14:54 | ER Document Report ---
ED Medical Screen (RME) - General Chief Complaint: Breathing Difficulty Stated Complaint: BREATHING PROBLEMS Time Seen by Provider: 12/06/19 14:50 Primary Care Provider: HAI WEISS MD [Primary Care Provider] - Follow up as needed Mode of Arrival: Wheelchair Information source: Patient Notes: Patient states that he was taking a pill and choked on the pill. Patient states he feels as though the pill went down the right bronchus into the lobe of his lung. Patient complains of sore throat and shortness of breath. Patient was brought here by EMS and states that he did continue to cough and feels that he was able to cough up the majority of the pill. Patient complains of feeling as though his throat is swelling. Patient with continued mild shortness of breath. I have greeted and performed a rapid initial assessment of this patient. A comprehensive ED assessment and evaluation of the patient, analysis of test results and completion of the medical decision making process will be conducted by additional ED providers. TRAVEL OUTSIDE OF THE [place] IN LAST 30 DAYS: No - Related Data Allergies/Adverse Reactions: benztropine [From Cogentin] Allergy (Severe, Verified 06/15/19 14:08) Anaphylaxis codeine [Codeine] Allergy (Severe, Verified 06/15/19 14:08) HYPERACTIVE Penicillins Allergy (Mild, Verified 06/15/19 14:08) RASH Past Medical History - Social History Frequency of alcohol use: None Drug Abuse: None - Past Medical History Cardiac Medical History: Reports: Hx Congestive Heart Failure, Hx DVT, Hx Hypercholesterolemia, Hx Hypertension, Hx Pulmonary Embolism Denies: Hx Atrial Fibrillation, Hx Coronary Artery Disease, Hx Heart Attack, Hx Peripheral Vascular Disease, Hx Heart Murmur Pulmonary Medical History: Reports: Hx Asthma, Hx Bronchitis, Hx COPD, Hx Pneumonia, Hx Sleep Apnea Denies: Hx Respiratory Failure, Hx Tuberculosis Neurological Medical History: Denies: Hx Cerebrovascular Accident, Hx Seizures, Hx Parkinson's Disease Endocrine Medical History: Reports: Hx Diabetes Mellitus Type 2. Denies: Hx Graves' Disease, Hx Hyperthyroidism, Hx Hypothyroidism Renal/ Medical History: Denies: Hx Benign Prostatic Hyperplasia, Hx End Stage Renal Disease, Hx Kidney Stones, Hx Peritoneal Dialysis Malignancy Medical History: Denies Hx Leukemia, Denies Hx Lung Cancer GI Medical History: Reports: Hx Hiatal Hernia. Denies: Hx Cirrhosis, Hx Crohn's Disease, Hx Gastroesophageal Reflux Disease, Hx Hepatitis, Hx Irritable Bowel, Hx Liver Failure, Hx Pancreatitis, Hx Ulcer Musculoskeltal Medical History: Reports Hx Arthritis, Denies Hx Fibromyalgia, Denies Hx Multiple Sclerosis, Denies Hx Muscular Dystrophy, Denies Hx Systemic Lupus Erythematosus Psychiatric Medical History: Reports: Hx Anxiety, Hx Depression, Hx Post Traumatic Stress Disorder, Hx Schizoaffective Disorder, Hx Schizophrenia Denies: Hx Bipolar Disorder Traumatic Medical History: Reports: Hx Fractures Infectious Medical History: Denies: Hx Hepatitis, Hx HIV Past Surgical History: Reports: Hx Abdominal Surgery - hernia repair, Hx Cardiac Catheterization - 30% blockage, Hx Genitourinary Surgery - VASECTOMY, Hx Herniorrhaphy, Hx Oral Surgery - TOOTH EXTRACTION, Hx Orthopedic Surgery - PLATE SCREWS DISC AND BONE GRAFT: NECK, Hx Tonsillectomy. Denies: Hx Appendectomy, Hx Bowel Surgery, Hx Cholecystectomy, Hx Colostomy, Hx Coronary Artery Bypass Graft, Hx Gastric Bypass Surgery, Hx Open Heart Surgery, Hx Pacemaker - Immunizations Hx Diphtheria, Pertussis, Tetanus Vaccination: No Physical Exam - Vital signs Vitals: Temp Pulse Resp BP Pulse Ox 99.3 F 81 20 184/93 H 97 12/06/19 14:32 12/06/19 14:32 12/06/19 14:32 12/06/19 14:32 12/06/19 14:32 - Respiratory Respiratory status: No respiratory distress Breath sounds: Nonproductive cough, Other - Diminished in the bases bilaterally - Cardiovascular Rhythm: Regular Heart sounds: S1 appreciated, S2 appreciated Course - Vital Signs Vital signs: Temp Pulse Resp BP Pulse Ox 99.3 F 81 20 184/93 H 97 12/06/19 14:32 12/06/19 14:32 12/06/19 14:32 12/06/19 14:32 12/06/19 14:32 Doctor's Discharge - Discharge Referrals: HAI WEISS MD [Primary Care Provider] - Follow up as needed
[2019-12-06 15:41] LABS: ABSOLUTE EOSINOPHILS # (AUTO) 0.2 10^3/uL (0.0-0.6); ABSOLUTE MONOCYTES (AUTO) 0.4 10^3/uL (0.1-1.4); ABSOLUTE NEUT (AUTO) 6.8 10^3/uL (1.7-8.2); BASOPHILS % (AUTO) 0.5 % (0-2); EOSINOPHILS % (AUTO) 2.5 % (0-6); HEMATOCRIT 45.5 % (37.9-51.0); HEMOGLOBIN 15.4 g/dL (13.5-17.0); LYMPHOCYTES % (AUTO) 11.4 % (13-45); MEAN CORPUSCULAR HEMOGLOBIN 29.4 pg (27.0-33.4); MEAN CORPUSCULAR HGB CONC 33.9 g/dL (32.0-36.0); MEAN CORPUSCULAR VOLUME 87 fl (80-97); MONOCYTES % (AUTO) 4.9 % (3-13); PLATELET COUNT 213 10^3/uL (150-450); RED BLOOD COUNT 5.24 10^6/uL (4.35-5.55); RED CELL DISTRIBUTION WIDTH 14.5 % (11.5-14.0); SEGMENTED NEUTROPHILS % (AUTO) 80.7 % (42-78); TOTAL CELLS COUNTED % (AUTO) 100 %; WHITE BLOOD COUNT 8.5 10^3/uL (4.0-10.5)
--- NOTE | 2019-12-06 16:01 | RADIOLOGY REPORT (SQ) ---
EXAM DESCRIPTION: CHEST 2 VIEWS IMAGES COMPLETED DATE/TIME: 12/06/2019 3:38 pm REASON FOR STUDY: sob COMPARISON: 05/20/2019 EXAM PARAMETERS: NUMBER OF VIEWS: two views TECHNIQUE: Digital Frontal and Lateral radiographic views of the chest acquired. RADIATION DOSE: NA LIMITATIONS: none FINDINGS: LUNGS AND PLEURA: No opacities, masses or pneumothorax. No pleural effusion. MEDIASTINUM AND HILAR STRUCTURES: No masses or contour abnormalities. HEART AND VASCULAR STRUCTURES: Mild central vascular prominence. Normal heart size. No overt edema. BONES: No acute findings. HARDWARE: Cervical fusion hardware. OTHER: No other significant finding. IMPRESSION: No evidence of acute cardiopulmonary process. TECHNICAL DOCUMENTATION: JOB ID: [id number] 2010 [employer]- All Rights Reserved Reading location - IP/workstation name: [email or web address]
[2019-12-06 16:02] LABS: ALBUMIN 4.2 g/dL (3.5-5.0); ALKALINE PHOSPHATASE 78 U/L (38-126); ANION GAP 9 (5-19); ASPARTATE AMINO TRANSFERASE 28 U/L (17-59); BILIRUBIN,DIRECT 0.4 mg/dL (0.0-0.4); BILIRUBIN,TOTAL 0.7 mg/dL (0.2-1.3); BLOOD UREA NITROGEN 26 mg/dL (7-20); CALCIUM 10.9 mg/dL (8.4-10.2); CARBON DIOXIDE 29 mmol/L (22-30); CHLORIDE 100 mmol/L (98-107); GLUCOSE 282 mg/dL (75-110); POTASSIUM 3.7 mmol/L (3.6-5.0); TOTAL PROTEIN 7.5 g/dL (6.3-8.2)
[2019-12-06 16:10] LABS: NT PRO BNP 56 pg/mL (<125)
[2019-12-06 16:27] LABS: TROPONIN I < 0.012 ng/mL
--- NOTE | 2019-12-06 17:46 | ER Document Report ---
ED Medical Screen (RME) - General Chief Complaint: Breathing Difficulty Stated Complaint: BREATHING PROBLEMS Time Seen by Provider: 12/06/19 14:50 Primary Care Provider: HAI WEISS MD [Primary Care Provider] - Follow up as needed Mode of Arrival: Wheelchair Information source: Patient, Emergency Med Personnel Notes: 12/06/19 14:43 - ED Nursing Note by TWIN TRENT Acct Num: [id number] : 1955 Patient Age: 64 patient arrives to ED via EMS with c/o swallowing pill and it "going into the lungs". patient reports the pill went into the "right lung". Patient c/o sore throat and cough. Patient reports he coughed up most of the pill fragments en route to ED. No acute distress noted, breathing is even and unlabored. Pt called EMS because his throat "swelled" and was concerned for inability to breathe. ED Medical Screen ([facility] notes) - General Chief Complaint: Breathing Difficulty Stated Complaint: BREATHING PROBLEMS Time Seen by Provider: 12/06/19 14:50 Primary Care Provider: HAI WEISS MD [Primary Care Provider] - Follow up as needed Mode of Arrival: Wheelchair Information source: Patient Notes: Patient states that he was taking a pill and choked on the pill. Patient states he feels as though the pill went down the right bronchus into the lobe of his lung. Patient complains of sore throat and shortness of breath. Patient was brought here by EMS and states that he did continue to cough and feels that he was able to cough up the majority of the pill. Patient complains of feeling as though his throat is swelling. Patient with continued mild shortness of breath. I have greeted and performed a rapid initial assessment of this patient. A comprehensive ED assessment and evaluation of the patient, analysis of test results and completion of the medical decision making process will be conducted by additional ED providers. TRAVEL OUTSIDE OF THE [place] IN LAST 30 DAYS: No - Related Data Allergies/Adverse Reactions: benztropine [From Cogentin] Allergy (Severe, Verified 06/15/19 14:08) Anaphylaxis codeine [Codeine] Allergy (Severe, Verified 06/15/19 14:08) HYPERACTIVE Penicillins Allergy (Mild, Verified 06/15/19 14:08) RASH Past Medical History - Social History Frequency of alcohol use: None Drug Abuse: None - Past Medical History Cardiac Medical History: Reports: Hx Congestive Heart Failure, Hx DVT, Hx Hypercholesterolemia, Hx Hypertension, Hx Pulmonary Embolism Denies: Hx Atrial Fibrillation, Hx Coronary Artery Disease, Hx Heart Attack, Hx Peripheral Vascular Disease, Hx Heart Murmur Pulmonary Medical History: Reports: Hx Asthma, Hx Bronchitis, Hx COPD, Hx Pneumonia, Hx Sleep Apnea Denies: Hx Respiratory Failure, Hx Tuberculosis Neurological Medical History: Denies: Hx Cerebrovascular Accident, Hx Seizures, Hx Parkinson's Disease Endocrine Medical History: Reports: Hx Diabetes Mellitus Type 2. Denies: Hx Graves' Disease, Hx Hyperthyroidism, Hx Hypothyroidism Renal/ Medical History: Denies: Hx Benign Prostatic Hyperplasia, Hx End Stage Renal Disease, Hx Kidney Stones, Hx Peritoneal Dialysis Malignancy Medical History: Denies Hx Leukemia, Denies Hx Lung Cancer GI Medical History: Reports: Hx Hiatal Hernia. Denies: Hx Cirrhosis, Hx Crohn's Disease, Hx Gastroesophageal Reflux Disease, Hx Hepatitis, Hx Irritable Bowel, Hx Liver Failure, Hx Pancreatitis, Hx Ulcer Musculoskeltal Medical History: Reports Hx Arthritis, Denies Hx Fibromyalgia, Denies Hx Multiple Sclerosis, Denies Hx Muscular Dystrophy, Denies Hx Systemic Lupus Erythematosus Psychiatric Medical History: Reports: Hx Anxiety, Hx Depression, Hx Post Traumatic Stress Disorder, Hx Schizoaffective Disorder, Hx Schizophrenia Denies: Hx Bipolar Disorder Traumatic Medical History: Reports: Hx Fractures Infectious Medical History: Denies: Hx Hepatitis, Hx HIV Past Surgical History: Reports: Hx Abdominal Surgery - hernia repair, Hx Cardiac Catheterization - 30% blockage, Hx Genitourinary Surgery - VASECTOMY, Hx Herniorrhaphy, Hx Oral Surgery - TOOTH EXTRACTION, Hx Orthopedic Surgery - PLATE SCREWS DISC AND BONE GRAFT: NECK, Hx Tonsillectomy. Denies: Hx Appendectomy, Hx Bowel Surgery, Hx Cholecystectomy, Hx Colostomy, Hx Coronary Artery Bypass Graft, Hx Gastric Bypass Surgery, Hx Open Heart Surgery, Hx Pacemaker - Immunizations Hx Diphtheria, Pertussis, Tetanus Vaccination: No Physical Exam - Vital signs Vitals: Temp Pulse Resp BP Pulse Ox 99.3 F 81 20 184/93 H 97 12/06/19 14:32 12/06/19 14:32 12/06/19 14:32 12/06/19 14:32 12/06/19 14:32 - Respiratory Respiratory status: No respiratory distress Breath sounds: Nonproductive cough, Other - Diminished in the bases bilaterally - Cardiovascular Rhythm: Regular Heart sounds: S1 appreciated, S2 appreciated Course - Vital Signs Vital signs: Temp Pulse Resp BP Pulse Ox 99.3 F 81 20 184/93 H 97 12/06/19 14:32 12/06/19 14:32 12/06/19 14:32 12/06/19 14:32 12/06/19 14:32 MY NOTES 64-year-old male arrives with chief complaint of shortness of breath and aspiration of pill prior to arrival. Patient reports symptoms began around 12 noon when he took all 8 of his medications which include a blood pressure pill and Benadryl capsule and Geodon/Eliquis / coenzyme Q10 /vitamin D tablet / tumeric-curcumin capsule and 1 a day [employer] silver multiple vitamin. Patient reports he got all the pills down except for 1 which felt like it was caught in his throat. He began to choke and thought that it went into his lung and he was breathing out powdery nasty tasting medication. He had tried taking his me dicines with some "coffee and water. Patient denies any prior history of similar symptoms in the past. Patient does report he had a history of a pulmonary embolism in 2004 as well as CHF. In 2010 he had TPA given through his right wrist x5. This is by patient history. He is a very pleasant very endomorphic body habitus individual with seborrheic keratosis over his face. He reports after EMS arrived he began to lay back and his symptoms became worse and only were relieved after a breathing treatment by EMS. He denied any vomiting. He does feel like he has some burning in his throat and physical exam reveals some posterior pharyngeal skin avulsions probably secondary from foreign body and coughing. TRAVEL OUTSIDE OF THE [place] IN LAST 30 DAYS: No - HPI Onset: This afternoon Onset/Duration: Sudden, Persistent Quality of pain: Achy Severity: Mild Pain Level: 1 Associated Symptoms: Cough (nonproductive), Hoarseness Exacerbated by: Deep breathing Relieved by: Remaining still Similar symptoms previously: No Recently seen / treated by doctor: No - Related Data Allergies/Adverse Reactions: benztropine [From Cogentin] Allergy (Severe, Verified 06/15/19 14:08) Anaphylaxis codeine [Codeine] Allergy (Severe, Verified 06/15/19 14:08) HYPERACTIVE Penicillins Allergy (Mild, Verified 06/15/19 14:08) RASH Past Medical History - General Information source: Patient, Emergency Med Personnel - Social History Cigarette use (# per day): No Chew tobacco use (# tins/day): No Frequency of alcohol use: None Drug Abuse: None Lives with: Family Family history: Reviewed & Not Pertinent - Past Medical History Cardiac Medical History: Reports: Hx Congestive Heart Failure, Hx DVT, Hx Hypercholesterolemia, Hx Hypertension, Hx Pulmonary Embolism Denies: Hx Atrial Fibrillation, Hx Coronary Artery Disease, Hx Heart Attack, Hx Peripheral Vascular Disease, Hx Heart Murmur Pulmonary Medical History: Reports: Hx Asthma, Hx Bronchitis, Hx COPD, Hx Pneumonia, Hx Sleep Apnea Denies: Hx Respiratory Failure, Hx Tuberculosis Neurological Medical History: Denies: Hx Cerebrovascular Accident, Hx Seizures, Hx Parkinson's Disease Endocrine Medical History: Reports: Hx Diabetes Mellitus Type 2. Denies: Hx Graves' Disease, Hx Hyperthyroidism, Hx Hypothyroidism Renal/ Medical History: Denies: Hx Benign Prostatic Hyperplasia, Hx End Stage Renal Disease, Hx Kidney Stones, Hx Peritoneal Dialysis Malignancy Medical History: Denies Hx Leukemia, Denies Hx Lung Cancer GI Medical History: Reports: Hx Hiatal Hernia. Denies: Hx Cirrhosis, Hx Crohn's Disease, Hx Gastroesophageal Reflux Disease, Hx Hepatitis, Hx Irritable Bowel, Hx Liver Failure, Hx Pancreatitis, Hx Ulcer Musculoskeltal Medical History: Reports Hx Arthritis, Denies Hx Fibromyalgia, Denies Hx Multiple Sclerosis, Denies Hx Muscular Dystrophy, Denies Hx Systemic Lupus Erythematosus Psychiatric Medical History: Reports: Hx Anxiety, Hx Depression, Hx Post Traumatic Stress Disorder, Hx Schizoaffective Disorder, Hx Schizophrenia Denies: Hx Bipolar Disorder Traumatic Medical History: Reports: Hx Fractures Infectious Medical History: Denies: Hx Hepatitis, Hx HIV Past Surgical History: Reports: Hx Abdominal Surgery - hernia repair, Hx Cardiac Catheterization - 30% blockage, Hx Genitourinary Surgery - VASECTOMY, Hx Herniorrhaphy, Hx Oral Surgery - TOOTH EXTRACTION, Hx Orthopedic Surgery - PLATE SCREWS DISC AND BONE GRAFT: NECK, Hx Tonsillectomy. Denies: Hx Appendectomy, Hx Bowel Surgery, Hx Cholecystectomy, Hx Colostomy, Hx Coronary Artery Bypass Graft, Hx Gastric Bypass Surgery, Hx Open Heart Surgery, Hx Pacemaker - Immunizations Hx Diphtheria, Pertussis, Tetanus Vaccination: No Review of Systems - Review of Systems Constitutional: No symptoms reported EENT: See HPI, Throat pain Cardiovascular: No symptoms reported Respiratory: See HPI, Cough, Wheezing Gastrointestinal: No symptoms reported Genitourinary: No symptoms reported Male Genitourinary: No symptoms reported Musculoskeletal: No symptoms reported Skin: No symptoms reported Hematologic/Lymphatic: No symptoms reported Neurological/Psychological: No symptoms reported Physical Exam - Vital signs Vitals: Temp Pulse Resp BP Pulse Ox 99.3 F 81 20 184/93 H 97 12/06/19 14:32 12/06/19 14:32 12/06/19 14:32 12/06/19 14:32 12/06/19 14:32 Interpretation: Hypertensive - General General appearance: Appears well, Other - Endomorphic body habitus - HEENT Head: Normocephalic, Atraumatic Eyes: Normal Conjunctiva: Normal Cornea: Normal Pupils: PERRL Nasal: Normal Mouth/Lips: Lesions - Lesions to posterior pharynx Pharynx: Erythema Neck: Normal - Respiratory Respiratory status: No respiratory distress Chest status: Nontender Breath sounds: Normal Chest palpation: Normal - Abdominal Inspection: Morbidly Obese Distension: No distension Bowel sounds: Normal Tenderness: Nontender - Rectal Prostate: Other - deferred - Genitourinary Scrotum: Other - deferred - Back Back: Normal - Extremities General upper extremity: Normal inspection General lower extremity: Normal inspection - Neurological Neuro grossly intact: Yes Cognition: Normal Orientation: AAOx4 [place] Coma Scale Eye Opening: Spontaneous [place] Coma Scale Verbal: Oriented [place] Coma Scale Motor: Obeys Commands [place] Coma Scale Total: 15 Speech: Normal Motor strength normal: LUE, RUE, LLE, RLE Sensory: Normal - Psychological Associated symptoms: Normal affect - Skin Skin Temperature: Warm Skin Moisture: Dry Skin Color: Other - Seborrheic dermatitis over face Course - Vital Signs Vital signs: Temp Pulse Resp BP Pulse Ox 99.3 F 81 20 184/93 H 97 12/06/19 14:32 12/06/19 14:32 12/06/19 14:32 12/06/19 14:32 12/06/19 14:32 - Laboratory Result Diagrams: 12/06/19 15:13 12/06/19 15:13 Laboratory results interpreted by me: 12/06/19 12/06/19 15:13 15:13 RDW 14.5 H Lymph % (Auto) 11.4 L Seg Neutrophils % 80.7 H BUN 26 H Glucose 282 H Calcium 10.9 H - Diagnostic Test Radiology reviewed: Reports reviewed - ct chest nad per radiology Critical Care Note - Critical Care Note Comments: I advised patient of the lab and CT findings. We will place the patient on guaifenesin and albuterol inhaler as needed and have him follow-up with robotics systems engineer. We will also empirically treat him with antibiotics at this time. Doctor's Discharge - Discharge Clinical Impression: AUTUMN (obstructive sleep apnea), Aspiration of foreign body into lung Condition: Good Disposition: HOME, SELF-CARE Additional Instructions: Follow-up with personal doctor return to ER as needed encourage fluids take medicines as directed and also follow-up with robotics systems engineer; use albuterol every 4-6 hours as needed for choking sensation. Prescriptions: Guaifenesin [Adult Tussin Chest Congestion] 100 mg PO BID PRN #120 ml PRN Reason: Cough Levofloxacin [Levaquin 500 mg Tablet] 500 mg PO DAILY #7 tablet Referrals: HAI WEISS MD [Primary Care Provider] - Follow up as needed
--- NOTE | 2019-12-06 18:23 | EKG REPORT ---
SEVERITY:- BORDERLINE ECG - SINUS RHYTHM NONSPECIFIC LATERAL ST-T CHANGES : Confirmed by: Richard Go MD 06-Dec-2019 18:21:57
[2019-12-06] MEDS ORDERED: GUAIFENESIN SYRP 200 MG/10 ML UDC PO ONE (20:17)
[2019-12-06] MEDS ORDERED: LEVOFLOXACIN 500 MG TABLET PO ONE (20:17)
--- NOTE | 2019-12-06 20:52 | RADIOLOGY REPORT (SQ) ---
PROCEDURE: CLINICAL HISTORY: 64 years Male aspiration of pill COMPARISON: None. TECHNIQUE: Contiguous axial images were obtained through the chest during the infusion of IV contrast. Reformatted images obtained. Multiplanar reformatted images obtained. This exam was performed according to our department optimization program which includes automated exposure control, adjustment of the mA and/or kv according to patient size and/or use of iterative reconstruction technique. Findings: aorta is normal in caliber without dissection or rupture. Aortic calcification and coronary calcification. No pericardial or pleural effusion. No significant thoracic adenopathy. A definite foreign object is not seen in the airway. No areas of atelectasis or infiltrate are noted. IMPRESSION: No evidence of acute process specifically no retained foreign object noted in the airway
[2019-12-06 23:17] VITALS: BP 128/89
== END 2019-12-06 22:45 | disposition home or self-care (01) ==
LOC: ER 14:00
DX: G47.33 Obstructive sleep apnea (adult) (pediatric) (principal); T17.800A Unspecified foreign body in other parts of respiratory tract causing asphyxiation, initial encounter; S10.11XA Abrasion of throat, initial encounter; J02.9 Acute pharyngitis, unspecified; R05 Cough; R06.02 Shortness of breath; X58.XXXA Exposure to other specified factors, initial encounter; E66.01 Morbid (severe) obesity due to excess calories; Z88.0 Allergy status to penicillin; Z88.8 Allergy status to other drugs, medicaments and biological substances; Z86.711 Personal history of pulmonary embolism; I50.9 Heart failure, unspecified; I11.0 Hypertensive heart disease with heart failure; J44.9 Chronic obstructive pulmonary disease, unspecified; E11.9 Type 2 diabetes mellitus without complications
CPT/HCPCS: 93005; 99285; 36415; 85025; 80053; 84484; 83880; 71046; 71260; 93010; A9270 ×2